=== PATIENT | female | born 1960 | race Caucasian/White ===

== ENCOUNTER 2017-06-15 10:24 | Inpatient (IN) | payer BC, OTHER ==
[~2017-06-15] VITALS: Ht 157.5 cm; Wt 53.2 kg
[2017-06-15] VITALS (9 sets, daily range): BP systolic 113–136; BP diastolic 62–77; PULSE 64–86; RESP 15–20; TEMP 97.5–99.2; O2SAT 99–100
[~2017-06-15 10:24] MED LIST: LISI5 PO; ONDANSETRON HCL 4 MG/2 ML VIAL IV PUSH ONE; PROPOFOL 200 MG/20 ML AMP IV ONE
--- NOTE | 2017-06-15 11:07 | PD ---
HPI Chief Complaint: Headache Time Seen by Provider: 10:46 Travel History International Travel<30 days: No Contact w/Intl Traveler<30days: No Traveled to known affect area: No History of Present Illness HPI 57yo F with PMH of HTN presents to the ED with c/o headache and bilateral lower extremity weakness today. states last normal was 7:30am today and she was walking around. Pt has had similar headache before but not this bad and headache started around 8am. Also with some tingling in bilateral legs. She states she felt a little better when she lied down. +Nausea. Denies any fever , chest pain, sob, vomiting, abdominal pain. PFSH Past Medical History Arthritis: Yes Asthma: No Heart Rhythm Problems: No Cancer: No Cardiovascular Problems: Yes (HTN) High Cholesterol: No Chest Pain: No Congestive Heart Failure: No COPD: No Diabetes: No Diminished Hearing: No Gastrointestinal Disorders: No GERD: No Glaucoma: No Genitourinary: No Hepatitis: No Hiatal Hernia: No Hypertension: Yes Kidney Stones: No Musculoskeletal: Yes Neurologic: No Reproductive: No Respiratory: No Myocardial Infarction: No Renal Failure: No Sleep Apnea: No Thyroid Disease: No Ulcer: No PNEUMOCCOCAL Vaccine (Year): 2 Menopausal: Yes Tubal Ligation: Yes (1987) Past Surgical History Abdominal Surgery: No Appendectomy: No Cardiac Surgery: No Cholecystectomy: No Ear Surgery: No Endocrine Surgery: No Eye Surgery: No Genitourinary Surgery: No Gynecologic Surgery: Yes (TUBAL LIGATION) Neurologic Surgery: No Oral Surgery: Yes Pacemaker: No Thoracic Surgery: No Other Surgery: Yes (TUBAL) Social History Alcohol Use: No Tobacco Use: No Substance Use: No Allergies-Medications (Allergen,Severity, Reaction): Coded Allergies: No Known Allergies (Verified , 02/25/16) Reported Meds & Prescriptions Reported Meds & Active Scripts Active Reported Lisinopril 5 Mg Tab 5 Mg PO DAILY Review of Systems Except as stated in HPI: all other systems reviewed are Neg Physical Exam Narrative GENERAL: 57yo F in mild distress. SKIN: Focused skin assessment warm/dry. HEAD: Abrasion chin and nose. EYES: Pupils equal and round. EOMI. No scleral icterus. No injection or drainage. ENT: No nasal bleeding or discharge. Mucous membranes pink and moist. NECK: Trachea midline. No JVD. CARDIOVASCULAR: Regular rate and rhythm. No murmur appreciated. RESPIRATORY: No accessory muscle use. Clear to auscultation. Breath sounds equal bilaterally. GASTROINTESTINAL: Abdomen soft, non-tender, nondistended. MUSCULOSKELETAL: No obvious deformities. No clubbing. No cyanosis. No edema. NEUROLOGICAL: Awake and alert. No obvious cranial nerve deficits. Pt unable to life bilateral lower extremity against gravity. NIH stroke scale 4. PSYCHIATRIC: Appropriate mood and affect; insight and judgment normal. Data Data Last Documented VS Vital Signs Date Time Temp Pulse Resp B/P Pulse Ox O2 Delivery O2 Flow Rate FiO2 06/15/17 13:00 68 15 136/66 100 06/15/17 12:22 Nasal Cannula 2 06/15/17 10:[address] Brain W/O Iv Contrast(Rout) (06/15/17 ) Complete Blood Count With Diff (06/15/17 10:56) Basic Metabolic Panel (Bmp) (06/15/17 10:56) Prothrombin Time / Inr (Pt) (06/15/17 10:56) Act Partial Throm Time (Ptt) (06/15/17 10:56) Blood Glucose (06/15/17 11:00) Cta Brain W Iv Contrast W 3d (06/15/17 ) Cta Neck W Iv Contrast W 3d (06/15/17 11:25) Type And Screen (06/15/17 11:27) I-Stat Creatinine (06/15/17 11:27) Ondansetron Inj (Zofran Inj) (06/15/17 11:45) Levetiracetam 1000 Mg Inj (Keppra 1000 M (06/15/17 11:45) Ondansetron Inj (Zofran Inj) (06/15/17 11:32) I-Stat Profile (06/15/17 11:27) Iohexol 350 Inj (Omnipaque 350 Inj) (06/15/17 12:33) Morphine Inj (Morphine Inj) (06/15/17 13:00) Admit Order (Ed Use Only) (06/15/17 13:01) Consult Neurosurgery (06/15/17 ) Labs Laboratory Tests Test 06/15/17 11:27 White Blood Count 12.1 TH/MM3 Red Blood Count 4.08 MIL/MM3 Hemoglobin 12.8 GM/DL Bedside Hemoglobin 13.6 G/DL Hematocrit 37.6 % Bedside Hematocrit 40.0 % Mean Corpuscular Volume 92.1 FL Mean Corpuscular Hemoglobin 31.2 PG Mean Corpuscular Hemoglobin 33.9 % Concent Red Cell Distribution Width 13.3 % Platelet Count 334 TH/MM3 Mean Platelet Volume 7.4 FL Neutrophils (%) (Auto) 76.3 % Lymphocytes (%) (Auto) 16.1 % Monocytes (%) (Auto) 6.5 % Eosinophils (%) (Auto) 0.6 % Basophils (%) (Auto) 0.5 % Neutrophils # (Auto) 9.3 TH/MM3 Lymphocytes # (Auto) 1.9 TH/MM3 Monocytes # (Auto) 0.8 TH/MM3 Eosinophils # (Auto) 0.1 TH/MM3 Basophils # (Auto) 0.1 TH/MM3 CBC Comment DIFF FINAL Differential Comment Prothrombin Time 10.4 SEC Prothromb Time International 0.9 RATIO Ratio Activated Partial 27.0 SEC Thromboplast Time Bedside Sodium 134 MMOL/L Sodium Level 134 MEQ/L Bedside Potassium 4.0 MMOL/L Potassium Level 4.0 MEQ/L Bedside Chloride 98 MMOL/L Chloride Level 100 MEQ/L Carbon Dioxide Level 26.3 MEQ/L Anion Gap 8 MEQ/L Bedside Blood Urea Nitrogen 13 MG/DL Blood Urea Nitrogen 12 MG/DL Creatinine 0.73 MG/DL Bedside Creatinine 0.6 MG/DL Estimat Glomerular Filtration 82 ML/MIN Rate Bedside Glucose 131 MG/DL Random Glucose 122 MG/DL Calcium Level 9.1 MG/DL Blood Type A POSITIVE Antibody Screen NEGATIVE Blood Bank Comment MDM Medical Decision Making Medical Screen Exam Complete: Yes Emergency Medical Condition: Yes Differential Diagnosis CVA vs. SAH vs. migraine headache Narrative Course 57yo F with sudden onset headache at 8am along with bilateral lower extremity weakness. CT brain showed extensive subarachnoid hemorrhage throughout frontoparietal mid to high convexities and throughout the basilar cisterns. Recommend CTA to evaluate for aneurym. Minimally prominent lateral ventricles without evidence of intraventricular blood products. Pt was empirically given keppra 1000mg IV for seizure prophylaxis. Blood pressure has been normal. I discussed case with Dr. Yen at 11:22am and he states that management depends on what the CTA shows. BP is currently 126/74. Pt is AAOx3 but nauseous and vomited. Zofran ordered. Pt reevaluated at bedside and no more episodes of vomiting. Pt still with severe headache. Since pt is in a lot pain, will give morphine 2mg IV. Labs reviewed, WBC 12.1. H/H 12.8/37.6. Platelet normal. CMP unremarkable. I discussed with case with Dr. Farley and accepted to his service. CTA brain showed [id number] saccular bilobed ACOM aneurysm that interventional radiologist states may be amendable to coiling. I discussed this with Dr. Yen and he wants pt admitted to ICU. Critical Care Narrative Aggregate critical care time was 60 minutes. Time to perform other separately billable procedures was not included in the critical care time. My time did not include minutes spent treating any other patients simultaneously or on activities that did not directly contribute to the patient's treatment. The services I provided to this patient were to treat and/or prevent clinically significant deterioration that could result in: cardiovascular collapse or . I provided critical care services requiring my management, as noted below: Chart data review, documentation time, medication orders and management, vital sign assessments/reviewing monitor data, ordering and reviewing lab tests, ordering and interpreting/reviewing x-rays and diagnostic studies, care of the patient and discussion of the patient with the admitting physicians. Diagnosis Primary Impression: SAH (subarachnoid hemorrhage) Admitting Information Admitting Physician Requests: it Nicol Campbell DO Jun 15, 2017 11:07
--- NOTE | 2017-06-15 11:21 | RADRPT ---
EXAM DATE/TIME: 06/15/2017 11:02 [facility] COMPARISON: No previous studies available for comparison. INDICATIONS : Headache with lower extremity weakness. RADIATION DOSE: 56.35 CTDIvol (mGy) MEDICAL HISTORY : Hypertension. SURGICAL HISTORY : None. ENCOUNTER: Initial ACUITY: 1 day PAIN SCALE: 8/10 LOCATION: Bilateral cranial TECHNIQUE: Multiple contiguous axial images were obtained of the head. Using automated exposure control and adj ustment of the mA and/or kV according to patient size, radiation dose was kept as low as reasonably a chievable to obtain optimal diagnostic quality images. DICOM format image data is available electro nically for review and comparison. FINDINGS: CEREBRUM: Abnormal examination. Extensive subarachnoid hemorrhage throughout the frontoparietal mid high convex ities with extra-axial blood proximal to throughout the basilar cisterns. No intraventricular fractur e noted. Ventricles are minimally prominent given the brain density no evidence of further subfalcian or transtentorial herniation. Galindo-white matter differentiation is intact. POSTERIOR FOSSA: The cerebellum and brainstem are intact. The 4th ventricle is midline. The cerebellopontine angle i s unremarkable. EXTRACRANIAL: The visualized portion of the orbits is intact. SKULL: The calvaria is intact. No evidence of skull fracture. CONCLUSION: 1. Extensive subarachnoid hemorrhage throughout the frontoparietal mid to high convexities and throug hout the basilar cisterns. Recommend CTA examination to evaluate for aneurysm. 2. Minimally prominent lateral ventricles without evidence of intraventricular blood products. Findings were personally discussed with Dr. Campbell at 11:14 AM. Brown Schuler MD on June 15, 2017 at 11:12 Board Certified Radiologist. This report was verified electronically.
[2017-06-15] MEDS ORDERED: ONDANSETRON HCL 4 MG/2 ML VIAL ONE (11:32)
[2017-06-15] MEDS ORDERED: levETIRAcetam 1000 MG INJ 100 ML IV ONE (11:45)
[2017-06-15] MEDS ORDERED: ONDANSETRON HCL 4 MG/2 ML VIAL IV PUSH ONE (11:45)
[2017-06-15 11:47] LABS: AUTOMATED NEUTROPHIL # 9.3 TH/MM3 (1.8-7.7); BASOPHIL # 0.1 TH/MM3 (0-0.2); BASOPHIL % 0.5 % (0.0-2.0); EOSINOPHIL # 0.1 TH/MM3 (0-0.4); EOSINOPHIL % 0.6 % (0.0-4.0); HEMATOCRIT 37.6 % (35.0-46.0); HEMO FLAGS DIFF FINAL; LYMPH % 16.1 % (9.0-44.0); LYMPHOCYTE # 1.9 TH/MM3 (1.0-4.8); MEAN CELL VOLUME 92.1 FL (80.0-100.0); MEAN CORPUSCULAR HEMOGLOBIN 31.2 PG (27.0-34.0); MEAN CORPUSCULAR HGB CONC 33.9 % (32.0-36.0); MONO % 6.5 % (0.0-8.0); NEUT % 76.3 % (16.0-70.0); PLATELET COUNT 334 TH/MM3 (150-450); RED BLOOD COUNT 4.08 MIL/MM3 (4.00-5.30); RED CELL DISTRIBUTION WIDTH 13.3 % (11.6-17.2); WHITE BLOOD COUNT 12.1 TH/MM3 (4.0-11.0)
[2017-06-15 11:55] LABS: INTERNATIONAL NORMALIZED RATIO 0.9 RATIO; PROTHROMBIN TIME - PATIENT 10.4 SEC (9.8-11.6)
[2017-06-15 12:05] LABS: BICARBONATE 26.3 MEQ/L (21.0-32.0)
[2017-06-15] MEDS ORDERED: IOHEXOL 350 MG/ML 10 ML VIAL (for RAD DIAG) IV ONE (12:33)
[2017-06-15] MEDS ORDERED: MORPHINE SULFATE 4 MG/ML INJ IV PUSH ONE (13:00)
--- NOTE | 2017-06-15 13:00 | RADRPT ---
EXAM DATE/TIME: 06/15/2017 12:10 [facility] COMPARISON: CT BRAIN W/O CONTRAST, June 15, 2017, 11:02. INDICATIONS : Evaluate bleed IV CONTRAST: 75 cc Omnipaque 350 (iohexol) IV ; Cumulative dose for multiple exams. RADIATION DOSE: 24.36 CTDIvol (mGy) ; Combined studies MEDICAL HISTORY : Hypertension. SURGICAL HISTORY : Tubal ligation. ENCOUNTER: Initial ACUITY: 1 day PAIN SCALE: 10/10 LOCATION: CTA BRAIN TECHNIQUE: Volumetric scanning was performed using a multi-row detector CT scanner. The data was post processed with a variety of visualization algorithms including full volume maximum intensity projection, multi -planar sliding thin slab reformation, curved planar reformation, and surface rendering techniques. Using automated exposure control and adjustment of the mA and/or kV according to patient size, radiat ion dose was kept as low as reasonably achievable to obtain optimal diagnostic quality images. DICO M format image data is available electronically for review and comparison. FINDINGS: There is excellent visualization of the major intracranial arteries out to the second-order branch ve ssels. A 5 x 4 x 3 mm saccular aneurysm is seen arising from the anterior communicating artery. It i s lobulated in contour. It projects left anteriorly and inferiorly. The dome to neck ratio is approxi mately 1.3. There is absence of the right A1 segment with a dominant left A1 segment and anterior com municating artery. Persistent circulation is seen on the right. No other aneurysms observed. Th e ICAs are quite tortuous. No significant vasospasm. CONCLUSION: 5 x 4 x 3 mm saccular, bilobed ACOM aneurysm as detailed above. Emile Walker Jr., MD on June 15, 2017 at 12:46 Board Certified Radiologist. This report was verified electronically.
--- NOTE | 2017-06-15 13:02 | RADRPT ---
EXAM DATE/TIME: 06/15/2017 12:10 [facility] COMPARISON: No previous studies available for comparison. INDICATIONS : Evaluate bleed IV CONTRAST: 75 cc Omnipaque 350 (iohexol) IV RADIATION DOSE: 24.36 CTDIvol (mGy) MEDICAL HISTORY : Hypertension. SURGICAL HISTORY : Tubal ligation. ENCOUNTER: Initial ACUITY: 1 day PAIN SCALE: 10/10 LOCATION: CTA NECK Elevated flow velocities and ICA/CCA ratios have been found to correlate with increased degrees of vessel stenosis, calculated as percentage of diameter relative to a normal segment of distal ICA/CCA. TECHNIQUE: Volumetric scanning was performed using a multirow detector CT scanner. The data was post processed with a variety of visualization algorithms including full-volume maximum intensity projection, multip lanar sliding thin-slab reformation, curved-planar reformation, and surface-rendering techniques. Us ing automated exposure control and adjustment of the mA and/or kV according to patient size, radiatio n dose was kept as low as reasonably achievable to obtain optimal diagnostic quality images. DICOM f ormat image data is available electronically for review and comparison. FINDINGS: AORTIC ARCH: The left common carotid artery arises from the right brachiocephalic artery. The left subclavian lisandro ry is normal.. No evidence of ostial narrowing. Separate origin of the left vertebral artery. RIGHT CAROTID: The common carotid artery is intact. The carotid bulb has a normal configuration without ulceration o r narrowing. The internal carotid artery lumen is smooth without stenosis. The external carotid lisandro ry is intact. LEFT CAROTID: The common carotid artery is intact. The carotid bulb has a normal configuration without ulceration or narrowing. The internal carotid artery lumen is smooth without stenosis. The external carotid ar kalpesh is intact. VERTEBRALS: The vertebral arteries have a symmetric diameter. No stenotic lesions are seen. CONCLUSION: 1. No stenosis of either carotid artery. 2. No aneurysm seen. 3. Normal variants of the aortic arch. Pascual Sanderson MD on June 15, 2017 at 12:56 Board Certified Radiologist. This report was verified electronically.
[2017-06-15] MEDS ORDERED: fentaNYL CITRATE 250 MCG/5 ML AMP ONE (13:28)
[2017-06-15] MEDS ORDERED: MAGNESIUM HYDROXIDE SUSP 30 ML CUP PO PRN (13:30)
[2017-06-15] MEDS ORDERED: SENNOSIDES 8.6 MG TAB PO PRN (13:30)
[2017-06-15] MEDS ORDERED: CHLORHEXIDINE GLUCONATE 2 % 1 PACK (2 CLOTHS) TOP PRN (13:30)
[2017-06-15] MEDS ORDERED: LACTULOSE SYRUP 20 GM/30 ML CUP PO PRN (13:30)
[2017-06-15] MEDS ORDERED: MISCELLANEOUS NURSING INFORMATION XX SCH (13:30)
[2017-06-15] MEDS ORDERED: BISACODYL 10 MG SUPP RECTAL PRN (13:30)
[2017-06-15] MEDS ORDERED: VERAPAMIL HCL 5 MG/2 ML VIAL ONE ×2 (13:40→14:43)
[2017-06-15] MEDS ORDERED: LISI-519 PO (14:06)
--- NOTE | 2017-06-15 14:13 | MB ---
cc: JACY BORGES M.D. DATE OF CONSULTATION: 06/15/2017 REASON FOR CONSULTATION Subarachnoid hemorrhage from ruptured cerebral aneurysm. HISTORY OF PRESENT ILLNESS This 57-year-old right-handed female had the acute onset of severe headache early this morning and also complained of weakness in her legs, left more than right, along with paresthesias and subsequently became more lethargic. She was found on the floor by her with positive complaints of nausea. On arrival to the emergency room she was lethargic but responsive. CT scan of the head obtained reveals extensive diffuse subarachnoid hemorrhage involving the basal cisterns and also extending into the bilateral sylvian fissure and interhemispheric fissure and prepontine fissure along with suprasellar cistern. There is also mild hydrocephalus associated with this and slight dilation of the temporal horns bilaterally. 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 The patient is lethargic but does respond to verbal commands and follows simple instructions. PAST MEDICAL HISTORY Hypertension, otherwise unremarkable. MEDICATIONS She is on lisinopril 5 mg daily. ALLERGIES No known drug allergies. SOCIAL HISTORY She is and her and daughter are here with her. She smokes a pack of cigarettes a day and usually drinks a few beers a day. REVIEW OF SYSTEMS Positive for headache. Positive for nausea and vomiting. Positive for weakness and numbness in her legs. Positive for lethargy. Otherwise all systems are negative. LABORATORY STUDIES White blood cell count 12.1, hemoglobin 12.8, platelet count 334. PT 10.4, INR 0.9, PTT 27. Sodium 134, potassium 4.0, BUN 13, creatinine 0.6, glucose 131. PHYSICAL EXAMINATION VITAL SIGNS: Temperature 99.2, pulse 73, respiratory rate 18, blood pressure 132/75. Oxygen saturation 100% on two liters nasal cannula. HEAD: Normocephalic, atraumatic. NECK: She has nuchal rigidity. CHEST: Clear to auscultation bilaterally. HEART: Regular rate and rhythm. Normal S1, S2. ABDOMEN: Soft, nontender. EXTREMITIES: No cyanosis or edema. NEUROLOGIC: She is lethargic but arouses to verbal stimulation briefly. Pupils are equal and reactive. Extraocular muscles are intact. Face is symmetric. She moves all four extremities although relates weakness in the left lower extremity, 4-/5. Negative Babinski. Her speech is fluent. She is oriented to name, location, the month and year. IMPRESSION 1. 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 2. Hypertension. PLAN I have discussed the findings with the interventional radiologist, Dr. Emile Walker, who feels that this aneurysm can be treated endovascularly with coiling and he plans on proceeding with this procedure. She will be started on nimodipine for vasospasm prophylaxis along with Keppra for seizure prophylaxis. Her head of bed will be kept elevated at 30 degrees. Sequential compression devices will be used for DVT prophylaxis along with Protonix for gastrointestinal stress ulcer prophylaxis. Until the aneurysm has been coiled and secured will maintain the systolic blood pressure less than 150s to decrease the risk of re-bleed. If her neurologic condition deteriorates then I also recommended that she be intubated for airway control and will place a ventriculostomy for treatment of progression of this hydrocephalus. I have discussed the findings at length with the patient, and daughter as well as the sequelae of subarachnoid hemorrhage which includes development of hydrocephalus, vasospasm, stroke, brain swelling with consequent significant neurologic deficits including coma and . Her condition obviously is very critical with a guarded prognosis. MD CM Mcdonald/GILBERTO /1:41 PM /2:04 PM
[2017-06-15] MEDS ORDERED: ceFAZolin 2 GM PREMIX 50 ML ONE (14:22)
[2017-06-15] MEDS ORDERED: HEPARIN SODIUM - IV 10,000 UNITS/10 ML VIAL ONE (14:43)
--- NOTE | 2017-06-15 14:52 | HHI.HP ---
HPI Service Critical Care Medicine Primary Care Physician Unknown Admission Diagnosis SAH Diagnosis: (1) SAH (subarachnoid hemorrhage) Diagnosis: Principal (2) Aneurysm of anterior communicating artery Diagnosis: Principal Chief Complaint: Headache, leg weakness Travel History International Travel<30 Days: No Contact w/Intl Traveler <30 Da: No Traveled to Known Affected Are: No History of Present Illness 57 y/o woman with history of hypertension presents to ED after about 6 hours of worsening headache, followed by nausea and lower extremity weakness. CT head reveals diffuse subarachnoid hemorrhage. CTA demonstrates anterior communicating artery aneurysm. Reviewed by Drs. Yen and Aaron, taken directly to interventional radiology for coiling. BP control accomplished, nimodipine, Keppra started. Review of Systems Constitutional: DENIES: Diaphoretic episodes, Fatigue, Fever, Weight gain, Weight loss, Chills, Dizziness, Change in appetite, Night Sweats Endocrine: DENIES: Abnorml menstrual pattern, Heat/cold intolerance, Polydipsia , Polyuria, Polyphagia Eyes: DENIES: Blurred vision, Diplopia, Eye inflammation, Eye pain, Vision loss , Photosensitivity, Double Vision Ears, nose, mouth, throat: DENIES: Tinnitus, Hearing loss, Vertigo, Nasal discharge, Oral lesions, Throat pain, Hoarseness, Ear Pain, Running Nose, Epistaxis, Sinus Pain, Toothache, Odynophagia Respiratory: DENIES: Apneas, Cough, Snoring, Wheezing, Hemoptysis, Sputum production, Shortness of breath Cardiovascular: DENIES: Chest pain, Palpitations, Syncope, Dyspnea on Exertion , PND, Lower Extremity Edema, Orthopnea, Claudication Musculoskeletal: DENIES: Joint pain, Muscle aches, Stiffness, Joint Swelling, Back pain, Neck pain Integumentary: DENIES: Abnormal pigmentation, Pruritus, Rash, Nail changes, Breast masses, Breast skin changes, Nipple discharge Hematologic/lymphatic: DENIES: Bruising, Lymphadenopathy Neurologic: COMPLAINS OF: Headache, Localized weakness Psychiatric: DENIES: Anxiety, Confusion, Mood changes, Depression, Hallucinations, Agitation, Suicidal Ideation, Homicidal Ideation, Delusions Past Family Social History Allergies: Coded Allergies: No Known Allergies (Verified , 02/25/16) Past Medical History Past Medical History Arthritis: Yes Asthma: No Heart Rhythm Problems: No Cancer: No Cardiovascular Problems: Yes (HTN) High Cholesterol: No Chest Pain: No Congestive Heart Failure: No COPD: No Diabetes: No Diminished Hearing: No Gastrointestinal Disorders: No GERD: No Glaucoma: No Genitourinary: No Hepatitis: No Hiatal Hernia: No Hypertension: Yes Kidney Stones: No Musculoskeletal: Yes Neurologic: No Reproductive: No Respiratory: No Myocardial Infarction: No Renal Failure: No Sleep Apnea: No Thyroid Disease: No Ulcer: No PNEUMOCCOCAL Vaccine (Year): 2 Menopausal: Yes Tubal Ligation: Yes (1987) Past Surgical History Abdominal Surgery: No Appendectomy: No Cardiac Surgery: No Cholecystectomy: No Ear Surgery: No Endocrine Surgery: No Eye Surgery: No Genitourinary Surgery: No Gynecologic Surgery: Yes (TUBAL LIGATION) Neurologic Surgery: No Oral Surgery: Yes Pacemaker: No Thoracic Surgery: No Other Surgery: Yes (TUBAL) Social History Alcohol Use: No Tobacco Use: No Substance Use: No Allergies-Medications Allergies-Medications (Allergen,Severity, Reaction): Coded Allergies: No Known Allergies (Verified , 02/25/16) Reported Meds & Prescriptions Reported Meds & Active Scripts Active Reported Lisinopril 5 Mg Tab 5 Mg PO DAILY Physical Exam Vital Signs Vital Signs Date Time Temp Pulse Resp B/P Pulse Ox O2 Delivery O2 Flow Rate FiO2 06/15/17 13:40 16 99 Nasal Cannula 06/15/17 13:00 68 15 136/66 100 06/15/17 12:22 73 18 132/75 100 Nasal Cannula 2 06/15/17 11:53 66 20 130/65 100 06/15/17 11:04 135/77 06/15/17 10:38 99.2 74 16 126/74 100 06/15/17 10:38 100 Nasal Cannula 2 Physical Exam Gen: Lethargic, midde age woman. Head: Atraumatic. Neck: Supple, airway widely patent. Lungs: Clear, no wheezes or crackles. Normal excursions. Heart: RRR, no m,r. No JVD. Abdomen: Soft, no guarding. Extremities: Warm, well perfused. Neuro: O X 3, lethargic. Moves 4 limbs to command and can now lift both legs with 5/5 strength. DORYS, EOMs intact. Tracks with eyes, DORYS. Laboratory Laboratory Tests Test 06/15/17 11:27 White Blood Count 12.1 Red Blood Count 4.08 Hemoglobin 12.8 Bedside Hemoglobin 13.6 Hematocrit 37.6 Bedside Hematocrit 40.0 Mean Corpuscular Volume 92.1 Mean Corpuscular Hemoglobin 31.2 Mean Corpuscular Hemoglobin 33.9 Concent Red Cell Distribution Width 13.3 Platelet Count 334 Mean Platelet Volume 7.4 Neutrophils (%) (Auto) 76.3 Lymphocytes (%) (Auto) 16.1 Monocytes (%) (Auto) 6.5 Eosinophils (%) (Auto) 0.6 Basophils (%) (Auto) 0.5 Neutrophils # (Auto) 9.3 Lymphocytes # (Auto) 1.9 Monocytes # (Auto) 0.8 Eosinophils # (Auto) 0.1 Basophils # (Auto) 0.1 CBC Comment DIFF FINAL Differential Comment Prothrombin Time 10.4 Prothromb Time International 0.9 Ratio Activated Partial 27.0 Thromboplast Time Bedside Sodium 134 Sodium Level 134 Bedside Potassium 4.0 Potassium Level 4.0 Bedside Chloride 98 Chloride Level 100 Carbon Dioxide Level 26.3 Anion Gap 8 Bedside Blood Urea Nitrogen 13 Blood Urea Nitrogen 12 Creatinine 0.73 Bedside Creatinine 0.6 Estimat Glomerular Filtration 82 Rate Bedside Glucose 131 Random Glucose 122 Calcium Level 9.1 Blood Type A POSITIVE Antibody Screen NEGATIVE Blood Bank Comment Result Diagram: 06/15/17 1127 06/15/17 1127 Assessment and Plan Problem List: (1) SAH (subarachnoid hemorrhage) ICD Code: I60.9 Status: Acute (2) Aneurysm of anterior communicating artery ICD Code: I67.1 Status: Acute Assessment and Plan Plan: 1. BP control < 140/90 with cardene prn. 2. Labetalol prn immediate control. 3. HOB elevated. 4. No chemical DVT prophylaxis. 5. SCDs. 6. NS iv at 50/hr. 7. Nimodipine 60 mg q4h. 8. Electrolyte protocol. 9. To IR for coiling. 10. Protonix. Overall impression: Extensive SAH associated with a-com aneurysm. She is critically ill and will likely require intubation and mechanical ventilation. BP control acceptable. Update: Back from IR and successful coiling. Extubated in PACU. Lethargic. Will follow airway closely. Critical care 44 mins Eric Karimi MD Jun 15, 2017 14:52
[2017-06-15] MEDS ORDERED: IODIXANOL 320 MG/ML 50 ML VIAL (for RAD SPEC) I-ARTERIAL ONE (15:45)
[2017-06-15] MEDS ORDERED: SODIUM PHOSPHATE INJ 30 MMOL in SODIUM CHLOR 0.9% 250 ML INJ 240 ML IV PRN (16:15)
[2017-06-15] MEDS ORDERED: MAGNESIUM OXIDE 400 MG TAB PO PRN (16:15)
[2017-06-15] MEDS ORDERED: POTASSIUM PHOSPHATE INJ 30 MMOL in SODIUM CHLOR 0.9% 250 ML INJ 250 ML IV PRN (16:15)
[2017-06-15] MEDS ORDERED: POTASSIUM CHLOR 20 MEQ PREMIX 100 ML IV PRN ×2 (16:15)
[2017-06-15] MEDS ORDERED: MAGNESIUM SULFATE INJ 4 GM in SODIUM CHLORIDE 0.9% INJ 92 ML IV PRN (16:15)
[2017-06-15] MEDS ORDERED: POTASSIUM CHLORIDE 25 MEQ EFFERVESCENT TAB PO PRN (16:15)
[2017-06-15] MEDS ORDERED: POTASSIUM PHOSPHATE MONOBASIC 500 MG TAB PO PRN (16:15)
[2017-06-15] MEDS ORDERED: POTASSIUM CHLOR 40 MEQ PREMIX 100 ML IV PRN ×2 (16:15)
[2017-06-15] MEDS ORDERED: POTASSIUM PHOSPHATE MONOBASIC 500 MG TAB PO/TUBE PRN (16:15)
[2017-06-15] MEDS ORDERED: MAGNESIUM SULFATE INJ 2 GM in SODIUM CHLORIDE 0.9% INJ 96 ML IV PRN (16:15)
--- NOTE | 2017-06-15 16:59 | PD.RAD ---
Post Procedure Progress Note Pre Procedure Diagnosis: (1) SAH (subarachnoid hemorrhage) (2) Aneurysm of anterior communicating artery Post Procedure Diagnosis: (1) SAH (subarachnoid hemorrhage) (2) Aneurysm of anterior communicating artery Procedure Date: Jun 15, 2017 Supervising Radiologist: Emile Walker JR Proceduralist/Assist: Dolores Mahmood, RT(R)(), Scar Hernandez, RT(R), Елена Chandler, RT(R), Caity Cabrera, RT(R)() Anesthesia: General Plan of Activity Patient to Unit: PACU Patient Condition: Good See PACS Report for procedural detail/treatment Vascular-Arterial Procedure Procedure 1 Procedure Site: Cerebral Procedure(s): Intracranial Aneurysm Repair Access Access Site(s): Right Femoral Artery Closure Site(s): Right vascular closure device Findings: 5x4x3 mm ACOM aneurysm successfully treated with coil embolization. No significant vasospasm seen involving the left intracranial vasculature. Jr. Aaron,Emile Dhaliwal MD Jun 15, 2017 16:59
[2017-06-15] MEDS ORDERED: DO NOT ADM ANY ANTICOAGULANT DRUGS PRN (17:00)
[2017-06-15] MEDS ORDERED: TERBUTALINE INJ 1 MG/ML AMP SQ PRN (18:45)
[2017-06-15] MEDS: levETIRAcetam INJ 500 MG in SODIUM CHLORIDE 0.9% INJ 100 ML IV SCH (20:00)
[2017-06-15] MEDS ORDERED: niCARdipine INJ 25 MG in SODIUM CHLOR 0.9% 250 ML INJ 250 ML IV SCH (20:00)
[2017-06-15] MEDS: DOCUSATE SODIUM 50 MG/SENNA 8.6 MG TAB PO SCH (20:01)
[2017-06-15] MEDS: niMODipine 30 MG CAP PO SCH (20:01)
[2017-06-15] MEDS: NOREPINEPHRINE-DEXTROSE DRIP 250 ML IV SCH (20:05)
[2017-06-15] MEDS: ONDANSETRON HCL 4 MG/2 ML VIAL IV PRN (22:00)
[2017-06-16] VITALS (10 sets, daily range): BP systolic 118–138; BP diastolic 56–74; PULSE 58–100; RESP 12–24; TEMP 97.7–98.8; O2SAT 95–99
[2017-06-16] MEDS: ONDANSETRON HCL 4 MG/2 ML VIAL IV PRN ×2 (03:38→13:42)
[2017-06-16] MEDS: CHLORHEXIDINE GLUCONATE 2 % 1 PACK (2 CLOTHS) TOP SCH (04:00)
[2017-06-16] MEDS: niMODipine 30 MG CAP PO SCH ×6 (04:27→20:30)
[2017-06-16 05:19] LABS: BICARBONATE 25.7 MEQ/L (21.0-32.0); MAGNESIUM 1.9 MG/DL (1.5-2.5); POTASSIUM 3.5 MEQ/L (3.5-5.1)
[2017-06-16] MEDS: SODIUM CHLOR 0.9% 1000 ML INJ 1,000 ML IV SCH ×2 (06:08→17:47)
[2017-06-16] MEDS: MORPHINE SULFATE 4 MG/ML INJ IV PRN ×3 (07:58→11:15)
[2017-06-16] MEDS: PANTOPRAZOLE SOD 40 MG DELAYED RELEASE TAB PO SCH (09:48)
[2017-06-16] MEDS: DOCUSATE SODIUM 50 MG/SENNA 8.6 MG TAB PO SCH ×2 (09:48→20:30)
[2017-06-16] MEDS: levETIRAcetam INJ 500 MG in SODIUM CHLORIDE 0.9% INJ 100 ML IV SCH ×2 (09:48→20:28)
--- NOTE | 2017-06-16 10:32 | EKG ---
Date Performed: 06/15/2017 Time Performed: 11:28:46 PTAGE: 57 years EKG: Sinus rhythm NORMAL ECG NO PREVIOUS TRACING DOCTOR: Anant Vivar Interpretating Date/Time 06/16/2017 10:30:29
--- NOTE | 2017-06-16 10:49 | HHI.NSPN ---
(Pascual Flores) History Chief Complaint: Headache. Ruptured POLLO aneurysm, s/p coiling. (Pascual Flores) Interval History This 57-year-old right-handed female had the acute onset of severe headache early this morning and also complained of weakness in her legs, left more than right, along with paresthesias and subsequently became more lethargic. She was found on the floor by her with positive complaints of nausea. On arrival to the emergency room she was lethargic but responsive. CT scan of the head obtained reveals extensive diffuse subarachnoid hemorrhage involving the basal cisterns and also extending into the bilateral sylvian fissure and interhemispheric fissure and prepontine fissure along with suprasellar cistern. There is also mild hydrocephalus associated with this and slight dilation of the temporal horns bilaterally. 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 The patient is lethargic but does respond to verbal commands and follows simple instructions. 06/16/17: 5x4x3 mm ACOM aneurysm successfully treated with coil embolization on 06/15/17. No significant vasospasm seen involving the left intracranial vasculature per interventional radiology. Pt awakens to voice. Complains of headache all over. Has nausea and had episode of vomiting last night. Pt denies any paresthesias or weakness. She is lethargic and prefers her eyes closed, but awakens to voice. (Pascual Flores) Review of Systems General: Negative for: fever, chills, insomnia Respiratory: Negative for: shortness of breath, cough, sputum Cardiovascular: Negative for: chest pain Gastrointestinal: Positive for: nausea, vomitting, Negative for: diarrhea, constipation (Pascual Flores) Exam Results Vital Signs Date Time Temp Pulse Resp B/P Pulse Ox O2 Delivery O2 Flow Rate FiO2 06/16/17 07:00 96 Nasal Cannula 1.00 06/16/17 07:00 100 06/16/17 04:00 97.9 14 118/56 Intake and Output 06/15/17 06/15/17 06/16/17 08:00 16:00 00:00 Intake Total 2374 ml Output Total 710 ml Balance 1664 ml (Pascual Flores) Physical Examination Resp: CTA bilaterally Heart: NSR no murmurs Abd: Soft positive bs Skin: No cyanosis or erythema Muscle: Moves all 4 extremities, appears symmetric. Neuro: Pt awakens to voice but lethargic. Prefers eyes closed given her headache. She follows simple commands. Answers questions with simple yes/no response. Pupils 3mm bilaterally reactive bilaterally. Sensation intact to light touch in face and extremities. (Pascual Flores) Lab, Micro, Other Results Last Impressions Neck CTA 06/15/17 1125 Signed Impressions: Service Date/Time: Thursday, June 15, 2017 12:10 - CONCLUSION: 1. No stenosis of either carotid artery. 2. No aneurysm seen. 3. Normal variants of the aortic arch. Pascual Sanderson MD Head CTA 06/15/17 0000 Signed Impressions: Service Date/Time: Thursday, June 15, 2017 12:10 - CONCLUSION: 5 x 4 x 3 mm saccular, bilobed ACOM aneurysm as detailed above. Emile Walker Jr., MD Head CT 06/15/17 0000 Signed Impressions: Service Date/Time: Thursday, June 15, 2017 11:02 - CONCLUSION: 1. Extensive subarachnoid hemorrhage throughout the frontoparietal mid to high convexities and throughout the basilar cisterns. Recommend CTA examination to evaluate for aneurysm. 2. Minimally prominent lateral ventricles without evidence of intraventricular blood products. Findings were personally discussed with Dr. Campbell at 11:14 AM. Brown Schuler MD Laboratory Tests Test 06/15/17 06/15/17 06/16/17 11:27 18:40 04:33 White Blood Count 12.1 TH/MM3 Red Blood Count 4.08 MIL/MM3 Hemoglobin 12.8 GM/DL Bedside Hemoglobin 13.6 G/DL Hematocrit 37.6 % Bedside Hematocrit 40.0 % Mean Corpuscular Volume 92.1 FL Mean Corpuscular Hemoglobin 31.2 PG Mean Corpuscular Hemoglobin 33.9 % Concent Red Cell Distribution Width 13.3 % Platelet Count 334 TH/MM3 Mean Platelet Volume 7.4 FL Neutrophils (%) (Auto) 76.3 % Lymphocytes (%) (Auto) 16.1 % Monocytes (%) (Auto) 6.5 % Eosinophils (%) (Auto) 0.6 % Basophils (%) (Auto) 0.5 % Neutrophils # (Auto) 9.3 TH/MM3 Lymphocytes # (Auto) 1.9 TH/MM3 Monocytes # (Auto) 0.8 TH/MM3 Eosinophils # (Auto) 0.1 TH/MM3 Basophils # (Auto) 0.1 TH/MM3 CBC Comment DIFF FINAL Differential Comment Prothrombin Time 10.4 SEC Prothromb Time International 0.9 RATIO Ratio Activated Partial 27.0 SEC Thromboplast Time Bedside Sodium 134 MMOL/L Sodium Level 134 MEQ/L 140 MEQ/L Bedside Potassium 4.0 MMOL/L Potassium Level 4.0 MEQ/L 3.5 MEQ/L Bedside Chloride 98 MMOL/L Chloride Level 100 MEQ/L 107 MEQ/L Carbon Dioxide Level 26.3 MEQ/L 25.7 MEQ/L Anion Gap 8 MEQ/L 7 MEQ/L Bedside Blood Urea Nitrogen 13 MG/DL Blood Urea Nitrogen 12 MG/DL 8 MG/DL Creatinine 0.73 MG/DL 0.59 MG/DL Bedside Creatinine 0.6 MG/DL Estimat Glomerular Filtration 82 ML/MIN 104 ML/MIN Rate Bedside Glucose 131 MG/DL Random Glucose 122 MG/DL 158 MG/DL Calcium Level 9.1 MG/DL 8.4 MG/DL Blood Type A POSITIVE Antibody Screen NEGATIVE Blood Bank Comment Nasal Screen MRSA (PCR) MRSA NOT DETECTED Phosphorus Level 2.8 MG/DL Magnesium Level 1.9 MG/DL 06/15/17 06/15/17 06/16/17 15:00 23:00 07:00 Intake Total 2374 ml 902 ml Output Total 710 ml 625 ml Balance 1664 ml 277 ml Intake Oral 360 ml IV Total 414 ml 902 ml Other 1600 ml Output Urine Total 700 ml 625 ml Estimated Blood Loss 10 ml # Bowel Movements 0 0 (Pascual Flores) Medical Decision Making Impression and Plan A: 57 y/o FM with diffuse subarachnoid hemorrhage involving the basal cisterns as well as the interhemispheric fissure with a mild hydrocephalus from a ruptured anterior communicating artery aneurysm. s/p aneurysm coiling by radiology special procedures. 2. Hypertension. PLAN Continue with close neuro checks. OOB to chair today Continue to monitor vitals. (Pascual Flores) Attending Statement The exam, history, and the medical decision-making described in the above note were completed with the assistance of the mid-level provider. I reviewed and agree with the findings presented. I attest that I had a [id number] encounter with the patient on the same day, and personally performed and documented my assessment and findings in the medical record. More alert and interactive today. Follows simple commands and moves all [address] scan of the head the pending this morning. Continue with close neurologic monitoring as she is high risk for development of vasospasm, hydrocephalus and cerebral swelling. Discussed with and family at bedside. relates that she is very anxious and restless and was requested we prescribe some sedatives. (Raffy Yen MD) Pascual Flores Jun 16, 2017 10:49 Raffy Yen MD Jun 16, 2017 11:21
--- NOTE | 2017-06-16 12:58 | RADRPT ---
EXAM DATE/TIME: 06/16/2017 12:10 [facility] COMPARISON: Prior study 06/15/17, use for comparison. INDICATIONS : Subarachnoid hemorrhage RADIATION DOSE: 29.52 CTDIvol (mGy) MEDICAL HISTORY : Hypertension. SURGICAL HISTORY : Tubal ligation. Coiling ENCOUNTER: Subsequent ACUITY: 2 days PAIN SCALE: 7/10 LOCATION: Cranial TECHNIQUE: Multiple contiguous axial images were obtained of the head. Using automated exposure control and adj ustment of the mA and/or kV according to patient size, radiation dose was kept as low as reasonably a chievable to obtain optimal diagnostic quality images. DICOM format image data is available electro nically for review and comparison. FINDINGS: Non-contrast head CT demonstrate there is significant residual subarachnoid hemorrhage throughout the suprasellar cistern and the subarachnoid space anteriorly. There is significant hemorrhage in both S ylvian fissures. There is hemorrhage around the perimesencephalic cisterns as well. The ventricles are mil dly prominent for age. There has been coiling of the anterior communicating aneurysm. CONCLUSION: The amount of subarachnoid hemorrhage is stable from the previous study. Aneurysm coil in good posit ion. Mild prominence of the ventricular system. Anant Cohen MD on June 16, 2017 at 12:39 Board Certified Radiologist. This report was verified electronically.
[2017-06-16] MEDS: ACETAMINOPHEN/HYDROcodone 325 MG/10 MG TAB PO PRN ×3 (13:42→22:48)
--- NOTE | 2017-06-16 14:46 | RADRPT ---
EXAM DATE/TIME: 06/15/2017 13:11 [facility] COMPARISON: No previous studies available for comparison. INDICATIONS : Patient presents with a acute subarachnoid hemorrhage secondary to ruptured anterior communicating ar kalpesh aneurysm. Patient has headache. Neurologically intact.. MEDICAL HISTORY : Arthritis Hypertension SURGICAL HISTORY : Tubal ligation Oral Surgery ENCOUNTER: Initial ACUITY: 1 day PAIN SCORE: 9/10 LOCATION: Headache FLUORO TIME: 46.0 minutes IMAGE SERIES: 24 ACCESS SITE: Right Femoral artery CONTRAST: 130 cc Visipaque (iodixanol) DEVICE(S): 1.) Left Anterior communicating artery 3mm x 8cm Orbit galaxy complex xtrasoft embolic coil(s) 2.) Left Anterior communicating artery 2.5mm x 3.5cm Orbit galaxy complex xtrasoft embolic coil(s) 3.) Right common femoral artery 6fr Angio-Seal TECH NOTE: Anesthesia assisted during procedure.SELINA SANTANA MR#:[id number] DOB03/ Exam Dt/Desc: May 292016ANGIOGRAM, CEREBRAL WO ARCH PROCEDURE : 1. Ultrasound-guided puncture of the access site. 2. Angiography of the access site prior to closure device. 3. Conscious sedation with continuous EKG and Oximetry monitoring. 4. Percutaneous closure of the access site. 5. Angiography of the aortic arch 6. Angiography of the left common carotid artery 7. angiography of the left internal carotid artery 8. Angiography of the left anterior cerebral artery 9. Coil embolization of an anterior communicating artery aneurysm The risks, benefits and alternatives to the procedure were explained and verbal and written consent w as obtained from the patient as well as the patient's . I reviewed the patient's CTA. The site was prepped in sterile fashion. Full sterile technique was used, including cap, mask, sterile glove s and gown and a large sterile sheet. Hand hygiene and 2% chlorhexidine and/or betadine/alcohol prep was utilized per protocol for cutaneous antisepsis. The skin and subcutaneous tissues were infiltra blanca with local anesthetic solution. With ultrasound and fluoroscopic guidance the right common femoral artery was punctured and a vascula r sheath was placed. Angiography of the common femoral artery was performed for evaluation prior to percutaneous closure device placement. ? The left common carotid artery was selected this was quite difficult given the patient's anatomy. A n arch aortogram was performed to highlight the anatomy and a better fashion. Initially the left inte rnal carotid artery was selected and a cerebral antegrade performed from this level. These diagnostic images were reviewed and reveal a multilobulated 5 x 4 x 3 mm saccular aneurysm arising from the ant erior communicating artery. The dome to neck ratio is 1.3-1.5. No acute hemorrhage seen. Coil emboliz ation was felt most prudent. A neuron guide catheter was positioned in the left internal carotid lisandro ry proximal to 2 tight loops just inferior to the skull base. A Prowler select microcatheter in conju nction with an agility soft wire were utilized to try and gain access to the aneurysm. We were unable to access further than that supraclinoid ICA as the tortuosity of the more proximal ICA generated di fficulty. A 7 [place] Rabbe sheath was utilized and positioned within the mid left common carotid lisandro ry. This allowed selection of the aneurysm with the microcatheter. Initially a 4 x 10 Galaxy extra so ft coil was utilized. This coil would not remain within the aneurysm as it kept displacing into the p arent vessel. This coil was removed. A 3 x 8 Galaxy extra soft coil was deployed without difficulty. A 2.5 x 3.5 Galaxy extra soft coil was then utilized. Good filling of the aneurysm is observed. Follo wu angiogram showed no residual flow within the aneurysm. Good flow through the parent vessel is vivian ntained. No significant vasospasm is observed involving the left ICA circulation. An Angio-Seal closu re device was utilized. General anesthesia was utilized. See the anesthesiology report separately. CONCLUSION: 1. Lobulated saccular aneurysm arising from the anterior communicating artery with successful coil em bolization. 2. No significant vasospasm seen on the left. 3. I spoke with Dr. Yen immediately following the procedure. Emile Walker Jr., MD on June 16, 2017 at 14:17 Board Certified Radiologist. This report was verified electronically.
--- NOTE | 2017-06-16 17:51 | HHI.CCPN ---
Subjective Remarks/Hospital Course 06/15: Acute SAH with a-com aneurysm. Colied 06/15. 06/16: BP control acceptable. Severe headache, but she gets somnolent after minimal analgesia. Some nausea and vomiting. Objective Vital Signs Date Time Temp Pulse Resp B/P Pulse Ox O2 Delivery O2 Flow Rate FiO2 06/16/17 07:00 96 Nasal Cannula 1.00 06/16/17 07:00 100 06/16/17 04:00 97.9 14 118/56 Intake and Output 06/15/17 06/15/17 06/16/17 08:00 16:00 00:00 Intake Total 2374 ml Output Total 710 ml Balance 1664 ml Result Diagram: 06/15/17 1127 06/16/17 0433 Objective Remarks Gen: Lethargic, middle age woman. Head: Atraumatic. Neck: Supple, airway widely patent. Lungs: Clear, no wheezes or crackles. Normal excursions. Heart: RRR, no m,r. No JVD. Abdomen: Soft, no guarding. BS active. Extremities: Warm, well perfused. Neuro: O X 3, very lethargic but arouses easily to questions and voice. Moves 4 limbs to command with 5/5 strength. DORYS, EOMs intact. Tracks with eyes, DORYS. A/P Problem List: (1) SAH (subarachnoid hemorrhage) ICD Code: I60.9 Status: Acute (2) Aneurysm of anterior communicating artery ICD Code: I67.1 Status: Acute Assessment and Plan Plan: 1. BP control < 160/90 with cardene prn. 2. Labetalol prn immediate control. 3. HOB elevated. 4. No chemical DVT prophylaxis. 5. SCDs. 6. NS iv at 50/hr. 7. Nimodipine 60 mg q4h. 8. Electrolyte protocol. 9. Scheduled neuro checks. 10. Protonix. Overall impression: Extensive SAH associated with a-com aneurysm. She is critically ill and may require intubation and mechanical ventilation. BP control acceptable. Large amount of blood, risk for vasospasm. Critical care 34 mins Eric Karimi MD Jun 16, 2017 17:51
[2017-06-17] VITALS (9 sets, daily range): BP systolic 132–157; BP diastolic 62–78; PULSE 59–70; RESP 13–21; TEMP 98.1–99.1; O2SAT 94–98
[2017-06-17] MEDS: ONDANSETRON HCL 4 MG/2 ML VIAL IV PRN (01:04)
[2017-06-17] MEDS: niMODipine 30 MG CAP PO SCH ×6 (01:31→21:44)
[2017-06-17] MEDS: CHLORHEXIDINE GLUCONATE 2 % 1 PACK (2 CLOTHS) TOP SCH (04:00)
[2017-06-17] MEDS: SODIUM CHLOR 0.9% 1000 ML INJ 1,000 ML IV SCH ×2 (04:57→20:16)
--- NOTE | 2017-06-17 08:11 | HHI.CCPN ---
Subjective Remarks/Hospital Course 06/15: Acute SAH with a-com aneurysm. Colied 06/15. 06/16: BP control acceptable. Severe headache, but she gets somnolent after minimal analgesia. Some nausea and vomiting. 06/17: BP control good. Mild permissive hypertension 150s. Persistent headache and anxiety. Patient requests nicoderm patch but I am concerned about promoting unnecessary vasospasm. Objective Vital Signs Date Time Temp Pulse Resp B/P Pulse Ox O2 Delivery O2 Flow Rate FiO2 06/17/17 07:00 68 06/17/17 07:00 98 Nasal Cannula 1.00 06/17/17 04:00 98.1 15 146/68 Intake and Output 06/16/17 06/16/17 06/16/17 07:59 15:59 23:59 Intake Total 902 ml 802 ml 702 ml Output Total 625 ml 475 ml 400 ml Balance 277 ml 327 ml 302 ml Result Diagram: 06/15/17 1127 06/16/17 0433 Objective Remarks Gen: Lethargic, middle age woman. Head: Atraumatic. Neck: Supple, airway widely patent. Lungs: Clear, no wheezes or crackles. Normal excursions. Heart: RRR, no m,r. No JVD. Abdomen: Soft, no guarding. BS active. Extremities: Warm, well perfused. Neuro: O X 3, remains very lethargic but arouses easily to questions and voice. Moves 4 limbs to command with 5/5 strength. DORYS, EOMs intact. Tracks with eyes , DORYS. A/P Problem List: (1) SAH (subarachnoid hemorrhage) ICD Code: I60.9 Status: Acute (2) Aneurysm of anterior communicating artery ICD Code: I67.1 Status: Acute (3) Encephalopathy acute ICD Code: G93.40 Status: Acute Assessment and Plan Plan: 1. BP control < 160/90 with cardene prn. 2. Labetalol prn immediate control. 3. HOB elevated. 4. No chemical DVT prophylaxis. 5. SCDs. 6. NS iv at 50/hr. 7. Nimodipine 60 mg q4h. 8. Electrolyte protocol. 9. Scheduled neuro checks. 10. Protonix. 11. Start daily transcranial dopplers. Overall impression: Extensive SAH associated with a-com aneurysm. She is critically ill and may require intubation and mechanical ventilation. BP control acceptable. Large amount of blood, elevated risk for vasospasm. Follow dopplers closely. Discussed at length with her sister at the bedside. Critical care 37 mins Eric Karimi MD Jun 17, 2017 08:11
[2017-06-17] MEDS: PANTOPRAZOLE SOD 40 MG DELAYED RELEASE TAB PO SCH (08:53)
[2017-06-17] MEDS: DOCUSATE SODIUM 50 MG/SENNA 8.6 MG TAB PO SCH ×2 (08:53→21:00)
[2017-06-17] MEDS: levETIRAcetam INJ 500 MG in SODIUM CHLORIDE 0.9% INJ 100 ML IV SCH ×2 (08:57→21:00)
--- NOTE | 2017-06-17 10:18 | RADRPT ---
EXAM DATE/TIME: 06/17/2017 08:11 [facility] COMPARISON: No previous studies available for comparison. INDICATIONS : Subarachnoid hemorrhage. MEDICAL HISTORY : Hypertension. Arthritis. Weakness. Subarachnoid hemorrhage. SURGICAL HISTORY : Tubal ligation. Aneurysm coil. ENCOUNTER: Initial ACUITY: 4-6 days PAIN SCORE: 2/10 LOCATION: Bilateral cranial Current Exam: Jun 17, 2017 [place] Ratio: Right: 2.2 Left: 2.1 Fernández Ratio: Right: UTO Left: 2.4 FINDINGS: Examination performed at bedside. Real-time ultrasound with the assistance of color and spectral Dop pler was utilized to evaluate the intracerebral circulation. Time-averaged maximal velocities are ca lculated in cm/s. CONCLUSION: 1. No evidence for significant vasospasm. Brown Schuler MD on June 17, 2017 at 10:07 Board Certified Radiologist. This report was verified electronically.
--- NOTE | 2017-06-17 16:34 | HHI.NSPN ---
(Pascual Flores) History Chief Complaint: Headache. Ruptured POLLO aneurysm, s/p coiling. (Pascual Flores) Interval History This 57-year-old right-handed female had the acute onset of severe headache early this morning and also complained of weakness in her legs, left more than right, along with paresthesias and subsequently became more lethargic. She was found on the floor by her with positive complaints of nausea. On arrival to the emergency room she was lethargic but responsive. CT scan of the head obtained reveals extensive diffuse subarachnoid hemorrhage involving the basal cisterns and also extending into the bilateral sylvian fissure and interhemispheric fissure and prepontine fissure along with suprasellar cistern. There is also mild hydrocephalus associated with this and slight dilation of the temporal horns bilaterally. 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 The patient is lethargic but does respond to verbal commands and follows simple instructions. 06/16/17: 5x4x3 mm ACOM aneurysm successfully treated with coil embolization on 06/15/17. No significant vasospasm seen involving the left intracranial vasculature per interventional radiology. Pt awakens to voice. Complains of headache all over. Has nausea and had episode of vomiting last night. Pt denies any paresthesias or weakness. She is lethargic and prefers her eyes closed, but awakens to voice. 06/17/17: Pt awake more alert this afternoon. Complains of headache all over. Nausea. Pt was up in chair earlier. Follows commands well. (Pascual Flores) Review of Systems General: Negative for: fever, chills, insomnia Cardiovascular: Negative for: chest pain Gastrointestinal: Negative for: nausea, vomitting, diarrhea, constipation ( Pascual Flores) Exam Results Vital Signs Date Time Temp Pulse Resp B/P Pulse Ox O2 Delivery O2 Flow Rate FiO2 06/17/17 12:00 99.1 59 14 157/76 98 06/17/17 07:00 Nasal Cannula 1.00 Intake and Output 06/16/17 06/16/17 06/17/17 08:00 16:00 00:00 Intake Total 902 ml 802 ml 702 ml Output Total 625 ml 475 ml 400 ml Balance 277 ml 327 ml 302 ml (Pascual Flores) Physical Examination Resp: CTA bilaterally Heart: NSR no murmurs Abd: Soft positive bs Skin: No cyanosis or erythema Muscle: Moves all 4 extremities, appears symmetric. Neuro: Pt awake more alert. Prefers eyes closed given her headache. She follows simple commands. Answers questions with simple yes/no response. Pupils 3mm bilaterally reactive bilaterally. Sensation intact to light touch in face and extremities. (Pascual Flores) Lab, Micro, Other Results Last Impressions Transcranial Doppler Study Complete 06/17/17 0000 Signed Impressions: Service Date/Time: May 08:11 - CONCLUSION: 1. No evidence for significant vasospasm. Brown Schuler MD Head CT 06/16/17 0800 Signed Impressions: Service Date/Time: Friday, June 16, 2017 12:10 - CONCLUSION: The amount of subarachnoid hemorrhage is stable from the previous study. Aneurysm coil in good position. Mild prominence of the ventricular system. Anant Cohen MD Neck CTA 06/15/17 1125 Signed Impressions: Service Date/Time: Thursday, June 15, 2017 12:10 - CONCLUSION: 1. No stenosis of either carotid artery. 2. No aneurysm seen. 3. Normal variants of the aortic arch. Pascual Sanderson MD Head CTA 06/15/17 0000 Signed Impressions: Service Date/Time: Thursday, June 15, 2017 12:10 - CONCLUSION: 5 x 4 x 3 mm saccular, bilobed ACOM aneurysm as detailed above. Emile Walker Jr., MD Cerebral Arteriogram 06/15/17 0000 Signed Impressions: Service Date/Time: Thursday, June 15, 2017 13:11 - CONCLUSION: 1. 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 2. No significant vasospasm seen on the left. 3. I spoke with Dr. Yen immediately following the procedure. Emile Walker Jr., MD 06/16/17 06/16/17 06/17/17 15:00 23:00 07:00 Intake Total 802 ml 702 ml 263 ml Output Total 475 ml 400 ml 320 ml Balance 327 ml 302 ml -57 ml IV Total 802 ml 702 ml 263 ml Output Urine Total 475 ml 400 ml 320 ml # Bowel Movements 0 0 0 (Pascual Flores) Medical Decision Making Impression and Plan A: 57 y/o FM with diffuse subarachnoid hemorrhage involving the basal cisterns as well as the interhemispheric fissure with a mild hydrocephalus from a ruptured anterior communicating artery aneurysm. s/p aneurysm coiling by radiology special procedures. 2. Hypertension. PLAN Continue with close neuro checks. Continue to get oob to chair. Continue to monitor vitals. (Pascual Flores) Attending Statement The exam, history, and the medical decision-making described in the above note were completed with the assistance of the mid-level provider. I reviewed and agree with the findings presented. I attest that I had a [id number] encounter with the patient on the same day, and personally performed and documented my assessment and findings in the medical record. Remains lethargic but easily arousable and follows commands and interacts for short time. Family states that she's had up in a chair and took a few steps today. Appetite remains poor and we'll try Ensure supplements. Agree with the transcranial Dopplers surveillance for vasospasm and permissive hypertension. Updated the and sister at bedside. (Raffy Yen MD) Pascual Flores Jun 17, 2017 16:34 Raffy Yen MD Jun 17, 2017 17:28
[2017-06-18] VITALS (15 sets, daily range): BP systolic 102–160; BP diastolic 65–105; PULSE 62–90; RESP 16–24; TEMP 98.1–98.4; O2SAT 98–100
[2017-06-18] MEDS: ACETAMINOPHEN 325 MG TAB PO PRN ×2 (00:15→04:55)
[2017-06-18] MEDS: niMODipine 30 MG CAP PO SCH ×7 (00:15→23:25)
[2017-06-18] MEDS: CHLORHEXIDINE GLUCONATE 2 % 1 PACK (2 CLOTHS) TOP SCH (04:55)
[2017-06-18 05:07] LABS: BICARBONATE 26.3 MEQ/L (21.0-32.0); MAGNESIUM 1.9 MG/DL (1.5-2.5)
[2017-06-18 05:11] LABS: POTASSIUM 2.6 MEQ/L (3.5-5.1)
[2017-06-18] MEDS ORDERED: POTASSIUM PHOSPHATE MONOBASIC 500 MG TAB PO PRN (05:30)
[2017-06-18] MEDS ORDERED: MAGNESIUM OXIDE 400 MG TAB PO PRN (05:30)
[2017-06-18] MEDS ORDERED: POTASSIUM CHLOR 20 MEQ PREMIX 100 ML IV PRN (05:30)
[2017-06-18] MEDS ORDERED: POTASSIUM CHLORIDE 20 MEQ CONTROLLED RELEASE TAB PO ONE (05:30)
[2017-06-18] MEDS ORDERED: POTASSIUM PHOSPHATE INJ 30 MMOL in SODIUM CHLOR 0.9% 250 ML INJ 250 ML IV PRN (05:30)
[2017-06-18] MEDS ORDERED: POTASSIUM PHOSPHATE MONOBASIC 500 MG TAB PO/TUBE PRN (05:30)
[2017-06-18] MEDS ORDERED: MAGNESIUM SULFATE INJ 4 GM in SODIUM CHLORIDE 0.9% INJ 92 ML IV PRN (05:30)
[2017-06-18] MEDS: DOCUSATE SODIUM 50 MG/SENNA 8.6 MG TAB PO SCH ×2 (09:00→20:29)
--- NOTE | 2017-06-18 09:10 | RADRPT ---
EXAM DATE/TIME: 06/18/2017 07:57 [facility] COMPARISON: CT BRAIN W/O CONTRAST, June 15, 2017, 11:02. US TRANSCRANIAL DOPPLER COMPLETE, June 17, 2017, 8:11. INDICATIONS : Subarachnoid hemorrhage. MEDICAL HISTORY : Hypertension. Arthritis. Weakness. Subarachnoid hemorrhage. SURGICAL HISTORY : Tubal ligation. Aneurysm coil. ENCOUNTER: Subsequent ACUITY: 2 days PAIN SCORE: 2/10 LOCATION: Bilateral cranial Current Exam: Jun 18, 2017 Lindegaard Ratio: Right: 3.3 Left: 3.1 Fernández Ratio: Right: UTO Left: 3.8 Previous Exam: Jun 17, 2017 Lindegaard Ratio: Right: 2.2 Left: 2.1 Fernández Ratio: Right: UTO Left: 2.4 FINDINGS: Examination performed at bedside. Real-time ultrasound with the assistance of color and spectral Dop pler was utilized to evaluate the intracerebral circulation. Time-averaged maximal velocities are ca lculated in cm/s. The Lindegard ratios are mildly elevated bilaterally but the mean flow velocities remain within dru l limits. CONCLUSION: There are no findings to indicate vasospasm. The mildly elevated Lindegard ratios are likely related to physiologic factors. Silas Ortez MD on June 18, 2017 at 9:04 Board Certified Radiologist. This report was verified electronically.
[2017-06-18] MEDS: SODIUM CHLOR 0.9% 1000 ML INJ 1,000 ML IV SCH ×2 (09:36→22:56)
[2017-06-18] MEDS: PANTOPRAZOLE SOD 40 MG DELAYED RELEASE TAB PO SCH (09:59)
[2017-06-18] MEDS: levETIRAcetam INJ 500 MG in SODIUM CHLORIDE 0.9% INJ 100 ML IV SCH ×2 (10:00→20:29)
[2017-06-18] MEDS ORDERED: LORazepam 2 MG/ML VIAL ONE (10:32)
--- NOTE | 2017-06-18 10:44 | HHI.CCPN ---
Subjective Remarks/Hospital Course 06/15: Acute SAH with a-com aneurysm. Coiled 06/15. 06/16: BP control acceptable. Severe headache, but she gets somnolent after minimal analgesia. Some nausea and vomiting. 06/17: BP control good. Mild permissive hypertension 150s. Persistent headache and anxiety. Patient requests nicoderm patch but I am concerned about promoting unnecessary vasospasm. 06/18: Sudden onset altered mental status. Patient complaining of head ache and turning in bed, somewhat decreased level of consciousness. Transcranial Doppler did not show vasospasm today morning. Continue permissive hypertension. Stat CT of the head and CT angiogram ordered and discussed with interventional radiology Dr. Sanderson. (Dr. Yen in [place]) Objective Vital Signs Date Time Temp Pulse Resp B/P Pulse Ox O2 Delivery O2 Flow Rate FiO2 06/18/17 04:00 98.1 64 16 160/105 98 06/17/17 19:00 Room Air 06/17/17 07:00 1.00 Intake and Output 06/17/17 06/17/17 06/17/17 07:59 15:59 23:59 Intake Total 263 ml 780 ml 396 ml Output Total 320 ml 950 ml 975 ml Balance -57 ml -170 ml -579 ml Result Diagram: 06/15/17 1127 06/18/17 0353 Objective Remarks Gen: Lethargic, middle age woman. Now agitated, c/o head ache Head: Atraumatic. Neck: Supple, airway widely patent. Lungs: Clear, no wheezes or crackles. Normal excursions. Heart: RRR, no m,r. No JVD. Abdomen: Soft, no guarding. BS active. Extremities: Warm, well perfused. Neuro: Sudden onset change in mental status, she became altered turning in bed more lethargic but still following commands. Moves 4 limbs to command with 5/5 strength. DORYS, Tracks with eyes. 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 Discussed with interventional radiologist Dr. Sanderson. (Dr. Yen in [place]) - Permissive hypertension with Levophed to keep SBP 160-180 - NS iv at 50/hr, increase to 150 ml per hour - Nimodipine 60 mg q4h. - HOB elevated. - Ativan when necessary and Precedex to facilitate CT imaging - No chemical DVT prophylaxis. - SCDs. - Electrolyte protocol. - Scheduled neuro checks. - Protonix. -Continue daily t ranscranial dopplers. Overall impression: Extensive SAH associated with a-com aneurysm. She is critically ill, now with acutely altered mentation suspicious for vasospasm. She may require intubation and mechanical ventilation. Large amount of blood, elevated risk for vasospasm. Follow dopplers closely, CT head, CTA ordered. Discussed at length with family at the bedside. Critical care 45 mins Tona Rosen MD Jun 18, 2017 10:44
[2017-06-18] MEDS ORDERED: DEXMEDETOMIDINE INJ 200 MCG in SODIUM CHLORIDE 0.9% INJ 50 ML IV SCH (10:45)
--- NOTE | 2017-06-18 11:32 | RADRPT ---
EXAM DATE/TIME: 06/18/2017 10:57 [facility] COMPARISON: CT BRAIN W/O CONTRAST, June 16, 2017, 12:10. INDICATIONS : Subarachnoid hematoma. RADIATION DOSE: 56.35 CTDIvol (mGy) MEDICAL HISTORY : Cardiovascular disease. Hypertension. SURGICAL HISTORY : None. ENCOUNTER: Initial ACUITY: 1 day PAIN SCALE: Non-responsive LOCATION: cranial TECHNIQUE: Multiple contiguous axial images were obtained of the head. Using automated exposure control and adj ustment of the mA and/or kV according to patient size, radiation dose was kept as low as reasonably a chievable to obtain optimal diagnostic quality images. DICOM format image data is available electro nically for review and comparison. FINDINGS: CEREBRUM: Subarachnoid hemorrhage again noted not significantly changed. Patient is status post coiling of an a neurysm. Ventricles are patent. There is some vasogenic edema in the left frontal lobe with some mild mass effect but no significant midline shift. This is adjacent to some intraparenchymal hemorrhage. No evidence of midline shift, mass lesion or acute infarction. POSTERIOR FOSSA: The cerebellum and brainstem are intact. The 4th ventricle is midline. The cerebellopontine angle i s unremarkable. EXTRACRANIAL: The visualized portion of the orbits is intact. SKULL: The calvaria is intact. No evidence of skull fracture. CONCLUSION: 1. Subarachnoid hemorrhage is stable. 2. There is mild vasogenic edema in the left frontal lobe with mass effect but no significant midline shift. This is adjacent to some intraparenchymal hemorrhage. This is new from previous study. Pascual Sanderson MD on June 18, 2017 at 11:25 Board Certified Radiologist. This report was verified electronically.
[2017-06-18] MEDS ORDERED: MIDAZOLAM HCL 2 MG/2 ML VIAL IV PUSH ONE (12:15)
[2017-06-18] MEDS ORDERED: ROCURONIUM INJ 50 MG/5 ML VIAL IV ONE (12:15)
[2017-06-18] MEDS ORDERED: ETOMIDATE 20 MG/10 ML VIAL IV PUSH ONE (12:15)
[2017-06-18] MEDS ORDERED: fentaNYL CITRATE 250 MCG/5 ML AMP IV PUSH ONE (12:15)
[2017-06-18] MEDS ORDERED: PROPOFOL 1000 MG/100 ML INJ 100 ML ONE ×3 (12:51→23:04)
[2017-06-18] MEDS: MORPHINE SULFATE 4 MG/ML INJ IV PRN (13:00)
[2017-06-18] MEDS: ONDANSETRON HCL 4 MG/2 ML VIAL IV PRN (13:00)
[2017-06-18] MEDS ORDERED: MANNITOL 12.5 GM/50 ML VIAL IV ONE (13:30)
[2017-06-18 13:57] LABS: MAGNESIUM 1.8 MG/DL (1.5-2.5)
--- NOTE | 2017-06-18 13:59 | PD.PROCEDR ---
Procedure Note Procedure After the risks and benefits were discussed the following procedure was performed: INTUBATION: The patient was put in optimal position for the procedure. Rapid sequence intubation was initiated by me using 20 milligrams of etomidate IV and 5 milligrams of Versed IV, 100 mcg IV Fentanyl and 50 mg IV Rocuronium. DL with Mac 3 blade, Grade 1 view, single attempt. The patient was intubated with a 7.5 cuffed endotracheal tube. Tube placement was confirmed by visualization of the tube and balloon passing through the cords, capnometry and subsequent chest x-ray. Breath sounds were equal and well aerated bilaterally postintubation. No breath sounds over stomach. Patient tolerated procedure well. Tona Rosen MD Jun 18, 2017 13:59
--- NOTE | 2017-06-18 13:59 | PD.PROCEDR ---
Central Line Procedure REASON FOR PROCEDURE Central venous access PROCEDURE PERFORMED Central line placement: US guided RIJ CONSENT Informed consent for procedure was obtained. The risks and benefits of the procedure were discussed to include but limited to bleeding, clot formation, infection, and even . ANESTHESIA Local injection of 1% Lidocaine DESCRIPTION OF THE PROCEDURE The patient was placed in supine, mild Trendelenburg position. The area was exposed and cleansed with ChloraPrep, times two. Large sterile drape was used to cover the patient, with the site exposed, under sterile conditions including cap, face mask, sterile gown, and sterile gloves. On single attempt, the introducer needle was inserted with negative pressure in syringe and venous flash was obtained. The guide wire was then advanced without any restriction and the needle was removed. The dilator was used without any complications. Using Seldinger technique the 20 CM 7F triple Lumen catheter was advanced over the guide wire to a depth of 16 centimeters. The guide wire was removed. All ports were aspirated with dark venous blood return and flushed easily with sterile saline. All ports were capped. Antibiotic disc was placed around central line at puncture site. The central line was secured to the skin with two interrupted 2.0 silk sutures. The area was bandaged with sterile see- through central line bandage. RADIOLOGICAL DATA Ultrasound guidance was used to locate RIJ COMPLICATIONS: No apparent complications ESTIMATED BLOOD LOSS: Less than 1 cc. Tona Rosen MD Jun 18, 2017 13:59
[2017-06-18 14:09] LABS: POTASSIUM 2.4 MEQ/L (3.5-5.1)
--- NOTE | 2017-06-18 14:41 | PD.OP ---
Operative Report Date of Surgery: Jun 18, 2017 Preoperative Diagnosis: Hydrocephalus from Subarachnoid hemorrhage; ruptured anterior communicating artery aneurysm Postoperative Diagnosis: Same Procedure: Right frontal twist drill hole ventriculostomy placement Anesthesia: Local with sedation Surgeon: Raffy Yen M.D. Guide Changer(s): None Operation and Findings: Informed consent was obtained from the patient's . Following continuation of Diprivan drip and the administration of morphine grams IV with the oxygen saturation and hemodynamic monitoring in the intensive care unit, the right frontal region was shaved and the prep with chlor prep and sterilely draped. Using landmarks of 11 cm behind the nasion and 3 cm to the right of the midline, a 1 cm scalp incision was made after infiltrating with 1% lidocaine with epinephrine solution. With a handheld drill a twist drill hole was made in the underlying dura penetrated with a blunt probe. The bactiseal ventriculostomy catheter was then passed into the lateral ventricle at a depth of 7 cm clear CSF encountered with an opening pressure around 25 cm H20. After drainage of CSF the pressures were down to 10 cm H20. The distal end of the ventriculostomy was then tunneled under the scalp with a trocar and secured to the exit site with a 3-0 nylon thigh and connected to a drainage bag. Scalp incision site was approximated with 3-0 nylon interrupted stitches A sterile dressing was applied. There were no complications and blood loss was less than 5 cc. Raffy Yen MD Jun 18, 2017 14:41
--- NOTE | 2017-06-18 14:44 | RADRPT ---
EXAM DATE/TIME: 06/18/2017 13:05 [facility] COMPARISON: No previous studies available for comparison. INDICATIONS : Central line and ET tube placement. MEDICAL HISTORY : Cardiovascular disease. Hypertension SURGICAL HISTORY : None. ENCOUNTER: Subsequent ACUITY: 3 days PAIN SCORE: Non-responsive. LOCATION: Bilateral chest FINDINGS: A single portable frontal view of the chest shows an endotracheal tube with the tip 5 cm proximal to the juarez. Nasogastric tube is coiled within the fundus of the stomach. Right internal jugular vein central venous line with the tip at the cavoatrial junction. No pneumothorax, effusion, or infiltrate . Heart is normal in size. Old trauma involving the right clavicle. CONCLUSION: Lines and tubes as detailed above without pneumothorax or infiltrate. Emile Walker Jr., MD on June 18, 2017 at 14:35 Board Certified Radiologist. This report was verified electronically.
[2017-06-18] MEDS ORDERED: POTASSIUM CHLORIDE 25 MEQ EFFERVESCENT TAB PO ONE (15:00)
[2017-06-18] MEDS: POTASSIUM CHLOR 40 MEQ PREMIX 100 ML IV SCH ×2 (15:00→17:18)
[2017-06-18 16:54] LABS: BLOOD GAS BASE EXCESS 1.7 mmol/L (-2-2); BLOOD GAS CARBOXYHEMOGLOBIN 1.2 % (0-4); BLOOD GAS HCO3 24 mmol/L (22-26); BLOOD GAS METHEMOGLOBIN 0.9 % (0-2); BLOOD GAS O2 HGB SATURATION 98 % (90-100); BLOOD GAS OXYGEN CONTENT 14.3 Vol % (12.0-20.0); BLOOD GAS PCO2 29 mmHg (38-42); BLOOD GAS PO2 193 mmHg (61-120); BLOOD GAS TOTAL HGB 10.1 G/DL (12.0-16.0); TEMP CORR TO 98.6
[2017-06-18] MEDS: 3% SALINE INJ 500 ML IV SCH (17:00)
[2017-06-18 17:05] LABS: CRITICAL VALUE YES; OXYGEN DEVICE VENTILATOR
[2017-06-18 17:06] LABS: DRAW SITE ART LINE; FIO2 40 %; STAT NO; ULNAR PULSE PRESENT; VENT SETTINGS A/C18/500/PEEP5
--- NOTE | 2017-06-18 17:09 | HHI.NSPN ---
(Pascual Flores) History Chief Complaint: Headache. Ruptured POLLO aneurysm, s/p coiling. (Pascual Flores) Interval History This 57-year-old right-handed female had the acute onset of severe headache early this morning and also complained of weakness in her legs, left more than right, along with paresthesias and subsequently became more lethargic. She was found on the floor by her with positive complaints of nausea. On arrival to the emergency room she was lethargic but responsive. CT scan of the head obtained reveals extensive diffuse subarachnoid hemorrhage involving the basal cisterns and also extending into the bilateral sylvian fissure and interhemispheric fissure and prepontine fissure along with suprasellar cistern. There is also mild hydrocephalus associated with this and slight dilation of the temporal horns bilaterally. 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 The patient is lethargic but does respond to verbal commands and follows simple instructions. 06/16/17: 5x4x3 mm ACOM aneurysm successfully treated with coil embolization on 06/15/17. No significant vasospasm seen involving the left intracranial vasculature per interventional radiology. Pt awakens to voice. Complains of headache all over. Has nausea and had episode of vomiting last night. Pt denies any paresthesias or weakness. She is lethargic and prefers her eyes closed, but awakens to voice. 06/17/17: Pt awake more alert this afternoon. Complains of headache all over. Nausea. Pt was up in chair earlier. Follows commands well. 06/18/17: Pt currently sedated for a STAT CT head that was ordered by critical care. Discussed with critical care and pt was acting restless and more confused but was following commands and gripping hands symmetrically. A follow up CT was obtained which revealed a new left frontal intraparenchymal hemorrhage with surrounding edema. Critical care is going to intubate pt for airway control and Dr. Yen is going to place a ventriculostomy drain. (Pascual Flores) System Review Comments Not able to obtain given clinical condition. (Pascual Flores) Exam Results Vital Signs Date Time Temp Pulse Resp B/P Pulse Ox O2 Delivery O2 Flow Rate FiO2 06/18/17 14:32 100 40 06/18/17 04:00 98.1 64 16 160/105 06/17/17 19:00 Room Air 06/17/17 07:00 1.00 Intake and Output 06/17/17 06/17/17 06/18/17 08:00 16:00 00:00 Intake Total 263 ml 780 ml 396 ml Output Total 320 ml 950 ml 975 ml Balance -57 ml -170 ml -579 ml (Pascual Flores) Physical Examination Resp: CTA bilaterally Heart: NSR no murmurs Abd: Soft positive bs Skin: No cyanosis or erythema Muscle: Not following currently but was sedated for CT head. Neuro: Pt sedated for STAT CT so currently not following commands. Pupils 3mm bilaterally. Reactive bilaterally. Reportedly prior to being sedated she was somewhat agitated and confused prompting a stat CT. She was following commands with symmetric manager camp per critical care. (Pascual Flores) Lab, Micro, Other Results Last Impressions Transcranial Doppler Study Complete 06/18/17 0000 Signed Impressions: Service Date/Time: Sunday, June 18, 2017 07:57 - CONCLUSION: There are no findings to indicate vasospasm. The mildly elevated Lindegard ratios are likely related to physiologic factors. Silas Ortez MD Head CT 06/18/17 0000 Signed Impressions: Service Date/Time: Sunday, June 18, 2017 10:57 - CONCLUSION: 1. Subarachnoid hemorrhage is stable. 2. There is mild vasogenic edema in the left frontal lobe with mass effect but no significant midline shift. This is adjacent to some intraparenchymal hemorrhage. This is new from previous study. Pascual Sanderson MD Chest X-Ray 06/18/17 0000 Signed Impressions: Service Date/Time: Sunday, June 18, 2017 13:05 - CONCLUSION: Lines and tubes as detailed above without pneumothorax or infiltrate. Emile Walker Jr., MD Neck CTA 06/15/17 1125 Signed Impressions: Service Date/Time: Thursday, June 15, 2017 12:10 - CONCLUSION: 1. No stenosis of either carotid artery. 2. No aneurysm seen. 3. Normal variants of the aortic arch. Pascual Sanderosn MD Head CTA 06/15/17 0000 Signed Impressions: Service Date/Time: Thursday, June 15, 2017 12:10 - CONCLUSION: 5 x 4 x 3 mm saccular, bilobed ACOM aneurysm as detailed above. Emile Walker Jr., MD Cerebral Arteriogram 06/15/17 0000 Signed Impressions: Service Date/Time: Thursday, June 15, 2017 13:11 - CONCLUSION: 1. 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 2. No significant vasospasm seen on the left. 3. I spoke with Dr. Yen immediately following the procedure. Emile Walker Jr., MD 06/17/17 06/17/17 06/18/17 15:00 23:00 07:00 Intake Total 780 ml 396 ml 661 ml Output Total 950 ml 975 ml 1300 ml Balance -170 ml -579 ml -639 ml Intake Oral 200 ml 200 ml IV Total 580 ml 396 ml 461 ml Output Urine Total 950 ml 975 ml 1300 ml # Bowel Movements 0 0 Laboratory Tests Test 06/18/17 06/18/17 03:53 13:30 Sodium Level 133 MEQ/L 133 MEQ/L Potassium Level 2.6 MEQ/L 2.4 MEQ/L Chloride Level 96 MEQ/L Carbon Dioxide Level 26.3 MEQ/L Anion Gap 11 MEQ/L Blood Urea Nitrogen 9 MG/DL Creatinine 0.45 MG/DL Estimat Glomerular Filtration 143 ML/MIN Rate Random Glucose 124 MG/DL Calcium Level 8.6 MG/DL Magnesium Level 1.9 MG/DL 1.8 MG/DL Serum Osmolality 272 MOSM/KG (Pascual Flores) Medical Decision Making Impression and Plan A: 57 y/o FM with diffuse subarachnoid hemorrhage involving the basal cisterns as well as the interhemispheric fissure with a mild hydrocephalus from a ruptured anterior communicating artery aneurysm. s/p aneurysm coiling by radiology special procedures. 2. Hypertension. 3. New left frontal intraparenchymal hemorrhage with surrounding edema PLAN Dr. Yen is going to place a ventriculostomy drain for ICP monitoring and CSF drainage. Continue with close neuro checks. Continue to monitor vitals. (Pascual Flores) Attending Statement The exam, history, and the medical decision-making described in the above note were completed with the assistance of the mid-level provider. I reviewed and agree with the findings presented. I attest that I had a [id number] encounter with the patient on the same day, and personally performed and documented my assessment and findings in the medical record. Patient found to be more lethargic requiring intubation for airway control. Follow-up CT scan of the head with moderate hydrocephalus and extensive subarachnoid hemorrhage along with a left frontal hemorrhage which is also seen on initial presentation but with surrounding edema. Transcranial Doppler studies did not indicate vasospasm. Ventriculostomy placed to treat the hydrocephalus and we'll continue with ICP management as well as prophylactic vasospasm treatment with permissive hypertension. Discussed with the optical instrument assembler Dr. Rosen. Updated the and family. (Raffy Yen MD) Pascual Flores Jun 18, 2017 17:09 Raffy Yen MD Jun 18, 2017 19:23
[2017-06-18] MEDS: NOREPINEPHRINE-DEXTROSE DRIP 250 ML IV SCH (17:29)
[2017-06-18] MEDS: NOREPINEPHRINE INJ 4 MG in SODIUM CHLOR 0.9% 250 ML INJ 246 ML IV SCH (22:25)
[2017-06-18] MEDS: MIDAZOLAM 100 MG/ML INJ 100 ML IV SCH (22:25)
[2017-06-18] MEDS: VASOPRESSIN INJ 40 UNITS in DEXTROSE 5% IN WATER 100ML INJ 98 ML IV SCH ×2 (22:55)
[2017-06-19] VITALS (18 sets, daily range): BP systolic 130–183; BP diastolic 65–113; PULSE 65–98; RESP 14; TEMP 98–100.4; O2SAT 100
[2017-06-19] MEDS: NOREPINEPHRINE INJ 4 MG in SODIUM CHLOR 0.9% 250 ML INJ 246 ML IV SCH ×3 (00:18→05:54)
[2017-06-19] MEDS ORDERED: IOHEXOL 350 MG/ML 10 ML VIAL (for RAD DIAG) IV ONE (00:55)
--- NOTE | 2017-06-19 01:14 | RADRPT ---
EXAM DATE/TIME: 06/19/2017 00:44 [facility] COMPARISON: CTA BRAIN W 3D RECON, June 15, 2017, 12:10. INDICATIONS : Abnormal CT, vasogenic edema. Evaluate for vasospasm. IV CONTRAST: 75 cc Omnipaque 350 (iohexol) IV RADIATION DOSE: 18.99 CTDIvol (mGy) MEDICAL HISTORY : Hypertension. SURGICAL HISTORY : None. ENCOUNTER: Initial ACUITY: 1 day PAIN SCALE: Non-responsive LOCATION: cranial TECHNIQUE: Volumetric scanning was performed using a multi-row detector CT scanner. The data was post processed with a variety of visualization algorithms including full volume maximum intensity projection, multi -planar sliding thin slab reformation, curved planar reformation, and surface rendering techniques. Using automated exposure control and adjustment of the mA and/or kV according to patient size, radiat ion dose was kept as low as reasonably achievable to obtain optimal diagnostic quality images. DICO M format image data is available electronically for review and comparison. FINDINGS: There has been interval coiling of an ACOMM aneurysm. 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 A stable bulbous configuration of the basilar tip is again note d. There is good preservation of flow in the anterior and middle cerebral vessels bilaterally with no evidence of major vessel occlusion or stenosis. No evidence of vasospasm. No other aneurysms identif ied. No vascular malformation. CONCLUSION: Interval ACOMM aneurysm coiling with satisfactory appearance as above. Silas Mtz MD on June 19, 2017 at 1:05 Board Certified Radiologist. This report was verified electronically.
[2017-06-19] MEDS: niMODipine 30 MG CAP PO SCH ×5 (03:32→20:16)
[2017-06-19] MEDS: PROPOFOL 1000 MG/100 ML IV SCH (03:33)
[2017-06-19] MEDS: CHLORHEXIDINE GLUCONATE 2 % 1 PACK (2 CLOTHS) TOP SCH (04:00)
[2017-06-19] MEDS: 3% SALINE INJ 500 ML IV SCH (04:17)
[2017-06-19 06:01] LABS: BLOOD GAS BASE EXCESS -2.4 mmol/L (-2-2); BLOOD GAS HCO3 22 mmol/L (22-26); BLOOD GAS O2 HGB SATURATION 97 % (90-100); BLOOD GAS PCO2 34 mmHg (38-42); BLOOD GAS PO2 168 mmHg (61-120); BLOOD GAS TOTAL HGB 9.2 G/DL (12.0-16.0); TEMP CORR TO 98.6
[2017-06-19 06:02] LABS: CRITICAL VALUE NO; FIO2 40 %; OXYGEN DEVICE VENTILATOR; VENT SETTINGS AC14/450/PEEP5
[2017-06-19 06:03] LABS: DRAW SITE ART LINE; STAT NO; ULNAR PULSE PRESENT
[2017-06-19 06:16] LABS: AUTOMATED NEUTROPHIL # 13.7 TH/MM3 (1.8-7.7); BASOPHIL % 0.2 % (0.0-2.0); EOSINOPHIL % 0.1 % (0.0-4.0); HEMATOCRIT 27.9 % (35.0-46.0); HEMO FLAGS DIFF FINAL; LYMPH % 11.4 % (9.0-44.0); MEAN CELL VOLUME 92.6 FL (80.0-100.0); MEAN CORPUSCULAR HEMOGLOBIN 31.8 PG (27.0-34.0); MEAN CORPUSCULAR HGB CONC 34.3 % (32.0-36.0); MONO % 9.1 % (0.0-8.0); NEUT % 79.2 % (16.0-70.0); PLATELET COUNT 248 TH/MM3 (150-450); RED BLOOD COUNT 3.01 MIL/MM3 (4.00-5.30); RED CELL DISTRIBUTION WIDTH 13.7 % (11.6-17.2); WHITE BLOOD COUNT 17.3 TH/MM3 (4.0-11.0)
[2017-06-19 06:50] LABS: BICARBONATE 22.1 MEQ/L (21.0-32.0); POTASSIUM 3.4 MEQ/L (3.5-5.1)
[2017-06-19] MEDS: DOCUSATE SODIUM 50 MG/SENNA 8.6 MG TAB PO SCH ×2 (09:00→20:16)
[2017-06-19] MEDS: PANTOPRAZOLE SOD 40 MG DELAYED RELEASE TAB PO SCH (09:09)
[2017-06-19] MEDS: POTASSIUM CHLOR 40 MEQ PREMIX 100 ML IV PRN (09:09)
[2017-06-19] MEDS: levETIRAcetam INJ 500 MG in SODIUM CHLORIDE 0.9% INJ 100 ML IV SCH ×2 (09:09→20:16)
--- NOTE | 2017-06-19 09:48 | RADRPT ---
EXAM DATE/TIME: 06/19/2017 07:26 [facility] COMPARISON: CT BRAIN W/O CONTRAST, June 18, 2017, 10:57. INDICATIONS : Subarachnoid hemorrhage. MEDICAL HISTORY : Arthritis. Hypertension. Weakness. Subarachnoid hemorrhage. SURGICAL HISTORY : Tubal ligation. Aneurysm coil. ENCOUNTER: Subsequent ACUITY: 3 days PAIN SCORE: Nonresponsive. LOCATION: Bilateral cranial Current Exam: Jun 19, 2017 Lindegaard Ratio: Right: 1.5 Left: 3.1 Fernández Ratio: Right: 1.1 Left: 6.2 Previous Exam: Jun 18, 2017 [place]ard Ratio: Right: 3.3 Left: 3.1 Fernández Ratio: Right: UTO Left: 3.8 FINDINGS: The degree of spasm has increased on the left side since the prior study from one day ago and the rig ht side has decreased. CONCLUSION: Increase in the degree of vasospasm on the left and decrease in degree of vasospasm on the right sinc e the prior exam from one day ago. Sascha Montez MD on June 19, 2017 at 9:43 Board Certified Radiologist. This report was verified electronically.
--- NOTE | 2017-06-19 10:02 | HHI.CCPN ---
Subjective Remarks/Hospital Course 06/15: Acute SAH with a-com aneurysm. Coiled 06/15. 06/16: BP control acceptable. Severe headache, but she gets somnolent after minimal analgesia. Some nausea and vomiting. 06/17: BP control good. Mild permissive hypertension 150s. Persistent headache and anxiety. Patient requests nicoderm patch but I am concerned about promoting unnecessary vasospasm. 06/18: Sudden onset altered mental status. Patient complaining of head ache and turning in bed, somewhat decreased level of consciousness. Transcranial Doppler did not show vasospasm today morning. Continue permissive hypertension. Stat CT of the head and CT angiogram ordered and discussed with interventional radiology Dr. Sanderson. (Dr. Yen in [place]) 06/19: Blood pressure in good range.TCDs today. Start TFs. Objective Vital Signs Date Time Temp Pulse Resp B/P Pulse Ox O2 Delivery O2 Flow Rate FiO2 06/19/17 08:21 100 40 06/19/17 07:00 Mechanical Ventilator 06/19/17 07:00 75 06/19/17 04:00 98.0 14 145/67 134/68 06/17/17 07:00 1.00 Intake and Output 06/18/17 06/18/17 06/19/17 08:00 16:00 00:00 Intake Total 661 ml 1297 ml Output Total 1300 ml 2340 ml Balance -639 ml -1043 ml Result Diagram: 06/19/17 0548 06/19/17 0548 Other Results Laboratory Tests Test 06/18/17 06/19/17 16:36 05:49 Blood Gas Puncture Site ART LINE ART LINE Blood Gas Patient Temperature 98.6 98.6 Blood Gas HCO3 24 mmol/L 22 mmol/L (22-26) (22-26) Blood Gas Base Excess 1.7 mmol/L -2.4 mmol/L (-2-2) (-2-2) Blood Gas Oxygen Saturation 98 % (90-100) 97 % (90-100) Arterial Blood pH 7.53 7.41 (7.380-7.420) (7.380-7.420) Arterial Blood Partial 29 mmHg (38-42) 34 mmHg (38-42) Pressure CO2 Arterial Blood Partial 193 mmHg 168 mmHg Pressure O2 (61-120) (61-120) Arterial Blood Oxygen Content 14.3 Vol % 13.0 Vol % (12.0-20.0) (12.0-20.0) Arterial Blood 1.2 % (0-4) 1.0 % (0-4) Carboxyhemoglobin Arterial Blood Methemoglobin 0.9 % (0-2) 1.0 % (0-2) Blood Gas Hemoglobin 10.1 G/DL 9.2 G/DL (12.0-16.0) (12.0-16.0) Oxygen Delivery Device VENTILATOR VENTILATOR Blood Gas Ventilator Setting A/C18/500/PEEP5 AC14/450/PEEP5 Blood Gas Inspired Oxygen 40 % 40 % Objective Remarks Gen: Sedated, ventilated, middle age woman. Head: Atraumatic. Neck: Supple, orally intubated. Lungs: Clear, no wheezes or crackles. Normal excursions. Heart: RRR, no m,r. No JVD. Abdomen: Soft, nondistended, no guarding. BS active. Extremities: Warm, well perfused. No edema. Neuro: Sudden onset change in mental status 06/18. CT head concerning for left frontal parenchymal bleed with vasogenic edema. Requiring intubation and mechanical ventilation. She is critically ill, requiring continuous re- assessment and adjustment of ventilator, vasopressors, sedation, neuro exam. 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 Discussed with interventional radiologist Dr. Sanderson. (Dr. Yen in [place]) - Permissive hypertension with Levophed to keep SBP 160-180 - NS iv at 50/hr, increase to 150 ml per hour - Nimodipine 60 mg q4h. - HOB elevated. - Ativan when necessary and Precedex to facilitate CT imaging - No chemical DVT prophylaxis. - SCDs. - Electrolyte protocol. - Scheduled neuro checks. - Protonix. -Continue daily t ranscranial dopplers. Overall impression: Extensive SAH associated with a-com aneurysm. She is critically ill, now with acutely altered mentation suspicious for vasospasm. She may require intubation and mechanical ventilation. Large amount of blood, elevated risk for vasospasm. Follow dopplers closely, CT head, CTA ordered. Discussed at length with family at the bedside. Critical care 45 mins Eric Karimi MD Jun 19, 2017 10:02
[2017-06-19] MEDS: BENEPROTEIN POWDER 1 PACK G-TUBE SCH ×2 (12:13→18:00)
[2017-06-19] MEDS: SODIUM CHLOR 0.9% 1000 ML INJ 1,000 ML IV SCH (12:16)
[2017-06-19] MEDS ORDERED: TERBUTALINE INJ 1 MG/ML AMP SQ PRN (12:45)
--- NOTE | 2017-06-19 15:19 | HHI.NSPN ---
(Lyle Joaquin) History Chief Complaint: Unable to obtain due to patient's clinical condition. (Jemal Lyle) Interval History This 57-year-old right-handed female had the acute onset of severe headache early this morning and also complained of weakness in her legs, left more than right, along with paresthesias and subsequently became more lethargic. She was found on the floor by her with positive complaints of nausea. On arrival to the emergency room she was lethargic but responsive. CT scan of the head obtained reveals extensive diffuse subarachnoid hemorrhage involving the basal cisterns and also extending into the bilateral sylvian fissure and interhemispheric fissure and prepontine fissure along with suprasellar cistern. There is also mild hydrocephalus associated with this and slight dilation of the temporal horns bilaterally. 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 The patient is lethargic but does respond to verbal commands and follows simple instructions. 06/16/17: 5x4x3 mm ACOM aneurysm successfully treated with coil embolization on 06/15/17. No significant vasospasm seen involving the left intracranial vasculature per interventional radiology. Pt awakens to voice. Complains of headache all over. Has nausea and had episode of vomiting last night. Pt denies any paresthesias or weakness. She is lethargic and prefers her eyes closed, but awakens to voice. 06/17/17: Pt awake more alert this afternoon. Complains of headache all over. Nausea. Pt was up in chair earlier. Follows commands well. 06/18/17: Pt currently sedated for a STAT CT head that was ordered by critical care. Discussed with critical care and pt was acting restless and more confused but was following commands and gripping hands symmetrically. A follow up CT was obtained which revealed a new left frontal intraparenchymal hemorrhage with surrounding edema. Critical care is going to intubate pt for airway control and Dr. Yen is going to place a ventriculostomy drain. 06/19: Patient remains intubated and mechanically ventilated. She is on propofol 50 mcg/kg/min and midazolam 4 mL/hr for sedation. She has 3% saline infusing. She is on vasopressin at 6 mL/hr for blood pressure support. Nursing reports that she drain 75 mL from the ventriculostomy at 1400. This morning during a sedation vacation the patient did open her eyes to voice. She also reports that the patient's ICP has been running 5 to 8 but will go up to 10 when the ventriculostomy system is clamped or the patient is repositioned. (Lyle Joaquin) System Review Comments Unable to obtain due to patient's clinical condition. (Lyle Joaquin) Exam Results Vital Signs Date Time Temp Pulse Resp B/P Pulse Ox O2 Delivery O2 Flow Rate FiO2 06/19/17 12:00 40 06/19/17 12:00 100.4 97 14 164/95 100 130/71 06/19/17 07:00 Mechanical Ventilator 06/17/17 07:00 1.00 Intake and Output 06/18/17 06/18/17 06/19/17 08:00 16:00 00:00 Intake Total 661 ml 1297 ml Output Total 1300 ml 2340 ml Balance -639 ml -1043 ml (Lyle Joaquin) Physical Examination GENERAL: The patient nonresponsive to verbal stimuli, she is on propofol at 50 mcg/kg/min and midazolam at 4 mL/hr for sedation, NAD. SKIN: Warm, dry & intact, no evident drainage, erythema or streaking from ventriculostomy site. HEENT: Normocephalic, atraumatic, ventriculostomy site intact, orally intubated , OGT. NECK: Neck supple, no JVD, trachea midline. Right IJ central venous catheter. CARDIOVASCULAR: S1S2 w/RRR w/o M/G/R, radial & pedal pulses 2+ bilaterally, cap refill < 2 sec, no pedal edema. Monitor is sinus rhythm w/o any ectopy noted. RESPIRATORY: CTAB w/o W/R/R, equal excursion, nonlaboured, orally intubated & mechanically ventilated. GASTROINTESTINAL: Abdomen soft, positive bowel sounds, OGT w/enteral feeds. MUSCULOSKELETAL: Slight movement of extremities to noxious stimuli, no evident deformity or clubbing. NEUROLOGICAL: No eye opening to stimuli, on propofol & midazolam drips, GCS 4-5T (E1 V1T M2-3) Does not follow commands PERRLA 3 mm brisk Unable to assess sensation due to mental status Slight movement all extremities to localised noxious stimuli but unable to tell if extension or flexion ICP ranging 5 to 8 per Nursing but will go to 10 with drain clamped or movement of patient (Lyle Joaquin) Lab, Micro, Other Results Allergies Coded Allergies Type Severity Reaction Last Updated Verified No Known Allergies 02/25/16 Yes Recent Impressions Transcranial Doppler Study Complete 06/19/17 0000 Signed Impressions: Service Date/Time: Monday, June 19, 2017 07:26 - CONCLUSION: Increase in the degree of vasospasm on the left and decrease in degree of vasospasm on the right since the prior exam from one day ago. Sascha Montez MD Transcranial Doppler Study Complete 06/18/17 0000 Signed Impressions: Service Date/Time: Sunday, June 18, 2017 07:57 - CONCLUSION: There are no findings to indicate vasospasm. The mildly elevated Lindegard ratios are likely related to physiologic factors. Silas Ortez MD Head CTA 06/18/17 0000 Signed Impressions: Service Date/Time: Monday, June 19, 2017 00:44 - CONCLUSION: Interval ACOMM aneurysm coiling with satisfactory appearance as above. Silas Mtz MD Head CT 06/18/17 0000 Signed Impressions: Service Date/Time: Sunday, June 18, 2017 10:57 - CONCLUSION: 1. Subarachnoid hemorrhage is stable. 2. There is mild vasogenic edema in the left frontal lobe with mass effect but no significant midline shift. This is adjacent to some intraparenchymal hemorrhage. This is new from previous study. Pascual Sanderson MD Chest X-Ray 06/18/17 0000 Signed Impressions: Service Date/Time: Sunday, June 18, 2017 13:05 - CONCLUSION: Lines and tubes as detailed above without pneumothorax or infiltrate. Emile Walker Jr., MD Transcranial Doppler Study Complete 06/17/17 0000 Signed Impressions: Service Date/Time: May 08:11 - CONCLUSION: 1. No evidence for significant vasospasm. Brown Schuler MD //// 05:59 17:59 05:59 17:59 05:59 17:59 Intake Total 702 ml 1043 ml 396 ml 661 ml 1297 ml 1780 ml Output Total 400 ml 1270 ml 975 ml 1300 ml 2340 ml 1407 ml Balance 302 ml -227 ml -579 ml -639 ml -1043 ml 373 ml Intake Oral 200 ml 200 ml 200 ml IV Total 702 ml 843 ml 396 ml 461 ml 1097 ml 1780 ml Output Urine Total 400 ml 1270 ml 975 ml 1300 ml 2200 ml 1350 ml Gastric Drainage Total 100 ml 0 ml Drainage Total 40 ml 57 ml # Bowel Movements 0 0 0 0 2 0 Laboratory Tests Test 06/18/17 06/18/17 06/18/17 06/18/17 03:53 13:30 16:36 20:08 Sodium Level 133 MEQ/L 133 MEQ/L 137 MEQ/L Potassium Level 2.6 MEQ/L 2.4 MEQ/L 5.0 MEQ/L Chloride Level 96 MEQ/L Carbon Dioxide Level 26.3 MEQ/L Anion Gap 11 MEQ/L Blood Urea Nitrogen 9 MG/DL Creatinine 0.45 MG/DL Estimat Glomerular Filtration 143 ML/MIN Rate Random Glucose 124 MG/DL Calcium Level 8.6 MG/DL Magnesium Level 1.9 MG/DL 1.8 MG/DL Serum Osmolality 272 MOSM/KG 291 MOSM/KG Blood Gas Puncture Site ART LINE Blood Gas Patient Temperature 98.6 Blood Gas HCO3 24 mmol/L Blood Gas Base Excess 1.7 mmol/L Blood Gas Oxygen Saturation 98 % Arterial Blood pH 7.53 Arterial Blood Partial 29 mmHg Pressure CO2 Arterial Blood Partial 193 mmHg Pressure O2 Arterial Blood Oxygen Content 14.3 Vol % Arterial Blood 1.2 % Carboxyhemoglobin Arterial Blood Methemoglobin 0.9 % Blood Gas Hemoglobin 10.1 G/DL Oxygen Delivery Device VENTILATOR Blood Gas Ventilator Setting A/C18/500/PEEP5 Blood Gas Inspired Oxygen 40 % Test 06/19/17 06/19/17 06/19/17 06/19/17 01:30 05:48 05:49 11:00 Sodium Level 142 MEQ/L 143 MEQ/L 143 MEQ/L Potassium Level 4.0 MEQ/L 3.4 MEQ/L White Blood Count 17.3 TH/MM3 Red Blood Count 3.01 MIL/MM3 Hemoglobin 9.6 GM/DL Hematocrit 27.9 % Mean Corpuscular Volume 92.6 FL Mean Corpuscular Hemoglobin 31.8 PG Mean Corpuscular Hemoglobin 34.3 % Concent Red Cell Distribution Width 13.7 % Platelet Count 248 TH/MM3 Mean Platelet Volume 8.5 FL Neutrophils (%) (Auto) 79.2 % Lymphocytes (%) (Auto) 11.4 % Monocytes (%) (Auto) 9.1 % Eosinophils (%) (Auto) 0.1 % Basophils (%) (Auto) 0.2 % Neutrophils # (Auto) 13.7 TH/MM3 Lymphocytes # (Auto) 2.0 TH/MM3 Monocytes # (Auto) 1.6 TH/MM3 Eosinophils # (Auto) 0.0 TH/MM3 Basophils # (Auto) 0.0 TH/MM3 CBC Comment DIFF FINAL Differential Comment Chloride Level 113 MEQ/L Carbon Dioxide Level 22.1 MEQ/L Anion Gap 8 MEQ/L Blood Urea Nitrogen 9 MG/DL Creatinine 0.51 MG/DL Estimat Glomerular Filtration 123 ML/MIN Rate Random Glucose 154 MG/DL Serum Osmolality 295 MOSM/KG 297 MOSM/KG Calcium Level 7.7 MG/DL Blood Gas Puncture Site ART LINE Blood Gas Patient Temperature 98.6 Blood Gas HCO3 22 mmol/L Blood Gas Base Excess -2.4 mmol/L Blood Gas Oxygen Saturation 97 % Arterial Blood pH 7.41 Arterial Blood Partial 34 mmHg Pressure CO2 Arterial Blood Partial 168 mmHg Pressure O2 Arterial Blood Oxygen Content 13.0 Vol % Arterial Blood 1.0 % Carboxyhemoglobin Arterial Blood Methemoglobin 1.0 % Blood Gas Hemoglobin 9.2 G/DL Oxygen Delivery Device VENTILATOR Blood Gas Ventilator Setting AC14/450/PEEP5 Blood Gas Inspired Oxygen 40 % Vital Signs Date Time Temp Pulse Resp B/P Pulse Ox O2 Delivery O2 Flow Rate FiO2 06/19/17 12:00 40 06/19/17 12:00 100.4 97 14 164/95 100 130/71 06/19/17 11:00 100 40 06/19/17 08:21 100 40 06/19/17 08:00 40 06/19/17 08:00 100.1 74 14 146/99 100 154/96 06/19/17 07:00 100 Mechanical Ventilator 40 06/19/17 07:00 75 06/19/17 04:00 98 06/19/17 04:00 98.0 98 14 145/67 100 134/68 06/19/17 04:00 40 06/19/17 03:40 100 40 06/19/17 03:40 100 40 06/19/17 02:00 78 06/19/17 01:10 100 100 06/19/17 00:00 84 06/19/17 00:00 99.0 84 14 100 130/65 06/19/17 00:00 40 06/18/17 22:00 78 06/18/17 20:00 98.3 90 20 139/83 100 152/87 06/18/17 20:00 90 06/18/17 20:00 40 06/18/17 20:00 66 139/83 152/87 06/18/17 19:00 100 Mechanical Ventilator 40 06/18/17 18:24 100 40 06/18/17 18:00 98.2 64 16 102/65 100 06/18/17 17:00 100 40 06/18/17 16:43 100 40 06/18/17 16:00 40 06/18/17 15:00 62 06/18/17 14:32 100 40 06/18/17 12:42 100 40 06/18/17 12:00 98.4 72 20 140/82 100 06/18/17 12:00 40 06/18/17 08:00 98.2 66 17 157/75 100 06/18/17 07:00 100 Room Air 06/18/17 07:00 82 06/18/17 04:00 98.1 64 16 160/105 98 06/18/17 00:00 98.3 78 24 159/76 98 06/17/17 23:00 62 06/17/17 20:00 98.1 70 19 157/78 94 06/17/17 19:00 97 Room Air 06/17/17 16:00 98.3 59 16 132/62 98 06/17/17 15:00 69 06/17/17 12:00 99.1 59 14 157/76 98 06/17/17 08:00 98.1 66 13 143/68 96 06/17/17 07:00 68 06/17/17 07:00 98 Nasal Cannula 1.00 06/17/17 04:00 98.1 65 15 146/68 98 06/17/17 00:00 98.2 68 21 148/71 98 06/16/17 23:00 60 06/16/17 20:00 98.8 58 13 136/65 95 06/16/17 19:00 95 Nasal Cannula 1.00 06/16/17 19:00 95 Nasal Cannula 2.00 06/16/17 16:00 98.1 58 12 134/64 97 (Lyle Joaquin) Medical Decision Making Impression and Plan Impression: 1. 57 y/o FM with diffuse subarachnoid hemorrhage involving the basal cisterns as well as the interhemispheric fissure with a mild hydrocephalus from a ruptured anterior communicating artery aneurysm. s/p aneurysm coiling by radiology special procedures. 2. Hypertension. 3. New left frontal intraparenchymal hemorrhage with surrounding edema TCD with increase in left vasospasm and decrease in right vasospasm Ventriculostomy w/97 mL drainage overnight with Nursing reporting another 75 mL at 1400, drainage pink in colour & clear Sodium 143 Patient w/stable neurological function which remains poor at present Plan: Discussed plan of care with Nursing Discussed plan of care with family Frequent neuro checks Continue ventriculostomy drain & monitor ICP Permissive hypertension prophylactically for vasospasm treatment Continue critical care management (Lyle Joaquin) Attending Statement I had a long discussion today, approximately 20 minutes with the family in the intensive surgical care unit and answered numerous questions. Her examination remained stable, pupils 2-3 mm nonreactive, no response to deep pain. There is some discrepancy between the most recent transcranial Dopplers and the CT angiogram. A follow-up CT angiogram will be requested. Continuing ventilatory support and sedation. Continuing permissive hypertension with systolic blood pressure in the 170s this evening. (Sammy Macias MD) Lyle Joaquin Jun 19, 2017 15:19 Sammy Macias MD Jun 19, 2017 23:08
[2017-06-20] VITALS (18 sets, daily range): BP systolic 158–184; BP diastolic 82–93; PULSE 64–113; RESP 14–16; TEMP 98.1–99.7; O2SAT 93–100
[2017-06-20] MEDS: PROPOFOL 1000 MG/100 ML IV SCH ×5 (00:13→23:18)
[2017-06-20] MEDS: PHENYLEPHRINE INJ 160 MG in SODIUM CHLORID 0.9% 500 ML INJ 500 ML IV SCH ×3 (00:14→18:11)
[2017-06-20] MEDS: VASOPRESSIN INJ 40 UNITS in DEXTROSE 5% IN WATER 100ML INJ 98 ML IV SCH ×4 (00:14→18:47)
[2017-06-20] MEDS: niMODipine 30 MG CAP PO SCH ×7 (00:14→23:59)
[2017-06-20] MEDS: 3% SALINE INJ 500 ML IV SCH ×2 (00:45→11:30)
[2017-06-20] MEDS: POTASSIUM CHLOR 40 MEQ PREMIX 100 ML IV PRN (00:53)
[2017-06-20 02:57] LABS: BICARBONATE 24.5 MEQ/L (21.0-32.0); MAGNESIUM 1.6 MG/DL (1.5-2.5); POTASSIUM 3.4 MEQ/L (3.5-5.1)
[2017-06-20] MEDS: SODIUM PHOSPHATE INJ 30 MMOL in SODIUM CHLOR 0.9% 250 ML INJ 240 ML IV PRN ×2 (05:02→18:51)
[2017-06-20] MEDS: MAGNESIUM SULFATE INJ 2 GM in SODIUM CHLORIDE 0.9% INJ 96 ML IV PRN ×2 (05:22→18:28)
[2017-06-20] MEDS: SODIUM CHLOR 0.9% 1000 ML INJ 1,000 ML IV SCH ×6 (06:09→23:19)
[2017-06-20] MEDS: CHLORHEXIDINE GLUCONATE 2 % 1 PACK (2 CLOTHS) TOP SCH (06:10)
[2017-06-20] MEDS ORDERED: IOHEXOL 350 MG/ML 10 ML VIAL (for RAD DIAG) IV ONE (08:00)
--- NOTE | 2017-06-20 08:10 | HHI.CCPN ---
Subjective Remarks/Hospital Course 06/15: Acute SAH with a-com aneurysm. Coiled 06/15. 06/16: BP control acceptable. Severe headache, but she gets somnolent after minimal analgesia. Some nausea and vomiting. 06/17: BP control good. Mild permissive hypertension 150s. Persistent headache and anxiety. Patient requests nicoderm patch but I am concerned about promoting unnecessary vasospasm. 06/18: Sudden onset altered mental status. Patient complaining of head ache and turning in bed, somewhat decreased level of consciousness. Transcranial Doppler did not show vasospasm today morning. Continue permissive hypertension. Stat CT of the head and CT angiogram ordered and discussed with interventional radiology Dr. Sanderson. (Dr. Yen in [place]) 06/19: Blood pressure in good range.TCDs today. Start TFs. 06/20: TCD 06/19 showed increase in the degree of vasospasm on the left, and decrease in degree of vasospasm on the right since the prior exam from one day ago. Getting CTA brain today. Remains on vasopressin and Emil-Synephrine to maintain systolic blood pressure 160-180. EVD drained 182 mL in 24 hours, ICP well controlled. UO 7L in 24 hours Objective Vital Signs Date Time Temp Pulse Resp B/P Pulse Ox O2 Delivery O2 Flow Rate FiO2 06/20/17 06:00 81 178/89 06/20/17 04:04 100 40 06/20/17 04:00 99.2 14 06/19/17 19:00 Mechanical Ventilator 06/17/17 07:00 1.00 Intake and Output 06/19/17 06/19/17 06/20/17 08:00 16:00 00:00 Intake Total 1780 ml 1569 ml 1709 ml Output Total 1407 ml 2075 ml 2664 ml Balance 373 ml -506 ml -955 ml Result Diagram: 06/19/17 0548 06/20/17 0230 Objective Remarks Gen: Sedated, ventilated, middle age woman. Head: Atraumatic. EVD in place, 182 ml in 24 hours Neck: Supple, orally intubated. Lungs: Clear, no wheezes or crackles. Normal excursions. Heart: RRR, no m,r. No JVD. Abdomen: Soft, nondistended, no guarding. BS active. Extremities: Warm, well perfused. No edema. Neuro: Sudden onset change in mental status 06/18. CT head concerning for left frontal parenchymal bleed with vasogenic edema. Requiring intubation and mechanical ventilation. Pupils are equal reactive. Withdraws 4 to painful stimuli Urinary Catheter: Yes Assessment to: Continue Vascular Central Line Catheter: Yes Assessment to: Continue A/P Problem List: (1) SAH (subarachnoid hemorrhage) ICD Code: I60.9 Status: Acute (2) Aneurysm of anterior communicating artery ICD Code: I67.1 Status: Acute (3) Encephalopathy acute ICD Code: G93.40 Status: Acute Assessment and Plan Plan: NEURO Extensive subarachnoid hemorrhage secondary to ruptured ACOM aneurysm Vasospasm - 5x4x3 mm ACOM aneurysm successfully treated with coil embolization. - Transcranial Dopplers showing vasospasm on the left side 06/19/17, stat CTA today - Continue vasopressors to keep systolic blood pressure 160-180 - Continue Nimotop - Keep sodium 145-150, keep magnesium more than 2 - Avoid hypoxia hypercarbia - Continue daily transcranial dopplers. CVS: Permissive hypertension - Permissive hypertension with vasopressin and Emil-Synephrine to keep SBP 160- 180 - NS iv at 150ml/hr - Nimodipine 60 mg q4h. RESP: Acute respiratory failure - Intubated for airway protection 06/18/17 - DuoNeb every 6 hours and when necessary ventilator bundle - HOB elevated. - No vent weaning until mental status is improved and vasospasm better controlled GI: - Tube feedings with Jevity, bowel regimen, IV Protonix - Having daily bowel movements : - Sneed for accurate intake output - Electrolyte replacement per protocol ID/HEME: - Monitor for infection - Leukocytosis may be stress related - Panculture if spiking fever Proph: - No chemical DVT prophylaxis. - SCDs. - Protonix. Overall impression: Extensive SAH associated with ACOM aneurysm. She is critically ill, now with vasospasm and respiratory failure. Large amount of blood, elevated risk for vasospasm. Follow dopplers closely, CT head, CTA ordered. Discussed at length with family at the bedside. Critical care 45 mins Tona Rosen MD Jun 20, 2017 08:10
[2017-06-20] MEDS: PANTOPRAZOLE SOD 40 MG DELAYED RELEASE TAB PO SCH (08:29)
[2017-06-20] MEDS: DOCUSATE SODIUM 50 MG/SENNA 8.6 MG TAB PO SCH ×2 (08:29→20:08)
[2017-06-20] MEDS: levETIRAcetam INJ 500 MG in SODIUM CHLORIDE 0.9% INJ 100 ML IV SCH ×2 (08:29→20:09)
--- NOTE | 2017-06-20 08:40 | RADRPT ---
EXAM DATE/TIME: 06/20/2017 07:52 [facility] COMPARISON: CTA BRAIN W 3D RECON, June 19, 2017, 0:44. INDICATIONS : Follow up SAH, compression of vein. IV CONTRAST: 70 cc Omnipaque 350 (iohexol) IV RADIATION DOSE: 9.98 CTDIvol (mGy) MEDICAL HISTORY : Hypertension. Cardiovascular disease SURGICAL HISTORY : Aneurysm coil 06/16 ENCOUNTER: Subsequent ACUITY: 4 - 6 days PAIN SCALE: Non-responsive LOCATION: cranial TECHNIQUE: Volumetric scanning was performed using a multi-row detector CT scanner. The data was post processed with a variety of visualization algorithms including full volume maximum intensity projection, multi -planar sliding thin slab reformation, curved planar reformation, and surface rendering techniques. Using automated exposure control and adjustment of the mA and/or kV according to patient size, radiat ion dose was kept as low as reasonably achievable to obtain optimal diagnostic quality images. DICO M format image data is available electronically for review and comparison. FINDINGS: There is no evidence for any significant vasospasm involving the middle cerebral arteries. There is e vidence for prior ACOM coiling the posterior circulation appears intact. There is no appreciable ring ge. CONCLUSION: No evidence for any significant spasm. Sascha Montez MD on June 20, 2017 at 8:33 Board Certified Radiologist. This report was verified electronically.
[2017-06-20] MEDS: BENEPROTEIN POWDER 1 PACK G-TUBE SCH ×3 (09:00→18:00)
[2017-06-20] MEDS ORDERED: SODIUM CHLOR 0.9% 1000 ML INJ 1,000 ML IV ONE ×4 (09:15→13:15)
[2017-06-20] MEDS ORDERED: PANTOPRAZOLE SODIUM 40 MG VIAL IV PUSH ONE (09:15)
[2017-06-20] MEDS: MORPHINE SULFATE 4 MG/ML INJ IV PRN (09:38)
[2017-06-20] MEDS: fentaNYL 2,500 MCG/NS 250 ML IV SCH (10:20)
--- NOTE | 2017-06-20 11:17 | RADRPT ---
EXAM DATE/TIME: 06/20/2017 08:34 [facility] COMPARISON: US TRANSCRANIAL DOPPLER COMPLETE, June 19, 2017, 7:26. CTA BRAIN W 3D RECON, June 20, 2017, 7:52. INDICATIONS : Subarachnoid hemorrhage. MEDICAL HISTORY : Arthritis. Hypertension. Subarachnoid hemorrhage. Weakness. SURGICAL HISTORY : Tubal ligation. Aneurysm coil. ENCOUNTER: Subsequent ACUITY: 4-6 days PAIN SCORE: Nonresponsive. LOCATION: Bilateral cranial Current Exam: Jun 20, 2017 [place]ard Ratio: Right: 2.0 Left: 3.3 Fernández Ratio: Right: 1.3 Left: 2.5 Previous Exam: Jun 19, 2017 [place]ard Ratio: Right: 1.5 Left: 3.1 Fernández Ratio: Right: 1.1 Left: 6.2 FINDINGS: The Fernández ratio on the left side has decreased since the prior study from one day ago. There is no va sospasm on the right, however borderline mild vasospasm is present on the left although the patient's CT angiogram did not demonstrate any vasospasm. CONCLUSION: There is no vasospasm on the right and the Fernández ratio is within normal limits on the left at this ti me. Sascha Montez MD on June 20, 2017 at 11:14 Board Certified Radiologist. This report was verified electronically.
[2017-06-20] MEDS ORDERED: DESMOPRESSIN ACETATE 4 MCG/ML VIAL IV ONE (13:15)
[2017-06-20] MEDS: NOREPINEPHRINE INJ 4 MG in SODIUM CHLOR 0.9% 250 ML INJ 246 ML IV SCH ×5 (13:26→23:14)
--- NOTE | 2017-06-20 14:07 | RADRPT ---
EXAM DATE/TIME: 06/20/2017 13:57 [facility] COMPARISON: CHEST SINGLE AP, June 18, 2017, 13:05. INDICATIONS : Short of breath. MEDICAL HISTORY : Hypertension. SURGICAL HISTORY : None. ENCOUNTER: Subsequent ACUITY: 4 - 6 days PAIN SCORE: Non-responsive. LOCATION: Bilateral chest FINDINGS: Lines and tubes are present not significantly changed. Bibasilar opacities are present may be due to a combination of consolidation and or pleural effusion. There is old healed right clavicular fracture . The rest of the examination has not significantly changed. CONCLUSION: Bibasilar opacities are present may be due to a combination of consolidation and or pleural effusion not present previously. Sascha Montez MD on June 20, 2017 at 14:04 Board Certified Radiologist. This report was verified electronically.
--- NOTE | 2017-06-20 14:57 | HHI.NSPN ---
History Chief Complaint: Unable to obtain due to patient's clinical condition. Interval History 57-year-old female admitted 06/15/17 with acute onset severe headache. 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 06/15/17 endovascular coiling of aneurysm. 06/18/17 patient with increasing confusion, new left frontal interparenchymal hemorrhage with surrounding edema on follow-up CT scan. Patient intubated for airway control. Ventriculostomy placed. 06/20/17: Remains intubated, mechanical ventilation, intravenous sedation. Exam Results Vital Signs Date Time Temp Pulse Resp B/P Pulse Ox O2 Delivery O2 Flow Rate FiO2 06/20/17 12:26 96 60 06/20/17 12:00 98.1 91 16 179/82 06/20/17 08:54 Ventilator 06/17/17 07:00 1.00 Intake and Output 06/19/17 06/19/17 06/20/17 08:00 16:00 00:00 Intake Total 1780 ml 1569 ml 1709 ml Output Total 1407 ml 2075 ml 2664 ml Balance 373 ml -506 ml -955 ml Physical Examination GENERAL: The patient nonresponsive to verbal stimuli, she is on propofol at 50 mcg/kg/min and midazolam at 4 mL/hr for sedation, NAD. SKIN: Warm, dry & intact, no evident drainage, erythema or streaking from ventriculostomy site. HEENT: Normocephalic, atraumatic, ventriculostomy site intact, orally intubated , OGT. NECK: Neck supple, no JVD, trachea midline. Right IJ central venous catheter. CARDIOVASCULAR: S1S2 w/RRR w/o M/G/R, radial & pedal pulses 2+ bilaterally, cap refill < 2 sec, no pedal edema. Monitor is sinus rhythm w/o any ectopy noted. RESPIRATORY: CTAB w/o W/R/R, equal excursion, nonlaboured, orally intubated & mechanically ventilated. GASTROINTESTINAL: Abdomen soft, positive bowel sounds, OGT w/enteral feeds. MUSCULOSKELETAL: Slight movement of extremities to noxious stimuli, no evident deformity or clubbing. NEUROLOGICAL: No eye opening to stimuli, on propofol & midazolam drips, GCS 4-5T (E1 V1T M2-3) Does not follow commands PERRLA 3 mm brisk Minimal conjugate oculocephalic response Unable to assess sensation due to mental status Slight movement all extremities to localised noxious stimuli but unable to tell if extension or flexion ICPs mostly less than 10. External ventricular drain functioning well. Lab, Micro, Other Results Laboratory Tests Test 06/19/17 06/20/17 06/20/17 06/20/17 18:47 02:30 08:15 09:20 Sodium Level 143 MEQ/L 146 MEQ/L 144 MEQ/L Potassium Level 3.0 MEQ/L 3.4 MEQ/L Serum Osmolality 295 MOSM/KG 300 MOSM/KG Chloride Level 111 MEQ/L Carbon Dioxide Level 24.5 MEQ/L Anion Gap 11 MEQ/L Blood Urea Nitrogen 7 MG/DL Creatinine 0.42 MG/DL Estimat Glomerular Filtration 154 ML/MIN Rate Random Glucose 151 MG/DL Calcium Level 8.2 MG/DL Phosphorus Level 1.5 MG/DL Magnesium Level 1.6 MG/DL Urine Osmolality 454 MOSM/KG Imaging studies: 06/20/17 angiogram brain images reviewed. No evidence of vasospasm. No evidence of residual aneurysm Head CTA 06/20/17 0600 Signed Impressions: Service Date/Time: Tuesday, June 20, 2017 07:52 - CONCLUSION: No evidence for any significant spasm. Sascha Montez MD Transcranial Doppler Study Complete 06/20/17 0000 Signed Impressions: Service Date/Time: Tuesday, June 20, 2017 08:34 - CONCLUSION: There is no vasospasm on the right and the Fernández ratio is within normal limits on the left at this time. Sascha Montez MD Chest X-Ray 06/20/17 0000 Signed Impressions: Service Date/Time: Tuesday, June 20, 2017 13:57 - CONCLUSION: Bibasilar opacities are present may be due to a combination of consolidation and or pleural effusion not present previously. Sascha Montez MD Medical Decision Making Impression and Plan Impression: 1. Stable neurologic exam over the past 2 days. 2. Transcranial Doppler and CT angiogram today without evidence of significant vasospasm Plan: Continue full ventilatory support with intravenous sedation Continuing permissive hypertension. She is on vasopressin, leaving that as needed. Continuing external ventricular drain at present height. On nimodipine for vasospasm prophylaxis. Sammy Macias MD Jun 20, 2017 14:57
[2017-06-20] MEDS: PIPERACIL-TAZO 4.5 GM PREMIX 100 ML IV SCH ×2 (15:53→21:44)
[2017-06-20 16:36] LABS: MAGNESIUM 1.5 MG/DL (1.5-2.5)
[2017-06-20 16:39] LABS: POTASSIUM 2.4 MEQ/L (3.5-5.1)
[2017-06-20] MEDS: POTASSIUM CHLOR 40 MEQ PREMIX 100 ML IV SCH ×2 (17:00→18:56)
[2017-06-20] MEDS: POTASSIUM CHLORIDE 20 MEQ CONTROLLED RELEASE TAB PO SCH ×2 (17:00→18:00)
[2017-06-20] MEDS: POTASSIUM CHLORIDE 25 MEQ EFFERVESCENT TAB PO PRN ×2 (17:08→17:59)
[2017-06-20] MEDS ORDERED: TERBUTALINE INJ 1 MG/ML AMP SQ PRN (17:30)
[2017-06-20] MEDS ORDERED: DOPamine INJ PREMIX 500 ML IV SCH (17:30)
[2017-06-20 21:53] LABS: BICARBONATE 22.4 MEQ/L (21.0-32.0); POTASSIUM 3.7 MEQ/L (3.5-5.1)
[2017-06-20 22:09] LABS: CALCIUM-PROTEIN CORRECTED 7.8 MG/DL (8.5-10.1)
[2017-06-20] MEDS: MIDAZOLAM 100 MG/ML INJ 100 ML IV SCH (23:18)
[2017-06-21] VITALS (21 sets, daily range): BP systolic 98–179; BP diastolic 58–86; PULSE 94–122; RESP 14–18; TEMP 97.5–99.8; O2SAT 34–97
[2017-06-21] MEDS: NOREPINEPHRINE INJ 4 MG in SODIUM CHLOR 0.9% 250 ML INJ 246 ML IV SCH ×3 (01:29→06:37)
[2017-06-21] MEDS: fentaNYL 2,500 MCG/NS 250 ML IV SCH (01:35)
[2017-06-21] MEDS: PHENYLEPHRINE INJ 160 MG in SODIUM CHLORID 0.9% 500 ML INJ 500 ML IV SCH ×2 (01:36→07:57)
[2017-06-21] MEDS: CHLORHEXIDINE GLUCONATE 2 % 1 PACK (2 CLOTHS) TOP SCH (03:31)
[2017-06-21 03:37] LABS: AUTOMATED NEUTROPHIL # 17.1 TH/MM3 (1.8-7.7); BASOPHIL % 0.2 % (0.0-2.0); EOSINOPHIL # 0.1 TH/MM3 (0-0.4); EOSINOPHIL % 0.6 % (0.0-4.0); HEMATOCRIT 29.8 % (35.0-46.0); HEMO FLAGS DIFF FINAL; LYMPH % 7.8 % (9.0-44.0); LYMPHOCYTE # 1.5 TH/MM3 (1.0-4.8); MEAN CELL VOLUME 93.1 FL (80.0-100.0); MEAN CORPUSCULAR HGB CONC 33.2 % (32.0-36.0); MONO % 5.3 % (0.0-8.0); NEUT % 86.1 % (16.0-70.0); PLATELET COUNT 248 TH/MM3 (150-450); RED CELL DISTRIBUTION WIDTH 13.8 % (11.6-17.2); WHITE BLOOD COUNT 19.9 TH/MM3 (4.0-11.0)
[2017-06-21] MEDS: PIPERACIL-TAZO 4.5 GM PREMIX 100 ML IV SCH ×2 (03:39→10:00)
[2017-06-21] MEDS: niMODipine 30 MG CAP PO SCH ×2 (03:56→08:00)
--- NOTE | 2017-06-21 04:55 | RADRPT ---
EXAM DATE/TIME: 06/21/2017 03:58 [facility] COMPARISON: CHEST SINGLE AP, June 20, 2017, 13:57. INDICATIONS : Respiratory failure, evaluate for infiltrate MEDICAL HISTORY : Hypertension. SURGICAL HISTORY : None. ENCOUNTER: Subsequent ACUITY: 1 week PAIN SCORE: Non-responsive. LOCATION: Bilateral chest FINDINGS: Portable AP view of the chest demonstrates a normal-sized cardiac silhouette. Right IJ line tip is in the SVC. ETT and nasogastric tube remain present. There is bilateral airspace consolidation and pleu ral-based opacities, slightly increased from the prior study. No pneumothorax is visualized. CONCLUSION: Bilateral pleural effusions with associated atelectasis and/or consolidation has slightly increased f rom the prior study. Silas Ortez MD on June 21, 2017 at 4:53 Board Certified Radiologist. This report was verified electronically.
[2017-06-21] MEDS: SODIUM CHLOR 0.9% 1000 ML INJ 1,000 ML IV SCH ×7 (05:07→19:57)
[2017-06-21] MEDS: PROPOFOL 1000 MG/100 ML IV SCH (05:07)
[2017-06-21] MEDS ORDERED: ALBUMIN HUMAN 5% 25 GM/500 ML BOTTLE IV SCH ×2 (05:30→06:00)
[2017-06-21] MEDS: 3% SALINE INJ 500 ML IV SCH (05:43)
[2017-06-21] MEDS ORDERED: Vancomycin Consult Pharmacy 1 EA OTHER SCH (06:00)
[2017-06-21] MEDS ORDERED: SODIUM CHLOR 0.9% 1000 ML INJ 1,000 ML IV ONE ×2 (06:00)
[2017-06-21] MEDS: MIDAZOLAM 100 MG/ML INJ 100 ML IV SCH (07:11)
[2017-06-21] MEDS: MILRINONE INJ 20 MG in SODIUM CHLORIDE 0.9% INJ 80 ML IV SCH ×3 (07:12→20:57)
[2017-06-21] MEDS ORDERED: CEFEPIME INJ 2,000 MG in SODIUM CHLORIDE 0.9% INJ 100 ML IV SCH (08:00)
[2017-06-21 08:41] LABS: BICARBONATE 23.3 MEQ/L (21.0-32.0)
[2017-06-21 08:49] LABS: POTASSIUM 2.7 MEQ/L (3.5-5.1)
[2017-06-21] MEDS: BENEPROTEIN POWDER 1 PACK G-TUBE SCH ×3 (09:00→17:11)
[2017-06-21] MEDS: DOCUSATE SODIUM 50 MG/SENNA 8.6 MG TAB PO SCH ×2 (09:00→21:03)
[2017-06-21] MEDS ORDERED: VANCOMYCIN INJ 1,000 MG in SODIUM CHLOR 0.9% 250 ML INJ 250 ML IV ONE (09:00)
[2017-06-21] MEDS ORDERED: HYDROCORTISONE SOD SUCCINATE 100 MG VIAL IV ONE (09:15)
[2017-06-21] MEDS: levETIRAcetam INJ 500 MG in SODIUM CHLORIDE 0.9% INJ 100 ML IV SCH ×2 (09:59→21:04)
[2017-06-21] MEDS: POTASSIUM CHLORIDE 25 MEQ EFFERVESCENT TAB PO SCH ×2 (10:00→21:03)
[2017-06-21] MEDS: LEVOFLOXACIN 750 MG PREMIX INJ 150 ML IV SCH (10:00)
[2017-06-21] MEDS ORDERED: RESP: ALBUTEROL 2.5 MG/IPRATROPIUM 0.5 MG NEB (PRN) NEB (10:00)
--- NOTE | 2017-06-21 10:16 | HHI.CCPN ---
Subjective Remarks/Hospital Course 06/15: Acute SAH with a-com aneurysm. Coiled 06/15. 06/16: BP control acceptable. Severe headache, but she gets somnolent after minimal analgesia. Some nausea and vomiting. 06/17: BP control good. Mild permissive hypertension 150s. Persistent headache and anxiety. Patient requests nicoderm patch but I am concerned about promoting unnecessary vasospasm. 06/18: Sudden onset altered mental status. Patient complaining of head ache and turning in bed, somewhat decreased level of consciousness. Transcranial Doppler did not show vasospasm today morning. Continue permissive hypertension. Stat CT of the head and CT angiogram ordered and discussed with interventional radiology Dr. Sanderson. (Dr. Yen in [place]) 06/19: Blood pressure in good range.TCDs today. Start TFs. 06/20: TCD 06/19 showed increase in the degree of vasospasm on the left, and decrease in degree of vasospasm on the right since the prior exam from one day ago. Getting CTA brain today. Remains on vasopressin and Emil-Synephrine to maintain systolic blood pressure 160-180. EVD drained 182 mL in 24 hours, ICP well controlled. UO 7L in 24 hours 06/21: Remains extremely critical. Profound shock, on 4 pressors to maintain SBP >110. On norepinephrine, dopamine, Emil-Synephrine and vasopressin. Unable to obtain target systolic blood pressure more than 160. Patient was started on Zosyn yesterday added vancomycin today. Teixeira cultures sent stress dose hydrocortisone started. Start Ben-trac monitoring. UO >12 L in 24 hours, osmolality studies not consistent with DI joseph though partial DI is possible. Check urine sp gravity and osm again. and Start scheduled DDAVP is suggestive of DI. Family updated in detail Objective Vital Signs Date Time Temp Pulse Resp B/P Pulse Ox O2 Delivery O2 Flow Rate FiO2 06/21/17 08:46 94 80 06/21/17 06:00 109 98/58 06/21/17 04:00 99.8 14 06/20/17 19:00 Mechanical Ventilator 06/17/17 07:00 1.00 Intake and Output 06/20/17 06/20/17 06/21/17 08:00 16:00 00:00 Intake Total 1652 ml 6799 ml 6281 ml Output Total 2268 ml 4295 ml 4710.0 ml Balance -616 ml 2504 ml 1571.0 ml Result Diagram: 06/21/17 0300 06/21/17 0300 Objective Remarks Gen: Sedated, ventilated, middle age woman. Critically ill on four pressors Head: Atraumatic. EVD in place, 255 ml in 24 hours Eyes: DORYS Neck: Supple, orally intubated. Lungs: Air entry diminished bilaterally with coarse breath sounds. Heart: RRR, no m,r. No JVD. Abdomen: Soft, nondistended, no guarding. BS active. Extremities: Cold mottled extremities from high-dose vasopressors Neuro: Pupils are equal reactive. Positive cough and gag. No withdrawal to painful stimuli today while on sedation. A/P Problem List: (1) SAH (subarachnoid hemorrhage) ICD Code: I60.9 Status: Acute (2) Aneurysm of anterior communicating artery ICD Code: I67.1 Status: Acute (3) Encephalopathy acute ICD Code: G93.40 Status: Acute Assessment and Plan Plan: NEURO Extensive subarachnoid hemorrhage secondary to ruptured ACOM aneurysm Vasospasm Left frontal intraparenchymal hemorrhage, with edema Severe encephalopathy Possible DI - 5x4x3 mm ACOM aneurysm successfully treated with coil embolization. - Transcranial Dopplers showing vasospasm on the left side 06/19/17, stat CTA no significant vasospasm - CT head on 06/18/17 had shown left frontal vasogenic edema and intraparenchymal hemorrhage - Continue vasopressors to keep systolic blood pressure 160-180, unable to achieve target due to severe septic shock - Hold Nimotop - Keep sodium 150-155, keep magnesium more than 2. Avoid hypoxia hypercarbia - Continue daily transcranial dopplers. - Check stat serum osmolality, urine osmolality, urine specific gravity CVS: Severe shock/probable septic - Currently on 4 pressors due to severe shock - Check stat echo check lactic acid cortisol - Currently on maximum doses of Levophed, dopamine, vasopressin and Emil- Synephrine - Received normal saline boluses 7 L in the last 4 hours - NS iv at 300ml/hr. R/O DI - Hold Nimodipine due to profound shock - Replace calcium RESP: Acute hypoxemic respiratory failure Bilateral pleural effusion HCAP - Intubated for airway protection 06/18/17 - DuoNeb every 6 hours and when necessary ventilator bundle - HOB elevated. - No vent weaning until she'll come hypoxemia improved - Bedside ultrasound patient may need drainage of the pleural effusion to improve hypoxemic GI: - Hold Tube feedings due to refractory shock, IV Protonix - Having daily bowel movements : - Sneed for accurate intake output - Electrolyte replacement per protocol ID/HEME: Refractory septic shock Probable HCAP - Follow-up on blood urine and sputum culture - Leukocytosis worsening - Continue IV vancomycin Zosyn and Levaquin ENDO: Severe hypokalemia - Electrolyte replacement per protocol - Scheduled potassium for hypokalemia Proph: - No chemical DVT prophylaxis. - SCDs. - Protonix. Overall impression: Extensive SAH associated with ACOM aneurysm. She is critically ill, with vasospasm and respiratory failure. Large amount of blood, elevated risk for vasospasm. Now with worsening refractory septic shock on 4 pressors. Discussed at length with family at the bedside. High Mortality. family understands that patient is very critically ill with guarded prognosis Critical care 85 mins D/W Dr. Hoff, bedside RN multiple times Tona Rosen MD Jun 21, 2017 10:16
--- NOTE | 2017-06-21 10:18 | RADRPT ---
EXAM DATE/TIME: 06/21/2017 07:50 [facility] COMPARISON: US TRANSCRANIAL DOPPLER COMPLETE, June 20, 2017, 8:34. INDICATIONS : Subarachnoid hemorrhage. MEDICAL HISTORY : Hypertension. Arthritis. Subarachnoid hemorrhage. Weakness. SURGICAL HISTORY : Tubal ligation. Aneurysm coil. ENCOUNTER: Sequela ACUITY: 4-6 days PAIN SCORE: Nonresponsive. LOCATION: Bilateral cranial Current Exam: Jun 21, 2017 [place] Ratio: Right: 2.86 Left: 3.7 Fernández Ratio: Right: UTO Left: 2.27 Previous Exam: Jun 20, 2017 [place] Ratio: Right: 2.0 Left: 3.3 Fernández Ratio: Right: 1.3 Left: 2.5 FINDINGS: Examination performed at bedside. Real-time ultrasound with the assistance of color and spectral Dop pler was utilized to evaluate the intracerebral circulation. Time-averaged maximal velocities are ca lculated in cm/s. There is minimal elevation of the Lind[place]ard ratio is 3.7. There is increasing velocities in the rig ht middle cerebral artery. Continued followup is suggested. CONCLUSION: No significant vasospasm as yet. Flow remains in both anterior cerebral arteries. Jose E Méndez MD FACR on June 21, 2017 at 10:11 Board Certified Radiologist. This report was verified electronically.
--- NOTE | 2017-06-21 10:20 | HHI.NSPN ---
(Gena Nowak) Note Status Status: Progress Note (Gena Nowak) Interval History Interval History 57-year-old female admitted 06/15/17 with acute onset severe headache. 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 06/15/17 endovascular coiling of aneurysm. 06/18/17 patient with increasing confusion, new left frontal interparenchymal hemorrhage with surrounding edema on follow-up CT scan. Patient intubated for airway control. Ventriculostomy placed. 06/20/17: Remains intubated, mechanical ventilation, intravenous sedation. 06/21/17: possible septic shock, on multiple pressors. EVD draining well, bloody CSF, ICP wnl. f/u CTA Head yesterday neg for vasospasm. TCDs this morning pending. Sedation turned off 30 mins ago when rounded, no eye opening, not following commands, no withdrawals to extremities. (Gena Nowak) Labs, Micro, & Vital Signs Results Date Time Temp Pulse Resp B/P Pulse Ox O2 Delivery O2 Flow Rate FiO2 06/21/17 08:46 94 80 06/21/17 08:46 80 06/21/17 06:00 109 98/58 06/21/17 04:06 34 55 06/21/17 04:00 99.8 103 14 150/77 97 06/21/17 04:00 65 06/21/17 01:09 95 65 06/21/17 00:00 65 06/21/17 00:00 98.0 95 14 179/86 97 06/20/17 23:00 95 06/20/17 21:26 97 65 06/20/17 21:26 97 65 06/20/17 20:00 98.2 98 14 180/88 98 06/20/17 20:00 75 06/20/17 19:00 98 Mechanical Ventilator 75 06/20/17 18:00 113 163/82 06/20/17 16:15 70 06/20/17 16:04 96 70 06/20/17 16:04 96 70 06/20/17 16:00 70 06/20/17 16:00 98.1 80 14 163/82 93 06/20/17 15:15 70 06/20/17 15:00 77 06/20/17 12:26 96 60 06/20/17 12:26 94 60 06/20/17 12:00 60 06/20/17 12:00 98.1 91 16 179/82 94 06/21/17 07:00 Intake Total 95555 ml Output Total 82749.0 ml Balance 4856.0 ml Constitutional Vital Signs Date Time Temp Pulse Resp B/P Pulse Ox O2 Delivery O2 Flow Rate FiO2 06/21/17 08:46 94 80 06/21/17 08:46 80 06/21/17 06:00 109 98/58 06/21/17 04:06 34 55 06/21/17 04:00 99.8 103 14 150/77 97 06/21/17 04:00 65 06/21/17 01:09 95 65 06/21/17 00:00 65 06/21/17 00:00 98.0 95 14 179/86 97 06/20/17 23:00 95 06/20/17 21:26 97 65 06/20/17 21:26 97 65 06/20/17 20:00 98.2 98 14 180/88 98 06/20/17 20:00 75 06/20/17 19:00 98 Mechanical Ventilator 75 06/20/17 18:00 113 163/82 06/20/17 16:15 70 06/20/17 16:04 96 70 06/20/17 16:04 96 70 06/20/17 16:00 70 06/20/17 16:00 98.1 80 14 163/82 93 06/20/17 15:15 70 06/20/17 15:00 77 06/20/17 12:26 96 60 06/20/17 12:26 94 60 06/20/17 12:00 60 06/20/17 12:00 98.1 91 16 179/82 94 06/21/17 07:00 Intake Total 73976 ml Output Total 47614.0 ml Balance 4856.0 ml (Gena Nowak) Review of Systems/Exam Exam Intubated, sedatives turned off 30 min prior to this exam. No eye opening, not following commands, no purposeful movements. Right EVD in place at 10 cm H20, draining well bloody CSF. ICPs = 9. CN: pupils equal. Motor: no response to pain stimuli x 4 extremities. B/l plantar response silent Cerebellar: cannot assess due to clinical condition (Gena Nowak) Medications Current Medications Current Medications Medications (Trade) Dose Ordered Sig/Doris Route PRN Reason Start Time Stop Time Status Last Admin Dose Admin Morphine Sulfate (Morphine Inj) 2 mg Q2H PRN IV PAIN SCALE 6 TO 10 06/15/17 13:30 06/20/17 09:38 Ondansetron HCl (Zofran Inj) 4 mg Q6H PRN IV NAUSEA OR VOMITING 06/15/17 13:30 06/18/17 13:00 Miscellaneous Information 1 [id number] XX 06/15/17 13:30 Chlorhexidine Gluconate (Chlorhexidine 2% Cloth) Taper DAILY@04 TOP 06/16/17 04:00 06/12/18 03:59 06/20/17 06:10 Chlorhexidine Gluconate (Chlorhexidine 2% Cloth) 3 pack UNSCH PRN [facility] 06/15/17 13:30 Senna/Docusate Sodium (Prabha-Colace) 1 tab BID PO 06/15/17 21:00 06/21/17 09:00 Magnesium Hydroxide (Milk Of Magnesia Liq) 30 ml Q12H PRN PO MILD - MODERATE CONSTIPATION 06/15/17 13:30 Sennosides (Senokot) 17.2 mg Q12H PRN PO MODERATE - SEVERE CONSTIPATION 06/15/17 13:30 Bisacodyl (Dulcolax Supp) 10 mg DAILY PRN RECTAL SEVERE CONSITIPATION 06/15/17 13:30 Lactulose (Lactulose Liq) 30 ml DAILY PRN PO SEVERE CONSITIPATION 06/15/17 13:30 Labetalol HCl 10 mg 10 mg Q1H PRN IV PUSH SBP > 140, DBP > 90 06/15/17 13:30 Levetriacetam/ Sodium Chloride (Keppra Inj/NS Inj) 105 ml @ 420 mls/hr Q12HR IV 06/15/17 21:00 06/21/17 09:59 Terbutaline Sulfate (Brethine Inj) 1 mg UNSCH PRN SQ For Extravasation 06/15/17 18:45 Acetaminophen/ Hydrocodone Bitart 1 tab 1 tab Q4H PRN PO pain 1-5 06/16/17 11:30 06/16/17 22:48 Potassium Chloride 100 ml @ 50 mls/hr Q2H PRN IV For Potassium 2.8 - 3.2 mEq/L 06/18/17 05:30 06/20/17 00:53 Potassium Chloride (KCl 20 Meq Premix Inj) 100 ml @ 50 mls/hr Q2H PRN IV For Potassium 2.8 - 3.2 mEq/L 06/18/17 05:30 Potassium Bicarb/ Potassium Chloride 50 meq 50 meq UNSCH PRN PO For Potassium 3.3 - 3.5 mEq/L 06/18/17 05:30 06/20/17 17:59 Potassium Chloride 100 ml @ 25 mls/hr UNSCH PRN IV For Potassium 3.3 - 3.5 mEq/L 06/18/17 05:30 Potassium Chloride 100 ml @ 50 mls/hr Q2H PRN IV For Potassium 3.3 - 3.5 mEq/L 06/18/17 05:30 Magnesium Sulfate/ Sodium Chloride (Magnesium Sulfate Inj/NS Inj) 100 ml @ 50 mls/hr UNSCH PRN IV For Magnesium 0.9 - 1.1 mg/dL 06/18/17 05:30 Magnesium Oxide 800 mg 800 mg UNSCH PRN PO For Magnesium 1.2 - 1.6 mg/dL 06/18/17 05:30 Magnesium Sulfate/ Sodium Chloride (Magnesium Sulfate Inj/NS Inj) 100 ml @ 50 mls/hr UNSCH PRN IV For Magnesium 1.2 - 1.6 mg/dL 06/18/17 05:30 06/20/17 18:28 Potassium Phosphate 2000 mg 2,000 mg Q4H PRN PO For Phosphorus < 2.5 mg/dL 06/18/17 05:30 Sodium Phosphate/ Sodium Chloride (Sodium Phosphate Inj/NS 250 ml Inj) 250 ml @ 42 mls/hr UNSCH PRN IV For Phosphorus < 2.5 mg/dL 06/18/17 05:30 06/20/17 18:51 Potassium Phosphate 2000 mg 2,000 mg UNSCH PRN PO/TUBE SEE LABEL COMMENTS 06/18/17 05:30 Potassium Phosphate 30 mmol/ Sodium Chloride 260 ml @ 42 mls/hr UNSCH PRN IV SEE LABEL COMMENTS 06/18/17 05:30 Sodium Chloride 500 ml @ 30 mls/hr Q16H IV 06/18/17 14:00 Hold 06/21/17 05:43 Midazolam HCl 100 ml @ 0 mls/hr TITRATE IV 06/18/17 22:00 06/21/17 07:11 Vasopressin/ Dextrose (Pitressin Inj/ D5W 100 ml Inj) 100 ml @ 1.5 mls/hr Q24H IV 06/18/17 22:01 06/20/17 18:47 Protein (Beneprotein Powder) 1 pack TID G-TUBE 06/19/17 13:00 06/21/17 09:00 Acetaminophen 650 mg 650 mg Q4H PRN PO Temp > 100.5 06/19/17 12:45 Sodium Chloride (NS 1000 ml Inj) 1,000 ml @ 300 mls/hr Q3H20M IV 06/20/17 09:00 06/21/17 09:42 Nimodipine 30 mg 30 mg Q4HR PO 06/20/17 12:00 Hold 06/21/17 03:56 Fentanyl Citrate 250 ml @ 0 mls/hr TITRATE IV 06/20/17 10:15 Hold 06/21/17 01:35 Phenylephrine HCl 160 mg/Sodium Chloride 516 ml @ 0 mls/hr TITRATE IV 06/20/17 15:15 06/21/17 07:57 Piperacillin Sod/ Tazobactam Sod 100 ml @ 200 mls/hr Q6H IV 06/20/17 16:00 06/21/17 03:39 Dopamine HCl/ Dextrose (DOPamine INJ PREMIX) 500 ml @ 6.401 mls/ hr TITRATE IV 06/20/17 17:30 06/20/17 18:00 Terbutaline Sulfate 1 mg 1 mg UNSCH PRN SQ For Extravasation 06/20/17 17:30 Norepinephrine Bitartrate 4 mg/ Sodium Chloride 250 ml @ 0 mls/hr TITRATE IV 06/20/17 17:30 06/21/17 06:37 Milrinone Lactate 20 mg/Sodium Chloride 100 ml @ 12.8 mls/hr Q7H49M IV 06/21/17 05:55 06/21/17 07:12 Pharmacy Profile Note 0 ml @ 0 mls/hr UNSCH OTHER 06/21/17 06:00 Sodium Chloride (NS 1000 ml Inj) 1,000 ml @ 999 mls/hr Q1H1M IV 06/21/17 09:15 06/21/17 14:15 06/21/17 08:30 Hydrocortisone Sodium Succinate 100 mg 100 mg Q8HR IV PUSH 06/21/17 14:00 Levofloxacin/ Dextrose (Levaquin 750 Mg Premix Inj) 150 ml @ 100 mls/hr Q24H IV 06/21/17 10:00 Potassium Bicarb/ Potassium Chloride 25 meq 25 meq Q12HR PO 06/21/17 10:00 Calcium Chloride/ Sodium Chloride (Calcium Chloride Inj/NS Inj) 110 ml @ 110 mls/hr ONCE ONCE IV 06/21/17 11:00 06/21/17 11:59 Albumin Human (Albumin 25% Inj) 25 gm Q8H IV 06/21/17 10:15 UNV (Gena Nowak) Medical Decision Making MDM Remarks 57 y/o female with SAH from ruptured ACOM aneurysm s/p endovascular coiling 06/15 s/p placement of right ventriculostomy drain poss septic shock (Gena Nowak) Plan Plan Remarks cont EVD draining, with ICP monitoring cont Nimodipine for vasospasm prophylaxis f/u TCD nonchemical dvt prophylaxis in view of acute ICH, cont broad-sprectrum abx, f/u cultures, critical management dw Dr. Rosen, discussed with family in room (Gena Nowak) Attending Statement As above. Ventriculostomy catheter draining well. Continue neuro checks. Nimodipine, ventric, TCD, Keppra. She is in high doses of Levophed and vasopressin. Pulmonary. Poor Oxygenation on pressor control mode of ventilation. Will follow up chest xrays. Cont mechanical ventilation, aggressive pulmonary toilette, nasotracheal suction, and breathing treatments with nebulizers. Daily PT and OT Nutrition. Tube feedings on hold Renal. monitor closely urine output, BUN and creatinine Endocrine. Monitor serial Acu checks and SSI as needed in detail ID monitor for signs of infection Protonix for stress ulcer prophylaxis Wade hose and SCD's for DVT prophylaxis The exam, history, and the medical decision-making described in the above note were completed with the assistance of the mid-level provider. I reviewed and agree with the findings presented. I attest that I had a [id number] encounter with the patient on the same day, and personally performed and documented my assessment and findings in the medical record. (Micah Hoff MD) Gena Nowak Jun 21, 2017 10:20 Micah Hoff MD Jun 26, 2017 15:08
[2017-06-21] MEDS ORDERED: SODIUM BICARBONATE 8.4% INJ 50 ML ONE ×2 (10:28→12:06)
[2017-06-21 10:33] LABS: BLOOD GAS BASE EXCESS -10.3 mmol/L (-2-2); BLOOD GAS CARBOXYHEMOGLOBIN 0.8 % (0-4); BLOOD GAS HCO3 16 mmol/L (22-26); BLOOD GAS METHEMOGLOBIN 0.9 % (0-2); BLOOD GAS O2 HGB SATURATION 89 % (90-100); BLOOD GAS OXYGEN CONTENT 10.9 Vol % (12.0-20.0); BLOOD GAS PCO2 40 mmHg (38-42); BLOOD GAS PO2 66 mmHg (61-120); BLOOD GAS TOTAL HGB 8.7 G/DL (12.0-16.0); TEMP CORR TO 98.6
[2017-06-21 10:34] LABS: CRITICAL VALUE YES; OXYGEN DEVICE VENTILATOR
[2017-06-21 10:36] LABS: DRAW SITE ART LINE; FIO2 80 %; STAT YES; ULNAR PULSE PRESENT
--- NOTE | 2017-06-21 10:59 | ECHRPT ---
Indication: Cardiogenic shock CONCLUSIONS Normal left ventricular size. Wall thickness is normal. The left ventricular systolic function is hyperdynamic with an estimated ejection fraction in the ra nge of 65- 70%. No regional wall motion abnormalities are present. Trace mitral valve regurgitation. Trace aortic valve regurgitation. BP: / HR: Rhythm: Other MEASUREMENTS (Male / Female) Normal Values Technical Quality:Good 2D ECHO LV Diastolic Diameter PLAX 3.3 cm 4.2 - 5.9 / 3.9 - 5.3 cm LV Systolic Diameter PLAX 2.4 cm IVS Diastolic Thickness 0.9 cm 0.6 - 1.0 / 0.6 - 0.9 cm LVPW Diastolic Thickness 0.7 cm 0.6 - 1.0 / 0.6 - 0.9 cm LV Relative Wall Thickness 0.5 LA Systolic Diameter LX 3.1 cm 3.0 - 4.0 / 2.7 - 3.8 cm M-MODE Aortic Root Diameter MM 3.1 cm AV Cusp Separation MM 1.7 cm DOPPLER AV Peak Velocity 231.0 cm/s AV Peak Gradient 21.3 mmHg LVOT Peak Velocity 214.0 cm/s LVOT Peak Gradient 18.3 mmHg Mitral E Point Velocity 94.8 cm/s Mitral A Point Velocity 84.4 cm/s Mitral E to A Ratio 1.1 TR Peak Velocity 335.0 cm/s TR Peak Gradient 44.9 mmHg FINDINGS LEFT VENTRICLE Normal left ventricular size. Wall thickness is normal. The left ventricular systolic function is hyperdynamic with an estimated ejection fraction in the ra nge of 65- 70%. No regional wall motion abnormalities are present. RIGHT VENTRICLE Normal right ventricular size and systolic function. LEFT ATRIUM The left atrial size is normal. RIGHT ATRIUM The right atrial size is normal. ATRIAL SEPTUM Thickened atrial septum is noted with morphological features most consistent with a lipomatous atria l septum. AORTA The aortic root and proximal ascending aorta are normal in size on limited imaging. MITRAL VALVE Trace mitral valve regurgitation. AORTIC VALVE Aortic valve sclerosis is present. Trace aortic valve regurgitation. TRICUSPID VALVE Structurally normal tricuspid valve. No tricuspid valve stenosis or regurgitation. PULMONARY VALVE The pulmonary valve is not well visualized. VESSELS The inferior vena cava is normal in size. PERICARDIUM There is a trivial pericardial effusion present. A moderate left sided pleural effusion is noted. No hemodynamically significant echocardiographic features were observed (no pre-tamponade physiology). Anant Vivar MD, FACC (Electronically Signed) Final Date:21 June 2017 10:58
[2017-06-21] MEDS: ALBUMIN HUMAN 25% 25 GM/100 ML BAGP IV SCH ×2 (11:00→17:52)
[2017-06-21] MEDS ORDERED: CALCIUM CHLORIDE INJ 1 GM in SODIUM CHLORIDE 0.9% INJ 100 ML IV ONE (11:00)
[2017-06-21 11:51] LABS: BICARBONATE 25.5 MEQ/L (21.0-32.0); MAGNESIUM 1.3 MG/DL (1.5-2.5); TOTAL BILIRUBIN ADULT 0.7 MG/DL (0.2-1.0)
[2017-06-21 11:58] LABS: BLOOD GAS HCO3 18 mmol/L (22-26); BLOOD GAS METHEMOGLOBIN 0.7 % (0-2); BLOOD GAS O2 HGB SATURATION 87 % (90-100); BLOOD GAS OXYGEN CONTENT 10.7 Vol % (12.0-20.0); BLOOD GAS PCO2 37 mmHg (38-42); BLOOD GAS PO2 56 mmHg (61-120); BLOOD GAS TOTAL HGB 8.7 G/DL (12.0-16.0); CRITICAL VALUE YES; OXYGEN DEVICE VENTILATOR; TEMP CORR TO 98.6
[2017-06-21 12:00] LABS: DRAW SITE ART LINE; FIO2 80 %; STAT NO
[2017-06-21] MEDS: RESP: ALBUTEROL 2.5 MG/IPRATROPIUM 0.5 MG NEB (SCH) NEB ×4 (12:00→23:57)
[2017-06-21] MEDS: SODIUM BICARBONATE 8.4% INJ 150 MEQ in WATER STERILE FOR INJ 850 ML IV SCH ×3 (12:00→19:57)
[2017-06-21 12:05] LABS: POTASSIUM 2.1 MEQ/L (3.5-5.1)
[2017-06-21 12:06] LABS: CALCIUM-PROTEIN CORRECTED 6.6 MG/DL (8.5-10.1)
[2017-06-21] MEDS: HYDROCORTISONE SOD SUCCINATE 100 MG VIAL IV PUSH SCH ×2 (13:49→21:04)
[2017-06-21] MEDS ORDERED: DESMOPRESSIN ACETATE 4 MCG/ML VIAL IV ONE (15:00)
--- NOTE | 2017-06-21 15:10 | PD.ID.CON ---
History of Present Illness Service ID Consult Requested By Reason for Consult Evaluation and Mment of Septic Shock, HCAP. Primary Care Physician Unknown Diagnoses: History of Present Illness Most of the history was obtained by review of medical records as patient intubated and no family the room. Ms. Nevarez is a 57-year-old female with past medical history significant for hypertension who presented to the emergency department with complaints of headache and bilateral lower extremity weakness. Patient's reported to the ER physician the patient was normal on the day of admission and suddenly started having very bad headache followed by tingling bilateral lower extremity. She also had nausea on admission with no vomiting fever or chest pain. On June 15, 2017 patient was admitted to the hospital with diagnosis of acute subarachnoid hemorrhage due to aneurysm. This was coiled on June [address] Yen. Per review of records it appears that on June 16 patient continued to have severe headache was somnolent and had nausea and vomiting. Her intracranial pressure was monitored by transcranial ultrasound. On June 18 patient had sudden onset and of altered mental status. [place] that she was complaining of headache as turning in bed. A transcranial Doppler initially did not show any vasospasm. A stat CT of the head and CT angiogram was ordered. Patient underwent placement of a external ventricular device on June 20, 2017. Due to fevers patient was started on empiric Zosyn and vancomycin pending cultures. She also received stress dose hydrocortisone. It appears that on June 21 she developed fevers and tachycardia profound shock requiring 4 pressors to maintain systolic blood pressure. At the time of my evaluation patient is on norepinephrine, dopamine, Emil-Synephrine and vasopressin at max doses. Patient is currently being treated for diabetes insipidus. At the time of my evaluation patient is in the ICU on max dose 4 pressors. Urine output is adequate. Patient is off sedation but no meaningful response and therefore is being taken for a stat CT scan of the brain. Chest x-ray shows bilateral infiltrate. Dr. Rosen informs me that an ultrasound bedside is suggestive of consolidation. Infectious disease is consulted for evaluation and management of septic shock and possible healthcare associated pneumonia. Review of Systems ROS Limitations: Intubated, Altered Mental Status Past Family Social History Allergies: Coded Allergies: No Known Allergies (Verified , 02/25/16) Past Medical History Hypertension Past Surgical History Tubal ligation Coiling of the aneurysm this admission. External ventricular device placement. Reported Medications Reported Meds & Active Scripts Active Reported Lisinopril 5 Mg Tab 5 Mg PO DAILY Active Ordered Medications Current Medications Medications (Trade) Dose Ordered Sig/Doris Route Start Time Stop Time Status Last Admin (Morphine Inj) 2 mg Q2H PRN IV 06/15/17 13:30 06/20/17 09:38 (Zofran Inj) 4 mg Q6H PRN IV 06/15/17 13:30 06/18/17 13:00 Miscellaneous Information 1 Q361D XX 06/15/17 13:30 (Chlorhexidine 2% Cloth) Taper DAILY@04 TOP 06/16/17 04:00 06/12/18 03:59 06/20/17 06:10 (Chlorhexidine 2% Cloth) 3 pack UNSCH PRN TOP 06/15/17 13:30 (Prabha-Colace) 1 tab BID PO 06/15/17 21:00 06/21/17 09:00 (Milk Of Magnesia Liq) 30 ml Q12H PRN PO 06/15/17 13:30 (Senokot) 17.2 mg Q12H PRN PO 06/15/17 13:30 (Dulcolax Supp) 10 mg DAILY PRN RECTAL 06/15/17 13:30 (Lactulose Liq) 30 ml DAILY PRN PO 06/15/17 13:30 Labetalol HCl 10 mg 10 mg Q1H PRN IV PUSH 06/15/17 13:30 (Keppra Inj/NS Inj) 105 ml @ 420 mls/hr Q12HR IV 06/15/17 21:00 06/21/17 09:59 (Brethine Inj) 1 mg UNSCH PRN SQ 06/15/17 18:45 Acetaminophen/ Hydrocodone Bitart 1 tab 1 tab Q4H PRN PO 06/16/17 11:30 06/16/17 22:48 Potassium Chloride 100 ml @ 50 mls/hr Q2H PRN IV 06/18/17 05:30 06/20/17 00:53 (KCl 20 Meq Premix Inj) 100 ml @ 50 mls/hr Q2H PRN IV 06/18/17 05:30 Potassium Bicarb/ Potassium Chloride 50 meq 50 meq UNSCH PRN PO 06/18/17 05:30 06/20/17 17:59 Potassium Chloride 100 ml @ 25 mls/hr UNSCH PRN IV 06/18/17 05:30 Potassium Chloride 100 ml @ 50 mls/hr Q2H PRN IV 06/18/17 05:30 (Magnesium Sulfate Inj/NS Inj) 100 ml @ 50 mls/hr UNSCH PRN IV 06/18/17 05:30 Magnesium Oxide 800 mg 800 mg UNSCH PRN PO 06/18/17 05:30 (Magnesium Sulfate Inj/NS Inj) 100 ml @ 50 mls/hr UNSCH PRN IV 06/18/17 05:30 06/20/17 18:28 Potassium Phosphate 2000 mg 2,000 mg Q4H PRN PO 06/18/17 05:30 (Sodium Phosphate Inj/NS 250 ml Inj) 250 ml @ 42 mls/hr UNSCH PRN IV 06/18/17 05:30 06/20/17 18:51 Potassium Phosphate 2000 mg 2,000 mg UNSCH PRN PO/TUBE 06/18/17 05:30 Potassium Phosphate 30 mmol/ Sodium Chloride 260 ml @ 42 mls/hr UNSCH PRN IV 06/18/17 05:30 Sodium Chloride 500 ml @ 30 mls/hr Q16H IV 06/18/17 14:00 Hold 06/21/17 05:43 Midazolam HCl 100 ml @ 0 mls/hr TITRATE IV 06/18/17 22:00 06/21/17 07:11 (Pitressin Inj/ D5W 100 ml Inj) 100 ml @ 1.5 mls/hr Q24H IV 06/18/17 22:01 06/20/17 18:47 (Beneprotein Powder) 1 pack TID G-TUBE 06/19/17 13:00 06/21/17 17:11 Acetaminophen 650 mg 650 mg Q4H PRN PO 06/19/17 12:45 (NS 1000 ml Inj) 1,000 ml @ 200 mls/hr Q5H IV 06/20/17 09:00 06/21/17 14:27 Nimodipine 30 mg 30 mg Q4HR PO 06/20/17 12:00 Hold 06/21/17 03:56 Fentanyl Citrate 250 ml @ 0 mls/hr TITRATE IV 06/20/17 10:15 Hold 06/21/17 01:35 Phenylephrine HCl 160 mg/Sodium Chloride 516 ml @ 0 mls/hr TITRATE IV 06/20/17 15:15 06/21/17 07:57 (DOPamine INJ PREMIX) 500 ml @ 6.401 mls/ hr TITRATE IV 06/20/17 17:30 06/20/17 18:00 Terbutaline Sulfate 1 mg 1 mg UNSCH PRN SQ 06/20/17 17:30 Norepinephrine Bitartrate 4 mg/ Sodium Chloride 250 ml @ 0 mls/hr TITRATE IV 06/20/17 17:30 06/21/17 06:37 Milrinone Lactate 20 mg/Sodium Chloride 100 ml @ 12.8 mls/hr Q7H49M IV 06/21/17 05:55 06/21/17 07:12 (Vancomycin Consult Pharmacy) 0 ml @ 0 mls/hr UNSCH OTHER 06/21/17 06:00 Hydrocortisone Sodium Succinate 100 mg 100 mg Q8HR IV PUSH 06/21/17 14:00 06/21/17 13:49 (Levaquin 750 Mg Premix Inj) 150 ml @ 100 mls/hr Q24H IV 06/21/17 10:00 06/21/17 10:00 (K-Lyte Cl Eff) 25 meq Q12HR PO 06/21/17 10:00 06/21/17 10:00 Albumin Human 25 gm 25 gm Q8H IV 06/21/17 11:00 06/21/17 11:00 Sodium Bicarbonate 150 meq/Sterile Water 1,000 ml @ 150 mls/hr Q6H40M IV 06/21/17 12:00 06/21/17 17:11 Meropenem 1000 mg/ Sodium Chloride 100 ml @ 200 mls/hr Q8H IV 06/21/17 17:00 (Vancomycin Inj/ NS 250 ml Inj) 250 ml @ 250 mls/hr Q18H IV 06/22/17 04:00 Miscellaneous Information SPECIFIC LAB TO BE [facility]... ONCE ONCE .XX 06/23/17 15:45 06/23/17 15:46 Potassium Chloride 100 ml @ 25 mls/hr Q4H IV 06/21/17 16:45 06/22/17 00:44 UNV (Magnesium Sulfate 1 Gm Premix) 100 ml @ 100 mls/hr Q1H IV 06/21/17 16:45 06/21/17 18:44 UNV (Mag-Ox) 400 mg Q8HR PO 06/21/17 22:00 UNV (Ddavp Inj) 1 mcg Q12HR IV PUSH 06/21/17 21:00 UNV Family History Could not be obtained. Social History Could not be obtained. Physical Exam Vital Signs Vital Signs Date Time Temp Pulse Resp B/P Pulse Ox O2 Delivery O2 Flow Rate FiO2 06/21/17 12:16 92 80 06/21/17 08:46 94 80 06/21/17 08:46 80 06/21/17 06:00 109 98/58 06/21/17 04:06 34 55 06/21/17 04:00 99.8 103 14 150/77 97 06/21/17 04:00 65 06/21/17 01:09 95 65 06/21/17 00:00 65 06/21/17 00:00 98.0 95 14 179/86 97 06/20/17 23:00 95 06/20/17 21:26 97 65 06/20/17 21:26 97 65 06/20/17 20:00 98.2 98 14 180/88 98 06/20/17 20:00 75 06/20/17 19:00 98 Mechanical Ventilator 75 06/20/17 18:00 113 163/82 06/20/17 16:15 70 06/20/17 16:04 96 70 06/20/17 16:04 96 70 06/20/17 16:00 70 06/20/17 16:00 98.1 80 14 163/82 93 06/20/17 15:15 70 Physical Exam GENERAL: This is a well-nourished, well-developed patient, in no apparent distress. SKIN: No rashes, ecchymoses or lesions. Cool and dry. HEAD: EVD in place with no e.o infection. EYES:. No scleral icterus. No injection or drainage. ENT: Nose without bleeding, purulent drainage or septal hematoma. Throat without erythema, tonsillar hypertrophy or exudate. Uvula midline. Airway patent. NECK: Trachea midline. Supple, nontender, no meningeal signs. CARDIOVASCULAR: Regular rate and rhythm without murmurs, gallops, or rubs. RESPIRATORY: Clear to auscultation. Breath sounds equal bilaterally. No wheezes , rales, or rhonchi. GASTROINTESTINAL: Abdomen soft, non-tender, nondistended. MUSCULOSKELETAL: Extremities without clubbing, cyanosis, or edema. NEUROLOGICAL: Off sedation with no meaningful response. No response to threat. Psych could not be assessed IV line sites with no evidence of infection. Laboratory Laboratory Tests Test 06/20/17 06/20/17 06/21/17 06/21/17 15:13 21:00 02:30 03:00 Sodium Level 148 147 150 Potassium Level 2.4 3.7 2.7 Phosphorus Level 2.1 Magnesium Level 1.5 Chloride Level 118 115 Carbon Dioxide Level 22.4 23.3 Anion Gap 7 12 Blood Urea Nitrogen 4 5 Creatinine 0.34 0.32 Estimat Glomerular Filtration 197 211 Rate Random Glucose 149 143 Calcium Level 7.1 7.5 Protein Corrected Calcium 7.8 Total Protein 5.7 Serum Osmolality 299 White Blood Count 19.9 Red Blood Count 3.20 Hemoglobin 9.9 Hematocrit 29.8 Mean Corpuscular Volume 93.1 Mean Corpuscular Hemoglobin 31.0 Mean Corpuscular Hemoglobin 33.2 Concent Red Cell Distribution Width 13.8 Platelet Count 248 Mean Platelet Volume 8.3 Neutrophils (%) (Auto) 86.1 Lymphocytes (%) (Auto) 7.8 Monocytes (%) (Auto) 5.3 Eosinophils (%) (Auto) 0.6 Basophils (%) (Auto) 0.2 Neutrophils # (Auto) 17.1 Lymphocytes # (Auto) 1.5 Monocytes # (Auto) 1.1 Eosinophils # (Auto) 0.1 Basophils # (Auto) 0.0 CBC Comment DIFF FINAL Differential Comment Test 06/21/17 06/21/17 06/21/17 10:14 10:45 11:40 Blood Gas Puncture Site ART LINE ART LINE Blood Gas Patient Temperature 98.6 98.6 Blood Gas HCO3 16 18 Blood Gas Base Excess -10.3 -7.0 Blood Gas Oxygen Saturation 89 87 Arterial Blood pH 7.22 7.32 Arterial Blood Partial 40 37 Pressure CO2 Arterial Blood Partial 66 56 Pressure O2 Arterial Blood Oxygen Content 10.9 10.7 Arterial Blood 0.8 1.0 Carboxyhemoglobin Arterial Blood Methemoglobin 0.9 0.7 Blood Gas Hemoglobin 8.7 8.7 Oxygen Delivery Device VENTILATOR VENTILATOR Blood Gas Ventilator Setting Blood Gas Inspired Oxygen 80 80 Urine Specific [place] 1.008 Urine Osmolality 383 Urine Random Sodium 163 Sodium Level 155 Potassium Level 2.1 Chloride Level 122 Carbon Dioxide Level 25.5 Anion Gap 8 Blood Urea Nitrogen 3 Creatinine 0.34 Estimat Glomerular Filtration 197 Rate Random Glucose 142 Serum Osmolality 311 Lactic Acid Level 2.0 Calcium Level 5.6 Protein Corrected Calcium 6.6 Magnesium Level 1.3 Total Bilirubin 0.7 Aspartate Amino Transf 12 (AST/SGOT) Alanine Aminotransferase 24 (ALT/SGPT) Alkaline Phosphatase 62 Troponin I 0.11 Total Protein 4.7 Albumin 2.1 Random Cortisol 228.5 Date/Time Procedure Status Source Growth 06/21/17 12:24 Aerobic Blood Culture Received Blood Peripheral Pending 06/21/17 12:24 Anaerobic Blood Culture Received Blood Peripheral Pending 06/21/17 10:45 Urine Culture Received Urine Catheterized Urine Pending 06/21/17 10:45 Gram Stain Received Sputum Endotracheal Pending 06/21/17 10:45 Sputum Culture Received Sputum Endotracheal Pending 06/20/17 18:10 Gram Stain - Final Resulted Sputum Endotracheal 06/20/17 18:10 Sputum Culture Resulted Sputum Endotracheal Pending Result Diagram: 06/21/17 0300 06/21/17 1045 Imaging Last Impressions Chest X-Ray 06/21/17 0600 Signed Impressions: Service Date/Time: Wednesday, June 21, 2017 03:58 - CONCLUSION: Bilateral pleural effusions with associated atelectasis and/or consolidation has slightly increased from the prior study. Silas Ortez MD Transcranial Doppler Study Complete 06/21/17 0000 Signed Impressions: Service Date/Time: Wednesday, June 21, 2017 07:50 - CONCLUSION: No significant vasospasm as yet. Flow remains in both anterior cerebral arteries. Jose E Méndez MD FACR Head CT 06/21/17 0000 Signed Impressions: Service Date/Time: Wednesday, June 21, 2017 15:49 - CONCLUSION: Evolving intracranial hemorrhage. Nothing to suggest new hemorrhage. Silas Mtz MD Head CTA 06/20/17 0600 Signed Impressions: Service Date/Time: Tuesday, June 20, 2017 07:52 - CONCLUSION: No evidence for any significant spasm. Sascha Montez MD Neck CTA 06/15/17 1125 Signed Impressions: Service Date/Time: Thursday, June 15, 2017 12:10 - CONCLUSION: 1. No stenosis of either carotid artery. 2. No aneurysm seen. 3. Normal variants of the aortic arch. Pascual Sanderson MD Cerebral Arteriogram 06/15/17 0000 Signed Impressions: Service Date/Time: Thursday, June 15, 2017 13:11 - CONCLUSION: 1. 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 2. No significant vasospasm seen on the left. 3. I spoke with Dr. Yen immediately following the procedure. Emile Walker Jr., MD Assessment and Plan Assessment and Plan Septic Shock on max dose pressors (fever, leucocytosis, shock, source: Pneumonia ) Aspiration Pneumonia on admission. Possible HCAP. Acute resp failure on vent Acute encephalopathy: Acute SAH, metabolic, infection. Acute SAH s/p aneurysm coiling. Possible DI m'ment per [facility] . Recs: DC Zosyn IV Start Meropenem IV (ASP: worsening septic shock, ? MDRO) Continue Vanco IV (target trough 15-20 for Pneumonia) Continue Levaquin IV (covers atypical and other resistant GNR) Follow cultures Follow clinically. Critically ill. d/w Dr.John LUTHER plan. Claire Guerra MD Jun 21, 2017 15:10
[2017-06-21] MEDS ORDERED: MISCELLANEOUS PHARMACY INFORMATION XX PRN (15:15)
[2017-06-21] MEDS ORDERED: ASP: Other exception documentation: ( ) PRN (15:15)
--- NOTE | 2017-06-21 16:11 | RADRPT ---
EXAM DATE/TIME: 06/21/2017 15:49 [facility] COMPARISON: CT BRAIN W/O CONTRAST, June 16, 2017, 12:10. INDICATIONS : Neurological change; evaluate hemorrhage. RADIATION DOSE: 69.15 CTDIvol (mGy) MEDICAL HISTORY : Hypertension. Aneurysm, intracranial. SURGICAL HISTORY : Brain coil. ENCOUNTER: Initial ACUITY: 1 day PAIN SCALE: Non-responsive LOCATION: cranial TECHNIQUE: Multiple contiguous axial images were obtained of the head. Using automated exposure control and adj ustment of the mA and/or kV according to patient size, radiation dose was kept as low as reasonably a chievable to obtain optimal diagnostic quality images. DICOM format image data is available electro nically for review and comparison. FINDINGS: Diffuse subarachnoid blood is again seen, involving. Intraventricular blood is present. There is a sm all parenchymal hemorrhage in the left orbitofrontal region with mild evolving surrounding edema. The re has been interval insertion of a right frontal ventriculostomy which terminates in the body of the right lateral ventricle. Ventricles are slightly decompressed compared to prior. There is nothing to suggest new hemorrhage. Nothing to otherwise suggest acute infarction. CONCLUSION: Evolving intracranial hemorrhage. Nothing to suggest new hemorrhage. Silas Mtz MD on June 21, 2017 at 16:05 Board Certified Radiologist. This report was verified electronically.
[2017-06-21] MEDS: MEROPENEM INJ 1,000 MG in SODIUM CHLORIDE 0.9% INJ 100 ML IV SCH (17:00)
[2017-06-21] MEDS: POTASSIUM CHLOR 40 MEQ PREMIX 100 ML IV SCH ×2 (17:52→22:02)
[2017-06-21] MEDS: MAGNESIUM SULFATE 1 GM PREMIX 100 ML IV SCH ×2 (18:00→19:00)
[2017-06-21 19:24] LABS: BICARBONATE 26.2 MEQ/L (21.0-32.0); CALCIUM-PROTEIN CORRECTED 7.6 MG/DL (8.5-10.1); MAGNESIUM 1.6 MG/DL (1.5-2.5); TOTAL BILIRUBIN ADULT 0.9 MG/DL (0.2-1.0)
[2017-06-21 19:28] LABS: POTASSIUM 2.3 MEQ/L (3.5-5.1)
[2017-06-21] MEDS: NOREPINEPHRINE INJ 8 MG in SODIUM CHLORID 0.9% 500 ML INJ 492 ML IV SCH (20:11)
[2017-06-21] MEDS ORDERED: ALTEPLASE RECOMBINANT 2 MG VIAL IV FLUSH PRN (21:15)
[2017-06-21 21:38] LABS: BLOOD GAS BASE EXCESS 1.3 mmol/L (-2-2); BLOOD GAS CARBOXYHEMOGLOBIN 1.2 % (0-4); BLOOD GAS HCO3 24 mmol/L (22-26); BLOOD GAS METHEMOGLOBIN 0.7 % (0-2); BLOOD GAS O2 HGB SATURATION 93 % (90-100); BLOOD GAS OXYGEN CONTENT 11.1 Vol % (12.0-20.0); BLOOD GAS PCO2 31 mmHg (38-42); BLOOD GAS PO2 62 mmHg (61-120); BLOOD GAS TOTAL HGB 8.5 G/DL (12.0-16.0); TEMP CORR TO 98.6
[2017-06-21 21:39] LABS: CRITICAL VALUE YES
[2017-06-21 21:40] LABS: OXYGEN DEVICE VENTILATOR; VENT SETTINGS PRESSURE AC
[2017-06-21 21:41] LABS: DRAW SITE ART LINE; FIO2 80 %; STAT NO; ULNAR PULSE PRESENT
[2017-06-21 21:46] LABS: AUTOMATED NEUTROPHIL # 18.5 TH/MM3 (1.8-7.7); BASOPHIL % 0.1 % (0.0-2.0); HEMATOCRIT 25.2 % (35.0-46.0); HEMO FLAGS DIFF FINAL; LYMPH % 3.5 % (9.0-44.0); LYMPHOCYTE # 0.7 TH/MM3 (1.0-4.8); MEAN CORPUSCULAR HEMOGLOBIN 30.8 PG (27.0-34.0); MEAN CORPUSCULAR HGB CONC 33.1 % (32.0-36.0); NEUT % 91.4 % (16.0-70.0); PLATELET COUNT 226 TH/MM3 (150-450); RED CELL DISTRIBUTION WIDTH 13.6 % (11.6-17.2); WHITE BLOOD COUNT 20.2 TH/MM3 (4.0-11.0)
[2017-06-21] MEDS: DESMOPRESSIN ACETATE 4 MCG/ML VIAL IV PUSH SCH (22:01)
[2017-06-21] MEDS: MAGNESIUM OXIDE 400 MG TAB PO SCH (22:02)
[2017-06-21] MEDS: VASOPRESSIN INJ 40 UNITS in DEXTROSE 5% IN WATER 100ML INJ 98 ML IV SCH ×2 (22:02)
[2017-06-22] VITALS (19 sets, daily range): BP systolic 151–184; BP diastolic 80–96; PULSE 59–109; RESP 15–20; TEMP 98.2–99.1; O2SAT 60–100
[2017-06-22 00:09] LABS: BICARBONATE 26.7 MEQ/L (21.0-32.0); CALCIUM-PROTEIN CORRECTED 7.7 MG/DL (8.5-10.1); MAGNESIUM 1.8 MG/DL (1.5-2.5); POTASSIUM 3.1 MEQ/L (3.5-5.1); TOTAL BILIRUBIN ADULT 0.8 MG/DL (0.2-1.0)
[2017-06-22] MEDS: NOREPINEPHRINE INJ 8 MG in SODIUM CHLORID 0.9% 500 ML INJ 492 ML IV SCH ×2 (00:23→20:31)
[2017-06-22] MEDS: SODIUM CHLOR 0.9% 1000 ML INJ 1,000 ML IV SCH ×5 (00:24→20:27)
[2017-06-22] MEDS: MEROPENEM INJ 1,000 MG in SODIUM CHLORIDE 0.9% INJ 100 ML IV SCH ×3 (00:26→17:37)
[2017-06-22] MEDS: 3% SALINE INJ 500 ML IV SCH ×2 (01:25→14:29)
[2017-06-22] MEDS: POTASSIUM CHLOR 40 MEQ PREMIX 100 ML IV PRN ×5 (01:34→22:50)
[2017-06-22 01:58] LABS: BLOOD GAS BASE EXCESS 0.1 mmol/L (-2-2); BLOOD GAS HCO3 25 mmol/L (22-26); BLOOD GAS METHEMOGLOBIN 0.9 % (0-2); BLOOD GAS O2 HGB SATURATION 88 % (90-100); BLOOD GAS OXYGEN CONTENT 10.6 Vol % (12.0-20.0); BLOOD GAS PCO2 43 mmHg (38-42); BLOOD GAS PO2 57 mmHg (61-120); BLOOD GAS TOTAL HGB 8.6 G/DL (12.0-16.0); TEMP CORR TO 98.6
[2017-06-22 01:59] LABS: CRITICAL VALUE YES; OXYGEN DEVICE VENTILATOR
[2017-06-22 02:00] LABS: DRAW SITE ART LINE; FIO2 100 %; STAT YES; VENT SETTINGS PC/AC
[2017-06-22] MEDS: ALBUMIN HUMAN 25% 25 GM/100 ML BAGP IV SCH ×3 (02:02→18:19)
[2017-06-22 03:15] LABS: BLOOD GAS BASE EXCESS -0.2 mmol/L (-2-2); BLOOD GAS CARBOXYHEMOGLOBIN 1.2 % (0-4); BLOOD GAS HCO3 24 mmol/L (22-26); BLOOD GAS METHEMOGLOBIN 0.8 % (0-2); BLOOD GAS O2 HGB SATURATION 93 % (90-100); BLOOD GAS OXYGEN CONTENT 9.8 Vol % (12.0-20.0); BLOOD GAS PCO2 36 mmHg (38-42); BLOOD GAS PO2 67 mmHg (61-120); BLOOD GAS TOTAL HGB 7.4 G/DL (12.0-16.0); CRITICAL VALUE NO; OXYGEN DEVICE VENTILATOR; TEMP CORR TO 98.6
[2017-06-22 03:16] LABS: DRAW SITE ART LINE; FIO2 100 %; STAT NO; ULNAR PULSE PRESENT; VENT SETTINGS APRV/BIPHASIC
[2017-06-22] MEDS: RESP: ALBUTEROL 2.5 MG/IPRATROPIUM 0.5 MG NEB (SCH) NEB ×5 (03:42→23:36)
[2017-06-22] MEDS ORDERED: VANCOMYCIN 1,000 MG/NS 250 ML IV SCH ×2 (04:00)
[2017-06-22] MEDS: CHLORHEXIDINE GLUCONATE 2 % 1 PACK (2 CLOTHS) TOP SCH (04:00)
[2017-06-22] MEDS: MILRINONE INJ 20 MG in SODIUM CHLORIDE 0.9% INJ 80 ML IV SCH ×3 (04:04→20:31)
[2017-06-22] MEDS: fentaNYL 2,500 MCG/NS 250 ML IV SCH ×3 (04:28→21:02)
[2017-06-22] MEDS: MIDAZOLAM 100 MG/ML INJ 100 ML IV SCH ×3 (04:29→21:01)
[2017-06-22] MEDS: HYDROCORTISONE SOD SUCCINATE 100 MG VIAL IV PUSH SCH ×3 (05:32→21:02)
[2017-06-22] MEDS: PHENYLEPHRINE INJ 160 MG in SODIUM CHLORID 0.9% 500 ML INJ 500 ML IV SCH (05:32)
[2017-06-22] MEDS: VASOPRESSIN INJ 40 UNITS in DEXTROSE 5% IN WATER 100ML INJ 98 ML IV SCH ×4 (05:32→21:18)
[2017-06-22] MEDS: MAGNESIUM OXIDE 400 MG TAB PO SCH ×3 (05:33→21:02)
[2017-06-22 05:35] LABS: AUTOMATED NEUTROPHIL # 14.9 TH/MM3 (1.8-7.7); BASOPHIL % 0.2 % (0.0-2.0); LYMPH % 7.4 % (9.0-44.0); LYMPHOCYTE # 1.3 TH/MM3 (1.0-4.8); MEAN CELL VOLUME 92.6 FL (80.0-100.0); MEAN CORPUSCULAR HEMOGLOBIN 30.8 PG (27.0-34.0); MEAN CORPUSCULAR HGB CONC 33.3 % (32.0-36.0); MONO % 5.5 % (0.0-8.0); NEUT % 86.9 % (16.0-70.0); PLATELET COUNT 205 TH/MM3 (150-450); RED BLOOD COUNT 2.21 MIL/MM3 (4.00-5.30); RED CELL DISTRIBUTION WIDTH 13.7 % (11.6-17.2); WHITE BLOOD COUNT 17.1 TH/MM3 (4.0-11.0)
[2017-06-22 05:47] LABS: HEMO FLAGS DIFF FINAL
[2017-06-22 05:49] LABS: HEMATOCRIT 20.5 % (35.0-46.0)
[2017-06-22 06:06] LABS: BLOOD GAS BASE EXCESS -0.9 mmol/L (-2-2); BLOOD GAS CARBOXYHEMOGLOBIN 0.9 % (0-4); BLOOD GAS HCO3 23 mmol/L (22-26); BLOOD GAS METHEMOGLOBIN 0.7 % (0-2); BLOOD GAS O2 HGB SATURATION 87 % (90-100); BLOOD GAS OXYGEN CONTENT 12.5 Vol % (12.0-20.0); BLOOD GAS PCO2 39 mmHg (38-42); BLOOD GAS PO2 55 mmHg (61-120); BLOOD GAS TOTAL HGB 10.2 G/DL (12.0-16.0); TEMP CORR TO 98.6
[2017-06-22 06:08] LABS: CRITICAL VALUE YES; OXYGEN DEVICE VENTILATOR
[2017-06-22 06:10] LABS: DRAW SITE ART LINE; FIO2 100 %; STAT YES; VENT SETTINGS BIPHASIC
--- NOTE | 2017-06-22 06:28 | RADRPT ---
EXAM DATE/TIME: 06/22/2017 05:36 [facility] COMPARISON: CHEST SINGLE AP, June 21, 2017, 3:58. INDICATIONS : Respiratory distress. MEDICAL HISTORY : Hypertension. SURGICAL HISTORY : None. ENCOUNTER: Subsequent ACUITY: 1 week PAIN SCORE: Non-responsive. LOCATION: Bilateral chest FINDINGS: Portable AP view of the chest demonstrates a normal-sized cardiac silhouette. ETT, nasogastric tube, and right IJ line remain present. There is severe space consolidation in the left midlung zone with s mall bibasilar pleural-parenchymal opacities. No pneumothorax is visualized. CONCLUSION: Stable chest x-ray with severe left midlung zone airspace consolidation and small bilateral pleural e ffusions. Silas Ortez MD on June 22, 2017 at 6:26 Board Certified Radiologist. This report was verified electronically.
[2017-06-22] MEDS ORDERED: FUROSEMIDE 40 MG/4 ML VIAL ONE (06:50)
[2017-06-22] MEDS ORDERED: ROCURONIUM INJ 50 MG/5 ML VIAL ONE (06:53)
[2017-06-22] MEDS ORDERED: BUMETANIDE INJ 1 MG/4 ML VIAL IV PUSH SCH (07:00)
[2017-06-22] MEDS ORDERED: ROCURONIUM INJ 50 MG/5 ML VIAL IV PUSH ONE (07:45)
[2017-06-22] MEDS ORDERED: FUROSEMIDE 100 MG/10 ML VIAL IV PUSH ONE (07:45)
[2017-06-22 07:46] LABS: BLOOD GAS BASE EXCESS 0.1 mmol/L (-2-2); BLOOD GAS CARBOXYHEMOGLOBIN 1.3 % (0-4); BLOOD GAS HCO3 23 mmol/L (22-26); BLOOD GAS METHEMOGLOBIN 0.6 % (0-2); BLOOD GAS O2 HGB SATURATION 88 % (90-100); BLOOD GAS OXYGEN CONTENT 9.9 Vol % (12.0-20.0); BLOOD GAS PCO2 28 mmHg (38-42); BLOOD GAS PO2 49 mmHg (61-120); CRITICAL VALUE YES; OXYGEN DEVICE VENTILATOR; TEMP CORR TO 98.6
[2017-06-22 07:47] LABS: DRAW SITE ART LINE; FIO2 100 %; STAT NO
[2017-06-22] MEDS: SODIUM BICARBONATE 8.4% INJ 150 MEQ in WATER STERILE FOR INJ 850 ML IV SCH ×3 (08:00→20:32)
[2017-06-22 08:20] LABS: MEAN CORPUSCULAR HGB CONC 36.6 % (32.0-36.0)
--- NOTE | 2017-06-22 08:26 | HHI.CCPN ---
Subjective Remarks/Hospital Course 06/15: Acute SAH with a-com aneurysm. Coiled 06/15. 06/16: BP control acceptable. Severe headache, but she gets somnolent after minimal analgesia. Some nausea and vomiting. 06/17: BP control good. Mild permissive hypertension 150s. Persistent headache and anxiety. Patient requests nicoderm patch but I am concerned about promoting unnecessary vasospasm. 06/18: Sudden onset altered mental status. Patient complaining of head ache and turning in bed, somewhat decreased level of consciousness. Transcranial Doppler did not show vasospasm today morning. Continue permissive hypertension. Stat CT of the head and CT angiogram ordered and discussed with interventional radiology Dr. Sanderson. (Dr. Yen in [place]) 06/19: Blood pressure in good range.TCDs today. Start TFs. 06/20: TCD 06/19 showed increase in the degree of vasospasm on the left, and decrease in degree of vasospasm on the right since the prior exam from one day ago. Getting CTA brain today. Remains on vasopressin and Emil-Synephrine to maintain systolic blood pressure 160-180. EVD drained 182 mL in 24 hours, ICP well controlled. UO 7L in 24 hours 06/21: Remains extremely critical. Profound shock, on 4 pressors to maintain SBP >110. On norepinephrine, dopamine, Emil-Synephrine and vasopressin. Unable to obtain target systolic blood pressure more than 160. Patient was started on Zosyn yesterday added vancomycin today. Teixeira cultures sent stress dose hydrocortisone started. Start Ben-trac monitoring. UO >12 L in 24 hours, osmolality studies not consistent with DI joseph though partial DI is possible. Check urine sp gravity and osm again. and Start scheduled DDAVP is suggestive of DI. Family updated in detail 06/22: Overnight developed worsening hypoxemia, refractory to conventional ventilator modes. With PEEP of 12 and FiO2 100% saturation remained in low 80s. Dr. Rodriguez placed on BiLevel (APPV) with improvement in oxygen saturation 90 % and no CO2 retention. I evaluated the patient with bedside ultrasound which showed moderate to large bilateral pleural effusions. Changed mode to PCV to avoid pneumothorax while placing chest tube. After this I placed 10 Georgian pigtail catheter on the right side with immediate drainage of total 900 mL clear pleural fluid. Postprocedure oxygen saturation improved to 100% immediately, I was able to reduce the Insp pressure to 30. I will proceed with L pigtail chest tube after CXR confirms no complications Objective Vital Signs Date Time Temp Pulse Resp B/P Pulse Ox O2 Delivery O2 Flow Rate FiO2 06/22/17 06:00 109 169/90 06/22/17 04:00 100 06/22/17 04:00 98.7 20 96 06/21/17 19:00 Mechanical Ventilator Intake and Output 06/21/17 06/21/17 06/22/17 08:00 16:00 00:00 Intake Total 4581 ml 5468 ml 6690 ml Output Total 3800.0 ml 4098 ml 5810 ml Balance 781.0 ml 1370 ml 880 ml Result Diagram: 06/22/17 0510 06/22/17 0510 Other Results Laboratory Tests Test 06/21/17 06/21/17 06/21/17 06/22/17 10:14 11:40 21:25 01:44 Blood Gas Puncture Site ART LINE ART LINE ART LINE ART LINE Blood Gas Patient Temperature 98.6 98.6 98.6 98.6 Blood Gas HCO3 16 mmol/L 18 mmol/L 24 mmol/L 25 mmol/L (22-26) (22-26) (22-26) (22-26) Blood Gas Base Excess -10.3 mmol/L -7.0 mmol/L 1.3 mmol/L 0.1 mmol/L (-2-2) (-2-2) (-2-2) (-2-2) Blood Gas Oxygen Saturation 89 % (90-100) 87 % (90-100) 93 % (90-100) 88 % (90- 100) Arterial Blood pH 7.22 7.32 7.51 7.38 (7.380-7.420) (7.380-7.420) (7.380-7.420) (7.380-7.420) Arterial Blood Partial 40 mmHg (38-42) 37 mmHg (38-42) 31 mmHg (38-42) 43 mmHg ( 38-42) Pressure CO2 Arterial Blood Partial 66 mmHg 56 mmHg 62 mmHg 57 mmHg Pressure O2 (61-120) (61-120) (61-120) (61-120) Arterial Blood Oxygen Content 10.9 Vol % 10.7 Vol % 11.1 Vol % 10.6 Vol % (12.0-20.0) (12.0-20.0) (12.0-20.0) (12.0-20.0) Arterial Blood 0.8 % (0-4) 1.0 % (0-4) 1.2 % (0-4) 1.0 % (0-4) Carboxyhemoglobin Arterial Blood Methemoglobin 0.9 % (0-2) 0.7 % (0-2) 0.7 % (0-2) 0.9 % (0-2) Blood Gas Hemoglobin 8.7 G/DL 8.7 G/DL 8.5 G/DL 8.6 G/DL (12.0-16.0) (12.0-16.0) (12.0-16.0) (12.0-16.0) Oxygen Delivery Device VENTILATOR VENTILATOR VENTILATOR VENTILATOR Blood Gas Ventilator Setting PRESSURE AC PC/AC Blood Gas Inspired Oxygen 80 % 80 % 80 % 100 % Test 06/22/17 06/22/17 06/22/17 03:01 05:44 07:31 Blood Gas Puncture Site ART LINE ART LINE ART LINE Blood Gas Patient Temperature 98.6 98.6 98.6 Blood Gas HCO3 24 mmol/L 23 mmol/L 23 mmol/L (22-26) (22-26) (22-26) Blood Gas Base Excess -0.2 mmol/L -0.9 mmol/L 0.1 mmol/L (-2-2) (-2-2) (-2-2) Blood Gas Oxygen Saturation 93 % (90-100) 87 % (90-100) 88 % (90-100) Arterial Blood pH 7.44 7.39 7.52 (7.380-7.420) (7.380-7.420) (7.380-7.420) Arterial Blood Partial 36 mmHg (38-42) 39 mmHg (38-42) 28 mmHg (38-42) Pressure CO2 Arterial Blood Partial 67 mmHg 55 mmHg 49 mmHg Pressure O2 (61-120) (61-120) (61-120) Arterial Blood Oxygen Content 9.8 Vol % 12.5 Vol % 9.9 Vol % (12.0-20.0) (12.0-20.0) (12.0-20.0) Arterial Blood 1.2 % (0-4) 0.9 % (0-4) 1.3 % (0-4) Carboxyhemoglobin Arterial Blood Methemoglobin 0.8 % (0-2) 0.7 % (0-2) 0.6 % (0-2) Blood Gas Hemoglobin 7.4 G/DL 10.2 G/DL 8.0 G/DL (12.0-16.0) (12.0-16.0) (12.0-16.0) Oxygen Delivery Device VENTILATOR VENTILATOR VENTILATOR Blood Gas Ventilator Setting APRV/BIPHASIC BIPHASIC Blood Gas Inspired Oxygen 100 % 100 % 100 % Objective Remarks Gen: Sedated, ventilated, middle age woman. Critically ill on three pressors Head: Atraumatic. EVD in place, 325 ml in 24 hours Eyes: DORYS, Corneal + Neck: Supple, orally intubated. Lungs: Air entry diminished bilaterally with coarse breath sounds. Moderate to large bilateral pleural effusions Heart: RRR, no m,r. No JVD. Abdomen: Soft, nondistended, no guarding. BS active. Extremities: Cold mottled extremities from high-dose vasopressors Neuro: Pupils are equal reactive. Positive cough and gag. 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 - Transcranial Dopplers showing vasospasm on the left side 06/19/17, stat CTA no significant vasospasm - CT head on 06/18/17 had shown left frontal vasogenic edema and intraparenchymal hemorrhage, rpt 06/21 unchanged - Continue vasopressors to keep systolic blood pressure 160-180 - Resume Nimotop as BP has improved - Keep sodium 150-155, keep magnesium more than 2. Avoid hypoxia hypercarbia - Continue daily transcranial dopplers. - Serum osmolality, urine osmolality, urine specific gravity not consistent with DI-may have partial DI - received 2 doses of DDAVP yesterday CVS: Severe shock/Septic and neurogenic - Currently on 3 pressors due to severe shock, and to maintain SBP 160-180 - Echo EF 65-70% - Remains on Levophed, vasopressin and Emil-Synephrine - DC maintenance IV fluids and bicarbonate infusion due to severe hypoxemia - Nimodipine to be resumed today - Continue Ben Trac monitoring RESP: Acute hypoxemic respiratory failure Severe refractory hypoxemia Bilateral pleural effusion HCAP - Intubated for airway protection 06/18/17 - Placed on bilevel ventilation 06/22 a.m. due to inability to oxygenate adequately on maximum conventional ventilation - I have placed back on PCV and placed R pigtail catheter with improvement in SaO2, now 100% - Also place L pigtail catheter today - DuoNeb every 6 hours and when necessary ventilator bundle. HOB elevated. - No spontaneous breathing trials due to severe hypoxemia - Continue stress dose steroids GI: - Hold Tube feedings due to refractory shock, IV Protonix - Having daily bowel movements : - Sneed for accurate intake output - Electrolyte replacement per protocol - IV Lasix 40 mg x1 given ID/HEME: Refractory septic shock Staph aureus pneumonia - Follow-up on blood urine and sputum culture-staph aureus - Leukocytosis slightly improved - Continue IV vancomycin and meropenem and Levaquin - ID Dr. Guerra ENDO: Severe hypokalemia Hypomagnesemia - Electrolyte replacement per protocol - Scheduled potassium and magnesium for hypokalemia Proph: - No chemical DVT prophylaxis. - SCDs. - Protonix. Overall impression: Extensive SAH associated with ACOM aneurysm. She is critically ill, with vasospasm and respiratory failure. Large amount of blood, elevated risk for vasospasm. Now with worsening refractory septic shock on 3 pressors, and severe hypoxemic respiratory failure. Discussed at length with family at the bedside. High Mortality. family understands that patient is very critically ill with guarded prognosis. If no improvement in 24 -48 hours family wants to change CODE STATUS to DNR Critical care 85 mins Tona Rosen MD Jun 22, 2017 08:26
--- NOTE | 2017-06-22 08:29 | PD.PROCEDR ---
Procedure Note Procedure Procedure: Ultrasound-guided right pigtail chest tube placement Indication: Large right pleural effusion A time-out was completed verifying correct patient, procedure, site, positioning. The patient's right side was prepped and draped in a sterile manner after the appropriate infiltration level was confirmed by ultrasound. 1% lidocaine was used anesthetize the surrounding skin. A 10-blade scalpel used to make the incision. 18G needle was then introduced without difficulty and into the pleural space and clear yellow appearing fluid was removed. Guidewire was placed through the needle and the needle was removed. A 7 Kosovan dilator was used, followed by placement of 10 Kosovan pigtail catheter over the guidewire using Seldinger technique. Guidewire was removed and pigtail was connected to the Vacutainer, initial output 900 ML of free-flowing light yellow pleural fluid. A post-procedure chest x-ray was ordered and the fluid will be sent for several studies. Estimated Blood Loss: <1 ml. The patient tolerated the procedure well and there were no immediate complications. Tona Rosen MD Jun 22, 2017 08:29
--- NOTE | 2017-06-22 08:41 | RADRPT ---
EXAM DATE/TIME: 06/22/2017 08:20 [facility] COMPARISON: CHEST SINGLE AP, June 22, 2017, 5:36. INDICATIONS : Pigtail placement verification. MEDICAL HISTORY : Hypertension. Aneurysm, intracranial. SURGICAL HISTORY : Brain coil. ENCOUNTER: Subsequent ACUITY: 1 week PAIN SCORE: Non-responsive. LOCATION: Bilateral chest FINDINGS: A single view of the chest demonstrates interval placement of a pigtail drainage catheter laterally i n the right lung base with marked improvement and almost complete resolution of the previously seen r ight-sided effusion. There is persistent left perihilar airspace consolidation with a stable left-zofia ed effusion. Life support tubes are all stable including an endotracheal tube, right IJ central venou s catheter and a nasogastric tube which passes through the GE junction and extends off the inferior a spect of the image. Heart size is normal. Osseous structures are intact. No pneumothorax. CONCLUSION: 1. Interval placement of a right-sided thoracostomy tube laterally in the right lung base with almost complete resolution of the previously seen right-sided effusion. Marked improved aeration in the rig ht hemithorax. 2. Persistent left perihilar airspace infiltrate and associated left-sided effusion, unchanged. 3. Stable position of life support tubes. William Brizuela MD on June 22, 2017 at 8:37 Board Certified Radiologist. This report was verified electronically.
[2017-06-22 08:43] LABS: BICARBONATE 23.9 MEQ/L (21.0-32.0); POTASSIUM 4.5 MEQ/L (3.5-5.1)
[2017-06-22] MEDS: POTASSIUM CHLORIDE 25 MEQ EFFERVESCENT TAB PO SCH ×2 (09:00→21:02)
[2017-06-22] MEDS: DESMOPRESSIN ACETATE 4 MCG/ML VIAL IV PUSH SCH ×2 (09:00→20:32)
[2017-06-22] MEDS: BENEPROTEIN POWDER 1 PACK G-TUBE SCH ×3 (09:00→18:00)
[2017-06-22] MEDS: DOCUSATE SODIUM 50 MG/SENNA 8.6 MG TAB PO SCH ×2 (09:00→20:32)
[2017-06-22 09:05] LABS: CALCIUM-PROTEIN CORRECTED 7.4 MG/DL (8.5-10.1)
[2017-06-22] MEDS: levETIRAcetam INJ 500 MG in SODIUM CHLORIDE 0.9% INJ 100 ML IV SCH ×2 (09:18→21:02)
[2017-06-22] MEDS: LEVOFLOXACIN 750 MG PREMIX INJ 150 ML IV SCH (09:19)
[2017-06-22 09:25] LABS: TOTAL PROTEIN,PLEURAL FLUID 1.8 GM/DL
[2017-06-22 09:30] LABS: PLEURAL FLUID PH 8.5
--- NOTE | 2017-06-22 09:33 | HHI.NSPN ---
(Lyle Joaquin) History Chief Complaint: Unable to obtain due to patient's clinical condition. (JemalLyle) Interval History This 57-year-old right-handed female had the acute onset of severe headache early this morning and also complained of weakness in her legs, left more than right, along with paresthesias and subsequently became more lethargic. She was found on the floor by her with positive complaints of nausea. On arrival to the emergency room she was lethargic but responsive. CT scan of the head obtained reveals extensive diffuse subarachnoid hemorrhage involving the basal cisterns and also extending into the bilateral sylvian fissure and interhemispheric fissure and prepontine fissure along with suprasellar cistern. There is also mild hydrocephalus associated with this and slight dilation of the temporal horns bilaterally. 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 The patient is lethargic but does respond to verbal commands and follows simple instructions. 06/16/17: 5x4x3 mm ACOM aneurysm successfully treated with coil embolization on 06/15/17. No significant vasospasm seen involving the left intracranial vasculature per interventional radiology. Pt awakens to voice. Complains of headache all over. Has nausea and had episode of vomiting last night. Pt denies any paresthesias or weakness. She is lethargic and prefers her eyes closed, but awakens to voice. 06/17/17: Pt awake more alert this afternoon. Complains of headache all over. Nausea. Pt was up in chair earlier. Follows commands well. 06/18/17: Pt currently sedated for a STAT CT head that was ordered by critical care. Discussed with critical care and pt was acting restless and more confused but was following commands and gripping hands symmetrically. A follow up CT was obtained which revealed a new left frontal intraparenchymal hemorrhage with surrounding edema. Critical care is going to intubate pt for airway control and Dr. Yen is going to place a ventriculostomy drain. 06/19: Patient remains intubated and mechanically ventilated. She is on propofol 50 mcg/kg/min and midazolam 4 mL/hr for sedation. She has 3% saline infusing. She is on vasopressin at 6 mL/hr for blood pressure support. Nursing reports that she drain 75 mL from the ventriculostomy at 1400. This morning during a sedation vacation the patient did open her eyes to voice. She also reports that the patient's ICP has been running 5 to 8 but will go up to 10 when the ventriculostomy system is clamped or the patient is repositioned. 06/20/17: Remains intubated, mechanical ventilation, intravenous sedation. 06/21/17: possible septic shock, on multiple pressors. EVD draining well, bloody CSF, ICP wnl. f/u CTA Head yesterday neg for vasospasm. TCDs this morning pending. Sedation turned off 30 mins ago when rounded, no eye opening, not following commands, no withdrawals to extremities. 06/22: Patient intubated & mechanically ventilated with midazolam at 6 mL/hr infusing. Patient is being tranfused. Tech at bedside to do TCD when seen and on yesterday's there was no significant vasospasm seen. On multiple vasopressors for blood pressure support. Nursing reports that highest ICP for her was 4 but during the night it did spike to 13 but it went back down quickly. Also that patient is slightly withdrawing. (Lyle Joaquin) System Review Comments Unable to obtain due to patient's clinical condition. (Lyle Joaquin) Exam Results Vital Signs Date Time Temp Pulse Resp B/P Pulse Ox O2 Delivery O2 Flow Rate FiO2 06/22/17 06:00 109 169/90 06/22/17 04:00 100 06/22/17 04:00 98.7 20 96 06/21/17 19:00 Mechanical Ventilator Intake and Output 06/21/17 06/21/17 06/22/17 08:00 16:00 00:00 Intake Total 4581 ml 5468 ml 6690 ml Output Total 3800.0 ml 4098 ml 5810 ml Balance 781.0 ml 1370 ml 880 ml (Lyle Joaquin) Physical Examination GENERAL: Nonresponsive, she is on midazolam at 6 mL/hr for sedation. SKIN: Warm, dry & intact, no evident drainage, erythema or streaking from ventriculostomy site. HEENT: Normocephalic, atraumatic, ventriculostomy site intact, orally intubated , OGT. NECK: Neck supple, no JVD, trachea midline. Right IJ central venous catheter. CARDIOVASCULAR: S1S2 w/RRR w/o M/G/R, radial & pedal pulses 2+ bilaterally, cap refill < 2 sec, no pedal edema. Monitor is sinus rhythm w/o any ectopy noted. RESPIRATORY: Slightly coarse bilaterally, equal excursion, nonlaboured, orally intubated & mechanically ventilated. GASTROINTESTINAL: Abdomen soft, mildly distended, bowel sounds not appreciated, OGT w/enteral feeds. MUSCULOSKELETAL: No movement of extremities to noxious stimuli, no evident deformity or clubbing. NEUROLOGICAL: Nonresponsive, on midazolam drip, GCS 3T (E1 V1T M1). Does not follow commands. PERRLA 3 mm brisk. Unable to assess sensation due to mental status. Ventriculostomy at 10 cm H2O pressure w/reddish CSF draining, Nursing reports that highest ICP for her was 4 but during the night it did spike to 13 but it went back down quickly. (Lyle Joaquin) Lab, Micro, Other Results Allergies Coded Allergies Type Severity Reaction Last Updated Verified No Known Allergies 02/25/16 Yes Recent Impressions Chest X-Ray 06/22/17 0600 Signed Impressions: Service Date/Time: Thursday, June 22, 2017 05:36 - CONCLUSION: Stable chest x-ray with severe left midlung zone airspace consolidation and small bilateral pleural effusions. Silas Ortez MD Chest X-Ray 06/22/17 0000 Signed Impressions: Service Date/Time: Thursday, June 22, 2017 08:20 - CONCLUSION: 1. Interval placement of a right-sided thoracostomy tube laterally in the right lung base with almost complete resolution of the previously seen right-sided effusion. Marked improved aeration in the right hemithorax. 2. Persistent left perihilar airspace infiltrate and associated left-sided effusion, unchanged. 3. Stable position of life support tubes. William Brizuela MD Chest X-Ray 06/21/17 0600 Signed Impressions: Service Date/Time: Wednesday, June 21, 2017 03:58 - CONCLUSION: Bilateral pleural effusions with associated atelectasis and/or consolidation has slightly increased from the prior study. Silas Ortez MD Transcranial Doppler Study Complete 06/21/17 0000 Signed Impressions: Service Date/Time: Wednesday, June 21, 2017 07:50 - CONCLUSION: No significant vasospasm as yet. Flow remains in both anterior cerebral arteries. Jose E Méndez MD FACR Head CT 06/21/17 Signed Impressions: Service Date/Time: Wednesday, June 21, 2017 15:49 - CONCLUSION: Evolving intracranial hemorrhage. Nothing to suggest new hemorrhage. Silas Mtz MD Head CTA 06/20/17 0600 Signed Impressions: Service Date/Time: Tuesday, June 20, 2017 07:52 - CONCLUSION: No evidence for any significant spasm. Sascha Montez MD Transcranial Doppler Study Complete 06/20/17 0000 Signed Impressions: Service Date/Time: Tuesday, June 20, 2017 08:34 - CONCLUSION: There is no vasospasm on the right and the Fernández ratio is within normal limits on the left at this time. Sascha Montez MD Chest X-Ray 06/20/17 Signed Impressions: Service Date/Time: Tuesday, June 20, 2017 13:57 - CONCLUSION: Bibasilar opacities are present may be due to a combination of consolidation and or pleural effusion not present previously. Sascha Montez MD /177/177/177// 06:00 18:00 06:00 18:00 06:00 18:00 Intake Total 3361 ml 6799 ml 44850 ml 5468 ml 23457 ml Output Total 4932 ml 4295 ml 8510.0 ml 4098 ml 6852 ml Balance -1571 ml 2504 ml 2352.0 ml 1370 ml 4894 ml IV Total 3191 ml 6323 ml 49429 ml 5468 ml 53828 ml Tube Feeding 120 ml 426 ml 260 ml 0 ml 0 ml Tube Irrigant 50 ml 400 ml Other 50 ml 180 ml 120 ml Output Urine Total 4825 ml 4200 ml 8100 ml 4000 ml 6625 ml Tube Feeding Residual Discard 250.0 ml 0 ml 0 ml Drainage Total 107 ml 95 ml 160 ml 98 ml 227 ml # Bowel Movements 1 0 0 0 0 Laboratory Tests Test 06/19/17 06/19/17 06/20/17 06/20/17 11:00 18:47 02:30 08:15 Sodium Level 143 MEQ/L 143 MEQ/L 146 MEQ/L 144 MEQ/L Serum Osmolality 297 MOSM/KG 295 MOSM/KG 300 MOSM/KG Potassium Level 3.0 MEQ/L 3.4 MEQ/L Chloride Level 111 MEQ/L Carbon Dioxide Level 24.5 MEQ/L Anion Gap 11 MEQ/L Blood Urea Nitrogen 7 MG/DL Creatinine 0.42 MG/DL Estimat Glomerular Filtration 154 ML/MIN Rate Random Glucose 151 MG/DL Calcium Level 8.2 MG/DL Phosphorus Level 1.5 MG/DL Magnesium Level 1.6 MG/DL Test 06/20/17 06/20/17 06/20/17 06/21/17 09:20 15:13 21:00 02:30 Urine Osmolality 454 MOSM/KG Sodium Level 148 MEQ/L 147 MEQ/L Potassium Level 2.4 MEQ/L 3.7 MEQ/L Phosphorus Level 2.1 MG/DL Magnesium Level 1.5 MG/DL Chloride Level 118 MEQ/L Carbon Dioxide Level 22.4 MEQ/L Anion Gap 7 MEQ/L Blood Urea Nitrogen 4 MG/DL Creatinine 0.34 MG/DL Estimat Glomerular Filtration 197 ML/MIN Rate Random Glucose 149 MG/DL Calcium Level 7.1 MG/DL Protein Corrected Calcium 7.8 MG/DL Total Protein 5.7 GM/DL Serum Osmolality 299 MOSM/KG Test 06/21/17 06/21/17 06/21/17 06/21/17 03:00 10:14 10:45 11:40 White Blood Count 19.9 TH/MM3 Red Blood Count 3.20 MIL/MM3 Hemoglobin 9.9 GM/DL Hematocrit 29.8 % Mean Corpuscular Volume 93.1 FL Mean Corpuscular Hemoglobin 31.0 PG Mean Corpuscular Hemoglobin 33.2 % Concent Red Cell Distribution Width 13.8 % Platelet Count 248 TH/MM3 Mean Platelet Volume 8.3 FL Neutrophils (%) (Auto) 86.1 % Lymphocytes (%) (Auto) 7.8 % Monocytes (%) (Auto) 5.3 % Eosinophils (%) (Auto) 0.6 % Basophils (%) (Auto) 0.2 % Neutrophils # (Auto) 17.1 TH/MM3 Lymphocytes # (Auto) 1.5 TH/MM3 Monocytes # (Auto) 1.1 TH/MM3 Eosinophils # (Auto) 0.1 TH/MM3 Basophils # (Auto) 0.0 TH/MM3 CBC Comment DIFF FINAL Differential Comment Sodium Level 150 MEQ/L 155 MEQ/L Potassium Level 2.7 MEQ/L 2.1 MEQ/L Chloride Level 115 MEQ/L 122 MEQ/L Carbon Dioxide Level 23.3 MEQ/L 25.5 MEQ/L Anion Gap 12 MEQ/L 8 MEQ/L Blood Urea Nitrogen 5 MG/DL 3 MG/DL Creatinine 0.32 MG/DL 0.34 MG/DL Estimat Glomerular Filtration 211 ML/MIN 197 ML/MIN Rate Random Glucose 143 MG/DL 142 MG/DL Calcium Level 7.5 MG/DL 5.6 MG/DL Blood Gas Puncture Site ART LINE ART LINE Blood Gas Patient Temperature 98.6 98.6 Blood Gas HCO3 16 mmol/L 18 mmol/L Blood Gas Base Excess -10.3 mmol/L -7.0 mmol/L Blood Gas Oxygen Saturation 89 % 87 % Arterial Blood pH 7.22 7.32 Arterial Blood Partial 40 mmHg 37 mmHg Pressure CO2 Arterial Blood Partial 66 mmHg 56 mmHg Pressure O2 Arterial Blood Oxygen Content 10.9 Vol % 10.7 Vol % Arterial Blood 0.8 % 1.0 % Carboxyhemoglobin Arterial Blood Methemoglobin 0.9 % 0.7 % Blood Gas Hemoglobin 8.7 G/DL 8.7 G/DL Oxygen Delivery Device VENTILATOR VENTILATOR Blood Gas Ventilator Setting Blood Gas Inspired Oxygen 80 % 80 % Urine Specific [place] 1.008 Urine Osmolality 383 MOSM/KG Urine Random Sodium 163 MEQ/L Serum Osmolality 311 MOSM/KG Lactic Acid Level 2.0 mmol/L Protein Corrected Calcium 6.6 MG/DL Magnesium Level 1.3 MG/DL Total Bilirubin 0.7 MG/DL Aspartate Amino Transf 12 U/L (AST/SGOT) Alanine Aminotransferase 24 U/L (ALT/SGPT) Alkaline Phosphatase 62 U/L Troponin I 0.11 NG/ML Total Protein 4.7 GM/DL Albumin 2.1 GM/DL Random Cortisol 228.5 MCG/DL Test 06/21/17 06/21/17 06/21/17 06/21/17 17:48 21:25 22:50 23:15 White Blood Count 20.2 TH/MM3 Red Blood Count 2.70 MIL/MM3 Hemoglobin 8.3 GM/DL Hematocrit 25.2 % Mean Corpuscular Volume 93.0 FL Mean Corpuscular Hemoglobin 30.8 PG Mean Corpuscular Hemoglobin 33.1 % Concent Red Cell Distribution Width 13.6 % Platelet Count 226 TH/MM3 Mean Platelet Volume 9.3 FL Neutrophils (%) (Auto) 91.4 % Lymphocytes (%) (Auto) 3.5 % Monocytes (%) (Auto) 5.0 % Eosinophils (%) (Auto) 0.0 % Basophils (%) (Auto) 0.1 % Neutrophils # (Auto) 18.5 TH/MM3 Lymphocytes # (Auto) 0.7 TH/MM3 Monocytes # (Auto) 1.0 TH/MM3 Eosinophils # (Auto) 0.0 TH/MM3 Basophils # (Auto) 0.0 TH/MM3 CBC Comment DIFF FINAL Differential Comment Sodium Level 149 MEQ/L 148 MEQ/L Potassium Level 2.3 MEQ/L 3.1 MEQ/L Chloride Level 116 MEQ/L 114 MEQ/L Carbon Dioxide Level 26.2 MEQ/L 26.7 MEQ/L Anion Gap 7 MEQ/L 7 MEQ/L Blood Urea Nitrogen 4 MG/DL 5 MG/DL Creatinine 0.41 MG/DL 0.32 MG/DL Estimat Glomerular Filtration 159 ML/MIN 211 ML/MIN Rate Random Glucose 154 MG/DL 129 MG/DL Serum Osmolality 303 MOSM/KG 299 MOSM/KG Calcium Level 6.9 MG/DL 6.9 MG/DL Protein Corrected Calcium 7.6 MG/DL 7.7 MG/DL Magnesium Level 1.6 MG/DL 1.8 MG/DL Total Bilirubin 0.9 MG/DL 0.8 MG/DL Aspartate Amino Transf 14 U/L 12 U/L (AST/SGOT) Alanine Aminotransferase 26 U/L 23 U/L (ALT/SGPT) Alkaline Phosphatase 97 U/L 64 U/L Total Protein 5.8 GM/DL 5.6 GM/DL Albumin 2.8 GM/DL 2.9 GM/DL Blood Gas Puncture Site ART LINE Blood Gas Patient Temperature 98.6 Blood Gas HCO3 24 mmol/L Blood Gas Base Excess 1.3 mmol/L Blood Gas Oxygen Saturation 93 % Arterial Blood pH 7.51 Arterial Blood Partial 31 mmHg Pressure CO2 Arterial Blood Partial 62 mmHg Pressure O2 Arterial Blood Oxygen Content 11.1 Vol % Arterial Blood 1.2 % Carboxyhemoglobin Arterial Blood Methemoglobin 0.7 % Blood Gas Hemoglobin 8.5 G/DL Oxygen Delivery Device VENTILATOR Blood Gas Ventilator Setting PRESSURE AC Blood Gas Inspired Oxygen 80 % Lactic Acid Level 1.5 mmol/L Test 06/22/17 06/22/17 06/22/17 06/22/17 01:44 03:01 05:10 05:44 Blood Gas Puncture Site ART LINE ART LINE ART LINE Blood Gas Patient Temperature 98.6 98.6 98.6 Blood Gas HCO3 25 mmol/L 24 mmol/L 23 mmol/L Blood Gas Base Excess 0.1 mmol/L -0.2 mmol/L -0.9 mmol/L Blood Gas Oxygen Saturation 88 % 93 % 87 % Arterial Blood pH 7.38 7.44 7.39 Arterial Blood Partial 43 mmHg 36 mmHg 39 mmHg Pressure CO2 Arterial Blood Partial 57 mmHg 67 mmHg 55 mmHg Pressure O2 Arterial Blood Oxygen Content 10.6 Vol % 9.8 Vol % 12.5 Vol % Arterial Blood 1.0 % 1.2 % 0.9 % Carboxyhemoglobin Arterial Blood Methemoglobin 0.9 % 0.8 % 0.7 % Blood Gas Hemoglobin 8.6 G/DL 7.4 G/DL 10.2 G/DL Oxygen Delivery Device VENTILATOR VENTILATOR VENTILATOR Blood Gas Ventilator Setting PC/AC APRV/BIPHASIC BIPHASIC Blood Gas Inspired Oxygen 100 % 100 % 100 % White Blood Count 17.1 TH/MM3 Red Blood Count 2.21 MIL/MM3 Hemoglobin 6.8 GM/DL Hematocrit 20.5 % Mean Corpuscular Volume 92.6 FL Mean Corpuscular Hemoglobin 30.8 PG Mean Corpuscular Hemoglobin 33.3 % Concent Red Cell Distribution Width 13.7 % Platelet Count 205 TH/MM3 Mean Platelet Volume 8.4 FL Neutrophils (%) (Auto) 86.9 % Lymphocytes (%) (Auto) 7.4 % Monocytes (%) (Auto) 5.5 % Eosinophils (%) (Auto) 0.0 % Basophils (%) (Auto) 0.2 % Neutrophils # (Auto) 14.9 TH/MM3 Lymphocytes # (Auto) 1.3 TH/MM3 Monocytes # (Auto) 0.9 TH/MM3 Eosinophils # (Auto) 0.0 TH/MM3 Basophils # (Auto) 0.0 TH/MM3 CBC Comment DIFF FINAL Differential Comment Sodium Level 150 MEQ/L Potassium Level 4.5 MEQ/L Chloride Level 120 MEQ/L Carbon Dioxide Level 23.9 MEQ/L Anion Gap 6 MEQ/L Blood Urea Nitrogen 9 MG/DL Creatinine 0.40 MG/DL Estimat Glomerular Filtration 163 ML/MIN Rate Random Glucose 116 MG/DL Serum Osmolality 306 MOSM/KG Calcium Level 6.5 MG/DL Test 06/22/17 06/22/17 06:02 07:31 Blood Type A POSITIVE Antibody Screen NEGATIVE Crossmatch Leukocyte-Reduced Red Blood Cells Blood Bank Comment Blood Gas Puncture Site ART LINE Blood Gas Patient Temperature 98.6 Blood Gas HCO3 23 mmol/L Blood Gas Base Excess 0.1 mmol/L Blood Gas Oxygen Saturation 88 % Arterial Blood pH 7.52 Arterial Blood Partial 28 mmHg Pressure CO2 Arterial Blood Partial 49 mmHg Pressure O2 Arterial Blood Oxygen Content 9.9 Vol % Arterial Blood 1.3 % Carboxyhemoglobin Arterial Blood Methemoglobin 0.6 % Blood Gas Hemoglobin 8.0 G/DL Oxygen Delivery Device VENTILATOR Blood Gas Ventilator Setting Blood Gas Inspired Oxygen 100 % Vital Signs Date Time Temp Pulse Resp B/P Pulse Ox O2 Delivery O2 Flow Rate FiO2 06/22/17 06:00 109 169/90 06/22/17 04:00 100 06/22/17 04:00 98.7 82 20 96 166/92 06/22/17 03:38 95 100 06/22/17 02:42 84 100 06/22/17 00:40 92 100 06/22/17 00:00 80 06/22/17 00:00 98.9 97 15 175/81 94 06/21/17 23:00 93 100 06/21/17 23:00 94 06/21/17 21:45 95 80 06/21/17 21:10 95 80 06/21/17 20:15 40 06/21/17 20:00 98.8 110 18 145/76 93 06/21/17 20:00 80 06/21/17 19:02 95 80 06/21/17 19:00 91 Mechanical Ventilator 80 06/21/17 18:00 122 98/58 06/21/17 16:49 88 80 06/21/17 16:00 98.4 118 18 145/74 90 06/21/17 16:00 65 06/21/17 15:45 92 100 06/21/17 15:00 114 06/21/17 12:16 92 80 06/21/17 12:00 97.5 114 16 120/60 89 7/24/17 12:00 65 06/21/17 08:46 94 80 06/21/17 08:46 80 06/21/17 08:00 97.7 104 16 131/84 91 06/21/17 08:00 65 06/21/17 07:00 99 Mechanical Ventilator 75 06/21/17 07:00 105 06/21/17 06:00 109 98/58 06/21/17 04:06 34 55 06/21/17 04:00 99.8 103 14 150/77 97 06/21/17 04:00 65 06/21/17 01:09 95 65 06/21/17 00:00 65 06/21/17 00:00 98.0 95 14 179/86 97 06/20/17 23:00 95 06/20/17 21:26 97 65 06/20/17 21:26 97 65 06/20/17 20:00 98.2 98 14 180/88 98 06/20/17 20:00 75 06/20/17 19:00 98 Mechanical Ventilator 75 06/20/17 18:00 113 163/82 06/20/17 16:15 70 06/20/17 16:04 96 70 06/20/17 16:04 96 70 06/20/17 16:00 70 06/20/17 16:00 98.1 80 14 163/82 93 06/20/17 15:15 70 06/20/17 15:00 77 06/20/17 12:26 96 60 06/20/17 12:26 94 60 06/20/17 12:00 60 06/20/17 12:00 98.1 91 16 179/82 94 06/20/17 09:53 16 06/20/17 08:54 96 Ventilator 40 06/20/17 08:54 96 40 06/20/17 08:54 96 40 06/20/17 08:00 40 06/20/17 08:00 99.7 80 16 184/91 100 Automatic Cuff 06/20/17 07:30 100 100 06/20/17 07:00 100 Mechanical Ventilator 40 06/20/17 07:00 70 06/20/17 06:00 81 178/89 06/20/17 04:04 100 40 06/20/17 04:00 99.2 68 14 158/93 100 168/83 06/20/17 04:00 40 06/20/17 01:22 100 40 06/20/17 00:00 40 06/20/17 00:00 99.5 64 14 100 179/85 06/19/17 23:00 65 06/19/17 22:26 100 40 06/19/17 20:09 100 40 06/19/17 20:09 100 40 06/19/17 20:00 40 06/19/17 20:00 99.4 75 14 170/113 100 175/88 06/19/17 19:00 100 Mechanical Ventilator 40 06/19/17 18:00 66 183/102 175/83 06/19/17 16:14 100 40 06/19/17 16:00 98.0 97 14 178/84 100 174/84 06/19/17 16:00 40 06/19/17 15:00 76 06/19/17 12:00 40 06/19/17 12:00 100.4 97 14 164/95 100 130/71 06/19/17 11:00 100 40 (Lyle Joaquin) Medical Decision Making Impression and Plan Impression: 1. 57 y/o FM with diffuse subarachnoid hemorrhage involving the basal cisterns as well as the interhemispheric fissure with a mild hydrocephalus from a ruptured anterior communicating artery aneurysm. s/p aneurysm coiling by radiology special procedures. 2. Hypertension. 3. New left frontal intraparenchymal hemorrhage with surrounding edema TCD with increase in left vasospasm and decrease in right vasospasm. CTA brain w/o evidence for significant spasm. TCD w/o significant vasospams. CT brain demonstrated evolving haemorrhage but nothing to suggest any new haemorrhage. Ventriculostomy w/325 mL drainage past 24 hours. Anaemia, interval worsening (8.3=>6.8) Leukocytosis, interval improvement (20.9=>17.1) Sodium 150 Patient w/poor neurological function. Septic shock. Plan: Frequent neuro checks Continue ventriculostomy drain & monitor ICP Permissive hypertension prophylactically for vasospasm treatment Continue critical care management (Lyle Joaquin) Attending Statement I have personally seen and examined the patient on the date of this note. Pertinent documentation and study results have been reviewed by the undersigned. I have personally developed the treatment plan and performed medical decision making. Agree with findings, exam, and treatment plan as noted above. On my examination today, pupils 2 mm nonreactive. Mild oculocephalic responses She grimaces to deep pain over the chest and mildly withdraws the right greater than left upper extremity to deep pain. Remains intubated with IV fentanyl sedation. Discussed with fine jewelry sales associate in the intensive care unit today. She now has bilateral chest tubes. Issues regarding her medical status were discussed. She has not had any evidence of significant vasospasm on her postoperative CT angiogram 2 and transcranial Doppler studies. It may be best from a cardiopulmonary standpoint to decrease the blood pressure parameters to the 140s-160 range. Continue ventriculostomy. (Sammy Macias MD) Lyle Joaquin Jun 22, 2017 09:33 Sammy Macias MD Jun 22, 2017 20:07
[2017-06-22 09:50] LABS: PLEURAL FLUID LYMPHS 1 %
--- NOTE | 2017-06-22 12:25 | PD.PROCEDR ---
Procedure Note Procedure Procedure: Ultrasound-guided left pigtail chest tube placement Indication: Large left pleural effusion A time-out was completed verifying correct patient, procedure, site, positioning. The patient's left lower cheste was prepped and draped in a sterile manner after the appropriate infiltration level was confirmed by ultrasound. 1% lidocaine was used anesthetize the surrounding skin. A 10-blade scalpel used to make the incision. 18G needle was then introduced without difficulty and into the pleural space and clear yellow appearing fluid was removed. Guidewire was placed through the needle and the needle was removed. A 7 [place] dilator was used, followed by placement of 8 [place] pigtail catheter over the guidewire using Seldinger technique. Guidewire was removed and pigtail was connected to the Vacutainer, initial output 700 ML of free-flowing light yellow pleural fluid. A post-procedure chest x-ray was ordered and the fluid will be sent for several studies. Estimated Blood Loss: <1 ml. The patient tolerated the procedure well and there were no immediate complications. Tona Rosen MD Jun 22, 2017 12:25
[2017-06-22 12:48] LABS: BLOOD GAS BASE EXCESS -7.5 mmol/L (-2-2); BLOOD GAS CARBOXYHEMOGLOBIN 1.3 % (0-4); BLOOD GAS HCO3 14 mmol/L (22-26); BLOOD GAS METHEMOGLOBIN 0.8 % (0-2); BLOOD GAS O2 HGB SATURATION 97 % (90-100); BLOOD GAS OXYGEN CONTENT 9.5 Vol % (12.0-20.0); BLOOD GAS PCO2 15 mmHg (38-42); BLOOD GAS PO2 114 mmHg (61-120); BLOOD GAS TOTAL HGB 6.8 G/DL (12.0-16.0); TEMP CORR TO 98.6
[2017-06-22 12:49] LABS: CRITICAL VALUE YES; DRAW SITE ART LINE; FIO2 50 %; OXYGEN DEVICE VENTILATOR; VENT SETTINGS PC/AC
[2017-06-22 12:50] LABS: NUMBER OF ARTERIAL PUNCTURES 0; STAT NO; ULNAR PULSE PRESENT
--- NOTE | 2017-06-22 13:06 | RADRPT ---
EXAM DATE/TIME: 06/22/2017 12:31 [facility] COMPARISON: CHEST SINGLE AP, June 22, 2017, 8:20. INDICATIONS : Pigtail catheter placement. MEDICAL HISTORY : Hypertension. Aneurysm, intracranial. SURGICAL HISTORY : Brain coil. ENCOUNTER: Subsequent ACUITY: 1 week PAIN SCORE: Non-responsive. LOCATION: Bilateral chest FINDINGS: Endotracheal tube is present good position with tip several centimeters above the juarez. Right centr al line descends into SVC. A nasogastric tube descends into the stomach. A pigtail thoracostomy tube is present the right lung base. There is no significant effusion and no pneumothorax is appreciated. There is persistent bilateral perihilar and basilar infiltrates, left worse than right. Accounting fo r rotation, cardiomediastinal contours are stable. CONCLUSION: Satisfactory support line and tube positioning. Stable infiltrates. Silas Mtz MD on June 22, 2017 at 12:55 Board Certified Radiologist. This report was verified electronically.
[2017-06-22 13:47] LABS: TOTAL PROTEIN,PLEURAL FLUID 1.6 GM/DL
[2017-06-22 14:05] LABS: AUTOMATED NEUTROPHIL # 17.8 TH/MM3 (1.8-7.7); BASOPHIL % 0.2 % (0.0-2.0); EOSINOPHIL % 0.1 % (0.0-4.0); HEMATOCRIT 27.7 % (35.0-46.0); LYMPHOCYTE # 1.6 TH/MM3 (1.0-4.8); MEAN CELL VOLUME 87.8 FL (80.0-100.0); MEAN CORPUSCULAR HEMOGLOBIN 32.2 PG (27.0-34.0); MONO % 4.3 % (0.0-8.0); NEUT % 87.4 % (16.0-70.0); PLATELET COUNT 198 TH/MM3 (150-450); RED BLOOD COUNT 3.15 MIL/MM3 (4.00-5.30); WHITE BLOOD COUNT 20.4 TH/MM3 (4.0-11.0)
[2017-06-22 14:12] LABS: HEMO FLAGS AUTO DIFF
[2017-06-22 14:14] LABS: BLOOD GAS BASE EXCESS 1.2 mmol/L (-2-2); BLOOD GAS CARBOXYHEMOGLOBIN 1.3 % (0-4); BLOOD GAS HCO3 25 mmol/L (22-26); BLOOD GAS METHEMOGLOBIN 0.9 % (0-2); BLOOD GAS O2 HGB SATURATION 93 % (90-100); BLOOD GAS OXYGEN CONTENT 12.8 Vol % (12.0-20.0); BLOOD GAS PCO2 35 mmHg (38-42); BLOOD GAS PO2 70 mmHg (61-120); BLOOD GAS TOTAL HGB 9.8 G/DL (12.0-16.0); CRITICAL VALUE NO; OXYGEN DEVICE VENTILATOR; TEMP CORR TO 98.6
[2017-06-22 14:15] LABS: DRAW SITE ART LINE; FIO2 50 %
[2017-06-22 14:16] LABS: STAT NO
[2017-06-22 14:42] LABS: PLEURAL FLUID LYMPHS 13 %
--- NOTE | 2017-06-22 14:53 | RADRPT ---
EXAM DATE/TIME: 06/22/2017 08:50 [facility] COMPARISON: US TRANSCRANIAL DOPPLER COMPLETE, June 21, 2017, 7:50. INDICATIONS : Subarachnoid hemorrhage. MEDICAL HISTORY : Hypertension. Arthritis. Subarachnoid hemorrhage. Weakness. SURGICAL HISTORY : Tubal ligation. Aneurysm coil. ENCOUNTER: [facility] ACUITY: 1 week PAIN SCORE: Nonresponsive. LOCATION: cranial Current Exam: Jun 22, 2017 [place] Ratio: Right: 2.0 Left: 2.9 [place] Ratio: Right: 1.1 Left: 1.6 Previous Exam: Jun 20, 2017 [place] Ratio: Right: 2.86 Left: 3.7 [place] Ratio: Right: UTO Left: 2.27 FINDINGS: Examination performed at bedside. Real-time ultrasound with the assistance of color and spectral Dop pler was utilized to evaluate the intracerebral circulation. Time-averaged maximal velocities are ca lculated in cm/s. [place] and Fernández ratios are normal bilaterally. No Doppler findings of vasospasm. CONCLUSION: No Doppler findings of vasospasm. Normal ratios bilaterally. William Brizuela MD on June 22, 2017 at 14:49 Board Certified Radiologist. This report was verified electronically.
[2017-06-22] MEDS ORDERED: CALCIUM GLUCONATE INJ 2 GM in DEXTROSE 5% IN WATER 100ML INJ 100 ML IV ONE ×2 (15:00)
[2017-06-22 15:02] LABS: BICARBONATE 25.5 MEQ/L (21.0-32.0); MAGNESIUM 1.7 MG/DL (1.5-2.5); TOTAL BILIRUBIN ADULT 1.9 MG/DL (0.2-1.0)
[2017-06-22 15:32] LABS: BANDS 8 % (0-6); CORRECTED NUCLEATED RBC 1 /100 WBC (0-0); NEUTROPHIL # MANUAL DIFF 17.7 TH/MM3 (1.8-7.7); POLYS (SEG NEUTROPHILS) 79 % (16-70); WBC DIFF SAMPLE 100
[2017-06-22 15:34] LABS: OVALOCYTES 1+ (NORMAL); PLATELET ESTIMATE SMEAR NORMAL (NORMAL); PLATELET MORPHOLOGY NORMAL (NORMAL); SCAN/DIFF FINAL DIFF MANUAL; SPHEROCYTES 1+ (NORMAL)
[2017-06-22 15:45] LABS: POTASSIUM 2.5 MEQ/L (3.5-5.1)
[2017-06-22] MEDS: VANCOMYCIN 1,000 MG/NS 250 ML IV SCH ×2 (15:56)
--- NOTE | 2017-06-22 16:55 | HHI.IDPN ---
Subjective Subjective Remarks Ms. Nevarez is a 57-year-old female with past medical history significant for hypertension who presented to the emergency department with complaints of headache and bilateral lower extremity weakness. Patient's reported to the ER physician the patient was normal on the day of admission and suddenly started having very bad headache followed by tingling bilateral lower extremity. She also had nausea on admission with no vomiting fever or chest pain. On June 15, 2017 patient was admitted to the hospital with diagnosis of acute subarachnoid hemorrhage due to aneurysm. This was coiled on June [address] Yen. Per review of records it appears that on June 16 patient continued to have severe headache was somnolent and had nausea and vomiting. Her intracranial pressure was monitored by transcranial ultrasound. On June 18 patient had sudden onset and of altered mental status. Vladimir that she was complaining of headache as turning in bed. A transcranial Doppler initially did not show any vasospasm. A stat CT of the head and CT angiogram was ordered. Patient underwent placement of a external ventricular device on June 20, 2017. Due to fevers patient was started on empiric Zosyn and vancomycin pending cultures. She also received stress dose hydrocortisone. It appears that on June 21 she developed fevers and tachycardia profound shock requiring 4 pressors to maintain systolic blood pressure. At the time of my evaluation patient is on norepinephrine, dopamine, Emil-Synephrine and vasopressin at max doses. Patient is currently being treated for diabetes insipidus. At the time of my evaluation patient is in the ICU on max dose 4 pressors. Urine output is adequate. Patient is off sedation but no meaningful response and therefore is being taken for a stat CT scan of the brain. Chest x-ray shows bilateral infiltrate. Dr. Rosen informs me that an ultrasound bedside is suggestive of consolidation. Infectious disease is consulted for evaluation and management of septic shock and possible healthcare associated pneumonia. Overnight events reviewed No fevers remains intubated and sedated. No change in neuro status. Off Levophed. Overall pressor requirements going down. No diarrhea Some segovia secretions. ICP pressures in normal range. s/p thoracentesis bilateral 900 cc each side approx per RN Antibiotics Meropenem IV Vanco IV Levaquin IV Lines Line sites with no e.o infection. Past Medical History Hypertension Tubal ligation Coiling of the aneurysm this admission. External ventricular device placement. Allergies: Coded Allergies: No Known Allergies (Verified , 02/25/16) Objective . Vital Signs Date Time Temp Pulse Resp B/P Pulse Ox O2 Delivery O2 Flow Rate FiO2 06/22/17 16:44 93 50 06/22/17 16:00 50 06/22/17 16:00 98.9 66 16 171/85 96 06/22/17 15:00 70 06/22/17 12:00 98.8 80 20 184/96 100 06/22/17 12:00 100 06/22/17 11:48 98 60 06/22/17 09:16 97 70 06/22/17 08:00 99.1 104 20 162/94 100 06/22/17 08:00 100 06/22/17 07:00 105 06/22/17 06:00 109 169/90 06/22/17 04:00 100 06/22/17 04:00 98.7 82 20 96 166/92 06/22/17 03:38 95 100 06/22/17 02:42 84 100 06/22/17 00:40 92 100 06/22/17 00:00 80 06/22/17 00:00 98.9 97 15 175/81 94 06/21/17 23:00 93 100 06/21/17 23:00 94 06/21/17 21:45 95 80 06/21/17 21:10 95 80 06/21/17 20:15 40 06/21/17 20:00 98.8 110 18 145/76 93 06/21/17 20:00 80 06/21/17 19:02 95 80 06/21/17 19:00 91 Mechanical Ventilator 80 06/21/17 18:00 122 98/58 06/21/17 06/21/17 06/22/17 15:00 23:00 07:00 Intake Total 5468 ml 6690 ml 5056 ml Output Total 4098 ml 5810 ml 1042 ml Balance 1370 ml 880 ml 4014 ml IV Total 5468 ml 6630 ml 4996 ml Tube Feeding 0 ml 0 ml 0 ml Other 60 ml 60 ml Output Urine Total 4000 ml 5700 ml 925 ml Tube Feeding Residual Discard 0 ml 0 ml Drainage Total 98 ml 110 ml 117 ml # Bowel Movements 0 0 0 . Laboratory Tests Test 06/21/17 06/21/17 06/22/17 06/22/17 03:00 17:48 05:10 13:20 White Blood Count 19.9 TH/MM3 20.2 TH/MM3 17.1 TH/MM3 20.4 TH/MM3 Red Blood Count 3.20 MIL/MM3 2.70 MIL/MM3 2.21 MIL/MM3 3.15 MIL/MM3 Hemoglobin 9.9 GM/DL 8.3 GM/DL 6.8 GM/DL 10.1 GM/DL Hematocrit 29.8 % 25.2 % 20.5 % 27.7 % Mean Corpuscular Volume 93.1 FL 93.0 FL 92.6 FL 87.8 FL Mean Corpuscular Hemoglobin 31.0 PG 30.8 PG 30.8 PG 32.2 PG Mean Corpuscular Hemoglobin 33.2 % 33.1 % 33.3 % 36.6 % Concent Red Cell Distribution Width 13.8 % 13.6 % 13.7 % 14.0 % Platelet Count 248 TH/MM3 226 TH/MM3 205 TH/MM3 198 TH/MM3 Mean Platelet Volume 8.3 FL 9.3 FL 8.4 FL 9.3 FL Neutrophils (%) (Auto) 86.1 % 91.4 % 86.9 % 87.4 % Lymphocytes (%) (Auto) 7.8 % 3.5 % 7.4 % 8.0 % Monocytes (%) (Auto) 5.3 % 5.0 % 5.5 % 4.3 % Eosinophils (%) (Auto) 0.6 % 0.0 % 0.0 % 0.1 % Basophils (%) (Auto) 0.2 % 0.1 % 0.2 % 0.2 % Neutrophils # (Auto) 17.1 TH/MM3 18.5 TH/MM3 14.9 TH/MM3 17.8 TH/MM3 Lymphocytes # (Auto) 1.5 TH/MM3 0.7 TH/MM3 1.3 TH/MM3 1.6 TH/MM3 Monocytes # (Auto) 1.1 TH/MM3 1.0 TH/MM3 0.9 TH/MM3 0.9 TH/MM3 Eosinophils # (Auto) 0.1 TH/MM3 0.0 TH/MM3 0.0 TH/MM3 0.0 TH/MM3 Basophils # (Auto) 0.0 TH/MM3 0.0 TH/MM3 0.0 TH/MM3 0.0 TH/MM3 CBC Comment DIFF FINAL DIFF FINAL DIFF FINAL AUTO DIFF Differential Comment FINAL DIFF MANUAL Differential Total Cells 100 Counted Neutrophils % (Manual) 79 % Band Neutrophils % 8 % Lymphocytes % 7 % Monocytes % 6 % Neutrophils # (Manual) 17.7 TH/MM3 Nucleated Red Blood Cells 1 /100 WBC Platelet Estimate NORMAL Platelet Morphology Comment NORMAL Spherocytes 1+ Ovalocytes 1+ Laboratory Tests Test 06/20/17 06/21/17 06/21/17 06/21/17 21:00 02:30 03:00 10:45 Sodium Level 147 MEQ/L 150 MEQ/L 155 MEQ/L Potassium Level 3.7 MEQ/L 2.7 MEQ/L 2.1 MEQ/L Chloride Level 118 MEQ/L 115 MEQ/L 122 MEQ/L Carbon Dioxide Level 22.4 MEQ/L 23.3 MEQ/L 25.5 MEQ/L Anion Gap 7 MEQ/L 12 MEQ/L 8 MEQ/L Blood Urea Nitrogen 4 MG/DL 5 MG/DL 3 MG/DL Creatinine 0.34 MG/DL 0.32 MG/DL 0.34 MG/DL Estimat Glomerular Filtration 197 ML/MIN 211 ML/MIN 197 ML/MIN Rate Random Glucose 149 MG/DL 143 MG/DL 142 MG/DL Calcium Level 7.1 MG/DL 7.5 MG/DL 5.6 MG/DL Protein Corrected Calcium 7.8 MG/DL 6.6 MG/DL Total Protein 5.7 GM/DL 4.7 GM/DL Serum Osmolality 299 MOSM/KG 311 MOSM/KG Lactic Acid Level 2.0 mmol/L Magnesium Level 1.3 MG/DL Total Bilirubin 0.7 MG/DL Aspartate Amino Transf 12 U/L (AST/SGOT) Alanine Aminotransferase 24 U/L (ALT/SGPT) Alkaline Phosphatase 62 U/L Troponin I 0.11 NG/ML Albumin 2.1 GM/DL Random Cortisol 228.5 MCG/DL Test 06/21/17 06/21/17 06/21/17 06/22/17 17:48 22:50 23:15 05:10 Sodium Level 149 MEQ/L 148 MEQ/L 150 MEQ/L Potassium Level 2.3 MEQ/L 3.1 MEQ/L 4.5 MEQ/L Chloride Level 116 MEQ/L 114 MEQ/L 120 MEQ/L Carbon Dioxide Level 26.2 MEQ/L 26.7 MEQ/L 23.9 MEQ/L Anion Gap 7 MEQ/L 7 MEQ/L 6 MEQ/L Blood Urea Nitrogen 4 MG/DL 5 MG/DL 9 MG/DL Creatinine 0.41 MG/DL 0.32 MG/DL 0.40 MG/DL Estimat Glomerular Filtration 159 ML/MIN 211 ML/MIN 163 ML/MIN Rate Random Glucose 154 MG/DL 129 MG/DL 116 MG/DL Serum Osmolality 303 MOSM/KG 299 MOSM/KG 306 MOSM/KG Calcium Level 6.9 MG/DL 6.9 MG/DL 6.5 MG/DL Protein Corrected Calcium 7.6 MG/DL 7.7 MG/DL 7.4 MG/DL Magnesium Level 1.6 MG/DL 1.8 MG/DL Total Bilirubin 0.9 MG/DL 0.8 MG/DL Aspartate Amino Transf 14 U/L 12 U/L (AST/SGOT) Alanine Aminotransferase 26 U/L 23 U/L (ALT/SGPT) Alkaline Phosphatase 97 U/L 64 U/L Total Protein 5.8 GM/DL 5.6 GM/DL 5.2 GM/DL Albumin 2.8 GM/DL 2.9 GM/DL Lactic Acid Level 1.5 mmol/L Test 06/22/17 06/22/17 12:15 13:20 Sodium Level 147 MEQ/L 148 MEQ/L Potassium Level 2.5 MEQ/L Chloride Level 111 MEQ/L Carbon Dioxide Level 25.5 MEQ/L Anion Gap 12 MEQ/L Blood Urea Nitrogen 10 MG/DL Creatinine 0.43 MG/DL Estimat Glomerular Filtration 150 ML/MIN Rate Random Glucose 117 MG/DL Calcium Level 7.4 MG/DL Protein Corrected Calcium 8.0 MG/DL Magnesium Level 1.7 MG/DL Total Bilirubin 1.9 MG/DL Aspartate Amino Transf 227 U/L (AST/SGOT) Alanine Aminotransferase 172 U/L (ALT/SGPT) Alkaline Phosphatase 79 U/L Total Protein 6.0 GM/DL Albumin 3.3 GM/DL Microbiology Date/Time Procedure Status Source Growth 06/20/17 18:10 Gram Stain - Final Resulted Sputum Endotracheal 06/20/17 18:10 Sputum Culture - Preliminary Resulted Staphylococcus Aureus 06/21/17 10:45 Gram Stain - Final Resulted Sputum Endotracheal 06/21/17 10:45 Sputum Culture - Preliminary Resulted Sputum Endotracheal IMMATURE GROWTH - REINCUBATE 06/21/17 10:45 Urine Culture - Preliminary Resulted Urine Catheterized Urine NO GROWTH IN 24 HOURS. 06/21/17 12:24 Aerobic Blood Culture - Preliminary Resulted Blood Peripheral NO GROWTH IN 1 DAY 06/21/17 12:24 Anaerobic Blood Culture - Preliminary Resulted Blood Peripheral NO GROWTH IN 1 DAY 06/21/17 12:24 Aerobic Blood Culture - Preliminary Resulted Blood Peripheral NO GROWTH IN 1 DAY 06/21/17 12:24 Anaerobic Blood Culture - Preliminary Resulted Blood Peripheral NO GROWTH IN 1 DAY 06/22/17 08:00 Gram Stain - Final Resulted Fluid Pleural Fluid 06/22/17 08:00 Body Fluid Culture Resulted Fluid Pleural Fluid Pending 06/22/17 08:00 Acid Fast Stain Received Fluid Pleural Fluid Pending 06/22/17 08:00 Mycobacterial Culture Received Fluid Pleural Fluid Pending 06/22/17 08:00 Fungal Smear - Final Resulted Fluid Pleural Fluid NO FUNGAL ELEMENTS SEEN. 06/22/17 08:00 Fungal Culture Resulted Fluid Pleural Fluid Pending 06/22/17 12:50 Gram Stain - Final Resulted Fluid Pleural Fluid 06/22/17 12:50 Body Fluid Culture Resulted Fluid Pleural Fluid Pending 06/22/17 12:50 Acid Fast Stain - Final Complete Fluid Pleural Fluid 06/22/17 12:50 Mycobacterial Culture - Final Complete Fluid Pleural Fluid 06/22/17 12:50 Fungal Smear - Final Resulted Fluid Pleural Fluid NO FUNGAL ELEMENTS SEEN. 06/22/17 12:50 Fungal Culture Resulted Fluid Pleural Fluid Pending Imaging Last Impressions Chest X-Ray 06/22/17 0600 Signed Impressions: Service Date/Time: Thursday, June 22, 2017 05:36 - CONCLUSION: Stable chest x-ray with severe left midlung zone airspace consolidation and small bilateral pleural effusions. Silas Ortez MD Transcranial Doppler Study Complete 06/22/17 0000 Signed Impressions: Service Date/Time: Thursday, June 22, 2017 08:50 - CONCLUSION: No Doppler findings of vasospasm. Normal ratios bilaterally. William Brizuela MD Head CT 06/21/17 0000 Signed Impressions: Service Date/Time: Wednesday, June 21, 2017 15:49 - CONCLUSION: Evolving intracranial hemorrhage. Nothing to suggest new hemorrhage. Silas Mtz MD Head CTA 06/20/17 0600 Signed Impressions: Service Date/Time: Tuesday, June 20, 2017 07:52 - CONCLUSION: No evidence for any significant spasm. Sascha Montez MD Neck CTA 06/15/17 1125 Signed Impressions: Service Date/Time: Thursday, June 15, 2017 12:10 - CONCLUSION: 1. No stenosis of either carotid artery. 2. No aneurysm seen. 3. Normal variants of the aortic arch. Pascual Sanderson MD Cerebral Arteriogram 06/15/17 0000 Signed Impressions: Service Date/Time: Thursday, June 15, 2017 13:11 - CONCLUSION: 1. 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 2. No significant vasospasm seen on the left. 3. I spoke with Dr. Yen immediately following the procedure. Emile Walker Jr., MD Physical Exam GENERAL: This is a well-nourished, well-developed patient, in no apparent distress. SKIN: No rashes, ecchymoses or lesions. Cool and dry. HEAD: EVD in place with no e.o infection. EYES:. No scleral icterus. No injection or drainage. ENT: Nose without bleeding, purulent drainage or septal hematoma. Throat without erythema, tonsillar hypertrophy or exudate. Uvula midline. Airway patent. NECK: Trachea midline. Supple, nontender, no meningeal signs. CARDIOVASCULAR: Regular rate and rhythm without murmurs, gallops, or rubs. RESPIRATORY: Clear to auscultation. Breath sounds equal bilaterally. No wheezes , rales, or rhonchi. GASTROINTESTINAL: Abdomen soft, non-tender, nondistended. MUSCULOSKELETAL: Extremities without clubbing, cyanosis, or edema. NEUROLOGICAL: Off sedation with no meaningful response. No response to threat. Psych could not be assessed IV line sites with no evidence of infection. Assessment & Plan Remarks Septic Shock (fever, leucocytosis, shock, source: Pneumonia) Aspiration Pneumonia on admission. Possible HCAP. Acute resp failure on vent Acute encephalopathy: Acute SAH, metabolic, infection. Acute SAH s/p aneurysm coiling. Possible DI m'ment per [facility] . Recs: Continue Meropenem IV (ASP: worsening septic shock, ? MDRO) Continue Vanco IV (target trough 15-20 for Pneumonia) Continue Levaquin IV (covers atypical and other resistant GNR) Follow cultures, including pleural fluid Cx Follow clinically. Critically ill. d/w and RN for pt. Claire Guerra MD Jun 22, 2017 16:55
[2017-06-23] VITALS (18 sets, daily range): BP systolic 122–160; BP diastolic 62–87; PULSE 59–109; RESP 16–17; TEMP 97.7–98.7; O2SAT 88–98
[2017-06-23] MEDS: MEROPENEM INJ 1,000 MG in SODIUM CHLORIDE 0.9% INJ 100 ML IV SCH ×3 (00:39→17:05)
[2017-06-23] MEDS: SODIUM CHLOR 0.9% 1000 ML INJ 1,000 ML IV SCH ×5 (00:39→21:27)
[2017-06-23] MEDS: RESP: ALBUTEROL 2.5 MG/IPRATROPIUM 0.5 MG NEB (SCH) NEB ×6 (03:56→23:24)
[2017-06-23] MEDS: SODIUM BICARBONATE 8.4% INJ 150 MEQ in WATER STERILE FOR INJ 850 ML IV SCH ×3 (04:00→17:20)
[2017-06-23] MEDS: CHLORHEXIDINE GLUCONATE 2 % 1 PACK (2 CLOTHS) TOP SCH (04:00)
[2017-06-23] MEDS: MILRINONE INJ 20 MG in SODIUM CHLORIDE 0.9% INJ 80 ML IV SCH ×3 (04:42→20:27)
[2017-06-23] MEDS: ALBUMIN HUMAN 25% 25 GM/100 ML BAGP IV SCH ×3 (04:42→18:09)
[2017-06-23] MEDS: HYDROCORTISONE SOD SUCCINATE 100 MG VIAL IV PUSH SCH ×3 (04:43→20:50)
[2017-06-23] MEDS: MAGNESIUM OXIDE 400 MG TAB PO SCH ×3 (04:43→20:51)
[2017-06-23 04:48] LABS: AUTOMATED NEUTROPHIL # 19.3 TH/MM3 (1.8-7.7); BASOPHIL % 0.2 % (0.0-2.0); HEMATOCRIT 29.4 % (35.0-46.0); HEMO FLAGS DIFF FINAL; LYMPHOCYTE # 1.1 TH/MM3 (1.0-4.8); MEAN CELL VOLUME 89.7 FL (80.0-100.0); MEAN CORPUSCULAR HEMOGLOBIN 31.2 PG (27.0-34.0); MEAN CORPUSCULAR HGB CONC 34.8 % (32.0-36.0); NEUT % 90.8 % (16.0-70.0); PLATELET COUNT 192 TH/MM3 (150-450); RED BLOOD COUNT 3.28 MIL/MM3 (4.00-5.30); RED CELL DISTRIBUTION WIDTH 14.4 % (11.6-17.2); WHITE BLOOD COUNT 21.3 TH/MM3 (4.0-11.0)
[2017-06-23 05:09] LABS: BICARBONATE 21.5 MEQ/L (21.0-32.0); TOTAL BILIRUBIN ADULT 1.1 MG/DL (0.2-1.0)
[2017-06-23] MEDS: VANCOMYCIN 1,000 MG/NS 250 ML IV SCH ×4 (05:20→16:16)
[2017-06-23 05:26] LABS: BLOOD GAS BASE EXCESS -2.1 mmol/L (-2-2); BLOOD GAS HCO3 22 mmol/L (22-26); BLOOD GAS METHEMOGLOBIN 0.8 % (0-2); BLOOD GAS O2 HGB SATURATION 94 % (90-100); BLOOD GAS OXYGEN CONTENT 13.3 Vol % (12.0-20.0); BLOOD GAS PCO2 38 mmHg (38-42); BLOOD GAS PO2 82 mmHg (61-120); CRITICAL VALUE NO; OXYGEN DEVICE VENTILATOR; TEMP CORR TO 98.6
[2017-06-23 05:27] LABS: DRAW SITE ART LINE; FIO2 50 %; STAT NO; ULNAR PULSE PRESENT; VENT SETTINGS PC/AC
--- NOTE | 2017-06-23 06:12 | RADRPT ---
EXAM DATE/TIME: 06/23/2017 05:20 [place] COMPARISON: CHEST SINGLE AP, June 22, 2017, 12:31. INDICATIONS : Short of breath. MEDICAL HISTORY : Hypertension. Aneurysm, intracranial. SURGICAL HISTORY : None. ENCOUNTER: Subsequent ACUITY: 1 week PAIN SCORE: 0/10 LOCATION: Bilateral chest FINDINGS: Portable AP view of the chest demonstrates a normal-sized cardiac silhouette. ETT, right IJ line, and nasogastric tube remain present. Right chest tube is present. No pneumothorax is visualized. There i s stable consolidation in the left mid and lower lung zone and at the right lung base. CONCLUSION: 1. Stable chest x-ray. Right chest tube is present no pneumothorax is seen. 2. Stable bilateral airspace consolidation, left greater than right. Silas Ortez MD on June 23, 2017 at 6:10 Board Certified Radiologist. This report was verified electronically.
[2017-06-23] MEDS: SODIUM CHLORIDE IV SCH ×2 (06:24→21:19)
[2017-06-23] MEDS: SODIUM CHLORID 0.9% IV SCH ×2 (06:24→21:19)
[2017-06-23] MEDS: BENEPROTEIN POWDER 1 PACK G-TUBE SCH ×3 (09:00→17:26)
[2017-06-23] MEDS: POTASSIUM CHLORIDE 25 MEQ EFFERVESCENT TAB PO SCH ×2 (09:00→21:01)
[2017-06-23] MEDS: DOCUSATE SODIUM 50 MG/SENNA 8.6 MG TAB PO SCH ×2 (09:00→21:01)
--- NOTE | 2017-06-23 09:17 | HHI.CCPN ---
Subjective Remarks/Hospital Course 06/15: Acute SAH with a-com aneurysm. Coiled 06/15. 06/16: BP control acceptable. Severe headache, but she gets somnolent after minimal analgesia. Some nausea and vomiting. 06/17: BP control good. Mild permissive hypertension 150s. Persistent headache and anxiety. Patient requests nicoderm patch but I am concerned about promoting unnecessary vasospasm. 06/18: Sudden onset altered mental status. Patient complaining of head ache and turning in bed, somewhat decreased level of consciousness. Transcranial Doppler did not show vasospasm today morning. Continue permissive hypertension. Stat CT of the head and CT angiogram ordered and discussed with interventional radiology Dr. Sanderson. (Dr. Yen in [place]) 06/19: Blood pressure in good range.TCDs today. Start TFs. 06/20: TCD 06/19 showed increase in the degree of vasospasm on the left, and decrease in degree of vasospasm on the right since the prior exam from one day ago. Getting CTA brain today. Remains on vasopressin and Emil-Synephrine to maintain systolic blood pressure 160-180. EVD drained 182 mL in 24 hours, ICP well controlled. UO 7L in 24 hours 06/21: Remains extremely critical. Profound shock, on 4 pressors to maintain SBP >110. On norepinephrine, dopamine, Emil-Synephrine and vasopressin. Unable to obtain target systolic blood pressure more than 160. Patient was started on Zosyn yesterday added vancomycin today. Teixeira cultures sent stress dose hydrocortisone started. Start Ben-trac monitoring. UO >12 L in 24 hours, osmolality studies not consistent with DI joseph though partial DI is possible. Check urine sp gravity and osm again. and Start scheduled DDAVP is suggestive of DI. Family updated in detail 06/22: Overnight developed worsening hypoxemia, refractory to conventional ventilator modes. With PEEP of 12 and FiO2 100% saturation remained in low 80s. Dr. Rodriguez placed on BiLevel (APPV) with improvement in oxygen saturation 90 % and no CO2 retention. I evaluated the patient with bedside ultrasound which showed moderate to large bilateral pleural effusions. Changed mode to PCV to avoid pneumothorax while placing chest tube. After this I placed 10 [place] pigtail catheter on the right side with immediate drainage of total 900 mL clear pleural fluid. Postprocedure oxygen saturation improved to 100% immediately, I was able to reduce the Insp pressure to 30. I will proceed with L pigtail chest tube after CXR confirms no complications 06/23: Remains intubated heavily sedated. Oxygenation improved after bilateral pigtail chest tube placement yesterday. R drained 1.1L and L 0.9L. lowering doses of Levophed and vasopressin. Discontinue vasopressin today Objective Vital Signs Date Time Temp Pulse Resp B/P Pulse Ox O2 Delivery O2 Flow Rate FiO2 06/23/17 08:39 96 50 06/23/17 07:00 59 06/23/17 07:00 Mechanical Ventilator 06/23/17 06:00 157/85 06/23/17 04:00 98.0 16 Intake and Output 06/22/17 06/22/17 06/22/17 07:59 15:59 23:59 Intake Total 5056 ml 2703 ml 2014 ml Output Total 1042 ml 8647 ml 1100 ml Balance 4014 ml -5944 ml 914 ml Result Diagram: 06/23/17 0400 06/23/17 0400 Other Results Microbiology Date/Time Procedure Status Source Growth 06/21/17 10:45 Urine Culture - Final Complete Urine Catheterized Urine NO GROWTH IN 48 HOURS. 06/22/17 12:50 Acid Fast Stain - Final Complete Fluid Pleural Fluid 06/22/17 12:50 Mycobacterial Culture - Final Complete Fluid Pleural Fluid Laboratory Tests Test 06/22/17 06/22/17 06/23/17 12:36 14:00 05:13 Blood Gas Puncture Site ART LINE ART LINE ART LINE Blood Gas Patient Temperature 98.6 98.6 98.6 Blood Gas HCO3 14 mmol/L 25 mmol/L 22 mmol/L (22-26) (22-26) (22-26) Blood Gas Base Excess -7.5 mmol/L 1.2 mmol/L -2.1 mmol/L (-2-2) (-2-2) (-2-2) Blood Gas Oxygen Saturation 97 % (90-100) 93 % (90-100) 94 % (90-100) Arterial Blood pH 7.59 7.47 7.39 (7.380-7.420) (7.380-7.420) (7.380-7.420) Arterial Blood Partial 15 mmHg (38-42) 35 mmHg (38-42) 38 mmHg (38-42) Pressure CO2 Arterial Blood Partial 114 mmHg 70 mmHg 82 mmHg Pressure O2 (61-120) (61-120) (61-120) Arterial Blood Oxygen Content 9.5 Vol % 12.8 Vol % 13.3 Vol % (12.0-20.0) (12.0-20.0) (12.0-20.0) Arterial Blood 1.3 % (0-4) 1.3 % (0-4) 1.0 % (0-4) Carboxyhemoglobin Arterial Blood Methemoglobin 0.8 % (0-2) 0.9 % (0-2) 0.8 % (0-2) Blood Gas Hemoglobin 6.8 G/DL 9.8 G/DL 10.0 G/DL (12.0-16.0) (12.0-16.0) (12.0-16.0) Oxygen Delivery Device VENTILATOR VENTILATOR VENTILATOR Blood Gas Ventilator Setting PC/AC PC/AC Blood Gas Inspired Oxygen 50 % 50 % 50 % Objective Remarks Gen: Sedated, ventilated, middle age woman. Critically ill on pressors and heavy sedation Head: Atraumatic. EVD in place, 152 ml in 24 hours Eyes: DORYS, Corneal + Neck: Supple, orally intubated. Lungs: Air entry diminished bilaterally with coarse breath sounds. Bilateral pigtail chest tube with no air leak Heart: RRR, no m,r. No JVD. Abdomen: Soft, nondistended, no guarding. BS active. Extremities: Mottled extremities from high-dose vasopressors Neuro: Pupils are equal reactive. Positive cough and gag. 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 - Transcranial Dopplers showing vasospasm on the left side 06/19/17, stat CTA no significant vasospasm. Since then TCD had been neg for vasospasm - CT head on 06/18/17 had shown left frontal vasogenic edema and intraparenchymal hemorrhage, rpt 06/21 unchanged - Continue vasopressors to keep systolic blood pressure 160-180 - Resume Nimotop as BP has improved, at 30 mg po q4 - Keep sodium 150-155, keep magnesium more than 2. Avoid hypoxia hypercarbia - Continue daily transcranial dopplers. - Serum osmolality, urine osmolality, urine specific gravity not consistent with DI-may have partial DI - DC DDAVP CVS: Severe shock/Septic and neurogenic - Currently on 2 pressors due to severe shock, and to maintain SBP 140-150 - Echo EF 65-70% - Remains on Levophed, vasopressin-DC vasopressin - DCd maintenance IV fluids and bicarbonate infusion 06/22. Continue 3% - Nimodipine resumed - Continue Ben Trac monitoring RESP: Acute hypoxemic respiratory failure Bilateral pleural effusion HCAP - Intubated for airway protection 06/18/17 - Change PCV to PRVC - S/p bilateral pigtail chest tubes with approximately 1 L each removed 06/22/17 - DuoNeb every 6 hours and when necessary ventilator bundle. HOB elevated. - No spontaneous breathing trials due to severe hypoxemia - Continue stress dose steroids-start tapering GI: - Restart Tube feedings, IV Protonix - Having daily bowel movements : - Sneed for accurate intake output - Electrolyte replacement per protocol - IV Lasix 40 mg x1 given ID/HEME: Neurogenic and septic shock Staph aureus pneumonia - Follow-up on blood urine and sputum culture-staph aureus - Leukocytosis slightly improved - Continue IV vancomycin and meropenem and Levaquin - ID Dr. Guerra - Sputum cx MSSA. blood cx 12/02 [facility] ENDO: Severe hypokalemia Hypomagnesemia - Electrolyte replacement per protocol - Scheduled potassium and magnesium for hypokalemia Proph: - No chemical DVT prophylaxis. - SCDs. - Protonix. Overall impression: Extensive SAH associated with ACOM aneurysm. She is critically ill, with vasospasm and respiratory failure. Large amount of blood, elevated risk for vasospasm. Now with worsening refractory septic shock on 3 pressors, and severe hypoxemic respiratory failure. Discussed at length with family at the bedside. High Mortality. family understands that patient is very critically ill with guarded prognosis. Critical care 45 mins Tona Rosen MD Jun 23, 2017 09:17
--- NOTE | 2017-06-23 09:49 | HHI.NSPN ---
(Gena Nowak) Note Status Status: Progress Note (Gena Nowak) Interval History Interval History 57-year-old female admitted 06/15/17 with acute onset severe headache. 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 06/15/17 endovascular coiling of aneurysm. 06/18/17 patient with increasing confusion, new left frontal interparenchymal hemorrhage with surrounding edema on follow-up CT scan. Patient intubated for airway control. Ventriculostomy placed. 06/20/17: Remains intubated, mechanical ventilation, intravenous sedation. 06/21/17: possible septic shock, on multiple pressors. EVD draining well, bloody CSF, ICP wnl. f/u CTA Head yesterday neg for vasospasm. TCDs this morning pending. Sedation turned off 30 mins ago when rounded, no eye opening, not following commands, no withdrawals to extremities. 06/23/17: pressors being weaned off, s/p chest tube placement for severe pleural effusions. ICPs remains wnl. EVD draining well. Remains sedated. TCD this am. (Gena Nowak) Labs, Micro, & Vital Signs Results Date Time Temp Pulse Resp B/P Pulse Ox O2 Delivery O2 Flow Rate FiO2 06/23/17 08:39 96 50 06/23/17 08:00 50 06/23/17 08:00 98.2 67 16 142/78 94 06/23/17 07:00 59 06/23/17 07:00 Mechanical Ventilator 06/23/17 06:00 109 157/85 06/23/17 04:10 96 50 06/23/17 04:00 50 06/23/17 04:00 98.0 60 16 160/87 97 06/23/17 00:30 95 50 06/23/17 00:00 97.7 59 17 146/81 97 06/23/17 00:00 50 06/22/17 23:05 95 50 06/22/17 23:00 59 06/22/17 20:31 98 50 06/22/17 20:00 98.2 60 16 154/83 97 7/25/17 20:00 50 06/22/17 19:00 96 Mechanical Ventilator 50 06/22/17 18:00 62 151/80 06/22/17 16:44 93 50 06/22/17 16:00 50 06/22/17 16:00 98.9 66 16 171/85 96 06/22/17 15:00 70 06/22/17 12:00 98.8 80 20 184/96 100 06/22/17 12:00 100 06/22/17 11:48 98 60 06/23/17 07:00 Intake Total 5841 ml Output Total 29023 ml Balance -4351 ml Constitutional Vital Signs Date Time Temp Pulse Resp B/P Pulse Ox O2 Delivery O2 Flow Rate FiO2 06/23/17 08:39 96 50 06/23/17 08:00 50 06/23/17 08:00 98.2 67 16 142/78 94 06/23/17 07:00 59 06/23/17 07:00 Mechanical Ventilator 06/23/17 06:00 109 157/85 06/23/17 04:10 96 50 06/23/17 04:00 50 06/23/17 04:00 98.0 60 16 160/87 97 06/23/17 00:30 95 50 06/23/17 00:00 97.7 59 17 146/81 97 06/23/17 00:00 50 06/22/17 23:05 95 50 06/22/17 23:00 59 06/22/17 20:31 98 50 06/22/17 20:00 98.2 60 16 154/83 97 06/22/17 20:00 50 06/22/17 19:00 96 Mechanical Ventilator 50 06/22/17 18:00 62 151/80 06/22/17 16:44 93 50 06/22/17 16:00 50 06/22/17 16:00 98.9 66 16 171/85 96 06/22/17 15:00 70 06/22/17 12:00 98.8 80 20 184/96 100 06/22/17 12:00 100 06/22/17 11:48 98 60 06/23/17 07:00 Intake Total 5841 ml Output Total 83266 ml Balance -4351 ml (Gena Nowak) Review of Systems/Exam Exam Intubated, and sedated. No eye opening, not following commands, no purposeful movements. Right EVD in place at 10 cm H20, draining well bloody CSF. ICPs < 15 CN: pupils 2 mm equal. Conjugate gaze Motor: no response to pain stimuli x 4 extremities. B/l plantar response silent Cerebellar: cannot assess due to clinical condition (Gena Nowak) Exam Intubated, and sedated. No eye opening, not following commands, no purposeful movements. Right EVD in place at 10 cm H20, draining well bloody CSF. ICPs < 15 CN: pupils 2 mm equal. Conjugate gaze Motor: no response to pain stimuli x 4 extremities. B/l plantar response silent Cerebellar: cannot assess due to clinical condition (Micah Hoff MD) Medications Current Medications Current Medications Medications (Trade) Dose Ordered Sig/Doris Route PRN Reason Start Time Stop Time Status Last Admin Dose Admin Morphine Sulfate (Morphine Inj) 2 mg Q2H PRN IV PAIN SCALE 6 TO 10 06/15/17 13:30 06/20/17 09:38 Ondansetron HCl (Zofran Inj) 4 mg Q6H PRN IV NAUSEA OR VOMITING 06/15/17 13:30 06/18/17 13:00 Miscellaneous Information 1 Q361D XX 06/15/17 13:30 Chlorhexidine Gluconate (Chlorhexidine 2% Cloth) Taper DAILY@04 TOP 06/16/17 04:00 06/12/18 03:59 06/20/17 06:10 Chlorhexidine Gluconate (Chlorhexidine 2% Cloth) 3 pack UNSCH PRN TOP HYGIENIC CARE 06/15/17 13:30 Senna/Docusate Sodium (Prabha-Colace) 1 tab BID PO 06/15/17 21:00 06/21/17 21:03 Magnesium Hydroxide (Milk Of Magnesia Liq) 30 ml Q12H PRN PO MILD - MODERATE CONSTIPATION 06/15/17 13:30 Sennosides (Senokot) 17.2 mg Q12H PRN PO MODERATE - SEVERE CONSTIPATION 06/15/17 13:30 Bisacodyl (Dulcolax Supp) 10 mg DAILY PRN RECTAL SEVERE CONSITIPATION 06/15/17 13:30 Lactulose (Lactulose Liq) 30 ml DAILY PRN PO SEVERE CONSITIPATION 06/15/17 13:30 Labetalol HCl 10 mg 10 mg Q1H PRN IV PUSH SBP > 140, DBP > 90 06/15/17 13:30 Levetriacetam/ Sodium Chloride (Keppra Inj/NS Inj) 105 ml @ 420 mls/hr Q12HR IV 06/15/17 21:00 06/22/17 21:02 Terbutaline Sulfate (Brethine Inj) 1 mg UNSCH PRN SQ For Extravasation 06/15/17 18:45 Acetaminophen/ Hydrocodone Bitart 1 tab 1 tab Q4H PRN PO pain 1-5 06/16/17 11:30 06/16/17 22:48 Potassium Chloride 100 ml @ 50 mls/hr Q2H PRN IV For Potassium 2.8 - 3.2 mEq/L 06/18/17 05:30 06/22/17 22:50 Potassium Chloride (KCl 20 Meq Premix Inj) 100 ml @ 50 mls/hr Q2H PRN IV For Potassium 2.8 - 3.2 mEq/L 06/18/17 05:30 Potassium Bicarb/ Potassium Chloride 50 meq 50 meq UNSCH PRN PO For Potassium 3.3 - 3.5 mEq/L 06/18/17 05:30 06/20/17 17:59 Potassium Chloride 100 ml @ 25 mls/hr UNSCH PRN IV For Potassium 3.3 - 3.5 mEq/L 06/18/17 05:30 Potassium Chloride 100 ml @ 50 mls/hr Q2H PRN IV For Potassium 3.3 - 3.5 mEq/L 06/18/17 05:30 Magnesium Sulfate/ Sodium Chloride (Magnesium Sulfate Inj/NS Inj) 100 ml @ 50 mls/hr UNSCH PRN IV For Magnesium 0.9 - 1.1 mg/dL 06/18/17 05:30 Magnesium Oxide 800 mg 800 mg UNSCH PRN PO For Magnesium 1.2 - 1.6 mg/dL 06/18/17 05:30 Magnesium Sulfate/ Sodium Chloride (Magnesium Sulfate Inj/NS Inj) 100 ml @ 50 mls/hr UNSCH PRN IV For Magnesium 1.2 - 1.6 mg/dL 06/18/17 05:30 06/20/17 18:28 Potassium Phosphate 2000 mg 2,000 mg Q4H PRN PO For Phosphorus < 2.5 mg/dL 06/18/17 05:30 Sodium Phosphate/ Sodium Chloride (Sodium Phosphate Inj/NS 250 ml Inj) 250 ml @ 42 mls/hr UNSCH PRN IV For Phosphorus < 2.5 mg/dL 06/18/17 05:30 06/20/17 18:51 Potassium Phosphate 2000 mg 2,000 mg UNSCH PRN PO/TUBE SEE LABEL COMMENTS 06/18/17 05:30 Potassium Phosphate 30 mmol/ Sodium Chloride 260 ml @ 42 mls/hr UNSCH PRN IV SEE LABEL COMMENTS 06/18/17 05:30 Midazolam HCl (Versed 100 Mg/ ml Inj) 100 ml @ 0 mls/hr TITRATE IV 06/18/17 22:00 06/22/17 21:01 Protein (Beneprotein Powder) 1 pack TID G-TUBE 06/19/17 13:00 06/21/17 17:11 Acetaminophen 650 mg 650 mg Q4H PRN PO Temp > 100.5 06/19/17 12:45 Sodium Chloride (NS 1000 ml Inj) 1,000 ml @ 200 mls/hr Q5H IV 06/20/17 09:00 06/22/17 05:32 Nimodipine 30 mg 30 mg Q4HR PO 06/20/17 12:00 Hold 06/21/17 03:56 Fentanyl Citrate 250 ml @ 0 mls/hr TITRATE IV 06/20/17 10:15 06/22/17 21:02 Phenylephrine HCl 160 mg/Sodium Chloride 516 ml @ 0 mls/hr TITRATE IV 06/20/17 15:15 06/22/17 05:32 Dopamine HCl/ Dextrose (DOPamine INJ PREMIX) 500 ml @ 6.401 mls/ hr TITRATE IV 06/20/17 17:30 06/20/17 18:00 Terbutaline Sulfate 1 mg 1 mg UNSCH PRN SQ For Extravasation 06/20/17 17:30 Milrinone Lactate 20 mg/Sodium Chloride 100 ml @ 12.8 mls/hr Q7H49M IV 06/21/17 05:55 06/21/17 07:12 Pharmacy Profile Note (Vancomycin Consult Pharmacy) 0 ml @ 0 mls/hr UNSCH OTHER 06/21/17 06:00 Hydrocortisone Sodium Succinate 100 mg 100 mg Q8HR IV PUSH 06/21/17 14:00 06/23/17 04:43 Levofloxacin/ Dextrose (Levaquin 750 Mg Premix Inj) 150 ml @ 100 mls/hr Q24H IV 06/21/17 10:00 06/22/17 09:19 Potassium Bicarb/ Potassium Chloride (K-Lyte Cl Eff) 25 meq Q12HR PO 06/21/17 10:00 06/22/17 21:02 Albumin Human 25 gm 25 gm Q8H IV 06/21/17 11:00 06/23/17 04:42 Sodium Bicarbonate 150 meq/Sterile Water 1,000 ml @ 150 mls/hr Q6H40M IV 06/21/17 12:00 06/21/17 19:57 Meropenem/Sodium Chloride (Merrem Inj/NS Inj) 100 ml @ 200 mls/hr Q8H IV 06/21/17 17:00 06/23/17 00:39 Miscellaneous Information SPECIFIC LAB TO BE ... ONCE ONCE .XX 06/23/17 15:45 06/23/17 15:46 Magnesium Oxide 400 mg 400 mg Q8HR PO 06/21/17 22:00 06/23/17 04:43 Norepinephrine Bitartrate 8 mg/ Sodium Chloride 500 ml @ 0 mls/hr TITRATE IV 06/21/17 19:30 06/22/17 20:31 Vancomycin HCl 1000 mg/Sodium Chloride 250 ml @ 250 mls/hr Q12H IV 06/22/17 16:00 06/23/17 05:20 Sodium Chloride/ Sodium Chloride (Sodium Chloride 23.4% Inj/NS 500 ml Inj) 500 ml @ 30 mls/hr Q16H IV 06/23/17 06:00 06/23/17 06:24 (Gena Nowak) Current Medications Current Medications Ondansetron HCl (Zofran Inj) 4 mg STK-MED ONCE .ROUTE ; Start 06/15/17 at 11:32 ; Stop 06/15/17 at 11:33; Status DC Ondansetron HCl 4 mg 4 mg ONCE ONCE IV PUSH Last administered on 06/15/17 11: 44; Start 06/15/17 at 11:45; Stop 06/15/17 at 11:46; Status DC Levetriacetam (Keppra 1000 Mg Inj) 100 ml @ 400 mls/hr BOLUS ONCE IV Last administered on 06/15/17 12:33; Start 06/15/17 at 11:45; Stop 06/15/17 at 11:59 ; Status DC Iohexol (Omnipaque 350 Inj) 75 ml STK-MED ONCE IV Last administered on 12:33; Start 06/15/17 at 12:33; Stop 06/15/17 at 12:34; Status DC Morphine Sulfate 2 mg 2 mg ONCE ONCE IV PUSH Last administered on 06/15/17 13 :00; Start 06/15/17 at 13:00; Stop 06/15/17 at 13:01; Status DC Sodium Chloride (NS 1000 ml Inj) 1,000 ml @ 75 mls/hr [id number] IV Last administered on 06/20/17 06:09; Start 06/15/17 at 13:18; Stop 06/20/17 at 17:27 ; Status DC Acetaminophen (Tylenol) 650 mg Q6H PRN PO FEVER >101F Last administered on 06/18 04:55; Start 06/15/17 at 13:30; Stop 06/19/17 at 13:00; Status DC Morphine Sulfate (Morphine Inj) 2 mg Q2H PRN IV PAIN SCALE 6 TO 10 Last administered on 06/24/17 02:39; Start 06/15/17 at 13:30; Stop 06/24/17 at 13:32 ; Status DC Pantoprazole Sodium (Protonix) 40 mg DAILY PO Last administered on 06/19/17 09 :09; Start 06/16/17 at 09:00; Stop 06/20/17 at 09:16; Status DC Ondansetron HCl (Zofran Inj) 4 mg Q6H PRN IV NAUSEA OR VOMITING Last administered on 06/18/17 13:00; Start 06/15/17 at 13:30 Miscellaneous Information 1 Q361D XX ; Start 06/15/17 at 13:30 Chlorhexidine Gluconate (Chlorhexidine 2% Cloth) Taper DAILY@04 TOP Last administered on 06/26/17 03:28; Start 06/16/17 at 04:00; Stop 06/12/18 at 03:59 Chlorhexidine Gluconate (Chlorhexidine 2% Cloth) 3 pack UNSCH PRN TOP HYGIENIC CARE; Start 06/15/17 at 13:30 Senna/Docusate Sodium (Prabha-Colace) 1 tab BID PO Last administered on 21:01; Start 06/15/17 at 21:00 Magnesium Hydroxide (Milk Of Magnesia Liq) 30 ml Q12H PRN PO MILD - MODERATE CONSTIPATION; Start 06/15/17 at 13:30 Sennosides (Senokot) 17.2 mg Q12H PRN PO MODERATE - SEVERE CONSTIPATION; Start 06/15/17 at 13:30 Bisacodyl (Dulcolax Supp) 10 mg DAILY PRN RECTAL SEVERE CONSITIPATION; Start at 13:30 Lactulose (Lactulose Liq) 30 ml DAILY PRN PO SEVERE CONSITIPATION; Start at 13:30 Labetalol HCl (Trandate Inj) 10 mg Q1H PRN IV PUSH SBP > 140, DBP > 90; Start 06/15/17 at 13:30 Nimodipine (Nimotop) 60 mg Q4HR PO Last administered on 06/20/17 08:28; Start 06/15/17 at 16:00; Stop 06/20/17 at 09:48; Status DC Fentanyl Citrate (fentaNYL INJ) 250 mcg STK-MED ONCE .ROUTE Last administered on 06/15/17 13:28; Start 06/15/17 at 13:28; Stop 06/15/17 at 13:29; Status DC Verapamil HCl 10 mg 10 mg STK-MED ONCE .ROUTE ; Start 06/15/17 at 13:40; Stop at 13:41; Status DC Levetriacetam 500 mg/Sodium Chloride 105 ml @ 420 mls/hr Q12HR IV Last administered on 06/26/17 08:32; Start 06/15/17 at 21:00 Cefazolin Sodium/ Dextrose (Ancef 2 Gm Premix) 50 ml @ As Directed STK-MED ONCE .ROUTE Last administered on 06/15/17 14:22; Start 06/15/17 at 14:22; Stop at 14:23; Status DC Verapamil HCl (Isoptin Inj) 5 mg STK-MED ONCE .ROUTE ; Start 06/15/17 at 14:43; Stop 06/15/17 at 14:44; Status DC Heparin Sodium (Porcine) 92517 units 10,000 units STK-MED ONCE .ROUTE Last administered on 06/15/17t 14:43; Start 06/15/17 at 14:43; Stop 06/15/17 at 14:44 ; Status DC Potassium Chloride 100 ml @ 50 mls/hr Q2H PRN IV For Potassium 2.8 - 3.2 mEq/L ; Start 06/15/17 at 16:15; Stop 06/18/17 at 05:21; Status DC Potassium Chloride (KCl 20 Meq Premix Inj) 100 ml @ 50 mls/hr Q2H PRN IV For Potassium 2.8 - 3.2 mEq/L; Start 06/15/17 at 16:15; Stop 06/18/17 at 05:21; Status DC Potassium Bicarb/ Potassium Chloride 50 meq 50 meq UNSCH PRN PO For Potassium 3.3 - 3.5 mEq/L; Start 06/15/17 at 16:15; Stop 06/18/17 at 05:21; Status DC Potassium Chloride 100 ml @ 25 mls/hr UNSCH PRN IV For Potassium 3.3 - 3.5 mEq /L; Start 06/15/17 at 16:15; Stop 06/18/17 at 05:21; Status DC Potassium Chloride 100 ml @ 50 mls/hr Q2H PRN IV For Potassium 3.3 - 3.5 mEq/L ; Start 06/15/17 at 16:15; Stop 06/18/17 at 05:20; Status DC Magnesium Sulfate/ Sodium Chloride (Magnesium Sulfate Inj/NS Inj) 100 ml @ 50 mls/hr UNSCH PRN IV For Magnesium 0.9 - 1.1 mg/dL; Start 06/15/17 at 16:15; Stop 06/18/17 at 05:21; Status DC Magnesium Oxide 800 mg 800 mg UNSCH PRN PO For Magnesium 1.2 - 1.6 mg/dL; Start 06/15/17 at 16:15; Stop 06/18/17 at 05:21; Status DC Magnesium Sulfate/ Sodium Chloride (Magnesium Sulfate Inj/NS Inj) 100 ml @ 50 mls/hr UNSCH PRN IV For Magnesium 1.2 - 1.6 mg/dL; Start 06/15/17 at 16:15; Stop 06/18/17 at 05:21; Status DC Potassium Phosphate 2000 mg 2,000 mg Q4H PRN PO For Phosphorus < 2.5 mg/dL; Start 06/15/17 at 16:15; Stop 06/18/17 at 05:21; Status DC Sodium Phosphate/ Sodium Chloride (Sodium Phosphate Inj/NS 250 ml Inj) 250 ml @ 42 mls/hr UNSCH PRN IV For Phosphorus < 2.5 mg/dL; Start 06/15/17 at 16:15; Stop 06/18/17 at 05:21; Status DC Potassium Phosphate 2000 mg 2,000 mg UNSCH PRN PO/TUBE SEE LABEL COMMENTS; Start 06/15/17 at 16:15; Stop 06/18/17 at 05:21; Status DC Potassium Phosphate 30 mmol/ Sodium Chloride 260 ml @ 42 mls/hr UNSCH PRN IV SEE LABEL COMMENTS; Start 06/15/17 at 16:15; Stop 06/18/17 at 05:21; Status DC Norepinephrine Bitartrate (Levophed-Dextrose Drip) 250 ml @ 0 mls/hr TITRATE IV Last administered on 06/18/17 17:29; Start 06/15/17 at 20:00; Stop 06/19/17 at 03:48; Status DC Terbutaline Sulfate 1 mg 1 mg UNSCH PRN SQ For Extravasation; Start 06/15/17 at 18:45 Nicardipine HCl/ Sodium Chloride (Cardene Inj/NS 250 ml Inj) 260 ml @ 0 mls/hr TITRATE IV ; Start 06/15/17 at 20:00; Stop 06/21/17 at 09:47; Status DC Miscellaneous Information ALL NURSING DEPARTME... UNSCH PRN .XX SEE LABEL COMMENTS; Start 06/15/17 at 17:00; Stop 06/16/17 at 16:59; Status DC Iodixanol (VISIPAQUE 320 INJ (Rad Spec)) 130 ml STK-MED ONCE I-ARTERIAL Last administered on 06/15/17 15:45; Start 06/15/17 at 15:45; Stop 06/16/17 at 10:48 ; Status DC Acetaminophen/ Hydrocodone Bitart ([place] 10-325 Mg) 1 tab Q4H PRN PO pain 1-5 Last administered on 06/16/17 22:48; Start 06/16/17 at 11:30 Potassium Chloride 20 meq 20 meq ONCE ONCE PO Last administered on 06/18/17 06:39; Start 06/18/17 at 05:30; Stop 06/18/17 at 05:31; Status DC Potassium Chloride 100 ml @ 50 mls/hr Q2H PRN IV For Potassium 2.8 - 3.2 mEq/ L Last administered on 06/26/17 05:34; Start 06/18/17 at 05:30 Potassium Chloride (KCl 20 Meq Premix Inj) 100 ml @ 50 mls/hr Q2H PRN IV For Potassium 2.8 - 3.2 mEq/L; Start 06/18/17 at 05:30 Potassium Bicarb/ Potassium Chloride 50 meq 50 meq UNSCH PRN PO For Potassium 3.3 - 3.5 mEq/L Last administered on 06/20/17 17:59; Start 06/18/17 at 05:30 Potassium Chloride 100 ml @ 25 mls/hr UNSCH PRN IV For Potassium 3.3 - 3.5 mEq /L Last administered on 06/25/17 05:40; Start 06/18/17 at 05:30 Potassium Chloride 100 ml @ 50 mls/hr Q2H PRN IV For Potassium 3.3 - 3.5 mEq/L ; Start 06/18/17 at 05:30 Magnesium Sulfate/ Sodium Chloride (Magnesium Sulfate Inj/NS Inj) 100 ml @ 50 mls/hr UNSCH PRN IV For Magnesium 0.9 - 1.1 mg/dL; Start 06/18/17 at 05:30 Magnesium Oxide 800 mg 800 mg UNSCH PRN PO For Magnesium 1.2 - 1.6 mg/dL; Start 06/18/17 at 05:30 Magnesium Sulfate/ Sodium Chloride (Magnesium Sulfate Inj/NS Inj) 100 ml @ 50 mls/hr UNSCH PRN IV For Magnesium 1.2 - 1.6 mg/dL Last administered on 18:28; Start 06/18/17 at 05:30 Potassium Phosphate 2000 mg 2,000 mg Q4H PRN PO For Phosphorus < 2.5 mg/dL; Start 06/18/17 at 05:30 Sodium Phosphate/ Sodium Chloride (Sodium Phosphate Inj/NS 250 ml Inj) 250 ml @ 42 mls/hr UNSCH PRN IV For Phosphorus < 2.5 mg/dL Last administered on 18:51; Start 06/18/17 at 05:30 Potassium Phosphate 2000 mg 2,000 mg UNSCH PRN PO/TUBE SEE LABEL COMMENTS; Start 06/18/17 at 05:30 Potassium Phosphate/Sodium Chloride (Potassium Phosphate Inj/NS 250 ml Inj) 260 ml @ 42 mls/hr UNSCH PRN IV SEE LABEL COMMENTS; Start 06/18/17 at 05:30 Lorazepam 2 mg 2 mg STK-MED ONCE .ROUTE Last administered on 06/18/17 10:32; Start 06/18/17 at 10:32; Stop 06/18/17 at 10:33; Status DC Dexmedetomidine HCl/Sodium Chloride (Precedex Inj/NS Inj) 52 ml @ 0 mls/hr TITRATE IV Last administered on 06/18/17 11:42; Start 06/18/17 at 10:45; Stop 06/21/17 at 09:43; Status DC Etomidate (Amidate Inj) 20 mg ONCE ONCE IV PUSH Last administered on 13:00; Start 06/18/17 at 12:15; Stop 06/18/17 at 12:16; Status DC Rocuronium [place] (Zemuron Inj) 50 mg BOLUS ONCE IV Last administered on 06/18 13:00; Start 06/18/17 at 12:15; Stop 06/18/17 at 12:16; Status DC Fentanyl Citrate (fentaNYL INJ) 100 mcg ONCE ONCE IV PUSH Last administered on 06/18/17 13:00; Start 06/18/17 at 12:15; Stop 06/18/17 at 12:16; Status DC Midazolam HCl 10 mg 10 mg ONCE ONCE IV PUSH Last administered on 06/18/17 12: 15; Start 06/18/17 at 12:15; Stop 06/18/17 at 12:16; Status DC Propofol (Diprivan 1000 Mg/100ml Inj) 100 ml @ As Directed STK-MED ONCE .ROUTE Last administered on 06/18/17 13:00; Start 06/18/17 at 12:51; Stop 06/18/17 at 12:52; Status DC Mannitol 25 gm 25 gm NOW ONCE IV Last administered on 06/18/17 15:00; Start 06/18/17 at 13:30; Stop 06/18/17 at 13:31; Status DC Sodium Chloride 500 ml @ 30 mls/hr Q16H IV Last administered on 06/22/17 14: 29; Start 06/18/17 at 14:00; Stop 06/23/17 at 05:27; Status DC Potassium Chloride (KCl 40 Meq Premix Inj) 100 ml @ 25 mls/hr Q4H IV Last administered on 06/18/17 17:18; Start 06/18/17 at 15:00; Stop 06/18/17 at 22:59 ; Status DC Potassium Bicarb/ Potassium Chloride 50 meq 50 meq ONCE ONCE PO Last administered on 06/18/17 15:00; Start 06/18/17 at 15:00; Stop 06/18/17 at 15:01 ; Status DC Propofol 100 ml @ As Directed STK-MED ONCE .ROUTE Last administered on 13:00; Start 06/18/17 at 16:35; Stop 06/18/17 at 16:36; Status DC Midazolam HCl 100 ml @ 0 mls/hr TITRATE IV Last administered on 06/23/17 17:28 ; Start 06/18/17 at 22:00; Stop 06/24/17 at 13:32; Status DC Norepinephrine Bitartrate 4 mg/ Sodium Chloride 250 ml @ 0 mls/hr TITRATE IV Last administered on 06/20/17 13:26; Start 06/18/17 at 22:00; Stop 06/20/17 at 17:27; Status DC Vasopressin 40 units/Dextrose 100 ml @ 1.5 mls/hr Q24H IV Last administered on 06/22/17 21:18; Start 06/18/17 at 22:01; Stop 06/23/17 at 09:12; Status DC Propofol 100 ml @ As Directed STK-MED ONCE .ROUTE ; Start 06/18/17 at 23:04; Stop 06/18/17 at 23:05; Status DC Propofol (Diprivan 1000 Mg/100ml Inj) 100 ml @ 0 mls/hr TITRATE IV Last administered on 06/21/17 05:07; Start 06/18/17 at 23:45; Stop 06/21/17 at 09:43 ; Status DC Iohexol (Omnipaque 350 Inj) 75 ml STK-MED ONCE IV Last administered on 00:55; Start 06/19/17 at 00:55; Stop 06/19/17 at 00:56; Status DC Protein (Beneprotein Powder) 1 pack TID G-TUBE Last administered on 06/26/17 14:03; Start 06/19/17 at 13:00 Terbutaline Sulfate 1 mg 1 mg UNSCH PRN SQ For Extravasation; Start 06/19/17 at 12:45; Stop 06/19/17 at 13:00; Status DC Phenylephrine HCl/ Sodium Chloride (Neosynephrine Inj/NS 500 ml Inj) 516 ml @ 0 mls/hr TITRATE IV Last administered on 06/20/17 13:27; Start 06/19/17 at 13:00 ; Stop 06/20/17 at 15:10; Status DC Acetaminophen (Tylenol 650 Mg/ 20 ml Liq) 650 mg Q4H PRN PO Temp > 100.5 Last administered on 06/26/17 11:37; Start 06/19/17 at 12:45 Iohexol 70 ml 70 ml STK-MED ONCE IV Last administered on 06/20/17 08:00; Start 06/20/17 at 08:00; Stop 06/20/17 at 08:01; Status DC Sodium Chloride 1,000 ml @ 200 mls/hr Q5H IV Last administered on 06/23/17 21 :27; Start 06/20/17 at 09:00; Stop 06/25/17 at 14:11; Status DC Sodium Chloride 1,000 ml @ 999 mls/hr BOLUS ONCE IV Last administered on 06/20 09:15; Start 06/20/17 at 09:15; Stop 06/20/17 at 10:15; Status DC Sodium Chloride (NS 1000 ml Inj) 1,000 ml @ 999 mls/hr BOLUS ONCE IV Last administered on 06/20/17 10:00; Start 06/20/17 at 09:15; Stop 06/20/17 at 10:15 ; Status DC Pantoprazole Sodium (Protonix Inj) 40 mg ONCE ONCE IV PUSH Last administered on 06/20/17 09:15; Start 06/20/17 at 09:15; Stop 06/20/17 at 09:18; Status DC Nimodipine 30 mg 30 mg Q4HR PO Last administered on 06/26/17 08:32; Start at 12:00; Stop 06/26/17 at 11:06; Status DC Fentanyl Citrate (fentaNYL DRIP) 250 ml @ 0 mls/hr TITRATE IV Last administered on 06/24/17 22:04; Start 06/20/17 at 10:15; Stop 06/26/17 at 11:05 ; Status DC Desmopressin Acetate 0.5 mcg 0.5 mcg ONCE ONCE IV Last administered on 13:15; Start 06/20/17 at 13:15; Stop 06/20/17 at 13:16; Status DC Sodium Chloride 1,000 ml @ 999 mls/hr BOLUS ONCE IV Last administered on 06/20 13:15; Start 06/20/17 at 13:15; Stop 06/20/17 at 14:15; Status DC Sodium Chloride 1,000 ml @ 999 mls/hr BOLUS ONCE IV Last administered on 06/20 13:15; Start 06/20/17 at 13:15; Stop 06/20/17 at 14:15; Status DC Phenylephrine HCl 160 mg/Sodium Chloride 516 ml @ 0 mls/hr TITRATE IV Last administered on 06/22/17 05:32; Start 06/20/17 at 15:15; Stop 06/25/17 at 14:12 ; Status DC Piperacillin Sod/ Tazobactam Sod (Zosyn 4.5 Gm Premix) 100 ml @ 200 mls/hr Q6H IV Last administered on 06/21/17 10:00; Start 06/20/17 at 16:00; Stop at 15:09; Status DC Potassium Chloride 40 meq 40 meq Q1H PO ; Start 06/20/17 at 17:00; Stop at 18:01; Status DC Potassium Chloride 100 ml @ 25 mls/hr Q4H IV Last administered on 06/20/17 18 :56; Start 06/20/17 at 17:00; Stop 06/21/17 at 00:59; Status DC Dopamine HCl/ Dextrose (DOPamine INJ PREMIX) 500 ml @ 6.401 mls/ hr TITRATE IV Last administered on 06/20/17 18:00; Start 06/20/17 at 17:30; Stop 06/24/17 at 13:32; Status DC Terbutaline Sulfate 1 mg 1 mg UNSCH PRN SQ For Extravasation; Start 06/20/17 at 17:30 Norepinephrine Bitartrate/Sodium Chloride (Levophed Inj/NS 250 ml Inj) 250 ml @ 0 mls/hr TITRATE IV Last administered on 06/21/17 06:37; Start 06/20/17 at 17: 30; Stop 06/21/17 at 19:25; Status DC Albumin Human 25 gm 25 gm NOW IV Last administered on 06/21/17 05:26; Start at 05:30; Stop 06/21/17 at 06:50; Status DC Milrinone Lactate 20 mg/Sodium Chloride 100 ml @ 12.8 mls/hr [id number] IV Last administered on 06/21/17 07:12; Start 06/21/17 at 05:55; Stop 06/25/17 at 14:12 ; Status DC Sodium Chloride 1,000 ml @ 999 mls/hr BOLUS ONCE IV Last administered on 06/21 06:37; Start 06/21/17 at 06:00; Stop 06/21/17 at 07:00; Status DC Sodium Chloride 1,000 ml @ 999 mls/hr BOLUS ONCE IV Last administered on 06/21 07:42; Start 06/21/17 at 06:00; Stop 06/21/17 at 07:00; Status DC Pharmacy Profile Note 0 ml @ 0 mls/hr UNSCH OTHER ; Start 06/21/17 at 06:00; Stop 06/25/17 at 20:14; Status DC Vancomycin HCl 1000 mg/Sodium Chloride 250 ml @ 250 mls/hr ONCE ONCE IV Last administered on 06/21/17 09:59; Start 06/21/17 at 09:00; Stop 06/21/17 at 09:59 ; Status DC Cefepime HCl/ Sodium Chloride (Maxipime Inj/NS Inj) 100 ml @ 200 mls/hr Q8H IV ; Start 06/21/17 at 08:00; Stop 06/21/17 at 09:27; Status DC Albumin Human (Albumin 5% Inj) 25 gm Q6H IV ; Start 06/21/17 at 06:00; Stop at 10:11; Status DC Hydrocortisone Sodium Succinate 100 mg 100 mg ONCE ONCE IV Last administered on 06/21/17 09:15; Start 06/21/17 at 09:15; Stop 06/21/17 at 09:16; Status DC Sodium Chloride (NS 1000 ml Inj) 1,000 ml @ 999 mls/hr Q1H1M IV Last administered on 06/21/17 08:30; Start 06/21/17 at 09:15; Stop 06/21/17 at 14:15 ; Status DC Hydrocortisone Sodium Succinate 100 mg 100 mg Q8HR IV PUSH Last administered on 06/24/17 13:45; Start 06/21/17 at 14:00; Stop 06/24/17 at 13:57; Status DC Levofloxacin/ Dextrose (Levaquin 750 Mg Premix Inj) 150 ml @ 100 mls/hr Q24H IV Last administered on 06/25/17 09:32; Start 06/21/17 at 10:00; Stop at 20:14; Status DC Potassium Bicarb/ Potassium Chloride (K-Lyte Cl Eff) 25 meq Q12HR PO Last administered on 06/25/17 21:52; Start 06/21/17 at 10:00 Albuterol/ Ipratropium (Duoneb Neb) 1 ampule Q4HR NEB NEB Last administered on 06/26/17 08:35; Start 06/21/17 at 12:00; Stop 06/26/17 at 10:56; Status DC Albuterol/ Ipratropium 1 ampule 1 ampule Q2HR NEB PRN NEB SHORTNESS OF BREATH; Start 06/21/17 at 10:00 Calcium Chloride/ Sodium Chloride (Calcium Chloride Inj/NS Inj) 110 ml @ 110 mls/hr ONCE ONCE IV Last administered on 06/21/17 11:00; Start 06/21/17 at 11 :00; Stop 06/21/17 at 11:59; Status DC Albumin Human 25 gm 25 gm Q8H IV Last administered on 06/26/17 11:36; Start at 11:00 Sodium Bicarbonate 50 ml @ As Directed STK-MED ONCE .ROUTE Last administered on 06/21/17 12:00; Start 06/21/17 at 10:28; Stop 06/21/17 at 10:29; Status DC Sodium Bicarbonate 150 meq/Sterile Water 1,000 ml @ 150 mls/hr Q6H40M IV Last administered on 06/21/17 19:57; Start 06/21/17 at 12:00; Stop 06/24/17 at 13:34 ; Status DC Sodium Bicarbonate (Sodium Bicarbonate 8.4% Inj) 50 ml @ As Directed STK-MED ONCE .ROUTE Last administered on 06/21/17 10:30; Start 06/21/17 at 12:06; Stop 06/21/17 at 12:07; Status DC Desmopressin Acetate (Ddavp Inj) 1 mcg ONCE ONCE IV Last administered on 15:00; Start 06/21/17 at 15:00; Stop 06/21/17 at 15:01; Status DC Miscellaneous Medication (ASP Crit: Other exception documentation) 1 UNSCH X1 PRN .XX PHARMACY DOCUMENTATION; Start 06/21/17 at 15:15; Stop 06/22/17 at 15:14 ; Status DC Miscellaneous Medication 1 1 UNSCH X1 PRN XX PHARMACY DOCUMENTATION; Start at 15:15; Stop 06/22/17 at 15:14; Status DC Meropenem 1000 mg/ Sodium Chloride 100 ml @ 200 mls/hr Q8H IV Last administered on 06/24/17 08:21; Start 06/21/17 at 17:00; Stop 06/24/17 at 17:26 ; Status DC Vancomycin HCl/ Sodium Chloride (Vancomycin Inj/ NS 250 ml Inj) 250 ml @ 250 mls/hr Q18H IV Last administered on 06/22/17 04:29; Start 06/22/17 at 04:00; Stop 06/22/17 at 13:16; Status DC Miscellaneous Information SPECIFIC LAB TO BE MADELINE... ONCE ONCE .XX Last administered on 06/23/17 15:45; Start 06/23/17 at 15:45; Stop 06/23/17 at 16:33 ; Status DC Potassium Chloride 100 ml @ 25 mls/hr Q4H IV Last administered on 06/21/17 22 :02; Start 06/21/17 at 18:00; Stop 06/22/17 at 01:59; Status DC Magnesium Sulfate/ Dextrose (Magnesium Sulfate 1 Gm Premix) 100 ml @ 100 mls/ hr Q1H IV ; Start 06/21/17 at 18:00; Stop 06/21/17 at 19:59; Status DC Magnesium Oxide (Mag-Ox) 400 mg Q8HR PO Last administered on 06/26/17 14:40; Start 06/21/17 at 22:00 Desmopressin Acetate 1 mcg 1 mcg Q12HR IV PUSH Last administered on 06/21/17 22:01; Start 06/21/17 at 21:00; Stop 06/23/17 at 09:13; Status DC Norepinephrine Bitartrate/Sodium Chloride (Levophed Inj/NS 500 ml Inj) 500 ml @ 0 mls/hr TITRATE IV Last administered on 06/23/17 12:34; Start 06/21/17 at 19: 30; Stop 06/25/17 at 14:12; Status DC Alteplase, Recombinant (Cathflo Activase Inj) 2 mg UNSCH X1 PRN IV FLUSH PORT FLUSH; Start 06/21/17 at 21:15; Stop 06/22/17 at 23:59; Status DC Furosemide (Lasix Inj) 80 mg STK-MED ONCE .ROUTE Last administered on 06:50; Start 06/22/17 at 06:50; Stop 06/22/17 at 06:51; Status DC Bumetanide (Bumex Inj) 2 mg NOW IV PUSH ; Start 06/22/17 at 07:00; Stop at 09:00; Status DC Rocuronium [place] (Zemuron Inj) 50 mg STK-MED ONCE .ROUTE ; Start 06/22/17 at 06:53; Stop 06/22/17 at 06:54; Status DC Propofol (Diprivan 200 Mg/20 ml Inj) 20 mg STK-MED ONCE IV ; Start 06/15/17 at 07:31; Stop 06/22/17 at 07:32; Status DC Ondansetron HCl (Zofran Inj) 4 mg STK-MED ONCE IV PUSH ; Start 06/15/17 at 07:31 ; Stop 06/22/17 at 07:32; Status DC Furosemide (Lasix Inj) 80 mg NOW ONCE IV PUSH ; Start 06/22/17 at 07:45; Stop 06/22/17 at 07:46; Status DC Rocuronium [place] 15 mg 15 mg STAT ONCE IV PUSH ; Start 06/22/17 at 07:45; Stop 06/22/17 at 07:46; Status DC Vancomycin HCl 1000 mg/Sodium Chloride 250 ml @ 250 mls/hr Q12H IV Last administered on 06/23/17 16:16; Start 06/22/17 at 16:00; Stop 06/23/17 at 21:14 ; Status DC Calcium Gluconate 2 gm/Dextrose 120 ml @ 120 mls/hr ONCE ONCE IV Last administered on 06/22/17 14:18; Start 06/22/17 at 15:00; Stop 06/22/17 at 15:59 ; Status DC Sodium Chloride 176 meq/Sodium Chloride 500 ml @ 30 mls/hr Q16H IV Last administered on 06/23/17 21:19; Start 06/23/17 at 06:00 Vancomycin HCl/ Sodium Chloride (Vancomycin Inj/ NS 250 ml Inj) 262 ml @ 250 mls/hr Q12H IV Last administered on 06/25/17 04:18; Start 06/24/17 at 04:00; Stop 06/25/17 at 09:16; Status DC Miscellaneous Information SPECIFIC LAB TO BE DRAWN:VANCO TROUGH DATE TO BE DR... ONCE ONCE .XX Last administered on 06/25/17 04:17; Start 06/25/17 at 03 :45; Stop 06/25/17 at 03:46; Status DC Propofol 100 ml @ 0 mls/hr TITRATE IV Last administered on 06/26/17 03:31; Start 06/24/17 at 13:45 Sodium Chloride (NS 1000 ml Inj) 1,000 ml @ 84 mls/hr [id number] IV Last administered on 06/25/17 13:35; Start 06/24/17 at 13:45; Stop 06/25/17 at 14:12 ; Status DC Hydrocortisone Sodium Succinate 50 mg 50 mg Q8HR IV PUSH Last administered on 05:33; Start 06/24/17 at 15:15; Stop 06/26/17 at 11:06; Status DC Cefazolin Sodium/ Dextrose 50 ml @ 100 mls/hr Q8H IV Last administered on 06/26 08:32; Start 06/24/17 at 18:00 Vancomycin HCl/ Sodium Chloride (Vancomycin Inj/ NS 250 ml Inj) 262.5 ml @ 250 mls/hr Q12H IV Last administered on 06/25/17 16:00; Start 06/25/17 at 16:00; Stop 06/25/17 at 20:14; Status DC Miscellaneous Information SPECIFIC LAB TO BE ... ONCE ONCE .XX ; Start 06/26 at 15:45; Stop 06/26/17 at 15:45; Status DC Bumetanide (Bumex Inj) 2 mg ONCE ONCE IV PUSH Last administered on 06/25/17 14:15; Start 06/25/17 at 14:15; Stop 06/25/17 at 14:16; Status DC Potassium Bicarb/ Potassium Chloride 25 meq 25 meq ONCE ONCE PO Last administered on 06/25/17 14:15; Start 06/25/17 at 14:15; Stop 06/25/17 at 14:16 ; Status DC Nicardipine HCl 25 mg/Sodium Chloride 260 ml @ 0 mls/hr TITRATE IV Last administered on 06/26/17 08:32; Start 06/25/17 at 18:00 Metronidazole (Flagyl 500 Mg Inj) 100 ml @ 100 mls/hr Q8H IV Last administered on 06/26/17 11:37; Start 06/26/17 at 12:00 Albuterol/ Ipratropium (Duoneb Neb) 1 ampule Q6HR NEB NEB ; Start 06/26/17 at 16:00; Stop 06/26/17 at 16:00; Status DC Bumetanide (Bumex Inj) 1 mg ONCE ONCE IV PUSH Last administered on 06/26/17 11:37; Start 06/26/17 at 12:00; Stop 06/26/17 at 12:01; Status DC Potassium Bicarb/ Potassium Chloride 25 meq 25 meq ONCE ONCE PO Last administered on 06/26/17 11:37; Start 06/26/17 at 11:30; Stop 06/26/17 at 11:31 ; Status DC Potassium Chloride (KCl 20 Meq Premix Inj) 100 ml @ 50 mls/hr BOLUS ONCE IV Last administered on 06/26/17 11:38; Start 06/26/17 at 11:00; Stop 06/26/17 at 12:59; Status DC Nimodipine (Nimotop) 60 mg Q4HR PO Last administered on 06/26/17 11:38; Start 06/26/17 at 12:00 Albuterol/ Ipratropium (Duoneb Neb) 1 ampule Q6HR NEB NEB Last administered on 06/26/17 11:41; Start 06/26/17 at 11:15 (Micah Hoff MD) Medical Decision Making [facility] Remarks 57 y/o female with 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 Continue neuro checks. Nimodipine, ventric, TCD, Keppra. lowering doses of Levophed and vasopressin. Pulmonary. Oxygenation improved after bilateral pigtail chest tube placement yesterday. R drained 1.1L and L 0.9L. Cont mechanical ventilation, aggressive pulmonary toilette, nasotracheal suction, and breathing treatments with nebulizers. Daily PT and OT Nutrition. Tube feeding Renal. monitor closely urine output, BUN and creatinine Endocrine. Monitor serial Acu checks and SSI as needed in detail ID monitor for signs of infection Protonix for stress ulcer prophylaxis Wade hose and SCD's for DVT prophylaxis The exam, history, and the medical decision-making described in the above note were completed with the assistance of the mid-level provider. I reviewed and agree with the findings presented. I attest that I had a [id number] encounter with the patient on the same day, and personally performed and documented my assessment and findings in the medical record. (Micah Hoff MD) Gena Nowak Jun 23, 2017 09:49 Micah Hoff MD Jun 26, 2017 15:04
--- NOTE | 2017-06-23 09:52 | RADRPT ---
EXAM DATE/TIME: 06/23/2017 07:30 [place] COMPARISON: US TRANSCRANIAL DOPPLER COMPLETE, June 22, 2017, 8:50. INDICATIONS : Subarachnoid hemorrhage. MEDICAL HISTORY : Hypertension. Arthritis. Subarachnoid hemorrhage. Weakness. SURGICAL HISTORY : Aneurysm coil. Tubal ligation. ENCOUNTER: Sequela ACUITY: 1 week PAIN SCORE: Nonresponsive. LOCATION: cranial Current Exam: Jun 23, 2017 [place] Ratio: Right: 2.6 Left: 2.6 Fern[place]dez Ratio: Right: 0.9 Left: 1.6 Previous Exam: Jun 22, 2017 [place] Ratio: Right: 2.0 Left: 2.9 Fernández Ratio: Right: 1.1 Left: 1.6 FINDINGS: Examination performed at bedside. Real-time ultrasound with the assistance of color and spectral Dop pler was utilized to evaluate the intracerebral circulation. Time-averaged maximal velocities are ca lculated in cm/s. [place] and Fernández ratios are normal and stable bilaterally. No Doppler findings of vasospasm. CONCLUSION: 1. Stable examination without evidence for vasospasm. Brown Schuler MD on June 23, 2017 at 9:47 Board Certified Radiologist. This report was verified electronically.
[2017-06-23] MEDS: fentaNYL 2,500 MCG/NS 250 ML IV SCH ×2 (09:58→17:27)
[2017-06-23] MEDS: levETIRAcetam INJ 500 MG in SODIUM CHLORIDE 0.9% INJ 100 ML IV SCH ×2 (09:58→20:49)
[2017-06-23] MEDS: LEVOFLOXACIN 750 MG PREMIX INJ 150 ML IV SCH (09:59)
[2017-06-23 10:07] LABS: CALCIUM-PROTEIN CORRECTED 8.9 MG/DL (8.5-10.1)
[2017-06-23] MEDS: niMODipine 30 MG CAP PO SCH ×3 (11:40→20:00)
[2017-06-23] MEDS: NOREPINEPHRINE INJ 8 MG in SODIUM CHLORID 0.9% 500 ML INJ 492 ML IV SCH (12:34)
[2017-06-23] MEDS ORDERED: PHARMACY ORDERED LAB ONE (15:45)
[2017-06-23 16:55] LABS: ALT (GPT) 89 U/L (10-53); ANION GAP 7 MEQ/L (5-15); AST (GOT) 50 U/L (15-37); BICARBONATE 24.9 MEQ/L (21.0-32.0); BLOOD UREA NITROGEN 23 MG/DL (7-18); CHLORIDE 122 MEQ/L (98-107); GLOMERULAR FILTRATION RATE 126 ML/MIN (>89); POTASSIUM 4.3 MEQ/L (3.5-5.1); SODIUM (NA) 154 MEQ/L (136-145)
[2017-06-23 16:57] LABS: ALKALINE PHOSPHATASE 80 U/L (45-117); TOTAL BILIRUBIN ADULT 0.7 MG/DL (0.2-1.0)
[2017-06-23] MEDS: MIDAZOLAM 100 MG/ML INJ 100 ML IV SCH (17:28)
--- NOTE | 2017-06-23 19:18 | HHI.IDPN ---
Subjective Subjective Remarks Ms. Nevarez is a 57-year-old female with past medical history significant for hypertension who presented to the emergency department with complaints of headache and bilateral lower extremity weakness. Patient's reported to the ER physician the patient was normal on the day of admission and suddenly started having very bad headache followed by tingling bilateral lower extremity. She also had nausea on admission with no vomiting fever or chest pain. On June 15, 2017 patient was admitted to the hospital with diagnosis of acute subarachnoid hemorrhage due to aneurysm. This was coiled on June [address] Yen. Per review of records it appears that on June 16 patient continued to have severe headache was somnolent and had nausea and vomiting. Her intracranial pressure was monitored by transcranial ultrasound. On June 18 patient had sudden onset and of altered mental status. Vladimir that she was complaining of headache as turning in bed. A transcranial Doppler initially did not show any vasospasm. A stat CT of the head and CT angiogram was ordered. Patient underwent placement of a external ventricular device on June 20, 2017. Due to fevers patient was started on empiric Zosyn and vancomycin pending cultures. She also received stress dose hydrocortisone. It appears that on June 21 she developed fevers and tachycardia profound shock requiring 4 pressors to maintain systolic blood pressure. At the time of my evaluation patient is on norepinephrine, dopamine, Emil-Synephrine and vasopressin at max doses. Patient is currently being treated for diabetes insipidus. At the time of my evaluation patient is in the ICU on max dose 4 pressors. Urine output is adequate. Patient is off sedation but no meaningful response and therefore is being taken for a stat CT scan of the brain. Chest x-ray shows bilateral infiltrate. Dr. Rosen informs me that an ultrasound bedside is suggestive of consolidation. Infectious disease is consulted for evaluation and management of septic shock and possible healthcare associated pneumonia. Overnight events reviewed No fevers remains intubated and sedated. No change in neuro status. Almost off pressors. On 1 rosalba Emil. No diarrhea Some segovia secretions. ICP pressures in normal range. Pigtail CTs in place bilaterally Antibiotics Meropenem IV Vanco IV Levaquin IV Lines Line sites with no e.o infection. Past Medical History Hypertension Tubal ligation Coiling of the aneurysm this admission. External ventricular device placement. Allergies: Coded Allergies: No Known Allergies (Verified , 3/29/16) Objective . Vital Signs Date Time Temp Pulse Resp B/P Pulse Ox O2 Delivery O2 Flow Rate FiO2 06/23/17 19:00 Mechanical Ventilator 50 06/23/17 18:00 79 06/23/17 17:40 95 60 06/23/17 16:00 70 06/23/17 16:00 98.4 79 16 153/77 96 06/23/17 15:00 83 06/23/17 12:14 94 80 06/23/17 12:00 80 06/23/17 12:00 97.7 73 16 122/62 88 06/23/17 08:39 96 50 06/23/17 08:00 50 06/23/17 08:00 98.2 67 16 142/78 94 06/23/17 07:00 59 06/23/17 07:00 Mechanical Ventilator 06/23/17 06:00 109 157/85 06/23/17 04:10 96 50 06/23/17 04:00 50 06/23/17 04:00 98.0 60 16 160/87 97 06/23/17 00:30 95 50 06/23/17 00:00 97.7 59 17 146/81 97 06/23/17 00:00 50 06/22/17 23:05 95 50 06/22/17 23:00 59 06/22/17 20:31 98 50 06/22/17 20:00 98.2 60 16 154/83 97 06/22/17 20:00 50 06/22/17 06/22/17 06/23/17 14:59 22:59 06:59 Intake Total 2703 ml 2014 ml 1124 ml Output Total 8647 ml 1100 ml 445 ml Balance -5944 ml 914 ml 679 ml IV Total 2203 ml 1954 ml 1064 ml Tube Feeding 0 ml 0 ml Packed Cells 500 ml Other 60 ml 60 ml Output Urine Total 6425 ml 875 ml 200 ml Stool Total 500 ml 50 ml 0 ml Tube Feeding Residual Discard 0 ml Chest Tube Drainage Total 1680 ml 120 ml 190 ml Drainage Total 42 ml 55 ml 55 ml . Laboratory Tests Test 06/22/17 06/22/17 06/23/17 05:10 13:20 04:00 White Blood Count 17.1 TH/MM3 20.4 TH/MM3 21.3 TH/MM3 Red Blood Count 2.21 MIL/MM3 3.15 MIL/MM3 3.28 MIL/MM3 Hemoglobin 6.8 GM/DL 10.1 GM/DL 10.2 GM/DL Hematocrit 20.5 % 27.7 % 29.4 % Mean Corpuscular Volume 92.6 FL 87.8 FL 89.7 FL Mean Corpuscular Hemoglobin 30.8 PG 32.2 PG 31.2 PG Mean Corpuscular Hemoglobin 33.3 % 36.6 % 34.8 % Concent Red Cell Distribution Width 13.7 % 14.0 % 14.4 % Platelet Count 205 TH/MM3 198 TH/MM3 192 TH/MM3 Mean Platelet Volume 8.4 FL 9.3 FL 9.7 FL Neutrophils (%) (Auto) 86.9 % 87.4 % 90.8 % Lymphocytes (%) (Auto) 7.4 % 8.0 % 5.0 % Monocytes (%) (Auto) 5.5 % 4.3 % 4.0 % Eosinophils (%) (Auto) 0.0 % 0.1 % 0.0 % Basophils (%) (Auto) 0.2 % 0.2 % 0.2 % Neutrophils # (Auto) 14.9 TH/MM3 17.8 TH/MM3 19.3 TH/MM3 Lymphocytes # (Auto) 1.3 TH/MM3 1.6 TH/MM3 1.1 TH/MM3 Monocytes # (Auto) 0.9 TH/MM3 0.9 TH/MM3 0.9 TH/MM3 Eosinophils # (Auto) 0.0 TH/MM3 0.0 TH/MM3 0.0 TH/MM3 Basophils # (Auto) 0.0 TH/MM3 0.0 TH/MM3 0.0 TH/MM3 CBC Comment DIFF FINAL AUTO DIFF DIFF FINAL Differential Comment FINAL DIFF MANUAL Differential Total Cells 100 Counted Neutrophils % (Manual) 79 % Band Neutrophils % 8 % Lymphocytes % 7 % Monocytes % 6 % Neutrophils # (Manual) 17.7 TH/MM3 Nucleated Red Blood Cells 1 /100 WBC Platelet Estimate NORMAL Platelet Morphology Comment NORMAL Spherocytes 1+ Ovalocytes 1+ Laboratory Tests Test 06/21/17 06/21/17 06/22/17 06/22/17 22:50 23:15 05:10 12:15 Sodium Level 148 MEQ/L 150 MEQ/L 147 MEQ/L Potassium Level 3.1 MEQ/L 4.5 MEQ/L Chloride Level 114 MEQ/L 120 MEQ/L Carbon Dioxide Level 26.7 MEQ/L 23.9 MEQ/L Anion Gap 7 MEQ/L 6 MEQ/L Blood Urea Nitrogen 5 MG/DL 9 MG/DL Creatinine 0.32 MG/DL 0.40 MG/DL Estimat Glomerular Filtration 211 ML/MIN 163 ML/MIN Rate Random Glucose 129 MG/DL 116 MG/DL Serum Osmolality 299 MOSM/KG 306 MOSM/KG Calcium Level 6.9 MG/DL 6.5 MG/DL Protein Corrected Calcium 7.7 MG/DL 7.4 MG/DL Magnesium Level 1.8 MG/DL Total Bilirubin 0.8 MG/DL Aspartate Amino Transf 12 U/L (AST/SGOT) Alanine Aminotransferase 23 U/L (ALT/SGPT) Alkaline Phosphatase 64 U/L Total Protein 5.6 GM/DL 5.2 GM/DL Albumin 2.9 GM/DL Lactic Acid Level 1.5 mmol/L Test 06/22/17 06/23/17 06/23/17 13:20 04:00 15:45 Sodium Level 148 MEQ/L 150 MEQ/L 154 MEQ/L Potassium Level 2.5 MEQ/L 5.0 MEQ/L 4.3 MEQ/L Chloride Level 111 MEQ/L 119 MEQ/L 122 MEQ/L Carbon Dioxide Level 25.5 MEQ/L 21.5 MEQ/L 24.9 MEQ/L Anion Gap 12 MEQ/L 10 MEQ/L 7 MEQ/L Blood Urea Nitrogen 10 MG/DL 23 MG/DL 23 MG/DL Creatinine 0.43 MG/DL 0.49 MG/DL 0.50 MG/DL Estimat Glomerular Filtration 150 ML/MIN 129 ML/MIN 126 ML/MIN Rate Random Glucose 117 MG/DL 148 MG/DL 128 MG/DL Calcium Level 7.4 MG/DL 7.8 MG/DL 8.0 MG/DL Protein Corrected Calcium 8.0 MG/DL 8.9 MG/DL Magnesium Level 1.7 MG/DL 2.0 MG/DL Total Bilirubin 1.9 MG/DL 1.1 MG/DL 0.7 MG/DL Aspartate Amino Transf 227 U/L 109 U/L 50 U/L (AST/SGOT) Alanine Aminotransferase 172 U/L 129 U/L 89 U/L (ALT/SGPT) Alkaline Phosphatase 79 U/L 100 U/L 80 U/L Total Protein 6.0 GM/DL 5.2 GM/DL 5.4 GM/DL Albumin 3.3 GM/DL 3.0 GM/DL 3.2 GM/DL Phosphorus Level 1.4 MG/DL Microbiology Date/Time Procedure Status Source Growth 06/21/17 10:45 Gram Stain - Final Resulted Sputum Endotracheal 06/21/17 10:45 Sputum Culture - Preliminary Resulted Staphylococcus Aureus 06/21/17 10:45 Urine Culture - Final Complete Urine Catheterized Urine NO GROWTH IN 48 HOURS. 06/21/17 12:24 Aerobic Blood Culture - Preliminary Resulted Blood Peripheral NO GROWTH IN 2 DAYS 06/21/17 12:24 Anaerobic Blood Culture - Preliminary Resulted Blood Peripheral NO GROWTH IN 2 DAYS 06/21/17 12:24 Aerobic Blood Culture - Preliminary Resulted Blood Peripheral Staph Sp Coagulase Negative 06/21/17 12:24 Anaerobic Blood Culture - Preliminary Resulted Blood Peripheral NO GROWTH IN 2 DAYS 06/22/17 08:00 Gram Stain - Final Resulted Fluid Pleural Fluid 06/22/17 08:00 Body Fluid Culture - Preliminary Resulted Fluid Pleural Fluid NO GROWTH IN 24 HOURS. 06/22/17 08:00 Acid Fast Stain - Final Resulted Fluid Pleural Fluid NO ACID FAST BACILLI SEEN 06/22/17 08:00 Mycobacterial Culture Resulted Fluid Pleural Fluid Pending 06/22/17 08:00 Fungal Smear - Final Resulted Fluid Pleural Fluid NO FUNGAL ELEMENTS SEEN. 06/22/17 08:00 Fungal Culture Resulted Fluid Pleural Fluid Pending 06/22/17 12:50 Gram Stain - Final Resulted Fluid Pleural Fluid 06/22/17 12:50 Body Fluid Culture - Preliminary Resulted Fluid Pleural Fluid NO GROWTH IN 24 HOURS. 06/22/17 12:50 Acid Fast Stain - Final Complete Fluid Pleural Fluid 06/22/17 12:50 Mycobacterial Culture - Final Complete Fluid Pleural Fluid 06/22/17 12:50 Fungal Smear - Final Resulted Fluid Pleural Fluid NO FUNGAL ELEMENTS SEEN. 06/22/17 12:50 Fungal Culture Resulted Fluid Pleural Fluid Pending Imaging Last Impressions Chest X-Ray 06/22/17 0600 Signed Impressions: Service Date/Time: Thursday, June 22, 2017 05:36 - CONCLUSION: Stable chest x-ray with severe left midlung zone airspace consolidation and small bilateral pleural effusions. Silas Ortez MD Transcranial Doppler Study Complete 06/22/17 0000 Signed Impressions: Service Date/Time: Thursday, June 22, 2017 08:50 - CONCLUSION: No Doppler findings of vasospasm. Normal ratios bilaterally. William Brizuela MD Head CT 06/21/17 0000 Signed Impressions: Service Date/Time: Wednesday, June 21, 2017 15:49 - CONCLUSION: Evolving intracranial hemorrhage. Nothing to suggest new hemorrhage. Silas Mtz MD Head CTA 06/20/17 0600 Signed Impressions: Service Date/Time: Tuesday, June 20, 2017 07:52 - CONCLUSION: No evidence for any significant spasm. KJesse Montez MD Neck CTA 06/15/17 1125 Signed Impressions: Service Date/Time: Thursday, June 15, 2017 12:10 - CONCLUSION: 1. No stenosis of either carotid artery. 2. No aneurysm seen. 3. Normal variants of the aortic arch. Pascual Sanderson MD Cerebral Arteriogram 06/15/17 0000 Signed Impressions: Service Date/Time: Thursday, June 15, 2017 13:11 - CONCLUSION: 1. 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 2. No significant vasospasm seen on the left. 3. I spoke with Dr. Yen immediately following the procedure. Emile Walker Jr., MD Physical Exam GENERAL: This is a well-nourished, well-developed patient, in no apparent distress. SKIN: No rashes, ecchymoses or lesions. Cool and dry. HEAD: EVD in place with no e.o infection. EYES:. No scleral icterus. No injection or drainage. ENT: Nose without bleeding, purulent drainage or septal hematoma. Throat without erythema, tonsillar hypertrophy or exudate. Uvula midline. Airway patent. NECK: Trachea midline. Supple, nontender, no meningeal signs. CARDIOVASCULAR: Regular rate and rhythm without murmurs, gallops, or rubs. RESPIRATORY: Clear to auscultation. Breath sounds equal bilaterally. No wheezes , rales, or rhonchi. GASTROINTESTINAL: Abdomen soft, non-tender, nondistended. MUSCULOSKELETAL: Extremities without clubbing, cyanosis, or edema. NEUROLOGICAL: Off sedation with no meaningful response. No response to threat. Psych could not be assessed IV line sites with no evidence of infection. Assessment & Plan Remarks Septic Shock (fever, leucocytosis, shock, source: Pneumonia) Aspiration Pneumonia on admission. Possible HCAP. Acute resp failure on vent Acute encephalopathy: Acute SAH, metabolic, infection. Acute SAH s/p aneurysm coiling. Possible DI m'ment per [facility] . Recs: Continue Meropenem IV (ASP: worsening septic shock, ? MDRO) Continue Vanco IV (target trough 15-20 for Pneumonia) Continue Levaquin IV (covers atypical and other resistant GNR) Repeat bcx today Follow cultures, including pleural fluid Cx Follow clinically. Critically ill. Will deescalate in am. d/w and RN for pt. Claire Guerra MD Jun 23, 2017 19:18
[2017-06-24] VITALS (16 sets, daily range): BP systolic 152–166; BP diastolic 71–85; PULSE 75–82; RESP 16–19; TEMP 97.6–98.9; O2SAT 91–99
[2017-06-24] MEDS: MEROPENEM INJ 1,000 MG in SODIUM CHLORIDE 0.9% INJ 100 ML IV SCH ×2 (00:02→08:21)
[2017-06-24] MEDS: SODIUM CHLOR 0.9% 1000 ML INJ 1,000 ML IV SCH ×3 (02:27→22:27)
[2017-06-24] MEDS: ALBUMIN HUMAN 25% 25 GM/100 ML BAGP IV SCH ×3 (02:37→17:45)
[2017-06-24] MEDS: MORPHINE SULFATE 4 MG/ML INJ IV PRN (02:39)
[2017-06-24] MEDS: RESP: ALBUTEROL 2.5 MG/IPRATROPIUM 0.5 MG NEB (SCH) NEB ×6 (03:37→23:27)
[2017-06-24] MEDS: VANCOMYCIN INJ 1,200 MG in SODIUM CHLOR 0.9% 250 ML INJ 250 ML IV SCH ×2 (03:44→17:45)
[2017-06-24] MEDS: niMODipine 30 MG CAP PO SCH ×6 (03:48→20:23)
[2017-06-24] MEDS: MILRINONE INJ 20 MG in SODIUM CHLORIDE 0.9% INJ 80 ML IV SCH ×3 (04:00→17:49)
[2017-06-24] MEDS: CHLORHEXIDINE GLUCONATE 2 % 1 PACK (2 CLOTHS) TOP SCH (04:00)
[2017-06-24] MEDS: HYDROCORTISONE SOD SUCCINATE 100 MG VIAL IV PUSH SCH ×4 (04:53→21:26)
[2017-06-24] MEDS: MAGNESIUM OXIDE 400 MG TAB PO SCH ×3 (04:53→22:54)
[2017-06-24] MEDS: fentaNYL 2,500 MCG/NS 250 ML IV SCH ×2 (04:53→22:04)
[2017-06-24] MEDS: SODIUM BICARBONATE 8.4% INJ 150 MEQ in WATER STERILE FOR INJ 850 ML IV SCH ×4 (06:40→12:51)
[2017-06-24] MEDS: BENEPROTEIN POWDER 1 PACK G-TUBE SCH ×3 (08:20→17:45)
[2017-06-24] MEDS: POTASSIUM CHLORIDE 25 MEQ EFFERVESCENT TAB PO SCH ×2 (08:20→20:24)
[2017-06-24] MEDS: levETIRAcetam INJ 500 MG in SODIUM CHLORIDE 0.9% INJ 100 ML IV SCH ×2 (08:21→20:23)
[2017-06-24] MEDS: DOCUSATE SODIUM 50 MG/SENNA 8.6 MG TAB PO SCH ×2 (08:21→20:24)
--- NOTE | 2017-06-24 09:22 | HHI.NSPN ---
History Chief Complaint: Unable to obtain due to patient's clinical condition. Interval History This 57-year-old right-handed female had the acute onset of severe headache early this morning and also complained of weakness in her legs, left more than right, along with paresthesias and subsequently became more lethargic. She was found on the floor by her with positive complaints of nausea. On arrival to the emergency room she was lethargic but responsive. CT scan of the head obtained reveals extensive diffuse subarachnoid hemorrhage involving the basal cisterns and also extending into the bilateral sylvian fissure and interhemispheric fissure and prepontine fissure along with suprasellar cistern. There is also mild hydrocephalus associated with this and slight dilation of the temporal horns bilaterally. 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 The patient is lethargic but does respond to verbal commands and follows simple instructions. 06/16/17: 5x4x3 mm ACOM aneurysm successfully treated with coil embolization on 06/15/17. No significant vasospasm seen involving the left intracranial vasculature per interventional radiology. Pt awakens to voice. Complains of headache all over. Has nausea and had episode of vomiting last night. Pt denies any paresthesias or weakness. She is lethargic and prefers her eyes closed, but awakens to voice. 06/17/17: Pt awake more alert this afternoon. Complains of headache all over. Nausea. Pt was up in chair earlier. Follows commands well. 06/18/17: Pt currently sedated for a STAT CT head that was ordered by critical care. Discussed with critical care and pt was acting restless and more confused but was following commands and gripping hands symmetrically. A follow up CT was obtained which revealed a new left frontal intraparenchymal hemorrhage with surrounding edema. Critical care is going to intubate pt for airway control and Dr. Yen is going to place a ventriculostomy drain. 06/19: Patient remains intubated and mechanically ventilated. She is on propofol 50 mcg/kg/min and midazolam 4 mL/hr for sedation. She has 3% saline infusing. She is on vasopressin at 6 mL/hr for blood pressure support. Nursing reports that she drain 75 mL from the ventriculostomy at 1400. This morning during a sedation vacation the patient did open her eyes to voice. She also reports that the patient's ICP has been running 5 to 8 but will go up to 10 when the ventriculostomy system is clamped or the patient is repositioned. 06/20/17: Remains intubated, mechanical ventilation, intravenous sedation. 06/21/17: possible septic shock, on multiple pressors. EVD draining well, bloody CSF, ICP wnl. f/u CTA Head yesterday neg for vasospasm. TCDs this morning pending. Sedation turned off 30 mins ago when rounded, no eye opening, not following commands, no withdrawals to extremities. 06/22: Patient intubated & mechanically ventilated with midazolam at 6 mL/hr infusing. Patient is being tranfused. Tech at bedside to do TCD when seen and on yesterday's there was no significant vasospasm seen. On multiple vasopressors for blood pressure support. Nursing reports that highest ICP for her was 4 but during the night it did spike to 13 but it went back down quickly. Also that patient is slightly withdrawing. 06/23/17: pressors being weaned off, s/p chest tube placement for severe pleural effusions. ICPs remains wnl. EVD draining well. Remains sedated. TCD this am. 06/24: Patient remains intubated & mechanically ventilated. She is on midazolam & fentanyl drips. A norepinephrine drip is also infusing for blood pressure support. The tech is at the bedside doing the TCD study this morning. System Review Comments Unable to obtain due to patient's clinical condition. Exam Results Vital Signs Date Time Temp Pulse Resp B/P Pulse Ox O2 Delivery O2 Flow Rate FiO2 06/24/17 08:00 50 06/24/17 08:00 98.1 76 16 166/85 95 06/24/17 07:00 Mechanical Ventilator Intake and Output 06/23/17 06/23/17 06/24/17 08:00 16:00 00:00 Intake Total 1124 ml 1154 ml 1028 ml Output Total 445.0 ml 580 ml 1230 ml Balance 679.0 ml 574 ml -202 ml Physical Examination GENERAL: Nonresponsive, on midazolam & fentanyl drips. SKIN: Warm, dry & intact, no evident drainage, erythema or streaking from ventriculostomy site. HEENT: Normocephalic, atraumatic, ventriculostomy site intact, orally intubated , OGT. NECK: No JVD, trachea midline. Right IJ central venous catheter. CARDIOVASCULAR: S1S2 w/RRR w/o M/G/R, radial & pedal pulses 2+ bilaterally, cap refill < 2 sec, dependent edema. Monitor is sinus rhythm w/o any ectopy noted. RESPIRATORY: Slightly coarse bilaterally, equal excursion, nonlaboured, orally intubated & mechanically ventilated. GASTROINTESTINAL: Abdomen moderately distended, bowel sounds not appreciated, OGT w/enteral feeds. MUSCULOSKELETAL: No movement of extremities to noxious stimuli, no evident deformity or clubbing. NEUROLOGICAL: Nonresponsive to verbal or noxious stimuli, on midazolam & fentanyl drips, GCS 3T (E1 V1T M1). Does not follow commands. PERRLA 2 mm brisk. Unable to assess sensation due to mental status. 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 57 y/o FM with diffuse subarachnoid hemorrhage involving the basal cisterns as well as the interhemispheric fissure with a mild hydrocephalus from a ruptured anterior communicating artery aneurysm. s/p aneurysm coiling by radiology special procedures. 2. Hypertension. 3. New left frontal intraparenchymal hemorrhage with surrounding edema TCD with increase in left vasospasm and decrease in right vasospasm. CTA brain w/o evidence for significant spasm. TCD w/o significant vasospasm. TCD w/o evidence for vasospasm. CT brain demonstrated evolving haemorrhage but nothing to suggest any new haemorrhage. Ventriculostomy w/210 mL drainage past 24 hours. Anaemia Leukocytosis Sodium 154 on Patient w/o change in neuro function. Septic shock. Plan: Frequent neuro checks Continue ventriculostomy drain & monitor ICP Continue nimodipine for vasospasm prophylaxis Permissive hypertension prophylactically for vasospasm treatment Continue critical care management Antibiotics per Infectious Disease Lyle Joaquin [employer] TECHNICIAN Jun 24, 2017 09:22
[2017-06-24] MEDS: LEVOFLOXACIN 750 MG PREMIX INJ 150 ML IV SCH (10:00)
--- NOTE | 2017-06-24 10:16 | RADRPT ---
EXAM DATE/TIME: 06/24/2017 07:26 [facility] COMPARISON: US TRANSCRANIAL DOPPLER COMPLETE, June 23, 2017, 7:30. INDICATIONS : Subarachnoid hemorrhage. MEDICAL HISTORY : Hypertension. Arthritis. Subarachnoid hemorrhage. Weakness. SURGICAL HISTORY : Tubal ligation. Aneurysm coil. ENCOUNTER: Sequela ACUITY: 1 week PAIN SCORE: Nonresponsive. LOCATION: Bilateral cranial Current Exam: Jun 24, 2017 [place] Ratio: Right: 2.5 Left: 2.8 Fernández Ratio: Right: 1.2 Left: 1.5 Previous Exam: Jun 23, 2017 [place] Ratio: Right: 2.6 Left: 2.6 Fernández Ratio: Right: 0.9 Left: 1.5 FINDINGS: Examination performed at bedside. Real-time ultrasound with the assistance of color and spectral Dop pler was utilized to evaluate the intracerebral circulation. Time-averaged maximal velocities are ca lculated in cm/s. [place]ard and Fernández ratios are normal and stable bilaterally. CONCLUSION: 1. Stable examination without evidence for vasospasm. Brown Schuler MD on June 24, 2017 at 9:58 Board Certified Radiologist. This report was verified electronically.
[2017-06-24 12:19] LABS: AUTOMATED NEUTROPHIL # 16.7 TH/MM3 (1.8-7.7); BASOPHIL % 0.1 % (0.0-2.0); EOSINOPHIL % 0.1 % (0.0-4.0); HEMATOCRIT 28.2 % (35.0-46.0); LYMPH % 6.5 % (9.0-44.0); LYMPHOCYTE # 1.2 TH/MM3 (1.0-4.8); MEAN CELL VOLUME 92.6 FL (80.0-100.0); MEAN CORPUSCULAR HEMOGLOBIN 30.3 PG (27.0-34.0); MEAN CORPUSCULAR HGB CONC 32.7 % (32.0-36.0); MONO % 5.1 % (0.0-8.0); NEUT % 88.2 % (16.0-70.0); PLATELET COUNT 154 TH/MM3 (150-450); RED BLOOD COUNT 3.05 MIL/MM3 (4.00-5.30); RED CELL DISTRIBUTION WIDTH 15.1 % (11.6-17.2); WHITE BLOOD COUNT 18.9 TH/MM3 (4.0-11.0)
[2017-06-24 12:23] LABS: HEMO FLAGS AUTO DIFF
[2017-06-24 12:51] LABS: BICARBONATE 26.6 MEQ/L (21.0-32.0); POTASSIUM 3.8 MEQ/L (3.5-5.1)
[2017-06-24 12:53] LABS: BANDS 1 % (0-6); METAMYELOCYTES 1 % (0-1); NEUTROPHIL # MANUAL DIFF 16.3 TH/MM3 (1.8-7.7); POLYS (SEG NEUTROPHILS) 84 % (16-70); WBC DIFF SAMPLE 100
[2017-06-24 12:54] LABS: PLATELET ESTIMATE SMEAR NORMAL (NORMAL); PLATELET MORPHOLOGY NORMAL (NORMAL); SCAN/DIFF FINAL DIFF MANUAL
--- NOTE | 2017-06-24 13:37 | HHI.CCPN ---
Subjective Remarks/Hospital Course 06/15: Acute SAH with a-com aneurysm. Coiled 06/15. 06/16: BP control acceptable. Severe headache, but she gets somnolent after minimal analgesia. Some nausea and vomiting. 06/17: BP control good. Mild permissive hypertension 150s. Persistent headache and anxiety. Patient requests nicoderm patch but I am concerned about promoting unnecessary vasospasm. 06/18: Sudden onset altered mental status. Patient complaining of head ache and turning in bed, somewhat decreased level of consciousness. Transcranial Doppler did not show vasospasm today morning. Continue permissive hypertension. Stat CT of the head and CT angiogram ordered and discussed with interventional radiology Dr. Sanderson. (Dr. Yen in [place]) 06/19: Blood pressure in good range.TCDs today. Start TFs. 06/20: TCD 06/19 showed increase in the degree of vasospasm on the left, and decrease in degree of vasospasm on the right since the prior exam from one day ago. Getting CTA brain today. Remains on vasopressin and Emil-Synephrine to maintain systolic blood pressure 160-180. EVD drained 182 mL in 24 hours, ICP well controlled. UO 7L in 24 hours 06/21: Remains extremely critical. Profound shock, on 4 pressors to maintain SBP >110. On norepinephrine, dopamine, Emil-Synephrine and vasopressin. Unable to obtain target systolic blood pressure more than 160. Patient was started on Zosyn yesterday added vancomycin today. Teixeira cultures sent stress dose hydrocortisone started. Start Ben-trac monitoring. UO >12 L in 24 hours, osmolality studies not consistent with DI joseph though partial DI is possible. Check urine sp gravity and osm again. and Start scheduled DDAVP is suggestive of DI. Family updated in detail 06/22: Overnight developed worsening hypoxemia, refractory to conventional ventilator modes. With PEEP of 12 and FiO2 100% saturation remained in low 80s. Dr. Rodriguez placed on BiLevel (APPV) with improvement in oxygen saturation 90 % and no CO2 retention. I evaluated the patient with bedside ultrasound which showed moderate to large bilateral pleural effusions. Changed mode to PCV to avoid pneumothorax while placing chest tube. After this I placed 10 [place] pigtail catheter on the right side with immediate drainage of total 900 mL clear pleural fluid. Postprocedure oxygen saturation improved to 100% immediately, I was able to reduce the Insp pressure to 30. I will proceed with L pigtail chest tube after CXR confirms no complications 06/23: Remains intubated heavily sedated. Oxygenation improved after bilateral pigtail chest tube placement yesterday. R drained 1.1L and L 0.9L. lowering doses of Levophed and vasopressin. Discontinue vasopressin today 06/24: Heavy sedation limiting neuro exam. Decreasing pressor requirement as patient is maintaining blood pressure. Urine output adequate. Sodium 158 discontinue 3% saline Objective Vital Signs Date Time Temp Pulse Resp B/P Pulse Ox O2 Delivery O2 Flow Rate FiO2 06/24/17 12:11 96 40 06/24/17 08:00 98.1 76 16 166/85 06/24/17 07:00 Mechanical Ventilator Intake and Output 06/23/17 06/23/17 06/24/17 08:00 16:00 00:00 Intake Total 1124 ml 1154 ml 1028 ml Output Total 445.0 ml 580 ml 1230 ml Balance 679.0 ml 574 ml -202 ml Result Diagram: 06/24/17 1139 06/24/17 1139 Other Results Microbiology Date/Time Procedure Status Source Growth 06/22/17 12:50 Acid Fast Stain - Final Complete Fluid Pleural Fluid 06/22/17 12:50 Mycobacterial Culture - Final Complete Fluid Pleural Fluid Objective Remarks Gen: Sedated, ventilated, middle age woman. Critically ill on pressors and heavy sedation Head: Atraumatic. EVD in place, at 10.ICP well controlled Neck: Supple, orally intubated. Lungs: Air entry diminished bilaterally with coarse breath sounds. Bilateral pigtail chest tube with no air leak R 470ml and L 630 ml in 24 hours Heart: RRR, no m,r. No JVD. Abdomen: Soft, nondistended, no guarding. BS active. Extremities: Mottled extremities from high-dose vasopressors Neuro: Pupils are equal reactive. Positive cough and gag. V Slight withdrawal of extremities to pain A/P Problem List: (1) SAH (subarachnoid hemorrhage) ICD Code: I60.9 Status: Acute (2) Aneurysm of anterior communicating artery ICD Code: I67.1 Status: Acute (3) Encephalopathy acute ICD Code: G93.40 Status: Acute Assessment and Plan Plan: NEURO Extensive subarachnoid hemorrhage secondary to ruptured ACOM aneurysm Mild Vasospasm Left frontal intraparenchymal hemorrhage, with edema Severe encephalopathy Possible partial DI - 5x4x3 mm ACOM aneurysm successfully treated with coil embolization. - Transcranial Doppler showing vasospasm on the left side 06/19/17, stat CTA no significant vasospasm. Since then TCD had been neg for vasospasm - CT head on 06/18/17 had shown left frontal vasogenic edema and intraparenchymal hemorrhage, rpt 06/21 unchanged - Continue vasopressors to keep systolic blood pressure 140-150 - Resumed Nimotop as BP has improved, at 30 mg po q4 - Keep sodium 150-155, keep magnesium more than 2. Avoid hypoxia hypercarbia - Continue daily transcranial dopplers. - Serum osmolality, urine osmolality, urine specific gravity not consistent with DI-may have partial DI - DC DDAVP CVS: Severe shock/Septic and neurogenic - Currently on Levophed maintain SBP 140-150 - Echo EF 65-70% - DCd maintenance IV fluids and bicarbonate infusion 06/22. DC 3% - Nimodipine resumed - Continue Ben Trac monitoring RESP: Acute hypoxemic respiratory failure Bilateral pleural effusion HCAP - Intubated for airway protection 06/18/17 - PRVC - S/p bilateral pigtail chest tubes with approximately 1 L each removed 06/22/17 , still with high output - DuoNeb every 6 hours and when necessary ventilator bundle. HOB elevated. - No spontaneous breathing trials due to heavy sedation - Continue stress dose steroids-start tapering to DC over next 3 days GI: - Tube feedings, IV Protonix - Having daily bowel movements : - Sneed for accurate intake output - Electrolyte replacement per protocol ID/HEME: Neurogenic and septic shock Staph aureus pneumonia - Follow-up on blood urine and sputum culture-staph aureus - Leukocytosis slightly improved - Continue IV vancomycin and meropenem and Levaquin - ID Dr. Guerra - Sputum cx MSSA. blood cx 12/02 Coag neg staph ENDO: Severe hypokalemia Hypomagnesemia - Electrolyte replacement per protocol - Scheduled potassium and magnesium for hypokalemia Proph: - No chemical DVT prophylaxis. - SCDs. - Protonix. Overall impression: Extensive SAH associated with ACOM aneurysm. She is critically ill, with vasospasm and respiratory failure. Large amount of blood, elevated risk for vasospasm. Now with worsening refractory septic shock on 3 pressors, and severe hypoxemic respiratory failure. Discussed at length with family at the bedside. High Mortality. family understands that patient is very critically ill with guarded prognosis. Critical care 35 mins Tona Rosen MD Jun 24, 2017 13:37 Tona Rosen MD Jun 24, 2017 13:37
[2017-06-24] MEDS: SODIUM CHLORIDE IV SCH (13:44)
[2017-06-24] MEDS: SODIUM CHLORID 0.9% IV SCH (13:44)
[2017-06-24] MEDS: ceFAZolin 2 GM PREMIX 50 ML IV SCH (18:00)
[2017-06-24 19:12] LABS: POTASSIUM 3.7 MEQ/L (3.5-5.1)
[2017-06-25] VITALS (17 sets, daily range): BP systolic 111–168; BP diastolic 70–84; PULSE 62–110; RESP 16–32; TEMP 98.3–98.9; O2SAT 93–99
[2017-06-25] MEDS: niMODipine 30 MG CAP PO SCH ×6 (00:41→21:52)
[2017-06-25] MEDS: SODIUM CHLOR 0.9% 1000 ML INJ 1,000 ML IV SCH ×5 (01:43→13:35)
[2017-06-25] MEDS: ceFAZolin 2 GM PREMIX 50 ML IV SCH ×3 (01:43→18:00)
[2017-06-25] MEDS: ALBUMIN HUMAN 25% 25 GM/100 ML BAGP IV SCH ×3 (02:20→18:41)
[2017-06-25] MEDS: MILRINONE INJ 20 MG in SODIUM CHLORIDE 0.9% INJ 80 ML IV SCH ×2 (03:18→11:30)
[2017-06-25] MEDS ORDERED: PHARMACY ORDERED LAB ONE (03:45)
[2017-06-25] MEDS: CHLORHEXIDINE GLUCONATE 2 % 1 PACK (2 CLOTHS) TOP SCH (04:00)
[2017-06-25] MEDS: RESP: ALBUTEROL 2.5 MG/IPRATROPIUM 0.5 MG NEB (SCH) NEB ×5 (04:01→20:06)
[2017-06-25] MEDS: VANCOMYCIN INJ 1,200 MG in SODIUM CHLOR 0.9% 250 ML INJ 250 ML IV SCH (04:18)
[2017-06-25 04:35] LABS: ALT (GPT) 52 U/L (10-53); ANION GAP 6 MEQ/L (5-15); AST (GOT) 23 U/L (15-37); BICARBONATE 26.7 MEQ/L (21.0-32.0); BLOOD UREA NITROGEN 26 MG/DL (7-18); CHLORIDE 122 MEQ/L (98-107); GLOMERULAR FILTRATION RATE 150 ML/MIN (>89); MAGNESIUM 2.4 MG/DL (1.5-2.5); POTASSIUM 3.3 MEQ/L (3.5-5.1); SODIUM (NA) 155 MEQ/L (136-145)
[2017-06-25 04:37] LABS: ALKALINE PHOSPHATASE 100 U/L (45-117); TOTAL BILIRUBIN ADULT 0.6 MG/DL (0.2-1.0)
[2017-06-25 04:40] LABS: AUTOMATED NEUTROPHIL # 16.1 TH/MM3 (1.8-7.7); HEMATOCRIT 25.5 % (35.0-46.0); HEMO FLAGS DIFF FINAL; LYMPH % 4.4 % (9.0-44.0); LYMPHOCYTE # 0.8 TH/MM3 (1.0-4.8); MEAN CELL VOLUME 91.1 FL (80.0-100.0); MEAN CORPUSCULAR HEMOGLOBIN 31.1 PG (27.0-34.0); MEAN CORPUSCULAR HGB CONC 34.1 % (32.0-36.0); MONO % 5.9 % (0.0-8.0); NEUT % 89.7 % (16.0-70.0); PLATELET COUNT 113 TH/MM3 (150-450); RED CELL DISTRIBUTION WIDTH 14.7 % (11.6-17.2); WHITE BLOOD COUNT 17.9 TH/MM3 (4.0-11.0)
[2017-06-25] MEDS: SODIUM CHLORIDE IV SCH ×2 (05:30→21:46)
[2017-06-25] MEDS: SODIUM CHLORID 0.9% IV SCH ×2 (05:30→21:46)
[2017-06-25] MEDS: POTASSIUM CHLOR 40 MEQ PREMIX 100 ML IV PRN (05:40)
[2017-06-25] MEDS: MAGNESIUM OXIDE 400 MG TAB PO SCH ×3 (05:40→21:53)
[2017-06-25] MEDS: HYDROCORTISONE SOD SUCCINATE 100 MG VIAL IV PUSH SCH ×3 (05:40→21:52)
--- NOTE | 2017-06-25 05:48 | RADRPT ---
EXAM DATE/TIME: 06/25/2017 04:53 [facility] COMPARISON: CHEST SINGLE AP, June 23, 2017, 5:20. INDICATIONS : Respiratory disease. MEDICAL HISTORY : Aneurysm, intracranial. Hypertension SURGICAL HISTORY : None. ENCOUNTER: Subsequent ACUITY: 1 week PAIN SCORE: Non-responsive. LOCATION: Bilateral chest FINDINGS: Single AP view of the chest. Endotracheal tube, nasogastric tube, right IJ central venous catheter re main in place. Increased perihilar left and right pulmonary parenchymal opacity. Cardiomediastinal si lhouette unchanged. No evidence of pleural effusion or pneumothorax. CONCLUSION: Increased left greater than right perihilar pulmonary parenchymal opacity likely representing pulmona ry edema. Trino Hernandez MD on June 25, 2017 at 5:46 Board Certified Radiologist. This report was verified electronically.
[2017-06-25] MEDS: POTASSIUM CHLORIDE 25 MEQ EFFERVESCENT TAB PO SCH ×2 (07:32→21:52)
[2017-06-25] MEDS: BENEPROTEIN POWDER 1 PACK G-TUBE SCH ×3 (07:32→18:00)
[2017-06-25 07:33] LABS: VANCOMYCIN TROUGH 13.7 MCG/ML (5.0-10.0)
[2017-06-25] MEDS: levETIRAcetam INJ 500 MG in SODIUM CHLORIDE 0.9% INJ 100 ML IV SCH ×2 (07:33→21:52)
[2017-06-25] MEDS: DOCUSATE SODIUM 50 MG/SENNA 8.6 MG TAB PO SCH ×2 (07:33→21:00)
[2017-06-25] MEDS: LEVOFLOXACIN 750 MG PREMIX INJ 150 ML IV SCH (09:32)
--- NOTE | 2017-06-25 09:54 | RADRPT ---
EXAM DATE/TIME: 06/25/2017 07:31 [facility] COMPARISON: US TRANSCRANIAL DOPPLER COMPLETE, June 24, 2017, 7:26. INDICATIONS : Subarachnoid hemorrhage. MEDICAL HISTORY : Hypertension. Arthritis. Subarachnoid hemorrhage. Weakness. SURGICAL HISTORY : Tubal ligation. Aneurysm coil. ENCOUNTER: Subsequent ACUITY: 1 week PAIN SCORE: Nonresponsive. LOCATION: Bilateral cranial Current Exam: Jun 25, 2017 [place] Ratio: Right: 1.76 Left: 2.68 Fernández Ratio: Right: 0.97 Left: 1.6 Previous Exam: Jun 24, 2017 [place] Ratio: Right: 2.5 Left: 2.8 Fernández Ratio: Right: 1.2 Left: 1.5 FINDINGS: Examination performed at bedside. Real-time ultrasound with the assistance of color and spectral Dop pler was utilized to evaluate the intracerebral circulation. Time-averaged maximal velocities are ca lculated in cm/s. The [place]ard and Fernández ratios are within normal limits. Waveforms are within normal limits. CONCLUSION: 1. No evidence for vasospasm. Brown Schuler MD on June 25, 2017 at 9:51 Board Certified Radiologist. This report was verified electronically.
[2017-06-25] MEDS ORDERED: BUMETANIDE INJ 1 MG/4 ML VIAL IV PUSH ONE (14:15)
[2017-06-25] MEDS ORDERED: POTASSIUM CHLORIDE 25 MEQ EFFERVESCENT TAB PO ONE (14:15)
--- NOTE | 2017-06-25 14:26 | HHI.CCPN ---
Subjective Remarks/Hospital Course 06/15: Acute SAH with a-com aneurysm. Coiled 06/15. 06/16: BP control acceptable. Severe headache, but she gets somnolent after minimal analgesia. Some nausea and vomiting. 06/17: BP control good. Mild permissive hypertension 150s. Persistent headache and anxiety. Patient requests nicoderm patch but I am concerned about promoting unnecessary vasospasm. 06/18: Sudden onset altered mental status. Patient complaining of head ache and turning in bed, somewhat decreased level of consciousness. Transcranial Doppler did not show vasospasm today morning. Continue permissive hypertension. Stat CT of the head and CT angiogram ordered and discussed with interventional radiology Dr. Sanderson. (Dr. Yen in [place]) 06/19: Blood pressure in good range.TCDs today. Start TFs. 06/20: TCD 06/19 showed increase in the degree of vasospasm on the left, and decrease in degree of vasospasm on the right since the prior exam from one day ago. Getting CTA brain today. Remains on vasopressin and Emil-Synephrine to maintain systolic blood pressure 160-180. EVD drained 182 mL in 24 hours, ICP well controlled. UO 7L in 24 hours 06/21: Remains extremely critical. Profound shock, on 4 pressors to maintain SBP >110. On norepinephrine, dopamine, Emil-Synephrine and vasopressin. Unable to obtain target systolic blood pressure more than 160. Patient was started on Zosyn yesterday added vancomycin today. Teixeira cultures sent stress dose hydrocortisone started. Start Ben-trac monitoring. UO >12 L in 24 hours, osmolality studies not consistent with DI joseph though partial DI is possible. Check urine sp gravity and osm again. and Start scheduled DDAVP is suggestive of DI. Family updated in detail 06/22: Overnight developed worsening hypoxemia, refractory to conventional ventilator modes. With PEEP of 12 and FiO2 100% saturation remained in low 80s. Dr. Rodriguez placed on BiLevel (APPV) with improvement in oxygen saturation 90 % and no CO2 retention. I evaluated the patient with bedside ultrasound which showed moderate to large bilateral pleural effusions. Changed mode to PCV to avoid pneumothorax while placing chest tube. After this I placed 10 [place] Island[place] pigtail catheter on the right side with immediate drainage of total 900 mL clear pleural fluid. Postprocedure oxygen saturation improved to 100% immediately, I was able to reduce the Insp pressure to 30. I will proceed with L pigtail chest tube after CXR confirms no complications 06/23: Remains intubated heavily sedated. Oxygenation improved after bilateral pigtail chest tube placement yesterday. R drained 1.1L and L 0.9L. lowering doses of Levophed and vasopressin. Discontinue vasopressin today 06/24: Heavy sedation limiting neuro exam. Decreasing pressor requirement as patient is maintaining blood pressure. Urine output adequate. Sodium 158 discontinue 3% saline 06/25: Continues to have no evidence of vasospasm. Coming off pressors. Sedation held now. Sodium 155. Overall continues to be positive fluid balance. We'll give IV Bumex 2 mg 1 with potassium replacement and stop all IV fluids. target SBP 140-150 Objective Vital Signs Date Time Temp Pulse Resp B/P Pulse Ox O2 Delivery O2 Flow Rate FiO2 06/25/17 12:02 93 Ventilator 06/25/17 11:56 50 06/25/17 08:00 98.4 80 16 168/84 Intake and Output 06/24/17 06/24/17 06/25/17 08:00 16:00 00:00 Intake Total 1172 ml 842 ml 1398 ml Output Total 1200.0 ml 700 ml 1515 ml Balance -28.0 ml 142 ml -117 ml Result Diagram: 06/25/17 0345 06/25/17 0345 Objective Remarks Gen: Sedated, ventilated, middle age woman. Critically ill on heavy sedation Head: Atraumatic. EVD in place, at 10. ICP well controlled Neck: Supple, orally intubated. Lungs: Air entry diminished bilaterally with coarse breath sounds. Bilateral pigtail chest tube with no air leak R 800 ml and L 720 ml in 24 hours Heart: RRR, no m,r. No JVD. Abdomen: Soft, nondistended, no guarding. BS active. Extremities: Mottled extremities from high-dose vasopressors Neuro: Pupils are equal reactive. Positive cough and gag. Very Slight withdrawal of extremities to pain L > R A/P Problem List: (1) SAH (subarachnoid hemorrhage) ICD Code: I60.9 Status: Acute (2) Aneurysm of anterior communicating artery ICD Code: I67.1 Status: Acute (3) Encephalopathy acute ICD Code: G93.40 Status: Acute Assessment and Plan Plan: NEURO Extensive subarachnoid hemorrhage secondary to ruptured ACOM aneurysm Left frontal intraparenchymal hemorrhage, with edema Mild Vasospasm, now resolved Possible partial DI-resolved - 5x4x3 mm ACOM aneurysm successfully treated with coil embolization. - Transcranial Doppler showing vasospasm on the left side 06/19/17, stat CTA no significant vasospasm. Since then serial TCD had been neg for vasospasm - CT head on 06/18/17 had shown left frontal vasogenic edema and intraparenchymal hemorrhage, rpt 06/21 unchanged - Keep systolic blood pressure 140-150 - Resumed Nimotop as BP has improved, at 30 mg po q4 - Keep sodium 150-155, keep magnesium more than 2. - Serum osmolality, urine osmolality, urine specific gravity not consistent with DI-may have partial DI CVS: Severe shock/Septic and neurogenic-now resolved Fluid overload - Coming off all pressors. Target SBP 140-150 - Echo EF 65-70% - DCd maintenance IV fluids and bicarbonate infusion 06/22. DCd 3% - Nimodipine resumed - DC Ben Trac monitoring - IV Bumex 2mg x1 with KCL replacement RESP: Acute hypoxemic respiratory failure Bilateral pleural effusion HCAP - Intubated for airway protection 06/18/17. PRVC - S/p bilateral pigtail chest tubes with approximately 1 L each removed 06/22/17 , still with high output 1.5L in 24 hours - DuoNeb every 6 hours and when necessary ventilator bundle. HOB elevated. - No spontaneous breathing trials due to heavy sedation - Continue stress dose steroids-start tapering to DC over next 3 days GI: - Tube feedings, IV Protonix - Having daily bowel movements : - Sneed for accurate intake output - Electrolyte replacement per protocol - IV Bumex on those as above ID/HEME: Staph aureus pneumonia - Follow-up on blood urine and sputum culture-staph aureus - Leukocytosis improving - Continue IV vancomycin and meropenem and Levaquin - ID Dr. Guerra - Sputum cx MSSA. blood cx 12/02 Coag neg staph ENDO: Severe hypokalemia Hypomagnesemia - Electrolyte replacement per protocol - Scheduled potassium and magnesium for hypokalemia Proph: - No chemical DVT prophylaxis. - SCDs. - Protonix. Overall impression: Extensive SAH associated with ACOM aneurysm. She is critically ill, with vasospasm and respiratory failure. Large amount of blood, elevated risk for vasospasm. NoDiscussed at length with family at the bedside. High Mortality. family understands that patient is very critically ill with guarded prognosis. Critical care 35 mins Tona Rosen MD Jun 25, 2017 14:26
[2017-06-25] MEDS ORDERED: VANCOMYCIN INJ 1,250 MG in SODIUM CHLOR 0.9% 250 ML INJ 250 ML IV SCH (16:00)
--- NOTE | 2017-06-25 17:33 | HHI.NSPN ---
History Chief Complaint: Unable to obtain due to patient's clinical condition. Interval History This 57-year-old right-handed female had the acute onset of severe headache early this morning and also complained of weakness in her legs, left more than right, along with paresthesias and subsequently became more lethargic. She was found on the floor by her with positive complaints of nausea. On arrival to the emergency room she was lethargic but responsive. CT scan of the head obtained reveals extensive diffuse subarachnoid hemorrhage involving the basal cisterns and also extending into the bilateral sylvian fissure and interhemispheric fissure and prepontine fissure along with suprasellar cistern. There is also mild hydrocephalus associated with this and slight dilation of the temporal horns bilaterally. 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 The patient is lethargic but does respond to verbal commands and follows simple instructions. 06/16/17: 5x4x3 mm ACOM aneurysm successfully treated with coil embolization on 06/15/17. No significant vasospasm seen involving the left intracranial vasculature per interventional radiology. Pt awakens to voice. Complains of headache all over. Has nausea and had episode of vomiting last night. Pt denies any paresthesias or weakness. She is lethargic and prefers her eyes closed, but awakens to voice. 06/17/17: Pt awake more alert this afternoon. Complains of headache all over. Nausea. Pt was up in chair earlier. Follows commands well. 06/18/17: Pt currently sedated for a STAT CT head that was ordered by critical care. Discussed with critical care and pt was acting restless and more confused but was following commands and gripping hands symmetrically. A follow up CT was obtained which revealed a new left frontal intraparenchymal hemorrhage with surrounding edema. Critical care is going to intubate pt for airway control and Dr. Yen is going to place a ventriculostomy drain. 06/19: Patient remains intubated and mechanically ventilated. She is on propofol 50 mcg/kg/min and midazolam 4 mL/hr for sedation. She has 3% saline infusing. She is on vasopressin at 6 mL/hr for blood pressure support. Nursing reports that she drain 75 mL from the ventriculostomy at 1400. This morning during a sedation vacation the patient did open her eyes to voice. She also reports that the patient's ICP has been running 5 to 8 but will go up to 10 when the ventriculostomy system is clamped or the patient is repositioned. 06/20/17: Remains intubated, mechanical ventilation, intravenous sedation. 06/21/17: possible septic shock, on multiple pressors. EVD draining well, bloody CSF, ICP wnl. f/u CTA Head yesterday neg for vasospasm. TCDs this morning pending. Sedation turned off 30 mins ago when rounded, no eye opening, not following commands, no withdrawals to extremities. 06/22: Patient intubated & mechanically ventilated with midazolam at 6 mL/hr infusing. Patient is being tranfused. Tech at bedside to do TCD when seen and on yesterday's there was no significant vasospasm seen. On multiple vasopressors for blood pressure support. Nursing reports that highest ICP for her was 4 but during the night it did spike to 13 but it went back down quickly. Also that patient is slightly withdrawing. 06/23/17: pressors being weaned off, s/p chest tube placement for severe pleural effusions. ICPs remains wnl. EVD draining well. Remains sedated. TCD this am. 06/24: Patient remains intubated & mechanically ventilated. She is on midazolam & fentanyl drips. A norepinephrine drip is also infusing for blood pressure support. The tech is at the bedside doing the TCD study this morning. 06/25: Patient is intubated but off all sedation at this time. Responsive only to painful stimulation Exam Results Vital Signs Date Time Temp Pulse Resp B/P Pulse Ox O2 Delivery O2 Flow Rate FiO2 06/25/17 16:35 95 55 06/25/17 12:02 Ventilator 06/25/17 08:00 98.4 80 16 168/84 Intake and Output 06/24/17 06/24/17 06/24/17 07:59 15:59 23:59 Intake Total 1172 ml 842 ml 1398 ml Output Total 1200 ml 700 ml 1515 ml Balance -28 ml 142 ml -117 ml Physical Examination NEUROLOGICAL: Pupils 3 mm and reactive gaze midline. Responds to painful stimulation left upper extremity withdrawal. Posturing and right upper extremity to pain. Weak lower extremity movement to pain. Does not follow commands. Ventriculostomy at 10 cm H2O pressure draining xanthochromic CSF. ICPs remain within normal limits. Lab, Micro, Other Results Laboratory Tests Test 06/24/17 06/25/17 06/25/17 18:04 03:45 15:04 Sodium Level 156 155 Potassium Level 3.7 3.3 3.9 Chloride Level 124 122 Carbon Dioxide Level 25.0 26.7 Anion Gap 7 6 Blood Urea Nitrogen 28 26 Creatinine 0.37 0.43 Estimat Glomerular Filtration 179 150 Rate Random Glucose 129 124 Serum Osmolality 329 Calcium Level 8.2 8.4 White Blood Count 17.9 Red Blood Count 2.80 Hemoglobin 8.7 Hematocrit 25.5 Mean Corpuscular Volume 91.1 Mean Corpuscular Hemoglobin 31.1 Mean Corpuscular Hemoglobin 34.1 Concent Red Cell Distribution Width 14.7 Platelet Count 113 Mean Platelet Volume 9.3 Neutrophils (%) (Auto) 89.7 Lymphocytes (%) (Auto) 4.4 Monocytes (%) (Auto) 5.9 Eosinophils (%) (Auto) 0.0 Basophils (%) (Auto) 0.0 Neutrophils # (Auto) 16.1 Lymphocytes # (Auto) 0.8 Monocytes # (Auto) 1.0 Eosinophils # (Auto) 0.0 Basophils # (Auto) 0.0 CBC Comment DIFF FINAL Differential Comment Magnesium Level 2.4 Total Bilirubin 0.6 Aspartate Amino Transf 23 (AST/SGOT) Alanine Aminotransferase 52 (ALT/SGPT) Alkaline Phosphatase 100 Total Protein 5.3 Albumin 3.7 Vancomycin Level Trough 13.7 Date/Time Procedure Status Source Growth 06/23/17 20:50 Aerobic Blood Culture - Preliminary Resulted Blood Peripheral NO GROWTH IN 2 DAYS 06/23/17 20:50 Anaerobic Blood Culture - Preliminary Resulted Blood Peripheral NO GROWTH IN 2 DAYS 06/22/17 12:50 Gram Stain - Final Complete Fluid Pleural Fluid 06/22/17 12:50 Body Fluid Culture - Final Complete Fluid Pleural Fluid NO GROWTH IN 72 HRS.--AEROBICALLY OR ... 06/22/17 12:50 Fungal Smear - Final Resulted Fluid Pleural Fluid NO FUNGAL ELEMENTS SEEN. 06/22/17 12:50 Fungal Culture Resulted Fluid Pleural Fluid Pending 06/22/17 12:50 Acid Fast Stain - Final Complete Fluid Pleural Fluid 06/22/17 12:50 Mycobacterial Culture - Final Complete Fluid Pleural Fluid 06/21/17 12:24 Aerobic Blood Culture - Final Resulted Blood Peripheral Staphylococcus Epidermidis 06/21/17 12:24 Anaerobic Blood Culture - Preliminary Resulted Blood Peripheral NO GROWTH IN 4 DAYS 06/21/17 10:45 Urine Culture - Final Complete Urine Catheterized Urine NO GROWTH IN 48 HOURS. Medical Decision Making Impression and Plan mpression: 1. 57 y/o FM presenting with subarachnoid hemorrhage status post coiling A comm aneurysm. Postoperative hydrocephalus necessitating ventriculostomy. TCD negative for vasospasm. Neuro status poor 2. Pulmonary edema with Bilateral pulmonary effusions, clinical sepsis Plan: Continue aggressive ICP management with ventricular drainage and bilateral chest tube drainage. Prognosis guarded. Dixon Hunter MD Jun 25, 2017 17:33
[2017-06-25] MEDS: niCARdipine INJ 25 MG in SODIUM CHLOR 0.9% 250 ML INJ 250 ML IV SCH (19:35)
--- NOTE | 2017-06-25 20:13 | HHI.IDPN ---
Subjective Subjective Remarks ID X cover for Dr Guerra chart reviewed Ms. Nevarez is a 57-year-old female with past medical history significant for hypertension with SAH, acute VDRF,on vent developed MSSA PNA, sp b/l chest tubes has liquid diarrhea , off pressors No fevers remains intubated and sedated. ICP pressures in normal range. Pt was taken off sedation and became agitated, breathing 30s/min Antibiotics cefazoline IV Vanco IV Levaquin IV Lines Line sites with no e.o infection. Past Medical History Hypertension Tubal ligation Coiling of the aneurysm this admission. External ventricular device placement. Allergies: Coded Allergies: No Known Allergies (Verified , 02/25/16) Objective . Vital Signs Date Time Temp Pulse Resp B/P Pulse Ox O2 Delivery O2 Flow Rate FiO2 06/25/17 16:35 95 55 06/25/17 16:00 98.3 78 16 146/70 97 06/25/17 16:00 50 06/25/17 15:00 80 06/25/17 12:02 93 Ventilator 06/25/17 12:00 98.5 74 16 148/76 97 06/25/17 12:00 50 06/25/17 11:56 94 50 06/25/17 11:55 94 50 06/25/17 08:48 96 Ventilator 06/25/17 08:37 95 55 06/25/17 08:00 50 06/25/17 08:00 98.4 80 16 168/84 97 06/25/17 07:00 81 06/25/17 07:00 97 Mechanical Ventilator 50 06/25/17 04:00 50 06/25/17 04:00 98.6 62 16 111/76 99 06/25/17 04:00 97 50 06/25/17 01:56 95 50 06/25/17 00:00 50 06/25/17 00:00 98.6 76 16 161/84 96 06/24/17 23:00 80 06/24/17 22:32 96 50 06/24/17 20:26 97 50 06/24/17 20:26 97 50 06/24/17 20:00 50 06/24/17 20:00 98.8 78 16 152/81 97 06/24/17 06/24/17 06/25/17 15:00 23:00 07:00 Intake Total 842 ml 1398 ml 1423 ml Output Total 700 ml 1515 ml 1301 ml Balance 142 ml -117 ml 122 ml IV Total 772 ml 1338 ml 1303 ml Other 70 ml 60 ml 120 ml Output Urine Total 300 ml 650 ml 475 ml Stool Total 50 ml 100 ml 200 ml Tube Feeding Residual Discard 0 ml 0 ml Chest Tube Drainage Total 300 ml 690 ml 530 ml Drainage Total 50 ml 75 ml 96 ml . Laboratory Tests Test 06/24/17 06/25/17 11:39 03:45 White Blood Count 18.9 TH/MM3 17.9 TH/MM3 Red Blood Count 3.05 MIL/MM3 2.80 MIL/MM3 Hemoglobin 9.2 GM/DL 8.7 GM/DL Hematocrit 28.2 % 25.5 % Mean Corpuscular Volume 92.6 FL 91.1 FL Mean Corpuscular Hemoglobin 30.3 PG 31.1 PG Mean Corpuscular Hemoglobin 32.7 % 34.1 % Concent Red Cell Distribution Width 15.1 % 14.7 % Platelet Count 154 TH/MM3 113 TH/MM3 Mean Platelet Volume 8.9 FL 9.3 FL Neutrophils (%) (Auto) 88.2 % 89.7 % Lymphocytes (%) (Auto) 6.5 % 4.4 % Monocytes (%) (Auto) 5.1 % 5.9 % Eosinophils (%) (Auto) 0.1 % 0.0 % Basophils (%) (Auto) 0.1 % 0.0 % Neutrophils # (Auto) 16.7 TH/MM3 16.1 TH/MM3 Lymphocytes # (Auto) 1.2 TH/MM3 0.8 TH/MM3 Monocytes # (Auto) 1.0 TH/MM3 1.0 TH/MM3 Eosinophils # (Auto) 0.0 TH/MM3 0.0 TH/MM3 Basophils # (Auto) 0.0 TH/MM3 0.0 TH/MM3 CBC Comment AUTO DIFF DIFF FINAL Differential Total Cells 100 Counted Neutrophils % (Manual) 84 % Band Neutrophils % 1 % Lymphocytes % 10 % Monocytes % 4 % Neutrophils # (Manual) 16.3 TH/MM3 Metamyelocytes 1 % Differential Comment FINAL DIFF MANUAL Platelet Estimate NORMAL Platelet Morphology Comment NORMAL Red Cell Morphology Comment NORMAL Laboratory Tests Test 06/24/17 06/24/17 06/25/17 06/25/17 11:39 18:04 03:45 15:04 Sodium Level 158 MEQ/L 156 MEQ/L 155 MEQ/L Potassium Level 3.8 MEQ/L 3.7 MEQ/L 3.3 MEQ/L 3.9 MEQ/L Chloride Level 126 MEQ/L 124 MEQ/L 122 MEQ/L Carbon Dioxide Level 26.6 MEQ/L 25.0 MEQ/L 26.7 MEQ/L Anion Gap 5 MEQ/L 7 MEQ/L 6 MEQ/L Blood Urea Nitrogen 27 MG/DL 28 MG/DL 26 MG/DL Creatinine 0.43 MG/DL 0.37 MG/DL 0.43 MG/DL Estimat Glomerular Filtration 150 ML/MIN 179 ML/MIN 150 ML/MIN Rate Random Glucose 112 MG/DL 129 MG/DL 124 MG/DL Serum Osmolality 333 MOSM/KG 329 MOSM/KG Calcium Level 8.2 MG/DL 8.2 MG/DL 8.4 MG/DL Magnesium Level 2.4 MG/DL Total Bilirubin 0.6 MG/DL Aspartate Amino Transf 23 U/L (AST/SGOT) Alanine Aminotransferase 52 U/L (ALT/SGPT) Alkaline Phosphatase 100 U/L Total Protein 5.3 GM/DL Albumin 3.7 GM/DL Microbiology Date/Time Procedure Status Source Growth 06/23/17 20:45 Aerobic Blood Culture - Preliminary Resulted Blood Peripheral NO GROWTH IN 2 DAYS 06/23/17 20:45 Anaerobic Blood Culture - Preliminary Resulted Blood Peripheral NO GROWTH IN 2 DAYS 06/23/17 20:50 Aerobic Blood Culture - Preliminary Resulted Blood Peripheral NO GROWTH IN 2 DAYS 06/23/17 20:50 Anaerobic Blood Culture - Preliminary Resulted Blood Peripheral NO GROWTH IN 2 DAYS Imaging Last Impressions Chest X-Ray 06/25/17 06 Signed Impressions: Service Date/Time: Sunday, June 25, 2017 04:53 - CONCLUSION: Increased left greater than right perihilar pulmonary parenchymal opacity likely representing pulmonary edema. Trino Hernandez MD Transcranial Doppler Study Complete 06/25/17 0000 Signed Impressions: Service Date/Time: Sunday, June 25, 2017 07:31 - CONCLUSION: 1. No evidence for vasospasm. Brown Schuler MD Head CT 06/21/17 0000 Signed Impressions: Service Date/Time: Wednesday, June 21, 2017 15:49 - CONCLUSION: Evolving intracranial hemorrhage. Nothing to suggest new hemorrhage. Silas Mtz MD Head CTA 06/20/17 0600 Signed Impressions: Service Date/Time: Tuesday, June 20, 2017 07:52 - CONCLUSION: No evidence for any significant spasm. Sascha Montez MD Neck CTA 06/15/17 1125 Signed Impressions: Service Date/Time: Thursday, June 15, 2017 12:10 - CONCLUSION: 1. No stenosis of either carotid artery. 2. No aneurysm seen. 3. Normal variants of the aortic arch. Pascual Sanderson MD Cerebral Arteriogram 06/15/17 0000 Signed Impressions: Service Date/Time: Thursday, June 15, 2017 13:11 - CONCLUSION: 1. 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 2. No significant vasospasm seen on the left. 3. I spoke with Dr. Yen immediately following the procedure. Emile Walker Jr., MD Physical Exam GENERAL: This is a well-nourished, well-developed patient, in respiratory distress. SKIN: No rashes, ecchymoses or lesions. Cool and dry. HEAD: EVD in place with clear yellow fluid EYES:. No scleral icterus. No injection or drainage. ENT: Nose without bleeding, purulent drainage or septal hematoma. Orally intubated NECK: Trachea midline. Supple, nontender, no meningeal signs. CARDIOVASCULAR: Regular rate and rhythm without murmurs, gallops, or rubs. RESPIRATORY: Clear to auscultation. Breath sounds equal bilaterally. Bilateral chest tubes in place with serous d/c GASTROINTESTINAL: Abdomen soft, non-tender, nondistended. No hepatosplenomegaly Incontinent of liquin brown stool MUSCULOSKELETAL: Extremities without clubbing, cyanosis, + small amount of edema. NEUROLOGICAL: Off sedation with no meaningful response. Agitated Psych could not be assessed IV line sites with no evidence of infection. R IJ in place wo e/o infx Assessment & Plan Remarks Septic Shock (fever, leucocytosis, shock, source: Pneumonia) Aspiration Pneumonia on admission. Possible HCAP. Acute resp failure on vent Acute encephalopathy: Acute SAH, metabolic, infection. Acute SAH s/p aneurysm coiling. Possible DI m'ment per [facility] . Abx associated diarrhea Staph epi low grade bacteremia, doubt clin signifricance Critically ill. Simple pleural effusions, not cw empyema Recs: Continue cefazoline IV dc Vanco IV dc Levaquin IV fu repeat bcx ru C.diff Follow clinically. d/w Dr. Rodriguez and RN for pt. Juliet Florentino MD Jun 25, 2017 20:12
[2017-06-25] MEDS: PROPOFOL 1000 MG/100 ML INJ 100 ML IV SCH (20:15)
[2017-06-26] VITALS (16 sets, daily range): BP systolic 130–150; BP diastolic 67–88; PULSE 72–98; RESP 16–21; TEMP 98.8–100.6; O2SAT 97–100
[2017-06-26] MEDS: RESP: ALBUTEROL 2.5 MG/IPRATROPIUM 0.5 MG NEB (SCH) NEB ×6 (00:05→20:09)
[2017-06-26] MEDS: ceFAZolin 2 GM PREMIX 50 ML IV SCH ×3 (00:42→17:43)
[2017-06-26] MEDS: niMODipine 30 MG CAP PO SCH ×7 (00:42→23:23)
[2017-06-26] MEDS: CHLORHEXIDINE GLUCONATE 2 % 1 PACK (2 CLOTHS) TOP SCH (03:28)
[2017-06-26] MEDS: ALBUMIN HUMAN 25% 25 GM/100 ML BAGP IV SCH ×3 (03:31→18:46)
[2017-06-26] MEDS: PROPOFOL 1000 MG/100 ML INJ 100 ML IV SCH ×3 (03:31→23:23)
[2017-06-26 04:36] LABS: AUTOMATED NEUTROPHIL # 17.3 TH/MM3 (1.8-7.7); BASOPHIL % 0.1 % (0.0-2.0); HEMATOCRIT 28.3 % (35.0-46.0); HEMO FLAGS DIFF FINAL; LYMPH % 6.1 % (9.0-44.0); LYMPHOCYTE # 1.2 TH/MM3 (1.0-4.8); MEAN CELL VOLUME 91.3 FL (80.0-100.0); MONO % 6.7 % (0.0-8.0); NEUT % 87.1 % (16.0-70.0); PLATELET COUNT 101 TH/MM3 (150-450); WHITE BLOOD COUNT 19.9 TH/MM3 (4.0-11.0)
[2017-06-26 05:12] LABS: ALKALINE PHOSPHATASE 154 U/L (45-117); ALT (GPT) 46 U/L (10-53); ANION GAP 7 MEQ/L (5-15); AST (GOT) 38 U/L (15-37); BICARBONATE 30.3 MEQ/L (21.0-32.0); BLOOD UREA NITROGEN 26 MG/DL (7-18); CHLORIDE 115 MEQ/L (98-107); GLOMERULAR FILTRATION RATE 123 ML/MIN (>89); MAGNESIUM 2.3 MG/DL (1.5-2.5); SODIUM (NA) 152 MEQ/L (136-145); TOTAL BILIRUBIN ADULT 0.9 MG/DL (0.2-1.0)
[2017-06-26 05:24] LABS: POTASSIUM 2.9 MEQ/L (3.5-5.1)
[2017-06-26] MEDS: MAGNESIUM OXIDE 400 MG TAB PO SCH ×3 (05:33→21:25)
[2017-06-26] MEDS: HYDROCORTISONE SOD SUCCINATE 100 MG VIAL IV PUSH SCH (05:33)
[2017-06-26] MEDS: POTASSIUM CHLOR 40 MEQ PREMIX 100 ML IV PRN ×3 (05:34→21:54)
--- NOTE | 2017-06-26 05:42 | RADRPT ---
EXAM DATE/TIME: 06/26/2017 04:20 [facility] COMPARISON: CHEST SINGLE AP, June 23, 2017, 5:20. CHEST SINGLE AP, June 25, 2017, 4:53. INDICATIONS : Respiratory disease. MEDICAL HISTORY : Aneurysm, intracranial. Hypertension SURGICAL HISTORY : None. ENCOUNTER: Subsequent ACUITY: 1 week PAIN SCORE: Non-responsive. LOCATION: Bilateral chest FINDINGS: A single view of the chest demonstrates the endotracheal tube, nasogastric tube and right IJ central line in good position. Patchy bilateral airspace disease right the lungs. Left chest tube overlies th e lower costophrenic angle. Right-sided chest tube overlies the hemidiaphragm Osseous structures are intact. CONCLUSION: Patchy airspace disease throughout the lungs. Tubes and catheter are in good position. Anant Cohen MD on June 26, 2017 at 5:39 Board Certified Radiologist. This report was verified electronically.
--- NOTE | 2017-06-26 06:52 | HHI.NSPN ---
History Chief Complaint: Unable to obtain due to patient's clinical condition. Interval History This 57-year-old right-handed female had the acute onset of severe headache early this morning and also complained of weakness in her legs, left more than right, along with paresthesias and subsequently became more lethargic. She was found on the floor by her with positive complaints of nausea. On arrival to the emergency room she was lethargic but responsive. CT scan of the head obtained reveals extensive diffuse subarachnoid hemorrhage involving the basal cisterns and also extending into the bilateral sylvian fissure and interhemispheric fissure and prepontine fissure along with suprasellar cistern. There is also mild hydrocephalus associated with this and slight dilation of the temporal horns bilaterally. 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 The patient is lethargic but does respond to verbal commands and follows simple instructions. 06/16/17: 5x4x3 mm ACOM aneurysm successfully treated with coil embolization on 06/15/17. No significant vasospasm seen involving the left intracranial vasculature per interventional radiology. Pt awakens to voice. Complains of headache all over. Has nausea and had episode of vomiting last night. Pt denies any paresthesias or weakness. She is lethargic and prefers her eyes closed, but awakens to voice. 06/17/17: Pt awake more alert this afternoon. Complains of headache all over. Nausea. Pt was up in chair earlier. Follows commands well. 06/18/17: Pt currently sedated for a STAT CT head that was ordered by critical care. Discussed with critical care and pt was acting restless and more confused but was following commands and gripping hands symmetrically. A follow up CT was obtained which revealed a new left frontal intraparenchymal hemorrhage with surrounding edema. Critical care is going to intubate pt for airway control and Dr. Yen is going to place a ventriculostomy drain. 06/19: Patient remains intubated and mechanically ventilated. She is on propofol 50 mcg/kg/min and midazolam 4 mL/hr for sedation. She has 3% saline infusing. She is on vasopressin at 6 mL/hr for blood pressure support. Nursing reports that she drain 75 mL from the ventriculostomy at 1400. This morning during a sedation vacation the patient did open her eyes to voice. She also reports that the patient's ICP has been running 5 to 8 but will go up to 10 when the ventriculostomy system is clamped or the patient is repositioned. 06/20/17: Remains intubated, mechanical ventilation, intravenous sedation. 06/21/17: possible septic shock, on multiple pressors. EVD draining well, bloody CSF, ICP wnl. f/u CTA Head yesterday neg for vasospasm. TCDs this morning pending. Sedation turned off 30 mins ago when rounded, no eye opening, not following commands, no withdrawals to extremities. 06/22: Patient intubated & mechanically ventilated with midazolam at 6 mL/hr infusing. Patient is being tranfused. Tech at bedside to do TCD when seen and on yesterday's there was no significant vasospasm seen. On multiple vasopressors for blood pressure support. Nursing reports that highest ICP for her was 4 but during the night it did spike to 13 but it went back down quickly. Also that patient is slightly withdrawing. 06/23/17: pressors being weaned off, s/p chest tube placement for severe pleural effusions. ICPs remains wnl. EVD draining well. Remains sedated. TCD this am. 06/24: Patient remains intubated & mechanically ventilated. She is on midazolam & fentanyl drips. A norepinephrine drip is also infusing for blood pressure support. The tech is at the bedside doing the TCD study this morning. 06/25: Patient is intubated but off all sedation at this time. Responsive only to painful stimulation 06/26: Patient remains intubated and sedated now secondary increased respiratory rate. ICPs remain within normal limits. EVD draining xanthochromic fluid. Exam Results Vital Signs Date Time Temp Pulse Resp B/P Pulse Ox O2 Delivery O2 Flow Rate FiO2 06/26/17 04:59 100 55 06/26/17 04:00 99.0 85 17 133/67 06/25/17 20:00 Mechanical Ventilator Intake and Output 06/25/17 06/25/17 06/26/17 08:00 16:00 00:00 Intake Total 1423 ml 1055 ml 687 ml Output Total 1301.0 ml 1180 ml 2064 ml Balance 122.0 ml -125 ml -1377 ml Physical Examination NEUROLOGICAL: Remains unchanged. Pupils 3 mm and reactive gaze midline. Responds to painful stimulation left upper extremity withdrawal. Posturing and right upper extremity to pain. Weak lower extremity movement to pain. Does not follow commands. Ventriculostomy at 10 cm H2O pressure draining xanthochromic CSF. ICPs remain within normal limits. Lab, Micro, Other Results Laboratory Tests Test 06/25/17 06/26/17 15:04 04:00 Potassium Level 3.9 2.9 White Blood Count 19.9 Red Blood Count 3.10 Hemoglobin 9.6 Hematocrit 28.3 Mean Corpuscular Volume 91.3 Mean Corpuscular Hemoglobin 31.0 Mean Corpuscular Hemoglobin 34.0 Concent Red Cell Distribution Width 14.0 Platelet Count 101 Mean Platelet Volume 9.8 Neutrophils (%) (Auto) 87.1 Lymphocytes (%) (Auto) 6.1 Monocytes (%) (Auto) 6.7 Eosinophils (%) (Auto) 0.0 Basophils (%) (Auto) 0.1 Neutrophils # (Auto) 17.3 Lymphocytes # (Auto) 1.2 Monocytes # (Auto) 1.3 Eosinophils # (Auto) 0.0 Basophils # (Auto) 0.0 CBC Comment DIFF FINAL Differential Comment Sodium Level 152 Chloride Level 115 Carbon Dioxide Level 30.3 Anion Gap 7 Blood Urea Nitrogen 26 Creatinine 0.51 Estimat Glomerular Filtration 123 Rate Random Glucose 125 Calcium Level 8.2 Magnesium Level 2.3 Total Bilirubin 0.9 Aspartate Amino Transf 38 (AST/SGOT) Alanine Aminotransferase 46 (ALT/SGPT) Alkaline Phosphatase 154 Total Protein 5.6 Albumin 4.1 Date/Time Procedure Status Source Growth 06/23/17 20:50 Aerobic Blood Culture - Preliminary Resulted Blood Peripheral NO GROWTH IN 2 DAYS 06/23/17 20:50 Anaerobic Blood Culture - Preliminary Resulted Blood Peripheral NO GROWTH IN 2 DAYS 06/22/17 12:50 Gram Stain - Final Complete Fluid Pleural Fluid 06/22/17 12:50 Body Fluid Culture - Final Complete Fluid Pleural Fluid NO GROWTH IN 72 HRS.--AEROBICALLY OR ... 06/22/17 12:50 Fungal Smear - Final Resulted Fluid Pleural Fluid NO FUNGAL ELEMENTS SEEN. 06/22/17 12:50 Fungal Culture Resulted Fluid Pleural Fluid Pending 06/22/17 12:50 Acid Fast Stain - Final Complete Fluid Pleural Fluid 06/22/17 12:50 Mycobacterial Culture - Final Complete Fluid Pleural Fluid 06/21/17 12:24 Aerobic Blood Culture - Final Resulted Blood Peripheral Staphylococcus Epidermidis 06/21/17 12:24 Anaerobic Blood Culture - Preliminary Resulted Blood Peripheral NO GROWTH IN 4 DAYS 06/21/17 10:45 Urine Culture - Final Complete Urine Catheterized Urine NO GROWTH IN 48 HOURS. Medical Decision Making Impression and Plan mpression: 1. 57 y/o FM presenting with subarachnoid hemorrhage status post coiling A comm aneurysm. Postoperative hydrocephalus necessitating ventriculostomy. TCD negative for vasospasm. Neuro status poor 2. Pulmonary edema with Bilateral pulmonary effusions, clinical sepsis Plan: Continue aggressive ICP management with ventricular drainage and bilateral chest tube drainage. Prognosis guarded. Dixon Hunter MD Jun 26, 2017 06:52
[2017-06-26 08:25] LABS: C. DIFF EPI 027 PRESUMPTIVE NEGATIVE (NEGATIVE)
[2017-06-26] MEDS: levETIRAcetam INJ 500 MG in SODIUM CHLORIDE 0.9% INJ 100 ML IV SCH ×2 (08:32→19:48)
[2017-06-26] MEDS: niCARdipine INJ 25 MG in SODIUM CHLOR 0.9% 250 ML INJ 250 ML IV SCH (08:32)
[2017-06-26] MEDS: DOCUSATE SODIUM 50 MG/SENNA 8.6 MG TAB PO SCH ×2 (08:32→19:43)
[2017-06-26] MEDS: BENEPROTEIN POWDER 1 PACK G-TUBE SCH ×3 (08:33→17:43)
[2017-06-26] MEDS: POTASSIUM CHLORIDE 25 MEQ EFFERVESCENT TAB PO SCH ×2 (08:33→19:47)
--- NOTE | 2017-06-26 08:55 | RADRPT ---
EXAM DATE/TIME: 06/26/2017 07:28 [facility] COMPARISON: US TRANSCRANIAL DOPPLER COMPLETE, June 25, 2017, 7:31. INDICATIONS : Subarachnoid hemorrhage. MEDICAL HISTORY : Hypertension. Arthritis. Subarachnoid hemorrhage. Weakness SURGICAL HISTORY : Tubal ligation. Aneurysm coil. ENCOUNTER: [facility] ACUITY: 1 week PAIN SCORE: Nonresponsive. LOCATION: Bilateral cranial Current Exam: Jun 26, 2017 [place] Ratio: Right: 1.7 Left: 1.4 [place] Ratio: Right: 1.2 Left: 1.1 Previous Exam: Jun 25, 2017 [place] Ratio: Right: 1.76 Left: 2.68 [place] Ratio: Right: 0.97 Left: 1.6 FINDINGS: Examination performed at bedside. Real-time ultrasound with the assistance of color and spectral Dop pler was utilized to evaluate the intracerebral circulation. Time-averaged maximal velocities are ca lculated in cm/s. CONCLUSION: No evidence for vasospasm. Jose E Méndez MD FACR on June 26, 2017 at 8:52 Board Certified Radiologist. This report was verified electronically.
[2017-06-26 09:49] LABS: C. DIFF TOXIN PCR POSITIVE (NEGATIVE)
[2017-06-26] MEDS ORDERED: POTASSIUM CHLOR 20 MEQ PREMIX 100 ML IV ONE (11:00)
--- NOTE | 2017-06-26 11:13 | HHI.CCPN ---
Subjective Remarks/Hospital Course 06/15: Acute SAH with a-com aneurysm. Coiled 06/15. 06/16: BP control acceptable. Severe headache, but she gets somnolent after minimal analgesia. Some nausea and vomiting. 06/17: BP control good. Mild permissive hypertension 150s. Persistent headache and anxiety. Patient requests nicoderm patch but I am concerned about promoting unnecessary vasospasm. 06/18: Sudden onset altered mental status. Patient complaining of head ache and turning in bed, somewhat decreased level of consciousness. Transcranial Doppler did not show vasospasm today morning. Continue permissive hypertension. Stat CT of the head and CT angiogram ordered and discussed with interventional radiology Dr. Sanderson. (Dr. Yen in [place]) 06/19: Blood pressure in good range.TCDs today. Start TFs. 06/20: TCD 06/19 showed increase in the degree of vasospasm on the left, and decrease in degree of vasospasm on the right since the prior exam from one day ago. Getting CTA brain today. Remains on vasopressin and Emil-Synephrine to maintain systolic blood pressure 160-180. EVD drained 182 mL in 24 hours, ICP well controlled. UO 7L in 24 hours 06/21: Remains extremely critical. Profound shock, on 4 pressors to maintain SBP >110. On norepinephrine, dopamine, Emil-Synephrine and vasopressin. Unable to obtain target systolic blood pressure more than 160. Patient was started on Zosyn yesterday added vancomycin today. Teixeira cultures sent stress dose hydrocortisone started. Start Bne-trac monitoring. UO >12 L in 24 hours, osmolality studies not consistent with DI joseph though partial DI is possible. Check urine sp gravity and osm again. and Start scheduled DDAVP is suggestive of DI. Family updated in detail 06/22: Overnight developed worsening hypoxemia, refractory to conventional ventilator modes. With PEEP of 12 and FiO2 100% saturation remained in low 80s. Dr. Rodriguez placed on BiLevel (APPV) with improvement in oxygen saturation 90 % and no CO2 retention. I evaluated the patient with bedside ultrasound which showed moderate to large bilateral pleural effusions. Changed mode to PCV to avoid pneumothorax while placing chest tube. After this I placed 10 [place] [employer] pigtail catheter on the right side with immediate drainage of total 900 mL clear pleural fluid. Postprocedure oxygen saturation improved to 100% immediately, I was able to reduce the Insp pressure to 30. I will proceed with L pigtail chest tube after CXR confirms no complications 06/23: Remains intubated heavily sedated. Oxygenation improved after bilateral pigtail chest tube placement yesterday. R drained 1.1L and L 0.9L. lowering doses of Levophed and vasopressin. Discontinue vasopressin today 06/24: Heavy sedation limiting neuro exam. Decreasing pressor requirement as patient is maintaining blood pressure. Urine output adequate. Sodium 158 discontinue 3% saline 06/25: Continues to have no evidence of vasospasm. Coming off pressors. Sedation held now. Sodium 155. Overall continues to be positive fluid balance. We'll give IV Bumex 2 mg 1 with potassium replacement and stop all IV fluids. target SBP 140-150 06/26: Patient examined of sedation. White count slightly going up C. difficile positive chest x-ray shows some edema will do repeat dose of Bumex. Systolic blood pressure 140-160 maintained on Cardene infusion Objective Vital Signs Date Time Temp Pulse Resp B/P Pulse Ox O2 Delivery O2 Flow Rate FiO2 06/26/17 08:35 100 50 06/26/17 08:00 98.8 80 17 150/88 06/26/17 07:00 Mechanical Ventilator Intake and Output 06/25/17 06/25/17 06/26/17 08:00 16:00 00:00 Intake Total 1423 ml 1055 ml 687 ml Output Total 1301.0 ml 1180 ml 2064 ml Balance 122.0 ml -125 ml -1377 ml Result Diagram: 06/26/17 0400 06/26/17 0400 Objective Remarks Gen: Sedated, ventilated, middle age woman. Critically ill on Cardene infusion to maintain systolic blood pressure less than 150 Head: Atraumatic. EVD in place, at 10. ICP well controlled Neck: Supple, orally intubated. Lungs: Air entry diminished bilaterally with coarse breath sounds. Bilateral pigtail chest tube with no air leak 1280 ml in 24 hours Heart: RRR, no m,r. No JVD. Abdomen: Soft, nondistended, no guarding. BS active. Extremities: Peripheral pulses are palpable Neuro: Pupils are equal reactive. Positive cough and gag. 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 - Transcranial Doppler showing vasospasm on the left side 06/19/17, stat CTA no significant vasospasm. Since then serial TCD had been neg for vasospasm - CT head on 06/18/17 had shown left frontal vasogenic edema and intraparenchymal hemorrhage, rpt 06/21 unchanged - Keep systolic blood pressure 140-150 - Resumed Nimotop as BP has improved, at 30 mg po q4. Increase to 60 q4 06/26 - Keep sodium 150-155, keep magnesium more than 2. - Serum osmolality, urine osmolality, urine specific gravity not consistent with DI-may have partial DI - CT brain today CVS: Severe shock/Septic and neurogenic-now resolved Fluid overload - Off all pressors. Target SBP 140-150 - Echo EF 65-70% - DCd maintenance IV fluids and bicarbonate infusion 06/22. DCd 3% - Nimodipine resumed, increase to 60 mg by mouth every 8 hours - DCd Ben Trac monitoring - IV Bumex 1mg x1 with KCL replacement. RESP: Acute hypoxemic respiratory failure Bilateral pleural effusion HCAP - Intubated for airway protection 06/18/17. PRVC - S/p bilateral pigtail chest tubes with approximately 1 L each removed 06/22/17 , still with high output 1.3L in 24 hours - DuoNeb every 6 hours and when necessary ventilator bundle. HOB elevated. - No spontaneous breathing trials - Discontinue stress dose steroids 06/26 GI: - Tube feedings, IV Protonix - Having daily bowel movements - C. difficile positive IV Flagyl started : - Sneed for accurate intake output - Electrolyte replacement per protocol - IV Bumex as above ID/HEME: Staph aureus pneumonia C. difficile colitis - IV Flagyl started 06/26 - Continue cefazoline IV per ID - Sputum cx MSSA. blood cx 12/02 Coag neg staph ENDO: Severe hypokalemia Hypomagnesemia - Electrolyte replacement per protocol - Scheduled potassium and magnesium for hypokalemia Proph: - No chemical DVT prophylaxis. Will start Lovenox if cleared by Elsa Sullivan, and repeat CT brain today shows resolution of ICH - SCDs. - Protonix. Overall impression: Extensive SAH associated with ACOM aneurysm. She is critically ill, with vasospasm and respiratory failure. Large amount of blood, elevated risk for vasospasm. No Discussed at length with family at the bedside. High Mortality. family understands that patient is very critically ill with guarded prognosis. Critical care 35 mins Tona Rosen MD Jun 26, 2017 11:13
[2017-06-26] MEDS ORDERED: POTASSIUM CHLORIDE 25 MEQ EFFERVESCENT TAB PO ONE (11:30)
[2017-06-26] MEDS: ACETAMINOPHEN 650 MG/20.3 ML UDC PO PRN (11:37)
[2017-06-26] MEDS: metroNIDAZOLE 500 MG INJ 100 ML IV SCH ×2 (11:37→19:48)
[2017-06-26] MEDS ORDERED: BUMETANIDE INJ 1 MG/4 ML VIAL IV PUSH ONE (12:00)
--- NOTE | 2017-06-26 13:27 | RADRPT ---
EXAM DATE/TIME: 06/26/2017 12:50 [facility] COMPARISON: CT BRAIN W/O CONTRAST, June 18, 2017, 10:57. CT BRAIN W/O CONTRAST, June 21, 2017, 15:49. INDICATIONS : Follow up for intracerebral hemorrhage. RADIATION DOSE: 44.96 CTDIvol (mGy) MEDICAL HISTORY : Cardiovascular disease. Hypertension. SURGICAL HISTORY : Tubal ligation. aneurysm coil ENCOUNTER: Subsequent ACUITY: 2 weeks PAIN SCALE: Non-responsive LOCATION: cranial TECHNIQUE: Multiple contiguous axial images were obtained of the head. Using automated exposure control and adj ustment of the mA and/or kV according to patient size, radiation dose was kept as low as reasonably a chievable to obtain optimal diagnostic quality images. DICOM format image data is available electro nically for review and comparison. FINDINGS: Patient is status post aneurysm coiling. Ventriculostomy is in good position. Persistent subarachno id blood remains in the sylvian regions bilaterally. Minimal if intraventricular blood remains. Sma ll parenchymal hemorrhage remains in the left orbitofrontal region. The posterior fossa is unremarkable. CONCLUSION: Minimal persistent subarachnoid blood as described above. Jose E Méndez MD FACR on June 26, 2017 at 13:19 Board Certified Radiologist. This report was verified electronically.
[2017-06-26] MEDS: SODIUM CHLORID 0.9% IV SCH ×2 (14:00→21:55)
[2017-06-26] MEDS: SODIUM CHLORIDE IV SCH ×2 (14:00→21:55)
[2017-06-26] MEDS ORDERED: PHARMACY ORDERED LAB ONE (15:45)
[2017-06-26] MEDS ORDERED: RESP: ALBUTEROL 2.5 MG/IPRATROPIUM 0.5 MG NEB (SCH) NEB (16:00)
[2017-06-27] VITALS (19 sets, daily range): BP systolic 121–178; BP diastolic 62–87; PULSE 68–98; RESP 16–18; TEMP 98.5–100.7; O2SAT 99–100
[2017-06-27] MEDS: RESP: ALBUTEROL 2.5 MG/IPRATROPIUM 0.5 MG NEB (SCH) NEB ×4 (01:07→19:39)
[2017-06-27] MEDS: ceFAZolin 2 GM PREMIX 50 ML IV SCH ×3 (01:51→18:34)
[2017-06-27] MEDS: ALBUMIN HUMAN 25% 25 GM/100 ML BAGP IV SCH ×2 (01:52→10:38)
[2017-06-27] MEDS: niMODipine 30 MG CAP PO SCH ×6 (03:32→23:31)
[2017-06-27] MEDS: CHLORHEXIDINE GLUCONATE 2 % 1 PACK (2 CLOTHS) TOP SCH (03:32)
[2017-06-27] MEDS: metroNIDAZOLE 500 MG INJ 100 ML IV SCH ×3 (03:32→20:56)
[2017-06-27] MEDS: MAGNESIUM OXIDE 400 MG TAB PO SCH ×3 (04:05→20:56)
[2017-06-27] MEDS: PROPOFOL 1000 MG/100 ML INJ 100 ML IV SCH (05:18)
[2017-06-27] MEDS: POTASSIUM CHLORIDE 25 MEQ EFFERVESCENT TAB PO SCH ×2 (07:59→20:56)
[2017-06-27] MEDS: DOCUSATE SODIUM 50 MG/SENNA 8.6 MG TAB PO SCH ×2 (08:00→20:56)
[2017-06-27] MEDS: BENEPROTEIN POWDER 1 PACK G-TUBE SCH ×3 (08:00→18:34)
[2017-06-27] MEDS: levETIRAcetam INJ 500 MG in SODIUM CHLORIDE 0.9% INJ 100 ML IV SCH ×2 (08:00→20:55)
--- NOTE | 2017-06-27 08:23 | RADRPT ---
EXAM DATE/TIME: 06/27/2017 07:16 [facility] COMPARISON: US TRANSCRANIAL DOPPLER COMPLETE, June 26, 2017, 7:28. INDICATIONS : Subarachnoid hemorrhage. MEDICAL HISTORY : Hypertension. Arthritis. Subarachnoid hemorrhage. SURGICAL HISTORY : Tubal ligation. Aneurysm coil. ENCOUNTER: Subsequent ACUITY: 2 weeks PAIN SCORE: Nonresponsive. LOCATION: Bilateral cranial Current Exam: Jun 27, 2017 [place] Ratio: Right: 2.6 Left: 1.8 [place] Ratio: Right: UTO Left: 2.1 Previous Exam: Jun 26, 2017 [place] Ratio: Right: 1.7 Left: 1.4 Fern[place]dez Ratio: Right: 1.2 Left: 1.1 FINDINGS: Examination performed at bedside. Real-time ultrasound with the assistance of color and spectral Dop pler was utilized to evaluate the intracerebral circulation. Time-averaged maximal velocities are ca lculated in cm/s. CONCLUSION: There is no evidence for vasospasm. Jose E Méndez MD FACR on June 27, 2017 at 8:20 Board Certified Radiologist. This report was verified electronically.
--- NOTE | 2017-06-27 10:35 | HHI.NSPN ---
History Chief Complaint: Unable to obtain due to patient's clinical condition. Interval History This 57-year-old right-handed female had the acute onset of severe headache early this morning and also complained of weakness in her legs, left more than right, along with paresthesias and subsequently became more lethargic. She was found on the floor by her with positive complaints of nausea. On arrival to the emergency room she was lethargic but responsive. CT scan of the head obtained reveals extensive diffuse subarachnoid hemorrhage involving the basal cisterns and also extending into the bilateral sylvian fissure and interhemispheric fissure and prepontine fissure along with suprasellar cistern. There is also mild hydrocephalus associated with this and slight dilation of the temporal horns bilaterally. 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 The patient is lethargic but does respond to verbal commands and follows simple instructions. 06/16/17: 5x4x3 mm ACOM aneurysm successfully treated with coil embolization on 06/15/17. No significant vasospasm seen involving the left intracranial vasculature per interventional radiology. Pt awakens to voice. Complains of headache all over. Has nausea and had episode of vomiting last night. Pt denies any paresthesias or weakness. She is lethargic and prefers her eyes closed, but awakens to voice. 06/17/17: Pt awake more alert this afternoon. Complains of headache all over. Nausea. Pt was up in chair earlier. Follows commands well. 06/18/17: Pt currently sedated for a STAT CT head that was ordered by critical care. Discussed with critical care and pt was acting restless and more confused but was following commands and gripping hands symmetrically. A follow up CT was obtained which revealed a new left frontal intraparenchymal hemorrhage with surrounding edema. Critical care is going to intubate pt for airway control and Dr. Yen is going to place a ventriculostomy drain. 06/19: Patient remains intubated and mechanically ventilated. She is on propofol 50 mcg/kg/min and midazolam 4 mL/hr for sedation. She has 3% saline infusing. She is on vasopressin at 6 mL/hr for blood pressure support. Nursing reports that she drain 75 mL from the ventriculostomy at 1400. This morning during a sedation vacation the patient did open her eyes to voice. She also reports that the patient's ICP has been running 5 to 8 but will go up to 10 when the ventriculostomy system is clamped or the patient is repositioned. 06/20/17: Remains intubated, mechanical ventilation, intravenous sedation. 06/21/17: possible septic shock, on multiple pressors. EVD draining well, bloody CSF, ICP wnl. f/u CTA Head yesterday neg for vasospasm. TCDs this morning pending. Sedation turned off 30 mins ago when rounded, no eye opening, not following commands, no withdrawals to extremities. 06/22: Patient intubated & mechanically ventilated with midazolam at 6 mL/hr infusing. Patient is being tranfused. Tech at bedside to do TCD when seen and on yesterday's there was no significant vasospasm seen. On multiple vasopressors for blood pressure support. Nursing reports that highest ICP for her was 4 but during the night it did spike to 13 but it went back down quickly. Also that patient is slightly withdrawing. 06/23/17: pressors being weaned off, s/p chest tube placement for severe pleural effusions. ICPs remains wnl. EVD draining well. Remains sedated. TCD this am. 06/24: Patient remains intubated & mechanically ventilated. She is on midazolam & fentanyl drips. A norepinephrine drip is also infusing for blood pressure support. The tech is at the bedside doing the TCD study this morning. 06/25: Patient is intubated but off all sedation at this time. Responsive only to painful stimulation 06/26: Patient remains intubated and sedated now secondary increased respiratory rate. ICPs remain within normal limits. EVD draining xanthochromic fluid. 06/27: Patient remains intubated and sedated. Exam Results Vital Signs Date Time Temp Pulse Resp B/P Pulse Ox O2 Delivery O2 Flow Rate FiO2 06/27/17 08:00 40 06/27/17 08:00 99.4 68 16 132/70 100 06/27/17 07:00 Mechanical Ventilator Intake and Output 06/26/17 06/26/17 06/27/17 08:00 16:00 00:00 Intake Total 616 ml 780 ml 771 ml Output Total 1485 ml 2469 ml 1369 ml Balance -869 ml -1689 ml -598 ml Physical Examination Intubated, and sedated. Opens eyes to tactile stimulation. With significant encouragement I was able to get the patient to squeeze and release her hand child custody evaluator on the right. CN: pupils 2 mm equal. Conjugate gaze Motor: Weak response upper extremities to painful stimulation. No response lower extremities. Lab, Micro, Other Results Laboratory Tests Test 06/26/17 06/27/17 20:00 03:50 Potassium Level 2.8 3.6 Date/Time Procedure Status Source Growth 06/23/17 20:50 Aerobic Blood Culture - Preliminary Resulted Blood Peripheral NO GROWTH IN 3 DAYS 06/23/17 20:50 Anaerobic Blood Culture - Preliminary Resulted Blood Peripheral NO GROWTH IN 3 DAYS 06/22/17 12:50 Gram Stain - Final Complete Fluid Pleural Fluid 06/22/17 12:50 Body Fluid Culture - Final Complete Fluid Pleural Fluid NO GROWTH IN 72 HRS.--AEROBICALLY OR ... 06/22/17 12:50 Fungal Smear - Final Resulted Fluid Pleural Fluid NO FUNGAL ELEMENTS SEEN. 06/22/17 12:50 Fungal Culture Resulted Fluid Pleural Fluid Pending 06/22/17 12:50 Acid Fast Stain - Final Complete Fluid Pleural Fluid 06/22/17 12:50 Mycobacterial Culture - Final Complete Fluid Pleural Fluid Medical Decision Making Impression and Plan mpression: 1. 57 y/o FM presenting with subarachnoid hemorrhage status post coiling A comm aneurysm. Postoperative hydrocephalus necessitating ventriculostomy. TCD negative for vasospasm. Neuro status poor 2. Pulmonary edema with Bilateral pulmonary effusions, clinical sepsis Plan: Continue aggressive ICP management with ventricular drainage and bilateral chest tube drainage. Prognosis guarded. Dixon Hunter MD Jun 27, 2017 10:35
[2017-06-27 11:07] LABS: AUTOMATED NEUTROPHIL # 13.4 TH/MM3 (1.8-7.7); BASOPHIL # 0.1 TH/MM3 (0-0.2); BASOPHIL % 0.4 % (0.0-2.0); EOSINOPHIL # 0.4 TH/MM3 (0-0.4); EOSINOPHIL % 2.5 % (0.0-4.0); HEMO FLAGS DIFF FINAL; LYMPH % 9.4 % (9.0-44.0); LYMPHOCYTE # 1.5 TH/MM3 (1.0-4.8); MEAN CELL VOLUME 92.7 FL (80.0-100.0); MEAN CORPUSCULAR HEMOGLOBIN 30.2 PG (27.0-34.0); MEAN CORPUSCULAR HGB CONC 32.6 % (32.0-36.0); MONO % 5.7 % (0.0-8.0); PLATELET COUNT 106 TH/MM3 (150-450); RED BLOOD COUNT 3.24 MIL/MM3 (4.00-5.30); RED CELL DISTRIBUTION WIDTH 14.3 % (11.6-17.2); WHITE BLOOD COUNT 16.3 TH/MM3 (4.0-11.0)
[2017-06-27 11:54] LABS: ALKALINE PHOSPHATASE 161 U/L (45-117); ALT (GPT) 90 U/L (10-53); ANION GAP 3 MEQ/L (5-15); AST (GOT) 131 U/L (15-37); BICARBONATE 31.8 MEQ/L (21.0-32.0); BLOOD UREA NITROGEN 26 MG/DL (7-18); CHLORIDE 114 MEQ/L (98-107); GLOMERULAR FILTRATION RATE 179 ML/MIN (>89); MAGNESIUM 2.2 MG/DL (1.5-2.5); POTASSIUM 3.7 MEQ/L (3.5-5.1); SODIUM (NA) 149 MEQ/L (136-145); TOTAL BILIRUBIN ADULT 0.8 MG/DL (0.2-1.0)
--- NOTE | 2017-06-27 14:33 | HHI.IDPN ---
Subjective Subjective Remarks Ms. Nevarez is a 57-year-old female with past medical history significant for hypertension with SAH, acute VDRF,on vent developed MSSA PNA, sp b/l chest tubes has liquid diarrhea, off pressors Tmax 100.6 remains intubated and sedated. ICP pressures in normal range. Antibiotics cefazoline IV Vanco IV Levaquin IV Lines Line sites with no e.o infection. Past Medical History Hypertension Tubal ligation Coiling of the aneurysm this admission. External ventricular device placement. Allergies: Coded Allergies: No Known Allergies (Verified , 02/25/16) Objective . Vital Signs Date Time Temp Pulse Resp B/P Pulse Ox O2 Delivery O2 Flow Rate FiO2 06/27/17 12:00 40 06/27/17 12:00 98.5 94 18 145/76 100 06/27/17 11:34 99 40 06/27/17 08:00 40 06/27/17 08:00 99.4 68 16 132/70 100 06/27/17 07:45 100 40 06/27/17 07:45 100 40 06/27/17 07:00 100 Mechanical Ventilator 40 06/27/17 07:00 69 06/27/17 04:39 100 40 06/27/17 04:00 40 06/27/17 04:00 99.2 77 18 121/65 100 06/27/17 00:59 100 40 06/27/17 00:00 99.6 83 17 135/73 100 Arterial Line 06/27/17 00:00 40 06/26/17 23:00 83 06/26/17 21:00 100 Mechanical Ventilator 40 06/26/17 20:13 100 40 06/26/17 20:00 99.0 76 18 136/69 100 06/26/17 20:00 40 06/26/17 20:00 100 Mechanical Ventilator 40 06/26/17 16:00 45 06/26/17 16:00 99.0 79 16 130/68 100 06/26/17 15:17 99 40 06/26/17 15:00 72 06/26/17 06/26/17 06/27/17 15:00 23:00 07:00 Intake Total 780 ml 771 ml 783 ml Output Total 2469 ml 1369 ml 1107 ml Balance -1689 ml -598 ml -324 ml IV Total 556 ml 462 ml 459 ml Tube Feeding 64 ml 189 ml 284 ml Albumin 100 ml Other 60 ml 120 ml 40 ml Output Urine Total 1800 ml 1125 ml 900 ml Stool Total 175 ml 100 ml Tube Feeding Residual Discard 0 ml Chest Tube Drainage Total 425 ml 110 ml 160 ml Drainage Total 69 ml 34 ml 47 ml . Laboratory Tests Test 06/26/17 06/27/17 04:00 10:47 White Blood Count 19.9 TH/MM3 16.3 TH/MM3 Red Blood Count 3.10 MIL/MM3 3.24 MIL/MM3 Hemoglobin 9.6 GM/DL 9.8 GM/DL Hematocrit 28.3 % 30.0 % Mean Corpuscular Volume 91.3 FL 92.7 FL Mean Corpuscular Hemoglobin 31.0 PG 30.2 PG Mean Corpuscular Hemoglobin 34.0 % 32.6 % Concent Red Cell Distribution Width 14.0 % 14.3 % Platelet Count 101 TH/MM3 106 TH/MM3 Mean Platelet Volume 9.8 FL 9.6 FL Neutrophils (%) (Auto) 87.1 % 82.0 % Lymphocytes (%) (Auto) 6.1 % 9.4 % Monocytes (%) (Auto) 6.7 % 5.7 % Eosinophils (%) (Auto) 0.0 % 2.5 % Basophils (%) (Auto) 0.1 % 0.4 % Neutrophils # (Auto) 17.3 TH/MM3 13.4 TH/MM3 Lymphocytes # (Auto) 1.2 TH/MM3 1.5 TH/MM3 Monocytes # (Auto) 1.3 TH/MM3 0.9 TH/MM3 Eosinophils # (Auto) 0.0 TH/MM3 0.4 TH/MM3 Basophils # (Auto) 0.0 TH/MM3 0.1 TH/MM3 CBC Comment DIFF FINAL DIFF FINAL Differential Comment Laboratory Tests Test 06/25/17 06/26/17 06/26/17 06/27/17 15:04 04:00 20:00 03:50 Potassium Level 3.9 MEQ/L 2.9 MEQ/L 2.8 MEQ/L 3.6 MEQ/L Sodium Level 152 MEQ/L Chloride Level 115 MEQ/L Carbon Dioxide Level 30.3 MEQ/L Anion Gap 7 MEQ/L Blood Urea Nitrogen 26 MG/DL Creatinine 0.51 MG/DL Estimat Glomerular Filtration 123 ML/MIN Rate Random Glucose 125 MG/DL Calcium Level 8.2 MG/DL Magnesium Level 2.3 MG/DL Total Bilirubin 0.9 MG/DL Aspartate Amino Transf 38 U/L (AST/SGOT) Alanine Aminotransferase 46 U/L (ALT/SGPT) Alkaline Phosphatase 154 U/L Total Protein 5.6 GM/DL Albumin 4.1 GM/DL Test 06/27/17 10:47 Sodium Level 149 MEQ/L Potassium Level 3.7 MEQ/L Chloride Level 114 MEQ/L Carbon Dioxide Level 31.8 MEQ/L Anion Gap 3 MEQ/L Blood Urea Nitrogen 26 MG/DL Creatinine 0.37 MG/DL Estimat Glomerular Filtration 179 ML/MIN Rate Random Glucose 120 MG/DL Calcium Level 8.2 MG/DL Magnesium Level 2.2 MG/DL Total Bilirubin 0.8 MG/DL Aspartate Amino Transf 131 U/L (AST/SGOT) Alanine Aminotransferase 90 U/L (ALT/SGPT) Alkaline Phosphatase 161 U/L Total Protein 5.3 GM/DL Albumin 3.7 GM/DL Imaging Last Impressions Chest X-Ray 06/25/17 0600 Signed Impressions: Service Date/Time: Sunday, June 25, 2017 04:53 - CONCLUSION: Increased left greater than right perihilar pulmonary parenchymal opacity likely representing pulmonary edema. Trino Hernandez MD Transcranial Doppler Study Complete 06/25/17 0000 Signed Impressions: Service Date/Time: Sunday, June 25, 2017 07:31 - CONCLUSION: 1. No evidence for vasospasm. Brown Schuler MD Head CT 06/21/17 0000 Signed Impressions: Service Date/Time: Wednesday, June 21, 2017 15:49 - CONCLUSION: Evolving intracranial hemorrhage. Nothing to suggest new hemorrhage. Silas Mtz MD Head CTA 06/20/17 0600 Signed Impressions: Service Date/Time: Tuesday, June 20, 2017 07:52 - CONCLUSION: No evidence for any significant spasm. KJesse Montez MD Neck CTA 06/15/17 1125 Signed Impressions: Service Date/Time: Thursday, June 15, 2017 12:10 - CONCLUSION: 1. No stenosis of either carotid artery. 2. No aneurysm seen. 3. Normal variants of the aortic arch. Pascual Sanderson MD Cerebral Arteriogram 06/15/17 0000 Signed Impressions: Service Date/Time: Thursday, June 15, 2017 13:11 - CONCLUSION: 1. 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 2. No significant vasospasm seen on the left. 3. I spoke with Dr. Yen immediately following the procedure. Emile Walker Jr., MD Physical Exam GENERAL: This is a well-nourished, well-developed patient, in respiratory distress. SKIN: No rashes, ecchymoses or lesions. Cool and dry. HEAD: EVD in place with clear yellow fluid EYES:. No scleral icterus. No injection or drainage. ENT: Nose without bleeding, purulent drainage or septal hematoma. Orally intubated NECK: Trachea midline. Supple, nontender, no meningeal signs. CARDIOVASCULAR: Regular rate and rhythm without murmurs, gallops, or rubs. RESPIRATORY: Clear to auscultation. Breath sounds equal bilaterally. Bilateral chest tubes in place with serous d/c GASTROINTESTINAL: Abdomen soft, non-tender, nondistended. No hepatosplenomegaly Incontinent of liquin brown stool MUSCULOSKELETAL: Extremities without clubbing, cyanosis, + small amount of edema. NEUROLOGICAL: Off sedation with no meaningful response. Agitated Psych could not be assessed IV line sites with no evidence of infection. R IJ in place wo e/o infx Assessment & Plan Remarks Sepsis Aspiration Pneumonia on admission. MSSA Acute resp failure on vent Acute encephalopathy: Acute SAH, metabolic, infection. Acute SAH s/p aneurysm coiling. Possible DI m'ment per [facility] MD. Cdiff positive diarrhea Staph epi low grade bacteremia, doubt clin significance Critically ill. Simple pleural effusions, not cw empyema Recs: Continue cefazolin IV Continue Flagyl oral for now appears to be clinically improving. Follow cultures. Follow clinically. d/w Dr. Rodriguez and RN for pt. Claire Guerra MD Jun 27, 2017 14:33
[2017-06-27] MEDS: niCARdipine INJ 25 MG in SODIUM CHLOR 0.9% 250 ML INJ 250 ML IV SCH (14:49)
--- NOTE | 2017-06-27 15:16 | HHI.CCPN ---
Subjective Remarks/Hospital Course 06/15: Acute SAH with a-com aneurysm. Coiled 06/15. 06/16: BP control acceptable. Severe headache, but she gets somnolent after minimal analgesia. Some nausea and vomiting. 06/17: BP control good. Mild permissive hypertension 150s. Persistent headache and anxiety. Patient requests nicoderm patch but I am concerned about promoting unnecessary vasospasm. 06/18: Sudden onset altered mental status. Patient complaining of head ache and turning in bed, somewhat decreased level of consciousness. Transcranial Doppler did not show vasospasm today morning. Continue permissive hypertension. Stat CT of the head and CT angiogram ordered and discussed with interventional radiology Dr. Sanderson. (Dr. Yen in [place]) 06/19: Blood pressure in good range.TCDs today. Start TFs. 06/20: TCD 06/19 showed increase in the degree of vasospasm on the left, and decrease in degree of vasospasm on the right since the prior exam from one day ago. Getting CTA brain today. Remains on vasopressin and Emil-Synephrine to maintain systolic blood pressure 160-180. EVD drained 182 mL in 24 hours, ICP well controlled. UO 7L in 24 hours 06/21: Remains extremely critical. Profound shock, on 4 pressors to maintain SBP >110. On norepinephrine, dopamine, Emil-Synephrine and vasopressin. Unable to obtain target systolic blood pressure more than 160. Patient was started on Zosyn yesterday added vancomycin today. Teixeira cultures sent stress dose hydrocortisone started. Start Ben-trac monitoring. UO >12 L in 24 hours, osmolality studies not consistent with DI joseph though partial DI is possible. Check urine sp gravity and osm again. and Start scheduled DDAVP is suggestive of DI. Family updated in detail 06/22: Overnight developed worsening hypoxemia, refractory to conventional ventilator modes. With PEEP of 12 and FiO2 100% saturation remained in low 80s. Dr. Rodriguez placed on BiLevel (APPV) with improvement in oxygen saturation 90 % and no CO2 retention. I evaluated the patient with bedside ultrasound which showed moderate to large bilateral pleural effusions. Changed mode to PCV to avoid pneumothorax while placing chest tube. After this I placed 10 [place] pigtail catheter on the right side with immediate drainage of total 900 mL clear pleural fluid. Postprocedure oxygen saturation improved to 100% immediately, I was able to reduce the Insp pressure to 30. I will proceed with L pigtail chest tube after CXR confirms no complications 06/23: Remains intubated heavily sedated. Oxygenation improved after bilateral pigtail chest tube placement yesterday. R drained 1.1L and L 0.9L. lowering doses of Levophed and vasopressin. Discontinue vasopressin today 06/24: Heavy sedation limiting neuro exam. Decreasing pressor requirement as patient is maintaining blood pressure. Urine output adequate. Sodium 158 discontinue 3% saline 06/25: Continues to have no evidence of vasospasm. Coming off pressors. Sedation held now. Sodium 155. Overall continues to be positive fluid balance. We'll give IV Bumex 2 mg 1 with potassium replacement and stop all IV fluids. target SBP 140-150 06/26: Patient examined of sedation. White count slightly going up C. difficile positive chest x-ray shows some edema will do repeat dose of Bumex. Systolic blood pressure 140-160 maintained on Cardene infusion 06/27: WBC improving. hemodynamically stable. Remains intubated and critically ill. Urine output excellent with Bumex yesterday. Will give additional dose of Bumex today. Objective Vital Signs Date Time Temp Pulse Resp B/P Pulse Ox O2 Delivery O2 Flow Rate FiO2 06/27/17 12:00 40 06/27/17 12:00 98.5 94 18 145/76 100 06/27/17 07:00 Mechanical Ventilator Intake and Output 06/26/17 06/26/17 06/27/17 08:00 16:00 00:00 Intake Total 616 ml 780 ml 771 ml Output Total 1485 ml 2469 ml 1369 ml Balance -869 ml -1689 ml -598 ml Result Diagram: 06/27/17 1047 06/27/17 1047 Objective Remarks Gen: Sedated, ventilated, middle age woman. Critically ill with persistent encephalopathy Head: Atraumatic. EVD in place, at 10. ICP well controlled Neck: Supple, orally intubated. Lungs: Air entry diminished bilaterally with coarse breath sounds. Bilateral pigtail chest tube with no air leak 695 ml in 24 hours Heart: RRR, no m,r. No JVD. Abdomen: Soft, nondistended, no guarding. BS active. Extremities: Peripheral pulses are palpable Neuro: Pupils are equal reactive. Positive cough and gag. Withdrawal of extremities to pain x4. 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 - Transcranial Doppler showing vasospasm on the left side 06/19/17, stat CTA no significant vasospasm. Since then serial TCD had been neg for vasospasm - CT head on 06/18/17 had shown left frontal vasogenic edema and intraparenchymal hemorrhage, rpt 06/21 unchanged - Systolic blood pressure 140-160 - Resumed Nimotop as BP has improved, at 30 mg po q4. Increased to 60 q4 06/26 - Keep sodium 145-150, keep magnesium more than 2. - Serum osmolality, urine osmolality, urine specific gravity not consistent with DI-may have partial DI CVS: Severe shock/Septic and neurogenic-now resolved Fluid overload - Off all pressors. Target SBP 140-160 - Echo EF 65-70% - Nimodipine resumed, increased to 60 mg by mouth every 8 hours - DCd Ben Trac monitoring - IV Bumex 1mg x1 with KCL replacement repeat dose today RESP: Acute hypoxemic respiratory failure Bilateral pleural effusion HCAP - Intubated for airway protection 06/18/17. PRVC - S/p bilateral pigtail chest tubes with approximately 1 L each removed 06/22/17 , still with high output 700 ml total in 24 hours - DuoNeb every 6 hours and when necessary ventilator bundle. HOB elevated. - No spontaneous breathing trials - Discontinued stress dose steroids 06/26 GI: - Tube feedings, IV Protonix - Having daily bowel movements - C. difficile positive IV Flagyl started : - Sneed for accurate intake output - Electrolyte replacement per protocol - IV Bumex as above ID/HEME: Staph aureus pneumonia C. difficile colitis - IV Flagyl started 06/26 - Continue cefazoline IV per ID - Sputum cx MSSA. blood cx 12/02 Coag neg staph ENDO: Severe hypokalemia Hypomagnesemia - Electrolyte replacement per protocol - Scheduled potassium and magnesium for hypokalemia Proph: - No chemical DVT prophylaxis. Will start Lovenox if cleared by neurosurgery, and repeat CT brain shows resolution of ICH - SCDs. - Protonix. Overall impression: Extensive SAH associated with ACOM aneurysm. She is critically ill, with encephalopathy and respiratory failure. Large amount of blood, elevated risk for vasospasm. Discussed at length with family at the bedside. High Mortality. family understands that patient is very critically ill with guarded prognosis. Critical care 35 mins Tona Rosen MD Jun 27, 2017 15:16 Tona Rosen MD Jun 27, 2017 15:16
[2017-06-27] MEDS ORDERED: BUMETANIDE INJ 1 MG/4 ML VIAL IV PUSH ONE (15:30)
[2017-06-27] MEDS ORDERED: POTASSIUM CHLORIDE 25 MEQ EFFERVESCENT TAB PO ONE (15:30)
[2017-06-27] MEDS: SODIUM CHLORIDE IV SCH (20:57)
[2017-06-27] MEDS: SODIUM CHLORID 0.9% IV SCH (20:57)
[2017-06-27] MEDS: ACETAMINOPHEN/HYDROcodone 325 MG/10 MG TAB PO PRN (21:57)
[2017-06-28] VITALS (18 sets, daily range): BP systolic 124–177; BP diastolic 71–91; PULSE 78–102; RESP 17–22; TEMP 98.5–99.6; O2SAT 99–100
[2017-06-28] MEDS: ceFAZolin 2 GM PREMIX 50 ML IV SCH ×3 (01:21→17:59)
[2017-06-28] MEDS: ACETAMINOPHEN/HYDROcodone 325 MG/10 MG TAB PO PRN ×3 (01:22→11:29)
[2017-06-28] MEDS: niMODipine 30 MG CAP PO SCH ×5 (03:18→19:51)
[2017-06-28] MEDS: CHLORHEXIDINE GLUCONATE 2 % 1 PACK (2 CLOTHS) TOP SCH (03:19)
[2017-06-28] MEDS: metroNIDAZOLE 500 MG INJ 100 ML IV SCH ×3 (03:19→19:50)
[2017-06-28 03:58] LABS: AUTOMATED NEUTROPHIL # 13.6 TH/MM3 (1.8-7.7); BASOPHIL % 0.2 % (0.0-2.0); EOSINOPHIL # 0.6 TH/MM3 (0-0.4); EOSINOPHIL % 3.8 % (0.0-4.0); HEMO FLAGS DIFF FINAL; LYMPHOCYTE # 2.2 TH/MM3 (1.0-4.8); MEAN CELL VOLUME 91.3 FL (80.0-100.0); MEAN CORPUSCULAR HEMOGLOBIN 31.3 PG (27.0-34.0); MEAN CORPUSCULAR HGB CONC 34.3 % (32.0-36.0); MONO % 4.7 % (0.0-8.0); NEUT % 78.3 % (16.0-70.0); PLATELET COUNT 114 TH/MM3 (150-450); RED BLOOD COUNT 3.29 MIL/MM3 (4.00-5.30); RED CELL DISTRIBUTION WIDTH 14.2 % (11.6-17.2); WHITE BLOOD COUNT 17.3 TH/MM3 (4.0-11.0)
[2017-06-28] MEDS: RESP: ALBUTEROL 2.5 MG/IPRATROPIUM 0.5 MG NEB (SCH) NEB ×4 (04:01→19:24)
[2017-06-28 04:19] LABS: ANION GAP 6 MEQ/L (5-15); AST (GOT) 60 U/L (15-37); BICARBONATE 32.4 MEQ/L (21.0-32.0); BLOOD UREA NITROGEN 20 MG/DL (7-18); CHLORIDE 107 MEQ/L (98-107); GLOMERULAR FILTRATION RATE 154 ML/MIN (>89); POTASSIUM 3.2 MEQ/L (3.5-5.1); SODIUM (NA) 145 MEQ/L (136-145)
[2017-06-28 04:22] LABS: ALKALINE PHOSPHATASE 182 U/L (45-117); ALT (GPT) 64 U/L (10-53); TOTAL BILIRUBIN ADULT 0.6 MG/DL (0.2-1.0)
[2017-06-28] MEDS: MAGNESIUM OXIDE 400 MG TAB PO SCH ×3 (05:12→21:34)
[2017-06-28] MEDS: POTASSIUM CHLOR 40 MEQ PREMIX 100 ML IV PRN ×2 (05:37→21:31)
--- NOTE | 2017-06-28 05:39 | RADRPT ---
EXAM DATE/TIME: 06/28/2017 04:35 [facility] COMPARISON: CHEST SINGLE AP, June 26, 2017, 4:20. INDICATIONS : Respiratory disease. MEDICAL HISTORY : Aneurysm, intracranial. Hypertension. SURGICAL HISTORY : None. ENCOUNTER: Subsequent ACUITY: 2 weeks PAIN SCORE: 0/10 LOCATION: Bilateral chest FINDINGS: A single AP semierect view of the chest was obtained and again demonstrates an endotracheal tube in p lace with the tip approximately 3-4 cm above the juarez. A nasogastric tube remains in place. There i s a right internal jugular central venous line tip projected over the superior vena cava. There are n o confluent infiltrates or effusions. The heart size is within normal limits. There are multiple over lying electrocardiogram leads. There is an old mid right clavicle fracture. CONCLUSION: No acute cardiopulmonary disease now identified. The previously noted infiltrates have resolved. Juancarlos England MD on June 28, 2017 at 5:36 Board Certified Radiologist. This report was verified electronically.
[2017-06-28] MEDS: POTASSIUM CHLORIDE 25 MEQ EFFERVESCENT TAB PO SCH ×2 (07:36→19:50)
[2017-06-28] MEDS: levETIRAcetam INJ 500 MG in SODIUM CHLORIDE 0.9% INJ 100 ML IV SCH ×2 (07:36→19:49)
[2017-06-28] MEDS: DOCUSATE SODIUM 50 MG/SENNA 8.6 MG TAB PO SCH ×2 (07:37→21:00)
[2017-06-28] MEDS: BENEPROTEIN POWDER 1 PACK G-TUBE SCH ×3 (07:37→18:00)
[2017-06-28] MEDS: VANCOMYCIN 500 MG VIAL (FOR ORAL USE ONLY) PO SCH ×4 (08:58→21:28)
--- NOTE | 2017-06-28 10:42 | RADRPT ---
EXAM DATE/TIME: 06/28/2017 09:12 [facility] COMPARISON: No previous studies available for comparison. INDICATIONS : Bilateral arm swelling. MEDICAL HISTORY : Hypertension. Arthritis. Subarachnoid hemorrhage. SURGICAL HISTORY : Tubal ligation. Aneurysm coil. ENCOUNTER: Initial ACUITY: 1 week PAIN SCORE: Non-responsive LOCATION: Bilateral arms. FINDINGS: RIGHT UPPER EXTREMITY: There is nonocclusive thrombus within the right cephalic vein. There is spontaneous flow documented i n the brachial, basilic, axillary, and subclavian veins. The vessels are compressible and augmentati on response is documented. No filling defects are seen. The flow is phasic with respiration. Direc tion of flow in the jugular vein is caudal. LEFT UPPER EXTREMITY: There is occlusive thrombus within the left basilic vein. There is spontaneous flow documented in the brachial, cephalic, axillary, and subclavian veins. The vessels are compressible and augmentation r esponse is documented. No filling defects are seen. The flow is phasic with respiration. Direction of flow in the jugular vein is caudal. CONCLUSION: There is thrombus within the left basilic vein and right cephalic vein. Sascha Montez MD on June 28, 2017 at 10:35 Board Certified Radiologist. This report was verified electronically.
--- NOTE | 2017-06-28 11:21 | HHI.NSPN ---
(Gena Nowak) Note Status Status: Progress Note (Gena Nowak) Interval History Interval History 57-year-old female admitted 06/15/17 with acute onset severe headache. 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 06/15/17 endovascular coiling of aneurysm. 06/18/17 patient with increasing confusion, new left frontal interparenchymal hemorrhage with surrounding edema on follow-up CT scan. Patient intubated for airway control. Ventriculostomy placed. 06/20/17: Remains intubated, mechanical ventilation, intravenous sedation. 06/21/17: possible septic shock, on multiple pressors. EVD draining well, bloody CSF, ICP wnl. f/u CTA Head yesterday neg for vasospasm. TCDs this morning pending. Sedation turned off 30 mins ago when rounded, no eye opening, not following commands, no withdrawals to extremities. 06/23/17: pressors being weaned off, s/p chest tube placement for severe pleural effusions. ICPs remains wnl. EVD draining well. Remains sedated. TCD this am. 06/28/17: per nursing report neuro checks improving, patient opening eyes and starting to follow commands. EVD continues to drain well, stable ICPs. (Gena Nowak) Labs, Micro, & Vital Signs Results Date Time Temp Pulse Resp B/P Pulse Ox O2 Delivery O2 Flow Rate FiO2 06/28/17 10:31 99 40 06/28/17 10:31 40 06/28/17 10:00 81 06/28/17 08:00 99.2 102 18 124/77 100 06/28/17 08:00 102 06/28/17 08:00 40 06/28/17 07:00 99 Mechanical Ventilator 40 06/28/17 06:00 93 06/28/17 04:00 96 06/28/17 04:00 99.6 96 17 141/73 100 06/28/17 04:00 40 06/28/17 03:56 100 40 06/28/17 02:00 78 06/28/17 00:27 99 40 06/28/17 00:00 40 06/28/17 00:00 99.6 98 18 135/71 99 06/28/17 00:00 91 06/27/17 22:45 133/62 06/27/17 22:30 140/67 06/27/17 22:15 160/85 06/27/17 22:00 178/87 06/27/17 22:00 98 06/27/17 20:00 83 06/27/17 20:00 40 06/27/17 20:00 99.7 83 17 144/85 100 06/27/17 19:39 100 40 06/27/17 19:00 100 Mechanical Ventilator 40 06/27/17 18:00 83 06/27/17 16:00 100.7 86 18 140/70 100 06/27/17 16:00 40 06/27/17 16:00 87 06/27/17 16:00 78 06/27/17 15:25 99 40 06/27/17 14:00 82 06/27/17 12:00 40 06/27/17 12:00 98.5 94 18 145/76 100 06/27/17 11:34 99 40 06/28/17 07:00 Intake Total 2345 ml Output Total 5312 ml Balance -2967 ml Constitutional Vital Signs Date Time Temp Pulse Resp B/P Pulse Ox O2 Delivery O2 Flow Rate FiO2 06/28/17 10:31 99 40 06/28/17 10:31 40 06/28/17 10:00 81 06/28/17 08:00 99.2 102 18 124/77 100 06/28/17 08:00 102 06/28/17 08:00 40 06/28/17 07:00 99 Mechanical Ventilator 40 06/28/17 06:00 93 06/28/17 04:00 96 06/28/17 04:00 99.6 96 17 141/73 100 06/28/17 04:00 40 06/28/17 03:56 100 40 06/28/17 02:00 78 06/28/17 00:27 99 40 06/28/17 00:00 40 06/28/17 00:00 99.6 98 18 135/71 99 06/28/17 00:00 91 06/27/17 22:45 133/62 7/30/17 22:30 140/67 06/27/17 22:15 160/85 06/27/17 22:00 178/87 06/27/17 22:00 98 06/27/17 20:00 83 06/27/17 20:00 40 06/27/17 20:00 99.7 83 17 144/85 100 06/27/17 19:39 100 40 06/27/17 19:00 100 Mechanical Ventilator 40 06/27/17 18:00 83 06/27/17 16:00 100.7 86 18 140/70 100 06/27/17 16:00 40 06/27/17 16:00 87 06/27/17 16:00 78 06/27/17 15:25 99 40 06/27/17 14:00 82 06/27/17 12:00 40 06/27/17 12:00 98.5 94 18 145/76 100 06/27/17 11:34 99 40 06/28/17 07:00 Intake Total 2345 ml Output Total 5312 ml Balance -2967 ml (Gena Nowak) Review of Systems/Exam Exam Intubated, and sedated, currently pre sales technical engineer obtaining TCD. Ventriculostomy drain at 10 cm H20, draining well. CSF zhang Nursing reports opening eyes and following commands CN: pupils 2 mm equal. Motor: Weak response upper extremities to painful stimulation. No response lower extremities. (Gena Nowak) Exam The patient is intubated and sedated. Localizes to painful stimulus with all 4 extremities. Follows simple commands Cranial Nerves: Pupils equal, round, reactive to light. Eyes appear conjugated. There was no nystagmus, no papilledema. Face musculature appeared symmetrical at rest. Face sensation, olfaction, visual mills, and hearing cannot be adequately assessed due to his neurological condition. The patient has a corneal reflex. He has a gag reflex. The sternocleidomastoid and trapezius are symmetrical. Cervical Spine: His neck is soft, supple, without nuchal rigidity. Motor: His muscle tone and bulk are normal. He moves purposefully all 4 extremities symmetrically. Reflexes: Deep tendon reflexes are 1+ and symmetrical in the biceps, triceps, and brachioradialis, bilaterally, in the upper extremities. In the lower extremities, the patellar and ankles are 1+, bilaterally. There is a bilateral plantar flexion response. There is no clonus or other abnormal reflexes noted. Sensory: On examination there is response to painful stimuli, localizing with both upper and lower extremities. Cerebellar: Examination cannot be adequately assessed due to the patient's neurological condition. (Micah Hoff MD) Medications Current Medications Current Medications Medications (Trade) Dose Ordered Sig/Doris Route PRN Reason Start Time Stop Time Status Last Admin Dose Admin Ondansetron HCl (Zofran Inj) 4 mg Q6H PRN IV NAUSEA OR VOMITING 06/15/17 13:30 06/18/17 13:00 Miscellaneous Information 1 [id number] XX 06/15/17 13:30 Chlorhexidine Gluconate (Chlorhexidine 2% Cloth) Taper DAILY@04 TOP 06/16/17 04:00 06/12/18 03:59 06/26/17 03:28 Chlorhexidine Gluconate (Chlorhexidine 2% Cloth) 3 pack UNSCH PRN TOP HYGIENIC CARE 06/15/17 13:30 Senna/Docusate Sodium (Prabha-Colace) 1 tab BID PO 06/15/17 21:00 06/23/17 21:01 Magnesium Hydroxide (Milk Of Magnesia Liq) 30 ml Q12H PRN PO MILD - MODERATE CONSTIPATION 06/15/17 13:30 Sennosides (Senokot) 17.2 mg Q12H PRN PO MODERATE - SEVERE CONSTIPATION 06/15/17 13:30 Bisacodyl (Dulcolax Supp) 10 mg DAILY PRN RECTAL SEVERE CONSITIPATION 06/15/17 13:30 Lactulose (Lactulose Liq) 30 ml DAILY PRN PO SEVERE CONSITIPATION 06/15/17 13:30 Labetalol HCl 10 mg 10 mg Q1H PRN IV PUSH SBP > 140, DBP > 90 06/15/17 13:30 Levetriacetam/ Sodium Chloride (Keppra Inj/NS Inj) 105 ml @ 420 mls/hr Q12HR IV 06/15/17 21:00 06/28/17 07:36 Terbutaline Sulfate (Brethine Inj) 1 mg UNSCH PRN SQ For Extravasation 06/15/17 18:45 Acetaminophen/ Hydrocodone Bitart 1 tab 1 tab Q4H PRN PO pain 1-5 06/16/17 11:30 06/28/17 05:12 Potassium Chloride 100 ml @ 50 mls/hr Q2H PRN IV For Potassium 2.8 - 3.2 mEq/L 06/18/17 05:30 06/28/17 05:37 Potassium Chloride (KCl 20 Meq Premix Inj) 100 ml @ 50 mls/hr Q2H PRN IV For Potassium 2.8 - 3.2 mEq/L 06/18/17 05:30 Potassium Bicarb/ Potassium Chloride 50 meq 50 meq UNSCH PRN PO For Potassium 3.3 - 3.5 mEq/L 06/18/17 05:30 06/20/17 17:59 Potassium Chloride 100 ml @ 25 mls/hr UNSCH PRN IV For Potassium 3.3 - 3.5 mEq/L 06/18/17 05:30 06/25/17 05:40 Potassium Chloride 100 ml @ 50 mls/hr Q2H PRN IV For Potassium 3.3 - 3.5 mEq/L 06/18/17 05:30 Magnesium Sulfate/ Sodium Chloride (Magnesium Sulfate Inj/NS Inj) 100 ml @ 50 mls/hr UNSCH PRN IV For Magnesium 0.9 - 1.1 mg/dL 06/18/17 05:30 Magnesium Oxide 800 mg 800 mg UNSCH PRN PO For Magnesium 1.2 - 1.6 mg/dL 06/18/17 05:30 Magnesium Sulfate/ Sodium Chloride (Magnesium Sulfate Inj/NS Inj) 100 ml @ 50 mls/hr UNSCH PRN IV For Magnesium 1.2 - 1.6 mg/dL 06/18/17 05:30 06/20/17 18:28 Potassium Phosphate 2000 mg 2,000 mg Q4H PRN PO For Phosphorus < 2.5 mg/dL 06/18/17 05:30 Sodium Phosphate/ Sodium Chloride (Sodium Phosphate Inj/NS 250 ml Inj) 250 ml @ 42 mls/hr UNSCH PRN IV For Phosphorus < 2.5 mg/dL 06/18/17 05:30 06/20/17 18:51 Potassium Phosphate 2000 mg 2,000 mg UNSCH PRN PO/TUBE SEE LABEL COMMENTS 06/18/17 05:30 Potassium Phosphate/Sodium Chloride (Potassium Phosphate Inj/NS 250 ml Inj) 260 ml @ 42 mls/hr UNSCH PRN IV SEE LABEL COMMENTS 06/18/17 05:30 Protein (Beneprotein Powder) 1 pack TID G-TUBE 06/19/17 13:00 06/28/17 07:37 Acetaminophen (Tylenol 650 Mg/ 20 ml Liq) 650 mg Q4H PRN PO Temp > 100.5 06/19/17 12:45 06/26/17 11:37 Terbutaline Sulfate (Brethine Inj) 1 mg UNSCH PRN SQ For Extravasation 06/20/17 17:30 Potassium Bicarb/ Potassium Chloride (K-Lyte Cl Eff) 25 meq Q12HR PO 06/21/17 10:00 06/28/17 07:36 Magnesium Oxide 400 mg 400 mg Q8HR PO 06/21/17 22:00 06/28/17 05:12 Sodium Chloride 176 meq/Sodium Chloride 500 ml @ 30 mls/hr Q16H IV 06/23/17 06:00 06/23/17 21:19 Propofol 100 ml @ 0 mls/hr TITRATE IV 06/24/17 13:45 06/27/17 05:18 Cefazolin Sodium/ Dextrose 50 ml @ 100 mls/hr Q8H IV 06/24/17 18:00 06/28/17 08:58 Nicardipine HCl 25 mg/Sodium Chloride 260 ml @ 0 mls/hr TITRATE IV 06/25/17 18:00 06/27/17 14:49 Metronidazole (Flagyl 500 Mg Inj) 100 ml @ 100 mls/hr Q8H IV 06/26/17 12:00 06/28/17 03:19 Nimodipine (Nimotop) 60 mg Q4HR PO 06/26/17 12:00 06/28/17 07:36 Vancomycin HCl (VANCOMYCIN for oral use only) 250 mg QID PO 06/28/17 09:00 06/28/17 08:58 (Gena Nowak) Medical Decision Making MDM Remarks 57 y/o female with SAH from ruptured ACOM aneurysm s/p endovascular coiling 06/15 s/p placement of right ventriculostomy drain, stable ICPs, CSF appearing less bloody (Gena Nowak) Plan Plan Remarks cont ventriculostomy draining at 10 cm H20, with ICP monitoring, CSF appearing less bloody cont Nimodipine for vasospasm prophylaxis f/u TCD cont critical management IV abx for sepsis dw nursing (Gena Nowak) Plan Remarks impression: Extensive SAH associated with ACOM aneurysm. She is critically ill , with encephalopathy and respiratory failure. (Micah Hoff MD) Attending Statement As above. Continue neuro checks. Nimodipine, ventric, Keppra. Follow up daily TCD's Pulmonary. Cont mechanical ventilation, aggressive pulmonary toilette, nasotracheal suction, and breathing treatments with nebulizers. Status post chest tube. Follow up chest xrays Daily PT and OT Nutrition. Continue Tube feeding Renal. Continue to monitor closely urine output, BUN and creatinine Endocrine. Continue to Monitor serial Acu checks and SSI as needed in detail ID continue to monitor for signs of infection Continue Protonix for stress ulcer prophylaxis Continue Wade hose and SCD's for DVT prophylaxis. Lovenox Discussed with Dr Rosen The exam, history, and the medical decision-making described in the above note were completed with the assistance of the mid-level provider. I reviewed and agree with the findings presented. I attest that I had a [id number] encounter with the patient on the same day, and personally performed and documented my assessment and findings in the medical record. (Micah Hoff MD) Gena Nowak Jun 28, 2017 11:21 Micah Hoff MD Jun 28, 2017 15:41
--- NOTE | 2017-06-28 11:31 | RADRPT ---
EXAM DATE/TIME: 06/28/2017 08:53 [facility] COMPARISON: No previous studies available for comparison. INDICATIONS : Bilateral leg swelling. MEDICAL HISTORY : Hypertension. Arthritis. Subarachnoid hemorrhage. SURGICAL HISTORY : Tubal ligation. Aneurysm coil. ENCOUNTER: Initial ACUITY: 1 week PAIN SCORE: Non-responsive LOCATION: Bilateral legs. TECHNIQUE: Venous ultrasound of the left and right leg was performed from the inguinal ligament to the proximal calf. Real-time, color Doppler and spectral tracing, compression and augmentation techniques were us ed. FINDINGS: RIGHT LEG: There is normal compressibility of the deep venous system from the inguinal region to the proximal ca lf. No echogenic clot is seen in the lumen of the common femoral, femoral, popliteal, and posterior tibial veins. There is a normal response of the venous system to proximal and distal augmentation an d respiration. LEFT LEG: There is normal compressibility of the deep venous system from the inguinal region to the proximal ca lf. No echogenic clot is seen in the lumen of the common femoral, femoral, popliteal, and posterior tibial veins. There is a normal response of the venous system to proximal and distal augmentation an d respiration. CONCLUSION: Normal examination. Sascha Montez MD on June 28, 2017 at 11:29 Board Certified Radiologist. This report was verified electronically.
--- NOTE | 2017-06-28 12:12 | RADRPT ---
EXAM DATE/TIME: 06/28/2017 07:47 [facility] COMPARISON: US TRANSCRANIAL DOPPLER COMPLETE, June 27, 2017, 7:16. INDICATIONS : Subarachnoid hemorrhage. MEDICAL HISTORY : Hypertension. Arthritis. Subarachnoid hemorrhage. SURGICAL HISTORY : Tubal ligation. Aneurysm coil. ENCOUNTER: Sequela ACUITY: 1 week PAIN SCORE: Nonresponsive. LOCATION: Bilateral cranial Current Exam: Jun 28, 2017 [place] Ratio: Right: 1.5 Left: 1.1 [place] Ratio: Right: 1.0 Left: 1.3 Previous Exam: Jun 27, 2017 [place] Ratio: Right: 2.6 Left: 1.8 [place] Ratio: Right: UTO Left: 2.1 FINDINGS: Examination performed at bedside. Real-time ultrasound with the assistance of color and spectral Dop pler was utilized to evaluate the intracerebral circulation. Time-averaged maximal velocities are ca lculated in cm/s. Normal [place] and Fernández ratios. Doppler waveforms are unremarkable. CONCLUSION: 1. No evidence for vasospasm. Brown Schuler MD on June 28, 2017 at 12:10 Board Certified Radiologist. This report was verified electronically.
[2017-06-28] MEDS: SODIUM CHLORIDE IV SCH (13:16)
[2017-06-28] MEDS: SODIUM CHLORID 0.9% IV SCH (13:16)
--- NOTE | 2017-06-28 13:43 | HHI.CCPN ---
Subjective Remarks/Hospital Course 06/15: Acute SAH with a-com aneurysm. Coiled 06/15. 06/16: BP control acceptable. Severe headache, but she gets somnolent after minimal analgesia. Some nausea and vomiting. 06/17: BP control good. Mild permissive hypertension 150s. Persistent headache and anxiety. Patient requests nicoderm patch but I am concerned about promoting unnecessary vasospasm. 06/18: Sudden onset altered mental status. Patient complaining of head ache and turning in bed, somewhat decreased level of consciousness. Transcranial Doppler did not show vasospasm today morning. Continue permissive hypertension. Stat CT of the head and CT angiogram ordered and discussed with interventional radiology Dr. Sanderson. (Dr. Yen in OR) 06/19: Blood pressure in good range.TCDs today. Start TFs. 06/20: TCD 06/19 showed increase in the degree of vasospasm on the left, and decrease in degree of vasospasm on the right since the prior exam from one day ago. Getting CTA brain today. Remains on vasopressin and Emil-Synephrine to maintain systolic blood pressure 160-180. EVD drained 182 mL in 24 hours, ICP well controlled. UO 7L in 24 hours 06/21: Remains extremely critical. Profound shock, on 4 pressors to maintain SBP >110. On norepinephrine, dopamine, Emil-Synephrine and vasopressin. Unable to obtain target systolic blood pressure more than 160. Patient was started on Zosyn yesterday added vancomycin today. Teixeira cultures sent stress dose hydrocortisone started. Start Ben-trac monitoring. UO >12 L in 24 hours, osmolality studies not consistent with DI joseph though partial DI is possible. Check urine sp gravity and osm again. and Start scheduled DDAVP is suggestive of DI. Family updated in detail 06/22: Overnight developed worsening hypoxemia, refractory to conventional ventilator modes. With PEEP of 12 and FiO2 100% saturation remained in low 80s. Dr. Rodriguez placed on BiLevel (APPV) with improvement in oxygen saturation 90 % and no CO2 retention. I evaluated the patient with bedside ultrasound which showed moderate to large bilateral pleural effusions. Changed mode to PCV to avoid pneumothorax while placing chest tube. After this I placed 10 [place]an pigtail catheter on the right side with immediate drainage of total 900 mL clear pleural fluid. Postprocedure oxygen saturation improved to 100% immediately, I was able to reduce the Insp pressure to 30. I will proceed with L pigtail chest tube after CXR confirms no complications 06/23: Remains intubated heavily sedated. Oxygenation improved after bilateral pigtail chest tube placement yesterday. R drained 1.1L and L 0.9L. lowering doses of Levophed and vasopressin. Discontinue vasopressin today 06/24: Heavy sedation limiting neuro exam. Decreasing pressor requirement as patient is maintaining blood pressure. Urine output adequate. Sodium 158 discontinue 3% saline 06/25: Continues to have no evidence of vasospasm. Coming off pressors. Sedation held now. Sodium 155. Overall continues to be positive fluid balance. We'll give IV Bumex 2 mg 1 with potassium replacement and stop all IV fluids. target SBP 140-150 06/26: Patient examined of sedation. White count slightly going up C. difficile positive chest x-ray shows some edema will do repeat dose of Bumex. Systolic blood pressure 140-160 maintained on Cardene infusion 06/27: WBC improving. hemodynamically stable. Remains intubated and critically ill. Urine output excellent with Bumex yesterday. Will give additional dose of Bumex today. 06/27: Improving neuro exam. Today off sedation patient able to follow commands very weakly 4. Cleared for Lovenox by Dr. Hoff. Maintaining systolic blood pressure less than 160 without Cardene Objective Vital Signs Date Time Temp Pulse Resp B/P Pulse Ox O2 Delivery O2 Flow Rate FiO2 06/28/17 13:06 22 06/28/17 12:00 40 06/28/17 12:00 98.5 88 162/78 99 06/28/17 07:00 Mechanical Ventilator Intake and Output 06/27/17 06/27/17 06/28/17 08:00 16:00 00:00 Intake Total 783 ml 683 ml 863 ml Output Total 1107.0 ml 1435 ml 1485 ml Balance -324.0 ml -752 ml -622 ml Result Diagram: 06/28/1732906/28/17329 Objective Remarks Gen: Sedated, ventilated, middle age woman. Critically ill Head: Atraumatic. EVD in place, at 10, CSF clear, 137 ml in 24 hours. ICP well controlled Neck: Supple, orally intubated. Lungs: Air entry diminished bilaterally. Bilateral pigtail chest tube with no air leak 925 ml in 24 hours Heart: RRR, no m,r. No JVD. Abdomen: Soft, nondistended, no guarding. BS active. Extremities: Peripheral pulses are palpable Neuro: Pupils are equal reactive. Positive cough and gag. Very weakly follows commands x4. 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 - Transcranial Doppler showing vasospasm on the left side 06/19/17, stat CTA no significant vasospasm. Since then serial TCD had been neg for vasospasm - CT head on 06/18/17 had shown left frontal vasogenic edema and intraparenchymal hemorrhage, rpt 06/21 unchanged - Systolic blood pressure target 150-160 - Resumed Nimotop as BP has improved, at 60 mg po q4. - Keep sodium 145-150, keep magnesium more than 2. - Serum osmolality, urine osmolality, urine specific gravity not consistent with DI-may have partial DI CVS: Severe shock-now resolved Fluid overload - Off all pressors. Target SBP 150-160 - Echo EF 65-70% - Nimodipine 60 mg by mouth every 4 hours - DCd Ben Trac monitoring - IV Bumex 1mg x1 with KCL replacement repeat dose 06/27 RESP: Acute hypoxemic respiratory failure Bilateral pleural effusion HCAP - Intubated for airway protection 06/18/17. PRVC - S/p bilateral pigtail chest tubes with approximately 1 L each removed 06/22/17 , still with high output 925 ml total in 24 hours - DuoNeb every 6 hours and when necessary ventilator bundle. HOB elevated. - Start spontaneous breathing trials 2-4 hours daily. Mental status will not permit extubation - Discontinued stress dose steroids 06/26 GI: C. difficile colitis - Tube feedings, IV Protonix - Having daily bowel movements - C. difficile positive IV Flagyl started : - Sneed for accurate intake output - Electrolyte replacement per protocol - IV Bumex as above ID/HEME: Staph aureus pneumonia C. difficile colitis - IV Flagyl started 06/26 - Continue cefazolin IV per ID - Sputum cx MSSA. blood cx 12/02 Coag neg staph - Venous scan shows left base leg and right cephalic thrombus. Not a candidate for full anticoagulation. Started on Lovenox 40 mg subcutaneous daily ENDO: Severe hypokalemia Hypomagnesemia - Electrolyte replacement per protocol - Scheduled potassium and magnesium for hypokalemia Proph: - No chemical DVT prophylaxis. Start Lovenox 40 mg sq daily on 06/28/17 - SCDs. - Protonix. Overall impression: Extensive SAH associated with ACOM aneurysm. She is critically ill, with encephalopathy and respiratory failure. Large amount of blood, elevated risk for vasospasm. Discussed at length with family at the bedside. High Mortality. family understands that patient is very critically ill with guarded prognosis. Critical care 35 mins Tona Rosen MD Jun 28, 2017 13:43
[2017-06-28] MEDS: ENOXAPARIN SODIUM 40 MG/0.4 ML SYRINGE SQ SCH (14:10)
[2017-06-28] MEDS: niCARdipine INJ 25 MG in SODIUM CHLOR 0.9% 250 ML INJ 250 ML IV SCH (17:59)
[2017-06-28] MEDS: ACETAMINOPHEN 650 MG/20.3 ML UDC PO PRN (19:04)
--- NOTE | 2017-06-28 19:31 | HHI.IDPN ---
Subjective Subjective Remarks Ms. Nevarez is a 57-year-old female with past medical history significant for hypertension with SAH, acute VDRF,on vent developed MSSA PNA, sp b/l chest tubes has liquid diarrhea, off pressors Tmax 100.6 remains intubated and sedated. ICP pressures in normal range. Antibiotics cefazoline IV Flagyl oral Lines Line sites with no e.o infection. Past Medical History Hypertension Tubal ligation Coiling of the aneurysm this admission. External ventricular device placement. Allergies: Coded Allergies: No Known Allergies (Verified , 02/25/16) Objective . Vital Signs Date Time Temp Pulse Resp B/P Pulse Ox O2 Delivery O2 Flow Rate FiO2 06/28/17 18:00 87 06/28/17 16:28 100 40 06/28/17 16:00 101 06/28/17 16:00 99.4 101 18 169/82 100 06/28/17 16:00 40 06/28/17 14:00 94 06/28/17 13:06 22 06/28/17 12:00 40 06/28/17 12:00 98.5 88 22 162/78 99 06/28/17 12:00 81 06/28/17 10:31 99 40 06/28/17 10:31 40 06/28/17 10:00 81 06/28/17 08:00 99.2 102 18 124/77 100 06/28/17 08:00 102 06/28/17 08:00 40 06/28/17 07:00 99 Mechanical Ventilator 40 06/28/17 06:00 93 06/28/17 04:00 96 06/28/17 04:00 99.6 96 17 141/73 100 06/28/17 04:00 40 06/28/17 03:56 100 40 06/28/17 02:00 78 06/28/17 00:27 99 40 06/28/17 00:00 40 06/28/17 00:00 99.6 98 18 135/71 99 06/28/17 00:00 91 06/27/17 22:45 133/62 06/27/17 22:30 140/67 06/27/17 22:15 160/85 06/27/17 22:00 178/87 06/27/17 22:00 98 06/27/17 20:00 83 06/27/17 20:00 40 06/27/17 20:00 99.7 83 17 144/85 100 06/27/17 19:39 100 40 06/27/17 06/27/17 06/28/17 15:00 23:00 07:00 Intake Total 683 ml 863 ml 799 ml Output Total 1435 ml 1485 ml 2392 ml Balance -752 ml -622 ml -1593 ml IV Total 315 ml 284 ml 394 ml Tube Feeding 368 ml 339 ml 365 ml Tube Irrigant 240 ml 40 ml Output Urine Total 850 ml 700 ml 2100 ml Stool Total 100 ml 400 ml 100 ml Tube Feeding Residual Discard 0 ml Chest Tube Drainage Total 445 ml 330 ml 150 ml Drainage Total 40 ml 55 ml 42 ml . Laboratory Tests Test 06/27/17 06/28/17 10:47 03:30 White Blood Count 16.3 TH/MM3 17.3 TH/MM3 Red Blood Count 3.24 MIL/MM3 3.29 MIL/MM3 Hemoglobin 9.8 GM/DL 10.3 GM/DL Hematocrit 30.0 % 30.0 % Mean Corpuscular Volume 92.7 FL 91.3 FL Mean Corpuscular Hemoglobin 30.2 PG 31.3 PG Mean Corpuscular Hemoglobin 32.6 % 34.3 % Concent Red Cell Distribution Width 14.3 % 14.2 % Platelet Count 106 TH/MM3 114 TH/MM3 Mean Platelet Volume 9.6 FL 10.4 FL Neutrophils (%) (Auto) 82.0 % 78.3 % Lymphocytes (%) (Auto) 9.4 % 13.0 % Monocytes (%) (Auto) 5.7 % 4.7 % Eosinophils (%) (Auto) 2.5 % 3.8 % Basophils (%) (Auto) 0.4 % 0.2 % Neutrophils # (Auto) 13.4 TH/MM3 13.6 TH/MM3 Lymphocytes # (Auto) 1.5 TH/MM3 2.2 TH/MM3 Monocytes # (Auto) 0.9 TH/MM3 0.8 TH/MM3 Eosinophils # (Auto) 0.4 TH/MM3 0.6 TH/MM3 Basophils # (Auto) 0.1 TH/MM3 0.0 TH/MM3 CBC Comment DIFF FINAL DIFF FINAL Differential Comment Laboratory Tests Test 06/26/17 06/27/17 06/27/17 06/28/17 20:00 03:50 10:47 03:30 Potassium Level 2.8 MEQ/L 3.6 MEQ/L 3.7 MEQ/L 3.2 MEQ/L Sodium Level 149 MEQ/L 145 MEQ/L Chloride Level 114 MEQ/L 107 MEQ/L Carbon Dioxide Level 31.8 MEQ/L 32.4 MEQ/L Anion Gap 3 MEQ/L 6 MEQ/L Blood Urea Nitrogen 26 MG/DL 20 MG/DL Creatinine 0.37 MG/DL 0.42 MG/DL Estimat Glomerular Filtration 179 ML/MIN 154 ML/MIN Rate Random Glucose 120 MG/DL 104 MG/DL Calcium Level 8.2 MG/DL 8.4 MG/DL Magnesium Level 2.2 MG/DL 2.0 MG/DL Total Bilirubin 0.8 MG/DL 0.6 MG/DL Aspartate Amino Transf 131 U/L 60 U/L (AST/SGOT) Alanine Aminotransferase 90 U/L 64 U/L (ALT/SGPT) Alkaline Phosphatase 161 U/L 182 U/L Total Protein 5.3 GM/DL 5.2 GM/DL Albumin 3.7 GM/DL 3.5 GM/DL Imaging Last Impressions Chest X-Ray 06/25/17 0600 Signed Impressions: Service Date/Time: Sunday, June 25, 2017 04:53 - CONCLUSION: Increased left greater than right perihilar pulmonary parenchymal opacity likely representing pulmonary edema. Trino Hernandez MD Transcranial Doppler Study Complete 06/25/17 0000 Signed Impressions: Service Date/Time: Sunday, June 25, 2017 07:31 - CONCLUSION: 1. No evidence for vasospasm. Brown Schuler MD Head CT 06/21/17 0000 Signed Impressions: Service Date/Time: Wednesday, June 21, 2017 15:49 - CONCLUSION: Evolving intracranial hemorrhage. Nothing to suggest new hemorrhage. Silas Mtz MD Head CTA 06/20/17 0600 Signed Impressions: Service Date/Time: Tuesday, June 20, 2017 07:52 - CONCLUSION: No evidence for any significant spasm. KJesse Montez MD Neck CTA 06/15/17 1125 Signed Impressions: Service Date/Time: Thursday, June 15, 2017 12:10 - CONCLUSION: 1. No stenosis of either carotid artery. 2. No aneurysm seen. 3. Normal variants of the aortic arch. Pascual Sanderson MD Cerebral Arteriogram 06/15/17 0000 Signed Impressions: Service Date/Time: Thursday, June 15, 2017 13:11 - CONCLUSION: 1. 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 2. No significant vasospasm seen on the left. 3. I spoke with Dr. Yen immediately following the procedure. Emile Walker Jr., MD Physical Exam GENERAL: This is a well-nourished, well-developed patient, in respiratory distress. SKIN: No rashes, ecchymoses or lesions. Cool and dry. HEAD: EVD in place with clear yellow fluid EYES:. No scleral icterus. No injection or drainage. ENT: Nose without bleeding, purulent drainage or septal hematoma. Orally intubated NECK: Trachea midline. Supple, nontender, no meningeal signs. CARDIOVASCULAR: Regular rate and rhythm without murmurs, gallops, or rubs. RESPIRATORY: Clear to auscultation. Breath sounds equal bilaterally. Bilateral chest tubes in place with serous d/c GASTROINTESTINAL: Abdomen soft, non-tender, nondistended. No hepatosplenomegaly Incontinent of liquin brown stool MUSCULOSKELETAL: Extremities without clubbing, cyanosis, + small amount of edema. NEUROLOGICAL: Off sedation with no meaningful response. Agitated Psych could not be assessed IV line sites with no evidence of infection. R IJ in place wo e/o infx Assessment & Plan Remarks Sepsis Aspiration Pneumonia on admission. MSSA Cdiff positive diarrhea Acute resp failure on vent Acute encephalopathy: Acute SAH, metabolic, infection. Acute SAH s/p aneurysm coiling. Staph epi low grade bacteremia, doubt clin significance Critically ill. Simple pleural effusions, not cw empyema Fever: ? non infectious component. r.o DVT Recs: Continue cefazolin IV (will d.w CCM based on procalcitonin and consider stopping Ancef) Continue Flagyl oral for now appears to be clinically improving. Oral vanco for Cdiff. CXR reviewed improved. doppler UE and LE Follow cultures. Follow clinically. d/w RN for pt. Claire Guerra MD Jun 28, 2017 19:31
[2017-06-28 21:12] LABS: BICARBONATE 28.7 MEQ/L (21.0-32.0); POTASSIUM 3.1 MEQ/L (3.5-5.1)
[2017-06-29] VITALS (18 sets, daily range): BP systolic 128–167; BP diastolic 61–85; PULSE 80–113; RESP 19–24; TEMP 98.3–100.6; O2SAT 96–100
[2017-06-29] MEDS: niMODipine 30 MG CAP PO SCH ×7 (01:00→23:17)
[2017-06-29] MEDS: ceFAZolin 2 GM PREMIX 50 ML IV SCH ×2 (01:00→09:12)
[2017-06-29] MEDS: niCARdipine INJ 25 MG in SODIUM CHLOR 0.9% 250 ML INJ 250 ML IV SCH ×4 (01:28→21:13)
[2017-06-29] MEDS: RESP: ALBUTEROL 2.5 MG/IPRATROPIUM 0.5 MG NEB (SCH) NEB ×4 (03:05→19:43)
[2017-06-29] MEDS: metroNIDAZOLE 500 MG INJ 100 ML IV SCH ×3 (03:52→19:55)
[2017-06-29] MEDS: CHLORHEXIDINE GLUCONATE 2 % 1 PACK (2 CLOTHS) TOP SCH (03:53)
[2017-06-29] MEDS: SODIUM CHLORID 0.9% IV SCH (06:00)
[2017-06-29] MEDS: SODIUM CHLORIDE IV SCH (06:00)
[2017-06-29] MEDS: POTASSIUM CHLOR 40 MEQ PREMIX 100 ML IV PRN (06:02)
[2017-06-29] MEDS: MAGNESIUM OXIDE 400 MG TAB PO SCH ×3 (06:02→21:14)
[2017-06-29] MEDS: BENEPROTEIN POWDER 1 PACK G-TUBE SCH ×3 (09:00→17:33)
[2017-06-29] MEDS: DOCUSATE SODIUM 50 MG/SENNA 8.6 MG TAB PO SCH ×2 (09:11→21:00)
[2017-06-29] MEDS: levETIRAcetam INJ 500 MG in SODIUM CHLORIDE 0.9% INJ 100 ML IV SCH (09:11)
[2017-06-29] MEDS: POTASSIUM CHLORIDE 25 MEQ EFFERVESCENT TAB PO SCH ×2 (09:12→19:57)
[2017-06-29] MEDS: VANCOMYCIN 500 MG VIAL (FOR ORAL USE ONLY) PO SCH ×4 (09:12→19:57)
--- NOTE | 2017-06-29 09:24 | HHI.NSPN ---
(Lyle Joaquin) History Chief Complaint: Unable to obtain due to patient's clinical condition. (JemalLyle) Interval History This 57-year-old right-handed female had the acute onset of severe headache early this morning and also complained of weakness in her legs, left more than right, along with paresthesias and subsequently became more lethargic. She was found on the floor by her with positive complaints of nausea. On arrival to the emergency room she was lethargic but responsive. CT scan of the head obtained reveals extensive diffuse subarachnoid hemorrhage involving the basal cisterns and also extending into the bilateral sylvian fissure and interhemispheric fissure and prepontine fissure along with suprasellar cistern. There is also mild hydrocephalus associated with this and slight dilation of the temporal horns bilaterally. 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 The patient is lethargic but does respond to verbal commands and follows simple instructions. 06/16/17: 5x4x3 mm ACOM aneurysm successfully treated with coil embolization on 06/15/17. No significant vasospasm seen involving the left intracranial vasculature per interventional radiology. Pt awakens to voice. Complains of headache all over. Has nausea and had episode of vomiting last night. Pt denies any paresthesias or weakness. She is lethargic and prefers her eyes closed, but awakens to voice. 06/17/17: Pt awake more alert this afternoon. Complains of headache all over. Nausea. Pt was up in chair earlier. Follows commands well. 06/18/17: Pt currently sedated for a STAT CT head that was ordered by critical care. Discussed with critical care and pt was acting restless and more confused but was following commands and gripping hands symmetrically. A follow up CT was obtained which revealed a new left frontal intraparenchymal hemorrhage with surrounding edema. Critical care is going to intubate pt for airway control and Dr. Yen is going to place a ventriculostomy drain. 06/19: Patient remains intubated and mechanically ventilated. She is on propofol 50 mcg/kg/min and midazolam 4 mL/hr for sedation. She has 3% saline infusing. She is on vasopressin at 6 mL/hr for blood pressure support. Nursing reports that she drain 75 mL from the ventriculostomy at 1400. This morning during a sedation vacation the patient did open her eyes to voice. She also reports that the patient's ICP has been running 5 to 8 but will go up to 10 when the ventriculostomy system is clamped or the patient is repositioned. 06/20/17: Remains intubated, mechanical ventilation, intravenous sedation. 06/21/17: possible septic shock, on multiple pressors. EVD draining well, bloody CSF, ICP wnl. f/u CTA Head yesterday neg for vasospasm. TCDs this morning pending. Sedation turned off 30 mins ago when rounded, no eye opening, not following commands, no withdrawals to extremities. 06/22: Patient intubated & mechanically ventilated with midazolam at 6 mL/hr infusing. Patient is being tranfused. Tech at bedside to do TCD when seen and on yesterday's there was no significant vasospasm seen. On multiple vasopressors for blood pressure support. Nursing reports that highest ICP for her was 4 but during the night it did spike to 13 but it went back down quickly. Also that patient is slightly withdrawing. 06/23/17: pressors being weaned off, s/p chest tube placement for severe pleural effusions. ICPs remains wnl. EVD draining well. Remains sedated. TCD this am. 06/24: Patient remains intubated & mechanically ventilated. She is on midazolam & fentanyl drips. A norepinephrine drip is also infusing for blood pressure support. The tech is at the bedside doing the TCD study this morning. 06/25: Patient is intubated but off all sedation at this time. Responsive only to painful stimulation 06/26: Patient remains intubated and sedated now secondary increased respiratory rate. ICPs remain within normal limits. EVD draining xanthochromic fluid. 06/27: Patient remains intubated and sedated. 06/28/17: per nursing report neuro checks improving, patient opening eyes and starting to follow commands. EVD continues to drain well, stable ICPs. 06/29: Patient is intubated and on CPAP when seen. The tech is at the bedside doing the TCD study for today. Yesterday's was without any evidence of vasospasm. The TCD tech reports that the patient is spontaneously moving. Nursing reports that she has been off sedation for 24 hours. (Lyle Joaquin) System Review Comments Unable to obtain due to patient's clinical condition. (Lyle Joaquin) Exam Results Vital Signs Date Time Temp Pulse Resp B/P Pulse Ox O2 Delivery O2 Flow Rate FiO2 06/29/17 08:14 99 Ventilator 40 06/29/17 06:00 80 06/29/17 04:00 99.1 20 166/73 Intake and Output 06/28/17 06/28/17 06/29/17 08:00 16:00 00:00 Intake Total 799 ml 756 ml 1049 ml Output Total 2392 ml 1908 ml 1223 ml Balance -1593 ml -1152 ml -174 ml (Lyle Joaquin) Physical Examination GENERAL: Intubated and on CPAP w/o any sedation. SKIN: Warm, dry & intact, no evident drainage, erythema or streaking from ventriculostomy site. HEENT: Normocephalic, atraumatic, ventriculostomy site intact, orally intubated , OGT. NECK: No JVD, trachea midline. Right IJ central venous catheter. CARDIOVASCULAR: S1S2 w/RRR w/o M/G/R, radial & pedal pulses 2+ bilaterally, cap refill < 2 sec, dependent edema. Monitor is sinus rhythm w/o any ectopy noted. RESPIRATORY: Essentially clear bilaterally, equal excursion, nonlaboured, orally intubated & on CPAP, breathing over set rate. GASTROINTESTINAL: Abdomen soft, positive bowel sounds, OGT w/enteral feeds, FMS in place. MUSCULOSKELETAL: CASTELLANOS to command, TCD tech reports spontaneous movement, no evident deformity or clubbing. NEUROLOGICAL: Partial left eye opening to command, GCS 10T (E3 V1T M6). PERRLA 3 mm brisk. Unable to assess sensation due to mental status. Moves all extremities to command and is able to give a thumbs up with right hand. Ventriculostomy at 10 cm H2O pressure w/yellow CSF draining, ICP range 1 to 8. (Lyle Joaquin) Lab, Micro, Other Results Allergies Coded Allergies Type Severity Reaction Last Updated Verified No Known Allergies 02/25/16 Yes Recent Impressions Chest X-Ray 06/28/17 0600 Signed Impressions: Service Date/Time: Wednesday, June 28, 2017 04:35 - CONCLUSION: No acute cardiopulmonary disease now identified. The previously noted infiltrates have resolved. Juancarlos England MD Upper Extremity Ultrasound 06/28/17 0000 Signed Impressions: Service Date/Time: Wednesday, June 28, 2017 09:12 - CONCLUSION: There is thrombus within the left basilic vein and right cephalic vein. Sascha Montez MD Transcranial Doppler Study Complete 06/28/17 0000 Signed Impressions: Service Date/Time: Wednesday, June 28, 2017 07:47 - CONCLUSION: 1. No evidence for vasospasm. Brown Schuler MD Lower Extremity Ultrasound 06/28/17 0000 Signed Impressions: Service Date/Time: Wednesday, June 28, 2017 08:53 - CONCLUSION: Normal examination. Sascha Montez MD Transcranial Doppler Study Complete 06/27/17 0000 Signed Impressions: Service Date/Time: Tuesday, June 27, 2017 07:16 - CONCLUSION: There is no evidence for vasospasm. Jos eE Méndez MD FACR 06/27////////12/15 06:00 18:00 06:00 18:00 06:00 18:00 Intake Total 1554 ml 683 ml 1662 ml 756 ml 2299 ml Output Total 2476 ml 1435 ml 3877 ml 1908 ml 2270 ml Balance -922 ml -752 ml -2215 ml -1152 ml 29 ml IV Total 921 ml 315 ml 678 ml 446 ml 1404 ml Tube Feeding 473 ml 368 ml 704 ml 90 ml 775 ml Tube Irrigant 280 ml 220 ml 120 ml Other 160 ml Output Urine Total 2025 ml 850 ml 2800 ml 1550 ml 2100 ml Stool Total 100 ml 100 ml 500 ml 200 ml 0 ml Tube Feeding Residual Discard 0 ml 0 ml Chest Tube Drainage Total 270 ml 445 ml 480 ml 100 ml 60 ml Drainage Total 81 ml 40 ml 97 ml 58 ml 110 ml Laboratory Tests Test 7/06/27/17 06/27/17 06/28/17 20:00 03:50 10:47 03:30 Potassium Level 2.8 MEQ/L 3.6 MEQ/L 3.7 MEQ/L 3.2 MEQ/L White Blood Count 16.3 TH/MM3 17.3 TH/MM3 Red Blood Count 3.24 MIL/MM3 3.29 MIL/MM3 Hemoglobin 9.8 GM/DL 10.3 GM/DL Hematocrit 30.0 % 30.0 % Mean Corpuscular Volume 92.7 FL 91.3 FL Mean Corpuscular Hemoglobin 30.2 PG 31.3 PG Mean Corpuscular Hemoglobin 32.6 % 34.3 % Concent Red Cell Distribution Width 14.3 % 14.2 % Platelet Count 106 TH/MM3 114 TH/MM3 Mean Platelet Volume 9.6 FL 10.4 FL Neutrophils (%) (Auto) 82.0 % 78.3 % Lymphocytes (%) (Auto) 9.4 % 13.0 % Monocytes (%) (Auto) 5.7 % 4.7 % Eosinophils (%) (Auto) 2.5 % 3.8 % Basophils (%) (Auto) 0.4 % 0.2 % Neutrophils # (Auto) 13.4 TH/MM3 13.6 TH/MM3 Lymphocytes # (Auto) 1.5 TH/MM3 2.2 TH/MM3 Monocytes # (Auto) 0.9 TH/MM3 0.8 TH/MM3 Eosinophils # (Auto) 0.4 TH/MM3 0.6 TH/MM3 Basophils # (Auto) 0.1 TH/MM3 0.0 TH/MM3 CBC Comment DIFF FINAL DIFF FINAL Differential Comment Sodium Level 149 MEQ/L 145 MEQ/L Chloride Level 114 MEQ/L 107 MEQ/L Carbon Dioxide Level 31.8 MEQ/L 32.4 MEQ/L Anion Gap 3 MEQ/L 6 MEQ/L Blood Urea Nitrogen 26 MG/DL 20 MG/DL Creatinine 0.37 MG/DL 0.42 MG/DL Estimat Glomerular Filtration 179 ML/MIN 154 ML/MIN Rate Random Glucose 120 MG/DL 104 MG/DL Calcium Level 8.2 MG/DL 8.4 MG/DL Magnesium Level 2.2 MG/DL 2.0 MG/DL Total Bilirubin 0.8 MG/DL 0.6 MG/DL Aspartate Amino Transf 131 U/L 60 U/L (AST/SGOT) Alanine Aminotransferase 90 U/L 64 U/L (ALT/SGPT) Alkaline Phosphatase 161 U/L 182 U/L Total Protein 5.3 GM/DL 5.2 GM/DL Albumin 3.7 GM/DL 3.5 GM/DL Test 06/28/17 20:00 Sodium Level 139 MEQ/L Potassium Level 3.1 MEQ/L Chloride Level 101 MEQ/L Carbon Dioxide Level 28.7 MEQ/L Anion Gap 9 MEQ/L Blood Urea Nitrogen 15 MG/DL Creatinine 0.50 MG/DL Estimat Glomerular Filtration 126 ML/MIN Rate Random Glucose 135 MG/DL Calcium Level 8.2 MG/DL Vital Signs Date Time Temp Pulse Resp B/P Pulse Ox O2 Delivery O2 Flow Rate FiO2 06/29/17 08:14 99 Ventilator 40 06/29/17 08:14 96 40 06/29/17 08:14 40 06/29/17 07:00 100 Mechanical Ventilator 40 06/29/17 06:00 80 06/29/17 04:00 40 06/29/17 04:00 99.1 100 20 166/73 100 06/29/17 04:00 100 06/29/17 03:55 100 40 06/29/17 02:00 100 06/29/17 01:18 100 40 06/29/17 00:00 80 06/29/17 00:00 40 06/29/17 00:00 98.8 80 21 128/65 100 06/28/17 22:35 100 40 06/28/17 22:00 98 06/28/17 20:00 99.1 102 18 177/91 100 06/28/17 20:00 40 06/28/17 20:00 102 06/28/17 19:23 100 40 06/28/17 19:00 100 Mechanical Ventilator 40 06/28/17 18:00 87 06/28/17 16:28 100 40 06/28/17 16:00 101 06/28/17 16:00 99.4 101 18 169/82 100 06/28/17 16:00 40 06/28/17 14:00 94 06/28/17 13:06 22 06/28/17 12:00 40 06/28/17 12:00 98.5 88 22 162/78 99 06/28/17 12:00 81 06/28/17 10:31 99 40 06/28/17 10:31 40 06/28/17 10:00 81 06/28/17 08:00 99.2 102 18 124/77 100 06/28/17 08:00 102 06/28/17 08:00 40 06/28/17 07:00 99 Mechanical Ventilator 40 06/28/17 06:00 93 06/28/17 04:00 96 06/28/17 04:00 99.6 96 17 141/73 100 06/28/17 04:00 40 06/28/17 03:56 100 40 06/28/17 02:00 78 06/28/17 00:27 99 40 06/28/17 00:00 40 06/28/17 00:00 99.6 98 18 135/71 99 06/28/17 00:00 91 06/27/17 22:45 133/62 06/27/17 22:30 140/67 06/27/17 22:15 160/85 06/27/17 22:00 178/87 06/27/17 22:00 98 06/27/17 20:00 83 06/27/17 20:00 40 06/27/17 20:00 99.7 83 17 144/85 100 06/27/17 19:39 100 40 06/27/17 19:00 100 Mechanical Ventilator 40 06/27/17 18:00 83 06/27/17 16:00 100.7 86 18 140/70 100 06/27/17 16:00 40 06/27/17 16:00 87 06/27/17 16:00 78 06/27/17 15:25 99 40 06/27/17 14:00 82 06/27/17 12:00 40 06/27/17 12:00 98.5 94 18 145/76 100 06/27/17 11:34 99 40 06/27/17 08:00 40 06/27/17 08:00 99.4 68 16 132/70 100 06/27/17 07:45 100 40 06/27/17 07:45 100 40 06/27/17 07:00 100 Mechanical Ventilator 40 06/27/17 07:00 69 06/27/17 04:39 100 40 06/27/17 04:00 40 06/27/17 04:00 99.2 77 18 121/65 100 06/27/17 00:59 100 40 06/27/17 00:00 99.6 83 17 135/73 100 Arterial Line 06/27/17 00:00 40 06/26/17 23:00 83 06/26/17 21:00 100 Mechanical Ventilator 40 06/26/17 20:13 100 40 06/26/17 20:00 99.0 76 18 136/69 100 06/26/17 20:00 40 06/26/17 20:00 100 Mechanical Ventilator 40 06/26/17 16:00 45 06/26/17 16:00 99.0 79 16 130/68 100 06/26/17 15:17 99 40 06/26/17 15:00 72 06/26/17 13:08 100 100 06/26/17 12:00 100.6 98 21 132/73 100 06/26/17 12:00 50 (Lyle Joaquin) Medical Decision Making Impression and Plan Impression: 1. 57 y/o FM with diffuse subarachnoid hemorrhage involving the basal cisterns as well as the interhemispheric fissure with a mild hydrocephalus from a ruptured anterior communicating artery aneurysm. s/p aneurysm coiling by radiology special procedures. 2. Hypertension. 3. New left frontal intraparenchymal hemorrhage with surrounding edema TCD w/o evidence for vasospasm. CT brain demonstrates minimal persistent subarachnoid blood. Ventriculostomy w/168 mL drainage past 24 hours. Anaemia Leukocytosis Thrombocytopenia Sodium 139 on at 2000 Patient w/improving neuro function. C difficile infection. Plan: Frequent neuro checks. Continue ventriculostomy drain & monitor ICP. Continue nimodipine for vasospasm prophylaxis. Maintain sodium WNL. Target SBP 150-160 mm Hg. Continue critical care management. Antibiotics per Infectious Disease. Will d/c hypertonic saline. (Lyle Joaquin) Attending Statement I have personally seen and examined the patient on the date of this note. Pertinent documentation and study results have been reviewed by the undersigned. I have personally developed the treatment plan and performed medical decision making. Agree with findings, exam, and treatment plan as noted above. Patient much more alert on examination today. She is awake and following commands with all extremities with moderate strength. External ventricular drain increased to 15 cm water. CSF C&S obtained by the undersigned. Continue to challenge ventriculostomy. (Sammy Macias MD) Lyle Joaquin Jun 29, 2017 09:24 Sammy Macias MD Jun 29, 2017 19:37
--- NOTE | 2017-06-29 09:34 | HHI.CCPN ---
Subjective Remarks/Hospital Course 06/15: Acute SAH with a-com aneurysm. Coiled 06/15. 06/16: BP control acceptable. Severe headache, but she gets somnolent after minimal analgesia. Some nausea and vomiting. 06/17: BP control good. Mild permissive hypertension 150s. Persistent headache and anxiety. Patient requests nicoderm patch but I am concerned about promoting unnecessary vasospasm. 06/18: Sudden onset altered mental status. Patient complaining of head ache and turning in bed, somewhat decreased level of consciousness. Transcranial Doppler did not show vasospasm today morning. Continue permissive hypertension. Stat CT of the head and CT angiogram ordered and discussed with interventional radiology Dr. Sanderson. (Dr. Yen in [place]) 06/19: Blood pressure in good range.TCDs today. Start TFs. 06/20: TCD 06/19 showed increase in the degree of vasospasm on the left, and decrease in degree of vasospasm on the right since the prior exam from one day ago. Getting CTA brain today. Remains on vasopressin and Emil-Synephrine to maintain systolic blood pressure 160-180. EVD drained 182 mL in 24 hours, ICP well controlled. UO 7L in 24 hours 06/21: Remains extremely critical. Profound shock, on 4 pressors to maintain SBP >110. On norepinephrine, dopamine, Emil-Synephrine and vasopressin. Unable to obtain target systolic blood pressure more than 160. Patient was started on Zosyn yesterday added vancomycin today. Teixeira cultures sent stress dose hydrocortisone started. Start Ben-trac monitoring. UO >12 L in 24 hours, osmolality studies not consistent with DI joseph though partial DI is possible. Check urine sp gravity and osm again. and Start scheduled DDAVP is suggestive of DI. Family updated in detail 06/22: Overnight developed worsening hypoxemia, refractory to conventional ventilator modes. With PEEP of 12 and FiO2 100% saturation remained in low 80s. Dr. Rodriguez placed on BiLevel (APPV) with improvement in oxygen saturation 90 % and no CO2 retention. I evaluated the patient with bedside ultrasound which showed moderate to large bilateral pleural effusions. Changed mode to PCV to avoid pneumothorax while placing chest tube. After this I placed 10 Italian pigtail catheter on the right side with immediate drainage of total 900 mL clear pleural fluid. Postprocedure oxygen saturation improved to 100% immediately, I was able to reduce the Insp pressure to 30. I will proceed with L pigtail chest tube after CXR confirms no complications 06/23: Remains intubated heavily sedated. Oxygenation improved after bilateral pigtail chest tube placement yesterday. R drained 1.1L and L 0.9L. lowering doses of Levophed and vasopressin. Discontinue vasopressin today 06/24: Heavy sedation limiting neuro exam. Decreasing pressor requirement as patient is maintaining blood pressure. Urine output adequate. Sodium 158 discontinue 3% saline 06/25: Continues to have no evidence of vasospasm. Coming off pressors. Sedation held now. Sodium 155. Overall continues to be positive fluid balance. We'll give IV Bumex 2 mg 1 with potassium replacement and stop all IV fluids. target SBP 140-150 06/26: Patient examined of sedation. White count slightly going up C. difficile positive chest x-ray shows some edema will do repeat dose of Bumex. Systolic blood pressure 140-160 maintained on Cardene infusion 06/27: WBC improving. hemodynamically stable. Remains intubated and critically ill. Urine output excellent with Bumex yesterday. Will give additional dose of Bumex today. 06/28: Improving neuro exam. Today off sedation patient able to follow commands very weakly 4. Cleared for Lovenox by Dr. Hoff. Maintaining systolic blood pressure less than 160 without Cardene Subjective: 06/29 Lethargic but follows commands with all extremities. Temp max 99.1. WBC 17.3 Back on cardene 3 mg/hr. Objective Vital Signs Date Time Temp Pulse Resp B/P Pulse Ox O2 Delivery O2 Flow Rate FiO2 06/29/17 08:14 99 Ventilator 40 06/29/17 06:00 80 06/29/17 04:00 99.1 20 166/73 Intake and Output 06/28/17 06/28/17 06/29/17 08:00 16:00 00:00 Intake Total 799 ml 756 ml 1049 ml Output Total 2392 ml 1908 ml 1223 ml Balance -1593 ml -1152 ml -174 ml Result Diagram: 06/28/17 0330 06/28/171999 Objective Remarks Gen: female who is orotracheally intubated, on Cipro. Head: Atraumatic. EVD in place on Right + 10 cm. ICP well controlled Neck: Supple, orally intubated. Lungs: Air entry diminished bilaterally. Bilateral pigtail chest tube to suction with no air leak. R 90/ L 70 output last 24 hours. Heart: RRR, no m,r. No JVD. Abdomen: Soft, nondistended, no guarding. BS active. Tolerating tube feeds Jevity 1.5 @ 50/hr. : Sneed in place Extremities: Peripheral pulses are palpable Neuro: Pupils are equal reactive. Opens eyes when stimulated. Follows commands by squeezing hands bilaterally and moving feet bilaterally A/P Problem List: (1) SAH (subarachnoid hemorrhage) ICD Code: I60.9 Status: Acute (2) Aneurysm of anterior communicating artery ICD Code: I67.1 Status: Acute (3) Encephalopathy acute ICD Code: G93.40 Status: Acute Assessment and Plan Plan: NEURO Extensive SAH secondary to ruptured ACOM aneurysm Left frontal intraparenchymal hemorrhage, with edema Mild Vasospasm, now resolved Possible partial DI-resolved - 5x4x3 mm ACOM aneurysm successfully treated with coil embolization. - Transcranial Doppler showing vasospasm on the left side 06/19/17, stat CTA no significant vasospasm. Since then serial TCD had been neg for vasospasm - CT head on 06/18/17 had shown left frontal vasogenic edema and intraparenchymal hemorrhage, rpt 06/21 unchanged - Systolic blood pressure target 150-160 - Continue Nimotop at 60 mg po q4. - On Keppra 500 q12, change from IV to po. - Keep sodium normal. Sodium has down trended last 24 hours, add sodium 1 gram per tube tid. CVS: Severe shock-now resolved Fluid overload, improved. - Off all pressors. Target SBP 150-160 - Echo EF 65-70% - Nimodipine 60 mg by mouth every 4 hours. -Back on cardene drip. Add metoprolol 12.5 bid in effort to facilitate weaning. -Received IV Bumex 1mg x1 with KCL replacement repeat dose 06/27 RESP: Acute hypoxemic respiratory failure Bilateral pleural effusion HCAP - Intubated for airway protection 06/18/17. PRVC - Daily SBT trials. Mental status improving but currently is not adequate for extubation. - S/p bilateral pigtail chest tubes with approximately 1 L each removed 06/22/17 , output declined last 24 hours 90 right, [address] right to water seal . I removed L chest tube today. - DuoNeb every 6 hours and when necessary ventilator bundle. HOB elevated. - Discontinued stress dose steroids 06/26 GI: C. difficile colitis - Change to JEvity 1.5 @ 40/hr with beneprotein per nutrition recs. , IV Protonix - Having daily bowel movements - C. difficile positive . On Flagyl IV, vancomycin by mouth. FEN/RENAL: - Sneed for accurate intake output - Electrolyte replacement per protocol ID/HEME: Staph aureus pneumonia C. difficile colitis - IV Flagyl started 06/26 #4. Vancomycin by mouth started 06/28 #2. -Has been on ancef for MSSA pneumonia. Clinically infiltrates resolved and pt tolerating CPAP indicating clinical improvement. In view of this, will watch off abx except those directed toward C diff. (has been on abx with MSSA coverage since 06/20 #10). Reculture as clinically indicated. - Sputum cx MSSA. blood cx 12/02 Coag neg staph - Venous scan shows left base leg and right cephalic thrombus. Not a candidate for full anticoagulation. Started on Lovenox 40 mg subcutaneous daily ENDO: Severe hypokalemia Hypomagnesemia - Electrolyte replacement per protocol - Scheduled potassium and magnesium for hypokalemia Proph: - Lovenox 40 mg sq daily was started on 06/28/17 - SCDs. - Protonix. Overall impression: Extensive SAH associated with ACOM aneurysm, high risk of vasospasm. Mental status appears to be slowly improving but she is lethargic. Hopefully will be able to proceed with extubation soon. Discussed with Dr. David Guerra. Level 3 Milvia Marcus MD Jun 29, 2017 09:34 Milvia Marcus MD Jun 29, 2017 09:34
--- NOTE | 2017-06-29 09:41 | RADRPT ---
EXAM DATE/TIME: 06/29/2017 07:30 [facility] COMPARISON: US TRANSCRANIAL DOPPLER COMPLETE, June 28, 2017, 7:47. INDICATIONS : Subarachnoid hemorrhage. MEDICAL HISTORY : Hypertension. Arthritis. Subarachnoid hemorrhage. SURGICAL HISTORY : Tubal ligation. Aneurysm coil. ENCOUNTER: Sequela ACUITY: 2 weeks PAIN SCORE: Nonresponsive. LOCATION: Bilateral cranial Current Exam: Jun 29, 2017 [place] Ratio: Right: 2.9 Left: 1.0 [place] Ratio: Right: 1.7 Left: 0.8 Previous Exam: Jun 28, 2017 [place] Ratio: Right: 1.5 [place] Ratio: Right: 1.0 Left: 1.3 FINDINGS: Examination performed at bedside. Real-time ultrasound with the assistance of color and spectral Dop pler was utilized to evaluate the intracerebral circulation. Time-averaged maximal velocities are ca lculated in cm/s. All mean flow velocities are within normal limits. CONCLUSION: Examination within normal limits. There are no findings to indicate vasospasm. Silas Ortez MD on June 29, 2017 at 9:37 Board Certified Radiologist. This report was verified electronically.
[2017-06-29] MEDS: ACETAMINOPHEN 650 MG/20.3 ML UDC PO PRN (11:23)
[2017-06-29] MEDS: SODIUM CHLORIDE 1 GRAM TAB OG-TUBE SCH ×2 (11:27→19:54)
[2017-06-29] MEDS: METOPROLOL TARTRATE 25 MG TAB PO SCH ×2 (12:54→20:47)
[2017-06-29] MEDS: ACETAMINOPHEN/HYDROcodone 325 MG/10 MG TAB PO PRN ×2 (12:55→23:17)
[2017-06-29] MEDS: ENOXAPARIN SODIUM 40 MG/0.4 ML SYRINGE SQ SCH (14:43)
--- NOTE | 2017-06-29 17:52 | HHI.IDPN ---
Subjective Subjective Remarks Ms. Nevarez is a 57-year-old female with past medical history significant for hypertension with SAH, acute VDRF,on vent developed MSSA PNA, sp b/l chest tubes has liquid diarrhea, off pressors Tmax 100.6 remains intubated and sedated. ICP pressures in normal range. Overnight events reviewed. No fevers No rash No diarrhea Antibiotics cefazoline IV Flagyl oral Lines Line sites with no e.o infection. Past Medical History Hypertension Tubal ligation Coiling of the aneurysm this admission. External ventricular device placement. Allergies: Coded Allergies: No Known Allergies (Verified , 02/25/16) Objective . Vital Signs Date Time Temp Pulse Resp B/P Pulse Ox O2 Delivery O2 Flow Rate FiO2 06/29/17 16:43 99 40 06/29/17 16:00 109 06/29/17 16:00 40 06/29/17 16:00 99.4 109 22 158/76 100 06/29/17 14:00 110 06/29/17 12:02 100 40 06/29/17 12:00 99.3 86 20 135/61 100 06/29/17 12:00 40 06/29/17 12:00 86 06/29/17 10:00 90 06/29/17 08:14 99 Ventilator 40 06/29/17 08:14 96 40 06/29/17 08:14 40 06/29/17 08:00 100.6 84 24 156/64 100 06/29/17 08:00 40 06/29/17 08:00 86 06/29/17 07:00 100 Mechanical Ventilator 40 06/29/17 06:00 80 06/29/17 04:00 40 06/29/17 04:00 99.1 100 20 166/73 100 06/29/17 04:00 100 06/29/17 03:55 100 40 06/29/17 02:00 100 06/29/17 01:18 100 40 06/29/17 00:00 80 06/29/17 00:00 40 06/29/17 00:00 98.8 80 21 128/65 100 06/28/17 22:35 100 40 06/28/17 22:00 98 06/28/17 20:00 99.1 102 18 177/91 100 06/28/17 20:00 40 06/28/17 20:00 102 06/28/17 19:23 100 40 06/28/17 19:00 100 Mechanical Ventilator 40 06/28/17 18:00 87 06/28/17 06/28/17 06/29/17 15:00 23:00 07:00 Intake Total 756 ml 1049 ml 1250 ml Output Total 1908 ml 1223 ml 1047 ml Balance -1152 ml -174 ml 203 ml IV Total 446 ml 604 ml 800 ml Tube Feeding 90 ml 375 ml 400 ml Tube Irrigant 220 ml 70 ml 50 ml Output Urine Total 1550 ml 1100 ml 1000 ml Stool Total 200 ml 0 ml Chest Tube Drainage Total 100 ml 60 ml Drainage Total 58 ml 63 ml 47 ml . Laboratory Tests Test 06/28/17 03:30 White Blood Count 17.3 TH/MM3 Red Blood Count 3.29 MIL/MM3 Hemoglobin 10.3 GM/DL Hematocrit 30.0 % Mean Corpuscular Volume 91.3 FL Mean Corpuscular Hemoglobin 31.3 PG Mean Corpuscular Hemoglobin 34.3 % Concent Red Cell Distribution Width 14.2 % Platelet Count 114 TH/MM3 Mean Platelet Volume 10.4 FL Neutrophils (%) (Auto) 78.3 % Lymphocytes (%) (Auto) 13.0 % Monocytes (%) (Auto) 4.7 % Eosinophils (%) (Auto) 3.8 % Basophils (%) (Auto) 0.2 % Neutrophils # (Auto) 13.6 TH/MM3 Lymphocytes # (Auto) 2.2 TH/MM3 Monocytes # (Auto) 0.8 TH/MM3 Eosinophils # (Auto) 0.6 TH/MM3 Basophils # (Auto) 0.0 TH/MM3 CBC Comment DIFF FINAL Differential Comment Laboratory Tests Test 06/28/17 06/28/17 06/29/17 03:30 20:00 13:00 Sodium Level 145 MEQ/L 139 MEQ/L Potassium Level 3.2 MEQ/L 3.1 MEQ/L 3.7 MEQ/L Chloride Level 107 MEQ/L 101 MEQ/L Carbon Dioxide Level 32.4 MEQ/L 28.7 MEQ/L Anion Gap 6 MEQ/L 9 MEQ/L Blood Urea Nitrogen 20 MG/DL 15 MG/DL Creatinine 0.42 MG/DL 0.50 MG/DL Estimat Glomerular Filtration 154 ML/MIN 126 ML/MIN Rate Random Glucose 104 MG/DL 135 MG/DL Calcium Level 8.4 MG/DL 8.2 MG/DL Magnesium Level 2.0 MG/DL Total Bilirubin 0.6 MG/DL Aspartate Amino Transf 60 U/L (AST/SGOT) Alanine Aminotransferase 64 U/L (ALT/SGPT) Alkaline Phosphatase 182 U/L Total Protein 5.2 GM/DL Albumin 3.5 GM/DL Procalcitonin 0.25 ng/mL Imaging Last Impressions Chest X-Ray 06/25/17 0600 Signed Impressions: Service Date/Time: Sunday, June 25, 2017 04:53 - CONCLUSION: Increased left greater than right perihilar pulmonary parenchymal opacity likely representing pulmonary edema. Trino Hernandez MD Transcranial Doppler Study Complete 06/25/17 0000 Signed Impressions: Service Date/Time: Sunday, June 25, 2017 07:31 - CONCLUSION: 1. No evidence for vasospasm. Brown Schuler MD Head CT 06/21/17 0000 Signed Impressions: Service Date/Time: Wednesday, June 21, 2017 15:49 - CONCLUSION: Evolving intracranial hemorrhage. Nothing to suggest new hemorrhage. Silas Mtz MD Head CTA 06/20/17 0600 Signed Impressions: Service Date/Time: Tuesday, June 20, 2017 07:52 - CONCLUSION: No evidence for any significant spasm. Sascha Montez MD Neck CTA 06/15/17 1125 Signed Impressions: Service Date/Time: Thursday, June 15, 2017 12:10 - CONCLUSION: 1. No stenosis of either carotid artery. 2. No aneurysm seen. 3. Normal variants of the aortic arch. Pascual Sanderson MD Cerebral Arteriogram 06/15/17 0000 Signed Impressions: Service Date/Time: Thursday, June 15, 2017 13:11 - CONCLUSION: 1. 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 2. No significant vasospasm seen on the left. 3. I spoke with Dr. Yen immediately following the procedure. Emile Walker Jr., MD Physical Exam GENERAL: This is a well-nourished, well-developed patient, in respiratory distress. SKIN: No rashes, ecchymoses or lesions. Cool and dry. HEAD: EVD in place with clear yellow fluid EYES:. No scleral icterus. No injection or drainage. ENT: Nose without bleeding, purulent drainage or septal hematoma. Orally intubated NECK: Trachea midline. Supple, nontender, no meningeal signs. CARDIOVASCULAR: Regular rate and rhythm without murmurs, gallops, or rubs. RESPIRATORY: Clear to auscultation. Breath sounds equal bilaterally. Bilateral chest tubes in place with serous d/c GASTROINTESTINAL: Abdomen soft, non-tender, nondistended. No hepatosplenomegaly Incontinent of liquid brown stool MUSCULOSKELETAL: Extremities without clubbing, cyanosis, + small amount of edema. NEUROLOGICAL: Off sedation with no meaningful response. Agitated Psych could not be assessed IV line sites with no evidence of infection. Assessment & Plan Remarks Sepsis Aspiration Pneumonia on admission. MSSA Cdiff positive diarrhea Acute resp failure on vent Acute encephalopathy: Acute SAH, metabolic, infection. Acute SAH s/p aneurysm coiling. Staph epi low grade bacteremia, doubt clin significance Critically ill. Simple pleural effusions, not cw empyema Fever: ? non infectious component. r.o DVT Recs: DC cefazolin IV Continue Flagyl oral. Oral vanco for Cdiff. Follow cultures. Follow clinically. d/w RN for pt. Claire Guerra MD Jun 29, 2017 17:52
[2017-06-29] MEDS: LABETALOL HCL 100 MG/20 ML VIAL IV PUSH PRN ×2 (18:21→22:24)
[2017-06-29] MEDS: levETIRAcetam 500 MG/5 ML UDC NG SCH (19:56)
[2017-06-30] VITALS (19 sets, daily range): BP systolic 128–177; BP diastolic 62–79; PULSE 68–109; RESP 16–26; TEMP 98.7–100.4; O2SAT 99–100
--- NOTE | 2017-06-30 00:35 | RADRPT ---
EXAM DATE/TIME: 06/30/2017 00:20 [facility] COMPARISON: CHEST SINGLE AP, June 28, 2017, 4:35. INDICATIONS : Interval removal of chest tube. MEDICAL HISTORY : Aneurysm, intracranial. Hypertension. SURGICAL HISTORY : None. ENCOUNTER: Subsequent ACUITY: 1 week PAIN SCORE: 0/10 LOCATION: Bilateral chest FINDINGS: A single AP semierect view of the chest was obtained and again demonstrates endotracheal tube in plac e with the tip approximately 2-3 cm above the juarez. A nasogastric tube is again seen coursing throu gh the esophagus and stomach. The right internal jugular central venous line remains in place. A smal l bore right-sided chest tube is again noted projecting over the right lung base with no pneumothorax . The heart size is within normal limits. There is hazy opacity at the left lung base. There is an ol d healed right midclavicular fracture. CONCLUSION: 1. Right-sided chest tube in place with no pneumothorax. 2. Hazy opacity at the left lung base. Juancarlos England MD on June 30, 2017 at 0:32 Board Certified Radiologist. This report was verified electronically.
[2017-06-30] MEDS: niMODipine 30 MG CAP PO SCH ×5 (03:07→21:58)
[2017-06-30] MEDS: SODIUM CHLORIDE 1 GRAM TAB OG-TUBE SCH ×4 (03:09→21:59)
[2017-06-30] MEDS: metroNIDAZOLE 500 MG INJ 100 ML IV SCH ×3 (03:10→21:58)
[2017-06-30] MEDS: RESP: ALBUTEROL 2.5 MG/IPRATROPIUM 0.5 MG NEB (SCH) NEB ×2 (03:31→09:04)
[2017-06-30] MEDS: CHLORHEXIDINE GLUCONATE 2 % 1 PACK (2 CLOTHS) TOP SCH (04:00)
[2017-06-30] MEDS: ACETAMINOPHEN/HYDROcodone 325 MG/10 MG TAB PO PRN (04:04)
--- NOTE | 2017-06-30 05:12 | RADRPT ---
EXAM DATE/TIME: 06/30/2017 04:23 [facility] COMPARISON: CHEST SINGLE AP, June 30, 2017, 0:20. INDICATIONS : Short of breath. MEDICAL HISTORY : Aneurysm, intracranial. Hypertension. SURGICAL HISTORY : None. ENCOUNTER: Subsequent ACUITY: 2 weeks PAIN SCORE: 0/10 LOCATION: Bilateral chest FINDINGS: A single AP semierect view of the chest was obtained and again demonstrates endotracheal tube in plac e with the tip approximately 3 cm above the juarez. The nasogastric tube and right internal jugular c entral venous line remain in place. There is a small bore right-sided chest tube in place with no pne umothorax. There is patchy opacity remaining at the left lung base with partial obscuration of the le ft hemidiaphragm. The left costophrenic angle appears mildly blunted. The heart size is at the upper limits of normal. CONCLUSION: No significant change. No pneumothorax. Juancarlos England MD on June 30, 2017 at 5:09 Board Certified Radiologist. This report was verified electronically.
[2017-06-30] MEDS: MAGNESIUM OXIDE 400 MG TAB PO SCH ×3 (05:31→21:58)
[2017-06-30] MEDS: niCARdipine INJ 25 MG in SODIUM CHLOR 0.9% 250 ML INJ 250 ML IV SCH (05:33)
[2017-06-30] MEDS: LABETALOL HCL 100 MG/20 ML VIAL IV PUSH PRN ×2 (08:08→17:54)
[2017-06-30] MEDS: VANCOMYCIN 500 MG VIAL (FOR ORAL USE ONLY) PO SCH ×4 (08:18→21:58)
[2017-06-30] MEDS: levETIRAcetam 500 MG/5 ML UDC NG SCH ×2 (08:19→21:58)
[2017-06-30] MEDS: METOPROLOL TARTRATE 25 MG TAB PO SCH ×2 (08:19→21:59)
[2017-06-30] MEDS: POTASSIUM CHLORIDE 25 MEQ EFFERVESCENT TAB PO SCH (08:40)
[2017-06-30] MEDS: BENEPROTEIN POWDER 1 PACK G-TUBE SCH ×3 (09:00→18:00)
[2017-06-30] MEDS: DOCUSATE SODIUM 50 MG/SENNA 8.6 MG TAB PO SCH ×2 (09:00→21:00)
--- NOTE | 2017-06-30 09:01 | RADRPT ---
EXAM DATE/TIME: 06/30/2017 07:45 [facility] COMPARISON: US TRANSCRANIAL DOPPLER COMPLETE, June 29, 2017, 7:30. INDICATIONS : Subarachnoid hemorrhage. MEDICAL HISTORY : Hypertension. Arthritis. Subarachnoid hemorrhage. SURGICAL HISTORY : Tubal ligation. Aneurysm coil. ENCOUNTER: [facility] ACUITY: 2 weeks PAIN SCORE: Nonresponsive. LOCATION: Bilateral cranial Current Exam: Jun 30, 2017 [place] Ratio: Right: 1.1 Left: 1.4 Fernández Ratio: Right: 0.7 Left: 1.3 Previous Exam: Jun 29, 2017 [place] Ratio: Right: 2.9 Left: 1.0 Fernández Ratio: Right: 1.7 Left: 0.8 FINDINGS: Examination performed at bedside. Real-time ultrasound with the assistance of color and spectral Dop pler was utilized to evaluate the intracerebral circulation. Time-averaged maximal velocities are ca lculated in cm/s. The Fernández and Lindegard ratios are within normal limits. CONCLUSION: 1. No evidence for vasospasm. Brown Schuler MD on June 30, 2017 at 8:57 Board Certified Radiologist. This report was verified electronically.
[2017-06-30] MEDS: ACETAMINOPHEN 650 MG/20.3 ML UDC PO PRN ×3 (11:45→23:19)
[2017-06-30 11:50] LABS: BASOPHIL # 0.1 TH/MM3 (0-0.2); BASOPHIL % 0.3 % (0.0-2.0); EOSINOPHIL # 0.3 TH/MM3 (0-0.4); EOSINOPHIL % 1.3 % (0.0-4.0); HEMATOCRIT 26.6 % (35.0-46.0); HEMO FLAGS DIFF FINAL; LYMPH % 4.2 % (9.0-44.0); LYMPHOCYTE # 0.8 TH/MM3 (1.0-4.8); MEAN CELL VOLUME 91.6 FL (80.0-100.0); MEAN CORPUSCULAR HEMOGLOBIN 30.7 PG (27.0-34.0); MEAN CORPUSCULAR HGB CONC 33.6 % (32.0-36.0); MONO % 5.8 % (0.0-8.0); NEUT % 88.4 % (16.0-70.0); PLATELET COUNT 230 TH/MM3 (150-450); RED CELL DISTRIBUTION WIDTH 14.2 % (11.6-17.2); WHITE BLOOD COUNT 19.2 TH/MM3 (4.0-11.0)
[2017-06-30 12:10] LABS: BICARBONATE 29.1 MEQ/L (21.0-32.0); POTASSIUM 3.3 MEQ/L (3.5-5.1)
[2017-06-30] MEDS: POTASSIUM CHLOR 40 MEQ PREMIX 100 ML IV PRN (12:54)
[2017-06-30] MEDS: ENOXAPARIN SODIUM 40 MG/0.4 ML SYRINGE SQ SCH (13:07)
--- NOTE | 2017-06-30 14:50 | HHI.NSPN ---
(Gena Nowak) Note Status Status: Progress Note (Gena Nowak) Interval History Interval History 57-year-old female admitted 06/15/17 with acute onset severe headache. 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 06/15/17 endovascular coiling of aneurysm. 06/18/17 patient with increasing confusion, new left frontal interparenchymal hemorrhage with surrounding edema on follow-up CT scan. Patient intubated for airway control. Ventriculostomy placed. 06/20/17: Remains intubated, mechanical ventilation, intravenous sedation. 06/21/17: possible septic shock, on multiple pressors. EVD draining well, bloody CSF, ICP wnl. f/u CTA Head yesterday neg for vasospasm. TCDs this morning pending. Sedation turned off 30 mins ago when rounded, no eye opening, not following commands, no withdrawals to extremities. 06/23/17: pressors being weaned off, s/p chest tube placement for severe pleural effusions. ICPs remains wnl. EVD draining well. Remains sedated. TCD this am. 06/28/17: per nursing report neuro checks improving, patient opening eyes and starting to follow commands. EVD continues to drain well, stable ICPs. 06/30/17: challenging ventriculostomy drain, CSF is clearing up, (Gena Nowak) Labs, Micro, & Vital Signs Results Date Time Temp Pulse Resp B/P Pulse Ox O2 Delivery O2 Flow Rate FiO2 06/30/17 14:00 82 06/30/17 12:00 40 06/30/17 12:00 76 06/30/17 12:00 100.4 77 20 136/63 100 06/30/17 11:25 99 40 06/30/17 10:00 68 06/30/17 09:04 40 06/30/17 09:04 99 40 06/30/17 08:02 100 40 06/30/17 08:00 99.4 109 22 128/62 100 06/30/17 08:00 40 06/30/17 08:00 70 06/30/17 08:00 100 Mechanical Ventilator 0.55 40 06/30/17 06:00 101 06/30/17 05:04 17 06/30/17 04:22 99 40 06/30/17 04:00 40 06/30/17 04:00 106 06/30/17 04:00 98.7 106 21 167/77 100 06/30/17 02:00 74 06/30/17 01:06 99 40 06/30/17 00:00 98.8 80 16 148/68 100 06/30/17 00:00 80 06/30/17 00:00 40 06/29/17 22:00 102 06/29/17 20:00 98.3 103 19 167/85 100 06/29/17 20:00 40 06/29/17 20:00 103 06/29/17 19:40 100 40 06/29/17 19:00 100 Mechanical Ventilator 40 06/29/17 18:00 113 06/29/17 16:43 99 40 06/29/17 16:00 109 06/29/17 16:00 40 06/29/17 16:00 99.4 109 22 158/76 100 06/30/17 07:00 Intake Total 4408 ml Output Total 2523 ml Balance 1885 ml Constitutional Vital Signs Date Time Temp Pulse Resp B/P Pulse Ox O2 Delivery O2 Flow Rate FiO2 06/30/17 14:00 82 06/30/17 12:00 40 06/30/17 12:00 76 06/30/17 12:00 100.4 77 20 136/63 100 06/30/17 11:25 99 40 06/30/17 10:00 68 06/30/17 09:04 40 06/30/17 09:04 99 40 06/30/17 08:02 100 40 06/30/17 08:00 99.4 109 22 128/62 100 06/30/17 08:00 40 06/30/17 08:00 70 06/30/17 08:00 100 Mechanical Ventilator 0.55 40 06/30/17 06:00 101 06/30/17 05:04 17 06/30/17 04:22 99 40 06/30/17 04:00 40 06/30/17 04:00 106 06/30/17 04:00 98.7 106 21 167/77 100 06/30/17 02:00 74 06/30/17 01:06 99 40 06/30/17 00:00 98.8 80 16 148/68 100 06/30/17 00:00 80 06/30/17 00:00 40 06/29/17 22:00 102 06/29/17 20:00 98.3 103 19 167/85 100 06/29/17 20:00 40 06/29/17 20:00 103 06/29/17 19:40 100 40 06/29/17 19:00 100 Mechanical Ventilator 40 06/29/17 18:00 113 06/29/17 16:43 99 40 06/29/17 16:00 109 06/29/17 16:00 40 06/29/17 16:00 99.4 109 22 158/76 100 06/30/17 07:00 Intake Total 4408 ml Output Total 2523 ml Balance 1885 ml (Gena Nowak) Review of Systems/Exam Exam Off sedation. Nods appropriately. Following simple commands. Ventriculostomy drain at 15 cm H20, draining well. CSF is clearer CN: pupils 2 mm equal. (Gena Nowak) Exam ms Nevarez is intubated and off sedation. CPAP. Open eyes. Tracts. FOllows simple commands. Ventriculostomy in place Cranial Nerves: Pupils equal, round, reactive to light. Eyes appear conjugated. There was no nystagmus, no papilledema. Face musculature appeared symmetrical at rest. Face sensation, olfaction, visual mills, and hearing cannot be adequately assessed due to his neurological condition. The patient has a corneal reflex. He has a gag reflex. The sternocleidomastoid and trapezius are symmetrical. Cervical Spine: His neck is soft, supple, without nuchal rigidity. Motor: His muscle tone and bulk are normal. He moves purposefully all 4 extremities symmetrically. Reflexes: Deep tendon reflexes are 1+ and symmetrical in the biceps, triceps, and brachioradialis, bilaterally, in the upper extremities. In the lower extremities, the patellar and ankles are 1+, bilaterally. There is a bilateral plantar flexion response. There is no clonus or other abnormal reflexes noted. Sensory: On examination there is response to painful stimuli, localizing with both upper and lower extremities. Cerebellar: Examination cannot be adequately assessed due to the patient's neurological condition. (Micah Hoff MD) Medications Current Medications Current Medications Medications (Trade) Dose Ordered Sig/Doris Route PRN Reason Start Time Stop Time Status Last Admin Dose Admin Ondansetron HCl (Zofran Inj) 4 mg Q6H PRN IV NAUSEA OR VOMITING 06/15/17 13:30 06/18/17 13:00 Miscellaneous Information 1 [id number] XX 06/15/17 13:30 Chlorhexidine Gluconate (Chlorhexidine 2% Cloth) Taper DAILY@04 TOP 06/16/17 04:00 06/12/18 03:59 06/26/17 03:28 Chlorhexidine Gluconate (Chlorhexidine 2% Cloth) 3 pack UNSCH PRN TOP HYGIENIC CARE 06/15/17 13:30 Senna/Docusate Sodium (Prabha-Colace) 1 tab BID PO 06/15/17 21:00 06/29/17 09:11 Magnesium Hydroxide (Milk Of Magnesia Liq) 30 ml Q12H PRN PO MILD - MODERATE CONSTIPATION 06/15/17 13:30 Sennosides (Senokot) 17.2 mg Q12H PRN PO MODERATE - SEVERE CONSTIPATION 06/15/17 13:30 Bisacodyl (Dulcolax Supp) 10 mg DAILY PRN RECTAL SEVERE CONSITIPATION 06/15/17 13:30 Lactulose (Lactulose Liq) 30 ml DAILY PRN PO SEVERE CONSITIPATION 06/15/17 13:30 Labetalol HCl (Trandate Inj) 10 mg Q1H PRN IV PUSH SBP > 140, DBP > 90 06/15/17 13:30 06/30/17 08:08 Terbutaline Sulfate (Brethine Inj) 1 mg UNSCH PRN SQ For Extravasation 06/15/17 18:45 Acetaminophen/ Hydrocodone Bitart 1 tab 1 tab Q4H PRN PO pain 1-5 06/16/17 11:30 06/30/17 04:04 Potassium Chloride 100 ml @ 50 mls/hr Q2H PRN IV For Potassium 2.8 - 3.2 mEq/L 06/18/17 05:30 06/29/17 06:02 Potassium Chloride (KCl 20 Meq Premix Inj) 100 ml @ 50 mls/hr Q2H PRN IV For Potassium 2.8 - 3.2 mEq/L 06/18/17 05:30 Potassium Bicarb/ Potassium Chloride 50 meq 50 meq UNSCH PRN PO For Potassium 3.3 - 3.5 mEq/L 06/18/17 05:30 06/20/17 17:59 Potassium Chloride 100 ml @ 25 mls/hr UNSCH PRN IV For Potassium 3.3 - 3.5 mEq/L 06/18/17 05:30 06/30/17 12:54 Potassium Chloride 100 ml @ 50 mls/hr Q2H PRN IV For Potassium 3.3 - 3.5 mEq/L 06/18/17 05:30 Magnesium Sulfate/ Sodium Chloride (Magnesium Sulfate Inj/NS Inj) 100 ml @ 50 mls/hr UNSCH PRN IV For Magnesium 0.9 - 1.1 mg/dL 06/18/17 05:30 Magnesium Oxide 800 mg 800 mg UNSCH PRN PO For Magnesium 1.2 - 1.6 mg/dL 06/18/17 05:30 Magnesium Sulfate/ Sodium Chloride (Magnesium Sulfate Inj/NS Inj) 100 ml @ 50 mls/hr UNSCH PRN IV For Magnesium 1.2 - 1.6 mg/dL 06/18/17 05:30 06/20/17 18:28 Potassium Phosphate 2000 mg 2,000 mg Q4H PRN PO For Phosphorus < 2.5 mg/dL 06/18/17 05:30 Sodium Phosphate/ Sodium Chloride (Sodium Phosphate Inj/NS 250 ml Inj) 250 ml @ 42 mls/hr UNSCH PRN IV For Phosphorus < 2.5 mg/dL 06/18/17 05:30 06/20/17 18:51 Potassium Phosphate 2000 mg 2,000 mg UNSCH PRN PO/TUBE SEE LABEL COMMENTS 06/18/17 05:30 Potassium Phosphate/Sodium Chloride (Potassium Phosphate Inj/NS 250 ml Inj) 260 ml @ 42 mls/hr UNSCH PRN IV SEE LABEL COMMENTS 06/18/17 05:30 Protein (Beneprotein Powder) 1 pack TID G-TUBE 06/19/17 13:00 06/30/17 13:00 Acetaminophen (Tylenol 650 Mg/ 20 ml Liq) 650 mg Q4H PRN PO Temp > 100.5 06/19/17 12:45 06/30/17 11:45 Terbutaline Sulfate (Brethine Inj) 1 mg UNSCH PRN SQ For Extravasation 06/20/17 17:30 Potassium Bicarb/ Potassium Chloride (K-Lyte Cl Eff) 25 meq Q12HR PO 06/21/17 10:00 06/30/17 08:40 Magnesium Oxide 400 mg 400 mg Q8HR PO 06/21/17 22:00 06/30/17 12:54 Propofol 100 ml @ 0 mls/hr TITRATE IV 06/24/17 13:45 06/27/17 05:18 Nicardipine HCl 25 mg/Sodium Chloride 260 ml @ 0 mls/hr TITRATE IV 06/25/17 18:00 06/30/17 05:33 Metronidazole (Flagyl 500 Mg Inj) 100 ml @ 100 mls/hr Q8H IV 06/26/17 12:00 06/30/17 11:20 Nimodipine (Nimotop) 60 mg Q4HR PO 06/26/17 12:00 06/30/17 11:20 Vancomycin HCl (VANCOMYCIN for oral use only) 250 mg QID PO 06/28/17 09:00 06/30/17 12:36 Enoxaparin Sodium (Lovenox Inj) 40 mg Q24H SQ 06/28/17 14:00 06/30/17 13:07 Sodium Chloride (Sodium Chloride) 1 gm Q8H OG-TUBE 06/29/17 11:00 06/30/17 11:20 Levetriacetam (Keppra Liq) 500 mg Q12HR NG 06/29/17 21:00 06/30/17 08:19 Metoprolol Tartrate (Lopressor) 12.5 mg Q12HR PO 06/29/17 13:00 06/30/17 08:19 (Gena Nowak) Medical Decision Making MDM Remarks 57 y/o female with SAH from ruptured ACOM aneurysm s/p endovascular coiling 06/15 s/p placement of right ventriculostomy drain, stable ICPs, CSF appearing less bloody, challenging ventriculostomy drain (Gena Nowak) Plan Plan Remarks raise EVD to 20 cm H20, cont current care cont therapy cont serial neuro checks (Gena Nowak) Attending Statement Continue neuro checks. Nimodipine, Keppra. Challenging ventriculostomy. Follow up daily TCD's Pulmonary. Cont mechanical ventilation, aggressive pulmonary toilette, nasotracheal suction, and breathing treatments with nebulizers. Status post chest tube. Follow up chest xrays Daily PT and OT Nutrition. tube feedings Renal. Continue to monitor closely urine output, BUN and creatinine Endocrine. Continue to Monitor serial Acu checks and SSI as needed in detail ID Cdiff positive. Continue antibiotics. Continue Protonix for stress ulcer prophylaxis Continue Wade hose and SCD's for DVT prophylaxis. Lovenox The exam, history, and the medical decision-making described in the above note were completed with the assistance of the mid-level provider. I reviewed and agree with the findings presented. I attest that I had a [id number] encounter with the patient on the same day, and personally performed and documented my assessment and findings in the medical record. (Micah Hoff MD) Gena Nowak Jun 30, 2017 14:50 Micah Hoff MD Jul 06, 2017 11:35
--- NOTE | 2017-06-30 16:22 | HHI.CCPN ---
Subjective Remarks/Hospital Course 06/15: Acute SAH with a-com aneurysm. Coiled 06/15. 06/16: BP control acceptable. Severe headache, but she gets somnolent after minimal analgesia. Some nausea and vomiting. 06/17: BP control good. Mild permissive hypertension 150s. Persistent headache and anxiety. Patient requests nicoderm patch but I am concerned about promoting unnecessary vasospasm. 06/18: Sudden onset altered mental status. Patient complaining of head ache and turning in bed, somewhat decreased level of consciousness. Transcranial Doppler did not show vasospasm today morning. Continue permissive hypertension. Stat CT of the head and CT angiogram ordered and discussed with interventional radiology Dr. Sanderson. (Dr. Yen in [place]) 06/19: Blood pressure in good range.TCDs today. Start TFs. 06/20: TCD 06/19 showed increase in the degree of vasospasm on the left, and decrease in degree of vasospasm on the right since the prior exam from one day ago. Getting CTA brain today. Remains on vasopressin and Emil-Synephrine to maintain systolic blood pressure 160-180. EVD drained 182 mL in 24 hours, ICP well controlled. UO 7L in 24 hours 06/21: Remains extremely critical. Profound shock, on 4 pressors to maintain SBP >110. On norepinephrine, dopamine, Emil-Synephrine and vasopressin. Unable to obtain target systolic blood pressure more than 160. Patient was started on Zosyn yesterday added vancomycin today. Teixeira cultures sent stress dose hydrocortisone started. Start Ben-trac monitoring. UO >12 L in 24 hours, osmolality studies not consistent with DI joseph though partial DI is possible. Check urine sp gravity and osm again. and Start scheduled DDAVP is suggestive of DI. Family updated in detail 06/22: Overnight developed worsening hypoxemia, refractory to conventional ventilator modes. With PEEP of 12 and FiO2 100% saturation remained in low 80s. Dr. Rodriguez placed on BiLevel (APPV) with improvement in oxygen saturation 90 % and no CO2 retention. I evaluated the patient with bedside ultrasound which showed moderate to large bilateral pleural effusions. Changed mode to PCV to avoid pneumothorax while placing chest tube. After this I placed 10 [place] pigtail catheter on the right side with immediate drainage of total 900 mL clear pleural fluid. Postprocedure oxygen saturation improved to 100% immediately, I was able to reduce the Insp pressure to 30. I will proceed with L pigtail chest tube after CXR confirms no complications 06/23: Remains intubated heavily sedated. Oxygenation improved after bilateral pigtail chest tube placement yesterday. R drained 1.1L and L 0.9L. lowering doses of Levophed and vasopressin. Discontinue vasopressin today 06/24: Heavy sedation limiting neuro exam. Decreasing pressor requirement as patient is maintaining blood pressure. Urine output adequate. Sodium 158 discontinue 3% saline 06/25: Continues to have no evidence of vasospasm. Coming off pressors. Sedation held now. Sodium 155. Overall continues to be positive fluid balance. We'll give IV Bumex 2 mg 1 with potassium replacement and stop all IV fluids. target SBP 140-150 06/26: Patient examined of sedation. White count slightly going up C. difficile positive chest x-ray shows some edema will do repeat dose of Bumex. Systolic blood pressure 140-160 maintained on Cardene infusion 06/27: WBC improving. hemodynamically stable. Remains intubated and critically ill. Urine output excellent with Bumex yesterday. Will give additional dose of Bumex today. 06/28: Improving neuro exam. Today off sedation patient able to follow commands very weakly 4. Cleared for Lovenox by Dr. Hoff. Maintaining systolic blood pressure less than 160 without Cardene 06/29 Lethargic but follows commands with all extremities. Temp max 99.1. WBC 17.3 Back on cardene 3 mg/hr. Subjective: 06/30 NSG challenging EVD to 20 cm. Perera was replaced earlier today due to occlusion. Now temp 101. CSF culture from 06/29 NGTD. Cultured blood and urine. On flagyl/vanc for C diff. Off cardene. She tolerated CPAP 15/5 all day yesterday. Tolerating 10/5, adjust to 5/5 now. She follows commands and is more consistent with following commands today than yesterday so seems to be improving. Still with eyes primarily shut but will open and track when stimulated. TCD today neg for vasospasm Objective Vital Signs Date Time Temp Pulse Resp B/P Pulse Ox O2 Delivery O2 Flow Rate FiO2 06/30/17 15:28 100 40 06/30/17 14:00 82 06/30/17 12:00 100.4 20 136/63 06/30/17 08:00 Mechanical Ventilator 0.55 Intake and Output 06/29/17 06/29/17 06/29/17 07:59 15:59 23:59 Intake Total 1250 ml 1416 ml 1667 ml Output Total 1047 ml 1325 ml 565 ml Balance 203 ml 91 ml 1102 ml Result Diagram: 06/30/17 1130 06/30/17 1130 Objective Remarks Gen: female who is orotracheally intubated, on CPAP. Head: Atraumatic. EVD in place on Right + 20 cm. ICP well controlled Neck: Supple, orally intubated. Lungs: Air entry diminished bilaterally. Bilateral pigtail chest tube to suction with no air leak, output 35 mL. L chest tube removed yesterday. Heart: RRR, no m,r. No JVD. Abdomen: Soft, nondistended, no guarding. BS active. Tolerating tube feeds Jevity 1.5 @ 50/hr. : Perera in place Extremities: Peripheral pulses are palpable Neuro: Pupils are equal reactive. Opens eyes when stimulated and tracks. 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 - Transcranial Doppler showing vasospasm on the left side 06/19/17, stat CTA no significant vasospasm. Since then serial TCD had been neg for vasospasm - CT head on 06/18/17 had shown left frontal vasogenic edema and intraparenchymal hemorrhage, rpt 06/21 unchanged - Systolic blood pressure target 150-160 - Continue Nimotop at 60 mg po q4. - On Keppra 500 q12, change from IV to po. - Keep sodium normal. Sodium has down trended last 24 hours, increase sodium 1 gram per tube qid CVS: Severe shock-now resolved Fluid overload, improved. - Off all pressors. Target SBP 150-160 - Echo EF 65-70% - Nimodipine 60 mg by mouth every 4 hours. -Cardene drip off. Continue metoprolol 12.5 bid -Received IV Bumex 1mg x1 with KCL replacement. Bumex 0.5 mg IV today x1. Additional KCL 40 per tube. RESP: Acute hypoxemic respiratory failure Bilateral pleural effusion HCAP - Intubated for airway protection 06/18/17. PRVC - Daily SBT trials. Mental status improving and appears will be amenable to trial of extubation soon. Discussed with Dr. Hoff. - S/p bilateral pigtail chest tubes with approximately 1 L each removed 06/22/17 , output declined L chest tube removed 06/29. Will remove R chest tube today. - DuoNeb every 6 hours and when necessary ventilator bundle. HOB elevated. - Discontinued stress dose steroids 06/26 GI: C. difficile colitis - Change to JEvity 1.5 @ 40/hr with beneprotein per nutrition recs. , IV Protonix - Having daily bowel movements - C. difficile positive . On Flagyl IV, vancomycin by mouth. FEN/RENAL: - Perera for accurate intake output - Electrolyte replacement per protocol ID/HEME: Staph aureus pneumonia C. difficile colitis - IV Flagyl started 06/26 #5. Vancomycin by mouth started 06/28 #3. -Has been on ancef for MSSA pneumonia. Clinically infiltrates resolved and pt tolerating CPAP indicating clinical improvement. In view of this, watching off abx except those directed toward C diff. (has been on abx with MSSA coverage since 06/20 #10). Today temp 101.2 so reculturing. In view of overall clinical stability and the presence of C diff, will not broaden abx at this point and will await culture data. Of note, perera was also occluded and was replaced today. - Sputum cx MSSA. blood cx 12/02 Coag neg staph - Venous scan shows left basilic and right cephalic thrombus. Not a candidate for full anticoagulation. Continue on Lovenox 40 mg subcutaneous daily ENDO: Severe hypokalemia Hypomagnesemia - Electrolyte replacement per protocol - Scheduled potassium and magnesium for hypokalemia Proph: - Lovenox 40 mg sq daily was started on 06/28/17 - SCDs. - Protonix. ACCESS: Right IJ central venous line placed 06/18 #13. Central line is no longer needed. Will ask vascular access team to please ultrasound-guided peripheral in right upper extremity in effort to avoid right cephalic nonocclusive thrombus. Overall impression: Extensive SAH associated with ACOM aneurysm, Mental status appears to be slowly improving and appears she will be amenable to trial of extubation soon. Discussed with Dr. David Guerra and Dr. Hoff Level 3 Milvia Marcus MD Jun 30, 2017 16:22
[2017-06-30] MEDS ORDERED: POTASSIUM CHLORIDE 25 MEQ EFFERVESCENT TAB PO ONE (16:30)
[2017-06-30 16:54] LABS: BACTERIA, URINE FEW /hpf; BLOOD, URINE NEG (NEG); COMMENT (UR) CATH-CULTURE IND; CULTURE IF INDICATED CATH CULTURE IND; GLUCOSE,URINE NEG (NEG); KETONE, URINE NEG (NEG); MUCUS URINE FEW /lpf (OCC); NITRITE,URINE NEG (NEG); PH, URINE 6.5 (5.0-8.5); URINE COLOR YELLOW (YELLW/STRAW)
--- NOTE | 2017-06-30 20:52 | RADRPT ---
EXAM DATE/TIME: 06/30/2017 20:01 [facility] COMPARISON: CHEST SINGLE AP, June 30, 2017, 4:23. INDICATIONS : Chest tube removal. MEDICAL HISTORY : Hypertension. SURGICAL HISTORY : None. ENCOUNTER: Initial ACUITY: 1 day PAIN SCORE: Non-responsive. LOCATION: Bilateral chest FINDINGS: Interval removal of right chest catheter. No evidence of pneumothorax. Endotracheal tube tip well a alex the juarez. Right internal jugular catheter tip projects at the distal superior vena cava. Gas tric tube tip projects within the stomach. Persisting consolidation left lower lobe with loss of the left hemidiaphragm. The right lung is clear. CONCLUSION: Removal right chest catheter. No evidence of pneumothorax. Emile Malhotra MD on June 30, 2017 at 20:49 Board Certified Radiologist. This report was verified electronically.
[2017-07-01] VITALS (19 sets, daily range): BP systolic 137–186; BP diastolic 67–87; PULSE 86–109; RESP 16–35; TEMP 99.7–101.1; O2SAT 96–100
[2017-07-01] MEDS: POTASSIUM CHLORIDE 25 MEQ EFFERVESCENT TAB PO SCH ×3 (00:28→20:21)
[2017-07-01] MEDS: niMODipine 30 MG CAP PO SCH ×7 (00:28→23:18)
[2017-07-01] MEDS: LABETALOL HCL 100 MG/20 ML VIAL IV PUSH PRN (00:29)
[2017-07-01 03:48] LABS: AUTOMATED NEUTROPHIL # 13.2 TH/MM3 (1.8-7.7); BASOPHIL # 0.1 TH/MM3 (0-0.2); BASOPHIL % 0.4 % (0.0-2.0); EOSINOPHIL # 0.3 TH/MM3 (0-0.4); EOSINOPHIL % 1.7 % (0.0-4.0); HEMO FLAGS DIFF FINAL; LYMPH % 6.1 % (9.0-44.0); LYMPHOCYTE # 0.9 TH/MM3 (1.0-4.8); MEAN CELL VOLUME 91.1 FL (80.0-100.0); MEAN CORPUSCULAR HEMOGLOBIN 31.3 PG (27.0-34.0); MEAN CORPUSCULAR HGB CONC 34.4 % (32.0-36.0); MONO % 6.8 % (0.0-8.0); PLATELET COUNT 261 TH/MM3 (150-450); RED BLOOD COUNT 2.74 MIL/MM3 (4.00-5.30); RED CELL DISTRIBUTION WIDTH 14.5 % (11.6-17.2); WHITE BLOOD COUNT 15.6 TH/MM3 (4.0-11.0)
[2017-07-01] MEDS: CHLORHEXIDINE GLUCONATE 2 % 1 PACK (2 CLOTHS) TOP SCH (04:00)
[2017-07-01 04:17] LABS: BICARBONATE 30.2 MEQ/L (21.0-32.0); POTASSIUM 3.7 MEQ/L (3.5-5.1)
[2017-07-01] MEDS: metroNIDAZOLE 500 MG INJ 100 ML IV SCH ×3 (04:31→20:20)
[2017-07-01] MEDS: SODIUM CHLORIDE 1 GRAM TAB OG-TUBE SCH ×4 (04:31→23:18)
[2017-07-01] MEDS: MAGNESIUM OXIDE 400 MG TAB PO SCH ×4 (06:28→20:22)
[2017-07-01] MEDS: BENEPROTEIN POWDER 1 PACK G-TUBE SCH ×3 (09:00→17:11)
[2017-07-01] MEDS: DOCUSATE SODIUM 50 MG/SENNA 8.6 MG TAB PO SCH ×2 (09:00→20:22)
[2017-07-01] MEDS ORDERED: BUMETANIDE INJ 1 MG/4 ML VIAL IV PUSH ONE (09:30)
[2017-07-01] MEDS ORDERED: niCARdipine INJ 25 MG in SODIUM CHLOR 0.9% 250 ML INJ 250 ML IV SCH (09:45)
[2017-07-01] MEDS ORDERED: hydrALAZINE HCL 20 MG/ML VIAL IV PUSH PRN (09:45)
[2017-07-01] MEDS ORDERED: PILL SPLITTER OTHER PRN (09:45)
--- NOTE | 2017-07-01 09:49 | HHI.NSPN ---
History Chief Complaint: Unable to obtain due to patient's clinical condition. Interval History This 57-year-old right-handed female had the acute onset of severe headache early this morning and also complained of weakness in her legs, left more than right, along with paresthesias and subsequently became more lethargic. She was found on the floor by her with positive complaints of nausea. On arrival to the emergency room she was lethargic but responsive. CT scan of the head obtained reveals extensive diffuse subarachnoid hemorrhage involving the basal cisterns and also extending into the bilateral sylvian fissure and interhemispheric fissure and prepontine fissure along with suprasellar cistern. There is also mild hydrocephalus associated with this and slight dilation of the temporal horns bilaterally. 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 The patient is lethargic but does respond to verbal commands and follows simple instructions. 06/16/17: 5x4x3 mm ACOM aneurysm successfully treated with coil embolization on 06/15/17. No significant vasospasm seen involving the left intracranial vasculature per interventional radiology. Pt awakens to voice. Complains of headache all over. Has nausea and had episode of vomiting last night. Pt denies any paresthesias or weakness. She is lethargic and prefers her eyes closed, but awakens to voice. 06/17/17: Pt awake more alert this afternoon. Complains of headache all over. Nausea. Pt was up in chair earlier. Follows commands well. 06/18/17: Pt currently sedated for a STAT CT head that was ordered by critical care. Discussed with critical care and pt was acting restless and more confused but was following commands and gripping hands symmetrically. A follow up CT was obtained which revealed a new left frontal intraparenchymal hemorrhage with surrounding edema. Critical care is going to intubate pt for airway control and Dr. Yen is going to place a ventriculostomy drain. 06/19: Patient remains intubated and mechanically ventilated. She is on propofol 50 mcg/kg/min and midazolam 4 mL/hr for sedation. She has 3% saline infusing. She is on vasopressin at 6 mL/hr for blood pressure support. Nursing reports that she drain 75 mL from the ventriculostomy at 1400. This morning during a sedation vacation the patient did open her eyes to voice. She also reports that the patient's ICP has been running 5 to 8 but will go up to 10 when the ventriculostomy system is clamped or the patient is repositioned. 06/20/17: Remains intubated, mechanical ventilation, intravenous sedation. 06/21/17: possible septic shock, on multiple pressors. EVD draining well, bloody CSF, ICP wnl. f/u CTA Head yesterday neg for vasospasm. TCDs this morning pending. Sedation turned off 30 mins ago when rounded, no eye opening, not following commands, no withdrawals to extremities. 06/22: Patient intubated & mechanically ventilated with midazolam at 6 mL/hr infusing. Patient is being tranfused. Tech at bedside to do TCD when seen and on yesterday's there was no significant vasospasm seen. On multiple vasopressors for blood pressure support. Nursing reports that highest ICP for her was 4 but during the night it did spike to 13 but it went back down quickly. Also that patient is slightly withdrawing. 06/23/17: pressors being weaned off, s/p chest tube placement for severe pleural effusions. ICPs remains wnl. EVD draining well. Remains sedated. TCD this am. 06/24: Patient remains intubated & mechanically ventilated. She is on midazolam & fentanyl drips. A norepinephrine drip is also infusing for blood pressure support. The tech is at the bedside doing the TCD study this morning. 06/25: Patient is intubated but off all sedation at this time. Responsive only to painful stimulation 06/26: Patient remains intubated and sedated now secondary increased respiratory rate. ICPs remain within normal limits. EVD draining xanthochromic fluid. 06/27: Patient remains intubated and sedated. 06/28/17: per nursing report neuro checks improving, patient opening eyes and starting to follow commands. EVD continues to drain well, stable ICPs. 06/29: Patient is intubated and on CPAP when seen. The tech is at the bedside doing the TCD study for today. Yesterday's was without any evidence of vasospasm. The TCD tech reports that the patient is spontaneously moving. Nursing reports that she has been off sedation for 24 hours. 06/30/17: challenging ventriculostomy drain, CSF is clearing up, 07/01: Patient remains intubated and on CPAP. Her ventriculostomy drain was being challenged yesterday and placed at 20 cm H2O pressure. Nursing reports that she is following commands but not consistently. The [facility] would like to trach the patient if she is not able to maintain her airway since she is showing improved neurological function. The family is hesitant to do so based upon the patient's living will without knowing what her prognosis is. System Review Comments Unable to obtain due to patient's clinical condition. Exam Results Vital Signs Date Time Temp Pulse Resp B/P Pulse Ox O2 Delivery O2 Flow Rate FiO2 07/01/17 07:40 100 40 07/01/17 06:00 98 07/01/17 04:00 100.4 16 186/87 06/30/17 08:00 Mechanical Ventilator 0.55 Intake and Output 06/30/17 06/30/17 06/30/17 07:59 15:59 23:59 Intake Total 1325 ml 1531 ml 697 ml Output Total 633 ml 2200 ml 912 ml Balance 692 ml -669 ml -215 ml Physical Examination GENERAL: Intubated and on CPAP w/o any sedation. SKIN: Warm, dry & intact, no evident drainage, erythema or streaking from ventriculostomy site. HEENT: Normocephalic, atraumatic, ventriculostomy site intact, orally intubated , OGT. NECK: No JVD, trachea midline. Right IJ central venous catheter. CARDIOVASCULAR: S1S2 w/regular but fast rate w/o M/G/R, radial & pedal pulses 2 + bilaterally, cap refill < 2 sec, dependent edema. Monitor is sinus tachycardia w/o any ectopy noted. RESPIRATORY: Essentially clear bilaterally, equal excursion, nonlaboured, orally intubated & on CPAP, breathing over set rate. GASTROINTESTINAL: Abdomen soft, positive bowel sounds, OGT w/enteral feeds, FMS in place. MUSCULOSKELETAL: CASTELLANOS to command, some spontaneous movement, no evident deformity or clubbing. NEUROLOGICAL: Opens both eyes to command, GCS 10T (E3 V1T M6). PERRLA 3 mm brisk, EOMI, tracks. Unable to assess sensation due to mental status. Moves all extremities to command and is able to give a thumbs up with right hand. Ventriculostomy at 20 cm H2O pressure w/yellow CSF draining, ICP 10 or less per Nursing. Lab, Micro, Other Results Allergies Coded Allergies Type Severity Reaction Last Updated Verified No Known Allergies 02/25/16 Yes Recent Impressions Chest X-Ray 06/30/17 2300 Signed Impressions: Service Date/Time: Friday, June 30, 2017 00:20 - CONCLUSION: 1. Right-sided chest tube in place with no pneumothorax. 2. Hazy opacity at the left lung base. Juancarlos England MD Chest X-Ray 06/30/171999 Signed Impressions: Service Date/Time: Friday, June 30, 2017 20:01 - CONCLUSION: Removal right chest catheter. No evidence of pneumothorax. Emile Malhotra MD Transcranial Doppler Study Complete 06/30/17 0000 Signed Impressions: Service Date/Time: Friday, June 30, 2017 07:45 - CONCLUSION: 1. No evidence for vasospasm. Brown Schuler MD Chest X-Ray 06/30/17 0000 Signed Impressions: Service Date/Time: Friday, June 30, 2017 04:23 - CONCLUSION: No significant change. No pneumothorax. Juancarlos England MD Transcranial Doppler Study Complete 06/29/17 0000 Signed Impressions: Service Date/Time: Thursday, June 29, 2017 07:30 - CONCLUSION: Examination within normal limits. There are no findings to indicate vasospasm. Silas rOtez MD ////// 05:59 17:59 05:59 17:59 05:59 17:59 Intake Total 1049 ml 2666 ml 1667 ml 2856 ml 697 ml 769 ml Output Total 1223 ml 2372 ml 565 ml 2833 ml 912 ml 1750 ml Balance -174 ml 294 ml 1102 ml 23 ml -215 ml -981 ml Intake Oral 500 ml IV Total 604 ml 1813 ml 880 ml 1459 ml 237 ml 386 ml Tube Feeding 375 ml 803 ml 307 ml 777 ml 400 ml 323 ml Tube Irrigant 70 ml 50 ml 60 ml 60 ml Other 480 ml 120 ml Output Urine Total 1100 ml 1950 ml 350 ml 2700 ml 900 ml 1750 ml Stool Total 300 ml 200 ml 75 ml 0 ml 0 ml Chest Tube Drainage Total 60 ml 45 ml 0 ml 0 ml Drainage Total 63 ml 77 ml 15 ml 58 ml 12 ml Laboratory Tests Test 06/28/17 06/29/17 06/30/17 06/30/17 20:00 13:00 11:30 15:20 Sodium Level 139 MEQ/L 138 MEQ/L Potassium Level 3.1 MEQ/L 3.7 MEQ/L 3.3 MEQ/L Chloride Level 101 MEQ/L 102 MEQ/L Carbon Dioxide Level 28.7 MEQ/L 29.1 MEQ/L Anion Gap 9 MEQ/L 7 MEQ/L Blood Urea Nitrogen 15 MG/DL 16 MG/DL Creatinine 0.50 MG/DL 0.26 MG/DL Estimat Glomerular Filtration 126 ML/MIN 269 ML/MIN Rate Random Glucose 135 MG/DL 123 MG/DL Calcium Level 8.2 MG/DL 8.2 MG/DL White Blood Count 19.2 TH/MM3 Red Blood Count 2.90 MIL/MM3 Hemoglobin 8.9 GM/DL Hematocrit 26.6 % Mean Corpuscular Volume 91.6 FL Mean Corpuscular Hemoglobin 30.7 PG Mean Corpuscular Hemoglobin 33.6 % Concent Red Cell Distribution Width 14.2 % Platelet Count 230 TH/MM3 Mean Platelet Volume 8.5 FL Neutrophils (%) (Auto) 88.4 % Lymphocytes (%) (Auto) 4.2 % Monocytes (%) (Auto) 5.8 % Eosinophils (%) (Auto) 1.3 % Basophils (%) (Auto) 0.3 % Neutrophils # (Auto) 17.0 TH/MM3 Lymphocytes # (Auto) 0.8 TH/MM3 Monocytes # (Auto) 1.1 TH/MM3 Eosinophils # (Auto) 0.3 TH/MM3 Basophils # (Auto) 0.1 TH/MM3 CBC Comment DIFF FINAL Differential Comment Urine Color YELLOW Urine Turbidity CLEAR Urine pH 6.5 Urine Specific [place] 1.021 Urine Protein TRACE mg/dL Urine Glucose (UA) NEG mg/dL Urine Ketones NEG mg/dL Urine Occult Blood NEG Urine Nitrite NEG Urine Bilirubin NEG Urine Urobilinogen LESS THAN 2.0 MG/DL Urine Leukocyte Esterase SMALL Urine RBC 3 /hpf Urine WBC 14 /hpf Urine WBC Clumps RARE Urine Bacteria FEW /hpf Urine Mucus FEW /lpf Microscopic Urinalysis Comment CATH-CULTURE IND Test 07/01/17 03:35 White Blood Count 15.6 TH/MM3 Red Blood Count 2.74 MIL/MM3 Hemoglobin 8.6 GM/DL Hematocrit 25.0 % Mean Corpuscular Volume 91.1 FL Mean Corpuscular Hemoglobin 31.3 PG Mean Corpuscular Hemoglobin 34.4 % Concent Red Cell Distribution Width 14.5 % Platelet Count 261 TH/MM3 Mean Platelet Volume 9.3 FL Neutrophils (%) (Auto) 85.0 % Lymphocytes (%) (Auto) 6.1 % Monocytes (%) (Auto) 6.8 % Eosinophils (%) (Auto) 1.7 % Basophils (%) (Auto) 0.4 % Neutrophils # (Auto) 13.2 TH/MM3 Lymphocytes # (Auto) 0.9 TH/MM3 Monocytes # (Auto) 1.1 TH/MM3 Eosinophils # (Auto) 0.3 TH/MM3 Basophils # (Auto) 0.1 TH/MM3 CBC Comment DIFF FINAL Differential Comment Sodium Level 138 MEQ/L Potassium Level 3.7 MEQ/L Chloride Level 102 MEQ/L Carbon Dioxide Level 30.2 MEQ/L Anion Gap 6 MEQ/L Blood Urea Nitrogen 14 MG/DL Creatinine 0.28 MG/DL Estimat Glomerular Filtration 247 ML/MIN Rate Random Glucose 102 MG/DL Calcium Level 8.3 MG/DL Vital Signs Date Time Temp Pulse Resp B/P Pulse Ox O2 Delivery O2 Flow Rate FiO2 07/01/17 07:40 100 40 07/01/17 07:40 40 07/01/17 06:00 98 07/01/17 04:24 100 40 07/01/17 04:00 100.4 86 16 186/87 100 07/01/17 04:00 86 07/01/17 04:00 40 07/01/17 02:00 99 07/01/17 01:03 100 40 07/01/17 00:00 101.1 102 21 164/75 100 07/01/17 00:00 102 07/01/17 00:00 40 06/30/17 22:00 98 06/30/17 20:00 90 06/30/17 20:00 100.0 90 18 177/76 100 06/30/17 20:00 40 06/30/17 19:49 100 40 06/30/17 18:00 90 06/30/17 16:00 40 06/30/17 16:00 100.4 85 26 159/79 100 06/30/17 16:00 86 06/30/17 15:28 100 40 06/30/17 14:00 82 06/30/17 12:00 40 06/30/17 12:00 76 06/30/17 12:00 100.4 77 20 136/63 100 06/30/17 11:25 99 40 06/30/17 10:00 68 06/30/17 09:04 40 06/30/17 09:04 99 40 06/30/17 08:02 100 40 06/30/17 08:00 99.4 109 22 128/62 100 06/30/17 08:00 40 06/30/17 08:00 70 06/30/17 08:00 100 Mechanical Ventilator 0.55 40 06/30/17 06:00 101 06/30/17 05:04 17 06/30/17 04:22 99 40 06/30/17 04:00 40 06/30/17 04:00 106 06/30/17 04:00 98.7 106 21 167/77 100 06/30/17 02:00 74 06/30/17 01:06 99 40 06/30/17 00:00 98.8 80 16 148/68 100 06/30/17 00:00 80 06/30/17 00:00 40 06/29/17 22:00 102 06/29/17 20:00 98.3 103 19 167/85 100 06/29/17 20:00 40 06/29/17 20:00 103 06/29/17 19:40 100 40 06/29/17 19:00 100 Mechanical Ventilator 40 06/29/17 18:00 113 06/29/17 16:43 99 40 06/29/17 16:00 109 06/29/17 16:00 40 06/29/17 16:00 99.4 109 22 158/76 100 06/29/17 14:00 110 06/29/17 12:02 100 40 06/29/17 12:00 99.3 86 20 135/61 100 06/29/17 12:00 40 06/29/17 12:00 86 06/29/17 10:00 90 06/29/17 08:14 99 Ventilator 40 06/29/17 08:14 96 40 06/29/17 08:14 40 06/29/17 08:00 100.6 84 24 156/64 100 06/29/17 08:00 40 06/29/17 08:00 86 06/29/17 07:00 100 Mechanical Ventilator 40 06/29/17 06:00 80 06/29/17 04:00 40 06/29/17 04:00 99.1 100 20 166/73 100 06/29/17 04:00 100 06/29/17 03:55 100 40 06/29/17 02:00 100 06/29/17 01:18 100 40 06/29/17 00:00 80 06/29/17 00:00 40 06/29/17 00:00 98.8 80 21 128/65 100 06/28/17 22:35 100 40 06/28/17 22:00 98 06/28/17 20:00 99.1 102 18 177/91 100 06/28/17 20:00 40 06/28/17 20:00 102 06/28/17 19:23 100 40 06/28/17 19:00 100 Mechanical Ventilator 40 06/28/17 18:00 87 06/28/17 16:28 100 40 06/28/17 16:00 101 06/28/17 16:00 99.4 101 18 169/82 100 06/28/17 16:00 40 06/28/17 14:00 94 06/28/17 12:00 40 06/28/17 12:00 98.5 88 22 162/78 99 06/28/17 12:00 81 06/28/17 10:31 99 40 06/28/17 10:31 40 06/28/17 10:00 81 Medical Decision Making Impression and Plan Impression: 1. 57 y/o FM with diffuse subarachnoid hemorrhage involving the basal cisterns as well as the interhemispheric fissure with a mild hydrocephalus from a ruptured anterior communicating artery aneurysm. s/p aneurysm coiling by radiology special procedures. 2. Hypertension. 3. New left frontal intraparenchymal hemorrhage with surrounding edema TCD w/o evidence for vasospasm. CT brain demonstrates minimal persistent subarachnoid blood. Ventriculostomy w/37 mL drainage past 24 hours. Anaemia, essentially stable Leukocytosis, improved Thrombocytopenia, resolved Sodium 138 today Patient w/slowly improving neuro function. C difficile infection. Plan: Frequent neuro checks. Clamp ventriculostomy drain now and repeat CT brain in AM. Continue nimodipine for vasospasm prophylaxis. Maintain sodium WNL. Target SBP 150-160 mm Hg. Continue critical care management. Concur with plan to try to extubate and reintubate if unable to support airway then trach since showing neurological improvement. Antibiotics per Infectious Disease. Lyle Joaquin [facility] Jul 01, 2017 09:49
[2017-07-01] MEDS: VANCOMYCIN 500 MG VIAL (FOR ORAL USE ONLY) PO SCH ×4 (09:51→20:21)
[2017-07-01] MEDS: levETIRAcetam 500 MG/5 ML UDC NG SCH ×2 (09:52→20:21)
[2017-07-01] MEDS: ACETAMINOPHEN 650 MG/20.3 ML UDC PO PRN ×3 (09:52→23:18)
--- NOTE | 2017-07-01 09:56 | HHI.CCPN ---
Subjective Remarks/Hospital Course 06/15: Acute SAH with a-com aneurysm. Coiled 06/15. 06/16: BP control acceptable. Severe headache, but she gets somnolent after minimal analgesia. Some nausea and vomiting. 06/17: BP control good. Mild permissive hypertension 150s. Persistent headache and anxiety. Patient requests nicoderm patch but I am concerned about promoting unnecessary vasospasm. 06/18: Sudden onset altered mental status. Patient complaining of head ache and turning in bed, somewhat decreased level of consciousness. Transcranial Doppler did not show vasospasm today morning. Continue permissive hypertension. Stat CT of the head and CT angiogram ordered and discussed with interventional radiology Dr. Sanderson. (Dr. Yen in [place]) 06/19: Blood pressure in good range.TCDs today. Start TFs. 06/20: TCD 06/19 showed increase in the degree of vasospasm on the left, and decrease in degree of vasospasm on the right since the prior exam from one day ago. Getting CTA brain today. Remains on vasopressin and Emil-Synephrine to maintain systolic blood pressure 160-180. EVD drained 182 mL in 24 hours, ICP well controlled. UO 7L in 24 hours 06/21: Remains extremely critical. Profound shock, on 4 pressors to maintain SBP >110. On norepinephrine, dopamine, Emil-Synephrine and vasopressin. Unable to obtain target systolic blood pressure more than 160. Patient was started on Zosyn yesterday added vancomycin today. Teixeira cultures sent stress dose hydrocortisone started. Start Ben-trac monitoring. UO >12 L in 24 hours, osmolality studies not consistent with DI joseph though partial DI is possible. Check urine sp gravity and osm again. and Start scheduled DDAVP is suggestive of DI. Family updated in detail 06/22: Overnight developed worsening hypoxemia, refractory to conventional ventilator modes. With PEEP of 12 and FiO2 100% saturation remained in low 80s. Dr. Rodriguez placed on BiLevel (APPV) with improvement in oxygen saturation 90 % and no CO2 retention. I evaluated the patient with bedside ultrasound which showed moderate to large bilateral pleural effusions. Changed mode to PCV to avoid pneumothorax while placing chest tube. After this I placed 10 [place] pigtail catheter on the right side with immediate drainage of total 900 mL clear pleural fluid. Postprocedure oxygen saturation improved to 100% immediately, I was able to reduce the Insp pressure to 30. I will proceed with L pigtail chest tube after CXR confirms no complications 06/23: Remains intubated heavily sedated. Oxygenation improved after bilateral pigtail chest tube placement yesterday. R drained 1.1L and L 0.9L. lowering doses of Levophed and vasopressin. Discontinue vasopressin today 06/24: Heavy sedation limiting neuro exam. Decreasing pressor requirement as patient is maintaining blood pressure. Urine output adequate. Sodium 158 discontinue 3% saline 06/25: Continues to have no evidence of vasospasm. Coming off pressors. Sedation held now. Sodium 155. Overall continues to be positive fluid balance. We'll give IV Bumex 2 mg 1 with potassium replacement and stop all IV fluids. target SBP 140-150 06/26: Patient examined of sedation. White count slightly going up C. difficile positive chest x-ray shows some edema will do repeat dose of Bumex. Systolic blood pressure 140-160 maintained on Cardene infusion 06/27: WBC improving. hemodynamically stable. Remains intubated and critically ill. Urine output excellent with Bumex yesterday. Will give additional dose of Bumex today. 06/28: Improving neuro exam. Today off sedation patient able to follow commands very weakly 4. Cleared for Lovenox by Dr. Hoff. Maintaining systolic blood pressure less than 160 without Cardene 06/29 Lethargic but follows commands with all extremities. Temp max 99.1. WBC 17.3 Back on cardene 3 mg/hr. 06/30 NSG challenging EVD to 20 cm. Sneed was replaced earlier today due to occlusion. Now temp 101. CSF culture from 06/29 NGTD. Cultured blood and urine. On flagyl/vanc for C diff. Off cardene. She tolerated CPAP 15/5 all day yesterday. Tolerating 10/5, adjust to 5/5 now. She follows commands and is more consistent with following commands today than yesterday so seems to be improving. Still with eyes primarily shut but will open and track when stimulated. TCD neg for vasospasm Subjective: 07/01 Continues to make neurologic improvement. More alert today with spontaneous eye opening, tracking, nodding to questions. Following commands by moving all extremities. Tolerated CPAP 5/5 for two hours yesterday. Placing on CPAP. Temp max 101.1. NSG clamping ventric. Objective Vital Signs Date Time Temp Pulse Resp B/P Pulse Ox O2 Delivery O2 Flow Rate FiO2 07/01/17 07:40 100 40 07/01/17 06:00 98 07/01/17 04:00 100.4 16 186/87 06/30/17 08:00 Mechanical Ventilator 0.55 Intake and Output 06/30/17 06/30/17 07/01/17 08:00 16:00 00:00 Intake Total 1325 ml 1531 ml 697 ml Output Total 633 ml 2200 ml 912 ml Balance 692 ml -669 ml -215 ml Result Diagram: 07/01/17 0335 07/01/17 0335 Objective Remarks Gen: female who is orotracheally intubated, on CPAP. SKIN: Ecchymosis overlying left lateral thigh. Head: Atraumatic. EVD in place on Right + 20 cm, fluid noncloudy. ICP well controlled, NSG Neck: Supple, orally intubated. Lungs: Air entry diminished bibasilar. No wheezes or rales. Heart: tachycardic, regular, sinus tach on monitor 110s. No JVD. Abdomen: Soft, nondistended, no guarding. BS active. Tolerating tube feeds Jevity 1.5 @ 50/hr. Dignishield in place with soft brown stool, 75 recorded. : Sneed in place with yellow urine output. Extremities: Peripheral pulses are palpable. No significant peripheral edema. Neuro: Pupils are equal reactive. Opens eyes spontaneously, tracks, nods to questions, + facial grimace. Spontaneously moving all extremities. 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 - Transcranial Doppler c/w vasospasm on the left side 06/19/17, stat CTA 06/20 no significant vasospasm. Since then serial TCD had been neg for vasospasm - CT head on 06/18/17 had shown left frontal vasogenic edema and intraparenchymal hemorrhage, rpt 06/21 unchanged - Systolic blood pressure target 140-160 - Continue Nimotop at 60 mg po q4. - On Keppra 500 q12 per tube. - Keep sodium normal. Continue sodium 1 gram tab per tube qid -Ventric clamp 07/01 per NSG CVS: Severe shock-now resolved Fluid overload, improved. - Off all pressors. - Echo EF 65-70% - Nimodipine 60 mg by mouth every 4 hours. -Off and on Cardene drip. Increase metoprolol 12.5 q8 hours. Labetalol/ hydralazine prn SBP >160. -Bumex 0.5 mg IV today x1. KCL 25 per tube bid. Give additional KCl 25 x1 RESP: Acute hypoxemic respiratory failure Bilateral pleural effusion HCAP - Intubated for airway protection 06/18/17. PRVC - Daily SBT trials. Mental status improving and appears will be amenable to trial of extubation today. Discussed with family and with neurosurgery Kavya and Colleen (Colleen covering today) . agrees to reintubation and trach if she fails extubation. - S/p bilateral pigtail chest tubes with approximately 1 L each removed 06/22/17 , output declined L chest tube removed 06/29. R chest tube removed 06/30. -CXR today with L lower lobe opacity that looks worse compared with xray from last night. In view of fevers this is concerning for development of pneumonia. Will broaden antimicrobial coverage. I still think risk/benefit favors proceeding with trial of extubation given that she is tolerating CPAP trials, mental status appropriate, adequate cough. She is mechanical ventilation day # 14 and if she fails extubation she will likely require trach. - DuoNeb every 6 hours and when necessary ventilator bundle. HOB elevated. - Discontinued stress dose steroids 06/26 GI: C. difficile diarrhea - Was JEvity 1.5 @ 40/hr with beneprotein per nutrition recs. , IV Protonix -Speech eval, NGT for nutrition if necessary. - Dignishield in place. - C. difficile positive . On Flagyl IV, vancomycin by mouth. FEN/RENAL: Severe hypokalemia, resolved. Hypomagnesemia, resolved - Sneed for accurate intake output. Sneed was replaced 06/30 due to obstruction. - Electrolyte replacement per protocol. Check phos today and replace if indicated. ID/HEME: Staph aureus pneumonia C. difficile diarrhea - IV Flagyl started 06/26 #6. Vancomycin by mouth started 06/28 #4. -Has been on ancef for MSSA pneumonia. Clinically infiltrates had resolved and pt tolerating CPAP indicating clinical improvement. In view of this, watching off abx except those directed toward C diff. (had been on abx with MSSA coverage 06/20-06/29 #10). Having intermittent fevers and so ordered panculture 06/30. [place] may be central fevers vs superficial thrombophlebitis so, in view of clinical stability, have held off on restarting abx so as not to exacerbate C diff. However, now with fever 101 and new LLL infiltrate concerning for VAP. Discussed with Dr. Ascencion Guerra and she started on Cefepime and Vancomycin. Delay in treating pneumonia could sabotage efforts at liberation from mechanical ventilation so benefit of abx outweighs risk. CSF culture from 06/29 negative to date. Procalcitonin 0.25 on 06/28, repeat today to assess likelihood of infection. - Venous scan shows left basilic and right cephalic thrombus. Not a candidate for full anticoagulation. Continue on Lovenox 40 mg subcutaneous daily ENDO: Euglycemic Proph: - Lovenox 40 mg sq daily was started on 06/28/17 - SCDs. - Protonix 40 mg IV daily for stress ulcer prophylaxis. ACCESS: Right IJ central venous line placed 06/18 #15. Central line is no longer needed. Consulte vascular access team to place ultrasound-guided peripheral in right upper extremity with effort to avoid right cephalic nonocclusive thrombus. D/c CVL Overall impression: Extensive SAH associated with ACOM aneurysm, Mental status appears to be slowly improving and appears she is amenable for trial of extubation. Family is concerned that her living will states she would not want prolonged life support. I reassured them that she is making slow neurologic improvement and that she can continue to improve neurologically. Explained that she is of course at risk for setback (infectious complication/VTE, for example) but at this point would recommend extubation with reintubation and trach if needed to allow patient more time for recovery. Reassured she may be transitioned to comfort measures at a later point if she is getting worse or if not recovering to satisfactory quality of life. family wished to speak with NSG. Discussed with Dr. Hoff who covered patient yesterday and he updated family. Dr. Macias is covering today. Dr. Hoff and Dr. Macias also discussed possibility of neurologic recovery and support ongoing supportive care and trach. Discussed with RT and RN. Level 3 Milvia Marcus MD Jul 01, 2017 09:56
--- NOTE | 2017-07-01 10:46 | RADRPT ---
EXAM DATE/TIME: 07/01/2017 10:05 [facility] COMPARISON: CHEST SINGLE AP, June 30, 2017, 20:01. INDICATIONS : Respiratory failure. MEDICAL HISTORY : Hypertension. SURGICAL HISTORY : None. ENCOUNTER: Subsequent ACUITY: 2 days PAIN SCORE: Non-responsive. LOCATION: Bilateral chest FINDINGS: A single view of the chest demonstrates endotracheal tube in satisfactory position. Right central guillermo e in superior vena cava. NG coiled in the stomach. Bilateral mostly basilar airspace disease and left perihilar airspace disease has increased from June 2. CONCLUSION: 1. Increased left perihilar and basilar airspace disease since June 2. Probable small effusions. En dotracheal tube, nasogastric tube and right central line in satisfactory position. No pneumothorax. Poncho Aguilera MD on July 01, 2017 at 10:42 Board Certified Radiologist. This report was verified electronically.
[2017-07-01] MEDS: NYSTATIN 100,000 UNIT/GM CREAM 15 GM TOPICAL SCH ×2 (11:00→20:22)
[2017-07-01] MEDS ORDERED: Vancomycin Consult Pharmacy 1 EA OTHER SCH (12:00)
--- NOTE | 2017-07-01 12:04 | HHI.IDPN ---
Subjective Subjective Remarks Ms. Nevarez is a 57-year-old female with past medical history significant for hypertension with SAH, acute VDRF,on vent developed MSSA PNA, sp b/l chest tubes has liquid diarrhea, off pressors Tmax 100.6 remains intubated and sedated. ICP pressures in normal range. Overnight events reviewed. Persistent fevers overnight. Tmax 101 F Diarrhea 300 plus per d.w RN Secretions small [place] to white in color. No tube feed issues overnight. No aspiration No seizures. Neuro garsia no new events overnight Antibiotics cefazoline IV Flagyl oral Lines Line sites with no e.o infection. Past Medical History Hypertension Tubal ligation Coiling of the aneurysm this admission. External ventricular device placement. Allergies: Coded Allergies: No Known Allergies (Verified , 02/25/16) Objective . Vital Signs Date Time Temp Pulse Resp B/P Pulse Ox O2 Delivery O2 Flow Rate FiO2 07/01/17 11:13 100 40 07/01/17 10:00 86 07/01/17 09:30 40 07/01/17 08:00 100.9 109 35 168/83 100 07/01/17 08:00 109 07/01/17 07:45 40 07/01/17 07:40 100 40 07/01/17 07:40 40 07/01/17 06:00 98 07/01/17 04:24 100 40 07/01/17 04:00 100.4 86 16 186/87 100 07/01/17 04:00 86 07/01/17 04:00 40 07/01/17 02:00 99 07/01/17 01:03 100 40 07/01/17 00:00 101.1 102 21 164/75 100 07/01/17 00:00 102 07/01/17 00:00 40 06/30/17 22:00 98 06/30/17 20:00 90 06/30/17 20:00 100.0 90 18 177/76 100 06/30/17 20:00 40 06/30/17 19:49 100 40 06/30/17 18:00 90 06/30/17 16:00 40 06/30/17 16:00 100.4 85 26 159/79 100 06/30/17 16:00 86 06/30/17 15:28 100 40 06/30/17 14:00 82 8/206/30/17 07/01/17 14:59 22:59 06:59 Intake Total 1531 ml 697 ml 769 ml Output Total 2200 ml 912 ml 1750 ml Balance -669 ml -215 ml -981 ml Intake Oral 500 ml IV Total 643 ml 237 ml 386 ml Tube Feeding 388 ml 400 ml 323 ml Tube Irrigant 60 ml 60 ml Output Urine Total 2100 ml 900 ml 1750 ml Stool Total 75 ml 0 ml 0 ml Drainage Total 25 ml 12 ml . Laboratory Tests Test 06/30/17 07/01/17 11:30 03:35 White Blood Count 19.2 TH/MM3 15.6 TH/MM3 Red Blood Count 2.90 MIL/MM3 2.74 MIL/MM3 Hemoglobin 8.9 GM/DL 8.6 GM/DL Hematocrit 26.6 % 25.0 % Mean Corpuscular Volume 91.6 FL 91.1 FL Mean Corpuscular Hemoglobin 30.7 PG 31.3 PG Mean Corpuscular Hemoglobin 33.6 % 34.4 % Concent Red Cell Distribution Width 14.2 % 14.5 % Platelet Count 230 TH/MM3 261 TH/MM3 Mean Platelet Volume 8.5 FL 9.3 FL Neutrophils (%) (Auto) 88.4 % 85.0 % Lymphocytes (%) (Auto) 4.2 % 6.1 % Monocytes (%) (Auto) 5.8 % 6.8 % Eosinophils (%) (Auto) 1.3 % 1.7 % Basophils (%) (Auto) 0.3 % 0.4 % Neutrophils # (Auto) 17.0 TH/MM3 13.2 TH/MM3 Lymphocytes # (Auto) 0.8 TH/MM3 0.9 TH/MM3 Monocytes # (Auto) 1.1 TH/MM3 1.1 TH/MM3 Eosinophils # (Auto) 0.3 TH/MM3 0.3 TH/MM3 Basophils # (Auto) 0.1 TH/MM3 0.1 TH/MM3 CBC Comment DIFF FINAL DIFF FINAL Differential Comment Laboratory Tests Test 06/29/17 06/30/17 07/01/17 13:00 11:30 03:35 Potassium Level 3.7 MEQ/L 3.3 MEQ/L 3.7 MEQ/L Sodium Level 138 MEQ/L 138 MEQ/L Chloride Level 102 MEQ/L 102 MEQ/L Carbon Dioxide Level 29.1 MEQ/L 30.2 MEQ/L Anion Gap 7 MEQ/L 6 MEQ/L Blood Urea Nitrogen 16 MG/DL 14 MG/DL Creatinine 0.26 MG/DL 0.28 MG/DL Estimat Glomerular Filtration 269 ML/MIN 247 ML/MIN Rate Random Glucose 123 MG/DL 102 MG/DL Calcium Level 8.2 MG/DL 8.3 MG/DL Phosphorus Level 2.7 MG/DL Microbiology Date/Time Procedure Status Source Growth 06/29/17 15:10 Gram Stain - Final Resulted Cerebral Spinal Fluid Shunt Fluid 06/29/17 15:10 CSF Culture - Preliminary Resulted Cerebral Spinal Fluid Shunt Fluid NO GROWTH IN 48 HOURS. 06/30/17 15:20 Gram Stain - Final Resulted Sputum Endotracheal 06/30/17 15:20 Sputum Culture Resulted Sputum Endotracheal Pending 06/30/17 15:20 Urine Culture Received Urine Catheterized Urine Pending Imaging Last Impressions Chest X-Ray 06/25/17 0600 Signed Impressions: Service Date/Time: Sunday, June 25, 2017 04:53 - CONCLUSION: Increased left greater than right perihilar pulmonary parenchymal opacity likely representing pulmonary edema. Trino Hernandez MD Transcranial Doppler Study Complete 06/25/17 0000 Signed Impressions: Service Date/Time: Sunday, June 25, 2017 07:31 - CONCLUSION: 1. No evidence for vasospasm. Brown Schuler MD Head CT 06/21/17 0000 Signed Impressions: Service Date/Time: Wednesday, June 21, 2017 15:49 - CONCLUSION: Evolving intracranial hemorrhage. Nothing to suggest new hemorrhage. Silas Mtz MD Head CTA 06/20/17 0600 Signed Impressions: Service Date/Time: Tuesday, June 20, 2017 07:52 - CONCLUSION: No evidence for any significant spasm. Sascha Montez MD Neck CTA 06/15/17 1125 Signed Impressions: Service Date/Time: Thursday, June 15, 2017 12:10 - CONCLUSION: 1. No stenosis of either carotid artery. 2. No aneurysm seen. 3. Normal variants of the aortic arch. Pascual Sanderson MD Cerebral Arteriogram 06/15/17 0000 Signed Impressions: Service Date/Time: Thursday, June 15, 2017 13:11 - CONCLUSION: 1. 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 2. No significant vasospasm seen on the left. 3. I spoke with Dr. Yen immediately following the procedure. Emile Walker Jr., MD Physical Exam GENERAL: This is a well-nourished, well-developed patient, in respiratory distress. SKIN: No rashes, ecchymoses or lesions. Cool and dry. HEAD: EVD in place with clear yellow fluid EYES:. No scleral icterus. No injection or drainage. ENT: Nose without bleeding, purulent drainage or septal hematoma. Orally intubated NECK: Trachea midline. Supple, nontender, no meningeal signs. CARDIOVASCULAR: Regular rate and rhythm without murmurs, gallops, or rubs. RESPIRATORY: Clear to auscultation. Breath sounds equal bilaterally. Bilateral chest tubes in place with serous d/c GASTROINTESTINAL: Abdomen soft, non-tender, nondistended. No hepatosplenomegaly Incontinent of liquid brown stool MUSCULOSKELETAL: Extremities without clubbing, cyanosis, + small amount of edema. NEUROLOGICAL: Off sedation with no meaningful response. Agitated Psych could not be assessed IV line sites with no evidence of infection. Assessment & Plan Remarks Sepsis ? New HCAP. New infiltrate, new fevers, elevated WBC. Aspiration Pneumonia on admission. MSSA Cdiff positive diarrhea C.albicans UTI. Sneed changed when pt had fevers. Acute resp failure on vent Acute encephalopathy: Acute SAH, metabolic, infection. Acute SAH s/p aneurysm coiling. Staph epi low grade bacteremia, doubt clin significance Critically ill. Simple pleural effusions, not cw empyema Fever: ? non infectious component. r.o DVT Recs: Start Cefepime IV Start Vanco IV (15-20 target) Continue Flagyl IV Oral vanco for Cdiff. Start oral diflucan. Follow cultures. Follow clinically. d/w RN for pt. d/w dr.Moses Turner will be OOT from 07/02/2017 to 07/08/2017. Other ID MDs covering for me. Claire Guerra MD Jul 01, 2017 12:03
[2017-07-01] MEDS: PANTOPRAZOLE SODIUM 40 MG VIAL IV PUSH SCH (12:06)
[2017-07-01] MEDS: VANCOMYCIN INJ 1,250 MG in SODIUM CHLOR 0.9% 250 ML INJ 250 ML IV SCH (13:24)
[2017-07-01] MEDS: CEFEPIME INJ 2,000 MG in SODIUM CHLORIDE 0.9% INJ 100 ML IV SCH ×2 (13:24→20:20)
[2017-07-01] MEDS: ENOXAPARIN SODIUM 40 MG/0.4 ML SYRINGE SQ SCH (13:25)
[2017-07-01] MEDS: METOPROLOL TARTRATE 25 MG TAB PO SCH (15:46)
[2017-07-01] MEDS: FLUCONAZOLE 100 MG TAB PO SCH (15:47)
[2017-07-01 15:58] LABS: BLOOD GAS BASE EXCESS 5.1 mmol/L (-2-2); BLOOD GAS CARBOXYHEMOGLOBIN 1.5 % (0-4); BLOOD GAS HCO3 28 mmol/L (22-26); BLOOD GAS O2 HGB SATURATION 96 % (90-100); BLOOD GAS PCO2 37 mmHg (38-42); BLOOD GAS PO2 100 mmHg (61-120); BLOOD GAS TOTAL HGB 8.8 G/DL (12.0-16.0); CRITICAL VALUE NO; DRAW SITE RT RADIAL; LITER FLOW 3 L/M; NUMBER OF ARTERIAL PUNCTURES 1; OXYGEN DEVICE NASAL CANNULA; TEMP CORR TO 98.6
[2017-07-01 15:59] LABS: STAT YES; ULNAR PULSE PRESENT
[2017-07-01] MEDS ORDERED: POTASSIUM CHLORIDE 25 MEQ EFFERVESCENT TAB PO ONE (16:00)
[2017-07-02] VITALS (13 sets, daily range): BP systolic 114–171; BP diastolic 62–82; PULSE 78–101; RESP 20–27; TEMP 99–100.6; O2SAT 95–100
[2017-07-02] MEDS: VANCOMYCIN INJ 1,250 MG in SODIUM CHLOR 0.9% 250 ML INJ 250 ML IV SCH ×2 (01:13→13:41)
[2017-07-02] MEDS: METOPROLOL TARTRATE 25 MG TAB PO SCH ×3 (01:13→17:00)
[2017-07-02] MEDS: CHLORHEXIDINE GLUCONATE 2 % 1 PACK (2 CLOTHS) TOP SCH (03:34)
[2017-07-02] MEDS: niMODipine 30 MG CAP PO SCH ×5 (03:37→20:27)
[2017-07-02] MEDS: SODIUM CHLORIDE 1 GRAM TAB OG-TUBE SCH ×3 (03:38→17:00)
[2017-07-02] MEDS: metroNIDAZOLE 500 MG INJ 100 ML IV SCH ×3 (03:38→20:28)
[2017-07-02] MEDS: CEFEPIME INJ 2,000 MG in SODIUM CHLORIDE 0.9% INJ 100 ML IV SCH ×3 (03:38→20:28)
--- NOTE | 2017-07-02 04:41 | RADRPT ---
EXAM DATE/TIME: 07/02/2017 04:17 [facility] COMPARISON: CT BRAIN W/O CONTRAST, June 26, 2017, 12:50. INDICATIONS : Follow-up intracerebral hemorrhage. RADIATION DOSE: 31.99 CTDIvol (mGy) MEDICAL HISTORY : Cardiovascular disease. Hypertension. SURGICAL HISTORY : Aneurysm coil. ENCOUNTER: Subsequent ACUITY: 2 weeks PAIN SCALE: Non-responsive LOCATION: cranial TECHNIQUE: Multiple contiguous axial images were obtained of the head. Using automated exposure control and adj ustment of the mA and/or kV according to patient size, radiation dose was kept as low as reasonably a chievable to obtain optimal diagnostic quality images. DICOM format image data is available electro nically for review and comparison. FINDINGS: There continues to be subarachnoid hemorrhage present. Ventriculostomy remains in place with enlargin g ventricular size and function of drain should be evaluated. No acute i intraparenchymal hematoma i s evident. Coil is present in the region of the intercommunicating artery. There is evolving infarct in the left orbitofrontal region. Posterior fossa structures are unremarkable. CONCLUSION: 1. Enlarging ventricular size when compared to prior study. Continued subarachnoid hemorrhage. No int ra-parenchymal hematoma is identified 2. Evolving left orbitofrontal infarct Mp Hassan MD on July 02, 2017 at 4:36 Board Certified Radiologist. This report was verified electronically.
[2017-07-02 04:50] LABS: AUTOMATED NEUTROPHIL # 9.1 TH/MM3 (1.8-7.7); BASOPHIL # 0.1 TH/MM3 (0-0.2); BASOPHIL % 0.6 % (0.0-2.0); EOSINOPHIL # 0.3 TH/MM3 (0-0.4); EOSINOPHIL % 2.3 % (0.0-4.0); HEMATOCRIT 26.9 % (35.0-46.0); HEMO FLAGS DIFF FINAL; LYMPH % 9.5 % (9.0-44.0); LYMPHOCYTE # 1.1 TH/MM3 (1.0-4.8); MEAN CELL VOLUME 91.3 FL (80.0-100.0); MEAN CORPUSCULAR HEMOGLOBIN 29.9 PG (27.0-34.0); MEAN CORPUSCULAR HGB CONC 32.8 % (32.0-36.0); NEUT % 76.6 % (16.0-70.0); PLATELET COUNT 400 TH/MM3 (150-450); RED BLOOD COUNT 2.94 MIL/MM3 (4.00-5.30); RED CELL DISTRIBUTION WIDTH 14.4 % (11.6-17.2); WHITE BLOOD COUNT 11.9 TH/MM3 (4.0-11.0)
[2017-07-02 05:16] LABS: ALKALINE PHOSPHATASE 333 U/L (45-117); ALT (GPT) 113 U/L (10-53); ANION GAP 9 MEQ/L (5-15); AST (GOT) 83 U/L (15-37); BICARBONATE 29.5 MEQ/L (21.0-32.0); BLOOD UREA NITROGEN 10 MG/DL (7-18); CHLORIDE 102 MEQ/L (98-107); GLOMERULAR FILTRATION RATE 204 ML/MIN (>89); MAGNESIUM 2.1 MG/DL (1.5-2.5); SODIUM (NA) 140 MEQ/L (136-145); TOTAL BILIRUBIN ADULT 0.8 MG/DL (0.2-1.0)
[2017-07-02 05:27] LABS: POTASSIUM 2.7 MEQ/L (3.5-5.1)
[2017-07-02] MEDS: MAGNESIUM OXIDE 400 MG TAB PO SCH ×3 (05:32→21:53)
[2017-07-02] MEDS: POTASSIUM CHLOR 40 MEQ PREMIX 100 ML IV PRN ×2 (05:33→08:57)
--- NOTE | 2017-07-02 08:48 | HHI.NSPN ---
(Gena Nowak) Note Status Status: Progress Note (Gena Nowak) Interval History Interval History 57-year-old female admitted 06/15/17 with acute onset severe headache. 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 06/15/17 endovascular coiling of aneurysm. 06/18/17 patient with increasing confusion, new left frontal interparenchymal hemorrhage with surrounding edema on follow-up CT scan. Patient intubated for airway control. Ventriculostomy placed. 06/20/17: Remains intubated, mechanical ventilation, intravenous sedation. 06/21/17: possible septic shock, on multiple pressors. EVD draining well, bloody CSF, ICP wnl. f/u CTA Head yesterday neg for vasospasm. TCDs this morning pending. Sedation turned off 30 mins ago when rounded, no eye opening, not following commands, no withdrawals to extremities. 06/23/17: pressors being weaned off, s/p chest tube placement for severe pleural effusions. ICPs remains wnl. EVD draining well. Remains sedated. TCD this am. 06/28/17: per nursing report neuro checks improving, patient opening eyes and starting to follow commands. EVD continues to drain well, stable ICPs. 06/30/17: challenging ventriculostomy drain, CSF is clearing up, 07/02/17: EVD clamped yesterday morning, f/u CT Head this am completed (Gena Nowak) Labs, Micro, & Vital Signs Results Date Time Temp Pulse Resp B/P Pulse Ox O2 Delivery O2 Flow Rate FiO2 07/02/17 08:05 100 Nasal Cannula 2.00 07/02/17 06:00 92 07/02/17 04:00 99.0 82 26 124/65 95 07/02/17 04:00 80 07/02/17 03:00 78 07/02/17 00:00 100.6 101 27 130/62 97 07/02/17 00:00 99 07/01/17 22:00 95 07/01/17 20:32 98 Nasal Cannula 3.00 07/01/17 20:00 99.7 88 22 152/83 98 07/01/17 20:00 90 07/01/17 19:00 99 Nasal Cannula 3.00 07/01/17 18:00 88 07/01/17 16:00 100.9 96 32 139/75 96 07/01/17 16:00 96 07/01/17 14:00 99.7 97 30 140/77 99 07/01/17 14:00 97 07/01/17 13:00 100 Nasal Cannula 4.00 07/01/17 13:00 90 28 137/67 100 07/01/17 12:38 99 Nasal Cannula 4.00 07/01/17 12:00 101.0 102 31 151/69 100 07/01/17 12:00 102 07/01/17 11:13 100 40 07/01/17 10:00 86 07/01/17 09:30 40 07/02/17 07:00 Intake Total 2051 ml Output Total 8336 ml Balance -6285 ml Constitutional Vital Signs Date Time Temp Pulse Resp B/P Pulse Ox O2 Delivery O2 Flow Rate FiO2 07/02/17 08:05 100 Nasal Cannula 2.00 07/02/17 06:00 92 07/02/17 04:00 99.0 82 26 124/65 95 07/02/17 04:00 80 07/02/17 03:00 78 07/02/17 00:00 100.6 101 27 130/62 97 07/02/17 00:00 99 07/01/17 22:00 95 07/01/17 20:32 98 Nasal Cannula 3.00 07/01/17 20:00 99.7 88 22 152/83 98 07/01/17 20:00 90 07/01/17 19:00 99 Nasal Cannula 3.00 07/01/17 18:00 88 07/01/17 16:00 100.9 96 32 139/75 96 07/01/17 16:00 96 07/01/17 14:00 99.7 97 30 140/77 99 07/01/17 14:00 97 07/01/17 13:00 100 Nasal Cannula 4.00 07/01/17 13:00 90 28 137/67 100 07/01/17 12:38 99 Nasal Cannula 4.00 07/01/17 12:00 101.0 102 31 151/69 100 07/01/17 12:00 102 07/01/17 11:13 100 40 07/01/17 10:00 86 07/01/17 09:30 40 07/02/17 07:00 Intake Total 2051 ml Output Total 8336 ml Balance -6285 ml (Gena Nowak) Review of Systems/Exam Exam Awake. Nods appropriately. Ventriculostomy drain secured in place, currently clamped. CN: pupils 2 mm equal. Motor: followed commands x 4 extremities (Gena Nowak) Exam Ms Nevarez is alert, awake. Follows comands Cranial nerve examination: pupils to be equal, round and reactive to light. Extra-ocular movements are intact. Facial motor and sensory function are normal and symmetrical. Gross hearing appears intact. Sternocleidomastoid and trapezius muscles are symmetrical. Other cranial nerves are intact. Neck is soft and supple with a good range of motion without pain. Muscle strength is normal in all muscle groups of both upper and lower extremities. Sensory examination is intact to light touch and pin prick in both the upper and lower extremities. Deep tendon reflexes are symmetrical in both upper and lower extremities. There is a bilateral plantar flexion response. Cerebellar examination is limited, unremarkable (Micah Hoff MD) Medications Current Medications Current Medications Medications (Trade) Dose Ordered Sig/Doris Route PRN Reason Start Time Stop Time Status Last Admin Dose Admin Ondansetron HCl (Zofran Inj) 4 mg Q6H PRN IV NAUSEA OR VOMITING 06/15/17 13:30 06/18/17 13:00 Miscellaneous Information 1 Q361D XX 06/15/17 13:30 Chlorhexidine Gluconate (Chlorhexidine 2% Cloth) Taper DAILY@04 TOP 06/16/17 04:00 06/12/18 03:59 07/01/17 04:00 Chlorhexidine Gluconate (Chlorhexidine 2% Cloth) 3 pack UNSCH PRN TOP HYGIENIC CARE 06/15/17 13:30 Senna/Docusate Sodium (Prabha-Colace) 1 tab BID PO 06/15/17 21:00 06/29/17 09:11 Magnesium Hydroxide (Milk Of Magnesia Liq) 30 ml Q12H PRN PO MILD - MODERATE CONSTIPATION 06/15/17 13:30 Sennosides (Senokot) 17.2 mg Q12H PRN PO MODERATE - SEVERE CONSTIPATION 06/15/17 13:30 Bisacodyl (Dulcolax Supp) 10 mg DAILY PRN RECTAL SEVERE CONSITIPATION 06/15/17 13:30 Lactulose (Lactulose Liq) 30 ml DAILY PRN PO SEVERE CONSITIPATION 06/15/17 13:30 Labetalol HCl (Trandate Inj) 10 mg Q1H PRN IV PUSH SBP >160 06/15/17 13:30 07/01/17 00:29 Acetaminophen/ Hydrocodone Bitart 1 tab 1 tab Q4H PRN PO pain 1-5 06/16/17 11:30 06/30/17 04:04 Potassium Chloride 100 ml @ 50 mls/hr Q2H PRN IV For Potassium 2.8 - 3.2 mEq/L 06/18/17 05:30 07/02/17 05:33 Potassium Chloride (KCl 20 Meq Premix Inj) 100 ml @ 50 mls/hr Q2H PRN IV For Potassium 2.8 - 3.2 mEq/L 06/18/17 05:30 Potassium Bicarb/ Potassium Chloride 50 meq 50 meq UNSCH PRN PO For Potassium 3.3 - 3.5 mEq/L 06/18/17 05:30 06/20/17 17:59 Potassium Chloride 100 ml @ 25 mls/hr UNSCH PRN IV For Potassium 3.3 - 3.5 mEq/L 06/18/17 05:30 06/30/17 12:54 Potassium Chloride 100 ml @ 50 mls/hr Q2H PRN IV For Potassium 3.3 - 3.5 mEq/L 06/18/17 05:30 Magnesium Sulfate/ Sodium Chloride (Magnesium Sulfate Inj/NS Inj) 100 ml @ 50 mls/hr UNSCH PRN IV For Magnesium 0.9 - 1.1 mg/dL 06/18/17 05:30 Magnesium Oxide 800 mg 800 mg UNSCH PRN PO For Magnesium 1.2 - 1.6 mg/dL 06/18/17 05:30 Magnesium Sulfate/ Sodium Chloride (Magnesium Sulfate Inj/NS Inj) 100 ml @ 50 mls/hr UNSCH PRN IV For Magnesium 1.2 - 1.6 mg/dL 06/18/17 05:30 06/20/17 18:28 Potassium Phosphate 2000 mg 2,000 mg Q4H PRN PO For Phosphorus < 2.5 mg/dL 06/18/17 05:30 Sodium Phosphate/ Sodium Chloride (Sodium Phosphate Inj/NS 250 ml Inj) 250 ml @ 42 mls/hr UNSCH PRN IV For Phosphorus < 2.5 mg/dL 06/18/17 05:30 06/20/17 18:51 Potassium Phosphate 2000 mg 2,000 mg UNSCH PRN PO/TUBE SEE LABEL COMMENTS 06/18/17 05:30 Potassium Phosphate/Sodium Chloride (Potassium Phosphate Inj/NS 250 ml Inj) 260 ml @ 42 mls/hr UNSCH PRN IV SEE LABEL COMMENTS 06/18/17 05:30 Protein (Beneprotein Powder) 1 pack TID G-TUBE 06/19/17 13:00 06/30/17 18:00 Acetaminophen (Tylenol 650 Mg/ 20 ml Liq) 650 mg Q4H PRN PO Temp > 100.5 06/19/17 12:45 07/01/17 23:18 Terbutaline Sulfate (Brethine Inj) 1 mg UNSCH PRN SQ For Extravasation 06/20/17 17:30 Potassium Bicarb/ Potassium Chloride (K-Lyte Cl Eff) 25 meq Q12HR PO 06/21/17 10:00 07/01/17 20:21 Magnesium Oxide 400 mg 400 mg Q8HR PO 06/21/17 22:00 07/02/17 05:32 Metronidazole (Flagyl 500 Mg Inj) 100 ml @ 100 mls/hr Q8H IV 06/26/17 12:00 07/02/17 03:38 Nimodipine (Nimotop) 60 mg Q4HR PO 06/26/17 12:00 07/02/17 03:37 Vancomycin HCl (VANCOMYCIN for oral use only) 250 mg QID PO 06/28/17 09:00 07/01/17 20:21 Enoxaparin Sodium (Lovenox Inj) 40 mg Q24H SQ 06/28/17 14:00 07/01/17 13:25 Levetriacetam (Keppra Liq) 500 mg Q12HR NG 06/29/17 21:00 07/01/17 20:21 Sodium Chloride (Sodium Chloride) 1 gm Q6H OG-TUBE 06/30/17 17:00 07/02/17 03:38 Metoprolol Tartrate 12.5 mg 12.5 mg Q8H PO 07/01/17 17:00 07/02/17 01:13 Nicardipine HCl/ Sodium Chloride (Cardene Inj/NS 250 ml Inj) 260 ml @ 0 mls/hr TITRATE IV 07/01/17 09:45 Hydralazine HCl (Apresoline Inj) 10 mg Q4H PRN IV PUSH SBP >160 07/01/17 09:45 Miscellaneous (Pill Splitter) 1 ea UNSCH PRN OTHER SEE LABEL COMMENTS 07/01/17 09:45 Nystatin (Mycostatin Cream) 1 applic Q12HR TOPICAL 07/01/17 11:00 07/01/17 20:22 Pantoprazole Sodium 40 mg 40 mg Q24H IV PUSH 07/01/17 11:00 07/01/17 12:06 Cefepime HCl 2000 mg/Sodium Chloride 100 ml @ 200 mls/hr Q8H IV 07/01/17 12:00 07/02/17 03:38 Pharmacy Profile Note 0 ml @ 0 mls/hr UNSCH OTHER 07/01/17 12:00 Vancomycin HCl/ Sodium Chloride (Vancomycin Inj/ NS 250 ml Inj) 262.5 ml @ 250 mls/hr Q12H IV 07/01/17 13:00 07/02/17 01:13 Miscellaneous Information SPECIFIC LAB TO BE ... ONCE ONCE .XX 07/03/17 00:45 07/03/17 00:46 Fluconazole (Diflucan) 100 mg DAILY PO 07/01/17 14:00 07/01/17 15:47 (Gena Nowak) Medical Decision Making MDM Remarks 57 y/o female with SAH from ruptured ACOM aneurysm s/p endovascular coiling 06/15 s/p placement of right ventriculostomy drain, stable ICPs, CSF appearing less bloody, challenging ventriculostomy drain CT Head post EVD clamping 07/02 shows increased ventricle size (Gena Nowak) Plan Plan Remarks f/u CT Head reviewed post EVD clamping with enlargement of ventricles, will reopen EVD to drain, pt will require placement of permanent COOK MESS shunt upon Dr. Yen's return cont current care cont therapy cont serial neuro checks (Gena Nowak) Attending Statement Continue neuro checks. Nimodipine, Keppra. ventriculostomy. Follow up daily TCD's Pulmonary. Cont mechanical ventilation, aggressive pulmonary toilette, nasotracheal suction, and breathing treatments with nebulizers. Status post chest tube. Follow up chest xrays Daily PT and OT Nutrition. oral diet Renal. Continue to monitor closely urine output, BUN and creatinine Endocrine. Continue to Monitor serial Acu checks and SSI as needed in detail ID Cdiff positive. Continue antibiotics. Continue Protonix for stress ulcer prophylaxis Continue Wade hose and SCD's for DVT prophylaxis. Lovenox The exam, history, and the medical decision-making described in the above note were completed with the assistance of the mid-level provider. I reviewed and agree with the findings presented. I attest that I had a [id number] encounter with the patient on the same day, and personally performed and documented my assessment and findings in the medical record. (Micah Hoff MD) Gena Nowak Jul 02, 2017 08:48 Micah Hoff MD Jul 06, 2017 11:29
[2017-07-02] MEDS: VANCOMYCIN 500 MG VIAL (FOR ORAL USE ONLY) PO SCH ×4 (08:57→20:28)
[2017-07-02] MEDS: FLUCONAZOLE 100 MG TAB PO SCH (08:57)
[2017-07-02] MEDS: SODIUM PHOSPHATE INJ 30 MMOL in SODIUM CHLOR 0.9% 250 ML INJ 240 ML IV PRN (08:57)
[2017-07-02] MEDS: levETIRAcetam 500 MG/5 ML UDC NG SCH ×2 (08:57→20:29)
[2017-07-02] MEDS: POTASSIUM CHLORIDE 25 MEQ EFFERVESCENT TAB PO SCH ×2 (08:58→20:28)
[2017-07-02] MEDS: BENEPROTEIN POWDER 1 PACK G-TUBE SCH ×3 (08:59→18:00)
[2017-07-02] MEDS: DOCUSATE SODIUM 50 MG/SENNA 8.6 MG TAB PO SCH ×2 (08:59→20:29)
[2017-07-02] MEDS: NYSTATIN 100,000 UNIT/GM CREAM 15 GM TOPICAL SCH ×2 (08:59→20:29)
[2017-07-02] MEDS: PANTOPRAZOLE SODIUM 40 MG VIAL IV PUSH SCH (11:01)
[2017-07-02] MEDS: ENOXAPARIN SODIUM 40 MG/0.4 ML SYRINGE SQ SCH (13:42)
--- NOTE | 2017-07-02 15:30 | HHI.IDPN ---
Note Infectious Disease Note ID coverage Notes reviewed. Ms. Nevarez is a 57-year-old female with past medical history significant for hypertension with SAH, acute VDRF,on vent developed MSSA PNA, Patient off the vent and awake and alert and responsive. low grade fever. Denies pain. sp b/l chest tubes Antibiotics cefazoline IV Flagyl oral Lines Line sites with no e.o infection. Past Medical History Hypertension Tubal ligation Coiling of the aneurysm this admission. External ventricular device placement. Allergies: Coded Allergies: No Known Allergies (Verified , 02/25/16) OBJECTIVE: Vital Signs Date Time Temp Pulse Resp B/P Pulse Ox O2 Delivery O2 Flow Rate FiO2 07/02/17 14:00 81 07/02/17 12:00 78 07/02/17 12:00 99.5 82 20 114/65 100 07/02/17 10:00 79 07/02/17 08:05 100 Nasal Cannula 2.00 07/02/17 08:00 84 07/02/17 08:00 99.7 78 24 171/82 100 07/02/17 07:00 100 Nasal Cannula 2.00 07/02/17 06:00 92 07/02/17 04:00 99.0 82 26 124/65 95 07/02/17 04:00 80 07/02/17 03:00 78 07/02/17 00:00 100.6 101 27 130/62 97 07/02/17 00:00 99 07/01/17 22:00 95 07/01/17 20:32 98 Nasal Cannula 3.00 07/01/17 20:00 99.7 88 22 152/83 98 07/01/17 20:00 90 07/01/17 19:00 99 Nasal Cannula 3.00 07/01/17 18:00 88 07/01/17 16:00 100.9 96 32 139/75 96 07/01/17 16:00 96 07/01/17 07/01/17 07/02/17 15:00 23:00 07:00 Intake Total 574 ml 596 ml 881 ml Output Total 3665 ml 2211 ml 2460 ml Balance -3091 ml -1615 ml -1579 ml Intake Oral 150 ml 250 ml IV Total 304 ml 446 ml 631 ml Tube Feeding 230 ml Tube Irrigant 40 ml Output Urine Total 3250 ml 2100 ml 2350 ml Stool Total 400 ml 100 ml 100 ml Drainage Total 15 ml 11 ml 10 ml Laboratory Tests Test 07/01/17 07/02/17 03:35 03:40 White Blood Count 15.6 TH/MM3 11.9 TH/MM3 Red Blood Count 2.74 MIL/MM3 2.94 MIL/MM3 Hemoglobin 8.6 GM/DL 8.8 GM/DL Hematocrit 25.0 % 26.9 % Mean Corpuscular Volume 91.1 FL 91.3 FL Mean Corpuscular Hemoglobin 31.3 PG 29.9 PG Mean Corpuscular Hemoglobin 34.4 % 32.8 % Concent Red Cell Distribution Width 14.5 % 14.4 % Platelet Count 261 TH/MM3 400 TH/MM3 Mean Platelet Volume 9.3 FL 8.9 FL Neutrophils (%) (Auto) 85.0 % 76.6 % Lymphocytes (%) (Auto) 6.1 % 9.5 % Monocytes (%) (Auto) 6.8 % 11.0 % Eosinophils (%) (Auto) 1.7 % 2.3 % Basophils (%) (Auto) 0.4 % 0.6 % Neutrophils # (Auto) 13.2 TH/MM3 9.1 TH/MM3 Lymphocytes # (Auto) 0.9 TH/MM3 1.1 TH/MM3 Monocytes # (Auto) 1.1 TH/MM3 1.3 TH/MM3 Eosinophils # (Auto) 0.3 TH/MM3 0.3 TH/MM3 Basophils # (Auto) 0.1 TH/MM3 0.1 TH/MM3 CBC Comment DIFF FINAL DIFF FINAL Differential Comment Laboratory Tests Test 07/01/17 07/01/17 07/02/17 03:35 11:45 03:30 Sodium Level 138 MEQ/L 140 MEQ/L Potassium Level 3.7 MEQ/L 2.7 MEQ/L Chloride Level 102 MEQ/L 102 MEQ/L Carbon Dioxide Level 30.2 MEQ/L 29.5 MEQ/L Anion Gap 6 MEQ/L 9 MEQ/L Blood Urea Nitrogen 14 MG/DL 10 MG/DL Creatinine 0.28 MG/DL 0.33 MG/DL Estimat Glomerular Filtration 247 ML/MIN 204 ML/MIN Rate Random Glucose 102 MG/DL 104 MG/DL Calcium Level 8.3 MG/DL 8.3 MG/DL Phosphorus Level 2.7 MG/DL 2.4 MG/DL Procalcitonin 0.24 ng/mL Magnesium Level 2.1 MG/DL Total Bilirubin 0.8 MG/DL Aspartate Amino Transf 83 U/L (AST/SGOT) Alanine Aminotransferase 113 U/L (ALT/SGPT) Alkaline Phosphatase 333 U/L Total Protein 6.0 GM/DL Albumin 3.2 GM/DL Microbiology Date/Time Procedure Status Source Growth 06/30/17 15:20 Gram Stain - Final Complete Sputum Endotracheal 06/30/17 15:20 Sputum Culture - Final Complete Sputum Endotracheal HEAVY GROWTH NORMAL RESPIRATORY ODELL 06/30/17 15:20 Urine Culture - Final Complete Urine Catheterized Urine Heidi Albicans 07/01/17 12:40 Aerobic Blood Culture - Preliminary Resulted Blood Peripheral NO GROWTH IN 1 DAY 07/01/17 12:40 Anaerobic Blood Culture - Preliminary Resulted Blood Peripheral NO GROWTH IN 1 DAY 07/01/17 12:47 Aerobic Blood Culture - Preliminary Resulted Blood Peripheral NO GROWTH IN 1 DAY 07/01/17 12:47 Anaerobic Blood Culture - Preliminary Resulted Blood Peripheral NO GROWTH IN [address] 07/02/17 0600 Signed Impressions: Service Date/Time: Sunday, July 02, 2017 04:17 - CONCLUSION: 1. Enlarging ventricular size when compared to prior study. Continued subarachnoid hemorrhage. No intra-parenchymal hematoma is identified 2. Evolving left orbitofrontal infarct Mp Hassan MD Chest X-Ray 07/01/17 0000 Signed Impressions: Service Date/Time: June 10:05 - CONCLUSION: 1. Increased left perihilar and basilar airspace disease since June 2. Probable small effusions. Endotracheal tube, nasogastric tube and right central line in satisfactory position. No pneumothorax. Poncho Aguilera MD Transcranial Doppler Study Complete 06/30/17 0000 Signed Impressions: Service Date/Time: Friday, June 30, 2017 07:45 - CONCLUSION: 1. No evidence for vasospasm. Brown Schuler MD Upper Extremity Ultrasound 06/28/17 0000 Signed Impressions: Service Date/Time: Wednesday, June 28, 2017 09:12 - CONCLUSION: There is thrombus within the left basilic vein and right cephalic vein. Sascha Montez MD Lower Extremity Ultrasound 06/28/17 0000 Signed Impressions: Service Date/Time: Wednesday, June 28, 2017 08:53 - CONCLUSION: Normal examination. Sascha Montez MD Head CTA 06/20/17 0600 Signed Impressions: Service Date/Time: Tuesday, June 20, 2017 07:52 - CONCLUSION: No evidence for any significant spasm. Sascha Montez MD Neck CTA 06/15/17 1125 Signed Impressions: Service Date/Time: Thursday, June 15, 2017 12:10 - CONCLUSION: 1. No stenosis of either carotid artery. 2. No aneurysm seen. 3. Normal variants of the aortic arch. Pascual Sanderson MD Cerebral Arteriogram 06/15/17 0000 Signed Impressions: Service Date/Time: Thursday, June 15, 2017 13:11 - CONCLUSION: 1. 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 2. No significant vasospasm seen on the left. 3. I spoke with Dr. Yen immediately following the procedure. Emile Walker Jr., MD Physical Exam GENERAL: Patient is alert. SKIN: No rash. HEENT: EOMI, VERN. No icterus. NECK: Supple no adenopathy. CHEST: Clear. CARDIAC. Nl S12S. ABDOMEN: Soft, non tender. EXTREMITIES: No CCE. Assessment & Plan Remarks Sepsis ? New HCAP. New infiltrate, new fevers, elevated WBC. Aspiration Pneumonia on admission. MSSA Cdiff positive diarrhea C.albicans UTI. Sneed changed when pt had fevers. Acute resp failure on vent Acute encephalopathy: Acute SAH, metabolic, infection. Acute SAH s/p aneurysm coiling. Staph epi low grade bacteremia, doubt clin significance Critically ill. Simple pleural effusions, not cw empyema Fever: ? non infectious component. r.o DVT Leukocytosis improving. Appears to be stable. Recs: continue Cefepime IV continue Vanco IV (15-20 target) Continue Flagyl IV Oral vanco for Cdiff. Continue Diflucan. Follow cultures. Follow clinically. Winston Sheldon MD Jul 02, 2017 15:30
--- NOTE | 2017-07-02 20:30 | HHI.CCPN ---
Subjective Remarks/Hospital Course 06/15: Acute SAH with a-com aneurysm. Coiled 06/15. 06/16: BP control acceptable. Severe headache, but she gets somnolent after minimal analgesia. Some nausea and vomiting. 06/17: BP control good. Mild permissive hypertension 150s. Persistent headache and anxiety. Patient requests nicoderm patch but I am concerned about promoting unnecessary vasospasm. 06/18: Sudden onset altered mental status. Patient complaining of head ache and turning in bed, somewhat decreased level of consciousness. Transcranial Doppler did not show vasospasm today morning. Continue permissive hypertension. Stat CT of the head and CT angiogram ordered and discussed with interventional radiology Dr. Sanderson. (Dr. Yen in [place]) 06/19: Blood pressure in good range.TCDs today. Start TFs. 06/20: TCD 06/19 showed increase in the degree of vasospasm on the left, and decrease in degree of vasospasm on the right since the prior exam from one day ago. Getting CTA brain today. Remains on vasopressin and Emil-Synephrine to maintain systolic blood pressure 160-180. EVD drained 182 mL in 24 hours, ICP well controlled. UO 7L in 24 hours 06/21: Remains extremely critical. Profound shock, on 4 pressors to maintain SBP >110. On norepinephrine, dopamine, Emil-Synephrine and vasopressin. Unable to obtain target systolic blood pressure more than 160. Patient was started on Zosyn yesterday added vancomycin today. Teixeira cultures sent stress dose hydrocortisone started. Start Ben-trac monitoring. UO >12 L in 24 hours, osmolality studies not consistent with DI joseph though partial DI is possible. Check urine sp gravity and osm again. and Start scheduled DDAVP is suggestive of DI. Family updated in detail 06/22: Overnight developed worsening hypoxemia, refractory to conventional ventilator modes. With PEEP of 12 and FiO2 100% saturation remained in low 80s. Dr. Rodriguez placed on BiLevel (APPV) with improvement in oxygen saturation 90 % and no CO2 retention. I evaluated the patient with bedside ultrasound which showed moderate to large bilateral pleural effusions. Changed mode to PCV to avoid pneumothorax while placing chest tube. After this I placed 10 Lebanese pigtail catheter on the right side with immediate drainage of total 900 mL clear pleural fluid. Postprocedure oxygen saturation improved to 100% immediately, I was able to reduce the Insp pressure to 30. I will proceed with L pigtail chest tube after CXR confirms no complications 06/23: Remains intubated heavily sedated. Oxygenation improved after bilateral pigtail chest tube placement yesterday. R drained 1.1L and L 0.9L. lowering doses of Levophed and vasopressin. Discontinue vasopressin today 06/24: Heavy sedation limiting neuro exam. Decreasing pressor requirement as patient is maintaining blood pressure. Urine output adequate. Sodium 158 discontinue 3% saline 06/25: Continues to have no evidence of vasospasm. Coming off pressors. Sedation held now. Sodium 155. Overall continues to be positive fluid balance. We'll give IV Bumex 2 mg 1 with potassium replacement and stop all IV fluids. target SBP 140-150 06/26: Patient examined of sedation. White count slightly going up C. difficile positive chest x-ray shows some edema will do repeat dose of Bumex. Systolic blood pressure 140-160 maintained on Cardene infusion 06/27: WBC improving. hemodynamically stable. Remains intubated and critically ill. Urine output excellent with Bumex yesterday. Will give additional dose of Bumex today. 06/28: Improving neuro exam. Today off sedation patient able to follow commands very weakly 4. Cleared for Lovenox by Dr. Hoff. Maintaining systolic blood pressure less than 160 without Cardene 06/29 Lethargic but follows commands with all extremities. Temp max 99.1. WBC 17.3 Back on cardene 3 mg/hr. 06/30 NSG challenging EVD to 20 cm. Sneed was replaced earlier today due to occlusion. Now temp 101. CSF culture from 06/29 NGTD. Cultured blood and urine. On flagyl/vanc for C diff. Off cardene. She tolerated CPAP 15/5 all day yesterday. Tolerating 10/5, adjust to 5/5 now. She follows commands and is more consistent with following commands today than yesterday so seems to be improving. Still with eyes primarily shut but will open and track when stimulated. TCD neg for vasospasm 07/01 Continues to make neurologic improvement. More alert today with spontaneous eye opening, tracking, nodding to questions. Following commands by moving all extremities. Tolerated CPAP 5/5 for two hours yesterday. Placing on CPAP. Temp max 101.1. NSG clamping ventric. Subjective: 07/02: no changes. remains off the vent with stable neuro exam which is intact. no complaints. head CT today with increase in ventricle size, EVD reopened. will need VPS. Objective Vital Signs Date Time Temp Pulse Resp B/P Pulse Ox O2 Delivery O2 Flow Rate FiO2 07/02/17 18:00 84 07/02/17 16:00 100.2 23 145/67 100 07/02/17 08:05 Nasal Cannula 2.00 07/01/17 11:13 40 Intake and Output 07/01/17 07/01/17 07/01/17 07:59 15:59 23:59 Intake Total 769 ml 574 ml 596 ml Output Total 1750 ml 3665 ml 2211 ml Balance -981 ml -3091 ml -1615 ml Result Diagram: 07/02/17 0340 07/02/17 0330 Other Results Microbiology Date/Time Procedure Status Source Growth 06/30/17 15:20 Gram Stain - Final Complete Sputum Endotracheal 06/30/17 15:20 Sputum Culture - Final Complete Sputum Endotracheal HEAVY GROWTH NORMAL RESPIRATORY ODELL 06/30/17 15:20 Urine Culture - Final Complete Urine Catheterized Urine Heidi Albicans Objective Remarks Gen: female sitting in bed, no acute distress. SKIN: Ecchymosis overlying left lateral thigh. Head: Atraumatic. EVD in place on Right + 10 cm, fluid noncloudy. ICP well controlled Neck: trachea midline. Lungs: CTA. unlabored. Heart: normal rate, regular, sinus by tele. No JVD. Abdomen: Soft, nondistended, no guarding. : Sneed in place with yellow urine output. Extremities: Peripheral pulses are palpable. No significant peripheral edema. Neuro: Pupils are equal reactive. RASS 0. follows commands. 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 Plan: NEURO Extensive SAH secondary to ruptured ACOM aneurysm Left frontal intraparenchymal hemorrhage, with edema Mild Vasospasm, now resolved Possible partial DI-resolved - 5x4x3 mm ACOM aneurysm successfully treated with coil embolization. - Transcranial Doppler c/w vasospasm on the left side 06/19/17, stat CTA 06/20 no significant vasospasm. Since then serial TCD had been neg for vasospasm - CT head on 06/18/17 had shown left frontal vasogenic edema and intraparenchymal hemorrhage, rpt 06/21 unchanged - Systolic blood pressure target 140-160 - Continue Nimotop at 60 mg po q4. - On Keppra 500 q12 per tube. - Keep sodium normal. Continue sodium 1 gram tab per tube qid -Ventric reopened 07/02 due to hydrocephalus. set at [id number] CVS: Severe shock-now resolved Fluid overload, improved. - Off all pressors. - Echo EF 65-70% - Nimodipine 60 mg by mouth every 4 hours. - metoprolol 12.5 q8 hours. Labetalol/hydralazine prn SBP >160. RESP: Acute hypoxemic respiratory failure Bilateral pleural effusion HCAP - Intubated for airway protection 06/18/17, extubated 07/01. - S/p bilateral pigtail chest tubes with approximately 1 L each removed 06/22/17 , output declined L chest tube removed 06/29. R chest tube removed 06/30. -CXR 07/01 worsening LLL opacity concerning for HCAP. broadened abx 07/01 - DuoNeb every 6 hours and when necessary ventilator bundle. HOB elevated. - Discontinued stress dose steroids 06/26 GI: C. difficile diarrhea - Was JEvity 1.5 @ 40/hr with beneprotein per nutrition recs, now tolerating regular diet. IV Protonix -Speech eval - d/c dignishield. - C. difficile positive . On Flagyl IV, vancomycin by mouth. FEN/RENAL: Severe hypokalemia, resolved. Hypomagnesemia, resolved - Sneed for accurate intake output. Sneed was replaced 06/30 due to obstruction. - Electrolyte replacement per protocol. ID/HEME: Staph aureus pneumonia C. difficile diarrhea - IV Flagyl started 06/26 #7. Vancomycin by mouth started 06/28 #5. -Has been on ancef for MSSA pneumonia. Clinically infiltrates had resolved and pt tolerating CPAP indicating clinical improvement. In view of this, watching off abx except those directed toward C diff. (had been on abx with MSSA coverage 06/20-06/29 #10). Having intermittent fevers and so ordered panculture 06/30. Deaver may be central fevers vs superficial thrombophlebitis so, in view of clinical stability, have held off on restarting abx so as not to exacerbate C diff. However, now with fever 101 and new LLL infiltrate concerning for VAP. Discussed with Dr. Ascencion Guerra and she started on Cefepime and Vancomycin. Delay in treating pneumonia could sabotage efforts at liberation from mechanical ventilation so benefit of abx outweighs risk. CSF culture from 06/29 negative to date. Procalcitonin 0.25 on 06/28, repeat today 0.24 - Venous scan shows left basilic and right cephalic thrombus. Not a candidate for full anticoagulation. Continue on Lovenox 40 mg subcutaneous daily ENDO: Euglycemic Proph: - Lovenox 40 mg sq daily was started on 06/28/17 - SCDs. - Protonix 40 mg IV daily for stress ulcer prophylaxis. ACCESS: piv x 2. Overall impression: Extensive SAH associated with ACOM aneurysm, clinically starting to improve. PT consult. needs VPS. Frank Meza MD Jul 02, 2017 20:30
[2017-07-03] VITALS (14 sets, daily range): BP systolic 140–162; BP diastolic 70–87; PULSE 68–98; RESP 21–24; TEMP 98.5–99.8; O2SAT 94–100
[2017-07-03] MEDS: niMODipine 30 MG CAP PO SCH ×6 (00:10→21:13)
[2017-07-03] MEDS: SODIUM CHLORIDE 1 GRAM TAB OG-TUBE SCH ×4 (00:10→17:10)
[2017-07-03] MEDS ORDERED: PHARMACY ORDERED LAB ONE (00:45)
[2017-07-03] MEDS: METOPROLOL TARTRATE 25 MG TAB PO SCH ×3 (02:30→17:10)
[2017-07-03] MEDS: VANCOMYCIN INJ 1,250 MG in SODIUM CHLOR 0.9% 250 ML INJ 250 ML IV SCH (02:30)
[2017-07-03 02:55] LABS: POTASSIUM 3.4 MEQ/L (3.5-5.1)
[2017-07-03] MEDS: CHLORHEXIDINE GLUCONATE 2 % 1 PACK (2 CLOTHS) TOP SCH ×2 (03:36→22:34)
[2017-07-03] MEDS: metroNIDAZOLE 500 MG INJ 100 ML IV SCH ×3 (05:23→21:12)
[2017-07-03] MEDS: CEFEPIME INJ 2,000 MG in SODIUM CHLORIDE 0.9% INJ 100 ML IV SCH ×3 (05:23→21:12)
[2017-07-03 05:24] LABS: HEMATOCRIT 28.7 % (35.0-46.0); MEAN CORPUSCULAR HEMOGLOBIN 31.5 PG (27.0-34.0); MEAN CORPUSCULAR HGB CONC 34.6 % (32.0-36.0); PLATELET COUNT 507 TH/MM3 (150-450); RED BLOOD COUNT 3.16 MIL/MM3 (4.00-5.30); RED CELL DISTRIBUTION WIDTH 14.6 % (11.6-17.2); REVIEW FLAG FINAL; WHITE BLOOD COUNT 10.8 TH/MM3 (4.0-11.0)
[2017-07-03 06:08] LABS: POTASSIUM 3.3 MEQ/L (3.5-5.1)
[2017-07-03] MEDS: MAGNESIUM OXIDE 400 MG TAB PO SCH ×3 (06:16→22:48)
[2017-07-03 07:15] LABS: CALCIUM-PROTEIN CORRECTED 7.7 MG/DL (8.5-10.1)
[2017-07-03] MEDS: NYSTATIN 100,000 UNIT/GM CREAM 15 GM TOPICAL SCH ×2 (09:00→21:00)
[2017-07-03] MEDS: DOCUSATE SODIUM 50 MG/SENNA 8.6 MG TAB PO SCH ×2 (09:00→21:00)
[2017-07-03] MEDS: levETIRAcetam 500 MG/5 ML UDC NG SCH ×2 (09:04→21:13)
[2017-07-03] MEDS: VANCOMYCIN 500 MG VIAL (FOR ORAL USE ONLY) PO SCH ×4 (09:05→21:14)
[2017-07-03] MEDS: POTASSIUM CHLORIDE 25 MEQ EFFERVESCENT TAB PO SCH ×2 (09:05→21:16)
[2017-07-03] MEDS: BENEPROTEIN POWDER 1 PACK G-TUBE SCH ×3 (09:11→17:11)
[2017-07-03] MEDS: FLUCONAZOLE 100 MG TAB PO SCH (09:11)
[2017-07-03] MEDS: VANCOMYCIN 1,000 MG/NS 250 ML IV SCH ×4 (11:49→18:42)
[2017-07-03] MEDS: PANTOPRAZOLE SODIUM 40 MG VIAL IV PUSH SCH (11:58)
--- NOTE | 2017-07-03 13:28 | HHI.NSPN ---
(Gena Nowak) Note Status Status: Progress Note (Gena Nowak) Status: Progress Note (Micah Hoff MD) Interval History Interval History 57-year-old female admitted 06/15/17 with acute onset severe headache. 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 06/15/17 endovascular coiling of aneurysm. 06/18/17 patient with increasing confusion, new left frontal interparenchymal hemorrhage with surrounding edema on follow-up CT scan. Patient intubated for airway control. Ventriculostomy placed. 06/20/17: Remains intubated, mechanical ventilation, intravenous sedation. 06/21/17: possible septic shock, on multiple pressors. EVD draining well, bloody CSF, ICP wnl. f/u CTA Head yesterday neg for vasospasm. TCDs this morning pending. Sedation turned off 30 mins ago when rounded, no eye opening, not following commands, no withdrawals to extremities. 06/23/17: pressors being weaned off, s/p chest tube placement for severe pleural effusions. ICPs remains wnl. EVD draining well. Remains sedated. TCD this am. 06/28/17: per nursing report neuro checks improving, patient opening eyes and starting to follow commands. EVD continues to drain well, stable ICPs. 06/30/17: challenging ventriculostomy drain, CSF is clearing up, 07/02/17: EVD clamped yesterday morning, f/u CT Head this am completed 07/03/17: family would like to rechallenge EVD prior to HOSTED SERVICES ANALYST shunt (Gena Nowak) Labs, Micro, & Vital Signs Results Date Time Temp Pulse Resp B/P Pulse Ox O2 Delivery O2 Flow Rate FiO2 07/03/17 07:06 96 21 07/03/17 06:00 87 07/03/17 04:00 98.6 87 24 162/87 94 07/03/17 04:00 87 07/03/17 02:00 88 07/03/17 00:00 93 07/03/17 00:00 99.5 93 23 156/86 99 07/02/17 22:00 96 07/02/17 20:00 99.3 88 26 137/67 100 07/02/17 20:00 88 07/02/17 19:00 100 Room Air 07/02/17 18:00 84 07/02/17 16:00 100.2 80 23 145/67 100 07/02/17 16:00 83 07/02/17 14:00 81 07/03/17 07:00 Intake Total 2516 ml Output Total 4655 ml Balance -2139 ml Constitutional Vital Signs Date Time Temp Pulse Resp B/P Pulse Ox O2 Delivery O2 Flow Rate FiO2 07/03/17 07:06 96 21 07/03/17 06:00 87 07/03/17 04:00 98.6 87 24 162/87 94 07/03/17 04:00 87 07/03/17 02:00 88 07/03/17 00:00 93 07/03/17 00:00 99.5 93 23 156/86 99 07/02/17 22:00 96 07/02/17 20:00 99.3 88 26 137/67 100 07/02/17 20:00 88 07/02/17 19:00 100 Room Air 07/02/17 18:00 84 07/02/17 16:00 100.2 80 23 145/67 100 07/02/17 16:00 83 07/02/17 14:00 81 07/03/17 07:00 Intake Total 2516 ml Output Total 4655 ml Balance -2139 ml (Gena Nowak) Review of Systems/Exam Exam Awake. Nods appropriately. Ventriculostomy drain secured in place open at 10 cm H20, ICP wnl CN: pupils 2 mm equal. Motor: followed commands x 4 extremities (Gena Nowak) Exam The patient is alert, awake. Follows comands Cranial nerve examination: pupils to be equal, round and reactive to light. Extra-ocular movements are intact. Facial motor and sensory function are normal and symmetrical. Gross hearing appears intact. Sternocleidomastoid and trapezius muscles are symmetrical. Other cranial nerves are intact. Neck is soft and supple with a good range of motion without pain. Muscle strength is normal in all muscle groups of both upper and lower extremities. Sensory examination is intact to light touch and pin prick in both the upper and lower extremities. Deep tendon reflexes are symmetrical in both upper and lower extremities. There is a bilateral plantar flexion response. Cerebellar examination is limited, unremarkable (Micah Hoff MD) Medications Current Medications Current Medications Medications (Trade) Dose Ordered Sig/Doris Route PRN Reason Start Time Stop Time Status Last Admin Dose Admin Ondansetron HCl (Zofran Inj) 4 mg Q6H PRN IV NAUSEA OR VOMITING 06/15/17 13:30 06/18/17 13:00 Miscellaneous Information 1 [id number] XX 06/15/17 13:30 Chlorhexidine Gluconate (Chlorhexidine 2% Cloth) Taper DAILY@04 TOP 06/16/17 04:00 06/12/18 03:59 07/01/17 04:00 Chlorhexidine Gluconate (Chlorhexidine 2% Cloth) 3 pack UNSCH PRN TOP HYGIENIC CARE 06/15/17 13:30 Senna/Docusate Sodium (Prabha-Colace) 1 tab BID PO 06/15/17 21:00 06/29/17 09:11 Magnesium Hydroxide (Milk Of Magnesia Liq) 30 ml Q12H PRN PO MILD - MODERATE CONSTIPATION 06/15/17 13:30 Hold Sennosides (Senokot) 17.2 mg Q12H PRN PO MODERATE - SEVERE CONSTIPATION 06/15/17 13:30 Hold Bisacodyl (Dulcolax Supp) 10 mg DAILY PRN RECTAL SEVERE CONSITIPATION 06/15/17 13:30 Lactulose (Lactulose Liq) 30 ml DAILY PRN PO SEVERE CONSITIPATION 06/15/17 13:30 Hold Labetalol HCl (Trandate Inj) 10 mg Q1H PRN IV PUSH SBP >160 06/15/17 13:30 07/01/17 00:29 Acetaminophen/ Hydrocodone Bitart 1 tab 1 tab Q4H PRN PO pain 1-5 06/16/17 11:30 06/30/17 04:04 Potassium Chloride 100 ml @ 50 mls/hr Q2H PRN IV For Potassium 2.8 - 3.2 mEq/L 06/18/17 05:30 07/02/17 08:57 Potassium Chloride (KCl 20 Meq Premix Inj) 100 ml @ 50 mls/hr Q2H PRN IV For Potassium 2.8 - 3.2 mEq/L 06/18/17 05:30 Potassium Bicarb/ Potassium Chloride 50 meq 50 meq UNSCH PRN PO For Potassium 3.3 - 3.5 mEq/L 06/18/17 05:30 06/20/17 17:59 Potassium Chloride 100 ml @ 25 mls/hr UNSCH PRN IV For Potassium 3.3 - 3.5 mEq/L 06/18/17 05:30 06/30/17 12:54 Potassium Chloride 100 ml @ 50 mls/hr Q2H PRN IV For Potassium 3.3 - 3.5 mEq/L 06/18/17 05:30 Magnesium Sulfate/ Sodium Chloride (Magnesium Sulfate Inj/NS Inj) 100 ml @ 50 mls/hr UNSCH PRN IV For Magnesium 0.9 - 1.1 mg/dL 06/18/17 05:30 Magnesium Oxide 800 mg 800 mg UNSCH PRN PO For Magnesium 1.2 - 1.6 mg/dL 06/18/17 05:30 Magnesium Sulfate/ Sodium Chloride (Magnesium Sulfate Inj/NS Inj) 100 ml @ 50 mls/hr UNSCH PRN IV For Magnesium 1.2 - 1.6 mg/dL 06/18/17 05:30 06/20/17 18:28 Potassium Phosphate 2000 mg 2,000 mg Q4H PRN PO For Phosphorus < 2.5 mg/dL 06/18/17 05:30 Sodium Phosphate/ Sodium Chloride (Sodium Phosphate Inj/NS 250 ml Inj) 250 ml @ 42 mls/hr UNSCH PRN IV For Phosphorus < 2.5 mg/dL 06/18/17 05:30 07/02/17 08:57 Potassium Phosphate 2000 mg 2,000 mg UNSCH PRN PO/TUBE SEE LABEL COMMENTS 06/18/17 05:30 Potassium Phosphate/Sodium Chloride (Potassium Phosphate Inj/NS 250 ml Inj) 260 ml @ 42 mls/hr UNSCH PRN IV SEE LABEL COMMENTS 06/18/17 05:30 Protein (Beneprotein Powder) 1 pack TID G-TUBE 06/19/17 13:00 07/03/17 09:11 Acetaminophen (Tylenol 650 Mg/ 20 ml Liq) 650 mg Q4H PRN PO Temp > 100.5 06/19/17 12:45 07/01/17 23:18 Terbutaline Sulfate (Brethine Inj) 1 mg UNSCH PRN SQ For Extravasation 06/20/17 17:30 Potassium Bicarb/ Potassium Chloride (K-Lyte Cl Eff) 25 meq Q12HR PO 06/21/17 10:00 07/03/17 09:05 Magnesium Oxide 400 mg 400 mg Q8HR PO 06/21/17 22:00 07/03/17 06:16 Metronidazole (Flagyl 500 Mg Inj) 100 ml @ 100 mls/hr Q8H IV 06/26/17 12:00 07/03/17 11:55 Nimodipine (Nimotop) 60 mg Q4HR PO 06/26/17 12:00 07/03/17 11:56 Vancomycin HCl (VANCOMYCIN for oral use only) 250 mg QID PO 06/28/17 09:00 07/03/17 09:05 Enoxaparin Sodium (Lovenox Inj) 40 mg Q24H SQ 06/28/17 14:00 07/02/17 13:42 Levetriacetam (Keppra Liq) 500 mg Q12HR NG 06/29/17 21:00 07/03/17 09:04 Sodium Chloride (Sodium Chloride) 1 gm Q6H OG-TUBE 06/30/17 17:00 07/03/17 11:54 Metoprolol Tartrate 12.5 mg 12.5 mg Q8H PO 07/01/17 17:00 07/03/17 09:07 Nicardipine HCl/ Sodium Chloride (Cardene Inj/NS 250 ml Inj) 260 ml @ 0 mls/hr TITRATE IV 07/01/17 09:45 Hydralazine HCl (Apresoline Inj) 10 mg Q4H PRN IV PUSH SBP >160 07/01/17 09:45 Miscellaneous (Pill Splitter) 1 ea UNSCH PRN OTHER SEE LABEL COMMENTS 07/01/17 09:45 Nystatin (Mycostatin Cream) 1 applic Q12HR TOPICAL 07/01/17 11:00 07/03/17 09:00 Pantoprazole Sodium 40 mg 40 mg Q24H IV PUSH 07/01/17 11:00 07/03/17 11:58 Cefepime HCl 2000 mg/Sodium Chloride 100 ml @ 200 mls/hr Q8H IV 07/01/17 12:00 07/03/17 11:55 Pharmacy Profile Note (Vancomycin Consult Pharmacy) 0 ml @ 0 mls/hr UNSCH OTHER 07/01/17 12:00 Fluconazole 100 mg 100 mg DAILY PO 07/01/17 14:00 07/03/17 09:11 Vancomycin HCl/ Sodium Chloride (Vancomycin Inj/ NS 250 ml Inj) 250 ml @ 250 mls/hr Q8H IV 07/03/17 11:00 07/03/17 11:49 Miscellaneous Information SPECIFIC LAB TO BE MADELINE... ONCE ONCE .XX 07/04/17 02:45 07/04/17 02:46 (Gena Nowak) Medical Decision Making MDM Remarks 57 y/o female with SAH from ruptured ACOM aneurysm s/p endovascular coiling 06/15 s/p placement of right ventriculostomy drain, stable ICPs, CSF appearing less bloody, challenging ventriculostomy drain (Gena Nowak) Plan Plan Remarks will rechallenge ventriculostomy drain, clamp EVD cont monitor ICPs, monitor neuro checks for MS changes f/u CT Head tomorrow may need HOSTED SERVICES ANALYST shunt if persistent ventriculomegaly (Gena Nowak) Attending Statement Continue neuro checks. Nimodipine, Keppra. Challenging her ventriculostomy. monitor for MS changes Follow up daily TCD's Pulmonary. Cont mechanical ventilation, aggressive pulmonary toilette, nasotracheal suction, and breathing treatments with nebulizers. Status post chest tube. Follow up chest xrays Daily PT and OT Nutrition. Oral diet Renal. Continue to monitor closely urine output, BUN and creatinine Endocrine. Continue to Monitor serial Acu checks and SSI as needed in detail ID Cdiff positive. Continue antibiotics. Continue Protonix for stress ulcer prophylaxis Continue Wade hose and SCD's for DVT prophylaxis. Lovenox (Micah Hoff MD) Gena Nowak Jul 03, 2017 13:28 Micah Hoff MD Jul 06, 2017 11:25
[2017-07-03] MEDS: ENOXAPARIN SODIUM 40 MG/0.4 ML SYRINGE SQ SCH (15:06)
--- NOTE | 2017-07-03 15:19 | HHI.CCPN ---
Subjective Remarks/Hospital Course 06/15: Acute SAH with a-com aneurysm. Coiled 06/15. 06/16: BP control acceptable. Severe headache, but she gets somnolent after minimal analgesia. Some nausea and vomiting. 06/17: BP control good. Mild permissive hypertension 150s. Persistent headache and anxiety. Patient requests nicoderm patch but I am concerned about promoting unnecessary vasospasm. 06/18: Sudden onset altered mental status. Patient complaining of head ache and turning in bed, somewhat decreased level of consciousness. Transcranial Doppler did not show vasospasm today morning. Continue permissive hypertension. Stat CT of the head and CT angiogram ordered and discussed with interventional radiology Dr. Sanderson. (Dr. Yen in [place]) 06/19: Blood pressure in good range.TCDs today. Start TFs. 06/20: TCD 06/19 showed increase in the degree of vasospasm on the left, and decrease in degree of vasospasm on the right since the prior exam from one day ago. Getting CTA brain today. Remains on vasopressin and Emil-Synephrine to maintain systolic blood pressure 160-180. EVD drained 182 mL in 24 hours, ICP well controlled. UO 7L in 24 hours 06/21: Remains extremely critical. Profound shock, on 4 pressors to maintain SBP >110. On norepinephrine, dopamine, Emil-Synephrine and vasopressin. Unable to obtain target systolic blood pressure more than 160. Patient was started on Zosyn yesterday added vancomycin today. Teixeira cultures sent stress dose hydrocortisone started. Start Ben-trac monitoring. UO >12 L in 24 hours, osmolality studies not consistent with DI joseph though partial DI is possible. Check urine sp gravity and osm again. and Start scheduled DDAVP is suggestive of DI. Family updated in detail 06/22: Overnight developed worsening hypoxemia, refractory to conventional ventilator modes. With PEEP of 12 and FiO2 100% saturation remained in low 80s. Dr. Rodriguez placed on BiLevel (APPV) with improvement in oxygen saturation 90 % and no CO2 retention. I evaluated the patient with bedside ultrasound which showed moderate to large bilateral pleural effusions. Changed mode to PCV to avoid pneumothorax while placing chest tube. After this I placed 10 [place] pigtail catheter on the right side with immediate drainage of total 900 mL clear pleural fluid. Postprocedure oxygen saturation improved to 100% immediately, I was able to reduce the Insp pressure to 30. I will proceed with L pigtail chest tube after CXR confirms no complications 06/23: Remains intubated heavily sedated. Oxygenation improved after bilateral pigtail chest tube placement yesterday. R drained 1.1L and L 0.9L. lowering doses of Levophed and vasopressin. Discontinue vasopressin today 06/24: Heavy sedation limiting neuro exam. Decreasing pressor requirement as patient is maintaining blood pressure. Urine output adequate. Sodium 158 discontinue 3% saline 06/25: Continues to have no evidence of vasospasm. Coming off pressors. Sedation held now. Sodium 155. Overall continues to be positive fluid balance. We'll give IV Bumex 2 mg 1 with potassium replacement and stop all IV fluids. target SBP 140-150 06/26: Patient examined of sedation. White count slightly going up C. difficile positive chest x-ray shows some edema will do repeat dose of Bumex. Systolic blood pressure 140-160 maintained on Cardene infusion 06/27: WBC improving. hemodynamically stable. Remains intubated and critically ill. Urine output excellent with Bumex yesterday. Will give additional dose of Bumex today. 06/28: Improving neuro exam. Today off sedation patient able to follow commands very weakly 4. Cleared for Lovenox by Dr. Hoff. Maintaining systolic blood pressure less than 160 without Cardene 06/29 Lethargic but follows commands with all extremities. Temp max 99.1. WBC 17.3 Back on cardene 3 mg/hr. 06/30 NSG challenging EVD to 20 cm. Perera was replaced earlier today due to occlusion. Now temp 101. CSF culture from 06/29 NGTD. Cultured blood and urine. On flagyl/vanc for C diff. Off cardene. She tolerated CPAP 15/5 all day yesterday. Tolerating 10/5, adjust to 5/5 now. She follows commands and is more consistent with following commands today than yesterday so seems to be improving. Still with eyes primarily shut but will open and track when stimulated. TCD neg for vasospasm 07/01 Continues to make neurologic improvement. More alert today with spontaneous eye opening, tracking, nodding to questions. Following commands by moving all extremities. Tolerated CPAP 5/5 for two hours yesterday. Placing on CPAP. Temp max 101.1. NSG clamping ventric. 07/02: no changes. remains off the vent with stable neuro exam which is intact. no complaints. head CT today with increase in ventricle size, EVD reopened. will need VPS. Subjective: 07/03: neuro exam stable. I discussed the care with Dr. Hoff and plan a second trial of clamp trial EVD and if she fails again, VPS on Wednesday. otherwise continues to improve. Objective Vital Signs Date Time Temp Pulse Resp B/P Pulse Ox O2 Delivery O2 Flow Rate FiO2 07/03/17 07:06 96 21 07/03/17 06:00 87 07/03/17 04:00 98.6 24 162/87 07/02/17 19:00 Room Air 07/02/17 08:05 2.00 Intake and Output 07/02/17 07/02/17 07/03/17 08:00 16:00 00:00 Intake Total 881 ml 1012 ml 645 ml Output Total 2460 ml 1340 ml 1275 ml Balance -1579 ml -328 ml -630 ml Result Diagram: 07/03/17 0500 07/03/17 0500 Other Results Microbiology Date/Time Procedure Status Source Growth 06/30/17 15:20 Gram Stain - Final Complete Sputum Endotracheal 06/30/17 15:20 Sputum Culture - Final Complete Sputum Endotracheal HEAVY GROWTH NORMAL RESPIRATORY ODELL 06/30/17 15:20 Urine Culture - Final Complete Urine Catheterized Urine Heidi Albicans Objective Remarks Gen: female sitting in bed, no acute distress. SKIN: Ecchymosis overlying left lateral thigh. Head: Atraumatic. EVD in place on Right + 10 cm, fluid noncloudy. ICP well controlled Neck: trachea midline. Lungs: CTA. unlabored. Heart: normal rate, regular, sinus by tele. No JVD. Abdomen: Soft, nondistended, no guarding. : Perera in place with yellow urine output. Extremities: Peripheral pulses are palpable. No significant peripheral edema. Neuro: Pupils are equal reactive. RASS 0. follows commands. 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 Plan for clamp trial again today and tomorrow, and if she fails, VPS on Wednesday. Plan: NEURO Extensive SAH secondary to ruptured ACOM aneurysm Left frontal intraparenchymal hemorrhage, with edema Mild Vasospasm, now resolved Possible partial DI-resolved - 5x4x3 mm ACOM aneurysm successfully treated with coil embolization. - Transcranial Doppler c/w vasospasm on the left side 06/19/17, stat CTA 06/20 no significant vasospasm. Since then serial TCD had been neg for vasospasm - CT head on 06/18/17 had shown left frontal vasogenic edema and intraparenchymal hemorrhage, rpt 06/21 unchanged - Systolic blood pressure target 140-160 - Continue Nimotop at 60 mg po q4. - On Keppra 500 q12 per tube. - Keep sodium normal. Continue sodium 1 gram tab per tube qid -Ventric reopened 07/02 due to hydrocephalus. set at [id number] - re-clamp EVD. CVS: Severe shock-now resolved Fluid overload, improved. - Off all pressors. - Echo EF 65-70% - Nimodipine 60 mg by mouth every 4 hours. - metoprolol 12.5 q8 hours. Labetalol/hydralazine prn SBP >160. RESP: Acute hypoxemic respiratory failure Bilateral pleural effusion HCAP - Intubated for airway protection 06/18/17, extubated 07/01. - S/p bilateral pigtail chest tubes with approximately 1 L each removed 06/22/17 , output declined L chest tube removed 06/29. R chest tube removed 06/30. -CXR 07/01 worsening LLL opacity concerning for HCAP. broadened abx 07/01 - DuoNeb every 6 hours and when necessary ventilator bundle. HOB elevated. - Discontinued stress dose steroids 06/26 GI: C. difficile diarrhea - Was JEvity 1.5 @ 40/hr with beneprotein per nutrition recs, now tolerating regular diet. IV Protonix -Speech eval - d/c dignishield. - C. difficile positive . On Flagyl IV, vancomycin by mouth. FEN/RENAL: Severe hypokalemia, resolved. Hypomagnesemia, resolved - Perera for accurate intake output. Perera was replaced 8/2 due to obstruction. - second trial of perera removal today. - Electrolyte replacement per protocol. ID/HEME: Staph aureus pneumonia C. difficile diarrhea - IV Flagyl started 06/26 #8. Vancomycin by mouth started 06/28 #6. -Has been on ancef for MSSA pneumonia. Clinically infiltrates had resolved and pt tolerating CPAP indicating clinical improvement. In view of this, watching off abx except those directed toward C diff. (had been on abx with MSSA coverage 06/20-06/29 #10). Having intermittent fevers and so ordered panculture 06/30. [place] may be central fevers vs superficial thrombophlebitis so, in view of clinical stability, have held off on restarting abx so as not to exacerbate C diff. However, now with fever 101 and new LLL infiltrate concerning for VAP. Discussed with Dr. Ascencion Guerra and she started on Cefepime and Vancomycin. Delay in treating pneumonia could sabotage efforts at liberation from mechanical ventilation so benefit of abx outweighs risk. CSF culture from 06/29 negative to date. Procalcitonin 0.25 on 06/28, repeat today 0.24 - Venous scan shows left basilic and right cephalic thrombus. Not a candidate for full anticoagulation. Continue on Lovenox 40 mg subcutaneous daily ENDO: Euglycemic Proph: - Lovenox 40 mg sq daily was started on 06/28/17 - SCDs. - Protonix 40 mg IV daily for stress ulcer prophylaxis. ACCESS: piv x 2. Overall impression: Extensive SAH associated with ACOM aneurysm, clinically starting to improve. PT consult. likely needs VPS. Frank Meza MD Jul 03, 2017 15:19
[2017-07-03] MEDS: ACETAMINOPHEN 650 MG/20.3 ML UDC PO PRN (17:10)
[2017-07-04] VITALS (14 sets, daily range): BP systolic 140–167; BP diastolic 65–103; PULSE 76–108; RESP 20–28; TEMP 98.6–98.9; O2SAT 94–100
[2017-07-04] MEDS: niMODipine 30 MG CAP PO SCH ×6 (00:55→20:00)
[2017-07-04] MEDS: SODIUM CHLORIDE 1 GRAM TAB OG-TUBE SCH ×5 (00:55→22:47)
[2017-07-04] MEDS: METOPROLOL TARTRATE 25 MG TAB PO SCH ×3 (01:54→16:58)
[2017-07-04] MEDS ORDERED: PHARMACY ORDERED LAB ONE (02:45)
[2017-07-04] MEDS: metroNIDAZOLE 500 MG INJ 100 ML IV SCH ×3 (04:10→20:00)
[2017-07-04] MEDS: CEFEPIME INJ 2,000 MG in SODIUM CHLORIDE 0.9% INJ 100 ML IV SCH ×2 (04:11→13:43)
[2017-07-04] MEDS: VANCOMYCIN 1,000 MG/NS 250 ML IV SCH ×6 (05:27→18:05)
[2017-07-04] MEDS: MAGNESIUM OXIDE 400 MG TAB PO SCH ×3 (05:27→22:00)
[2017-07-04 06:02] LABS: HEMATOCRIT 29.9 % (35.0-46.0); MEAN CELL VOLUME 90.8 FL (80.0-100.0); MEAN CORPUSCULAR HEMOGLOBIN 31.7 PG (27.0-34.0); PLATELET COUNT 636 TH/MM3 (150-450); RED BLOOD COUNT 3.29 MIL/MM3 (4.00-5.30); RED CELL DISTRIBUTION WIDTH 14.4 % (11.6-17.2); REVIEW FLAG FINAL; WHITE BLOOD COUNT 10.9 TH/MM3 (4.0-11.0)
--- NOTE | 2017-07-04 06:03 | RADRPT ---
EXAM DATE/TIME: 07/04/2017 04:49 [facility] COMPARISON: CT BRAIN W/O CONTRAST, July 02, 2017, 4:17. INDICATIONS : Hydrocephalus. RADIATION DOSE: 29.91 CTDIvol (mGy) MEDICAL HISTORY : Hypertension. SURGICAL HISTORY : Tubal ligation. ENCOUNTER: Subsequent ACUITY: 3 weeks PAIN SCALE: Non-responsive LOCATION: cranial TECHNIQUE: Multiple contiguous axial images were obtained of the head. Using automated exposure control and adj ustment of the mA and/or kV according to patient size, radiation dose was kept as low as reasonably a chievable to obtain optimal diagnostic quality images. DICOM format image data is available electro nically for review and comparison. FINDINGS: No acute intracranial hemorrhage is identified. Ventriculostomy remains in place with its tip in the frontal horn. Ventricular size is unchanged. There is decreasing subarachnoid hemorrhage. No acute he matoma is identified. Posterior fossa structures are unremarkable. CONCLUSION: 1. No evidence of acute intracranial pathology. No masses are identified. 2. Decreasing subarachnoid hemorrhage 3. Stable ventricular size Mp Hassan MD on July 04, 2017 at 5:59 Board Certified Radiologist. This report was verified electronically.
[2017-07-04 06:30] LABS: BICARBONATE 25.6 MEQ/L (21.0-32.0)
[2017-07-04 06:34] LABS: POTASSIUM 2.9 MEQ/L (3.5-5.1)
[2017-07-04] MEDS: POTASSIUM CHLOR 20 MEQ PREMIX 100 ML IV PRN (06:51)
[2017-07-04] MEDS: levETIRAcetam 500 MG/5 ML UDC NG SCH ×2 (08:14→21:00)
[2017-07-04] MEDS: FLUCONAZOLE 100 MG TAB PO SCH (08:15)
[2017-07-04] MEDS: DOCUSATE SODIUM 50 MG/SENNA 8.6 MG TAB PO SCH ×2 (08:17→21:00)
[2017-07-04] MEDS: BENEPROTEIN POWDER 1 PACK G-TUBE SCH ×3 (08:21→16:58)
[2017-07-04] MEDS: VANCOMYCIN 500 MG VIAL (FOR ORAL USE ONLY) PO SCH ×4 (08:22→21:00)
[2017-07-04] MEDS: POTASSIUM CHLORIDE 25 MEQ EFFERVESCENT TAB PO SCH ×2 (08:22→21:00)
[2017-07-04] MEDS: NYSTATIN 100,000 UNIT/GM CREAM 15 GM TOPICAL SCH ×2 (08:22→21:00)
--- NOTE | 2017-07-04 09:51 | HHI.CCPN ---
Subjective Remarks/Hospital Course 06/15: Acute SAH with a-com aneurysm. Coiled 06/15. 06/16: BP control acceptable. Severe headache, but she gets somnolent after minimal analgesia. Some nausea and vomiting. 06/17: BP control good. Mild permissive hypertension 150s. Persistent headache and anxiety. Patient requests nicoderm patch but I am concerned about promoting unnecessary vasospasm. 06/18: Sudden onset altered mental status. Patient complaining of head ache and turning in bed, somewhat decreased level of consciousness. Transcranial Doppler did not show vasospasm today morning. Continue permissive hypertension. Stat CT of the head and CT angiogram ordered and discussed with interventional radiology Dr. Sanderson. (Dr. Yen in [place]) 06/19: Blood pressure in good range.TCDs today. Start TFs. 06/20: TCD 06/19 showed increase in the degree of vasospasm on the left, and decrease in degree of vasospasm on the right since the prior exam from one day ago. Getting CTA brain today. Remains on vasopressin and Emil-Synephrine to maintain systolic blood pressure 160-180. EVD drained 182 mL in 24 hours, ICP well controlled. UO 7L in 24 hours 06/21: Remains extremely critical. Profound shock, on 4 pressors to maintain SBP >110. On norepinephrine, dopamine, Emil-Synephrine and vasopressin. Unable to obtain target systolic blood pressure more than 160. Patient was started on Zosyn yesterday added vancomycin today. Teixeira cultures sent stress dose hydrocortisone started. Start Ben-trac monitoring. UO >12 L in 24 hours, osmolality studies not consistent with DI joseph though partial DI is possible. Check urine sp gravity and osm again. and Start scheduled DDAVP is suggestive of DI. Family updated in detail 06/22: Overnight developed worsening hypoxemia, refractory to conventional ventilator modes. With PEEP of 12 and FiO2 100% saturation remained in low 80s. Dr. Rodriguez placed on BiLevel (APPV) with improvement in oxygen saturation 90 % and no CO2 retention. I evaluated the patient with bedside ultrasound which showed moderate to large bilateral pleural effusions. Changed mode to PCV to avoid pneumothorax while placing chest tube. After this I placed 10 [place] pigtail catheter on the right side with immediate drainage of total 900 mL clear pleural fluid. Postprocedure oxygen saturation improved to 100% immediately, I was able to reduce the Insp pressure to 30. I will proceed with L pigtail chest tube after CXR confirms no complications 06/23: Remains intubated heavily sedated. Oxygenation improved after bilateral pigtail chest tube placement yesterday. R drained 1.1L and L 0.9L. lowering doses of Levophed and vasopressin. Discontinue vasopressin today 06/24: Heavy sedation limiting neuro exam. Decreasing pressor requirement as patient is maintaining blood pressure. Urine output adequate. Sodium 158 discontinue 3% saline 06/25: Continues to have no evidence of vasospasm. Coming off pressors. Sedation held now. Sodium 155. Overall continues to be positive fluid balance. We'll give IV Bumex 2 mg 1 with potassium replacement and stop all IV fluids. target SBP 140-150 06/26: Patient examined of sedation. White count slightly going up C. difficile positive chest x-ray shows some edema will do repeat dose of Bumex. Systolic blood pressure 140-160 maintained on Cardene infusion 06/27: WBC improving. hemodynamically stable. Remains intubated and critically ill. Urine output excellent with Bumex yesterday. Will give additional dose of Bumex today. 06/28: Improving neuro exam. Today off sedation patient able to follow commands very weakly 4. Cleared for Lovenox by Dr. Hoff. Maintaining systolic blood pressure less than 160 without Cardene 06/29 Lethargic but follows commands with all extremities. Temp max 99.1. WBC 17.3 Back on cardene 3 mg/hr. 06/30 NSG challenging EVD to 20 cm. Sneed was replaced earlier today due to occlusion. Now temp 101. CSF culture from 06/29 NGTD. Cultured blood and urine. On flagyl/vanc for C diff. Off cardene. She tolerated CPAP 15/5 all day yesterday. Tolerating 10/5, adjust to 5/5 now. She follows commands and is more consistent with following commands today than yesterday so seems to be improving. Still with eyes primarily shut but will open and track when stimulated. TCD neg for vasospasm 07/01 Continues to make neurologic improvement. More alert today with spontaneous eye opening, tracking, nodding to questions. Following commands by moving all extremities. Tolerated CPAP 5/5 for two hours yesterday. Placing on CPAP. Temp max 101.1. NSG clamping ventric. 07/02: no changes. remains off the vent with stable neuro exam which is intact. no complaints. head CT today with increase in ventricle size, EVD reopened. will need VPS. 07/03: neuro exam stable. I discussed the care with Dr. Hoff and plan a second trial of clamp trial EVD and if she fails again, VPS on Wednesday. otherwise continues to improve. Subjective: 07/04: neuro exam stable. VPS clamped x 24h. radiology read on CT head without change in ventricle size. neurosurgery to evaluate CT head. diarrhea is worsening despite IV flagyl and PO vanc. will need to re-insert rectal tube. Objective Vital Signs Date Time Temp Pulse Resp B/P Pulse Ox O2 Delivery O2 Flow Rate FiO2 07/04/17 09:05 97 21 07/04/17 06:00 96 07/04/17 04:00 98.8 28 165/80 07/03/17 19:00 Room Air 07/02/17 08:05 2.00 Intake and Output 07/03/17 07/03/17 07/04/17 08:00 16:00 00:00 Intake Total 859 ml 604 ml 664 ml Output Total 2040 ml 2021 ml Balance -1181 ml -1417 ml 664 ml Result Diagram: 07/04/1730 07/04/17 0530 Objective Remarks Gen: female sitting in bed, no acute distress. SKIN: Ecchymosis overlying left lateral thigh. Head: Atraumatic. EVD in place on Right + 10 cm, fluid noncloudy. ICP well controlled Neck: trachea midline. Lungs: CTA. unlabored. Heart: normal rate, regular, sinus by tele. No JVD. Abdomen: Soft, nondistended, no guarding. : Sneed in place with yellow urine output. Extremities: Peripheral pulses are palpable. No significant peripheral edema. Neuro: Pupils are equal reactive. RASS 0. follows commands. 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 Per neurosurgery, continue EVD clamped, NPO at IA for possible VPS in AM. Unclear risk/benefit of VPS vs. EVD with C. Diff. Both are infectious risks. patient has been on C Diff therapy x 8 days. will ask ID opinion. Plan: NEURO Extensive SAH secondary to ruptured ACOM aneurysm Left frontal intraparenchymal hemorrhage, with edema Mild Vasospasm, now resolved - 5x4x3 mm ACOM aneurysm successfully treated with coil embolization. - Transcranial Doppler c/w vasospasm on the left side 06/19/17, stat CTA 06/20 no significant vasospasm. Since then serial TCD had been neg for vasospasm - CT head on 06/18/17 had shown left frontal vasogenic edema and intraparenchymal hemorrhage, rpt 06/21 unchanged - Systolic blood pressure target 140-160 - Continue Nimotop at 60 mg po q4. - On Keppra 500 q12 per tube. - Keep sodium normal. Continue sodium 1 gram tab per tube qid -Ventric reopened 07/02 due to hydrocephalus. re-clamped 07/03. - CT head 07/03 no change. CVS: Severe shock-now resolved Fluid overload, improved. - Off all pressors. - Echo EF 65-70% - Nimodipine 60 mg by mouth every 4 hours. - metoprolol 12.5 q8 hours. Labetalol/hydralazine prn SBP >160. RESP: Acute hypoxemic respiratory failure Bilateral pleural effusion HCAP - Intubated for airway protection 06/18/17, extubated 07/01. - S/p bilateral pigtail chest tubes with approximately 1 L each removed 06/22/17 , output declined L chest tube removed 06/29. R chest tube removed 06/30. -CXR 07/01 worsening LLL opacity concerning for HCAP. broadened abx 07/01 - DuoNeb every 6 hours and when necessary ventilator bundle. HOB elevated. - Discontinued stress dose steroids 06/26 GI: C. difficile diarrhea - Was JEvity 1.5 @ 40/hr with beneprotein per nutrition recs, now tolerating regular diet. IV Protonix -Speech eval - replace dignishield as skin is starting to breakdown and still with copious diarrhea. - C. difficile positive . On Flagyl IV, vancomycin by mouth. FEN/RENAL: Severe hypokalemia, resolved. Hypomagnesemia, resolved - Sneed for accurate intake output. Sneed was replaced 06/30 due to obstruction. - Sneed d/c'd 07/03. - Electrolyte replacement per protocol. ID/HEME: Staph aureus pneumonia C. difficile diarrhea - IV Flagyl started 06/26 #9. Vancomycin by mouth started 06/28 #7. -treated for MSSA pneumonia 06/20 - 06/29. CSF culture from 06/29 negative to date. Procalcitonin 0.25 on 06/28, repeat 07/02 0.24 - Venous scan shows left basilic and right cephalic thrombus. Not a candidate for full anticoagulation. Continue on Lovenox 40 mg subcutaneous daily ENDO: Euglycemic Proph: - Lovenox 40 mg sq daily was started on 06/28/17 - SCDs. - Protonix 40 mg IV daily for stress ulcer prophylaxis. ACCESS: piv x 2. Overall impression: Extensive SAH associated with ACOM aneurysm, clinically starting to improve. PT consult. likely needs VPS. Frank Meza MD Jul 04, 2017 09:51
--- NOTE | 2017-07-04 11:02 | HHI.NSPN ---
(Gena Nowak) Note Status Status: Progress Note (Gena Nowak) Interval History Interval History 57-year-old female admitted 06/15/17 with acute onset severe headache. 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 06/15/17 endovascular coiling of aneurysm. 06/18/17 patient with increasing confusion, new left frontal interparenchymal hemorrhage with surrounding edema on follow-up CT scan. Patient intubated for airway control. Ventriculostomy placed. 06/20/17: Remains intubated, mechanical ventilation, intravenous sedation. 06/21/17: possible septic shock, on multiple pressors. EVD draining well, bloody CSF, ICP wnl. f/u CTA Head yesterday neg for vasospasm. TCDs this morning pending. Sedation turned off 30 mins ago when rounded, no eye opening, not following commands, no withdrawals to extremities. 06/23/17: pressors being weaned off, s/p chest tube placement for severe pleural effusions. ICPs remains wnl. EVD draining well. Remains sedated. TCD this am. 06/28/17: per nursing report neuro checks improving, patient opening eyes and starting to follow commands. EVD continues to drain well, stable ICPs. 06/30/17: challenging ventriculostomy drain, CSF is clearing up, 07/02/17: EVD clamped yesterday morning, f/u CT Head this am completed 07/03/17: family would like to rechallenge EVD prior to TUBE WASHER shunt 07/04/17: f/u CT Head completed, ICPs stable overnight, neuro exam unchanged. patient positive for C. Dif and with multiple loose stools (Gena Nowak) Labs, Micro, & Vital Signs Results Date Time Temp Pulse Resp B/P Pulse Ox O2 Delivery O2 Flow Rate FiO2 07/04/17 09:05 97 21 07/04/17 06:00 96 07/04/17 04:00 98.8 100 28 165/80 94 07/04/17 04:00 100 07/04/17 02:00 108 07/04/17 00:00 98.8 96 23 147/78 100 07/04/17 00:00 96 07/03/17 22:00 98 07/03/17 20:27 100 21 07/03/17 20:00 68 07/03/17 20:00 98.5 68 22 145/76 100 07/03/17 19:00 100 Room Air 07/03/17 18:00 85 07/03/17 16:00 99.8 76 21 156/74 100 07/03/17 16:00 76 07/03/17 14:00 86 07/03/17 12:00 84 07/03/17 12:00 98.9 84 23 140/70 100 07/04/17 07:00 Intake Total 1637 ml Output Total 2021 ml Balance -384 ml Constitutional Vital Signs Date Time Temp Pulse Resp B/P Pulse Ox O2 Delivery O2 Flow Rate FiO2 07/04/17 09:05 97 21 07/04/17 06:00 96 07/04/17 04:00 98.8 100 28 165/80 94 07/04/17 04:00 100 07/04/17 02:00 108 07/04/17 00:00 98.8 96 23 147/78 100 07/04/17 00:00 96 07/03/17 22:00 98 07/03/17 20:27 100 21 07/03/17 20:00 68 07/03/17 20:00 98.5 68 22 145/76 100 07/03/17 19:00 100 Room Air 07/03/17 18:00 85 07/03/17 16:00 99.8 76 21 156/74 100 07/03/17 16:00 76 07/03/17 14:00 86 07/03/17 12:00 84 07/03/17 12:00 98.9 84 23 140/70 100 07/04/17 07:00 Intake Total 1637 ml Output Total 2021 ml Balance -384 ml (Gena Nowak) Review of Systems/Exam Exam Awake. Nods appropriately. Ventriculostomy drain secured in place open at 10 cm H20, ICP wnl CN: pupils 2 mm equal. Motor: followed commands x 4 extremities (Gena Nowak) Exam The patient is alert, awake. Ventriculostomy in place Cranial nerve examination: pupils to be equal, round and reactive to light. Extra-ocular movements are intact. Facial motor and sensory function are normal and symmetrical. Gross hearing appears intact. Sternocleidomastoid and trapezius muscles are symmetrical. Other cranial nerves are intact. Neck is soft and supple with a good range of motion without pain. Muscle strength is normal in all muscle groups of both upper and lower extremities. Sensory examination is intact to light touch and pin prick in both the upper and lower extremities. Deep tendon reflexes are symmetrical in both upper and lower extremities. There is a bilateral plantar flexion response. Cerebellar examination is unremarkable (Micah Hoff MD) Medications Current Medications Current Medications Medications (Trade) Dose Ordered Sig/Doris Route PRN Reason Start Time Stop Time Status Last Admin Dose Admin Ondansetron HCl (Zofran Inj) 4 mg Q6H PRN IV NAUSEA OR VOMITING 06/15/17 13:30 06/18/17 13:00 Miscellaneous Information 1 Q361D XX 06/15/17 13:30 Chlorhexidine Gluconate (Chlorhexidine 2% Cloth) Taper DAILY@04 TOP 06/16/17 04:00 06/12/18 03:59 07/01/17 04:00 Chlorhexidine Gluconate (Chlorhexidine 2% Cloth) 3 pack UNSCH PRN TOP HYGIENIC CARE 06/15/17 13:30 Senna/Docusate Sodium (Prabha-Colace) 1 tab BID PO 06/15/17 21:00 06/29/17 09:11 Magnesium Hydroxide (Milk Of Magnesia Liq) 30 ml Q12H PRN PO MILD - MODERATE CONSTIPATION 06/15/17 13:30 Hold Sennosides (Senokot) 17.2 mg Q12H PRN PO MODERATE - SEVERE CONSTIPATION 06/15/17 13:30 Hold Bisacodyl (Dulcolax Supp) 10 mg DAILY PRN RECTAL SEVERE CONSITIPATION 06/15/17 13:30 Lactulose (Lactulose Liq) 30 ml DAILY PRN PO SEVERE CONSITIPATION 06/15/17 13:30 Hold Labetalol HCl (Trandate Inj) 10 mg Q1H PRN IV PUSH SBP >160 06/15/17 13:30 07/01/17 00:29 Acetaminophen/ Hydrocodone Bitart 1 tab 1 tab Q4H PRN PO pain 1-5 06/16/17 11:30 06/30/17 04:04 Potassium Chloride 100 ml @ 50 mls/hr Q2H PRN IV For Potassium 2.8 - 3.2 mEq/L 06/18/17 05:30 07/02/17 08:57 Potassium Chloride (KCl 20 Meq Premix Inj) 100 ml @ 50 mls/hr Q2H PRN IV For Potassium 2.8 - 3.2 mEq/L 06/18/17 05:30 07/04/17 06:51 Potassium Bicarb/ Potassium Chloride 50 meq 50 meq UNSCH PRN PO For Potassium 3.3 - 3.5 mEq/L 06/18/17 05:30 06/20/17 17:59 Potassium Chloride 100 ml @ 25 mls/hr UNSCH PRN IV For Potassium 3.3 - 3.5 mEq/L 06/18/17 05:30 06/30/17 12:54 Potassium Chloride 100 ml @ 50 mls/hr Q2H PRN IV For Potassium 3.3 - 3.5 mEq/L 06/18/17 05:30 Magnesium Sulfate/ Sodium Chloride (Magnesium Sulfate Inj/NS Inj) 100 ml @ 50 mls/hr UNSCH PRN IV For Magnesium 0.9 - 1.1 mg/dL 06/18/17 05:30 Magnesium Oxide 800 mg 800 mg UNSCH PRN PO For Magnesium 1.2 - 1.6 mg/dL 06/18/17 05:30 Magnesium Sulfate/ Sodium Chloride (Magnesium Sulfate Inj/NS Inj) 100 ml @ 50 mls/hr UNSCH PRN IV For Magnesium 1.2 - 1.6 mg/dL 06/18/17 05:30 06/20/17 18:28 Potassium Phosphate 2000 mg 2,000 mg Q4H PRN PO For Phosphorus < 2.5 mg/dL 06/18/17 05:30 Sodium Phosphate/ Sodium Chloride (Sodium Phosphate Inj/NS 250 ml Inj) 250 ml @ 42 mls/hr UNSCH PRN IV For Phosphorus < 2.5 mg/dL 06/18/17 05:30 07/02/17 08:57 Potassium Phosphate 2000 mg 2,000 mg UNSCH PRN PO/TUBE SEE LABEL COMMENTS 06/18/17 05:30 Potassium Phosphate/Sodium Chloride (Potassium Phosphate Inj/NS 250 ml Inj) 260 ml @ 42 mls/hr UNSCH PRN IV SEE LABEL COMMENTS 06/18/17 05:30 Protein (Beneprotein Powder) 1 pack TID G-TUBE 06/19/17 13:00 07/04/17 08:21 Acetaminophen (Tylenol 650 Mg/ 20 ml Liq) 650 mg Q4H PRN PO Temp > 100.5 06/19/17 12:45 07/03/17 17:10 Terbutaline Sulfate (Brethine Inj) 1 mg UNSCH PRN SQ For Extravasation 06/20/17 17:30 Potassium Bicarb/ Potassium Chloride (K-Lyte Cl Eff) 25 meq Q12HR PO 06/21/17 10:00 07/04/17 08:22 Magnesium Oxide 400 mg 400 mg Q8HR PO 06/21/17 22:00 07/04/17 05:27 Metronidazole (Flagyl 500 Mg Inj) 100 ml @ 100 mls/hr Q8H IV 06/26/17 12:00 07/04/17 04:10 Nimodipine (Nimotop) 60 mg Q4HR PO 06/26/17 12:00 07/04/17 08:15 Vancomycin HCl (VANCOMYCIN for oral use only) 250 mg QID PO 06/28/17 09:00 07/04/17 08:22 Enoxaparin Sodium (Lovenox Inj) 40 mg Q24H SQ 06/28/17 14:00 07/03/17 15:06 Levetriacetam (Keppra Liq) 500 mg Q12HR NG 06/29/17 21:00 07/04/17 08:14 Sodium Chloride (Sodium Chloride) 1 gm Q6H OG-TUBE 06/30/17 17:00 07/04/17 05:27 Metoprolol Tartrate 12.5 mg 12.5 mg Q8H PO 07/01/17 17:00 07/04/17 08:16 Nicardipine HCl/ Sodium Chloride (Cardene Inj/NS 250 ml Inj) 260 ml @ 0 mls/hr TITRATE IV 07/01/17 09:45 Hydralazine HCl (Apresoline Inj) 10 mg Q4H PRN IV PUSH SBP >160 07/01/17 09:45 Miscellaneous (Pill Splitter) 1 ea UNSCH PRN OTHER SEE LABEL COMMENTS 07/01/17 09:45 Nystatin (Mycostatin Cream) 1 applic Q12HR TOPICAL 07/01/17 11:00 07/04/17 08:22 Pantoprazole Sodium 40 mg 40 mg Q24H IV PUSH 07/01/17 11:00 07/03/17 11:58 Cefepime HCl 2000 mg/Sodium Chloride 100 ml @ 200 mls/hr Q8H IV 07/01/17 12:00 07/04/17 04:11 Pharmacy Profile Note (Vancomycin Consult Pharmacy) 0 ml @ 0 mls/hr UNSCH OTHER 07/01/17 12:00 Fluconazole 100 mg 100 mg DAILY PO 07/01/17 14:00 07/04/17 08:15 Vancomycin HCl/ Sodium Chloride (Vancomycin Inj/ NS 250 ml Inj) 250 ml @ 250 mls/hr Q8H IV 07/03/17 11:00 07/04/17 05:27 Miscellaneous Information SPECIFIC LAB TO BE DRAWN:VANCOMYCIN TROUGH DATE TO... ONCE ONCE .XX 07/05/17 10:45 07/05/17 10:46 (Gena Nowak) Medical Decision Making MDM Remarks 57 y/o female with SAH from ruptured ACOM aneurysm s/p endovascular coiling 06/15 s/p placement of right ventriculostomy drain, stable ICPs, CSF appearing less bloody, f/u CT Head 07/02 with evidence of enlarged ventricles following clamping compared to previous CT, rechallenged EVD with stable CT Head 07/04/17 C. Diff Colitis (Gena Nowak) Plan Plan Remarks dw family in room regarding f/u CT Head today pt remains neurologically stable following EVD clamping, will cont observe with EVD clamped today, if patient tolerates, may discontinue ventriculostomy draining if not, will plan for TUBE WASHER shunt once ok'ed by ID (Gena Nowak) Attending Statement Continue neuro checks. Nimodipine, Keppra. Challenging her ventriculostomy. Will reclamp drain today Follow up daily TCD's Pulmonary. Cont mechanical ventilation, aggressive pulmonary toilette, nasotracheal suction, and breathing treatments with nebulizers. Status post chest tube. Follow up chest xrays Daily PT and OT Nutrition. Oral diet Renal. Continue to monitor closely urine output, BUN and creatinine Endocrine. Continue to Monitor serial Acu checks and SSI as needed in detail ID Cdiff positive. Continue antibiotics. Continue Protonix for stress ulcer prophylaxis Continue Wade hose and SCD's for DVT prophylaxis. Lovenox The exam, history, and the medical decision-making described in the above note were completed with the assistance of the mid-level provider. I reviewed and agree with the findings presented. I attest that I had a [id number] encounter with the patient on the same day, and personally performed and documented my assessment and findings in the medical record. (Micah Hoff MD) Gena Nowak Jul 04, 2017 11:02 Micah Hoff MD Jul 06, 2017 11:21
[2017-07-04] MEDS: PANTOPRAZOLE SODIUM 40 MG VIAL IV PUSH SCH (13:42)
[2017-07-04] MEDS: ENOXAPARIN SODIUM 40 MG/0.4 ML SYRINGE SQ SCH (14:17)
--- NOTE | 2017-07-04 16:32 | HHI.IDPN ---
Note Infectious Disease Note ID coverage Notes reviewed. Patient off the vent. Awake and responsive. Afebrile. Ms. Nevarez is a 57-year-old female with past medical history significant for hypertension with SAH, acute VDRF,on vent developed MSSA PNA, Antibiotics Cefepime IV Flagyl oral Vanco IV and oral Lines Line sites with no e.o infection. Past Medical History Hypertension Tubal ligation Coiling of the aneurysm this admission. External ventricular device placement. Allergies: Coded Allergies: No Known Allergies (Verified , 02/25/16) OBJECTIVE: Vital Signs Date Time Temp Pulse Resp B/P Pulse Ox O2 Delivery O2 Flow Rate FiO2 07/04/17 12:00 76 07/04/17 10:00 88 07/04/17 09:05 97 21 07/04/17 08:00 86 07/04/17 07:00 97 Room Air 07/04/17 06:00 96 07/04/17 04:00 98.8 100 28 165/80 94 07/04/17 04:00 100 07/04/17 02:00 108 07/04/17 00:00 98.8 96 23 147/78 100 07/04/17 00:00 96 07/03/17 22:00 98 07/03/17 20:27 100 21 07/03/17 20:00 68 07/03/17 20:00 98.5 68 22 145/76 100 07/03/17 19:00 100 Room Air 07/03/17 18:00 85 07/03/17 07/03/17 07/04/17 14:59 22:59 06:59 Intake Total 604 ml 664 ml 369 ml Output Total 2021 ml Balance -1417 ml 664 ml 369 ml Intake Oral 240 ml 120 ml IV Total 364 ml 544 ml 369 ml Output Urine Total 2000 ml Drainage Total 21 ml # Voids 3 # Bowel Movements 3 3 Laboratory Tests Test 07/03/17 07/04/17 05:00 05:30 White Blood Count 10.8 TH/MM3 10.9 TH/MM3 Red Blood Count 3.16 MIL/MM3 3.29 MIL/MM3 Hemoglobin 9.9 GM/DL 10.4 GM/DL Hematocrit 28.7 % 29.9 % Mean Corpuscular Volume 91.0 FL 90.8 FL Mean Corpuscular Hemoglobin 31.5 PG 31.7 PG Mean Corpuscular Hemoglobin 34.6 % 35.0 % Concent Red Cell Distribution Width 14.6 % 14.4 % Platelet Count 507 TH/MM3 636 TH/MM3 Mean Platelet Volume 8.6 FL 8.2 FL Laboratory Tests Test 07/03/17 07/03/17 07/04/17 02:13 05:00 05:30 Potassium Level 3.4 MEQ/L 3.3 MEQ/L 2.9 MEQ/L Phosphorus Level 2.1 MG/DL Sodium Level 139 MEQ/L 137 MEQ/L Chloride Level 109 MEQ/L 101 MEQ/L Carbon Dioxide Level 23.0 MEQ/L 25.6 MEQ/L Anion Gap 7 MEQ/L 10 MEQ/L Blood Urea Nitrogen 11 MG/DL 12 MG/DL Creatinine 0.23 MG/DL 0.31 MG/DL Estimat Glomerular Filtration 309 ML/MIN 219 ML/MIN Rate Random Glucose 84 MG/DL 117 MG/DL Calcium Level 6.6 MG/DL 8.7 MG/DL Protein Corrected Calcium 7.7 MG/DL Total Protein 5.0 GM/DL Imaging Head CT 07/04/17 0600 Signed Impressions: Service Date/Time: Tuesday, July 04, 2017 04:49 - CONCLUSION: 1. No evidence of acute intracranial pathology. No masses are identified. 2. Decreasing subarachnoid hemorrhage 3. Stable ventricular size Mp Hassan MD Physical Exam GENERAL: Patient is alert. SKIN: No rash. HEENT: EOMI, VERN. No icterus. NECK: Supple no adenopathy. CHEST: Clear breath sounds. CARDIAC. Nl S12S. No murmur. ABDOMEN: Soft, non tender. EXTREMITIES: No CCE. Assessment & Plan Remarks Sepsis ? New HCAP. New infiltrate, new fevers, elevated WBC. Aspiration Pneumonia on admission. MSSA Cdiff positive diarrhea C.albicans UTI. Sneed changed when pt had fevers. Acute resp failure. Acute encephalopathy: Acute SAH, metabolic, infection. Acute SAH s/p aneurysm coiling. Staph epi low grade bacteremia, doubt clin significance Fever: Leukocytosis improved. Appears to be stable. Recs: Stop Cefepime IV continue Vanco IV (15-20 target) Continue Flagyl IV Oral vanco for Cdiff. Continue Diflucan. Follow clinically. Winston Sheldon MD Jul 04, 2017 16:32
[2017-07-05] VITALS (14 sets, daily range): BP systolic 122–166; BP diastolic 66–82; PULSE 67–108; RESP 18–26; TEMP 98.2–99.9; O2SAT 94–98
[2017-07-05] MEDS: niMODipine 30 MG CAP PO SCH ×7 (01:24→20:50)
[2017-07-05] MEDS: METOPROLOL TARTRATE 25 MG TAB PO SCH ×4 (01:25→18:02)
[2017-07-05] MEDS: CHLORHEXIDINE GLUCONATE 2 % 1 PACK (2 CLOTHS) TOP SCH (02:11)
[2017-07-05] MEDS: VANCOMYCIN 1,000 MG/NS 250 ML IV SCH ×6 (02:15→18:01)
[2017-07-05] MEDS: metroNIDAZOLE 500 MG INJ 100 ML IV SCH ×3 (05:00→20:49)
[2017-07-05] MEDS: SODIUM CHLORIDE 1 GRAM TAB OG-TUBE SCH ×4 (05:01→22:44)
[2017-07-05] MEDS: MAGNESIUM OXIDE 400 MG TAB PO SCH ×3 (05:01→20:51)
[2017-07-05 06:24] LABS: BICARBONATE 23.9 MEQ/L (21.0-32.0); POTASSIUM 4.5 MEQ/L (3.5-5.1)
[2017-07-05] MEDS: BENEPROTEIN POWDER 1 PACK G-TUBE SCH ×3 (08:38→17:45)
[2017-07-05] MEDS: VANCOMYCIN 500 MG VIAL (FOR ORAL USE ONLY) PO SCH ×5 (08:38→20:51)
[2017-07-05] MEDS: levETIRAcetam 500 MG/5 ML UDC NG SCH ×2 (08:38→20:50)
[2017-07-05] MEDS: NYSTATIN 100,000 UNIT/GM CREAM 15 GM TOPICAL SCH ×2 (08:39→20:51)
[2017-07-05] MEDS: POTASSIUM CHLORIDE 25 MEQ EFFERVESCENT TAB PO SCH ×2 (08:39→20:50)
[2017-07-05] MEDS: DOCUSATE SODIUM 50 MG/SENNA 8.6 MG TAB PO SCH ×2 (08:39→20:50)
[2017-07-05] MEDS: FLUCONAZOLE 100 MG TAB PO SCH (08:40)
[2017-07-05] MEDS ORDERED: PHARMACY ORDERED LAB ONE (10:45)
[2017-07-05 10:57] LABS: MEAN CORPUSCULAR HEMOGLOBIN 30.8 PG (27.0-34.0); MEAN CORPUSCULAR HGB CONC 33.4 % (32.0-36.0); PLATELET COUNT 677 TH/MM3 (150-450); RED BLOOD COUNT 3.04 MIL/MM3 (4.00-5.30); REVIEW FLAG FINAL; WHITE BLOOD COUNT 10.1 TH/MM3 (4.0-11.0)
--- NOTE | 2017-07-05 11:18 | HHI.IDPN ---
Note Infectious Disease Note ID coverage Notes reviewed. Patient is more lethargic this am. Not arousing for me. D/W RN Ventric opened to drain. Clear linda CSF. Decreased stools. 25cc via dignishield. No fever. Ms. Nevarez is a 57-year-old female with past medical history significant for hypertension with SAH, acute VDRF, Antibiotics Flagyl oral Vanco IV and oral Lines Line sites with no e.o infection. Past Medical History Hypertension Tubal ligation Coiling of the aneurysm this admission. External ventricular device placement. Allergies: Coded Allergies: No Known Allergies (Verified , 02/25/16) OBJECTIVE: Vital Signs Date Time Temp Pulse Resp B/P Pulse Ox O2 Delivery O2 Flow Rate FiO2 07/05/17 08:48 95 21 07/05/17 07:00 94 Room Air 07/05/17 06:00 92 07/05/17 04:00 82 07/05/17 04:00 98.2 82 26 135/72 95 07/05/17 02:00 82 07/05/17 00:00 98.7 108 26 145/82 94 07/05/17 00:00 108 07/04/17 22:00 96 07/04/17 20:47 97 21 07/04/17 20:00 98.7 86 25 140/70 99 07/04/17 20:00 86 07/04/17 19:00 98 Room Air 07/04/17 18:00 98 07/04/17 16:00 92 07/04/17 16:00 98.7 92 24 144/75 97 07/04/17 14:00 102 07/04/17 12:00 76 07/04/17 12:00 98.9 76 20 140/65 96 07/04/17 07/04/17 07/05/17 15:00 23:00 07:00 Intake Total 1743 ml 302 ml 774 ml Output Total 0 ml 2025 ml Balance 1743 ml 302 ml -1251 ml Intake Oral 720 ml IV Total 1023 ml 302 ml 774 ml Output Urine Total 2000 ml Stool Total 0 ml 25 ml # Voids 7 1 4 # Bowel Movements 5 Laboratory Tests Test 07/04/17 07/05/17 05:30 10:30 White Blood Count 10.9 TH/MM3 10.1 TH/MM3 Red Blood Count 3.29 MIL/MM3 3.04 MIL/MM3 Hemoglobin 10.4 GM/DL 9.4 GM/DL Hematocrit 29.9 % 28.0 % Mean Corpuscular Volume 90.8 FL 92.0 FL Mean Corpuscular Hemoglobin 31.7 PG 30.8 PG Mean Corpuscular Hemoglobin 35.0 % 33.4 % Concent Red Cell Distribution Width 14.4 % 15.0 % Platelet Count 636 TH/MM3 677 TH/MM3 Mean Platelet Volume 8.2 FL 7.8 FL Laboratory Tests Test 07/04/17 07/04/17 07/05/17 05:30 21:12 04:40 Sodium Level 137 MEQ/L 140 MEQ/L Potassium Level 2.9 MEQ/L 3.6 MEQ/L 4.5 MEQ/L Chloride Level 101 MEQ/L 105 MEQ/L Carbon Dioxide Level 25.6 MEQ/L 23.9 MEQ/L Anion Gap 10 MEQ/L 11 MEQ/L Blood Urea Nitrogen 12 MG/DL 12 MG/DL Creatinine 0.31 MG/DL 0.38 MG/DL Estimat Glomerular Filtration 219 ML/MIN 173 ML/MIN Rate Random Glucose 117 MG/DL 93 MG/DL Calcium Level 8.7 MG/DL 8.7 MG/DL Imaging Head CT 07/04/17 0600 Signed Impressions: Service Date/Time: Tuesday, July 04, 2017 04:49 - CONCLUSION: 1. No evidence of acute intracranial pathology. No masses are identified. 2. Decreasing subarachnoid hemorrhage 3. Stable ventricular size Mp Hassan MD Physical Exam GENERAL: Patient is not responsive. SKIN: No rash. HEENT: VERN. No icterus. NECK: Supple without adenopathy. CHEST: Clear breath sounds. CARDIAC. Nl S1S2. No murmurs. ABDOMEN: Soft, (+) bowel sounds, non tender. EXTREMITIES: No CCE. NEURO: Non responsive. Assessment & Plan Remarks Sepsis ? New HCAP. New infiltrate, new fevers, elevated WBC. Aspiration Pneumonia on admission. MSSA Cdiff positive diarrhea C.albicans UTI. Sneed changed when pt had fevers. Acute resp failure. Acute encephalopathy: Acute SAH, metabolic, infection. Acute SAH s/p aneurysm coiling. Staph epi low grade bacteremia, doubt clin significance Fever improved. Leukocytosis improved. Decreased mental status. Clearance requested for [employer] shunt. Recs: Patient is cleared for S[employer] shunt placement for ID standpoint. Negative CSF culture and no clear signs of infection at this time. Continue Vanco IV (15-20 target) for now. Continue Flagyl IV Oral vanco for Cdiff. Stop Diflucan. Follow clinically. Winston Sheldon MD Jul 05, 2017 11:18
[2017-07-05] MEDS: PANTOPRAZOLE SODIUM 40 MG VIAL IV PUSH SCH (12:31)
--- NOTE | 2017-07-05 12:53 | HHI.NSPN ---
(Gena Nowak) Note Status Status: Progress Note (Gena Nowak) Interval History Interval History 57-year-old female admitted 06/15/17 with acute onset severe headache. 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 06/15/17 endovascular coiling of aneurysm. 06/18/17 patient with increasing confusion, new left frontal interparenchymal hemorrhage with surrounding edema on follow-up CT scan. Patient intubated for airway control. Ventriculostomy placed. 06/20/17: Remains intubated, mechanical ventilation, intravenous sedation. 06/21/17: possible septic shock, on multiple pressors. EVD draining well, bloody CSF, ICP wnl. f/u CTA Head yesterday neg for vasospasm. TCDs this morning pending. Sedation turned off 30 mins ago when rounded, no eye opening, not following commands, no withdrawals to extremities. 06/23/17: pressors being weaned off, s/p chest tube placement for severe pleural effusions. ICPs remains wnl. EVD draining well. Remains sedated. TCD this am. 06/28/17: per nursing report neuro checks improving, patient opening eyes and starting to follow commands. EVD continues to drain well, stable ICPs. 06/30/17: challenging ventriculostomy drain, CSF is clearing up, 07/02/17: EVD clamped yesterday morning, f/u CT Head this am completed 07/03/17: family would like to rechallenge EVD prior to [employer] shunt 07/04/17: f/u CT Head completed, ICPs stable overnight, neuro exam unchanged. patient positive for C. Dif and with multiple loose stools 07/05/17: mental status worse today, not opening eyes, not following commands. EVD remained clamped overnight (Gena Nowak) Interval History 07/05. Her drain was clamped. She is very lethargic, stuporose. Her ICP increasing. Upon opening of the drain her ICP's were elevated (Micah Hoff MD) Labs, Micro, & Vital Signs Results Date Time Temp Pulse Resp B/P Pulse Ox O2 Delivery O2 Flow Rate FiO2 07/05/17 08:48 95 21 07/05/17 08:00 98.5 68 21 166/75 97 07/05/17 07:00 94 Room Air 07/05/17 06:00 92 07/05/17 04:00 82 07/05/17 04:00 98.2 82 26 135/72 95 07/05/17 02:00 82 07/05/17 00:00 98.7 108 26 145/82 94 07/05/17 00:00 108 07/04/17 22:00 96 07/04/17 20:47 97 21 07/04/17 20:00 98.7 86 25 140/70 99 07/04/17 20:00 86 07/04/17 19:00 98 Room Air 07/04/17 18:00 98 07/04/17 16:00 92 07/04/17 16:00 98.7 92 24 144/75 97 07/04/17 14:00 102 07/05/17 07:00 Intake Total 2819 ml Output Total 2025 ml Balance 794 ml Constitutional Vital Signs Date Time Temp Pulse Resp B/P Pulse Ox O2 Delivery O2 Flow Rate FiO2 07/05/17 08:48 95 21 07/05/17 08:00 98.5 68 21 166/75 97 07/05/17 07:00 94 Room Air 07/05/17 06:00 92 07/05/17 04:00 82 07/05/17 04:00 98.2 82 26 135/72 95 07/05/17 02:00 82 07/05/17 00:00 98.7 108 26 145/82 94 07/05/17 00:00 108 07/04/17 22:00 96 07/04/17 20:47 97 21 07/04/17 20:00 98.7 86 25 140/70 99 07/04/17 20:00 86 07/04/17 19:00 98 Room Air 07/04/17 18:00 98 07/04/17 16:00 92 07/04/17 16:00 98.7 92 24 144/75 97 07/04/17 14:00 102 07/05/17 07:00 Intake Total 2819 ml Output Total 2025 ml Balance 794 ml (Gena Nowak) Review of Systems/Exam Exam Comatose, not opening eyes. Not following commands Ventriculostomy drain reopened to 5 cm H20 CN: pupils 3 mm equal. Motor: minimally withdraw to extremities, not following commands for testing ( Gena Nowak) Exam Stuporose, not opening eyes. Not following commands Ventriculostomy drain reopened to 5 cm H20 CN: pupils 3 mm equal. face symmetrical, reactive to light. Eyes appear conjugated. There was no nystagmus, no papilledema. Face musculature appeared symmetrical at rest. Face sensation, olfaction, visual mills, and hearing cannot be adequately assessed due to his neurological condition. The patient has a corneal reflex. SHe has a gag reflex. The sternocleidomastoid and trapezius are symmetrical. Cervical Spine: Her neck is soft, supple, without nuchal rigidity. Motor: muscle tone and bulk are normal. SHe moves purposefully all 4 extremities symmetrically. Reflexes: Deep tendon reflexes are 1+ and symmetrical in the biceps, triceps, and brachioradialis, bilaterally, in the upper extremities. In the lower extremities, the patellar and ankles are 1+, bilaterally. There is a bilateral plantar flexion response. There is no clonus or other abnormal reflexes noted. Sensory: On examination there is response to painful stimuli, localizing with both upper and lower extremities. Cerebellar: Examination cannot be adequately assessed due to the patient's neurological condition. (Micah Hoff MD) Medications Current Medications Current Medications Medications (Trade) Dose Ordered Sig/Doris Route PRN Reason Start Time Stop Time Status Last Admin Dose Admin Ondansetron HCl (Zofran Inj) 4 mg Q6H PRN IV NAUSEA OR VOMITING 06/15/17 13:30 06/18/17 13:00 Miscellaneous Information 1 Q361D XX 06/15/17 13:30 Chlorhexidine Gluconate (Chlorhexidine 2% Cloth) 3 pack Taper DAILY@04 TOP 06/16/17 04:00 06/12/18 03:59 07/01/17 04:00 Chlorhexidine Gluconate (Chlorhexidine 2% Cloth) 3 pack UNSCH PRN TOP HYGIENIC CARE 06/15/17 13:30 Senna/Docusate Sodium (Prabha-Colace) 1 tab BID PO 06/15/17 21:00 06/29/17 09:11 Magnesium Hydroxide (Milk Of Magnesia Liq) 30 ml Q12H PRN PO MILD - MODERATE CONSTIPATION 06/15/17 13:30 Hold Sennosides (Senokot) 17.2 mg Q12H PRN PO MODERATE - SEVERE CONSTIPATION 06/15/17 13:30 Hold Bisacodyl (Dulcolax Supp) 10 mg DAILY PRN RECTAL SEVERE CONSITIPATION 06/15/17 13:30 Lactulose (Lactulose Liq) 30 ml DAILY PRN PO SEVERE CONSITIPATION 06/15/17 13:30 Hold Labetalol HCl (Trandate Inj) 10 mg Q1H PRN IV PUSH SBP >160 06/15/17 13:30 07/01/17 00:29 Acetaminophen/ Hydrocodone Bitart 1 tab 1 tab Q4H PRN PO pain 1-5 06/16/17 11:30 06/30/17 04:04 Potassium Chloride 100 ml @ 50 mls/hr Q2H PRN IV For Potassium 2.8 - 3.2 mEq/L 06/18/17 05:30 07/02/17 08:57 Potassium Chloride (KCl 20 Meq Premix Inj) 100 ml @ 50 mls/hr Q2H PRN IV For Potassium 2.8 - 3.2 mEq/L 06/18/17 05:30 07/04/17 06:51 Potassium Bicarb/ Potassium Chloride 50 meq 50 meq UNSCH PRN PO For Potassium 3.3 - 3.5 mEq/L 06/18/17 05:30 06/20/17 17:59 Potassium Chloride 100 ml @ 25 mls/hr UNSCH PRN IV For Potassium 3.3 - 3.5 mEq/L 06/18/17 05:30 06/30/17 12:54 Potassium Chloride 100 ml @ 50 mls/hr Q2H PRN IV For Potassium 3.3 - 3.5 mEq/L 06/18/17 05:30 Magnesium Sulfate/ Sodium Chloride (Magnesium Sulfate Inj/NS Inj) 100 ml @ 50 mls/hr UNSCH PRN IV For Magnesium 0.9 - 1.1 mg/dL 06/18/17 05:30 Magnesium Oxide 800 mg 800 mg UNSCH PRN PO For Magnesium 1.2 - 1.6 mg/dL 06/18/17 05:30 Magnesium Sulfate/ Sodium Chloride (Magnesium Sulfate Inj/NS Inj) 100 ml @ 50 mls/hr UNSCH PRN IV For Magnesium 1.2 - 1.6 mg/dL 06/18/17 05:30 06/20/17 18:28 Potassium Phosphate 2000 mg 2,000 mg Q4H PRN PO For Phosphorus < 2.5 mg/dL 06/18/17 05:30 Sodium Phosphate/ Sodium Chloride (Sodium Phosphate Inj/NS 250 ml Inj) 250 ml @ 42 mls/hr UNSCH PRN IV For Phosphorus < 2.5 mg/dL 06/18/17 05:30 07/02/17 08:57 Potassium Phosphate 2000 mg 2,000 mg UNSCH PRN PO/TUBE SEE LABEL COMMENTS 06/18/17 05:30 Potassium Phosphate/Sodium Chloride (Potassium Phosphate Inj/NS 250 ml Inj) 260 ml @ 42 mls/hr UNSCH PRN IV SEE LABEL COMMENTS 06/18/17 05:30 Protein (Beneprotein Powder) 1 pack TID G-TUBE 06/19/17 13:00 07/05/17 08:38 Acetaminophen (Tylenol 650 Mg/ 20 ml Liq) 650 mg Q4H PRN PO Temp > 100.5 06/19/17 12:45 07/03/17 17:10 Terbutaline Sulfate (Brethine Inj) 1 mg UNSCH PRN SQ For Extravasation 06/20/17 17:30 Potassium Bicarb/ Potassium Chloride (K-Lyte Cl Eff) 25 meq Q12HR PO 06/21/17 10:00 07/04/17 21:00 Magnesium Oxide 400 mg 400 mg Q8HR PO 06/21/17 22:00 07/05/17 05:01 Metronidazole (Flagyl 500 Mg Inj) 100 ml @ 100 mls/hr Q8H IV 06/26/17 12:00 07/05/17 05:00 Nimodipine (Nimotop) 60 mg Q4HR PO 06/26/17 12:00 07/05/17 08:35 Vancomycin HCl (VANCOMYCIN for oral use only) 250 mg QID PO 06/28/17 09:00 07/05/17 08:38 Enoxaparin Sodium (Lovenox Inj) 40 mg Q24H SQ 06/28/17 14:00 07/04/17 14:17 Levetriacetam (Keppra Liq) 500 mg Q12HR NG 8/1/17 21:00 07/05/17 08:38 Sodium Chloride (Sodium Chloride) 1 gm Q6H OG-TUBE 06/30/17 17:00 07/05/17 05:01 Metoprolol Tartrate 12.5 mg 12.5 mg Q8H PO 07/01/17 17:00 07/05/17 08:38 Nicardipine HCl/ Sodium Chloride (Cardene Inj/NS 250 ml Inj) 260 ml @ 0 mls/hr TITRATE IV 07/01/17 09:45 Hydralazine HCl (Apresoline Inj) 10 mg Q4H PRN IV PUSH SBP >160 07/01/17 09:45 Miscellaneous (Pill Splitter) 1 ea UNSCH PRN OTHER SEE LABEL COMMENTS 07/01/17 09:45 Nystatin (Mycostatin Cream) 1 applic Q12HR TOPICAL 07/01/17 11:00 07/05/17 08:39 Pantoprazole Sodium 40 mg 40 mg Q24H IV PUSH 07/01/17 11:00 07/05/17 12:31 Pharmacy Profile Note (Vancomycin Consult Pharmacy) 0 ml @ 0 mls/hr UNSCH OTHER 07/01/17 12:00 Fluconazole 100 mg 100 mg DAILY PO 07/01/17 14:00 07/05/17 08:40 Vancomycin HCl/ Sodium Chloride (Vancomycin Inj/ NS 250 ml Inj) 250 ml @ 250 mls/hr Q8H IV 07/03/17 11:00 07/05/17 12:30 (Gena Nowak) Current Medications Current Medications Ondansetron HCl (Zofran Inj) 4 mg STK-MED ONCE .ROUTE ; Start 06/15/17 at 11:32 ; Stop 06/15/17 at 11:33; Status DC Ondansetron HCl 4 mg 4 mg ONCE ONCE IV PUSH Last administered on 06/15/17 11: 44; Start 06/15/17 at 11:45; Stop 06/15/17 at 11:46; Status DC Levetriacetam (Keppra 1000 Mg Inj) 100 ml @ 400 mls/hr BOLUS ONCE IV Last administered on 06/15/17 12:33; Start 06/15/17 at 11:45; Stop 06/15/17 at 11:59 ; Status DC Iohexol (Omnipaque 350 Inj) 75 ml STK-MED ONCE IV Last administered on 12:33; Start 06/15/17 at 12:33; Stop 06/15/17 at 12:34; Status DC Morphine Sulfate 2 mg 2 mg ONCE ONCE IV PUSH Last administered on 06/15/17 13 :00; Start 06/15/17 at 13:00; Stop 06/15/17 at 13:01; Status DC Sodium Chloride (NS 1000 ml Inj) 1,000 ml @ 75 mls/hr [id number] IV Last administered on 06/20/17 06:09; Start 06/15/17 at 13:18; Stop 06/20/17 at 17:27 ; Status DC Acetaminophen (Tylenol) 650 mg Q6H PRN PO FEVER >101F Last administered on 06/18 04:55; Start 06/15/17 at 13:30; Stop 06/19/17 at 13:00; Status DC Morphine Sulfate (Morphine Inj) 2 mg Q2H PRN IV PAIN SCALE 6 TO 10 Last administered on 06/24/17 02:39; Start 06/15/17 at 13:30; Stop 06/24/17 at 13:32 ; Status DC Pantoprazole Sodium (Protonix) 40 mg DAILY PO Last administered on 06/19/17 09 :09; Start 06/16/17 at 09:00; Stop 06/20/17 at 09:16; Status DC Ondansetron HCl (Zofran Inj) 4 mg Q6H PRN IV NAUSEA OR VOMITING Last administered on 06/18/17 13:00; Start 06/15/17 at 13:30 Miscellaneous Information 1 Q361D XX ; Start 06/15/17 at 13:30 Chlorhexidine Gluconate (Chlorhexidine 2% Cloth) 3 pack Taper DAILY@04 TOP Last administered on 07/06/17 03:47; Start 06/16/17 at 04:00; Stop 06/12/18 at 03:59 Chlorhexidine Gluconate (Chlorhexidine 2% Cloth) 3 pack UNSCH PRN TOP HYGIENIC CARE; Start 06/15/17 at 13:30 Senna/Docusate Sodium (Prabha-Colace) 1 tab BID PO Last administered on 06/29/17 09:11; Start 06/15/17 at 21:00 Magnesium Hydroxide (Milk Of Magnesia Liq) 30 ml Q12H PRN PO MILD - MODERATE CONSTIPATION; Start 06/15/17 at 13:30; Status Hold Sennosides (Senokot) 17.2 mg Q12H PRN PO MODERATE - SEVERE CONSTIPATION; Start 06/15/17 at 13:30; Status Hold Bisacodyl (Dulcolax Supp) 10 mg DAILY PRN RECTAL SEVERE CONSITIPATION; Start at 13:30 Lactulose (Lactulose Liq) 30 ml DAILY PRN PO SEVERE CONSITIPATION; Start at 13:30; Status Hold Labetalol HCl (Trandate Inj) 10 mg Q1H PRN IV PUSH SBP >160 Last administered on 07/01/17 00:29; Start 06/15/17 at 13:30 Nimodipine (Nimotop) 60 mg Q4HR PO Last administered on 06/20/17 08:28; Start 06/15/17 at 16:00; Stop 06/20/17 at 09:48; Status DC Fentanyl Citrate (fentaNYL INJ) 250 mcg STK-MED ONCE .ROUTE Last administered on 06/15/17 13:28; Start 06/15/17 at 13:28; Stop 06/15/17 at 13:29; Status DC Verapamil HCl 10 mg 10 mg STK-MED ONCE .ROUTE ; Start 06/15/17 at 13:40; Stop at 13:41; Status DC Levetriacetam 500 mg/Sodium Chloride 105 ml @ 420 mls/hr Q12HR IV Last administered on 06/29/17 09:11; Start 06/15/17 at 21:00; Stop 06/29/17 at 11:54; Status DC Cefazolin Sodium/ Dextrose (Ancef 2 Gm Premix) 50 ml @ As Directed STK-MED ONCE .ROUTE Last administered on 06/15/17 14:22; Start 06/15/17 at 14:22; Stop at 14:23; Status DC Verapamil HCl (Isoptin Inj) 5 mg STK-MED ONCE .ROUTE ; Start 06/15/17 at 14:43; Stop 06/15/17 at 14:44; Status DC Heparin Sodium (Porcine) 47249 units 10,000 units STK-MED ONCE .ROUTE Last administered on 06/15/17t 14:43; Start 06/15/17 at 14:43; Stop 06/15/17 at 14:44 ; Status DC Potassium Chloride 100 ml @ 50 mls/hr Q2H PRN IV For Potassium 2.8 - 3.2 mEq/L ; Start 06/15/17 at 16:15; Stop 06/18/17 at 05:21; Status DC Potassium Chloride (KCl 20 Meq Premix Inj) 100 ml @ 50 mls/hr Q2H PRN IV For Potassium 2.8 - 3.2 mEq/L; Start 06/15/17 at 16:15; Stop 06/18/17 at 05:21; Status DC Potassium Bicarb/ Potassium Chloride 50 meq 50 meq UNSCH PRN PO For Potassium 3.3 - 3.5 mEq/L; Start 06/15/17 at 16:15; Stop 06/18/17 at 05:21; Status DC Potassium Chloride 100 ml @ 25 mls/hr UNSCH PRN IV For Potassium 3.3 - 3.5 mEq /L; Start 06/15/17 at 16:15; Stop 06/18/17 at 05:21; Status DC Potassium Chloride 100 ml @ 50 mls/hr Q2H PRN IV For Potassium 3.3 - 3.5 mEq/L ; Start 06/15/17 at 16:15; Stop 06/18/17 at 05:20; Status DC Magnesium Sulfate/ Sodium Chloride (Magnesium Sulfate Inj/NS Inj) 100 ml @ 50 mls/hr UNSCH PRN IV For Magnesium 0.9 - 1.1 mg/dL; Start 06/15/17 at 16:15; Stop 06/18/17 at 05:21; Status DC Magnesium Oxide 800 mg 800 mg UNSCH PRN PO For Magnesium 1.2 - 1.6 mg/dL; Start 06/15/17 at 16:15; Stop 06/18/17 at 05:21; Status DC Magnesium Sulfate/ Sodium Chloride (Magnesium Sulfate Inj/NS Inj) 100 ml @ 50 mls/hr UNSCH PRN IV For Magnesium 1.2 - 1.6 mg/dL; Start 06/15/17 at 16:15; Stop 06/18/17 at 05:21; Status DC Potassium Phosphate 2000 mg 2,000 mg Q4H PRN PO For Phosphorus < 2.5 mg/dL; Start 06/15/17 at 16:15; Stop 06/18/17 at 05:21; Status DC Sodium Phosphate/ Sodium Chloride (Sodium Phosphate Inj/NS 250 ml Inj) 250 ml @ 42 mls/hr UNSCH PRN IV For Phosphorus < 2.5 mg/dL; Start 06/15/17 at 16:15; Stop 06/18/17 at 05:21; Status DC Potassium Phosphate 2000 mg 2,000 mg UNSCH PRN PO/TUBE SEE LABEL COMMENTS; Start 06/15/17 at 16:15; Stop 06/18/17 at 05:21; Status DC Potassium Phosphate 30 mmol/ Sodium Chloride 260 ml @ 42 mls/hr UNSCH PRN IV SEE LABEL COMMENTS; Start 06/15/17 at 16:15; Stop 06/18/17 at 05:21; Status DC Norepinephrine Bitartrate (Levophed-Dextrose Drip) 250 ml @ 0 mls/hr TITRATE IV Last administered on 06/18/17 17:29; Start 06/15/17 at 20:00; Stop 06/19/17 at 03:48; Status DC Terbutaline Sulfate 1 mg 1 mg UNSCH PRN SQ For Extravasation; Start 06/15/17 at 18:45; Stop 07/01/17 at 12:22; Status DC Nicardipine HCl/ Sodium Chloride (Cardene Inj/NS 250 ml Inj) 260 ml @ 0 mls/hr TITRATE IV ; Start 06/15/17 at 20:00; Stop 06/21/17 at 09:47; Status DC Miscellaneous Information ALL NURSING DEPARTME... UNSCH PRN .XX SEE LABEL COMMENTS; Start 06/15/17 at 17:00; Stop 06/16/17 at 16:59; Status DC Iodixanol (VISIPAQUE 320 INJ (Rad Spec)) 130 ml STK-MED ONCE I-ARTERIAL Last administered on 06/15/17 15:45; Start 06/15/17 at 15:45; Stop 06/16/17 at 10:48 ; Status DC Acetaminophen/ Hydrocodone Bitart ([place] 10-325 Mg) 1 tab Q4H PRN PO pain 1-5 Last administered on 06/30/17 04:04; Start 06/16/17 at 11:30 Potassium Chloride 20 meq 20 meq ONCE ONCE PO Last administered on 06/18/17 06:39; Start 06/18/17 at 05:30; Stop 06/18/17 at 05:31; Status DC Potassium Chloride 100 ml @ 50 mls/hr Q2H PRN IV For Potassium 2.8 - 3.2 mEq/ L Last administered on 07/02/17 08:57; Start 06/18/17 at 05:30 Potassium Chloride (KCl 20 Meq Premix Inj) 100 ml @ 50 mls/hr Q2H PRN IV For Potassium 2.8 - 3.2 mEq/L Last administered on 07/06/17 07:30; Start 06/18/17 at 05:30 Potassium Bicarb/ Potassium Chloride 50 meq 50 meq UNSCH PRN PO For Potassium 3.3 - 3.5 mEq/L Last administered on 06/20/17 17:59; Start 06/18/17 at 05:30 Potassium Chloride 100 ml @ 25 mls/hr UNSCH PRN IV For Potassium 3.3 - 3.5 mEq /L Last administered on 06/30/17 12:54; Start 06/18/17 at 05:30 Potassium Chloride 100 ml @ 50 mls/hr Q2H PRN IV For Potassium 3.3 - 3.5 mEq/L ; Start 06/18/17 at 05:30 Magnesium Sulfate/ Sodium Chloride (Magnesium Sulfate Inj/NS Inj) 100 ml @ 50 mls/hr UNSCH PRN IV For Magnesium 0.9 - 1.1 mg/dL; Start 06/18/17 at 05:30 Magnesium Oxide 800 mg 800 mg UNSCH PRN PO For Magnesium 1.2 - 1.6 mg/dL; Start 06/18/17 at 05:30 Magnesium Sulfate/ Sodium Chloride (Magnesium Sulfate Inj/NS Inj) 100 ml @ 50 mls/hr UNSCH PRN IV For Magnesium 1.2 - 1.6 mg/dL Last administered on 18:28; Start 06/18/17 at 05:30 Potassium Phosphate 2000 mg 2,000 mg Q4H PRN PO For Phosphorus < 2.5 mg/dL; Start 06/18/17 at 05:30 Sodium Phosphate/ Sodium Chloride (Sodium Phosphate Inj/NS 250 ml Inj) 250 ml @ 42 mls/hr UNSCH PRN IV For Phosphorus < 2.5 mg/dL Last administered on 08:57; Start 06/18/17 at 05:30 Potassium Phosphate 2000 mg 2,000 mg UNSCH PRN PO/TUBE SEE LABEL COMMENTS; Start 06/18/17 at 05:30 Potassium Phosphate/Sodium Chloride (Potassium Phosphate Inj/NS 250 ml Inj) 260 ml @ 42 mls/hr UNSCH PRN IV SEE LABEL COMMENTS; Start 06/18/17 at 05:30 Lorazepam 2 mg 2 mg STK-MED ONCE .ROUTE Last administered on 06/18/17 10:32; Start 06/18/17 at 10:32; Stop 06/18/17 at 10:33; Status DC Dexmedetomidine HCl/Sodium Chloride (Precedex Inj/NS Inj) 52 ml @ 0 mls/hr TITRATE IV Last administered on 06/18/17 11:42; Start 06/18/17 at 10:45; Stop 06/21/17 at 09:43; Status DC Etomidate (Amidate Inj) 20 mg ONCE ONCE IV PUSH Last administered on 13:00; Start 06/18/17 at 12:15; Stop 06/18/17 at 12:16; Status DC Rocuronium Ninole (Zemuron Inj) 50 mg BOLUS ONCE IV Last administered on 06/18 13:00; Start 06/18/17 at 12:15; Stop 06/18/17 at 12:16; Status DC Fentanyl Citrate (fentaNYL INJ) 100 mcg ONCE ONCE IV PUSH Last administered on 06/18/17 13:00; Start 06/18/17 at 12:15; Stop 06/18/17 at 12:16; Status DC Midazolam HCl 10 mg 10 mg ONCE ONCE IV PUSH Last administered on 06/18/17 12: 15; Start 06/18/17 at 12:15; Stop 06/18/17 at 12:16; Status DC Propofol (Diprivan 1000 Mg/100ml Inj) 100 ml @ As Directed STK-MED ONCE .ROUTE Last administered on 06/18/17 13:00; Start 06/18/17 at 12:51; Stop 06/18/17 at 12:52; Status DC Mannitol 25 gm 25 gm NOW ONCE IV Last administered on 06/18/17 15:00; Start 06/18/17 at 13:30; Stop 06/18/17 at 13:31; Status DC Sodium Chloride 500 ml @ 30 mls/hr Q16H IV Last administered on 06/22/17 14: 29; Start 06/18/17 at 14:00; Stop 06/23/17 at 05:27; Status DC Potassium Chloride (KCl 40 Meq Premix Inj) 100 ml @ 25 mls/hr Q4H IV Last administered on 06/18/17 17:18; Start 06/18/17 at 15:00; Stop 06/18/17 at 22:59 ; Status DC Potassium Bicarb/ Potassium Chloride 50 meq 50 meq ONCE ONCE PO Last administered on 06/18/17 15:00; Start 06/18/17 at 15:00; Stop 06/18/17 at 15:01 ; Status DC Propofol 100 ml @ As Directed STK-MED ONCE .ROUTE Last administered on 13:00; Start 06/18/17 at 16:35; Stop 06/18/17 at 16:36; Status DC Midazolam HCl 100 ml @ 0 mls/hr TITRATE IV Last administered on 06/23/17 17:28 ; Start 06/18/17 at 22:00; Stop 06/24/17 at 13:32; Status DC Norepinephrine Bitartrate 4 mg/ Sodium Chloride 250 ml @ 0 mls/hr TITRATE IV Last administered on 06/20/17 13:26; Start 06/18/17 at 22:00; Stop 06/20/17 at 17:27; Status DC Vasopressin 40 units/Dextrose 100 ml @ 1.5 mls/hr Q24H IV Last administered on 06/22/17 21:18; Start 06/18/17 at 22:01; Stop 06/23/17 at 09:12; Status DC Propofol 100 ml @ As Directed STK-MED ONCE .ROUTE ; Start 06/18/17 at 23:04; Stop 06/18/17 at 23:05; Status DC Propofol (Diprivan 1000 Mg/100ml Inj) 100 ml @ 0 mls/hr TITRATE IV Last administered on 06/21/17 05:07; Start 06/18/17 at 23:45; Stop 06/21/17 at 09:43 ; Status DC Iohexol (Omnipaque 350 Inj) 75 ml STK-MED ONCE IV Last administered on 00:55; Start 06/19/17 at 00:55; Stop 06/19/17 at 00:56; Status DC Protein (Beneprotein Powder) 1 pack TID G-TUBE Last administered on 07/05/17 08 :38; Start 06/19/17 at 13:00 Terbutaline Sulfate 1 mg 1 mg UNSCH PRN SQ For Extravasation; Start 06/19/17 at 12:45; Stop 06/19/17 at 13:00; Status DC Phenylephrine HCl/ Sodium Chloride (Neosynephrine Inj/NS 500 ml Inj) 516 ml @ 0 mls/hr TITRATE IV Last administered on 06/20/17 13:27; Start 06/19/17 at 13:00 ; Stop 06/20/17 at 15:10; Status DC Acetaminophen (Tylenol 650 Mg/ 20 ml Liq) 650 mg Q4H PRN PO Temp > 100.5 Last administered on 07/03/17 17:10; Start 06/19/17 at 12:45 Iohexol 70 ml 70 ml STK-MED ONCE IV Last administered on 06/20/17 08:00; Start 06/20/17 at 08:00; Stop 06/20/17 at 08:01; Status DC Sodium Chloride 1,000 ml @ 200 mls/hr Q5H IV Last administered on 06/23/17 21 :27; Start 06/20/17 at 09:00; Stop 06/25/17 at 14:11; Status DC Sodium Chloride 1,000 ml @ 999 mls/hr BOLUS ONCE IV Last administered on 06/20 09:15; Start 06/20/17 at 09:15; Stop 06/20/17 at 10:15; Status DC Sodium Chloride (NS 1000 ml Inj) 1,000 ml @ 999 mls/hr BOLUS ONCE IV Last administered on 06/20/17 10:00; Start 06/20/17 at 09:15; Stop 06/20/17 at 10:15 ; Status DC Pantoprazole Sodium (Protonix Inj) 40 mg ONCE ONCE IV PUSH Last administered on 06/20/17 09:15; Start 06/20/17 at 09:15; Stop 06/20/17 at 09:18; Status DC Nimodipine 30 mg 30 mg Q4HR PO Last administered on 06/26/17 08:32; Start at 12:00; Stop 06/26/17 at 11:06; Status DC Fentanyl Citrate (fentaNYL DRIP) 250 ml @ 0 mls/hr TITRATE IV Last administered on 06/24/17 22:04; Start 06/20/17 at 10:15; Stop 06/26/17 at 11:05 ; Status DC Desmopressin Acetate 0.5 mcg 0.5 mcg ONCE ONCE IV Last administered on 13:15; Start 06/20/17 at 13:15; Stop 06/20/17 at 13:16; Status DC Sodium Chloride 1,000 ml @ 999 mls/hr BOLUS ONCE IV Last administered on 06/20 13:15; Start 06/20/17 at 13:15; Stop 06/20/17 at 14:15; Status DC Sodium Chloride 1,000 ml @ 999 mls/hr BOLUS ONCE IV Last administered on 06/20 13:15; Start 06/20/17 at 13:15; Stop 06/20/17 at 14:15; Status DC Phenylephrine HCl 160 mg/Sodium Chloride 516 ml @ 0 mls/hr TITRATE IV Last administered on 06/22/17 05:32; Start 06/20/17 at 15:15; Stop 06/25/17 at 14:12 ; Status DC Piperacillin Sod/ Tazobactam Sod (Zosyn 4.5 Gm Premix) 100 ml @ 200 mls/hr Q6H IV Last administered on 06/21/17 10:00; Start 06/20/17 at 16:00; Stop at 15:09; Status DC Potassium Chloride 40 meq 40 meq Q1H PO ; Start 06/20/17 at 17:00; Stop at 18:01; Status DC Potassium Chloride 100 ml @ 25 mls/hr Q4H IV Last administered on 06/20/17 18 :56; Start 06/20/17 at 17:00; Stop 06/21/17 at 00:59; Status DC Dopamine HCl/ Dextrose (DOPamine INJ PREMIX) 500 ml @ 6.401 mls/ hr TITRATE IV Last administered on 06/20/17 18:00; Start 06/20/17 at 17:30; Stop 06/24/17 at 13:32; Status DC Terbutaline Sulfate 1 mg 1 mg UNSCH PRN SQ For Extravasation; Start 06/20/17 at 17:30 Norepinephrine Bitartrate/Sodium Chloride (Levophed Inj/NS 250 ml Inj) 250 ml @ 0 mls/hr TITRATE IV Last administered on 06/21/17 06:37; Start 06/20/17 at 17: 30; Stop 06/21/17 at 19:25; Status DC Albumin Human 25 gm 25 gm NOW IV Last administered on 06/21/17 05:26; Start at 05:30; Stop 06/21/17 at 06:50; Status DC Milrinone Lactate 20 mg/Sodium Chloride 100 ml @ 12.8 mls/hr [id number] IV Last administered on 06/21/17 07:12; Start 06/21/17 at 05:55; Stop 06/25/17 at 14:12 ; Status DC Sodium Chloride 1,000 ml @ 999 mls/hr BOLUS ONCE IV Last administered on 06/21 06:37; Start 06/21/17 at 06:00; Stop 06/21/17 at 07:00; Status DC Sodium Chloride 1,000 ml @ 999 mls/hr BOLUS ONCE IV Last administered on 06/21 07:42; Start 06/21/17 at 06:00; Stop 06/21/17 at 07:00; Status DC Pharmacy Profile Note 0 ml @ 0 mls/hr UNSCH OTHER ; Start 06/21/17 at 06:00; Stop 06/25/17 at 20:14; Status DC Vancomycin HCl 1000 mg/Sodium Chloride 250 ml @ 250 mls/hr ONCE ONCE IV Last administered on 06/21/17 09:59; Start 06/21/17 at 09:00; Stop 06/21/17 at 09:59 ; Status DC Cefepime HCl/ Sodium Chloride (Maxipime Inj/NS Inj) 100 ml @ 200 mls/hr Q8H IV ; Start 06/21/17 at 08:00; Stop 06/21/17 at 09:27; Status DC Albumin Human (Albumin 5% Inj) 25 gm Q6H IV ; Start 06/21/17 at 06:00; Stop at 10:11; Status DC Hydrocortisone Sodium Succinate 100 mg 100 mg ONCE ONCE IV Last administered on 06/21/17 09:15; Start 06/21/17 at 09:15; Stop 06/21/17 at 09:16; Status DC Sodium Chloride (NS 1000 ml Inj) 1,000 ml @ 999 mls/hr Q1H1M IV Last administered on 06/21/17 08:30; Start 06/21/17 at 09:15; Stop 06/21/17 at 14:15 ; Status DC Hydrocortisone Sodium Succinate 100 mg 100 mg Q8HR IV PUSH Last administered on 06/24/17 13:45; Start 06/21/17 at 14:00; Stop 06/24/17 at 13:57; Status DC Levofloxacin/ Dextrose (Levaquin 750 Mg Premix Inj) 150 ml @ 100 mls/hr Q24H IV Last administered on 06/25/17 09:32; Start 06/21/17 at 10:00; Stop at 20:14; Status DC Potassium Bicarb/ Potassium Chloride (K-Lyte Cl Eff) 25 meq Q12HR PO Last administered on 07/05/17 20:50; Start 06/21/17 at 10:00 Albuterol/ Ipratropium (Duoneb Neb) 1 ampule Q4HR NEB NEB Last administered on 06/26/17 08:35; Start 06/21/17 at 12:00; Stop 06/26/17 at 10:56; Status DC Albuterol/ Ipratropium 1 ampule 1 ampule Q2HR NEB PRN NEB SHORTNESS OF BREATH; Start 06/21/17 at 10:00 Calcium Chloride/ Sodium Chloride (Calcium Chloride Inj/NS Inj) 110 ml @ 110 mls/hr ONCE ONCE IV Last administered on 06/21/17 11:00; Start 06/21/17 at 11 :00; Stop 06/21/17 at 11:59; Status DC Albumin Human 25 gm 25 gm Q8H IV Last administered on 06/27/17 10:38; Start at 11:00; Stop 06/27/17 at 17:04; Status DC Sodium Bicarbonate 50 ml @ As Directed STK-MED ONCE .ROUTE Last administered on 06/21/17 12:00; Start 06/21/17 at 10:28; Stop 06/21/17 at 10:29; Status DC Sodium Bicarbonate 150 meq/Sterile Water 1,000 ml @ 150 mls/hr Q6H40M IV Last administered on 06/21/17 19:57; Start 06/21/17 at 12:00; Stop 06/24/17 at 13:34 ; Status DC Sodium Bicarbonate (Sodium Bicarbonate 8.4% Inj) 50 ml @ As Directed STK-MED ONCE .ROUTE Last administered on 06/21/17 10:30; Start 06/21/17 at 12:06; Stop 06/21/17 at 12:07; Status DC Desmopressin Acetate (Ddavp Inj) 1 mcg ONCE ONCE IV Last administered on 15:00; Start 06/21/17 at 15:00; Stop 06/21/17 at 15:01; Status DC Miscellaneous Medication (ASP Crit: Other exception documentation) 1 UNSCH X1 PRN .XX PHARMACY DOCUMENTATION; Start 06/21/17 at 15:15; Stop 06/22/17 at 15:14 ; Status DC Miscellaneous Medication 1 1 UNSCH X1 PRN XX PHARMACY DOCUMENTATION; Start at 15:15; Stop 06/22/17 at 15:14; Status DC Meropenem 1000 mg/ Sodium Chloride 100 ml @ 200 mls/hr Q8H IV Last administered on 06/24/17 08:21; Start 06/21/17 at 17:00; Stop 06/24/17 at 17:26 ; Status DC Vancomycin HCl/ Sodium Chloride (Vancomycin Inj/ NS 250 ml Inj) 250 ml @ 250 mls/hr Q18H IV Last administered on 06/22/17 04:29; Start 06/22/17 at 04:00; Stop 06/22/17 at 13:16; Status DC Miscellaneous Information SPECIFIC LAB TO BE ... ONCE ONCE .XX Last administered on 06/23/17 15:45; Start 06/23/17 at 15:45; Stop 06/23/17 at 16:33 ; Status DC Potassium Chloride 100 ml @ 25 mls/hr Q4H IV Last administered on 06/21/17 22 :02; Start 06/21/17 at 18:00; Stop 06/22/17 at 01:59; Status DC Magnesium Sulfate/ Dextrose (Magnesium Sulfate 1 Gm Premix) 100 ml @ 100 mls/ hr Q1H IV ; Start 06/21/17 at 18:00; Stop 06/21/17 at 19:59; Status DC Magnesium Oxide (Mag-Ox) 400 mg Q8HR PO Last administered on 07/05/17 20:51; Start 06/21/17 at 22:00 Desmopressin Acetate 1 mcg 1 mcg Q12HR IV PUSH Last administered on 06/21/17 22:01; Start 06/21/17 at 21:00; Stop 06/23/17 at 09:13; Status DC Norepinephrine Bitartrate/Sodium Chloride (Levophed Inj/NS 500 ml Inj) 500 ml @ 0 mls/hr TITRATE IV Last administered on 06/23/17 12:34; Start 06/21/17 at 19: 30; Stop 06/25/17 at 14:12; Status DC Alteplase, Recombinant (Cathflo Activase Inj) 2 mg UNSCH X1 PRN IV FLUSH PORT FLUSH; Start 06/21/17 at 21:15; Stop 06/22/17 at 23:59; Status DC Furosemide (Lasix Inj) 80 mg STK-MED ONCE .ROUTE Last administered on 06:50; Start 06/22/17 at 06:50; Stop 06/22/17 at 06:51; Status DC Bumetanide (Bumex Inj) 2 mg NOW IV PUSH ; Start 06/22/17 at 07:00; Stop at 09:00; Status DC Rocuronium Ninole (Zemuron Inj) 50 mg STK-MED ONCE .ROUTE ; Start 06/22/17 at 06:53; Stop 06/22/17 at 06:54; Status DC Propofol (Diprivan 200 Mg/20 ml Inj) 20 mg STK-MED ONCE IV ; Start 06/15/17 at 07:31; Stop 06/22/17 at 07:32; Status DC Ondansetron HCl (Zofran Inj) 4 mg STK-MED ONCE IV PUSH ; Start 06/15/17 at 07:31 ; Stop 06/22/17 at 07:32; Status DC Furosemide (Lasix Inj) 80 mg NOW ONCE IV PUSH ; Start 06/22/17 at 07:45; Stop 06/22/17 at 07:46; Status DC Rocuronium Ninole 15 mg 15 mg STAT ONCE IV PUSH ; Start 06/22/17 at 07:45; Stop 06/22/17 at 07:46; Status DC Vancomycin HCl 1000 mg/Sodium Chloride 250 ml @ 250 mls/hr Q12H IV Last administered on 06/23/17 16:16; Start 06/22/17 at 16:00; Stop 06/23/17 at 21:14 ; Status DC Calcium Gluconate 2 gm/Dextrose 120 ml @ 120 mls/hr ONCE ONCE IV Last administered on 06/22/17 14:18; Start 06/22/17 at 15:00; Stop 06/22/17 at 15:59 ; Status DC Sodium Chloride 176 meq/Sodium Chloride 500 ml @ 30 mls/hr Q16H IV Last administered on 06/23/17 21:19; Start 06/23/17 at 06:00; Stop 06/29/17 at 09:21 ; Status DC Vancomycin HCl/ Sodium Chloride (Vancomycin Inj/ NS 250 ml Inj) 262 ml @ 250 mls/hr Q12H IV Last administered on 06/25/17 04:18; Start 06/24/17 at 04:00; Stop 06/25/17 at 09:16; Status DC Miscellaneous Information SPECIFIC LAB TO BE DRAWN:VANCO TROUGH DATE TO BE DR... ONCE ONCE .XX Last administered on 06/25/17 04:17; Start 06/25/17 at 03 :45; Stop 06/25/17 at 03:46; Status DC Propofol 100 ml @ 0 mls/hr TITRATE IV Last administered on 06/27/17 05:18; Start 06/24/17 at 13:45; Stop 07/01/17 at 09:32; Status DC Sodium Chloride (NS 1000 ml Inj) 1,000 ml @ 84 mls/hr [id number] IV Last administered on 06/25/17 13:35; Start 06/24/17 at 13:45; Stop 06/25/17 at 14:12 ; Status DC Hydrocortisone Sodium Succinate 50 mg 50 mg Q8HR IV PUSH Last administered on 05:33; Start 06/24/17 at 15:15; Stop 06/26/17 at 11:06; Status DC Cefazolin Sodium/ Dextrose 50 ml @ 100 mls/hr Q8H IV Last administered on 09:12; Start 06/24/17 at 18:00; Stop 06/29/17 at 11:49; Status DC Vancomycin HCl/ Sodium Chloride (Vancomycin Inj/ NS 250 ml Inj) 262.5 ml @ 250 mls/hr Q12H IV Last administered on 06/25/17 16:00; Start 06/25/17 at 16:00; Stop 06/25/17 at 20:14; Status DC Miscellaneous Information SPECIFIC LAB TO BE ... ONCE ONCE .XX ; Start 06/26 at 15:45; Stop 06/26/17 at 15:45; Status DC Bumetanide (Bumex Inj) 2 mg ONCE ONCE IV PUSH Last administered on 06/25/17 14:15; Start 06/25/17 at 14:15; Stop 06/25/17 at 14:16; Status DC Potassium Bicarb/ Potassium Chloride 25 meq 25 meq ONCE ONCE PO Last administered on 06/25/17 14:15; Start 06/25/17 at 14:15; Stop 06/25/17 at 14:16 ; Status DC Nicardipine HCl 25 mg/Sodium Chloride 260 ml @ 0 mls/hr TITRATE IV Last administered on 06/30/17 05:33; Start 06/25/17 at 18:00; Stop 07/01/17 at 09:35; Status DC Metronidazole (Flagyl 500 Mg Inj) 100 ml @ 100 mls/hr Q8H IV Last administered on 07/06/17 04:25; Start 06/26/17 at 12:00 Albuterol/ Ipratropium (Duoneb Neb) 1 ampule Q6HR NEB NEB ; Start 06/26/17 at 16:00; Stop 06/26/17 at 16:00; Status DC Bumetanide (Bumex Inj) 1 mg ONCE ONCE IV PUSH Last administered on 06/26/17 11:37; Start 06/26/17 at 12:00; Stop 06/26/17 at 12:01; Status DC Potassium Bicarb/ Potassium Chloride 25 meq 25 meq ONCE ONCE PO Last administered on 06/26/17 11:37; Start 06/26/17 at 11:30; Stop 06/26/17 at 11:31 ; Status DC Potassium Chloride (KCl 20 Meq Premix Inj) 100 ml @ 50 mls/hr BOLUS ONCE IV Last administered on 06/26/17 11:38; Start 06/26/17 at 11:00; Stop 06/26/17 at 12:59; Status DC Nimodipine (Nimotop) 60 mg Q4HR PO Last administered on 07/06/17 07:29; Start 06/26/17 at 12:00 Albuterol/ Ipratropium (Duoneb Neb) 1 ampule Q6HR NEB NEB Last administered on 06/30/17 09:04; Start 06/26/17 at 11:15; Stop 06/30/17 at 11:15; Status DC Bumetanide (Bumex Inj) 1 mg ONCE ONCE IV PUSH Last administered on 06/27/17 16:33; Start 06/27/17 at 15:30; Stop 06/27/17 at 15:31; Status DC Potassium Bicarb/ Potassium Chloride (K-Lyte Cl Eff) 25 meq ONCE ONCE PO Last administered on 06/27/17 16:33; Start 06/27/17 at 15:30; Stop 06/27/17 at 15:31; Status DC Vancomycin HCl (VANCOMYCIN for oral use only) 250 mg QID PO Last administered on 07/05/17 20:51; Start 06/28/17 at 09:00 Enoxaparin Sodium (Lovenox Inj) 40 mg Q24H SQ Last administered on 07/04/17 14: 17; Start 06/28/17 at 14:00; Status Hold Sodium Chloride (Sodium Chloride) 1 gm Q8H OG-TUBE Last administered on 11:20; Start 06/29/17 at 11:00; Stop 06/30/17 at 16:19; Status DC Levetriacetam (Keppra Liq) 500 mg Q12HR NG Last administered on 07/05/17 20:50 ; Start 06/29/17 at 21:00 Metoprolol Tartrate (Lopressor) 12.5 mg Q12HR PO Last administered on 06/30/17 21:59; Start 06/29/17 at 13:00; Stop 07/01/17 at 09:33; Status DC Sodium Chloride (Sodium Chloride) 1 gm Q6H OG-TUBE Last administered on 22:44; Start 06/30/17 at 17:00 Potassium Bicarb/ Potassium Chloride (K-Lyte Cl Eff) 25 meq ONCE ONCE PO Last administered on 06/30/17 17:08; Start 06/30/17 at 16:30; Stop 06/30/17 at 16: 31; Status DC Bumetanide (Bumex Inj) 0.5 mg ONCE ONCE IV PUSH Last administered on 07/01/17 09:59; Start 07/01/17 at 09:30; Stop 07/01/17 at 09:31; Status DC Metoprolol Tartrate 12.5 mg 12.5 mg Q8H PO Last administered on 07/05/17 08:38 ; Start 07/01/17 at 17:00 Nicardipine HCl/ Sodium Chloride (Cardene Inj/NS 250 ml Inj) 260 ml @ 0 mls/hr TITRATE IV ; Start 07/01/17 at 09:45 Hydralazine HCl (Apresoline Inj) 10 mg Q4H PRN IV PUSH SBP >160; Start 07/01/17 at 09:45 Miscellaneous (Pill Splitter) 1 ea UNSCH PRN OTHER SEE LABEL COMMENTS; Start at 09:45 Nystatin (Mycostatin Cream) 1 applic Q12HR TOPICAL Last administered on 20:51; Start 07/01/17 at 11:00 Potassium Bicarb/ Potassium Chloride (K-Lyte Cl Eff) 25 meq ONCE ONCE PO Last administered on 07/01/17 15:47; Start 07/01/17 at 16:00; Stop 07/01/17 at 16: 01; Status DC Pantoprazole Sodium 40 mg 40 mg Q24H IV PUSH Last administered on 07/05/17 12: 31; Start 07/01/17 at 11:00 Cefepime HCl 2000 mg/Sodium Chloride 100 ml @ 200 mls/hr Q8H IV Last administered on 07/04/17 13:43; Start 07/01/17 at 12:00; Stop 07/04/17 at 16:31; Status DC Pharmacy Profile Note 0 ml @ 0 mls/hr UNSCH OTHER ; Start 07/01/17 at 12:00 Vancomycin HCl/ Sodium Chloride (Vancomycin Inj/ NS 250 ml Inj) 262.5 ml @ 250 mls/hr Q12H IV Last administered on 07/03/17 02:30; Start 07/01/17 at 13:00; Stop 07/03/17 at 08:37; Status DC Miscellaneous Information SPECIFIC LAB TO BE MADELINE... ONCE ONCE .XX ; Start at 00:45; Stop 07/03/17 at 00:46; Status DC Fluconazole 100 mg 100 mg DAILY PO Last administered on 07/06/17 07:29; Start 07/01/17 at 14:00 Vancomycin HCl/ Sodium Chloride (Vancomycin Inj/ NS 250 ml Inj) 250 ml @ 250 mls/hr Q8H IV Last administered on 07/06/17 04:25; Start 07/03/17 at 11:00 Miscellaneous Information SPECIFIC LAB TO BE MADELINE... ONCE ONCE .XX Last administered on 07/04/17 02:45; Start 07/04/17 at 02:45; Stop 07/04/17 at 02:46; Status DC Miscellaneous Information SPECIFIC LAB TO BE DRAWN:VANCOMYCIN TROUGH DATE TO... ONCE ONCE .XX Last administered on 07/05/17 10:49; Start 07/05/17 at 10:45; Stop 07/05/17 at 10:46; Status DC Miscellaneous Information SPECIFIC LAB TO BE MADELINE... 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 No evidence of acute intracranial pathology. No masses are identified. 2. Decreasing subarachnoid hemorrhage 3. Stable ventricular size Mp Hassan MD Chest X-Ray 07/01/17 0000 Signed Impressions: Service Date/Time: June 10:05 - CONCLUSION: 1. Increased left perihilar and basilar airspace disease since June 2. Probable small effusions. Endotracheal tube, nasogastric tube and right central line in satisfactory position. No pneumothorax. Poncho Aguilera MD Transcranial Doppler Study Complete 06/30/17 0000 Signed Impressions: Service Date/Time: Friday, June 30, 2017 07:45 - CONCLUSION: 1. No evidence for vasospasm. Brown Schuler MD Upper Extremity Ultrasound 06/28/17 0000 Signed Impressions: Service Date/Time: Wednesday, June 28, 2017 09:12 - CONCLUSION: There is thrombus within the left basilic vein and right cephalic vein. Sascha Montez MD Lower Extremity Ultrasound 06/28/17 0000 Signed Impressions: Service Date/Time: Wednesday, June 28, 2017 08:53 - CONCLUSION: Normal examination. Sascha Montez MD Head CTA 06/20/17 0600 Signed Impressions: Service Date/Time: Tuesday, June 20, 2017 07:52 - CONCLUSION: No evidence for any significant spasm. Sascha Montez MD Neck CTA 06/15/17 1125 Signed Impressions: Service Date/Time: Thursday, June 15, 2017 12:10 - CONCLUSION: 1. No stenosis of either carotid artery. 2. No aneurysm seen. 3. Normal variants of the aortic arch. Pascual Sanderson MD Cerebral Arteriogram 06/15/17 0000 Signed Impressions: Service Date/Time: Thursday, June 15, 2017 13:11 - CONCLUSION: 1. 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 2. No significant vasospasm seen on the left. 3. I spoke with Dr. Yen immediately following the procedure. Emile Walker Jr., MD (Micah Hoff MD) Plan Plan Remarks reopen EVD to drain, patient cleared by ID for [employer] shunt placement will schedule placement of [employer]IST shunt tomorrow dw family NPO tonight (Gena Nowak) Attending Statement Continue neuro checks. Nimodipine, Keppra. She became stuporose, and ICP's increasing. Up on opening of the ventriculostomy she drain large amount of CSF and her neurological condition improved, waking up, returning to baseline. I recommend placement of ventriculoperitoneal shunt. I have discussed with her the details including the [id number] details of the surgical procedure , its indications, alternatives, risks, and potential complications. Risks and potential complications include, but are not limited to, infection, blood loss, CSF leak, partial or complete loss of sight in one or both eyes, paresis, paralysis, permanent pain or difficulty swallowing, loss of bowel or bladder function, complications from anesthesia, blood clot, stroke, myocardial infarction, or even . Follow up daily TCD's Pulmonary. Cont mechanical ventilation, aggressive pulmonary toilette, nasotracheal suction, and breathing treatments with nebulizers. Status post chest tube. Follow up chest xrays Daily PT and OT Nutrition. NPO Renal. Continue to monitor closely urine output, BUN and creatinine Endocrine. Continue to Monitor serial Acu checks and SSI as needed in detail ID Cdiff positive. Continue antibiotics. She has been clear by infectious disease to undergo placement of her shunt Continue Protonix for stress ulcer prophylaxis Continue Wade hose and SCD's for DVT prophylaxis. Lovenox Discussed with Dr Rosen The exam, history, and the medical decision-making described in the above note were completed with the assistance of the mid-level provider. I reviewed and agree with the findings presented. I attest that I had a [id number] encounter with the patient on the same day, and personally performed and documented my assessment and findings in the medical record. (Micah Hoff MD) Gena Nowak Jul 05, 2017 12:53 Micah Hoff MD Jul 06, 2017 11:19
--- NOTE | 2017-07-05 23:09 | HHI.CCPN ---
Subjective Remarks/Hospital Course 06/15: Acute SAH with a-com aneurysm. Coiled 06/15. 06/16: BP control acceptable. Severe headache, but she gets somnolent after minimal analgesia. Some nausea and vomiting. 06/17: BP control good. Mild permissive hypertension 150s. Persistent headache and anxiety. Patient requests nicoderm patch but I am concerned about promoting unnecessary vasospasm. 06/18: Sudden onset altered mental status. Patient complaining of head ache and turning in bed, somewhat decreased level of consciousness. Transcranial Doppler did not show vasospasm today morning. Continue permissive hypertension. Stat CT of the head and CT angiogram ordered and discussed with interventional radiology Dr. Sanderson. (Dr. Yen in [place]) 06/19: Blood pressure in good range.TCDs today. Start TFs. 06/20: TCD 06/19 showed increase in the degree of vasospasm on the left, and decrease in degree of vasospasm on the right since the prior exam from one day ago. Getting CTA brain today. Remains on vasopressin and Emil-Synephrine to maintain systolic blood pressure 160-180. EVD drained 182 mL in 24 hours, ICP well controlled. UO 7L in 24 hours 06/21: Remains extremely critical. Profound shock, on 4 pressors to maintain SBP >110. On norepinephrine, dopamine, Emil-Synephrine and vasopressin. Unable to obtain target systolic blood pressure more than 160. Patient was started on Zosyn yesterday added vancomycin today. Teixeira cultures sent stress dose hydrocortisone started. Start Ben-trac monitoring. UO >12 L in 24 hours, osmolality studies not consistent with DI joseph though partial DI is possible. Check urine sp gravity and osm again. and Start scheduled DDAVP is suggestive of DI. Family updated in detail 06/22: Overnight developed worsening hypoxemia, refractory to conventional ventilator modes. With PEEP of 12 and FiO2 100% saturation remained in low 80s. Dr. Rodriguez placed on BiLevel (APPV) with improvement in oxygen saturation 90 % and no CO2 retention. I evaluated the patient with bedside ultrasound which showed moderate to large bilateral pleural effusions. Changed mode to PCV to avoid pneumothorax while placing chest tube. After this I placed 10 [place] pigtail catheter on the right side with immediate drainage of total 900 mL clear pleural fluid. Postprocedure oxygen saturation improved to 100% immediately, I was able to reduce the Insp pressure to 30. I will proceed with L pigtail chest tube after CXR confirms no complications 06/23: Remains intubated heavily sedated. Oxygenation improved after bilateral pigtail chest tube placement yesterday. R drained 1.1L and L 0.9L. lowering doses of Levophed and vasopressin. Discontinue vasopressin today 06/24: Heavy sedation limiting neuro exam. Decreasing pressor requirement as patient is maintaining blood pressure. Urine output adequate. Sodium 158 discontinue 3% saline 06/25: Continues to have no evidence of vasospasm. Coming off pressors. Sedation held now. Sodium 155. Overall continues to be positive fluid balance. We'll give IV Bumex 2 mg 1 with potassium replacement and stop all IV fluids. target SBP 140-150 06/26: Patient examined of sedation. White count slightly going up C. difficile positive chest x-ray shows some edema will do repeat dose of Bumex. Systolic blood pressure 140-160 maintained on Cardene infusion 06/27: WBC improving. hemodynamically stable. Remains intubated and critically ill. Urine output excellent with Bumex yesterday. Will give additional dose of Bumex today. 06/28: Improving neuro exam. Today off sedation patient able to follow commands very weakly 4. Cleared for Lovenox by Dr. Hoff. Maintaining systolic blood pressure less than 160 without Cardene 06/29 Lethargic but follows commands with all extremities. Temp max 99.1. WBC 17.3 Back on cardene 3 mg/hr. 06/30 NSG challenging EVD to 20 cm. Sneed was replaced earlier today due to occlusion. Now temp 101. CSF culture from 06/29 NGTD. Cultured blood and urine. On flagyl/vanc for C diff. Off cardene. She tolerated CPAP 15/5 all day yesterday. Tolerating 10/5, adjust to 5/5 now. She follows commands and is more consistent with following commands today than yesterday so seems to be improving. Still with eyes primarily shut but will open and track when stimulated. TCD neg for vasospasm 07/01 Continues to make neurologic improvement. More alert today with spontaneous eye opening, tracking, nodding to questions. Following commands by moving all extremities. Tolerated CPAP 5/5 for two hours yesterday. Placing on CPAP. Temp max 101.1. NSG clamping ventric. 07/02: no changes. remains off the vent with stable neuro exam which is intact. no complaints. head CT today with increase in ventricle size, EVD reopened. will need VPS. 07/03: neuro exam stable. I discussed the care with Dr. Hoff and plan a second trial of clamp trial EVD and if she fails again, VPS on Wednesday. otherwise continues to improve. 07/04: neuro exam stable. VPS clamped x 24h. radiology read on CT head without change in ventricle size. neurosurgery to evaluate CT head. diarrhea is worsening despite IV flagyl and PO vanc. will need to re-insert rectal tube. Subjective: 07/05: much more somnolent this morning, RASS -3. EVD re-opened. clinically failing clamp trial. plan for VPS tomorrow. Objective Vital Signs Date Time Temp Pulse Resp B/P Pulse Ox O2 Delivery O2 Flow Rate FiO2 07/05/17 20:51 95 21 07/05/17 20:00 84 07/05/17 20:00 99.9 18 149/71 07/05/17 19:00 Room Air 07/02/17 08:05 2.00 Intake and Output 07/04/17 07/04/17 07/05/17 08:00 16:00 00:00 Intake Total 369 ml 1743 ml 302 ml Output Total 0 ml Balance 369 ml 1743 ml 302 ml Result Diagram: 07/05/17 1030 07/05/17 0440 Objective Remarks Gen: female lying in bed, somnolent. SKIN: Ecchymosis overlying left lateral thigh. Head: Atraumatic. EVD in place on Right + 10 cm, fluid noncloudy. ICP well controlled Neck: trachea midline. Lungs: CTA. unlabored. Heart: normal rate, regular, sinus by tele. No JVD. Abdomen: Soft, nondistended, no guarding. : Sneed in place with yellow urine output. Extremities: Peripheral pulses are palpable. No significant peripheral edema. Neuro: Pupils are equal reactive. RASS -3. somnolent. not following commands this morning. 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 Somnolence improved once EVD re-opened. talked with neurosurgery: plan for VPS tomorrow. needs placement. Plan: NEURO Extensive SAH secondary to ruptured ACOM aneurysm Left frontal intraparenchymal hemorrhage, with edema Mild Vasospasm, now resolved - 5x4x3 mm ACOM aneurysm successfully treated with coil embolization. - Transcranial Doppler c/w vasospasm on the left side 06/19/17, stat CTA 06/20 no significant vasospasm. Since then serial TCD had been neg for vasospasm - CT head on 06/18/17 had shown left frontal vasogenic edema and intraparenchymal hemorrhage, rpt 06/21 unchanged - Systolic blood pressure target 140-160 - Continue Nimotop at 60 mg po q4. - On Keppra 500 q12 per tube. - Keep sodium normal. Continue sodium 1 gram tab per tube qid -Ventric reopened 07/02 due to hydrocephalus. re-clamped 07/03. - CT head 07/03 no change. CVS: Severe shock-now resolved Fluid overload, improved. - Off all pressors. - Echo EF 65-70% - Nimodipine 60 mg by mouth every 4 hours. - metoprolol 12.5 q8 hours. Labetalol/hydralazine prn SBP >160. RESP: Acute hypoxemic respiratory failure Bilateral pleural effusion HCAP - Intubated for airway protection 06/18/17, extubated 07/01. - S/p bilateral pigtail chest tubes with approximately 1 L each removed 06/22/17 , output declined L chest tube removed 06/29. R chest tube removed 06/30. -CXR 07/01 worsening LLL opacity concerning for HCAP. broadened abx 07/01 - DuoNeb every 6 hours and when necessary ventilator bundle. HOB elevated. - Discontinued stress dose steroids 06/26 GI: C. difficile diarrhea - Was JEvity 1.5 @ 40/hr with beneprotein per nutrition recs, now tolerating regular diet. IV Protonix -Speech eval - replace dignishield as skin is starting to breakdown and still with copious diarrhea. - C. difficile positive . On Flagyl IV, vancomycin by mouth. FEN/RENAL: Severe hypokalemia, resolved. Hypomagnesemia, resolved - Sneed for accurate intake output. Sneed was replaced 06/30 due to obstruction. - Sneed d/c'd 07/03. - Electrolyte replacement per protocol. ID/HEME: Staph aureus pneumonia C. difficile diarrhea - IV Flagyl started 06/26 #9. Vancomycin by mouth started 06/28 #7. -treated for MSSA pneumonia 06/20 - 06/29. CSF culture from 06/29 negative to date. Procalcitonin 0.25 on 06/28, repeat 07/02 0.24 - Venous scan shows left basilic and right cephalic thrombus. Not a candidate for full anticoagulation. Continue on Lovenox 40 mg subcutaneous daily ENDO: Euglycemic Proph: - Lovenox 40 mg sq daily was started on 06/28/17 - SCDs. - Protonix 40 mg IV daily for stress ulcer prophylaxis. ACCESS: piv x 2. Overall impression: Extensive SAH associated with ACOM aneurysm, clinically starting to improve. PT consult. likely needs VPS. Frank Meza MD Jul 05, 2017 23:09
[2017-07-06] VITALS (11 sets, daily range): BP systolic 124–147; BP diastolic 67–81; PULSE 73–93; RESP 12–19; TEMP 97.7–99.2; O2SAT 94–100
[2017-07-06] MEDS: niMODipine 30 MG CAP PO SCH ×6 (00:19→20:37)
[2017-07-06] MEDS: METOPROLOL TARTRATE 25 MG TAB PO SCH ×3 (01:00→18:28)
[2017-07-06] MEDS: CHLORHEXIDINE GLUCONATE 2 % 1 PACK (2 CLOTHS) TOP SCH (03:47)
[2017-07-06] MEDS: VANCOMYCIN 1,000 MG/NS 250 ML IV SCH ×6 (04:25→18:28)
[2017-07-06] MEDS: metroNIDAZOLE 500 MG INJ 100 ML IV SCH ×3 (04:25→20:39)
[2017-07-06] MEDS: SODIUM CHLORIDE 1 GRAM TAB OG-TUBE SCH ×4 (05:00→23:24)
[2017-07-06 05:05] LABS: HEMATOCRIT 27.7 % (35.0-46.0); MEAN CELL VOLUME 91.5 FL (80.0-100.0); MEAN CORPUSCULAR HEMOGLOBIN 30.7 PG (27.0-34.0); MEAN CORPUSCULAR HGB CONC 33.5 % (32.0-36.0); PLATELET COUNT 696 TH/MM3 (150-450); RED BLOOD COUNT 3.03 MIL/MM3 (4.00-5.30); REVIEW FLAG FINAL
[2017-07-06] MEDS: MAGNESIUM OXIDE 400 MG TAB PO SCH ×3 (05:24→20:37)
[2017-07-06 05:39] LABS: BICARBONATE 26.5 MEQ/L (21.0-32.0); POTASSIUM 3.4 MEQ/L (3.5-5.1)
[2017-07-06] MEDS: FLUCONAZOLE 100 MG TAB PO SCH (07:29)
[2017-07-06] MEDS: POTASSIUM CHLOR 20 MEQ PREMIX 100 ML IV PRN (07:30)
[2017-07-06] MEDS: BENEPROTEIN POWDER 1 PACK G-TUBE SCH ×3 (09:00→18:00)
[2017-07-06] MEDS: DOCUSATE SODIUM 50 MG/SENNA 8.6 MG TAB PO SCH ×2 (09:00→20:37)
[2017-07-06] MEDS: levETIRAcetam 500 MG/5 ML UDC NG SCH ×3 (09:00→20:38)
[2017-07-06] MEDS: POTASSIUM CHLORIDE 25 MEQ EFFERVESCENT TAB PO SCH ×2 (09:00→20:38)
[2017-07-06] MEDS: VANCOMYCIN 500 MG VIAL (FOR ORAL USE ONLY) PO SCH ×4 (09:00→20:38)
[2017-07-06] MEDS: NYSTATIN 100,000 UNIT/GM CREAM 15 GM TOPICAL SCH ×2 (09:00→20:39)
[2017-07-06] MEDS ORDERED: ceFAZolin INJ 1,000 MG VIAL IV ONE (09:38)
[2017-07-06] MEDS ORDERED: LIDOCAINE HCL 1% 50 ML VIAL INFIL ONE (10:04)
[2017-07-06] MEDS ORDERED: GELFOAM SIZE 100 TOPICAL ONE (10:04)
[2017-07-06] MEDS ORDERED: GENTAMICIN SULFATE 80 MG/2 ML VIAL IRRIGATION ONE (10:04)
[2017-07-06] MEDS ORDERED: THROMBIN (TOPICAL) 5,000 UNIT VIAL TOPICAL ONE (10:04)
[2017-07-06] MEDS ORDERED: PROPOFOL 200 MG/20 ML AMP IV ONE (10:40)
[2017-07-06] MEDS ORDERED: ePHEDrine/NS 25 MG/5 ML SYR IV ONE (10:40)
[2017-07-06] MEDS ORDERED: LACTATED RINGER'S 1000 ML INJ 1,000 ML IV ONE (10:41)
[2017-07-06] MEDS ORDERED: PHENYLEPH/NS 1000 MCG/10 ML SYR IV ONE (10:41)
[2017-07-06] MEDS ORDERED: ONDANSETRON HCL 4 MG/2 ML VIAL IV PUSH ONE (10:41)
[2017-07-06] MEDS ORDERED: NEOSTIGMINE 3 MG/3 ML SYR IV ONE (10:41)
[2017-07-06] MEDS: PANTOPRAZOLE SODIUM 40 MG VIAL IV PUSH SCH (11:00)
[2017-07-06] MEDS ORDERED: DO NOT ADM ANY ANTICOAGULANT DRUGS PRN (11:04)
--- NOTE | 2017-07-06 11:12 | PD.OP ---
Operative Report Date of Surgery: Jul 06, 2017 Preoperative Diagnosis: Hydrocephalus Postoperative Diagnosis: Hydrocephalus Procedure: Placement of ventriculoperitoneal shunt Anesthesia: general Surgeon: Micah Hoff White Kid Buffer(s): Enedina Sanches Operation and Findings: INTRAOPERATIVE FINDINGS Clear cerebrospinal fluid with an opening pressure of 200 mm of water. INDICATIONS FOR PROCEDURE Ms. Nevarez is a 57 year old female with history subarachnoid hemorrhage status post rupture of a cerebral aneurysm. She developed chronic communicating hydrocephalus. Her ventriculostomy was challenged in two separate occasions and she developed progressive lethargy, increase in pressures, and enlargement of the ventricles. Upon cerebrospinal fluid drainage there was very significant improvement in her symptoms. A ventriculoperitoneal shunt was indicated The [id number] details of the procedure, its indications, alternatives, risks , and potential complications of the surgery were fully discussed with the patient' family. They fully understood. All their questions were answered. No guarantees were given. They voiced requesting the surgery and signed informed consent. They were offered the alternative of continuing nonsurgical treatment. DETAILS OF THE SURGICAL PROCEDURE After the induction of general anesthesia, endotracheal intubation was performed. A Sneed catheter, bilateral NERY hose and sequential compression devices were placed and kept throughout the procedure. The patient was positioned supine on a 30-80 table with the head over a gel doughnut. All pressure points were carefully padded with eggcrate mattress. The left frontotemporal parietal area was shaved prepped and draped in the usual sterile fashion, as well as the neck, chest and abdomen. A small incision was made in the patient's left upper quadrant with a #10 blade and the dissection was carried out through the subcutaneous tissue and Alejandrina's fascia. The rectus sheath was carefully opened with Metzenbaum scissors and the rectus muscles were split along its fibers. The posterior rectus sheath was elevated and carefully opened. The peritoneum was elevated with mosquitoes and opened in the standard fashion. The peritoneal cavity was visualized and exposed. A pursestring suture was placed around the peritoneal opening. Using a tunneler a subcutaneous tunnel was created connecting the abdominal incision with the planned head incision. A small incision was made in the left frontal area and a self-retaining retractor was placed in the incision. An entry point for the catheter was selected 90 mm posterior to the supraorbital rim and 25 mm lateral to the midline. A TPS drill was used to create the dane hole. The dura was coagulated with the bipolar in a cruciform fashion. A peritoneal catheter was placed in the subcutaneous tunnel previously created. A pocket was created underneath the galea for placement of the valve. A [employer] programmable valve has calibrated at a pressure of 110 mmHg and flushed according to the affirmative action officer's instructions. The valve was secured to the proximal end of the peritoneal catheter using a 2-0 silk. Then, a ventricular catheter was advanced into the ventricular system. A good flow of cerebrospinal fluid was obtained. The catheter was connected to the valve and the connection secured with a 2-0 silk. Cerebrospinal fluid was noted to drip through the distal end of the peritoneal catheter. The peritoneal catheter was placed in the peritoneal cavity under direct visualization. The pursestring suture was carefully adjusted with special care not to strangulate the catheter. The rectus sheath was closed using interrupted 2-0 Vicryl suture. The Alejandrina's fascia was approximated with 3-0 Vicryl, and the subcutaneous with 3-0 Vicryl. The skin was closed with running subcuticular 4-0 Vicryl in the abdomen. The skin incision was closed using interrupted 3-0 Vicryl for the galea and arturo to the skin. At the end of the procedure, the sponge, needle and instrument counts were all correct. The estimated blood was less than 55 cc. No blood transfusion was given. No intraoperative complications occurred. The patient received preoperative prophylactic antibiotics. The patient was then extubated and transferred to the recovery room in stable condition. Micah Hoff MD Jul 06, 2017 11:12
[2017-07-06] MEDS ORDERED: ACETAMINOPHEN/HYDROcodone 325 MG/10 MG TAB PO PRN ×2 (11:45)
[2017-07-06] MEDS ORDERED: MORPHINE SULFATE 4 MG/ML INJ IV PUSH PRN ×2 (11:45)
[2017-07-06] MEDS ORDERED: SODIUM CHLORIDE 0.9% FLUSH 5 ML FLUSH IVF PRN (11:45)
[2017-07-06] MEDS: NS + KCL 20 MEQ INJ 1,000 ML IV SCH ×2 (11:52→20:39)
--- NOTE | 2017-07-06 15:29 | HHI.IDPN ---
Note Infectious Disease Note ID coverage Notes reviewed. Patient is more alert . Had SOAP WORKER shunt placement. D/W RN No fever. Not oriented to place. Ms. Nevarez is a 57-year-old female with past medical history significant for hypertension with SAH, acute VDRF, Antibiotics Flagyl oral Vanco IV and oral Lines Line sites with no e.o infection. Past Medical History Hypertension Tubal ligation Coiling of the aneurysm this admission. External ventricular device placement. Allergies: Coded Allergies: No Known Allergies (Verified , 02/25/16) OBJECTIVE: Vital Signs Date Time Temp Pulse Resp B/P Pulse Ox O2 Delivery O2 Flow Rate FiO2 07/06/17 12:00 74 17 122/69 98 Nasal Cannula 2 07/06/17 11:45 78 12 115/65 98 Nasal Cannula 2 07/06/17 11:30 72 12 114/60 96 Nasal Cannula 2 07/06/17 11:15 76 12 114/61 97 Nasal Cannula 2 07/06/17 11:08 97.5 81 12 106/56 95 Simple Mask 5 07/06/17 08:00 98.7 85 16 145/70 94 07/06/17 08:00 85 07/06/17 07:00 94 Room Air 07/06/17 06:00 88 07/06/17 04:00 84 07/06/17 04:00 98.3 80 19 147/81 97 07/06/17 02:00 88 07/06/17 00:00 98.7 84 18 140/74 98 07/06/17 00:00 84 07/05/17 22:00 90 07/05/17 20:51 95 21 07/05/17 20:00 84 07/05/17 20:00 99.9 84 18 149/71 98 07/05/17 19:00 97 Room Air 07/05/17 18:00 78 07/05/17 16:00 99.9 88 18 133/73 98 07/05/17 16:00 88 Laboratory Tests Test 07/05/17 07/06/17 10:30 04:39 White Blood Count 10.1 TH/MM3 11.0 TH/MM3 Red Blood Count 3.04 MIL/MM3 3.03 MIL/MM3 Hemoglobin 9.4 GM/DL 9.3 GM/DL Hematocrit 28.0 % 27.7 % Mean Corpuscular Volume 92.0 FL 91.5 FL Mean Corpuscular Hemoglobin 30.8 PG 30.7 PG Mean Corpuscular Hemoglobin 33.4 % 33.5 % Concent Red Cell Distribution Width 15.0 % 15.0 % Platelet Count 677 TH/MM3 696 TH/MM3 Mean Platelet Volume 7.8 FL 7.6 FL Laboratory Tests Test 07/04/17 07/05/17 07/06/17 21:12 04:40 04:39 Potassium Level 3.6 MEQ/L 4.5 MEQ/L 3.4 MEQ/L Sodium Level 140 MEQ/L 137 MEQ/L Chloride Level 105 MEQ/L 102 MEQ/L Carbon Dioxide Level 23.9 MEQ/L 26.5 MEQ/L Anion Gap 11 MEQ/L 9 MEQ/L Blood Urea Nitrogen 12 MG/DL 13 MG/DL Creatinine 0.38 MG/DL 0.31 MG/DL Estimat Glomerular Filtration 173 ML/MIN 219 ML/MIN Rate Random Glucose 93 MG/DL 93 MG/DL Calcium Level 8.7 MG/DL 8.9 MG/DL Microbiology Date/Time Procedure Status Source Growth 07/06/17 10:25 Cancelled Fluid Other 07/06/17 10:25 Gram Stain - Final Resulted Cerebral Spinal Fluid Lumbar Puncture 07/06/17 10:25 CSF Culture Resulted Cerebral Spinal Fluid Lumbar Puncture Pending Imaging Head CT 07/04/17 0600 Signed Impressions: Service Date/Time: Tuesday, July 04, 2017 04:49 - CONCLUSION: 1. No evidence of acute intracranial pathology. No masses are identified. 2. Decreasing subarachnoid hemorrhage 3. Stable ventricular size Mp Hassan MD Physical Exam GENERAL: Patient is awake. No distress. SKIN: No rash. HEENT: No icterus. Reactive to light. NECK: Supple, no adenopathy. CHEST: Clear breath sounds. CARDIAC. Nl S1S2. No murmurs. ABDOMEN: Soft, (+) bowel sounds, non tender. EXTREMITIES: No CCE. NEURO: Non responsive. Assessment & Plan Remarks Sepsis ? New HCAP. New infiltrate, new fevers, elevated WBC. Aspiration Pneumonia on admission. MSSA Cdiff positive diarrhea C.albicans UTI. Sneed changed when pt had fevers. Acute resp failure. Acute encephalopathy: Acute SAH, metabolic, infection. Acute SAH s/p aneurysm coiling. Staph epi low grade bacteremia, doubt clin significance Fever improved. Leukocytosis improved. Recs: Continue Vanco IV (15-20 target) for now. Continue Flagyl IV Oral vanco for Cdiff. Monitor temps. Follow clinically. Winston Sheldon MD Jul 06, 2017 15:29
[2017-07-06] MEDS ORDERED: fentaNYL CITRATE 250 MCG/5 ML AMP ONE (16:54)
[2017-07-06] MEDS: ceFAZolin 2 GM PREMIX 50 ML IV SCH (18:28)
[2017-07-06] MEDS: SODIUM CHLORIDE 0.9% FLUSH 5 ML FLUSH IVF SCH (20:39)
--- NOTE | 2017-07-06 21:00 | HHI.CCPN ---
Subjective Remarks/Hospital Course 06/15: Acute SAH with a-com aneurysm. Coiled 06/15. 06/16: BP control acceptable. Severe headache, but she gets somnolent after minimal analgesia. Some nausea and vomiting. 06/17: BP control good. Mild permissive hypertension 150s. Persistent headache and anxiety. Patient requests nicoderm patch but I am concerned about promoting unnecessary vasospasm. 06/18: Sudden onset altered mental status. Patient complaining of head ache and turning in bed, somewhat decreased level of consciousness. Transcranial Doppler did not show vasospasm today morning. Continue permissive hypertension. Stat CT of the head and CT angiogram ordered and discussed with interventional radiology Dr. Sanderson. (Dr. Yen in OR) 06/19: Blood pressure in good range.TCDs today. Start TFs. 06/20: TCD 06/19 showed increase in the degree of vasospasm on the left, and decrease in degree of vasospasm on the right since the prior exam from one day ago. Getting CTA brain today. Remains on vasopressin and Emil-Synephrine to maintain systolic blood pressure 160-180. EVD drained 182 mL in 24 hours, ICP well controlled. UO 7L in 24 hours 06/21: Remains extremely critical. Profound shock, on 4 pressors to maintain SBP >110. On norepinephrine, dopamine, Emil-Synephrine and vasopressin. Unable to obtain target systolic blood pressure more than 160. Patient was started on Zosyn yesterday added vancomycin today. Teixeira cultures sent stress dose hydrocortisone started. Start Ben-trac monitoring. UO >12 L in 24 hours, osmolality studies not consistent with DI joseph though partial DI is possible. Check urine sp gravity and osm again. and Start scheduled DDAVP is suggestive of DI. Family updated in detail 06/22: Overnight developed worsening hypoxemia, refractory to conventional ventilator modes. With PEEP of 12 and FiO2 100% saturation remained in low 80s. Dr. Rodriguez placed on BiLevel (APPV) with improvement in oxygen saturation 90 % and no CO2 retention. I evaluated the patient with bedside ultrasound which showed moderate to large bilateral pleural effusions. Changed mode to PCV to avoid pneumothorax while placing chest tube. After this I placed 10 Russian pigtail catheter on the right side with immediate drainage of total 900 mL clear pleural fluid. Postprocedure oxygen saturation improved to 100% immediately, I was able to reduce the Insp pressure to 30. I will proceed with L pigtail chest tube after CXR confirms no complications 06/23: Remains intubated heavily sedated. Oxygenation improved after bilateral pigtail chest tube placement yesterday. R drained 1.1L and L 0.9L. lowering doses of Levophed and vasopressin. Discontinue vasopressin today 06/24: Heavy sedation limiting neuro exam. Decreasing pressor requirement as patient is maintaining blood pressure. Urine output adequate. Sodium 158 discontinue 3% saline 06/25: Continues to have no evidence of vasospasm. Coming off pressors. Sedation held now. Sodium 155. Overall continues to be positive fluid balance. We'll give IV Bumex 2 mg 1 with potassium replacement and stop all IV fluids. target SBP 140-150 06/26: Patient examined of sedation. White count slightly going up C. difficile positive chest x-ray shows some edema will do repeat dose of Bumex. Systolic blood pressure 140-160 maintained on Cardene infusion 06/27: WBC improving. hemodynamically stable. Remains intubated and critically ill. Urine output excellent with Bumex yesterday. Will give additional dose of Bumex today. 06/28: Improving neuro exam. Today off sedation patient able to follow commands very weakly 4. Cleared for Lovenox by Dr. Hoff. Maintaining systolic blood pressure less than 160 without Cardene 06/29 Lethargic but follows commands with all extremities. Temp max 99.1. WBC 17.3 Back on cardene 3 mg/hr. 06/30 NSG challenging EVD to 20 cm. Sneed was replaced earlier today due to occlusion. Now temp 101. CSF culture from 06/29 NGTD. Cultured blood and urine. On flagyl/vanc for C diff. Off cardene. She tolerated CPAP 15/5 all day yesterday. Tolerating 10/5, adjust to 5/5 now. She follows commands and is more consistent with following commands today than yesterday so seems to be improving. Still with eyes primarily shut but will open and track when stimulated. TCD neg for vasospasm 07/01 Continues to make neurologic improvement. More alert today with spontaneous eye opening, tracking, nodding to questions. Following commands by moving all extremities. Tolerated CPAP 5/5 for two hours yesterday. Placing on CPAP. Temp max 101.1. NSG clamping ventric. 07/02: no changes. remains off the vent with stable neuro exam which is intact. no complaints. head CT today with increase in ventricle size, EVD reopened. will need VPS. 07/03: neuro exam stable. I discussed the care with Dr. Hoff and plan a second trial of clamp trial EVD and if she fails again, VPS on Wednesday. otherwise continues to improve. 07/04: neuro exam stable. VPS clamped x 24h. radiology read on CT head without change in ventricle size. neurosurgery to evaluate CT head. diarrhea is worsening despite IV flagyl and PO vanc. will need to re-insert rectal tube. 07/05: much more somnolent this morning, RASS -3. EVD re-opened. clinically failing clamp trial. plan for VPS tomorrow. Subjective: 07/06: to OR today for VPS. seen post-op. awake, alert, oriented x 3. much more awake than I saw her yesterday. denies complaints. denies headache. discussed case with Dr. Hoff, and he is comfortable sending her to rehab tomorrow if stable. Objective Vital Signs Date Time Temp Pulse Resp B/P Pulse Ox O2 Delivery O2 Flow Rate FiO2 07/06/17 20:01 97 21 07/06/17 18:00 93 07/06/17 16:00 98.2 12 141/67 07/06/17 12:00 Nasal Cannula 2 Intake and Output 07/05/17 07/05/17 07/06/17 08:00 16:00 00:00 Intake Total 774 ml 601 ml 314 ml Output Total 2025 ml 930 ml 328 ml Balance -1251 ml -329 ml -14 ml Result Diagram: 07/06/17 0439 07/06/17 0439 Objective Remarks Gen: female sitting in bed, awake, alert. SKIN: Ecchymosis overlying left lateral thigh. Head: wrapped in kerlix. Neck: trachea midline. Lungs: CTA. unlabored. Heart: normal rate, regular, sinus by tele. No JVD. Abdomen: Soft, nondistended, no guarding. : Sneed in place with yellow urine output. Extremities: Peripheral pulses are palpable. No significant peripheral edema. Neuro: Pupils are equal reactive. RASS 0. awake, alert, oriented. fc x 4. 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 clinically stable. per my discussion with dr. Hoff, can likely go to rehab tomorrow or very near future. still with treatment for C. Diff. will transfer to hospitalist services, and likely out of ICU tomorrow. Plan: NEURO Extensive SAH secondary to ruptured ACOM aneurysm Left frontal intraparenchymal hemorrhage, with edema Mild Vasospasm, now resolved - 5x4x3 mm ACOM aneurysm successfully treated with coil embolization. - Transcranial Doppler c/w vasospasm on the left side 06/19/17, stat CTA 06/20 no significant vasospasm. Since then serial TCD had been neg for vasospasm - CT head on 06/18/17 had shown left frontal vasogenic edema and intraparenchymal hemorrhage, rpt 06/21 unchanged - Systolic blood pressure target 140-160 - Continue Nimotop at 60 mg po q4. - On Keppra 500 q12 per tube. - Keep sodium normal. Continue sodium 1 gram tab per tube qid s/p VPS 07/06. CVS: Severe shock-now resolved Fluid overload, improved. - Off all pressors. - Echo EF 65-70% - Nimodipine 60 mg by mouth every 4 hours. - metoprolol 12.5 q8 hours. Labetalol/hydralazine prn SBP >160. RESP: Acute hypoxemic respiratory failure Bilateral pleural effusion HCAP - Intubated for airway protection 06/18/17, extubated 07/01. - S/p bilateral pigtail chest tubes with approximately 1 L each removed 06/22/17 , output declined L chest tube removed 06/29. R chest tube removed 06/30. -CXR 07/01 worsening LLL opacity concerning for HCAP. broadened abx 07/01 - DuoNeb every 6 hours and when necessary ventilator bundle. HOB elevated. - Discontinued stress dose steroids 06/26 GI: C. difficile diarrhea - Was JEvity 1.5 @ 40/hr with beneprotein per nutrition recs, now tolerating regular diet. IV Protonix -Speech eval - replace dignishield as skin is starting to breakdown and still with copious diarrhea. - C. difficile positive . On Flagyl IV, vancomycin by mouth. FEN/RENAL: Severe hypokalemia, resolved. Hypomagnesemia, resolved - Sneed for accurate intake output. Sneed was replaced 06/30 due to obstruction. - Sneed d/c'd 07/03. - Electrolyte replacement per protocol. ID/HEME: Staph aureus pneumonia C. difficile diarrhea - IV Flagyl started 06/26 #9. Vancomycin by mouth started 06/28 #7. -treated for MSSA pneumonia 06/20 - 06/29. CSF culture from 06/29 negative to date. Procalcitonin 0.25 on 06/28, repeat 07/02 0.24 - Venous scan shows left basilic and right cephalic thrombus. Not a candidate for full anticoagulation. Continue on Lovenox 40 mg subcutaneous daily ENDO: Euglycemic Proph: - Lovenox 40 mg sq daily was started on 06/28/17 - SCDs. - Protonix 40 mg IV daily for stress ulcer prophylaxis. ACCESS: piv x 2. Overall impression: Extensive SAH associated with ACOM aneurysm, clinically improving. PT consult. s/p VPS. ready for floor and rehab. Frank Meza MD Jul 06, 2017 21:00
[2017-07-07] VITALS (14 sets, daily range): BP systolic 124–145; BP diastolic 62–76; PULSE 73–89; RESP 18–30; TEMP 98.5–99.2; O2SAT 96–99
[2017-07-07] MEDS: METOPROLOL TARTRATE 25 MG TAB PO SCH ×3 (00:06→17:30)
[2017-07-07] MEDS: niMODipine 30 MG CAP PO SCH ×7 (00:06→23:10)
[2017-07-07] MEDS: ceFAZolin 2 GM PREMIX 50 ML IV SCH ×2 (01:58→08:27)
[2017-07-07] MEDS: VANCOMYCIN 1,000 MG/NS 250 ML IV SCH ×4 (03:50→12:00)
[2017-07-07] MEDS: metroNIDAZOLE 500 MG INJ 100 ML IV SCH ×2 (03:50→12:09)
[2017-07-07] MEDS: CHLORHEXIDINE GLUCONATE 2 % 1 PACK (2 CLOTHS) TOP SCH (04:00)
[2017-07-07 04:41] LABS: HEMATOCRIT 27.1 % (35.0-46.0); MEAN CELL VOLUME 91.3 FL (80.0-100.0); MEAN CORPUSCULAR HEMOGLOBIN 30.6 PG (27.0-34.0); MEAN CORPUSCULAR HGB CONC 33.5 % (32.0-36.0); PLATELET COUNT 683 TH/MM3 (150-450); RED BLOOD COUNT 2.97 MIL/MM3 (4.00-5.30); RED CELL DISTRIBUTION WIDTH 15.1 % (11.6-17.2); REVIEW FLAG FINAL; WHITE BLOOD COUNT 10.8 TH/MM3 (4.0-11.0)
[2017-07-07] MEDS: SODIUM CHLORIDE 1 GRAM TAB OG-TUBE SCH ×5 (05:00→22:15)
[2017-07-07 05:06] LABS: BICARBONATE 28.8 MEQ/L (21.0-32.0); POTASSIUM 3.7 MEQ/L (3.5-5.1)
--- NOTE | 2017-07-07 05:22 | RADRPT ---
EXAM DATE/TIME: 07/07/2017 05:11 [facility] COMPARISON: CT BRAIN W/O CONTRAST, July 04, 2017, 4:49. INDICATIONS : Evaluate for hydrocephalus. RADIATION DOSE: 49.51 CTDIvol (mGy) MEDICAL HISTORY : Aneurysm, intracranial. Cardiovascular disease Hypertension. SURGICAL HISTORY : TOOL SUPERVISOR shunt. Anuersym coiling ENCOUNTER: Initial ACUITY: 1 day PAIN SCALE: Non-responsive LOCATION: TECHNIQUE: Multiple contiguous axial images were obtained of the head. Using automated exposure control and adj ustment of the mA and/or kV according to patient size, radiation dose was kept as low as reasonably a chievable to obtain optimal diagnostic quality images. DICOM format image data is available electro nically for review and comparison. FINDINGS: The right frontal ventriculostomy catheter has been removed. A TOOL SUPERVISOR shunt is been placed from a left fr ontal approach with tip terminating in the right basal ganglia region. There is a small amount of pne umocephalus in the frontal region and subcutaneous emphysema left frontal and temporal scalp overlyin g skin arturo. There is a focal low attenuation area in the right basal ganglia again seen. There is hypodensity in the left frontal lobe again noted. There is subarachnoid hemorrhage again seen but de creased in prominence. The third ventricle and lateral ventricles are decreased in caliber since the previous study. There is no midline shift. CONCLUSION: 1. Decreased ventriculomegaly with TOOL SUPERVISOR shunt catheter placement as above. 2. Decreased conspicuity of subarachnoid hemorrhage. Keegan Bray MD on July 07, 2017 at 5:19 Board Certified Radiologist. This report was verified electronically.
[2017-07-07] MEDS: MAGNESIUM OXIDE 400 MG TAB PO SCH ×4 (05:49→22:15)
[2017-07-07] MEDS: FLUCONAZOLE 100 MG TAB PO SCH (08:24)
[2017-07-07] MEDS: POTASSIUM CHLORIDE 25 MEQ EFFERVESCENT TAB PO SCH ×2 (08:24→19:26)
[2017-07-07] MEDS: VANCOMYCIN 500 MG VIAL (FOR ORAL USE ONLY) PO SCH ×4 (08:24→19:26)
[2017-07-07] MEDS: levETIRAcetam 500 MG/5 ML UDC NG SCH ×2 (08:25→19:26)
[2017-07-07] MEDS: DOCUSATE SODIUM 50 MG/SENNA 8.6 MG TAB PO SCH ×2 (08:26→19:26)
[2017-07-07] MEDS: SODIUM CHLORIDE 0.9% FLUSH 5 ML FLUSH IVF SCH ×2 (08:26→19:26)
[2017-07-07] MEDS: NYSTATIN 100,000 UNIT/GM CREAM 15 GM TOPICAL SCH ×2 (08:27→19:27)
[2017-07-07] MEDS: NS + KCL 20 MEQ INJ 1,000 ML IV SCH ×2 (08:28→17:30)
[2017-07-07] MEDS: BENEPROTEIN POWDER 1 PACK G-TUBE SCH ×3 (09:00→17:30)
[2017-07-07] MEDS ORDERED: PANTOPRAZOLE SODIUM 40 MG VIAL IVP SCH (09:00)
--- NOTE | 2017-07-07 11:50 | HHI.NSPN ---
(Gena Nowak) Note Status Status: Progress Note (Gena Nowak) Interval History Interval History 57-year-old female admitted 06/15/17 with acute onset severe headache. 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 06/15/17 endovascular coiling of aneurysm. 06/18/17 patient with increasing confusion, new left frontal interparenchymal hemorrhage with surrounding edema on follow-up CT scan. Patient intubated for airway control. Ventriculostomy placed. 06/20/17: Remains intubated, mechanical ventilation, intravenous sedation. 06/21/17: possible septic shock, on multiple pressors. EVD draining well, bloody CSF, ICP wnl. f/u CTA Head yesterday neg for vasospasm. TCDs this morning pending. Sedation turned off 30 mins ago when rounded, no eye opening, not following commands, no withdrawals to extremities. 06/23/17: pressors being weaned off, s/p chest tube placement for severe pleural effusions. ICPs remains wnl. EVD draining well. Remains sedated. TCD this am. 06/28/17: per nursing report neuro checks improving, patient opening eyes and starting to follow commands. EVD continues to drain well, stable ICPs. 06/30/17: challenging ventriculostomy drain, CSF is clearing up, 07/02/17: EVD clamped yesterday morning, f/u CT Head this am completed 07/03/17: family would like to rechallenge EVD prior to VIOLENT CRIMES DETECTIVE shunt 07/04/17: f/u CT Head completed, ICPs stable overnight, neuro exam unchanged. patient positive for C. Dif and with multiple loose stools 07/05/17: mental status worse today, not opening eyes, not following commands. EVD remained clamped overnight 07/07/17: s/p placement of left ventriculoperitoneal shunt on 07/06/17. Lethargic overnight, but doing much better this morning during rounds, conversing slightly. (Gena Nowak) Labs, Micro, & Vital Signs Results Date Time Temp Pulse Resp B/P Pulse Ox O2 Delivery O2 Flow Rate FiO2 07/07/17 07:38 98 21 07/07/17 06:00 75 07/07/17 04:00 85 07/07/17 04:00 99.0 85 18 145/73 96 07/07/17 02:00 82 07/07/17 00:00 85 07/07/17 00:00 98.6 85 30 139/75 96 07/06/17 22:00 76 07/06/17 20:01 97 21 07/06/17 20:00 84 07/06/17 20:00 99.2 84 17 134/70 98 07/06/17 19:00 98 Room Air 07/06/17 18:00 93 07/06/17 16:00 87 07/06/17 16:00 98.2 73 12 141/67 100 07/06/17 12:00 74 17 122/69 98 Nasal Cannula 2 07/06/17 12:00 97.7 73 19 124/68 100 07/06/17 12:00 73 07/06/17 11:45 78 12 115/65 98 Nasal Cannula 2 07/07/17 07:00 Intake Total 3558 ml Output Total 5100 ml Balance -1542 ml Constitutional Vital Signs Date Time Temp Pulse Resp B/P Pulse Ox O2 Delivery O2 Flow Rate FiO2 07/07/17 07:38 98 21 07/07/17 06:00 75 07/07/17 04:00 85 07/07/17 04:00 99.0 85 18 145/73 96 07/07/17 02:00 82 07/07/17 00:00 85 07/07/17 00:00 98.6 85 30 139/75 96 07/06/17 22:00 76 07/06/17 20:01 97 21 07/06/17 20:00 84 07/06/17 20:00 99.2 84 17 134/70 98 07/06/17 19:00 98 Room Air 07/06/17 18:00 93 07/06/17 16:00 87 07/06/17 16:00 98.2 73 12 141/67 100 07/06/17 12:00 74 17 122/69 98 Nasal Cannula 2 07/06/17 12:00 97.7 73 19 124/68 100 07/06/17 12:00 73 07/06/17 11:45 78 12 115/65 98 Nasal Cannula 2 07/07/17 07:00 Intake Total 3558 ml Output Total 5100 ml Balance -1542 ml (Gena Nowak) Review of Systems/Exam Exam Awake, conversing slightly. Nods appropriately. Motor: moves all four extremities Surgical incisions clean and dry with dressing (Gena Nowak) Medications Current Medications Current Medications Medications (Trade) Dose Ordered Sig/Doris Route PRN Reason Start Time Stop Time Status Last Admin Dose Admin Ondansetron HCl (Zofran Inj) 4 mg Q6H PRN IV NAUSEA OR VOMITING 06/15/17 13:30 06/18/17 13:00 Miscellaneous Information 1 Q361D XX 06/15/17 13:30 Chlorhexidine Gluconate (Chlorhexidine 2% Cloth) 3 pack Taper DAILY@04 TOP 06/16/17 04:00 06/12/18 03:59 07/07/17 04:00 Chlorhexidine Gluconate (Chlorhexidine 2% Cloth) 3 pack UNSCH PRN [facility] 06/15/17 13:30 Senna/Docusate Sodium (Prabha-Colace) 1 tab BID PO 06/15/17 21:00 07/06/17 20:37 Magnesium Hydroxide (Milk Of Magnesia Liq) 30 ml Q12H PRN PO MILD - MODERATE CONSTIPATION 06/15/17 13:30 Hold Sennosides (Senokot) 17.2 mg Q12H PRN PO MODERATE - SEVERE CONSTIPATION 06/15/17 13:30 Hold Bisacodyl (Dulcolax Supp) 10 mg DAILY PRN RECTAL SEVERE CONSITIPATION 06/15/17 13:30 Lactulose (Lactulose Liq) 30 ml DAILY PRN PO SEVERE CONSITIPATION 06/15/17 13:30 Hold Labetalol HCl 10 mg 10 mg Q1H PRN IV PUSH SBP >160 06/15/17 13:30 07/01/17 00:29 Potassium Chloride 100 ml @ 50 mls/hr Q2H PRN IV For Potassium 2.8 - 3.2 mEq/L 06/18/17 05:30 07/02/17 08:57 Potassium Chloride (KCl 20 Meq Premix Inj) 100 ml @ 50 mls/hr Q2H PRN IV For Potassium 2.8 - 3.2 mEq/L 06/18/17 05:30 07/06/17 07:30 Potassium Bicarb/ Potassium Chloride 50 meq 50 meq UNSCH PRN PO For Potassium 3.3 - 3.5 mEq/L 06/18/17 05:30 06/20/17 17:59 Potassium Chloride 100 ml @ 25 mls/hr UNSCH PRN IV For Potassium 3.3 - 3.5 mEq/L 06/18/17 05:30 06/30/17 12:54 Potassium Chloride 100 ml @ 50 mls/hr Q2H PRN IV For Potassium 3.3 - 3.5 mEq/L 06/18/17 05:30 Magnesium Sulfate/ Sodium Chloride (Magnesium Sulfate Inj/NS Inj) 100 ml @ 50 mls/hr UNSCH PRN IV For Magnesium 0.9 - 1.1 mg/dL 06/18/17 05:30 Magnesium Oxide 800 mg 800 mg UNSCH PRN PO For Magnesium 1.2 - 1.6 mg/dL 06/18/17 05:30 Magnesium Sulfate/ Sodium Chloride (Magnesium Sulfate Inj/NS Inj) 100 ml @ 50 mls/hr UNSCH PRN IV For Magnesium 1.2 - 1.6 mg/dL 06/18/17 05:30 06/20/17 18:28 Potassium Phosphate 2000 mg 2,000 mg Q4H PRN PO For Phosphorus < 2.5 mg/dL 06/18/17 05:30 Sodium Phosphate/ Sodium Chloride (Sodium Phosphate Inj/NS 250 ml Inj) 250 ml @ 42 mls/hr UNSCH PRN IV For Phosphorus < 2.5 mg/dL 06/18/17 05:30 07/02/17 08:57 Potassium Phosphate 2000 mg 2,000 mg UNSCH PRN PO/TUBE SEE LABEL COMMENTS 06/18/17 05:30 Potassium Phosphate/Sodium Chloride (Potassium Phosphate Inj/NS 250 ml Inj) 260 ml @ 42 mls/hr UNSCH PRN IV SEE LABEL COMMENTS 06/18/17 05:30 Protein (Beneprotein Powder) 1 pack TID G-TUBE 06/19/17 13:00 07/06/17 13:00 Acetaminophen (Tylenol 650 Mg/ 20 ml Liq) 650 mg Q4H PRN PO Temp > 100.5 06/19/17 12:45 07/03/17 17:10 Terbutaline Sulfate (Brethine Inj) 1 mg UNSCH PRN SQ For Extravasation 06/20/17 17:30 Potassium Bicarb/ Potassium Chloride (K-Lyte Cl Eff) 25 meq Q12HR PO 06/21/17 10:00 07/07/17 08:24 Magnesium Oxide 400 mg 400 mg Q8HR PO 06/21/17 22:00 07/06/17 20:37 Metronidazole (Flagyl 500 Mg Inj) 100 ml @ 100 mls/hr Q8H IV 06/26/17 12:00 07/07/17 03:50 Nimodipine (Nimotop) 60 mg Q4HR PO 06/26/17 12:00 07/07/17 08:24 Vancomycin HCl (VANCOMYCIN for oral use only) 250 mg QID PO 06/28/17 09:00 07/07/17 08:24 Enoxaparin Sodium (Lovenox Inj) 40 mg Q24H SQ 06/28/17 14:00 Hold 07/04/17 14:17 Levetriacetam (Keppra Liq) 500 mg Q12HR NG 06/29/17 21:00 07/07/17 08:25 Sodium Chloride (Sodium Chloride) 1 gm Q6H OG-TUBE 06/30/17 17:00 07/06/17 23:24 Metoprolol Tartrate 12.5 mg 12.5 mg Q8H PO 07/01/17 17:00 07/07/17 08:24 Nicardipine HCl/ Sodium Chloride (Cardene Inj/NS 250 ml Inj) 260 ml @ 0 mls/hr TITRATE IV 07/01/17 09:45 Hydralazine HCl (Apresoline Inj) 10 mg Q4H PRN IV PUSH SBP >160 07/01/17 09:45 Miscellaneous (Pill Splitter) 1 ea UNSCH PRN OTHER SEE LABEL COMMENTS 07/01/17 09:45 Nystatin 1 applic 1 applic Q12HR TOPICAL 07/01/17 11:00 07/07/17 08:27 Pharmacy Profile Note (Vancomycin Consult Pharmacy) 0 ml @ 0 mls/hr UNSCH OTHER 07/01/17 12:00 Fluconazole 100 mg 100 mg DAILY PO 07/01/17 14:00 07/07/17 08:24 Vancomycin HCl/ Sodium Chloride (Vancomycin Inj/ NS 250 ml Inj) 250 ml @ 250 mls/hr Q8H IV 07/03/17 11:00 07/07/17 03:50 Miscellaneous Information SPECIFIC LAB TO BE ... ONCE ONCE .XX 07/08/17 02:45 07/08/17 02:46 Potassium Chloride/Sodium Chloride (NS + KCl 20 Meq Inj) 1,000 ml @ 100 mls/hr Q10H IV 07/06/17 11:41 07/07/17 08:28 IV Flush (NS Flush) 2 ml UNSCH PRN IVF FLUSH AFTER USING IV ACCESS 07/06/17 11:45 IV Flush (NS Flush) 2 ml BID IVF 07/06/17 21:00 07/06/17 20:39 Pantoprazole Sodium (Protonix Inj) 40 mg DAILY IVP 07/07/17 09:00 07/07/17 08:25 Acetaminophen/ Hydrocodone Bitart ([place] 10-325 Mg) 1 tab Q4H PRN PO PAIN SCALE 1 TO 5 07/06/17 11:45 Acetaminophen/ Hydrocodone Bitart ([place] 10-325 Mg) 2 tab Q4H PRN PO PAIN SCALE 6 TO 10 07/06/17 11:45 Morphine Sulfate (Morphine Inj) 2 mg Q2H PRN IV PUSH PAIN SCALE 1 TO 6 07/06/17 11:45 Morphine Sulfate (Morphine Inj) 4 mg Q2H PRN IV PUSH PAIN SCALE 7 TO 10 07/06/17 11:45 Acetaminophen (Tylenol) 650 mg Q4H PRN PO TEMPERATURE > 101.5 F 07/06/17 11:45 (Gena Nowak) Medical Decision Making MDM Remarks 57 y/o female with SAH from ruptured ACOM aneurysm s/p endovascular coiling 06/15 s/p placement of right ventriculostomy drain, challenged EVD and patient's neurological status worsened with evidence of hydrocephalus on CT Head Right EVD removed and underwent placement of left VIOLENT CRIMES DETECTIVE shunt 07/06/17 (Gena Nowak) Plan Plan Remarks repeat CTA Head pending to assess for vasospasm neurologically improving cont serial neuro checks Dr. Hoff discussed with her again in detail today, questions answered, cont PT, OT, ST dc planning to rehab (Gena Nowak) Attending Statement The exam, history, and the medical decision-making described in the above note were completed with the assistance of the mid-level provider. I reviewed and agree with the findings presented. I attest that I had a [id number] encounter with the patient on the same day, and personally performed and documented my assessment and findings in the medical record. (Micah Hoff MD) Gena Nowak Jul 07, 2017 11:50 Micah Hoff MD Jul 10, 2017 17:04
--- NOTE | 2017-07-07 14:20 | HHI.IDPN ---
Note Infectious Disease Note ID coverage Notes reviewed. Patient is awake and alert. answers questions appropriately. Had TIRE GROOVER shunt placement 07/06. D/W RN No fever. (+) stool output in [facility]. Ms. Nevarez is a 57-year-old female with past medical history significant for hypertension with SAH, acute VDRF, Antibiotics Flagyl oral Vanco oral Lines Line sites with no e.o infection. Past Medical History Hypertension Tubal ligation Coiling of the aneurysm this admission. External ventricular device placement. Allergies: Coded Allergies: No Known Allergies (Verified , 02/25/16) OBJECTIVE: Vital Signs Date Time Temp Pulse Resp B/P Pulse Ox O2 Delivery O2 Flow Rate FiO2 07/07/17 07:38 98 21 07/07/17 06:00 75 07/07/17 04:00 85 07/07/17 04:00 99.0 85 18 145/73 96 07/07/17 02:00 82 07/07/17 00:00 85 07/07/17 00:00 98.6 85 30 139/75 96 07/06/17 22:00 76 07/06/17 20:01 97 21 07/06/17 20:00 84 07/06/17 20:00 99.2 84 17 134/70 98 07/06/17 19:00 98 Room Air 07/06/17 18:00 93 07/06/17 16:00 87 07/06/17 16:00 98.2 73 12 141/67 100 07/06/17 07/06/17 07/07/17 15:00 23:00 07:00 Intake Total 1511 ml 1091 ml 956 ml Output Total 2500 ml 1000 ml 1600 ml Balance -989 ml 91 ml -644 ml Intake Oral 120 ml 120 ml IV Total 711 ml 971 ml 836 ml Other 800 ml Output Urine Total 2450 ml 1000 ml 1500 ml Stool Total 100 ml Estimated Blood Loss 50 ml Laboratory Tests Test 07/06/17 07/07/17 04:39 04:06 White Blood Count 11.0 TH/MM3 10.8 TH/MM3 Red Blood Count 3.03 MIL/MM3 2.97 MIL/MM3 Hemoglobin 9.3 GM/DL 9.1 GM/DL Hematocrit 27.7 % 27.1 % Mean Corpuscular Volume 91.5 FL 91.3 FL Mean Corpuscular Hemoglobin 30.7 PG 30.6 PG Mean Corpuscular Hemoglobin 33.5 % 33.5 % Concent Red Cell Distribution Width 15.0 % 15.1 % Platelet Count 696 TH/MM3 683 TH/MM3 Mean Platelet Volume 7.6 FL 7.4 FL Laboratory Tests Test 07/06/17 07/07/17 04:39 04:06 Sodium Level 137 MEQ/L 136 MEQ/L Potassium Level 3.4 MEQ/L 3.7 MEQ/L Chloride Level 102 MEQ/L 101 MEQ/L Carbon Dioxide Level 26.5 MEQ/L 28.8 MEQ/L Anion Gap 9 MEQ/L 6 MEQ/L Blood Urea Nitrogen 13 MG/DL 7 MG/DL Creatinine 0.31 MG/DL 0.39 MG/DL Estimat Glomerular Filtration 219 ML/MIN 168 ML/MIN Rate Random Glucose 93 MG/DL 99 MG/DL Calcium Level 8.9 MG/DL 8.7 MG/DL Microbiology Date/Time Procedure Status Source Growth 07/06/17 10:25 Cancelled Fluid Other 07/06/17 10:25 Gram Stain - Final Resulted Cerebral Spinal Fluid Lumbar Puncture 07/06/17 10:25 CSF Culture - Preliminary Resulted Cerebral Spinal Fluid Lumbar Puncture NO GROWTH IN [address] 07/04/17 0600 Signed Impressions: Service Date/Time: Tuesday, July 04, 2017 04:49 - CONCLUSION: 1. No evidence of acute intracranial pathology. No masses are identified. 2. Decreasing subarachnoid hemorrhage 3. Stable ventricular size Mp Hassan MD Physical Exam GENERAL: Patient is awake. No distress. SKIN: No rash. HEENT: No icterus. NECK: Supple, no adenopathy. CHEST: Clear breath sounds. CARDIAC. Nl S1S2. No murmurs. ABDOMEN: Soft, (+) bowel sounds, non tender. EXTREMITIES: No CCE. NEURO: Awake and following commands. Assessment & Plan Remarks Sepsis. Treated and resolved. ? New HCAP. New infiltrate, new fevers, elevated WBC. Aspiration Pneumonia on admission. MSSA Cdiff positive diarrhea C.albicans UTI. Sneed changed when pt had fevers. Acute resp failure. Acute encephalopathy: Acute SAH, metabolic, infection. Acute SAH s/p aneurysm coiling. Staph epi low grade bacteremia, doubt clin significance Fever improved. Leukocytosis improved. Recs: Stop IV Vanco IV (15-20 target) for now. Continue Flagyl PO another 10 days. Continue oral vanco for Cdiff. another 10 days. Monitor stools. Okay to send to Rehab. Winston Sheldon MD Jul 07, 2017 14:19
--- NOTE | 2017-07-07 15:03 | HHI.PR ---
Subjective Remarks Patient is a 57-year-old female with primary medical history of HTN initially came in with complaints of headache and bilateral lower extremity weakness . CT head reveals diffuse subarachnoid hemorrhage. CTA demonstrates anterior communicating artery aneurysm. Reviewed by Drs. Yen and Aaron, taken directly to interventional radiology for coiling, . Patient was in critical care with multiple medical issues including extensive SAH secondary to ruptured aneurysm, vasospasm, left frontal intraparenchymal hemorrhage with edema status post READING TUTOR shunt, respiratory failure, HCAP, C. difficile diarrhea. Patient clinically improved and now transferred to our care. Patient seen and examined today. Daughter at the bedside. States mother has been doing a lot better, the patient is verbal but now she went back to sleep. Patient eyes closed, but notable facial grimacing to tactile stimulation but otherwise appears to be sleeping comfortably. As per nursing, patient is talking and able to participate with rehabilitation. Patient is also able to swallow pills but with poor appetite, on supplements. Reports to continue to have diarrhea, on Dignashield. Objective Vitals Vital Signs Date Time Temp Pulse Resp B/P Pulse Ox O2 Delivery O2 Flow Rate FiO2 07/07/17 07:38 98 21 07/07/17 06:00 75 07/07/17 04:00 85 07/07/17 04:00 99.0 85 18 145/73 96 07/07/17 02:00 82 07/07/17 00:00 85 07/07/17 00:00 98.6 85 30 139/75 96 07/06/17 22:00 76 07/06/17 20:01 97 21 07/06/17 20:00 84 07/06/17 20:00 99.2 84 17 134/70 98 07/06/17 19:00 98 Room Air 07/06/17 18:00 93 07/06/17 16:00 87 07/06/17 16:00 98.2 73 12 141/67 100 I/O 07/06/17 07/06/17 07/06/17 07/07/17 07/07/17 07/07/17 07:00 15:00 23:00 07:00 15:00 23:00 Intake Total 175 ml 1511 ml 1091 ml 956 ml 340 ml Output Total 1315 ml 2500 ml 1000 ml 1600 ml Balance -1140 ml -989 ml 91 ml -644 ml 340 ml Intake Oral 120 ml 120 ml 240 ml IV Total 175 ml 711 ml 971 ml 836 ml 100 ml Other 800 ml Output Urine Total 1300 ml 2450 ml 1000 ml 1500 ml Stool Total 15 ml 100 ml Estimated Blood Loss 50 ml Result Diagram: 07/07/17 0406 07/07/17 0406 Imaging Last Impressions Head CT 07/07/17 0000 Signed Impressions: Service Date/Time: Friday, July 07, 2017 05:11 - CONCLUSION: 1. Decreased ventriculomegaly with READING TUTOR shunt catheter placement as above. 2. Decreased conspicuity of subarachnoid hemorrhage. Keegan Bray MD Chest X-Ray 07/01/17 0000 Signed Impressions: Service Date/Time: June 10:05 - CONCLUSION: 1. Increased left perihilar and basilar airspace disease since June 2. Probable small effusions. Endotracheal tube, nasogastric tube and right central line in satisfactory position. No pneumothorax. Poncho Aguilera MD Transcranial Doppler Study Complete 06/30/17 0000 Signed Impressions: Service Date/Time: Friday, June 30, 2017 07:45 - CONCLUSION: 1. No evidence for vasospasm. Brown Schuler MD Upper Extremity Ultrasound 06/28/17 0000 Signed Impressions: Service Date/Time: Wednesday, June 28, 2017 09:12 - CONCLUSION: There is thrombus within the left basilic vein and right cephalic vein. Sascha Montez MD Lower Extremity Ultrasound 06/28/17 0000 Signed Impressions: Service Date/Time: Wednesday, June 28, 2017 08:53 - CONCLUSION: Normal examination. Sascha Montez MD Head CTA 06/20/17 0600 Signed Impressions: Service Date/Time: Tuesday, June 20, 2017 07:52 - CONCLUSION: No evidence for any significant spasm. Sascha Montez MD Neck CTA 06/15/17 1125 Signed Impressions: Service Date/Time: Thursday, June 15, 2017 12:10 - CONCLUSION: 1. No stenosis of either carotid artery. 2. No aneurysm seen. 3. Normal variants of the aortic arch. Pascual Sanderson MD Cerebral Arteriogram 06/15/17 0000 Signed Impressions: Service Date/Time: Thursday, June 15, 2017 13:11 - CONCLUSION: 1. 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 2. No significant vasospasm seen on the left. 3. I spoke with Dr. Yen immediately following the procedure. Emile Walker Jr., MD Objective Remarks GENERAL: This is a thin appearing, well-developed patient, in no apparent distress. SKIN: Warm and dry. HEENT: Head with dressing clean, dry intact. Nose without bleeding. Airway patent. NECK: Trachea midline. No JVD. Supple. CARDIOVASCULAR: Regular rate and rhythm without murmurs, gallops, or rubs. RESPIRATORY: Clear to auscultation. Breath sounds equal bilaterally. No wheezes , rales, or rhonchi. GASTROINTESTINAL: Abdomen soft, non-tender, nondistended. Bowel Sounds normoactive x4. Dignashield in place draining liquid stool. : Sneed draining yellow urine. MUSCULOSKELETAL: Extremities without clubbing, cyanosis, bilateral upper extremity +1 edema. NEUROLOGICAL: Asleep. Procedures Status post coiling Status post READING TUTOR shunt A/P Problem List: (1) SAH (subarachnoid hemorrhage) ICD Code: I60.9 Status: Acute (2) Aneurysm of anterior communicating artery ICD Code: I67.1 Status: Acute Assessment and Plan Patient is a 57-year-old female with primary medical history of HTN initially came in with complaints of headache and bilateral lower extremity weakness . CT head reveals diffuse subarachnoid hemorrhage. CTA demonstrates anterior communicating artery aneurysm. Extensive SAH secondary to ruptured ACOM aneurysm Left frontal intraparenchymal hemorrhage, with edema Mild Vasospasm - 5x4x3 mm ACOM aneurysm successfully treated with coil embolization. - Transcranial Doppler c/w vasospasm on the left side 06/19/17, CTA 06/20 no significant vasospasm. Since then serial TCD had been neg for vasospasm - CT head on 06/18/17 had shown left frontal vasogenic edema and intraparenchymal hemorrhage, rpt 06/21 unchanged - Systolic blood pressure target 140-160. Continue metoprolol 12.5-8 hours, labetalol/hydralazine when necessary. Echo EF 65-70%. - Continue Nimotop at 60 mg po q4. - On Keppra 500 q12 - Keep sodium normal. Continue sodium 1 gram tab Q6hrs. Monitor Na levels. - S/P VPS 07/06/17 - Repeat CTA today, follow up results - Plan to discharge to [facility] for comprehensive rehabilitation Acute hypoxemic respiratory failure Bilateral pleural effusion HCAP - Intubated for airway protection 06/18/17, extubated 07/01. - S/p bilateral pigtail chest tubes with approximately 1 L each removed , output declined L chest tube removed 06/29. R chest tube removed 06/30. - CXR 07/01 worsening LLL opacity concerning for HCAP. broadened abx 07/01 - DuoNeb every 6 hours and when necessary. HOB elevated. - ? HCAP recurrence patient was given VANCO IV, stopped today - Monitor respiratory status C. difficile diarrhea - Was JEvity 1.5 @ 40/hr with beneprotein per nutrition recs, now tolerating regular diet. IV Protonix's will switch to by mouth - Speech eval recommends regular thin liquids. Will continue to monitor patient's progress. Will require speech therapy follow-up in rehabilitation. - Plan to DC Dignashield - C. difficile positive . On Flagyl, vancomycin by mouth. ID following. Will continue x10 days - Lactinex BID - DC IVF at midnight. Follow up labs in AM. DVT prop Lovenox GI prop pantoprazole Full code Discussed with daughter, nursing, Dr. Edmond Discharge Planning Plan to discharge to [facility] for comprehensive rehabilitation when ready. Ken Williamson Jul 07, 2017 15:03
[2017-07-07] MEDS: LACTOBACILLUS ACIDOPHILUS TAB PO SCH (19:26)
[2017-07-07] MEDS: metroNIDAZOLE 500 MG TAB PO SCH (19:26)
[2017-07-08] VITALS (13 sets, daily range): BP systolic 100–154; BP diastolic 57–84; PULSE 62–90; RESP 18–21; TEMP 98.1–99.2; O2SAT 95–100
[2017-07-08] MEDS: METOPROLOL TARTRATE 25 MG TAB PO SCH ×3 (00:22→17:52)
[2017-07-08] MEDS ORDERED: PHARMACY ORDERED LAB ONE (02:45)
[2017-07-08] MEDS: niMODipine 30 MG CAP PO SCH ×5 (03:28→21:30)
[2017-07-08] MEDS: metroNIDAZOLE 500 MG TAB PO SCH ×3 (03:28→21:31)
[2017-07-08] MEDS: CHLORHEXIDINE GLUCONATE 2 % 1 PACK (2 CLOTHS) TOP SCH (04:00)
[2017-07-08] MEDS: MAGNESIUM OXIDE 400 MG TAB PO SCH ×3 (05:32→21:33)
[2017-07-08] MEDS: SODIUM CHLORIDE 1 GRAM TAB OG-TUBE SCH ×3 (05:32→17:47)
[2017-07-08 06:46] LABS: HEMATOCRIT 27.2 % (35.0-46.0); MEAN CELL VOLUME 91.3 FL (80.0-100.0); MEAN CORPUSCULAR HEMOGLOBIN 32.2 PG (27.0-34.0); MEAN CORPUSCULAR HGB CONC 35.3 % (32.0-36.0); PLATELET COUNT 612 TH/MM3 (150-450); RED BLOOD COUNT 2.98 MIL/MM3 (4.00-5.30); RED CELL DISTRIBUTION WIDTH 14.9 % (11.6-17.2); REVIEW FLAG FINAL
[2017-07-08 07:19] LABS: BICARBONATE 25.1 MEQ/L (21.0-32.0); POTASSIUM 3.6 MEQ/L (3.5-5.1)
[2017-07-08] MEDS: NYSTATIN 100,000 UNIT/GM CREAM 15 GM TOPICAL SCH ×2 (09:00→21:32)
[2017-07-08] MEDS: BENEPROTEIN POWDER 1 PACK G-TUBE SCH ×3 (09:00→17:52)
[2017-07-08] MEDS: SODIUM CHLORIDE 0.9% FLUSH 5 ML FLUSH IVF SCH ×2 (09:00→21:31)
[2017-07-08] MEDS: POTASSIUM CHLORIDE 25 MEQ EFFERVESCENT TAB PO SCH ×2 (10:18→21:31)
[2017-07-08] MEDS: PANTOPRAZOLE SOD 40 MG DELAYED RELEASE TAB PO SCH (10:19)
[2017-07-08] MEDS: levETIRAcetam 500 MG/5 ML UDC NG SCH ×2 (10:19→21:31)
[2017-07-08] MEDS: LACTOBACILLUS ACIDOPHILUS TAB PO SCH ×2 (10:19→21:31)
[2017-07-08] MEDS: FLUCONAZOLE 100 MG TAB PO SCH (10:19)
[2017-07-08] MEDS: DOCUSATE SODIUM 50 MG/SENNA 8.6 MG TAB PO SCH ×2 (10:19→21:00)
[2017-07-08] MEDS: VANCOMYCIN 500 MG VIAL (FOR ORAL USE ONLY) PO SCH ×4 (10:19→21:47)
--- NOTE | 2017-07-08 12:51 | RADRPT ---
EXAM DATE/TIME: 07/08/2017 11:39 [place] COMPARISON: No previous studies available for comparison. INDICATIONS : Aneurysm. MEDICAL HISTORY : Hypertension. Arthritis. Subarachnoid hemorrhage. SURGICAL HISTORY : Tubal ligation. Aneurysm coil. ENCOUNTER: Initial ACUITY: 1 day Current Exam: Jul 08, 2017 [place] Ratio: Right: 1.8 Left: 1.1 [place] Ratio: Right: 1.8 Left: 0.8 Previous Exam: Jun 30, 2017 [place] Ratio: Right: 1.1 Left: 1.4 [place]dez Ratio: Right: 0.7 Left: 1.3 FINDINGS: Examination performed at bedside. Real-time ultrasound with the assistance of color and spectral Dop pler was utilized to evaluate the intracerebral circulation. Time-averaged maximal velocities are ca lculated in cm/s. Satisfactory intact Doppler appearance of the cerebrovascular system. CONCLUSION: Unremarkable study Silas Mtz MD on July 08, 2017 at 12:48 Board Certified Radiologist. This report was verified electronically.
[2017-07-08] MEDS: ACETAMINOPHEN 650 MG/20.3 ML UDC PO PRN (13:41)
--- NOTE | 2017-07-08 14:06 | HHI.NSPN ---
(Gena Nowak) Note Status Status: Progress Note (Gena Nowak) Interval History Interval History 57-year-old female admitted 06/15/17 with acute onset severe headache. 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 06/15/17 endovascular coiling of aneurysm. 06/18/17 patient with increasing confusion, new left frontal interparenchymal hemorrhage with surrounding edema on follow-up CT scan. Patient intubated for airway control. Ventriculostomy placed. 06/20/17: Remains intubated, mechanical ventilation, intravenous sedation. 06/21/17: possible septic shock, on multiple pressors. EVD draining well, bloody CSF, ICP wnl. f/u CTA Head yesterday neg for vasospasm. TCDs this morning pending. Sedation turned off 30 mins ago when rounded, no eye opening, not following commands, no withdrawals to extremities. 06/23/17: pressors being weaned off, s/p chest tube placement for severe pleural effusions. ICPs remains wnl. EVD draining well. Remains sedated. TCD this am. 06/28/17: per nursing report neuro checks improving, patient opening eyes and starting to follow commands. EVD continues to drain well, stable ICPs. 06/30/17: challenging ventriculostomy drain, CSF is clearing up, 07/02/17: EVD clamped yesterday morning, f/u CT Head this am completed 07/03/17: family would like to rechallenge EVD prior to UPFITTER shunt 07/04/17: f/u CT Head completed, ICPs stable overnight, neuro exam unchanged. patient positive for C. Dif and with multiple loose stools 07/05/17: mental status worse today, not opening eyes, not following commands. EVD remained clamped overnight 07/07/17: s/p placement of left ventriculoperitoneal shunt on 07/06/17. Lethargic overnight, but doing much better this morning during rounds, conversing slightly. 07/08/17: sitting up in stretcher chair. TCD this morning reports unremarkable. [facility] (Gena Nowak) Labs, Micro, & Vital Signs Results Date Time Temp Pulse Resp B/P Pulse Ox O2 Delivery O2 Flow Rate FiO2 07/08/17 12:00 82 07/08/17 12:00 98.7 82 19 141/75 98 07/08/17 10:00 72 07/08/17 09:35 98 21 07/08/17 08:00 88 07/08/17 08:00 98.1 84 19 154/83 98 07/08/17 07:00 97 Room Air 07/08/17 06:00 76 07/08/17 04:00 78 07/08/17 04:00 99.2 78 19 116/57 95 07/08/17 02:00 62 07/08/17 00:00 88 07/08/17 00:00 98.4 88 18 115/62 96 07/07/17 22:00 89 07/07/17 20:48 99 07/07/17 20:00 99.2 86 20 130/66 99 07/07/17 20:00 86 07/07/17 19:00 99 Room Air 07/07/17 18:00 82 07/07/17 16:00 98.5 84 20 127/65 97 07/07/17 16:00 80 07/08/17 06:59 Intake Total 3920 ml Output Total 4450 ml Balance -530 ml Constitutional Vital Signs Date Time Temp Pulse Resp B/P Pulse Ox O2 Delivery O2 Flow Rate FiO2 07/08/17 12:00 82 07/08/17 12:00 98.7 82 19 141/75 98 07/08/17 10:00 72 07/08/17 09:35 98 21 07/08/17 08:00 88 07/08/17 08:00 98.1 84 19 154/83 98 07/08/17 07:00 97 Room Air 07/08/17 06:00 76 07/08/17 04:00 78 07/08/17 04:00 99.2 78 19 116/57 95 07/08/17 02:00 62 07/08/17 00:00 88 07/08/17 00:00 98.4 88 18 115/62 96 07/07/17 22:00 89 07/07/17 20:48 99 07/07/17 20:00 99.2 86 20 130/66 99 07/07/17 20:00 86 07/07/17 19:00 99 Room Air 07/07/17 18:00 82 07/07/17 16:00 98.5 84 20 127/65 97 07/07/17 16:00 80 07/08/17 06:59 Intake Total 3920 ml Output Total 4450 ml Balance -530 ml (Gena Nowak) Review of Systems/Exam Exam Sitting up in stretcher chair, awake, conversant, mildly confused but oriented to name, year and place Being fed her lunch Motor: moves all four extremities to commands with generalized weakness Surgical incisions clean and dry with dressing , left UPFITTER shunt intact with good bubble rebound (Gena Nowak) Medications Current Medications Current Medications Medications (Trade) Dose Ordered Sig/Doris Route PRN Reason Start Time Stop Time Status Last Admin Dose Admin Ondansetron HCl (Zofran Inj) 4 mg Q6H PRN IV NAUSEA OR VOMITING 06/15/17 13:30 06/18/17 13:00 Miscellaneous Information 1 [id number] XX 06/15/17 13:30 Chlorhexidine Gluconate (Chlorhexidine 2% Cloth) 3 pack Taper DAILY@04 TOP 06/16/17 04:00 06/12/18 03:59 07/08/17 04:00 Chlorhexidine Gluconate (Chlorhexidine 2% Cloth) 3 pack UNSCH PRN TOP HYGIENIC CARE 06/15/17 13:30 Senna/Docusate Sodium (Prabha-Colace) 1 tab BID PO 06/15/17 21:00 07/08/17 10:19 Magnesium Hydroxide (Milk Of Magnesia Liq) 30 ml Q12H PRN PO MILD - MODERATE CONSTIPATION 06/15/17 13:30 Hold Sennosides (Senokot) 17.2 mg Q12H PRN PO MODERATE - SEVERE CONSTIPATION 06/15/17 13:30 Hold Bisacodyl (Dulcolax Supp) 10 mg DAILY PRN RECTAL SEVERE CONSITIPATION 06/15/17 13:30 Lactulose (Lactulose Liq) 30 ml DAILY PRN PO SEVERE CONSITIPATION 06/15/17 13:30 Hold Labetalol HCl 10 mg 10 mg Q1H PRN IV PUSH SBP >160 06/15/17 13:30 07/01/17 00:29 Potassium Chloride 100 ml @ 50 mls/hr Q2H PRN IV For Potassium 2.8 - 3.2 mEq/L 06/18/17 05:30 07/02/17 08:57 Potassium Chloride (KCl 20 Meq Premix Inj) 100 ml @ 50 mls/hr Q2H PRN IV For Potassium 2.8 - 3.2 mEq/L 06/18/17 05:30 07/06/17 07:30 Potassium Bicarb/ Potassium Chloride 50 meq 50 meq UNSCH PRN PO For Potassium 3.3 - 3.5 mEq/L 06/18/17 05:30 06/20/17 17:59 Potassium Chloride 100 ml @ 25 mls/hr UNSCH PRN IV For Potassium 3.3 - 3.5 mEq/L 06/18/17 05:30 06/30/17 12:54 Potassium Chloride 100 ml @ 50 mls/hr Q2H PRN IV For Potassium 3.3 - 3.5 mEq/L 06/18/17 05:30 Magnesium Sulfate/ Sodium Chloride (Magnesium Sulfate Inj/NS Inj) 100 ml @ 50 mls/hr UNSCH PRN IV For Magnesium 0.9 - 1.1 mg/dL 06/18/17 05:30 Magnesium Oxide 800 mg 800 mg UNSCH PRN PO For Magnesium 1.2 - 1.6 mg/dL 06/18/17 05:30 Magnesium Sulfate/ Sodium Chloride (Magnesium Sulfate Inj/NS Inj) 100 ml @ 50 mls/hr UNSCH PRN IV For Magnesium 1.2 - 1.6 mg/dL 06/18/17 05:30 06/20/17 18:28 Potassium Phosphate 2000 mg 2,000 mg Q4H PRN PO For Phosphorus < 2.5 mg/dL 06/18/17 05:30 Sodium Phosphate/ Sodium Chloride (Sodium Phosphate Inj/NS 250 ml Inj) 250 ml @ 42 mls/hr UNSCH PRN IV For Phosphorus < 2.5 mg/dL 06/18/17 05:30 07/02/17 08:57 Potassium Phosphate 2000 mg 2,000 mg UNSCH PRN PO/TUBE SEE LABEL COMMENTS 06/18/17 05:30 Potassium Phosphate/Sodium Chloride (Potassium Phosphate Inj/NS 250 ml Inj) 260 ml @ 42 mls/hr UNSCH PRN IV SEE LABEL COMMENTS 06/18/17 05:30 Protein (Beneprotein Powder) 1 pack TID G-TUBE 06/19/17 13:00 07/08/17 12:48 Acetaminophen (Tylenol 650 Mg/ 20 ml Liq) 650 mg Q4H PRN PO Temp > 100.5 06/19/17 12:45 07/08/17 13:41 Terbutaline Sulfate (Brethine Inj) 1 mg UNSCH PRN SQ For Extravasation 06/20/17 17:30 Potassium Bicarb/ Potassium Chloride (K-Lyte Cl Eff) 25 meq Q12HR PO 06/21/17 10:00 07/08/17 10:18 Magnesium Oxide (Mag-Ox) 400 mg Q8HR PO 06/21/17 22:00 07/08/17 13:50 Nimodipine (Nimotop) 60 mg Q4HR PO 06/26/17 12:00 07/08/17 12:48 Vancomycin HCl (VANCOMYCIN for oral use only) 250 mg QID PO 06/28/17 09:00 07/08/17 12:48 Enoxaparin Sodium (Lovenox Inj) 40 mg Q24H SQ 06/28/17 14:00 Hold 07/04/17 14:17 Levetriacetam (Keppra Liq) 500 mg Q12HR NG 06/29/17 21:00 07/08/17 10:19 Sodium Chloride (Sodium Chloride) 1 gm Q6H OG-TUBE 06/30/17 17:00 07/08/17 10:19 Metoprolol Tartrate 12.5 mg 12.5 mg Q8H PO 07/01/17 17:00 07/08/17 10:20 Nicardipine HCl/ Sodium Chloride (Cardene Inj/NS 250 ml Inj) 260 ml @ 0 mls/hr TITRATE IV 07/01/17 09:45 Hydralazine HCl (Apresoline Inj) 10 mg Q4H PRN IV PUSH SBP >160 07/01/17 09:45 Miscellaneous (Pill Splitter) 1 ea UNSCH PRN OTHER SEE LABEL COMMENTS 07/01/17 09:45 Nystatin (Mycostatin Cream) 1 applic Q12HR TOPICAL 07/01/17 11:00 07/08/17 09:00 Fluconazole (Diflucan) 100 mg DAILY PO 07/01/17 14:00 07/08/17 10:19 IV Flush (NS Flush) 2 ml UNSCH PRN IVF FLUSH AFTER USING IV ACCESS 07/06/17 11:45 IV Flush (NS Flush) 2 ml BID IVF 07/06/17 21:00 07/08/17 09:00 Acetaminophen/ Hydrocodone Bitart ([place] 10-325 Mg) 1 tab Q4H PRN PO PAIN SCALE 1 TO 5 07/06/17 11:45 Acetaminophen/ Hydrocodone Bitart ([place] 10-325 Mg) 2 tab Q4H PRN PO PAIN SCALE 6 TO 10 07/06/17 11:45 Morphine Sulfate (Morphine Inj) 2 mg Q2H PRN IV PUSH PAIN SCALE 1 TO 6 07/06/17 11:45 Morphine Sulfate (Morphine Inj) 4 mg Q2H PRN IV PUSH PAIN SCALE 7 TO 10 07/06/17 11:45 Acetaminophen (Tylenol) 650 mg Q4H PRN PO TEMPERATURE > 101.5 F 07/06/17 11:45 Metronidazole (Flagyl) 500 mg Q8H PO 07/07/17 20:00 07/08/17 10:20 Pantoprazole Sodium (Protonix) 40 mg DAILY PO 07/08/17 09:00 07/08/17 10:19 Lactobacillus Acidophilus (Lactinex) 1 tab Q12HR PO 07/07/17 21:00 07/08/17 10:19 (Gena Nowak) Medical Decision Making MDM Remarks 57 y/o female with SAH from ruptured ACOM aneurysm s/p endovascular coiling 06/15 s/p placement of right ventriculostomy drain, challenged EVD and patient's neurological status worsened with evidence of hydrocephalus on CT Head Right EVD removed and underwent placement of left UPFITTER shunt 07/06/17 f/u TCD 07/08/17 unremarkable (Gena Nowak) Plan Plan Remarks neurologically improving cont neuro checks cont PT, OT, [facility], ok to dc from [facility] standpoint dw in room arturo dc 07/21/17 (Gena Nowak) Attending Statement The exam, history, and the medical decision-making described in the above note were completed with the assistance of the mid-level provider. I reviewed and agree with the findings presented. I attest that I had a [id number] encounter with the patient on the same day, and personally performed and documented my assessment and findings in the medical record. (Micah Hoff MD) Gena Nowak Jul 08, 2017 14:06 Micah Hoff MD Jul 10, 2017 22:13
--- NOTE | 2017-07-08 14:21 | HHI.PR ---
Subjective Remarks Follow-up visit extensive SAH secondary to ruptured aneurysm, vasospasm, left frontal intraparenchymal hemorrhage with edema status post CAR FRAMER shunt, respiratory failure, HCAP, C. difficile diarrhea. Patient seen and examined today. Daughter at the bedside. Patient is awake and alert. Responds to questions and commands. Complaints of headache and was just given Tylenol. Denies change in vision, diplopia. Denies SOB/ dyspnea. Denies chest pain. Denies fevers, chills, nausea, vomiting. Objective Vitals Vital Signs Date Time Temp Pulse Resp B/P Pulse Ox O2 Delivery O2 Flow Rate FiO2 07/08/17 12:00 82 07/08/17 12:00 98.7 82 19 141/75 98 07/08/17 10:00 72 07/08/17 09:35 98 21 07/08/17 08:00 88 07/08/17 08:00 98.1 84 19 154/83 98 07/08/17 07:00 97 Room Air 07/08/17 06:00 76 07/08/17 04:00 78 07/08/17 04:00 99.2 78 19 116/57 95 07/08/17 02:00 62 07/08/17 00:00 88 07/08/17 00:00 98.4 88 18 115/62 96 07/07/17 22:00 89 07/07/17 20:48 99 07/07/17 20:00 99.2 86 20 130/66 99 07/07/17 20:00 86 07/07/17 19:00 99 Room Air 07/07/17 18:00 82 07/07/17 16:00 98.5 84 20 127/65 97 07/07/17 16:00 80 I/O 07/07/17 07/07/17 07/07/17 07/08/17 07/08/17 07/08/17 07:00 15:00 23:00 07:00 15:00 23:00 Intake Total 956 ml 1990 ml 946 ml 984 ml Output Total 1600 ml 1950 ml 825 ml 1675 ml Balance -644 ml 40 ml 121 ml -691 ml Intake Oral 120 ml 840 ml 240 ml 240 ml IV Total 836 ml 1150 ml 706 ml 744 ml Output Urine Total 1500 ml 1800 ml 825 ml 1600 ml Stool Total 100 ml 150 ml 75 ml Result Diagram: 07/08/17 0542 07/08/17 0542 Imaging Last Impressions Transcranial Doppler Study Complete 07/08/17 0000 Signed Impressions: Service Date/Time: June 11:39 - CONCLUSION: Unremarkable study Silas Mtz MD Head CT 07/07/17 0000 Signed Impressions: Service Date/Time: Friday, July 07, 2017 05:11 - CONCLUSION: 1. Decreased ventriculomegaly with CAR FRAMER shunt catheter placement as above. 2. Decreased conspicuity of subarachnoid hemorrhage. Keegan Bray MD Chest X-Ray 07/01/17 0000 Signed Impressions: Service Date/Time: June 10:05 - CONCLUSION: 1. Increased left perihilar and basilar airspace disease since June 2. Probable small effusions. Endotracheal tube, nasogastric tube and right central line in satisfactory position. No pneumothorax. Poncho Aguilera MD Upper Extremity Ultrasound 06/28/17 0000 Signed Impressions: Service Date/Time: Wednesday, June 28, 2017 09:12 - CONCLUSION: There is thrombus within the left basilic vein and right cephalic vein. Sascha Montez MD Lower Extremity Ultrasound 06/28/17 0000 Signed Impressions: Service Date/Time: Wednesday, June 28, 2017 08:53 - CONCLUSION: Normal examination. Sascha Montez MD Head CTA 06/20/17 0600 Signed Impressions: Service Date/Time: Tuesday, June 20, 2017 07:52 - CONCLUSION: No evidence for any significant spasm. Sascha Montez MD Neck CTA 06/15/17 1125 Signed Impressions: Service Date/Time: Thursday, June 15, 2017 12:10 - CONCLUSION: 1. No stenosis of either carotid artery. 2. No aneurysm seen. 3. Normal variants of the aortic arch. Pascual Sanderson MD Cerebral Arteriogram 06/15/17 0000 Signed Impressions: Service Date/Time: Thursday, June 15, 2017 13:11 - CONCLUSION: 1. 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 2. No significant vasospasm seen on the left. 3. I spoke with Dr. Yen immediately following the procedure. Emile Walker Jr., MD Objective Remarks GENERAL: This is a thin appearing, well-developed patient, in no apparent distress. SKIN: Warm and dry. HEENT: Head with dressing clean, dry intact. Nose without bleeding. Airway patent. NECK: Trachea midline. No JVD. Supple. CARDIOVASCULAR: Regular rate and rhythm without murmurs, gallops, or rubs. RESPIRATORY: Clear to auscultation. Breath sounds equal bilaterally. No wheezes , rales, or rhonchi. GASTROINTESTINAL: Abdomen soft, non-tender, nondistended. Bowel Sounds normoactive x4. Dignashield in place draining liquid stool. : Sneed draining yellow urine. MUSCULOSKELETAL: Extremities without clubbing, cyanosis, bilateral upper extremity +1 edema. NEUROLOGICAL: Awake and alert. Oriented to person, place. Cranial nerves II through XII intact. Moves all extremities weakly. Able to follow commands. Cranial nerves intact. Speech is normal. 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 CT head reveals diffuse subarachnoid hemorrhage. CTA demonstrates anterior communicating artery aneurysm. Extensive SAH secondary to ruptured ACOM aneurysm Left frontal intraparenchymal hemorrhage, with edema Mild Vasospasm - 5x4x3 mm ACOM aneurysm successfully treated with coil embolization. - Transcranial Doppler c/w vasospasm on the left side 06/19/17, CTA 06/20 no significant vasospasm. Since then serial TCD had been neg for vasospasm - CT head on 06/18/17 had shown left frontal vasogenic edema and intraparenchymal hemorrhage, rpt 06/21 unchanged - Systolic blood pressure target 140-160. Continue metoprolol 12.5-8 hours, labetalol/hydralazine when necessary. Echo EF 65-70%. - Continue Nimotop at 60 mg po q4. Stop date 21 days 07/17/17 - On Keppra 500 q12 - Keep sodium normal. Continue sodium 1 gram tab Q6hrs. Monitor Na levels. - S/P VPS 07/06/17 - Repeat head CT 1. Decreased ventriculomegaly with CAR FRAMER shunt catheter placement as above. 2. Decreased conspicuity of subarachnoid hemorrhage. - Transcranial Doppler studies done today, unremarkable study - Plan to discharge to [place] for comprehensive rehabilitation. - Consulted rehabilitation medicine for follow-up if patient has delays in getting to [place] because of insurance barrier - May transfer to [address] [place] [address] if ICU bed is needed. Acute hypoxemic respiratory failure Bilateral pleural effusion HCAP - Intubated for airway protection 06/18/17, extubated 07/01. - S/p bilateral pigtail chest tubes with approximately 1 L each removed , output declined L chest tube removed 06/29. R chest tube removed 06/30. - CXR 07/01 worsening LLL opacity concerning for HCAP. broadened abx 07/01 - DuoNeb every 6 hours and when necessary. HOB elevated. - ? HCAP recurrence patient was given VANCO IV, stopped today - Monitor respiratory status C. difficile diarrhea - Previously was on TF via NGT JEvity 1.5 @ 40/hr with beneprotein per nutrition recs, now tolerating regular diet. IV Protonix's will switch to by mouth - Speech eval recommends regular thin liquids. Will continue to monitor patient's progress. Will require speech therapy follow-up in rehabilitation. - Plan to DC Dignashield - C. difficile positive . On Flagyl, vancomycin by mouth. ID following. Will continue x10 days - Lactinex BID - DC IVF DVT prop Lovenox GI prop pantoprazole Full code Discussed with daughter, nursing, Dr. Edmond Discharge Planning Plan to discharge to [place] for comprehensive rehabilitation when ready. If ICU bed is needed, may transfer patient to [address] [place] [address]. Ken Williamson Jul 08, 2017 14:21
[2017-07-08] MEDS ORDERED: LEVE500S NG (14:39)
[2017-07-08] MEDS ORDERED: IPRASOL NEB (14:39)
[2017-07-08] MEDS ORDERED: BISA10R RECTAL (14:39)
[2017-07-08] MEDS ORDERED: ACET1TAB86 PO (14:39)
[2017-07-08] MEDS ORDERED: VANC500I3 PO (14:39)
[2017-07-08] MEDS ORDERED: ONDA4INJ2 IV (14:39)
[2017-07-08] MEDS ORDERED: SODI1TAB OG-TUBE (14:39)
[2017-07-08] MEDS ORDERED: LACT PO (14:39)
[2017-07-08] MEDS ORDERED: ENOX40P SQ (14:39)
[2017-07-08] MEDS ORDERED: PANT40TA3 PO (14:39)
[2017-07-08] MEDS ORDERED: METR-1 PO (14:39)
[2017-07-08] MEDS ORDERED: NYST15T TOPICAL (14:39)
[2017-07-08] MEDS ORDERED: METO25TA3 PO (14:39)
[2017-07-08] MEDS ORDERED: [UNRECOGNIZED DRUG - CODE] PO (16:14)
[2017-07-08] MEDS: ACETAMINOPHEN 325 MG TAB PO PRN (17:51)
[2017-07-08] MEDS: diphenhydrAMINE HCL 50 MG/ML VIAL IV PUSH PRN (23:47)
[2017-07-09] VITALS (11 sets, daily range): BP systolic 123–146; BP diastolic 58–83; PULSE 70–99; RESP 18–31; TEMP 97.9–99; O2SAT 96–99
[2017-07-09] MEDS: niMODipine 30 MG CAP PO SCH ×7 (01:38→23:16)
[2017-07-09] MEDS: METOPROLOL TARTRATE 25 MG TAB PO SCH ×3 (01:39→16:49)
[2017-07-09] MEDS: metroNIDAZOLE 500 MG TAB PO SCH ×3 (04:46→21:08)
[2017-07-09] MEDS: CHLORHEXIDINE GLUCONATE 2 % 1 PACK (2 CLOTHS) TOP SCH (04:46)
[2017-07-09] MEDS: SODIUM CHLORIDE 1 GRAM TAB OG-TUBE SCH ×2 (05:47→11:00)
[2017-07-09] MEDS: MAGNESIUM OXIDE 400 MG TAB PO SCH ×3 (06:00→23:16)
[2017-07-09] MEDS: NYSTATIN 100,000 UNIT/GM CREAM 15 GM TOPICAL SCH ×2 (09:00→21:12)
[2017-07-09] MEDS: POTASSIUM CHLORIDE 25 MEQ EFFERVESCENT TAB PO SCH ×2 (09:00→21:09)
[2017-07-09] MEDS: BENEPROTEIN POWDER 1 PACK G-TUBE SCH ×2 (09:00→12:42)
[2017-07-09] MEDS: SODIUM CHLORIDE 0.9% FLUSH 5 ML FLUSH IVF SCH ×2 (09:00→21:10)
[2017-07-09] MEDS: DOCUSATE SODIUM 50 MG/SENNA 8.6 MG TAB PO SCH (09:00)
[2017-07-09] MEDS: FLUCONAZOLE 100 MG TAB PO SCH (09:02)
[2017-07-09] MEDS: LACTOBACILLUS ACIDOPHILUS TAB PO SCH ×2 (09:02→16:48)
[2017-07-09] MEDS: levETIRAcetam 500 MG/5 ML UDC NG SCH ×2 (09:02→21:10)
[2017-07-09] MEDS: PANTOPRAZOLE SOD 40 MG DELAYED RELEASE TAB PO SCH (09:05)
--- NOTE | 2017-07-09 09:05 | HHI.PR ---
Addendum to Inpatient Note Addendum Reason: Additional Documentation Additional Information Chart review documentation: No fevers Normal WBC Diarrhea controlled at 2 BMs per chart. Plan for rehab per notes. Ok to transfer to rehab from ID standpoint. Recs: Continue Flagyl PO another 10 days. Continue oral vanco for Cdiff. another 10 days. Avoid systemic antibiotics unless obvious infection or sepsis. Will sign off please call back if any change in clinical condition or questions. Claire Guerra MD Jul 09, 2017 09:05
[2017-07-09] MEDS: VANCOMYCIN 500 MG VIAL (FOR ORAL USE ONLY) PO SCH ×4 (09:06→21:07)
[2017-07-09] MEDS: ENOXAPARIN SODIUM 40 MG/0.4 ML SYRINGE SQ SCH (13:07)
--- NOTE | 2017-07-09 13:19 | HHI.PR ---
Subjective Remarks Follow-up visit extensive SAH secondary to ruptured aneurysm, vasospasm, left frontal intraparenchymal hemorrhage with edema status post FRENCH PROFESSOR shunt, respiratory failure, HCAP, C. difficile diarrhea. Patient seen and examined today. She is awake and alert playing in bed. Reports she is doing well. As per nursing, patient did not sleep well last night and has been drowsy in the morning however patient took all her medications and hasn't been eating well. Patient reports occasional headaches but relieved by Tylenol. Patient denies pain or discomfort, chest pain, palpitations, fevers, chills, nausea, vomiting Objective Vitals Vital Signs Date Time Temp Pulse Resp B/P Pulse Ox O2 Delivery O2 Flow Rate FiO2 07/09/17 12:00 98.1 80 18 123/68 99 07/09/17 12:00 80 07/09/17 10:00 70 07/09/17 08:00 98.7 87 20 125/69 98 07/09/17 08:00 86 07/09/17 07:55 99 21 07/09/17 07:00 99 Room Air 07/09/17 06:00 75 07/09/17 04:00 99.0 83 28 146/80 98 07/09/17 04:00 83 07/09/17 02:00 86 07/09/17 00:00 86 07/09/17 00:00 98.9 86 31 124/83 98 07/08/17 22:00 80 07/08/17 20:00 85 07/08/17 20:00 99.1 90 21 116/60 100 07/08/17 19:00 100 Room Air 07/08/17 18:00 84 07/08/17 16:00 98.2 84 20 100/84 100 07/08/17 16:00 84 07/08/17 14:00 84 I/O 07/08/17 07/08/17 07/08/17 07/09/17 07/09/17 07/09/17 07:00 15:00 23:00 07:00 15:00 23:00 Intake Total 984 ml 2110 ml 841 ml 480 ml Output Total 1675 ml 2200 ml 1400 ml 2300 ml Balance -691 ml -90 ml -559 ml -1820 ml Intake Oral 240 ml 960 ml 480 ml 480 ml IV Total 744 ml 1150 ml 361 ml Output Urine Total 1600 ml 2000 ml 1400 ml 2300 ml Stool Total 75 ml 200 ml # Bowel Movements 2 Result Diagram: 07/08/17 0542 07/08/17 0542 Imaging Last Impressions Transcranial Doppler Study Complete 07/08/17 0000 Signed Impressions: Service Date/Time: June 11:39 - CONCLUSION: Unremarkable study Silas Mtz MD Head CT 07/07/17 0000 Signed Impressions: Service Date/Time: Friday, July 07, 2017 05:11 - CONCLUSION: 1. Decreased ventriculomegaly with FRENCH PROFESSOR shunt catheter placement as above. 2. Decreased conspicuity of subarachnoid hemorrhage. Keegan Bray MD Chest X-Ray 07/01/17 0000 Signed Impressions: Service Date/Time: June 10:05 - CONCLUSION: 1. Increased left perihilar and basilar airspace disease since June 2. Probable small effusions. Endotracheal tube, nasogastric tube and right central line in satisfactory position. No pneumothorax. Poncho Aguilera MD Upper Extremity Ultrasound 06/28/17 0000 Signed Impressions: Service Date/Time: Wednesday, June 28, 2017 09:12 - CONCLUSION: There is thrombus within the left basilic vein and right cephalic vein. Sascha Montez MD Lower Extremity Ultrasound 06/28/17 0000 Signed Impressions: Service Date/Time: Wednesday, June 28, 2017 08:53 - CONCLUSION: Normal examination. Sascha Montez MD Head CTA 06/20/17 0600 Signed Impressions: Service Date/Time: Tuesday, June 20, 2017 07:52 - CONCLUSION: No evidence for any significant spasm. Sascha Montez MD Neck CTA 06/15/17 1125 Signed Impressions: Service Date/Time: Thursday, June 15, 2017 12:10 - CONCLUSION: 1. No stenosis of either carotid artery. 2. No aneurysm seen. 3. Normal variants of the aortic arch. Pascual Sanderson MD Cerebral Arteriogram 06/15/17 0000 Signed Impressions: Service Date/Time: Thursday, June 15, 2017 13:11 - CONCLUSION: 1. 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 2. No significant vasospasm seen on the left. 3. I spoke with Dr. Yen immediately following the procedure. Emile Walker Jr., MD Objective Remarks GENERAL: This is a thin appearing, well-developed patient, in no apparent distress. SKIN: Warm and dry. HEENT: Head with dressing clean, dry intact. Nose without bleeding. Airway patent. NECK: Trachea midline. No JVD. Supple. CARDIOVASCULAR: Regular rate and rhythm without murmurs, gallops, or rubs. RESPIRATORY: Clear to auscultation. Breath sounds equal bilaterally. No wheezes , rales, or rhonchi. GASTROINTESTINAL: Abdomen soft, non-tender, nondistended. Bowel Sounds normoactive x4. : Sneed draining yellow urine. MUSCULOSKELETAL: Extremities without clubbing, cyanosis, bilateral upper extremity +1 edema. NEUROLOGICAL: Awake and alert. Oriented to person, place. Cranial nerves II through XII intact. Moves all extremities weakly. Able to follow commands. Cranial nerves intact. Speech is normal. 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 CT head reveals diffuse subarachnoid hemorrhage. CTA demonstrates anterior communicating artery aneurysm. Extensive SAH secondary to ruptured ACOM aneurysm Left frontal intraparenchymal hemorrhage, with edema Mild Vasospasm - 5x4x3 mm ACOM aneurysm successfully treated with coil embolization. - Transcranial Doppler c/w vasospasm on the left side 06/19/17, CTA 06/20 no significant vasospasm. Since then serial TCD had been neg for vasospasm - CT head on 06/18/17 had shown left frontal vasogenic edema and intraparenchymal hemorrhage, rpt 06/21 unchanged - Systolic blood pressure target 140-160. Continue metoprolol 12.5-8 hours, labetalol/hydralazine when necessary. Echo EF 65-70%. - Continue Nimotop at 60 mg po q4. Stop date 21 days 07/17/17 - On Keppra 500 q12 - Keep sodium normal. Continue sodium 1 gram tab Q6hrs. Monitor Na levels. - S/P VPS 8/8/17 - Repeat head CT 1. Decreased ventriculomegaly with FRENCH PROFESSOR shunt catheter placement as above. 2. Decreased conspicuity of subarachnoid hemorrhage. - Transcranial Doppler studies done today, unremarkable study - Plan to discharge to [place] for comprehensive rehabilitation. - Consulted rehabilitation medicine for follow-up if patient has delays in getting to [place] because of insurance barrier - May transfer to [address] [place] [address]. Patient is pending transferred to [place]. Acute hypoxemic respiratory failure Bilateral pleural effusion HCAP - Intubated for airway protection 06/18/17, extubated 07/01. - S/p bilateral pigtail chest tubes with approximately 1 L each removed , output declined L chest tube removed 06/29. R chest tube removed 06/30. - CXR 07/01 worsening LLL opacity concerning for HCAP. broadened abx 07/01 - DuoNeb every 6 hours and when necessary. HOB elevated. - ? HCAP recurrence patient was given VANCO IV, stopped today - Monitor respiratory status C. difficile diarrhea - Previously was on TF via NGT JEvity 1.5 @ 40/hr with beneprotein per nutrition recs, now tolerating regular diet. IV Protonix's will switch to by mouth - Speech eval recommends regular thin liquids. Will continue to monitor patient's progress. Will require speech therapy follow-up in rehabilitation. - DC Dignashield - C. difficile positive . On Flagyl, vancomycin by mouth. ID following. Will continue x10 days - Lactinex BID increased to 3 times a day - DC IVF - Questran q8Hrs - DC fecal bag Urinary Tract Infection Heidi - Has been on Diflucan 07/01/17 - Sneed cath in place. DC when patient is more mobile - DC diflucan as per ID DVT prop Lovenox GI prop pantoprazole Full code Discussed with daughter, nursing, Dr. Edmond Discharge Planning Plan to discharge to [place] for comprehensive rehabilitation when ready. If ICU bed is needed, may transfer patient to [address] [place] [address]. Ken Williamson Jul 09, 2017 13:19
[2017-07-09] MEDS: CHOLESTYRAMINE 4 GM PACKET PO SCH ×2 (16:47→23:17)
[2017-07-09] MEDS: SODIUM CHLORIDE 1 GRAM TAB PO SCH ×2 (16:48→23:17)
[2017-07-09] MEDS: ACETAMINOPHEN 325 MG TAB PO PRN (16:49)
[2017-07-09] MEDS: diphenhydrAMINE HCL 50 MG/ML VIAL IV PUSH PRN (18:17)
[2017-07-09 20:23] LABS: HEMATOCRIT 27.8 % (35.0-46.0); MEAN CELL VOLUME 93.2 FL (80.0-100.0); MEAN CORPUSCULAR HEMOGLOBIN 31.7 PG (27.0-34.0); PLATELET COUNT 574 TH/MM3 (150-450); RED BLOOD COUNT 2.99 MIL/MM3 (4.00-5.30); RED CELL DISTRIBUTION WIDTH 15.3 % (11.6-17.2); REVIEW FLAG FINAL; WHITE BLOOD COUNT 7.9 TH/MM3 (4.0-11.0)
[2017-07-09 21:09] LABS: BICARBONATE 27.4 MEQ/L (21.0-32.0); POTASSIUM 4.2 MEQ/L (3.5-5.1)
[2017-07-10] VITALS: BP 118/61; PULSE 74; RESP 18; TEMP 98.7; O2SAT 96
[2017-07-10 04:00] VITALS: BP 125/64; PULSE 74; RESP 18; TEMP 97.2; O2SAT 96
[2017-07-10] MEDS: METOPROLOL TARTRATE 25 MG TAB PO SCH ×2 (04:59→08:37)
[2017-07-10] MEDS: metroNIDAZOLE 500 MG TAB PO SCH (04:59)
[2017-07-10] MEDS: niMODipine 30 MG CAP PO SCH ×2 (05:00→08:37)
[2017-07-10] MEDS: MAGNESIUM OXIDE 400 MG TAB PO SCH (06:13)
[2017-07-10] MEDS: CHOLESTYRAMINE 4 GM PACKET PO SCH (06:13)
[2017-07-10] MEDS: SODIUM CHLORIDE 1 GRAM TAB PO SCH ×2 (06:14→10:56)
[2017-07-10 08:00] VITALS: BP 117/65; PULSE 70; RESP 16; TEMP 98.5; O2SAT 97
[2017-07-10] MEDS: levETIRAcetam 500 MG/5 ML UDC NG SCH (08:37)
[2017-07-10] MEDS: PANTOPRAZOLE SOD 40 MG DELAYED RELEASE TAB PO SCH (08:37)
[2017-07-10] MEDS: LACTOBACILLUS ACIDOPHILUS TAB PO SCH (08:37)
[2017-07-10] MEDS: FLUCONAZOLE 100 MG TAB PO SCH (08:37)
[2017-07-10] MEDS: VANCOMYCIN 500 MG VIAL (FOR ORAL USE ONLY) PO SCH (08:38)
[2017-07-10] MEDS: POTASSIUM CHLORIDE 25 MEQ EFFERVESCENT TAB PO SCH (08:42)
--- NOTE | 2017-07-10 09:11 | HHI.PR ---
Subjective Remarks Follow-up visit extensive SAH secondary to ruptured aneurysm, vasospasm, left frontal intraparenchymal hemorrhage with edema status post REMEDIAL PROJECT MANAGER shunt, respiratory failure, HCAP, C. difficile diarrhea. Patient seen and examined today. states that patient has been itching and rubbing her left eyelid. States she was given Benadryl last night with some relief. But is concerned that something is going on. As per RN, report overnight patient did not have any diarrhea, and no other issues overnight. Patient states that her eyelid occasionally itch but doesn't really bother her. Denies pain and discomfort. Denies SOB/ dyspnea. Denies chest pain, palpitations, headaches, dizziness. Denies fevers, chills, n/v/d. Objective Vitals Vital Signs Date Time Temp Pulse Resp B/P Pulse Ox O2 Delivery O2 Flow Rate FiO2 07/10/17 08:00 98.5 70 16 117/65 97 07/10/17 04:00 97.2 74 18 125/64 96 07/10/17 00:00 98.7 74 18 118/61 96 07/09/17 21:00 Room Air 07/09/17 20:00 99 07/09/17 20:00 98.8 74 18 123/58 96 07/09/17 14:55 97.9 73 18 131/73 99 07/09/17 14:00 79 07/09/17 12:00 98.1 80 18 123/68 99 07/09/17 12:00 80 07/09/17 10:00 70 I/O 07/09/17 07/09/17 07/09/17 07/10/17 07/10/17 07/10/17 07:00 15:00 23:00 07:00 15:00 23:00 Intake Total 480 ml 500 ml Output Total 2300 ml 800 ml 1000 ml Balance -1820 ml -300 ml -1000 ml Intake Oral 480 ml 500 ml IV Total 0 ml Output Urine Total 2300 ml 800 ml 1000 ml # Bowel Movements 2 Result Diagram: 07/09/17193507/09/171935 Imaging Last Impressions Transcranial Doppler Study Complete 07/08/17 0000 Signed Impressions: Service Date/Time: June 11:39 - CONCLUSION: Unremarkable study Silas Mtz MD Head CT 07/07/17 0000 Signed Impressions: Service Date/Time: Friday, July 07, 2017 05:11 - CONCLUSION: 1. Decreased ventriculomegaly with REMEDIAL PROJECT MANAGER shunt catheter placement as above. 2. Decreased conspicuity of subarachnoid hemorrhage. Keegan Bray MD Chest X-Ray 07/01/17 0000 Signed Impressions: Service Date/Time: June 10:05 - CONCLUSION: 1. Increased left perihilar and basilar airspace disease since June 2. Probable small effusions. Endotracheal tube, nasogastric tube and right central line in satisfactory position. No pneumothorax. Poncho Aguilera MD Upper Extremity Ultrasound 06/28/17 0000 Signed Impressions: Service Date/Time: Wednesday, June 28, 2017 09:12 - CONCLUSION: There is thrombus within the left basilic vein and right cephalic vein. Sascha Montez MD Lower Extremity Ultrasound 06/28/17 0000 Signed Impressions: Service Date/Time: Wednesday, June 28, 2017 08:53 - CONCLUSION: Normal examination. Sascha Montez MD Head CTA 06/20/17 0600 Signed Impressions: Service Date/Time: Tuesday, June 20, 2017 07:52 - CONCLUSION: No evidence for any significant spasm. Sascha Montez MD Neck CTA 06/15/17 1125 Signed Impressions: Service Date/Time: Thursday, June 15, 2017 12:10 - CONCLUSION: 1. No stenosis of either carotid artery. 2. No aneurysm seen. 3. Normal variants of the aortic arch. Pascual Sanderson MD Cerebral Arteriogram 06/15/17 0000 Signed Impressions: Service Date/Time: Thursday, June 15, 2017 13:11 - CONCLUSION: 1. 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 2. No significant vasospasm seen on the left. 3. I spoke with Dr. Yen immediately following the procedure. Emile Walker Jr., MD Objective Remarks GENERAL: This is a thin appearing, well-developed patient, in no apparent distress. SKIN: Warm and dry. HEENT: Head sutures intact in the frontal area. Left temporal area arturo clean dry and intact. Left eyelid without any edema or erythema. Pupils equal and reactive. No conjunctival injection. Nonicteric. Nose without bleeding. Airway patent. NECK: Trachea midline. No JVD. Supple. CARDIOVASCULAR: Regular rate and rhythm without murmurs, gallops, or rubs. RESPIRATORY: Clear to auscultation. Breath sounds equal bilaterally. No wheezes , rales, or rhonchi. GASTROINTESTINAL: Abdomen soft, non-tender, nondistended. Bowel Sounds normoactive x4. : Sneed draining yellow urine. MUSCULOSKELETAL: Extremities without clubbing, cyanosis, bilateral upper extremity +1 edema. NEUROLOGICAL: Awake and alert. Oriented to person, place. Cranial nerves II through XII intact. Moves all extremities weakly. Able to follow commands. Speech is normal. 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 CT head reveals diffuse subarachnoid hemorrhage. CTA demonstrates anterior communicating artery aneurysm. Extensive SAH secondary to ruptured ACOM aneurysm Left frontal intraparenchymal hemorrhage, with edema Mild Vasospasm - 5x4x3 mm ACOM aneurysm successfully treated with coil embolization. - Transcranial Doppler c/w vasospasm on the left side 06/19/17, CTA 06/20 no significant vasospasm. Since then serial TCD had been neg for vasospasm - CT head on 06/18/17 had shown left frontal vasogenic edema and intraparenchymal hemorrhage, rpt 06/21 unchanged - Systolic blood pressure target 140-160. Continue metoprolol 12.5-8 hours, labetalol/hydralazine when necessary. Echo EF 65-70%. - Continue Nimotop at 60 mg po q4. Stop date 21 days 07/17/17 - On Keppra 500 q12 - Keep sodium normal. Continue sodium 1 gram tab Q6hrs. Monitor Na levels. - S/P VPS 07/06/17 - Repeat head CT 1. Decreased ventriculomegaly with REMEDIAL PROJECT MANAGER shunt catheter placement as above. 2. Decreased conspicuity of subarachnoid hemorrhage. - Transcranial Doppler studies done today, unremarkable study - Plan to discharge to [place] for comprehensive rehabilitation today Acute hypoxemic respiratory failure Bilateral pleural effusion HCAP - Intubated for airway protection 06/18/17, extubated 07/01. - S/p bilateral pigtail chest tubes with approximately 1 L each removed , output declined L chest tube removed 06/29. R chest tube removed 06/30. - CXR 07/01 worsening LLL opacity concerning for HCAP. broadened abx 07/01 - DuoNeb every 6 hours and when necessary. HOB elevated. - ? HCAP recurrence patient was given VANCO IV, stopped today - Monitor respiratory status C. difficile diarrhea - Previously was on TF via NGT JEvity 1.5 @ 40/hr with beneprotein per nutrition recs, now tolerating regular diet. IV Protonix's will switch to by mouth - Speech eval recommends regular thin liquids. Will continue to monitor patient's progress. Will require speech therapy follow-up in rehabilitation. - DC Dignashield - C. difficile positive . On Flagyl, vancomycin by mouth. ID following. Will continue x10 days - Lactinex BID increased to 3 times a day - Questran q8Hrs - No diarrhea reported overnight Urinary Tract Infection Heidi - Has been on Diflucan 07/01/17 - Sneed cath in place. DC when patient is more mobile - DC diflucan as per ID DVT prop Lovenox GI prop pantoprazole Full code Discussed with , nursing, Dr. Edmond Discharge Planning Plan to discharge to [place] for comprehensive rehabilitation when ready. If ICU bed is needed, may transfer patient to [address] [place] [address]. Ken Williamson Jul 10, 2017 09:11
--- NOTE | 2017-07-10 09:44 | HHI.DCPOC ---
Discharge Care Plan Diagnosis: (1) SAH (subarachnoid hemorrhage) (2) Aneurysm of anterior communicating artery Your Health Problems Are: Difficulty with ADL Skin Breakdown Goals to Promote Your Health * To prevent worsening of your condition and complications * To maintain your health at the optimal level Directions to Meet Your Goals Take your medications as prescribed Follow your dietary instruction Follow activity as directed Keep your appointments as scheduled Take your immunizations and boosters as scheduled If your symptoms worsen call your PCP, if no PCP go to Urgent Care Center or Emergency Room Smoking is Dangerous to Your Health. Avoid second hand smoke Call the 24-hour hour crisis hotline for domestic abuse at Ken Williamson Jul 10, 2017 09:43
--- NOTE | 2017-07-10 09:56 | HHI.DS ---
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 CT head reveals diffuse subarachnoid hemorrhage. CTA demonstrates anterior communicating artery aneurysm. Reviewed by Drs. Yen and Aaron, taken directly to interventional radiology for coiling. BP control accomplished, nimodipine, Keppra started. CBC/BMP: 07/09/176 07/09/171935 Significant Findings Laboratory Tests Test 07/08/17 07/09/17 05:42 19:36 Red Blood Count 2.98 MIL/MM3 2.99 MIL/MM3 (4.00-5.30) (4.00-5.30) Hemoglobin 9.6 GM/DL 9.5 GM/DL (11.6-15.3) (11.6-15.3) Hematocrit 27.2 % 27.8 % (35.0-46.0) (35.0-46.0) Platelet Count 612 TH/MM3 574 TH/MM3 (150-450) (150-450) Creatinine 0.34 MG/DL (0.50-1.00) Blood Urea Nitrogen 22 MG/DL (7-18) Random Glucose 107 MG/DL (74-106) Imaging Last Impressions Transcranial Doppler Study Complete 07/08/17 0000 Signed Impressions: Service Date/Time: June 11:39 - CONCLUSION: Unremarkable study Silas Mtz MD Head CT 07/07/17 0000 Signed Impressions: Service Date/Time: Friday, July 07, 2017 05:11 - CONCLUSION: 1. Decreased ventriculomegaly with MITTEN SEWER shunt catheter placement as above. 2. Decreased conspicuity of subarachnoid hemorrhage. Keegan Bray MD Chest X-Ray 07/01/17 0000 Signed Impressions: Service Date/Time: June 10:05 - CONCLUSION: 1. Increased left perihilar and basilar airspace disease since June 2. Probable small effusions. Endotracheal tube, nasogastric tube and right central line in satisfactory position. No pneumothorax. Poncho Aguilera MD Upper Extremity Ultrasound 06/28/17 0000 Signed Impressions: Service Date/Time: Wednesday, June 28, 2017 09:12 - CONCLUSION: There is thrombus within the left basilic vein and right cephalic vein. Sascha Montez MD Lower Extremity Ultrasound 06/28/17 0000 Signed Impressions: Service Date/Time: Wednesday, June 28, 2017 08:53 - CONCLUSION: Normal examination. Sascha Montez MD Head CTA 06/20/17 0600 Signed Impressions: Service Date/Time: Tuesday, June 20, 2017 07:52 - CONCLUSION: No evidence for any significant spasm. Sascha Montez MD Neck CTA 06/15/17 1125 Signed Impressions: Service Date/Time: Thursday, June 15, 2017 12:10 - CONCLUSION: 1. No stenosis of either carotid artery. 2. No aneurysm seen. 3. Normal variants of the aortic arch. Pascual Sanderson MD Cerebral Arteriogram 06/15/17 0000 Signed Impressions: Service Date/Time: Thursday, June 15, 2017 13:11 - CONCLUSION: 1. 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 2. No significant vasospasm seen on the left. 3. I spoke with Dr. Yen immediately following the procedure. Emile Walker Jr., MD PE at Discharge GENERAL: This is a thin appearing, well-developed patient, in no apparent distress. SKIN: Warm and dry. HEENT: Head sutures intact in the frontal area. Left temporal area arturo clean dry and intact. Left eyelid without any edema or erythema. Pupils equal and reactive. No conjunctival injection. Nonicteric. Nose without bleeding. Airway patent. NECK: Trachea midline. No JVD. Supple. CARDIOVASCULAR: Regular rate and rhythm without murmurs, gallops, or rubs. RESPIRATORY: Clear to auscultation. Breath sounds equal bilaterally. No wheezes , rales, or rhonchi. GASTROINTESTINAL: Abdomen soft, non-tender, nondistended. Bowel Sounds normoactive x4. : Sneed draining yellow urine. MUSCULOSKELETAL: Extremities without clubbing, cyanosis, bilateral upper extremity +1 edema. NEUROLOGICAL: Awake and alert. Oriented to person, place. Cranial nerves II through XII intact. Moves all extremities weakly. Able to follow commands. Speech is normal. Pt update on day of discharge Follow-up visit extensive SAH secondary to ruptured aneurysm, vasospasm, left frontal intraparenchymal hemorrhage with edema status post MITTEN SEWER shunt, respiratory failure, HCAP, C. difficile diarrhea. Patient seen and examined today. states that patient has been itching and rubbing her left eyelid. States she was given Benadryl last night with some relief. But is concerned that something is going on. As per RN, report overnight patient did not have any diarrhea, and no other issues overnight. Patient states that her eyelid occasionally itch but doesn't really bother her. Denies pain and discomfort. Denies SOB/ dyspnea. Denies chest pain, palpitations, headaches, dizziness. Denies fevers, chills, n/v/d. Hospital Course Patient is a 57-year-old female with primary medical history of HTN initially came in with complaints of headache and bilateral lower extremity weakness . CT head reveals diffuse subarachnoid hemorrhage. CTA demonstrates anterior communicating artery aneurysm. Patient had extensive SAH secondary to ruptured A, aneurysm, left frontal intraparenchymal hemorrhage, with edema, mild vasospasm. There was a 5 x 4 x 3 mm 8, aneurysm successfully treated with quell embolization. Imaging studies were done Transcranial Doppler c/w vasospasm on the left side 06/19/17, CTA 06/20 no significant vasospasm. Since then serial TCD had been negative for vasospasm, CT head on 06/18/17 had shown left frontal vasogenic edema and intraparenchymal hemorrhage, rpt 06/21 unchanged. Patient is status post MITTEN SEWER shunt 07/06/17, without complications. Most recent CT showed Decreased ventriculomegaly with MITTEN SEWER shunt catheter placement as above, decreased conspicuity of subarachnoid hemorrhage. Most recent transcranial Doppler studies were unremarkable. Patient will continue Keppra 500 every 12 hours, will continue sodium tabs every 6 hours monitor sodium levels. Patient also continued to use Nimotop 60 mg every 4 hours stop date would be 07/17/17. Patient hospital course was complicated by respiratory failure. She was intubated 06/18/17 and extubated 07/01/17. She also had bilateral pigtail chest tubes which was removed 06/22/17. She was treated for HCAP with IV Vanco that was stopped 07/07/17. Patient is on room air. Improve respiratory status. Urinary tract infection was Heidi and was treated with Diflucan. Patient still has the Sneed catheter and should be discontinued once the patient is more mobile or can be discontinued in rehabilitation and start bladder training. Patient also developed C Diff diarrhea where in she is to be treated with Flagyl , vancomycin mouth. This will continue until stop date. She is started on Lactinex 3 times a day and Questran every 8 hours. Diarrhea has improved. Patient continues to be supplemented with sodium, potassium, and magnesium secondary to diarrhea. Monitor levels and wean off supplements. Goal for Sodium to keep within normal. Patient's overall status is improved. She is now to be transferred to [place] for inpatient comprehensive rehabilitation. Pt Condition on Discharge: Good Discharge Disposition: Rehab Inpatient Discharge Time: > 30 minutes Discharge Instructions DIET: Follow Instructions for: Heart Healthy Diet Speech Therapy-Diet Recommends: Regular Additional Diet Instructions: Thin Liquids Activities you can perform: Regular-No Restrictions Activities to Avoid: Driving Follow up Referrals: Neurosurgery - 4 Weeks PCP Follow-up - 1 Week New Medications: Acetaminophen (Eq Acetaminophen) 325 Mg Tab 650 MG PO Q4H PRN TEMPERATURE > 101.5 F Days 30 TAB Bisacodyl Supp (Bisac-Evac Supp) 10 Mg Supp 10 MG RECTAL DAILY PRN SEVERE CONSITIPATION Days 30 SUPP Cholestyramine (Cholestyramine) 4 Gm/Pkt Powd 4 GM PO Q8HR Diarrhea Days 14 PACK Enoxaparin Inj (Lovenox Inj) 40 Mg/0.4 Ml Syr 40 MG SQ Q24H DVT Prop Days 14 INJECTION Fluconazole (Diflucan) 100 Mg Tab 100 MG PO DAILY Heidi Days 2 TAB Ipratropium-Albuterol Neb (Duoneb) 0.5-2.5 Mg/3 Ml Neb 1 AMPULE NEB Q2HR NEB PRN SHORTNESS OF BREATH Days 30 ML Lactobacillus Acidophilus (Acidophilus/l-Sporogenes) 1 Tab Tab 1 TAB PO Q12HR Diarrhea Days 14 TAB Lactobacillus Acidophilus (Acidophilus/l-Sporogenes) 1 Tab Tab 1 TAB PO TID Diarrhea Days 14 TAB Levetiracetam Liq (Keppra Liq) 500 Mg/5 Ml Soln 500 MG NG Q12HR Seizure Control Days 30 ML Magnesium Oxide (Magnesium Oxide) 241.3 Mg Tab 400 MG PO DAILY suppplement Days 30 TAB Metoprolol Tartrate (Metoprolol Tartrate) 25 Mg Tab 12.5 MG PO Q8H Blood Pressure Management Days 30 TAB Metronidazole (Flagyl) 500 Mg Tab 500 MG PO Q8H C Diff Days 10 TAB Nimodipine (Nimodipine) 30 Mg Cap 60 MG PO Q4HR vasospasm Days 9 CAP Nystatin Topical (Nystatin Topical) 100,000 unit/gm Cream 1 APPLIC TOPICAL Q12HR candidiasis Days 14 TUBE Ondansetron Inj (Ondansetron Inj) 4 Mg/2 Ml Inj 4 MG IV Q6H PRN NAUSEA OR VOMITING Days 30 INJECTION Pantoprazole (Pantoprazole) 40 Mg Tab 40 MG PO DAILY Dyspepsia Days 30 TAB Potassium Bicarb-Chloride Effervescent (Effervescent Potassium Chloride 25 Meq) 25 Meq Tab 25 MEQ PO Q12HR Hypokalemia Days 30 TAB Sodium Chloride (Sodium Chloride) 1 Gm Tab 1 GM OG-TUBE Q6H hyponatremia Days 30 TAB Sodium Chloride (Sodium Chloride) 1 Gm Tab 1 GM PO Q6H Hyponatremia Days 30 TAB Vancomycin Inj (Vancomycin Inj) 500 Mg Inj 250 MG PO QID C diff Days 10 INJECTION Continued Medications: Lisinopril (Lisinopril) 5 Mg Tab 5 MG PO DAILY Blood Pressure Management #30 Ref 0 TAB Ken Williamson Jul 10, 2017 09:56 Guru Edmond MD Jul 10, 2017 15:52
[2017-07-10 10:00] VITALS: PULSE 80
[2017-07-10] MEDS ORDERED: LACT PO (10:04)
[2017-07-10] MEDS ORDERED: KLYTECL PO (10:04)
[2017-07-10] MEDS ORDERED: SODI1TAB PO (10:04)
[2017-07-10] MEDS ORDERED: DIFL100T PO (10:04)
[2017-07-10] MEDS ORDERED: CHOL4POW4 PO (10:04)
[2017-07-10] MEDS ORDERED: MAGN400T3 PO (10:04)
[2017-07-10] MEDS ORDERED: ARTIDRO EACH EYE (10:12)
[2017-07-10] MEDS: ACETAMINOPHEN 325 MG TAB PO PRN (10:56)
[2017-07-11] MEDS ORDERED: MAGNESIUM OXIDE 400 MG TAB PO SCH (09:00)
== END 2017-07-10 11:15 | DRG 20 ==
LOC: NEPD 10:24 → NEDA 13:03 → N03B 17:57 → N05B 07-09 14:28
PROVIDERS: ADMIT Surgery Surgical Critical Care; ATTEND Internal Medicine
PROC: 03VG3DZ Restriction of Intracranial Artery with Intraluminal Device, Percutaneous Approach (ICD-10-PCS; principal; 2017-06-15)
PROC: 009630Z Drainage of Cerebral Ventricle with Drainage Device, Percutaneous Approach (ICD-10-PCS; 2017-06-18)
PROC: 5A1955Z Respiratory Ventilation, Greater than 96 Consecutive Hours (ICD-10-PCS; 2017-06-18)
PROC: 0BH17EZ Insertion of Endotracheal Airway into Trachea, Via Natural or Artificial Opening (ICD-10-PCS; 2017-06-18)
PROC: 02HV33Z Insertion of Infusion Device into Superior Vena Cava, Percutaneous Approach (ICD-10-PCS; 2017-06-18)
PROC: 0W9930Z Drainage of Right Pleural Cavity with Drainage Device, Percutaneous Approach (ICD-10-PCS; 2017-06-22)
PROC: 0W9B30Z Drainage of Left Pleural Cavity with Drainage Device, Percutaneous Approach (ICD-10-PCS; 2017-06-22)
PROC: 30233N1 Transfusion of Nonautologous Red Blood Cells into Peripheral Vein, Percutaneous Approach (ICD-10-PCS; 2017-06-22)
PROC: 0T2BX0Z Change Drainage Device in Bladder, External Approach (ICD-10-PCS; 2017-06-30)
PROC: 00160J6 Bypass Cerebral Ventricle to Peritoneal Cavity with Synthetic Substitute, Open Approach (ICD-10-PCS; 2017-07-06)
DX: I60.2 Nontraumatic subarachnoid hemorrhage from anterior communicating artery (principal); R65.21 Severe sepsis with septic shock; J96.01 Acute respiratory failure with hypoxia; J69.0 Pneumonitis due to inhalation of food and vomit; G93.6 Cerebral edema; A41.9 Sepsis, unspecified organism; G93.41 Metabolic encephalopathy; J15.211 Pneumonia due to Methicillin susceptible Staphylococcus aureus; J90 Pleural effusion, not elsewhere classified; A04.7 Enterocolitis due to Clostridium difficile; G91.0 Communicating hydrocephalus; B37.49 Other urogenital candidiasis; I67.848 Other cerebrovascular vasospasm and vasoconstriction; I10 Essential (primary) hypertension; I61.9 Nontraumatic intracerebral hemorrhage, unspecified; Y95 Nosocomial condition; F17.210 Nicotine dependence, cigarettes, uncomplicated; E87.6 Hypokalemia; E83.42 Hypomagnesemia; E87.70 Fluid overload, unspecified; T83.091A Other mechanical complication of indwelling urethral catheter, initial encounter; Y84.6 Urinary catheterization as the cause of abnormal reaction of the patient, or of later complication, without mention of misadventure at the time of the procedure; H02.9 Unspecified disorder of eyelid
CPT/HCPCS: 31500; 32551; 36222; 36228; 36430; 36556; 36600; 36620; 61210; 61624; 70450; 70496; 70498; 71010; 75894; 76937; 80048; 80053; 80202; 81001; 81003; 82150; 82435; 82533; 82565; 82805; 82945; 82947; 83605; 83615; 83735; 83930; 83935; 83986; 84100; 84132; 84145; 84155; 84157; 84295; 84300; 84484; 84520; 85007; 85025; 85027; 85347; 85610; 85730; 86403; 86850; 86900; 86901; 86920; 87015; 87040; 87070; 87077; 87086; 87102; 87116; 87147; 87186; 87205; 87206; 87493; 87641; 89051; 93005; 93306; 93886; 93970; 94002; 94003; 94150; 94640; 94664; 94667; 94668; 94770; 96374; 96375; C1760; C1769; C1887; C1894; C9113; G0269; J0610; J0690; J0692; J1200; J1265; J1580; J1644; J1650; J1720; J1940; J1953; J1956; J2060; J2150; J2185; J2250; J2260; J2270; J2370; J2405; J2543; J2597; J2710; J3010; J3370; J3475; J3480; J7030; J7040; J7050; J7120; P9016; P9045; P9047; Q9967